=== PATIENT | male | born 1970 | race Caucasian/White ===

== ENCOUNTER 2021-06-27 08:00 | Outpatient (RCR) | payer BC, SELFPAY ==
[2021-06-24 08:12] VITALS: BP 137/57; PULSE 65; TEMP 36.2; BMI 48.7
--- NOTE | 2021-06-24 09:13 | HP.PCM_ITS ---
History of Present Illness Date of Service: 06/24/21 Chief Complaint: Venous stasis ulceration, right pretibial area History of Wound: This is a 51-year-old male with a longstanding history of chronic venous disease. Who presents with a superficial venous stasis ulceration on the right pretibial area. It has been present for only 1 to 2 weeks. He has had ulcerations and cellulitis in this area in the past. He is currently using Xeroform topically, and has been referred by his nurse practitioner in [place], [place]. The patient is morbidly obese. He denies a history of deep vein thrombosis in the past. He claims to sleep on a flat mattress at night. 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 He possesses compression stockings, which were obtained [id number], and has been noncompliant with their use. He experiences pain and swelling in his lower extremities, which has been chronic. [facility] Medical History (Updated 06/24/21 @ 09:[address] Rigo Harrington MD) Chronic venous insufficiency Hyperlipidemia Hyperpigmentation Hypertension Leg pain Leg swelling Lipodermatosclerosis Morbid obesity Venous hypertension, chronic, with inflammation Venous hypertension, chronic, with ulcer and inflammation Venous stasis ulcer Home Medications furosemide 40 mg PO BID 06/24/21 [History Last Taken Unknown] lansoprazole 30 mg PO DAILY 06/24/21 [History Last Taken Unknown] losartan 100 mg PO DAILY 06/24/21 [History Last Taken Unknown] pravastatin 10 mg PO DAILY 06/24/21 [History Last Taken Unknown] Surgical History (Updated 06/24/21 @ 09:[address] Rigo Harrington MD) H/O umbilical hernia repair Social History (Updated 06/24/21 @ 09:[address] 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 General Appearance: cooperative, comfortable, well kempt and well developed Orientation / Consciousness: awake, oriented to person, oriented to place and oriented to time HEENT normocephalic and head/scalp atraumatic Head and Scalp: normal to inspection, normocephalic and atraumatic External Ear: external ears normal Eyes PERRL and EOMs intact bilaterally General Eye: normal appearance of both eyes Resp normal respiratory effort, normal air movement, no retractions and no use of accessory muscles Effort and Inspection: able to speak in complete sentences Extremity no calf tenderness Extremity Narrative: No significant swelling or edema are noted in the patient's lower extremities bilaterally. Chronic hyperpigmentation is noted in the gaiter areas bilaterally, as well as lipodermatosclerosis. General Extremity: Negative for clubbing or cyanosis Skin Wound Narrative: A clustered superficial ulceration is noted on the right pretibial area. Dimensions are documented elsewhere. There is no sign of infection or cellulitis. Neuro oriented x3, CN's II-XII intact bilaterally and moves all extremities Psych Appearance: grossly normal and appropriate Attitude: calm Activity / Motor Behavior: appropriate eye contact Speech: normal speech Mood & Affect: euthymic mood Thought Process: normal thought process Thought Content: normal thought content Attention / Concentration: attention grossly intact Debridement Note Debridement Note Post-Debridement Measurements and Additional Note: Post-Debridement Measurements/Treatment - Nurse 1 - General Ulcer Assessment Start: 06/24/21 08:12 Freq: Status: Active Protocol: .LOWLOUIE Activity Type Activity Date Activity User E-Sign Co-Sign Detail Recorded Client Recorded Date Recorded By Document 06/24/21 08:12 JASON [id number] 06/24/21 08:28 JASON 06/24/21 08:12 - Today's Visit Information Type of service Initial Visit Arrival Mode Ambulatory Patient Identification Verified (Name & Yes ) Height and Weight Height 5 ft 9 in Weight 330 lb Weight in Pounds 330.0 lbs Weight Measurement Method Estimated by Patient Body Mass Index (BMI) 48.7 BMI Classification Obese BSA - Priscilla 2.56 Vital Signs Temperature (97.8 F-99.1 F) 97.2 F L Temperature Source Temporal Pulse Rate (60-100) 65 Pulse Location Monitor Blood Pressure (90/60-120/80) 137/57 H Blood Pressure Mean 83 Source Monitor Position Semi-Fowlers Blood Pressure Location Left Arm History Since Last Visit- (Skip if this is Patient's initial visit) Have you changed medications since your No last visit? Any new allergies or adverse reactions No Had a fall/change in ADL's that may No increase risk of falls Signs or symptoms of abuse and/or No neglect since last visit Have you been in the hospital since your No last visit? Has dressing in place as prescribed No Has compression in place as prescribed N/A Has offloadiing in place as prescribed N/A Experienced any changes in pain level or No management Left Footwear Regular Shoe Right Footwear Regular Shoe Pain Scale: 0-10 Numeric Is Patient Pain Free? Yes WC - Nurse 1 - General Ulcer Measurement Start: 06/24/21 08:12 Freq: Status: Active Protocol: Activity Type Activity Date Activity User E-Sign Co-Sign Detail Recorded Client Recorded Date Recorded By Document 06/24/21 08:12 JASON [id number] 06/24/21 08:28 JASON 06/24/21 08:12 Wound Center Nurse 1 #1 RLE Cluster -Current Size (cm) - Length 8 -Current Size (cm) - Width 10 -Current Size (cm) - Depth 0.1 -Total Square Cm 80 -Exudate Amt Small -Exudate Type Serosanguineous -Wound Margin Distinct, Outline Attached -Granulation Amt Small (1-33%) -Granulation Quality Red -Necrosis Amt None Present (0 %) -Texture (Earlene-wound Skin Appearance) Assessed, Scarring -Moisture (Earlene-wound Skin Appearance) Assessed,Dry/ Scaly -Color (Earlene-wound Skin Appearance) No Abnormality, Assessed -Temperature (Earlene-wound Skin No Abnormality Appearance) (Pt Warm) -Tenderness on Palpation (Earlene-wound No Skin Appearance) -Ulcer Cleansing soap and water -Foul Odor after Cleansing No -Anesthetic Used 5% Lidocaine Gel Right Ankle (cm) 29.1 Left Calf (cm) 46 Left Ankle (cm) 28.2 No debridement was completed: No debridement was completed today Assessment/Plan Assessment/Plan (1) Venous hypertension, chronic, with ulcer and inflammation: CODE(S): I87.339 - Chronic venous hypertension (idiopathic) with ulcer and inflammation of unspecified lower extremity; L97.909 - Non-pressure chronic ulcer of unspecified part of unspecified lower leg with unspecified severity QUALIFIERS: Laterality: right Qualified Code(s): I87.331 - Chronic venous hypertension (idiopathic) with ulcer and inflammation of right lower extremity; L97.919 - Non-pressure chronic ulcer of unspecified part of right lower leg with unspecified severity (2) Chronic venous insufficiency: CODE(S): I87.2 - Venous insufficiency (chronic) (peripheral) (3) Venous stasis ulcer: CODE(S): I83.009 - Varicose veins of unspecified lower extremity with ulcer of unspecified site; L97.909 - Non-pressure chronic ulcer of unspecified part of unspecified lower leg with unspecified severity QUALIFIERS: Venous stasis ulcer site: calf Varicose vein presence: without varicose veins Laterality: right Non-pressure ulcer stage: limited to breakdown of skin Qualified Code(s): I87.2 - Venous insufficiency (chronic) (peripheral); L97.211 - Non-pressure chronic ulcer of right calf limited to breakdown of skin (4) Morbid obesity: CODE(S): E66.01 - Morbid (severe) obesity due to excess calories (5) Hyperpigmentation: CODE(S): L81.9 - Disorder of pigmentation, unspecified (6) Lipodermatosclerosis: CODE(S): I83.10 - Varicose veins of unspecified lower extremity with inflammation QUALIFIERS: Laterality: bilateral Qualified Code(s): I83.11 - Varicose veins of right lower extremity with inflammation; I83.12 - Varicose veins of left lower extremity with inflammation (7) Hypertension: CODE(S): I10 - Essential (primary) hypertension (8) Hyperlipidemia: CODE(S): E78.5 - Hyperlipidemia, unspecified (9) Leg pain: CODE(S): M79.606 - Pain in leg, unspecified QUALIFIERS: Laterality: bilateral Qualified Code(s): M79.604 - Pain in right leg; M79.605 - Pain in left leg (10) Leg swelling: CODE(S): M79.89 - Other specified soft tissue disorders PLAN: This is a 51-year-old male with a longstanding history of chronic venous insufficiency, venous hypertension with inflammation, leg pain, and leg swelling in his lower extremities. He presents with an ulceration in the right lower extremity, which is recurrent. He has had prior ulcerations in the past. 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 He is morbidly obese. We are to implement a regimen of conservative treatment measures, which is to include leg elevation, avoidance of idle standing and sitting, active lifestyle, etc. Compression is to be implemented to the right lower extremity initially by means of an Unna boot, applied today, which will be changed twice weekly. He is to wear his current compression stocking to the left lower extremity daily. The patient has been advised that leg elevation should be to heart level, or higher, as much as possible. Weight loss has been recommended. The patient is to return in 1 week for reassessment. A venous duplex examination is to be obtained to assess the status of the venous system in the patient's lower extremities. Ultimately, the patient will transition to graduated compression stockings of at least 20 to 30 mmHg compression, to be worn long-term. Ultimately, patient may be a candidate for intervention relative to his venous disease, based upon the findings of his upcoming venous duplex examination. Total time 63 minutes.
[2021-06-27 08:13] VITALS: BP 145/75; PULSE 56; RESP 18; TEMP 36.3; BMI 48.7
--- NOTE | 2021-07-08 08:08 | VDLE_ITS ---
Reason For Study: non healing wound RIGHT LEFT CFV is compressible, spontaneous, phasic, CFV is compressible, spontaneous, phasic, competent and demonstrates normal competent, and demonstrates normal augmentation. augmentation. FV is compressible, spontaneous, phasic, FV is compressible, spontaneous, phasic, competent and demonstrates normal competent and demonstrates normal augmentation. augmentation. POP V is compressible, spontaneous, phasic, POP V is compressible, spontaneous, phasic, competent and demonstrates normal competent and demonstrates normal augmentation. augmentation. T/P Trunk is compressible. T/P Trunk is compressible. PTV is compressible. PTV is compressible. RT PerV is compressible. LT PerV is compressible. SFJ is competent and measures 1.06 cm. SFJ is competent and measures 1.01 cm. GSV proximal thigh measures .49 x .55 cm. GSV proximal thigh measures .38 x .35 cm. GSV at knee measures .46 x .43 cm. GSV at knee measures .31 x .34 cm. GSV INCOMPETENT throughout for greater than GSV INCOMPETENT throughout for greater than 0.5 seconds. 0.5 seconds. SSV proximal calf is INCOMPETENT for greater SSV proximal calf is INCOMPETENT for greater than 0.5 seconds and measures .15 x .15 cm. than 0.5 seconds and measures .32 x .32 cm. ASV distal thigh is INCOMPETENT for greater than 0.5 seconds and measures .29 x .31 cm. Procedure This is a venous duplex using B-mode, color flow and spectral Doppler. Exam performed in department. The exam was diagnostic. VL/Venous Duplex US - [facility] Extrem Interpretation Summary Deep veins of the lower extremities are bilaterally patent and compressible seg mentally. There is no evidence of deep vein thrombosis on either side. Valvular competence appears in tact within the proximal deep venous systems bilaterally. The great saphenous veins appear bila terally patent and compressible segmentally. Sapheno-femoral junctions are bilaterally competent . Segmental valvular incompetence is noted within the great saphenous veins bilaterally. Small saphe nous veins are patent and incompetent bilaterally. The accessory saphenous vein in the right distal t high is incompetent. Ordering Physician: Rigo Harrington Performed By: Drew Martinez RVT
== END 2021-06-28 23:59 ==
LOC: WC 08:00
PROVIDERS: PCP Nurse Practitioner Family; Visit Provider Surgery
DX: I87.331 Chronic venous hypertension (idiopathic) with ulcer and inflammation of right lower extremity (principal); L97.811 Non-pressure chronic ulcer of other part of right lower leg limited to breakdown of skin; E66.01 Morbid (severe) obesity due to excess calories; Z91.19 Patient's noncompliance with other medical treatment and regimen; E78.5 Hyperlipidemia, unspecified; I10 Essential (primary) hypertension; M79.89 Other specified soft tissue disorders; Z68.42 Body mass index [BMI] 45.0-49.9, adult; I83.12 Varicose veins of left lower extremity with inflammation; M79.605 Pain in left leg; M79.604 Pain in right leg
CPT/HCPCS: 29580; 99213; G0463

== ENCOUNTER 2021-07-29 08:00 | Outpatient (RCR) | payer BC, SELFPAY ==
[2021-06-29 00:40] VITALS: BP 145/75; PULSE 56; RESP 18; TEMP 36.3
[2021-07-01 08:16] VITALS: BP 145/78; PULSE 100; TEMP 36.3; BMI 48.7
--- NOTE | 2021-07-01 08:40 | HP.PCM_ITS ---
History of Present Illness Date of Service: 07/01/21 Chief Complaint: Venous stasis ulceration, right pretibial area History of Wound: This is a 51-year-old male with a longstanding history of chronic venous disease. Who presented with a superficial venous stasis ulceration on the right pretibial area. It has been present for only 1 to 2 weeks. He has had ulcerations and cellulitis in this area in the past. He had been using Xeroform topically, and was referred by his nurse practitioner in [place], [place]. The patient is morbidly obese. He denies a history of deep vein thrombosis in the past. He claims to sleep on a flat mattress at night. 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 He possesses compression stockings, which were obtained [id number], and has been noncompliant with their use. He experiences pain and swelling in his lower extremities, which has been chronic. [facility] Medical History (Updated 06/24/21 @ 09:[address] Rigo Harrington MD) Chronic venous insufficiency Hyperlipidemia Hyperpigmentation Hypertension Leg pain Leg swelling Lipodermatosclerosis Morbid obesity Venous hypertension, chronic, with inflammation Venous hypertension, chronic, with ulcer and inflammation Venous stasis ulcer Home Medications furosemide 40 mg PO BID 06/24/21 [History Last Taken Unknown] lansoprazole 30 mg PO DAILY 06/24/21 [History Last Taken Unknown] losartan 100 mg PO DAILY 06/24/21 [History Last Taken Unknown] pravastatin 10 mg PO DAILY 06/24/21 [History Last Taken Unknown] Surgical History (Updated 06/24/21 @ 09:[address] Rigo Harrington MD) H/O umbilical hernia repair Social History (Updated 06/24/21 @ 09:[address] 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 Const alert, oriented x3, no apparent distress and well nourished General Appearance: cooperative, comfortable and well developed Orientation / Consciousness: awake, oriented to person, oriented to place and oriented to time HEENT normocephalic and head/scalp atraumatic Head and Scalp: normal to inspection, normocephalic and atraumatic External Ear: external ears normal Eyes PERRL and EOMs intact bilaterally General Eye: normal appearance of both eyes Resp normal respiratory effort, normal air movement, no retractions and no use of accessory muscles Effort and Inspection: able to speak in complete sentences Extremity no calf tenderness Extremity Narrative: Slight swelling and edema are noted in the patient's right lower extremity. But for the ulceration on the right pretibial area, the skin is largely intact, though slightly erythematous. The erythema is thought to represent an inflammatory process, rather than cellulitis. General Extremity: Negative for clubbing or cyanosis Skin Wound Narrative: The ulceration on the right pretibial/lateral calf persists. There is a moderate amount of bioburden. There is no sign of infection or cellulitis. Dimensions are documented elsewhere. Neuro oriented x3, CN's II-XII intact bilaterally, moves all extremities and no focal motor deficits Sensorium / Orientation: awake, oriented to person, oriented to place and oriented to time Psych Appearance: grossly normal and appropriate Attitude: calm Activity / Motor Behavior: appropriate eye contact Speech: normal speech Mood & Affect: euthymic mood Thought Process: normal thought process Thought Content: normal thought content Attention / Concentration: attention grossly intact Debridement Note Debridement Note Post-Debridement Measurements and Additional Note: Post-Debridement Measurements/Treatment - Nurse 1 - General Ulcer Assessment Start: 07/01/21 08:16 Freq: Status: Active Protocol: ELVER.CEM Activity Type Activity Date Activity User E-Sign Co-Sign Detail Recorded Client Recorded Date Recorded By Document 07/01/21 08:16 MIGUEL [id number] 07/01/21 08:28 MIGUEL 07/01/21 08:16 - Today's Visit Information Type of service Follow-up Visit (Physician/[employer] ) Arrival Mode Ambulatory Patient Identification Verified (Name & Yes ) Height and Weight Body Mass Index (BMI) 48.7 BMI Classification Obese Vital Signs Temperature (97.8 F-99.1 F) 97.4 F L Temperature Source Temporal Pulse Rate (60-100) 100 Pulse Location Monitor Blood Pressure (90/60-120/80) 145/78 H Blood Pressure Mean 100 Source Monitor History Since Last Visit- (Skip if this is Patient's initial visit) Have you changed medications since your No last visit? Any new allergies or adverse reactions No Had a fall/change in ADL's that may No increase risk of falls Signs or symptoms of abuse and/or No neglect since last visit Have you been in the hospital since your No last visit? Has dressing in place as prescribed Yes Has compression in place as prescribed No Has offloadiing in place as prescribed N/A Experienced any changes in pain level or No management Left Footwear Regular Shoe Right Footwear Regular Shoe WC - Nurse 1 - General Ulcer Measurement Start: 07/01/21 08:16 Freq: Status: Active Protocol: Activity Type Activity Date Activity User E-Sign Co-Sign Detail Recorded Client Recorded Date Recorded By Document 07/01/21 08:16 MIGUEL [id number] 07/01/21 08:28 MIGUEL 07/01/21 08:16 Wound Center Nurse 1 #1 RLE Cluster -Combined with other wound No -Current Size (cm) - Length 2 -Current Size (cm) - Width 2.4 -Current Size (cm) - Depth 0.1 -Total Square Cm 4.8 -Tunneling No -Undermining/Tunneling No -Circular Undermining No -Change in Wound Grade/Stage No -Exudate Amt None Present -Wound Margin Distinct, Outline Attached -Granulation Amt Small (1-33%) -Granulation Quality Red -Necrosis Amt Small (1-33%) -Necrotic Tissue Type Eschar -Texture (Earlene-wound Skin Appearance) No Abnormality, Assessed -Color (Earlene-wound Skin Appearance) No Abnormality, Assessed -Temperature (Earlene-wound Skin No Abnormality Appearance) (Pt Warm) -Tenderness on Palpation (Earlene-wound Yes Skin Appearance) -Ulcer Cleansing soap and water -Anesthetic Used 5% Lidocaine Gel Right Calf (cm) 47.5 Right Ankle (cm) 22.2 Wound debrided: Right pretibial/lateral calf Laterality: Right Type of Debridement: Excisional debridement Anesthesia Used: 5% Lidocaine Gel Depth: Down to and including healthy tissue and in the subcutaneous layer Percentage of wound debrided: 100 Instrument Used: 5mm curette Tissue Removed: Bioburden Severity: Fat Layer Exposed Amount of bleeding with debridement: Mild Bleeding Controlled with: Compression and gauze Patient tolerated procedure: Patient tolerated procedure well Assessment/Plan Assessment/Plan (1) Venous stasis ulcer: CODE(S): I83.009 - Varicose veins of unspecified lower extremity with ulcer of unspecified site; L97.909 - Non-pressure chronic ulcer of unspecified part of unspecified lower leg with unspecified severity QUALIFIERS: Venous stasis ulcer site: calf Varicose vein presence: without varicose veins Laterality: right Non-pressure ulcer stage: limited to breakdown of skin Qualified Code(s): I87.2 - Venous insufficiency (chronic) (peripheral); L97.211 - Non-pressure chronic ulcer of right calf limited to breakdown of skin (2) Venous hypertension, chronic, with ulcer and inflammation: CODE(S): I87.339 - Chronic venous hypertension (idiopathic) with ulcer and inflammation of unspecified lower extremity; L97.909 - Non-pressure chronic ulcer of unspecified part of unspecified lower leg with unspecified severity QUALIFIERS: Laterality: right Qualified Code(s): I87.331 - Chronic venous hypertension (idiopathic) with ulcer and inflammation of right lower extremity; L97.919 - Non-pressure chronic ulcer of unspecified part of right lower leg with unspecified severity (3) Venous hypertension, chronic, with inflammation: CODE(S): I87.329 - Chronic venous hypertension (idiopathic) with inflammation of unspecified lower extremity (4) Chronic venous insufficiency: CODE(S): I87.2 - Venous insufficiency (chronic) (peripheral) (5) Leg swelling: CODE(S): M79.89 - Other specified soft tissue disorders (6) Leg pain: CODE(S): M79.606 - Pain in leg, unspecified QUALIFIERS: Laterality: bilateral Qualified Code(s): M79.604 - Pain in right leg; M79.605 - Pain in left leg (7) Hyperlipidemia: CODE(S): E78.5 - Hyperlipidemia, unspecified (8) Hypertension: CODE(S): I10 - Essential (primary) hypertension (9) Lipodermatosclerosis: CODE(S): I83.10 - Varicose veins of unspecified lower extremity with inflammation QUALIFIERS: Laterality: bilateral Qualified Code(s): I83.11 - Va ricose veins of right lower extremity with inflammation; I83.12 - Varicose veins of left lower extremity with inflammation (10) Hyperpigmentation: CODE(S): L81.9 - Disorder of pigmentation, unspecified (11) Morbid obesity: CODE(S): E66.01 - Morbid (severe) obesity due to excess calories (12) H/O umbilical hernia repair: CODE(S): Z98.890 - Other specified postprocedural states; Z87.19 - Personal history of other diseases of the digestive system PLAN: This is a 51-year-old male with a longstanding history of chronic venous insufficiency, venous hypertension with inflammation, leg pain, and leg swelling in his lower extremities. He presented with an ulceration in the right lower extremity, which is recurrent. He has had prior ulcerations in the past. 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 He is morbidly obese. We are to implement a regimen of conservative treatment measures, which is to include leg elevation, avoidance of idle standing and sitting, active lifestyle, etc. Compression is to be continued to the right lower extremity by means of an Unna boot, applied twice weekly. Promogran will be applied each time to the ulceration topically. He is to wear his current compression stocking to the left lower extremity daily. The patient has been advised that leg elevation s hould be to heart level, or higher, as much as possible. Weight loss has been recommended. The patient is to return in 1 week for reassessment. A venous duplex examination is to be obtained to assess the status of the venous system in the patient's lower extremities, and is scheduled for 1 week from today. Ultimately, the patient will transition to graduated compression stockings of at least 20 to 30 mmHg compression, to be worn long-term. Ultimately, patient may be a candidate for intervention relative to his venous disease, based upon the findings of his upcoming venous duplex examination. Total time 29 minutes.
[2021-07-08 09:05] VITALS: BP 140/64; PULSE 59; RESP 20; TEMP 36.6; BMI 48.7
--- NOTE | 2021-07-08 14:19 | PCM.WC.HP ---
History of Present Illness Date of Service: 07/08/21 Chief Complaint: Venous stasis ulceration, right pretibial area History of Wound: This is a 51-year-old male with a longstanding history of chronic venous disease. He presented with a superficial venous stasis ulceration on the right pretibial area. It has been present for only 1 to 2 weeks. He has had ulcerations and cellulitis in this area in the past. He had been using Xeroform topically, and was referred by his nurse practitioner in [place], [place]. The patient is morbidly obese. He denies a history of deep vein thrombosis in the past. He claims to sleep on a flat mattress at night. 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 He possesses compression stockings, which were obtained [id number], and has been noncompliant with their use. He experiences pain and swelling in his lower extremities, which has been chronic. FOR[facility]LY [facility] Medical History Chronic venous insufficiency Hyperlipidemia Hyperpigmentation Hypertension Leg pain Leg swelling Lipodermatosclerosis Morbid obesity Venous hypertension, chronic, with inflammation Venous hypertension, chronic, with ulcer and inflammation Venous stasis ulcer Home Medications furosemide 40 mg PO BID 06/24/21 [History Last Taken Unknown] lansoprazole 30 mg PO DAILY 06/24/21 [History Last Taken Unknown] losartan 100 mg PO DAILY 06/24/21 [History Last Taken Unknown] pravastatin 10 mg PO DAILY 06/24/21 [History Last Taken Unknown] Surgical History H/O umbilical hernia repair Social History 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 Smoking Status: Never smoker details: The patient denies use of alcohol Vital Signs Vital Signs Vital Signs: 07/08/21 09:05 Temperature 97.8 F Temperature Source Temporal Pulse Rate 59 L Respiratory Rate 20 H Blood Pressure 140/64 H Blood Pressure Mean 89 Blood Pressure Source Monitor Weight Weight: 330 lb Body Mass Index (BMI) 48.7 Physical Exam Const alert, oriented x3, no apparent distress and well nourished General Appearance: cooperative, comfortable and well developed Orientation / Consciousness: awake, oriented to person, oriented to place and oriented to time Exam Limitations: no limitations HEENT normocephalic and head/scalp atraumatic Head and Scalp: normal to inspection, normocephalic and atraumatic External Ear: external ears normal Eyes PERRL and EOMs intact bilaterally General Eye: normal appearance of both eyes Resp normal respiratory effort, normal air movement, no retractions and no use of accessory muscles Effort and Inspection: able to speak in complete sentences Extremity no calf tenderness General Extremity: Negative for clubbing or cyanosis Skin Wound Narrative: The ulceration on the right pretibial/anterolateral aspect of the right calf persists. It is slightly smaller, but generally little changed in appearance. There is a small amount of bioburden. There is no sign of infection or cellulitis. Dimensions are documented elsewhere. Neuro oriented x3, CN's II-XII intact bilaterally and moves all extremities Psych mental status grossly normal Appearance: grossly normal and appropriate Attitude: calm Activity / Motor Behavior: appropriate eye contact Speech: normal speech Mood & Affect: euthymic mood Thought Process: normal thought process Thought Content: normal thought content Attention / Concentration: attention grossly intact Debridement Note Debridement Note Post-Debridement Measurements and Additional Note: Post-Debridement Measurements/Treatment - Nurse 1 - General Ulcer Assessment Start: 07/01/21 08:16 Freq: Status: Active Protocol: JUSTINE Activity Type Activity Date Activity User E-Sign Co-Sign Detail Recorded Client Recorded Date Recorded By Document 07/01/21 08:16 AK [id number] 07/01/21 08:28 AK Document 07/08/21 09:05 DL [id number] 07/08/21 09:17 DL 07/01/21 07/08/21 08:16 09:05 - Today's Visit Information Type of service Follow-up Visit Follow-up Visit (Physician/MANAGER LEARNING (Physician/MANAGER LEARNING ) ) Arrival Mode Ambulatory Ambulatory Transfer Assistance None Patient Identification Verified (Name & Yes ) Patient Requires Transmission-Based No Precautions Height and Weight Body Mass Index (BMI) 48.7 48.7 BMI Classification Obese Obese Vital Signs Temperature (97.8 F-99.1 F) 97.4 F L 97.8 F Temperature Source Temporal Temporal Pulse Rate (60-100) 100 59 L Pulse Location Monitor Monitor Respiratory Rate (12-18) 20 H Respiratory rate source Observation Blood Pressure (90/60-120/80) 145/78 H 140/64 H Blood Pressure Mean 100 89 Source Monitor Monitor History Since Last Visit- (Skip if this is Patient's initial visit) Have you changed medications since your No No last visit? Any new allergies or adverse reactions No No Had a fall/change in ADL's that may No No increase risk of falls Signs or symptoms of abuse and/or No No neglect since last visit Have you been in the hospital since your No No last visit? Has dressing in place as prescribed Yes Yes Has compression in place as prescribed No Yes Has offloadiing in place as prescribed N/A N/A Experienced any changes in pain level or No No management Left Footwear Regular Shoe Right Footwear Regular Shoe Pain Scale: 0-10 Numeric Is Patient Pain Free? Yes WC - Nurse 1 - General Ulcer Measurement Start: 07/01/21 08:16 Freq: Status: Active Protocol: Activity Type Activity Date Activity User E-Sign Co-Sign Detail Recorded Client Recorded Date Recorded By Document 07/01/21 08:16 AK [id number] 07/01/21 08:28 AK Document 07/08/21 09:05 DL [id number] 07/08/21 09:17 DL 07/01/21 07/08/21 08:16 09:05 Wound Center Nurse 1 #2 RLE Med Ankle -Current Size (cm) - Length 0.3 -Current Size (cm) - Width 0.3 -Current Size (cm) - Depth 0.1 -Total Square Cm 0.09 -Photo Taken No -Exudate Amt Small -Exudate Type Serosanguineous -Wound Margin Distinct, Outline Attached -Granulation Amt None Present (0 %) -Necrosis Amt Large (67-100%) -Necrotic Tissue Type Adherent Slough -Structure Exposed N/A -Texture (Earlene-wound Skin Appearance) Scarring -Moisture (Earlene-wound Skin Appearance) No Abnormality -Color (Earlene-wound Skin Appearance) Hemosiderin Staining -Temperature (Earlene-wound Skin No Abnormality Appearance) (Pt Warm) -Tenderness on Palpation (Earlene-wound No Skin Appearance) -Ulcer Cleansing Wound Cleanser -Foul Odor after Cleansing No -Anesthetic Used 4% Lidocaine Solution #1 RLE Cluster -Combined with other wound No -Current Size (cm) - Length 2 2.6 -Current Size (cm) - Width 2.4 2.1 -Current Size (cm) - Depth 0.1 0.1 -Total Square Cm 4.8 5.46 -Photo Taken No -Tunneling No -Undermining/Tunneling No -Circular Undermining No -Change in Wound Grade/Stage No -Exudate Amt None Present Medium -Exudate Type Serosanguineous -Wound Margin Distinct, Distinct, Outline Outline Attached Attached -Granulation Amt Small (1-33%) Medium (34-66%) -Granulation Quality Red -Necrosis Amt Small (1-33%) Medium (34-66%) -Necrotic Tissue Type Eschar Adherent Slough -Structure Exposed N/A -Texture (Earlene-wound Skin Appearance) No Abnormality, Scarring Assessed -Moisture (Earlene-wound Skin Appearance) No Abnormality -Color (Earlene-wound Skin Appearance) No Abnormality, Hemosiderin Assessed Staining -Temperature (Earlene-wound Skin No Abnormality No Abnormality Appearance) (Pt Warm) (Pt Warm) -Tenderness on Palpation (Earlene-wound Yes No Skin Appearance) -Ulcer Cleansing soap and water Wound Cleanser -Foul Odor after Cleansing No -Anesthetic Used 5% Lidocaine 4% Lidocaine Gel Solution Right Calf (cm) 47.5 45.2 Right Ankle (cm) 22.2 27.5 WC - Nurse 2 - General Ulcer CM Notes Start: 07/01/21 08:16 Freq: Status: Active Protocol: Activity Type Activity Date Activity User E-Sign Co-Sign Detail Recorded Client Recorded Date Recorded By Document 07/01/21 11:57 OVI [id number] 07/01/21 11:57 Document 07/08/21 12:49 PL [id number] 07/08/21 12:53 PL 07/01/21 07/08/21 11:57 12:49 Wound Center Nurse 2 #1 RLE Cluster -Time 08:35 09:38 -Correct Patient Yes Yes -Correct Side, Site, Position Yes Yes -Correct Procedure Yes Yes -Procedure Performed Yes Yes -Type of Procedure Debridement Debridement -Clinical Debridement Subcutaneous Subcutaneous -Tissue Removed Subcutaneous Subcutaneous -Post Debridement (cm) - Length 2.0 2.6 -Post Debridement (cm) - Width 2.4 2.1 -Post Debridement (cm) - Depth 0.4 0.1 -Total Square (Post) (cm) 4.80 5.46 -Area of Debridement (cm) - Length 2.0 2.6 -Area of Debridement (cm) - Width 2.4 2.1 -Total Square (Area) (cm) 4.80 5.46 -Tunneling No No -Undermining/Tunneling No No -Circular Undermining No No -Wound/Ulcer Outcome Not Healed Not Healed -Ulcer Cleansing Rinsed/ Rinsed/ Irrigated with Irrigated with Saline Saline -Foul Odor after Cleansing No No -Bioengineered Tissue No No -Bleeding Controlled with Pressure Pressure -Treatment Response Procedure Procedure Tolerated Well Tolerated Well -Debridement - Subq, 1st 20sq cm Yes Yes - Nurse 3 - General Ulcer D/C NN Start: 07/01/21 08:16 Freq: Status: Active Protocol: Activity Type Activity Date Activity User E-Sign Co-Sign Detail Recorded Client Recorded Date Recorded By Document 07/01/21 08:50 KR [id number] 07/01/21 08:51 KR Document 07/08/21 09:57 KR [id number] 07/08/21 09:58 KR 07/01/21 07/08/21 08:50 09:57 Wound Care Nurse 3 #2 RLE Med Ankle -Ulcer Cleansing Rinsed/ Irrigated with Saline -Primary Dressing Applied Promogran -Primary Dressing Covered/Secured with Dry Gauze -Promogran 1 #1 RLE Cluster -Ulcer Cleansing Rinsed/ Irrigated with Saline -Primary Dressing Applied Promogran -Primary Dressing Covered/Secured with Dry Gauze, Dry Gauze Secured with Tape -Promogran 1 Right -Multi-Layered Wrap Application Unna Boot - Unna Boot - Right ($) Right ($) Pain Scale: 0-10 Numeric Is Patient Pain Free? Yes Yes - Visit Discharge Discharge Condition Stable Stable Ambulatory Status Ambulatory Ambulatory Transportation Private Auto Private Auto Wound debrided: Right pretibial Laterality: Right Type of Debridement: Excisional debridement Anesthesia Used: 5% Lidocaine Gel Depth: Down to and including healthy tissue and in the subcutaneous layer Percentage of wound debrided: 100 Instrument Used: 5mm curette Tissue Removed: Bioburden Severity: Fat Layer Exposed Amount of bleeding with debridement: Mild Bleeding Controlled with: Compression and gauze Patient tolerated procedure: Patient tolerated procedure well Assessment/Plan Assessment/Plan (1) Venous hypertension, chronic, with inflammation: CODE(S): I87.329 - Chronic venous hypertension (idiopathic) with inflammation of unspecified lower extremity (2) Venous stasis ulcer: CODE(S): I83.009 - Varicose veins of unspecified lower extremity with ulcer of unspecified site; L97.909 - Non-pressure chronic ulcer of unspecified part of unspecified lower leg with unspecified severity QUALIFIERS: Venous stasis ulcer site: calf Varicose vein presence: without varicose veins Laterality: right Non-pressure ulcer stage: limited to breakdown of skin Qualified Code(s): I87.2 - Venous insufficiency (chronic) (peripheral); L97.211 - Non-pressure chronic ulcer of right calf limited to breakdown of skin (3) Venous hypertension, chronic, with ulcer and inflammation: CODE(S): I87.339 - Chronic venous hypertension (idiopathic) with ulcer and inflammation of unspecified lower extremity; L97.909 - Non-pressure chronic ulcer of unspecified part of unspecified lower leg with unspecified severity QUALIFIERS: Laterality: right Qualified Code(s): I87.331 - Chronic venous hypertension (idiopathic) with ulcer and inflammation of right lower extremity; L97.919 - Non-pressure chronic ulcer of unspecified part of right lower leg with unspecified severity (4) Chronic venous insufficiency: CODE(S): I87.2 - Venous insufficiency (chronic) (peripheral) (5) Leg swelling: CODE(S): M79.89 - Other specified soft tissue disorders (6) Leg pain: CODE(S): M79.606 - Pain in leg, unspecified QUALIFIERS: Laterality: bilateral Qualified Code(s): M79.604 - Pain in right leg; M79.605 - Pain in left leg (7) Hyperlipidemia: CODE(S): E78.5 - Hyperlipidemia, unspecified (8) Hypertension: CODE(S): I10 - Essential (primary) hypertension (9) Morbid obesity: CODE(S): E66.01 - Morbid (severe) obesity due to excess calories (10) Lipodermatosclerosis: CODE(S): I83.10 - Varicose veins of unspecified lower extremity with inflammation QUALIFIERS: Laterality: bilateral Qualified Code(s): I83.11 - Varicose veins of right lower extremity with inflammation; I83.12 - Varicose veins of left lower extremity with inflammation (11) Hyperpigmentation: CODE(S): L81.9 - Disorder of pigmentation, unspecified (12) H/O umbilical hernia repair: CODE(S): Z98.890 - Other specified postprocedural states; Z87.19 - Personal history of other diseases of the digestive system PLAN: This is a 51-year-old male with a longstanding history of chronic venous insufficiency, venous hypertension with inflammation, leg pain, and leg swelling in his lower extremities. He presented with an ulceration in the right lower extremity, which is recurrent. He has had prior ulcerations in the past. 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 He is morbidly obese. We are to implement a regimen of conservative treatment measures, which is to include leg elevation, avoidance of idle standing and sitting, active lifestyle, etc. Compression is to be continued to the right lower extremity by means of an Unna boot, applied twice weekly. Promogran will be applied each time to the ulceration topically. He is to wear his current compression stocking to the left lower extremity daily. The patient has been advised that leg elevation should be to heart level, or higher, as much as possible. Weight loss has been recommended. The patient is to return in 1 week for reassessment. A venous duplex examination was performed earlier today, the results of which are awaited. Ultimately, the patient will transition to graduated compression stockings of at least 20 to 30 mmHg compression, to be worn long-term. Ultimately, the patient may be a candidate for intervention relative to his venous disease, based upon the findings of his venous duplex examination. Total time 28 minutes.
[2021-07-11 08:02] VITALS: BP 145/74; PULSE 60; TEMP 36.2; BMI 48.7
[2021-07-15 07:58] VITALS: BP 138/69; PULSE 56; TEMP 36.5; BMI 48.7
--- NOTE | 2021-07-15 08:20 | PCM.WC.HP ---
History of Present Illness Date of Service: 07/15/21 Chief Complaint: Venous stasis ulceration, right pretibial area History of Wound: This is a 51-year-old male with a longstanding history of chronic venous disease. He presented with a superficial venous stasis ulceration on the right pretibial area. It has been present for only 1 to 2 weeks. He has had ulcerations and cellulitis in this area in the past. He had been using Xeroform topically, and was referred by his nurse practitioner in [place], [place]. The patient is morbidly obese. He denies a history of deep vein thrombosis in the past. He claims to sleep on a flat mattress at night. 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 He possesses compression stockings, which were obtained [id number], and has been noncompliant with their use. He experiences pain and swelling in his lower extremities, which has been chronic. [facility] Medical History Chronic venous insufficiency Hyperlipidemia Hyperpigmentation Hypertension Leg pain Leg swelling Lipodermatosclerosis Morbid obesity Venous hypertension, chronic, with inflammation Venous hypertension, chronic, with ulcer and inflammation Venous stasis ulcer Home Medications furosemide 40 mg PO BID 06/24/21 [History Last Taken Unknown] lansoprazole 30 mg PO DAILY 06/24/21 [History Last Taken Unknown] losartan 100 mg PO DAILY 06/24/21 [History Last Taken Unknown] pravastatin 10 mg PO DAILY 06/24/21 [History Last Taken Unknown] Surgical History H/O umbilical hernia repair Social History 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 Smoking Status: Never smoker details: The patient denies use of alcohol Vital Signs Vital Signs Vital Signs: 07/15/21 07:58 Temperature 97.7 F L Temperature Source Temporal Pulse Rate 56 L Blood Pressure 138/69 H Blood Pressure Mean 92 Blood Pressure Source Monitor Weight Weight: 330 lb Body Mass Index (BMI) 48.7 Physical Exam Const alert, oriented x3, no apparent distress and well nourished General Appearance: cooperative, comfortable and well developed Orientation / Consciousness: awake, oriented to person, oriented to place and oriented to time HEENT normocephalic and head/scalp atraumatic Head and Scalp: normal to inspection, normocephalic and atraumatic External Ear: external ears normal Eyes PERRL and EOMs intact bilaterally General Eye: normal appearance of both eyes Resp normal respiratory effort, normal air movement, no retractions and no use of accessory muscles Effort and Inspection: able to speak in complete sentences Extremity no calf tenderness Extremity Narrative: Slight swelling and edema are noted in the patient's right lower extremity. Hyperpigmentation is noted in the patient's right gaiter area, indicative of chronic venous skin changes. General Extremity: Negative for clubbing or cyanosis Skin Wound Narrative: The venous ulceration on the right pretibial area is much improved. Dimensions are documented elsewhere. There is no sign of infection or cellulitis. The base of the ulceration is pink and healthy, with active granulation tissue. There is evidence of epithelialization, and the ulceration is now clustered, with areas of epithelialization intermixed within the body of the ulceration. There is a small amount of bioburden. Neuro oriented x3, CN's II-XII intact bilaterally, moves all extremities and no focal motor deficits Sensorium / Orientation: awake, alert, oriented to person, oriented to place and oriented to time Psych Appearance: grossly normal and appropriate Attitude: calm Activity / Motor Behavior: appropriate eye contact Speech: normal speech Mood & Affect: euthymic mood Thought Process: normal thought process Thought Content: normal thought content Attention / Concentration: attention grossly intact Debridement Note Debridement Note Post-Debridement Measurements and Additional Note: Post-Debridement Measurements/Treatment - Nurse 1 - General Ulcer Assessment Start: 07/01/21 08:16 Freq: Status: Active Protocol: [email or web address] Activity Type Activity Date Activity User E-Sign Co-Sign Detail Recorded Client Recorded Date Recorded By Document 07/01/21 08:16 AK [id number] 07/01/21 08:28 AK Document 07/08/21 09:05 DL [id number] 07/08/21 09:17 DL Document 07/11/21 08:02 AK Desktop 07/11/21 08:05 AK Document 07/15/21 07:58 AK [id number] 07/15/21 08:04 AK 07/01/21 07/08/21 07/11/21 08:16 09:05 08:02 [facility] Today's Visit Information Type of service Follow-up Visit Follow-up Visit Nurse-only (Physician/INSTRUCTIONAL SERVICES SPECIALIST (Physician/INSTRUCTIONAL SERVICES SPECIALIST Visit ) ) Arrival Mode Ambulatory Ambulatory Ambulatory Transfer Assistance None Patient Identification Verified (Name & Yes Yes ) Patient Requires Transmission-Based No Precautions Height and Weight Body Mass Index (BMI) 48.7 48.7 48.7 BMI Classification Obese Obese Obese Vital Signs Temperature (97.8 F-99.1 F) 97.4 F L 97.8 F 97.2 F L Temperature Source Temporal Temporal Temporal Pulse Rate (60-100) 100 59 L 60 Pulse Location Monitor Monitor Monitor Respiratory Rate (12-18) 20 H Respiratory rate source Observation Blood Pressure (90/60-120/80) 145/78 H 140/64 H 145/74 H Blood Pressure Mean 100 89 97 Source Monitor Monitor Monitor History Since Last Visit- (Skip if this is Patient's initial visit) Have you changed medications since your No No No last visit? Any new allergies or adverse reactions No No No Had a fall/change in ADL's that may No No No increase risk of falls Signs or symptoms of abuse and/or No No No neglect since last visit Have you been in the hospital since your No No No last visit? Has dressing in place as prescribed Yes Yes Yes Has compression in place as prescribed No Yes Yes Has offloadiing in place as prescribed N/A N/A N/A Experienced any changes in pain level or No No management Left Footwear Regular Shoe Regular Shoe Right Footwear Regular Shoe Regular Shoe Pain Scale: 0-10 Numeric Is Patient Pain Free? Yes 07/15/21 07:58 [facility] Today's Visit Information Type of service Follow-up Visit (Physician/INSTRUCTIONAL SERVICES SPECIALIST ) Arrival Mode Ambulatory Transfer Assistance Patient Identification Verified (Name & Yes ) Patient Requires Transmission-Based Precautions Height and Weight Body Mass Index (BMI) 48.7 BMI Classification Obese Vital Signs Temperature (97.8 F-99.1 F) 97.7 F L Temperature Source Temporal Pulse Rate (60-100) 56 L Pulse Location Monitor Respiratory Rate (12-18) Respiratory rate source Blood Pressure (90/60-120/80) 138/69 H Blood Pressure Mean 92 Source Monitor History Since Last Visit- (Skip if this is Patient's initial visit) Have you changed medications since your No last visit? Any new allergies or adverse reactions No Had a fall/change in ADL's that may No increase risk of falls Signs or symptoms of abuse and/or No neglect since last visit Have you been in the hospital since your No last visit? Has dressing in place as prescribed Yes Has compression in place as prescribed Yes Has offloadiing in place as prescribed Yes Experienced any changes in pain level or management Left Footwear Regular Shoe Right Footwear Regular Shoe Pain Scale: 0-10 Numeric Is Patient Pain Free? WC - Nurse 1 - General Ulcer Measurement Start: 07/01/21 08:16 Freq: Status: Active Protocol: Activity Type Activity Date Activity User E-Sign Co-Sign Detail Recorded Client Recorded Date Recorded By Document 07/01/21 08:16 AK [id number] 07/01/21 08:28 AK Document 07/08/21 09:05 DL [id number] 07/08/21 09:17 DL Document 07/11/21 08:02 AK Desktop 07/11/21 08:05 AK Document 07/15/21 07:58 AK [id number] 07/15/21 08:04 AK 07/01/21 07/08/21 07/11/21 08:16 09:05 08:02 Wound Center Nurse 1 #2 RLE Med Ankle -Current Size (cm) - Length 0.3 -Current Size (cm) - Width 0.3 -Current Size (cm) - Depth 0.1 -Total Square Cm 0.09 -Photo Taken No -Exudate Amt Small -Exudate Type Serosanguineous -Wound Margin Distinct, Outline Attached -Granulation Amt None Present (0 %) -Necrosis Amt Large (67-100%) -Necrotic Tissue Type Adherent Slough -Structure Exposed N/A -Texture (Earlene-wound Skin Appearance) Scarring -Moisture (Earlene-wound Skin Appearance) No Abnormality -Color (Earlene-wound Skin Appearance) Hemosiderin Staining -Temperature (Earlene-wound Skin No Abnormality Appearance) (Pt Warm) -Tenderness on Palpation (Earlene-wound No Skin Appearance) -Ulcer Cleansing Wound Cleanser -Foul Odor after Cleansing No -Anesthetic Used 4% Lidocaine Solution #1 RLE Cluster -Combined with other wound No -Current Size (cm) - Length 2 2.6 -Current Size (cm) - Width 2.4 2.1 -Current Size (cm) - Depth 0.1 0.1 -Total Square Cm 4.8 5.46 -Photo Taken No -Tunneling No -Undermining/Tunneling No -Circular Undermining No -Change in Wound Grade/Stage No -Exudate Amt None Present Medium -Exudate Type Serosanguineous -Wound Margin Distinct, Distinct, Outline Outline Attached Attached -Granulation Amt Small (1-33%) Medium (34-66%) -Granulation Quality Red -Necrosis Amt Small (1-33%) Medium (34-66%) -Necrotic Tissue Type Eschar Adherent Slough -Structure Exposed N/A -Texture (Earlene-wound Skin Appearance) No Abnormality, Scarring Assessed -Moisture (Earlene-wound Skin Appearance) No Abnormality -Color (Earlene-wound Skin Appearance) No Abnormality, Hemosiderin Assessed Staining -Temperature (Earlene-wound Skin No Abnormality No Abnormality Appearance) (Pt Warm) (Pt Warm) -Tenderness on Palpation (Earlene-wound Yes No Skin Appearance) -Ulcer Cleansing soap and water Wound Cleanser Rinsed/ Irrigated with Saline -Foul Odor after Cleansing No -Anesthetic Used 5% Lidocaine 4% Lidocaine Gel Solution Right Calf (cm) 47.5 45.2 Right Ankle (cm) 22.2 27.5 Point of Measurement (cm from the medial instep) 07/15/21 07:58 Wound Center Nurse 1 #2 RLE Med Ankle -Current Size (cm) - Length -Current Size (cm) - Width -Current Size (cm) - Depth -Total Square Cm -Photo Taken -Exudate Amt -Exudate Type -Wound Margin -Granulation Amt -Necrosis Amt -Necrotic Tissue Type -Structure Exposed -Texture (Earlene-wound Skin Appearance) -Moisture (Earlene-wound Skin Appearance) -Color (Earlene-wound Skin Appearance) -Temperature (Earlene-wound Skin Appearance) -Tenderness on Palpation (Earlene-wound Skin Appearance) -Ulcer Cleansing -Foul Odor after Cleansing -Anesthetic Used #1 RLE Cluster -Combined with other wound -Current Size (cm) - Length 2 -Current Size (cm) - Width 2.1 -Current Size (cm) - Depth 0.1 -Total Square Cm 4.2 -Photo Taken No -Tunneling No -Undermining/Tunneling No -Circular Undermining No -Change in Wound Grade/Stage No -Exudate Amt -Exudate Type Serosanguineous -Wound Margin Distinct, Outline Attached -Granulation Amt Medium (34-66%) -Granulation Quality Deridder -Necrosis Amt Small (1-33%) -Necrotic Tissue Type Adherent Slough -Structure Exposed N/A -Texture (Earlene-wound Skin Appearance) Assessed, Scarring -Moisture (Earlene-wound Skin Appearance) No Abnormality, Assessed -Color (Earlene-wound Skin Appearance) Assessed, Hemosiderin Staining -Temperature (Earlene-wound Skin No Abnormality Appearance) (Pt Warm) -Tenderness on Palpation (Earlene-wound No Skin Appearance) -Ulcer Cleansing Rinsed/ Irrigated with Saline -Foul Odor after Cleansing -Anesthetic Used 5% Lidocaine Gel Right Calf (cm) 47 Right Ankle (cm) Point of Measurement (cm from the medial 29.5 instep) WC - Nurse 2 - General Ulcer CM Notes Start: 07/01/21 08:16 Freq: Status: Active Protocol: Activity Type Activity Date Activity User E-Sign Co-Sign Detail Recorded Client Recorded Date Recorded By Document 07/01/21 11:57 PL [id number] 07/01/21 11:57 PL Document 07/08/21 12:49 PL [id number] 07/08/21 12:53 PL 07/01/21 07/08/21 11:57 12:49 Wound Center Nurse 2 #1 RLE Cluster -Time 08:35 09:38 -Correct Patient Yes Yes -Correct Side, Site, Position Yes Yes -Correct Procedure Yes Yes -Procedure Performed Yes Yes -Type of Procedure Debridement Debridement -Clinical Debridement Subcutaneous Subcutaneous -Tissue Removed Subcutaneous Subcutaneous -Post Debridement (cm) - Length 2.0 2.6 -Post Debridement (cm) - Width 2.4 2.1 -Post Debridement (cm) - Depth 0.4 0.1 -Total Square (Post) (cm) 4.80 5.46 -Area of Debridement (cm) - Length 2.0 2.6 -Area of Debridement (cm) - Width 2.4 2.1 -Total Square (Area) (cm) 4.80 5.46 -Tunneling No No -Undermining/Tunneling No No -Circular Undermining No No -Wound/Ulcer Outcome Not Healed Not Healed -Ulcer Cleansing Rinsed/ Rinsed/ Irrigated with Irrigated with Saline Saline -Foul Odor after Cleansing No No -Bioengineered Tissue No No -Bleeding Controlled with Pressure Pressure -Treatment Response Procedure Procedure Tolerated Well Tolerated Well -Debridement - Subq, 1st 20sq cm Yes Yes WC - Nurse 3 - General Ulcer D/C NN Start: 07/01/21 08:16 Freq: Status: Active Protocol: Activity Type Activity Date Activity User E-Sign Co-Sign Detail Recorded Client Recorded Date Recorded By Document 07/01/21 08:50 KR [id number] 07/01/21 08:51 KR Document 07/08/21 09:57 KR [id number] 07/08/21 09:58 KR Document 07/11/21 08:02 AK Desktop 07/11/21 08:05 AK 07/01/21 07/08/21 07/11/21 08:50 09:57 08:02 Wound Care Nurse 3 #2 RLE Med Ankle -Ulcer Cleansing Rinsed/ Irrigated with Saline -Primary Dressing Applied Promogran -Primary Dressing Covered/Secured with Dry Gauze -Promogran 1 #1 RLE Cluster -Ulcer Cleansing Rinsed/ Rinsed/ Irrigated with Irrigated with Saline Saline -Primary Dressing Applied Promogran Promogran -Primary Dressing Covered/Secured with Dry Gauze, Dry Gauze Secured with Tape -Promogran 1 0 Right -Lotion applied to leg before No compression wrap -Multi-Layered Wrap Application Unna Boot - Unna Boot - Unna Boot - Right ($) Right ($) Right ($) Vital Signs Temperature (97.8 F-99.1 F) 97.2 F L Temperature Source Temporal Pulse Rate (60-100) 60 Pulse Location Monitor Blood Pressure (90/60-120/80) 145/74 H Blood Pressure Mean 97 Source Monitor Pain Scale: 0-10 Numeric Is Patient Pain Free? Yes Yes WC - Visit Discharge Discharge Condition Stable Stable Stable Ambulatory Status Ambulatory Ambulatory Ambulatory Transportation Private Auto Private Auto Private Auto Clinical Summary of Care Provided Yes Wound debrided: Right pretibial area Laterality: Right Type of Debridement: Excisional debridement Anesthesia Used: 5% Lidocaine Gel Depth: Down to and including healthy tissue and in the subcutaneous layer Percentage of wound debrided: 100 Instrument Used: 3mm curette Tissue Removed: Bioburden Severity: Fat Layer Exposed Amount of bleeding with debridement: Mild Bleeding Controlled with: Compression and gauze Patient tolerated procedure: Patient tolerated procedure well Assessment/Plan Assessment/Plan (1) Venous hypertension, chronic, with inflammation: CODE(S): I87.329 - Chronic venous hypertension (idiopathic) with inflammation of unspecified lower extremity (2) Venous stasis ulcer: CODE(S): I83.009 - Varicose veins of unspecified lower extremity with ulcer of unspecified site; L97.909 - Non-pressure chronic ulcer of unspecified part of unspecified lower leg with unspecified severity QUALIFIERS: Venous stasis ulcer site: calf Varicose vein presence: without varicose veins Laterality: right Non-pressure ulcer stage: limited to breakdown of skin Qualified Code(s): I87.2 - Venous insufficiency (chronic) (peripheral); L97.211 - Non-pressure chronic ulcer of right calf limited to breakdown of skin (3) Venous hypertension, chronic, with ulcer and inflammation: CODE(S): I87.339 - Chronic venous hypertension (idiopathic) with ulcer and inflammation of unspecified lower extremity; L97.909 - Non-pressure chronic ulcer of unspecified part of unspecified lower leg with unspecified severity QUALIFIERS: Laterality: right Qualified Code(s): I87.331 - Chronic venous hypertension (idiopathic) with ulcer and inflammation of right lower extremity; L97.919 - Non-pressure chronic ulcer of unspecified part of right lower leg with unspecified severity (4) Chronic venous insufficiency: CODE(S): I87.2 - Venous insufficiency (chronic) (peripheral) (5) Leg swelling: CODE(S): M79.89 - Other specified soft tissue disorders (6) Leg pain: CODE(S): M79.606 - Pain in leg, unspecified QUALIFIERS: Laterality: bilateral Qualified Code(s): M79.604 - Pain in right leg; M79.605 - Pain in left leg (7) Hyperlipidemia: CODE(S): E78.5 - Hyperlipidemia, unspecified (8) Hypertension: CODE(S): I10 - Essential (primary) hypertension (9) Lipodermatosclerosis: CODE(S): I83.10 - Varicose veins of unspecified lower extremity with inflammation QUALIFIERS: Laterality: bilateral Qualified Code(s): I83.11 - Varicose veins of right lower extremity with inflammation; I83.12 - Varicose veins of left lower extremity with inflammation (10) Hyperpigmentation: CODE(S): L81.9 - Disorder of pigmentation, unspecified (11) Morbid obesity: CODE(S): E66.01 - Morbid (severe) obesity due to excess calories (12) H/O umbilical hernia repair: CODE(S): Z98.890 - Other specified postprocedural states; Z87.19 - Personal history of other diseases of the digestive system PLAN: This is a 51-year-old male with a longstanding history of chronic venous insufficiency, venous hypertension with inflammation, leg pain, and leg swelling in his lower extremities. He presented with an ulceration in the right lower extremity, which is recurrent. He has had prior ulcerations in the past. 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 He is morbidly obese. We are to implement a regimen of conservative treatment measures, which is to include leg elevation, avoidance of idle standing and sitting, active lifestyle, etc. Compression is to be continued to the right lower extremity by means of an Unna boot, applied twice weekly. Promogran will be applied each time to the ulceration topically. He is to wear his current compression stocking to the left lower extremity daily. The patient has been advised that leg elevation should be to heart level, or higher, as much as possible. Weight loss has been recommended. The patient is to return in 1 week for reassessment. A venous duplex examination was recently performed, which revealed incompetence of the right great saphenous vein, the right small saphenous vein, and the right accessory saphenous vein in the distal thigh. We have briefly discussed the potential role of endovenous laser ablation of the incompetent superficial veins in the right lower extremity, a matter which may be considered in more detail in the future, depending on the patient's clinical course henceforth. Ultimately, the patient will transition to graduated compression stockings of at least 20 to 30 mmHg compression, to be worn long-term. Total time 29 minutes.
[2021-07-18 08:06] VITALS: BP 141/74; PULSE 54; RESP 22; TEMP 36.5; BMI 48.7
[2021-07-22 09:27] VITALS: BP 155/70; PULSE 65; TEMP 36.1; BMI 48.7
--- NOTE | 2021-07-22 12:37 | HP.PCM_ITS ---
History of Present Illness Date of Service: 07/22/21 Chief Complaint: Venous stasis ulceration, right pretibial area History of Wound: This is a 51-year-old male with a longstanding history of chronic venous disease. He presented with a superficial venous stasis ulceration on the right pretibial area. It has been present for only 1 to 2 weeks. He has had ulcerations and cellulitis in this area in the past. He had been using Xeroform topically, and was referred by his nurse practitioner in [place], [place]. The patient is morbidly obese. He denies a history of deep vein thrombosis in the past. He claims to sleep on a flat mattress at night. 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 He possesses compression stockings, which were obtained [id number], and has been noncompliant with their use. He experiences pain and swelling in his lower extremities, which has been chronic. [facility] Medical History Chronic venous insufficiency Hyperlipidemia Hyperpigmentation Hypertension Leg pain Leg swelling Lipodermatosclerosis Morbid obesity Venous hypertension, chronic, with inflammation Venous hypertension, chronic, with ulcer and inflammation Venous stasis ulcer Home Medications furosemide 40 mg PO BID 06/24/21 [History Last Taken Unknown] lansoprazole 30 mg PO DAILY 06/24/21 [History Last Taken Unknown] losartan 100 mg PO DAILY 06/24/21 [History Last Taken Unknown] pravastatin 10 mg PO DAILY 06/24/21 [History Last Taken Unknown] Surgical History H/O umbilical hernia repair Social History 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 Smoking Status: Never smoker details: The patient denies use of alcohol Vital Signs Vital Signs Vital Signs: 07/22/21 09:27 Temperature 96.9 F L Temperature Source Temporal Pulse Rate 65 Blood Pressure 155/70 H Blood Pressure Mean 98 Blood Pressure Source Monitor Blood Pressure Position Semi-Fowlers Blood Pressure Location Right Arm Weight Weight: 330 lb Body Mass Index (BMI) 48.7 Physical Exam Const alert, oriented x3, no apparent distress and well nourished General Appearance: cooperative, comfortable and well developed Orientation / Consciousness: awake, oriented to person, oriented to place and oriented to time HEENT normocephalic and head/scalp atraumatic Head and Scalp: normal to inspection, normocephalic and atraumatic External Ear: external ears normal Eyes PERRL and EOMs intact bilaterally General Eye: normal appearance of both eyes Resp normal respiratory effort, normal air movement, no retractions and no use of accessory muscles Effort and Inspection: able to speak in complete sentences Extremity no calf tenderness General Extremity: Negative for clubbing or cyanosis Skin Wound Narrative: Slight swelling and edema are noted in the patient's right lower extremity. The ulceration on the right anterolateral calf persists, but it is smaller in size. Dimensions are documented elsewhere. There is evidence of epithelialization. There is no sign of infection or cellulitis. There is a moderate amount of bioburden. Neuro oriented x3, CN's II-XII intact bilaterally and moves all extremities Sensorium / Orientation: awake, alert, oriented to person, oriented to place and oriented to time Psych Appearance: grossly normal and appropriate Attitude: calm Activity / Motor Behavior: appropriate eye contact Speech: normal speech Mood & Affect: euthymic mood Thought Process: normal thought process Thought Content: normal thought content Attention / Concentration: attention grossly intact Debridement Note Debridement Note Post-Debridement Measurements and Additional Note: Post-Debridement Measurements/Treatment WC - Nurse 1 - General Ulcer Assessment Start: 07/01/21 08:16 Freq: Status: Active Protocol: ELVER.CEM Activity Type Activity Date Activity User E-Sign Co-Sign Detail Recorded Client Recorded Date Recorded By Document 07/01/21 08:16 AK [id number] 07/01/21 08:28 AK Document 07/08/21 09:05 DL [id number] 07/08/21 09:17 DL Document 07/11/21 08:02 AK Desktop 07/11/21 08:05 AK Document 07/15/21 07:58 AK [id number] 07/15/21 08:04 AK Document 07/18/21 08:06 DL [id number] 07/18/21 08:18 DL Document 07/22/21 09:27 KR [id number] 07/22/21 09:31 KR 07/01/21 07/08/21 07/11/21 08:16 09:05 08:02 - Today's Visit Information Type of service Follow-up Visit Follow-up Visit Nurse-only (Physician/COMPUTER SYSTEMS TECHNICIAN (Physician/COMPUTER SYSTEMS TECHNICIAN Visit ) ) Arrival Mode Ambulatory Ambulatory Ambulatory Transfer Assistance None Patient Identification Verified (Name & Yes Yes ) Patient Requires Transmission-Based No Precautions Height and Weight Body Mass Index (BMI) 48.7 48.7 48.7 BMI Classification Obese Obese Obese Vital Signs Temperature (97.8 F-99.1 F) 97.4 F L 97.8 F 97.2 F L Temperature Source Temporal Temporal Temporal Pulse Rate (60-100) 100 59 L 60 Pulse Location Monitor Monitor Monitor Respiratory Rate (12-18) 20 H Respiratory rate source Observation Blood Pressure (90/60-120/80) 145/78 H 140/64 H 145/74 H Blood Pressure Mean 100 89 97 Source Monitor Monitor Monitor Position Blood Pressure Location History Since Last Visit- (Skip if this is Patient's initial visit) Have you changed medications since your No No No last visit? Any new allergies or adverse reactions No No No Had a fall/change in ADL's that may No No No increase risk of falls Signs or symptoms of abuse and/or No No No neglect since last visit Have you been in the hospital since your No No No last visit? Has dressing in place as prescribed Yes Yes Yes Has compression in place as prescribed No Yes Yes Has offloadiing in place as prescribed N/A N/A N/A Experienced any changes in pain level or No No management Left Footwear Regular Shoe Regular Shoe Right Footwear Regular Shoe Regular Shoe Pain Scale: 0-10 Numeric Is Patient Pain Free? Yes 07/15/21 07/18/21 07/22/21 07:58 08:06 09:27 - Today's Visit Information Type of service Follow-up Visit Nurse-only Follow-up Visit (Physician/COMPUTER SYSTEMS TECHNICIAN Visit (Physician/COMPUTER SYSTEMS TECHNICIAN ) ) Arrival Mode Ambulatory Ambulatory Ambulatory Transfer Assistance None Patient Identification Verified (Name & Yes Yes Yes ) Patient Requires Transmission-Based No Precautions Height and Weight Body Mass Index (BMI) 48.7 48.7 48.7 BMI Classification Obese Obese Obese Vital Signs Temperature (97.8 F-99.1 F) 97.7 F L 97.7 F L 96.9 F L Temperature Source Temporal Temporal Temporal Pulse Rate (60-100) 56 L 54 L 65 Pulse Location Monitor Monitor Monitor Respiratory Rate (12-18) 22 H Respiratory rate source Observation Blood Pressure (90/60-120/80) 138/69 H 141/74 H 155/70 H Blood Pressure Mean 92 96 98 Source Monitor Monitor Monitor Position Semi-Fowlers Blood Pressure Location Right Arm History Since Last Visit- (Skip if this is Patient's initial visit) Have you changed medications since your No No No last visit? Any new allergies or adverse reactions No No No Had a fall/change in ADL's that may No No No increase risk of falls Signs or symptoms of abuse and/or No No No neglect since last visit Have you been in the hospital since your No No No last visit? Has dressing in place as prescribed Yes Yes Yes Has compression in place as prescribed Yes No Yes Has offloadiing in place as prescribed Yes N/A N/A Experienced any changes in pain level or No No management Left Footwear Regular Shoe Regular Shoe Right Footwear Regular Shoe Regular Shoe Pain Scale: 0-10 Numeric Is Patient Pain Free? Yes Yes WC - Nurse 1 - General Ulcer Measurement Start: 07/01/21 08:16 Freq: Status: Active Protocol: Activity Type Activity Date Activity User E-Sign Co-Sign Detail Recorded Client Recorded Date Recorded By Document 07/01/21 08:16 AK [id number] 07/01/21 08:28 AK Document 07/08/21 09:05 DL [id number] 07/08/21 09:17 DL Document 07/11/21 08:02 AK Desktop 07/11/21 08:05 AK Document 07/15/21 07:58 AK [id number] 07/15/21 08:04 AK Document 07/18/21 08:06 DL [id number] 07/18/21 08:18 DL Document 07/22/21 09:27 KR [id number] 07/22/21 09:31 KR 07/01/21 07/08/21 07/11/21 08:16 09:05 08:02 Wound Center Nurse 1 #2 RLE Med Ankle -Current Size (cm) - Length 0.3 -Current Size (cm) - Width 0.3 -Current Size (cm) - Depth 0.1 -Total Square Cm 0.09 -Photo Taken No -Exudate Amt Small -Exudate Type Serosanguineous -Wound Margin Distinct, Outline Attached -Granulation Amt None Present (0 %) -Necrosis Amt Large (67-100%) -Necrotic Tissue Type Adherent Slough -Structure Exposed N/A -Texture (Earlene-wound Skin Appearance) Scarring -Moisture (Earlene-wound Skin Appearance) No Abnormality -Color (Earlene-wound Skin Appearance) Hemosiderin Staining -Temperature (Earlene-wound Skin No Abnormality Appearance) (Pt Warm) -Tenderness on Palpation (Earlene-wound No Skin Appearance) -Ulcer Cleansing Wound Cleanser -Foul Odor after Cleansing No -Anesthetic Used 4% Lidocaine Solution #1 RLE Cluster -Combined with other wound No -Current Size (cm) - Length 2 2.6 -Current Size (cm) - Width 2.4 2.1 -Current Size (cm) - Depth 0.1 0.1 -Total Square Cm 4.8 5.46 -Photo Taken No -Tunneling No -Undermining/Tunneling No -Circular Undermining No -Change in Wound Grade/Stage No -Exudate Amt None Present Medium -Exudate Type Serosanguineous -Wound Margin Distinct, Distinct, Outline Outline Attached Attached -Granulation Amt Small (1-33%) Medium (34-66%) -Granulation Quality Red -Necrosis Amt Small (1-33%) Medium (34-66%) -Necrotic Tissue Type Eschar Adherent Slough -Structure Exposed N/A -Texture (Earlene-wound Skin Appearance) No Abnormality, Scarring Assessed -Moisture (Earlene-wound Skin Appearance) No Abnormality -Color (Earlene-wound Skin Appearance) No Abnormality, Hemosiderin Assessed Staining -Temperature (Earlene-wound Skin No Abnormality No Abnormality Appearance) (Pt Warm) (Pt Warm) -Tenderness on Palpation (Earlene-wound Yes No Skin Appearance) -Ulcer Cleansing soap and water Wound Cleanser Rinsed/ Irrigated with Saline -Foul Odor after Cleansing No -Anesthetic Used 5% Lidocaine 4% Lidocaine Gel Solution Right Calf (cm) 47.5 45.2 Right Ankle (cm) 22.2 27.5 Point of Measurement (cm from the medial instep) 07/15/21 07/18/21 07/22/21 07:58 08:06 09:27 Wound Center Nurse 1 #2 RLE Med Ankle -Current Size (cm) - Length -Current Size (cm) - Width -Current Size (cm) - Depth -Total Square Cm -Photo Taken -Exudate Amt -Exudate Type -Wound Margin -Granulation Amt -Necrosis Amt -Necrotic Tissue Type -Structure Exposed -Texture (Earlene-wound Skin Appearance) -Moisture (Earlene-wound Skin Appearance) -Color (Earlene-wound Skin Appearance) -Temperature (Earlene-wound Skin Appearance) -Tenderness on Palpation (Earlene-wound Skin Appearance) -Ulcer Cleansing -Foul Odor after Cleansing -Anesthetic Used #1 RLE Cluster -Combined with other wound -Current Size (cm) - Length 2 0.8 -Current Size (cm) - Width 2.1 0.8 -Current Size (cm) - Depth 0.1 0.1 -Total Square Cm 4.2 0.64 -Photo Taken No No -Tunneling No -Undermining/Tunneling No -Circular Undermining No -Change in Wound Grade/Stage No -Exudate Amt None Present None Present -Exudate Type Serosanguineous -Wound Margin Distinct, Flat & Intact Distinct, Outline Outline Attached Attached -Granulation Amt Medium (34-66%) Large (67-100%) -Granulation Quality [place] Patent [place] Patent Hyper- granulation -Necrosis Amt Small (1-33%) Small (1-33%) None Present (0 %) -Necrotic Tissue Type Adherent Slough Adherent Slough -Structure Exposed N/A N/A -Texture (Earlene-wound Skin Appearance) Assessed, Scarring Assessed, Scarring Scarring -Moisture (Earlene-wound Skin Appearance) No Abnormality, Assessed,Dry/ Assessed Scaly -Color (Earlene-wound Skin Appearance) Assessed, No Abnormality, No Abnormality, Hemosiderin Hemosiderin Assessed Staining Staining -Temperature (Earlene-wound Skin No Abnormality No Abnormality No Abnormality Appearance) (Pt Warm) (Pt Warm) (Pt Warm) -Tenderness on Palpation (Earlene-wound No No No Skin Appearance) -Ulcer Cleansing Rinsed/ Wound Cleanser Rinsed/ Irrigated with Irrigated with Saline Saline -Foul Odor after Cleansing No No -Anesthetic Used 5% Lidocaine 5% Lidocaine Gel Gel Right Calf (cm) 47 47.4 45.3 Right Ankle (cm) 29.5 29.1 Point of Measurement (cm from the medial 29.5 instep) WC - Nurse 2 - General Ulcer CM Notes Start: 07/01/21 08:16 Freq: Status: Active Protocol: Activity Type Activity Date Activity User E-Sign Co-Sign Detail Recorded Client Recorded Date Recorded By Document 07/01/21 11:57 PL [id number] 07/01/21 11:57 PL Document 07/08/21 12:49 PL [id number] 07/08/21 12:53 PL Document 07/15/21 12:02 PL [id number] 07/15/21 12:03 PL Document 07/22/21 11:54 PL [id number] 07/22/21 11:56 PL 07/01/21 07/08/21 07/15/21 11:57 12:49 12:02 Wound Center Nurse 2 #1 [facility] Cluster -Time 08:35 09:38 08:11 -Correct Patient Yes Yes Yes -Correct Side, Site, Position Yes Yes Yes -Correct Procedure Yes Yes Yes -Procedure Performed Yes Yes Yes -Type of Procedure Debridement Debridement Debridement -Clinical Debridement Subcutaneous Subcutaneous Subcutaneous -Tissue Removed Subcutaneous Subcutaneous Subcutaneous -Post Debridement (cm) - Length 2.0 2.6 2.0 -Post Debridement (cm) - Width 2.4 2.1 2.1 -Post Debridement (cm) - Depth 0.4 0.1 0.1 -Total Square (Post) (cm) 4.80 5.46 4.20 -Area of Debridement (cm) - Length 2.0 2.6 2.0 -Area of Debridement (cm) - Width 2.4 2.1 2.1 -Total Square (Area) (cm) 4.80 5.46 4.20 -Tunneling No No No -Undermining/Tunneling No No No -Circular Undermining No No No -Wound/Ulcer Outcome Not Healed Not Healed Not Healed -Ulcer Cleansing Rinsed/ Rinsed/ Rinsed/ Irrigated with Irrigated with Irrigated with Saline Saline Saline -Foul Odor after Cleansing No No No -Bioengineered Tissue No No No -Bleeding Controlled with Pressure Pressure -Treatment Response Procedure Procedure Tolerated Well Tolerated Well -Debridement - Subq, 1st 20sq cm Yes Yes Yes 07/22/21 11:54 Wound Center Nurse 2 #1 [facility] Cluster -Time 11:54 -Correct Patient Yes -Correct Side, Site, Position Yes -Correct Procedure Yes -Procedure Performed Yes -Type of Procedure Debridement -Clinical Debridement Subcutaneous -Tissue Removed Subcutaneous -Post Debridement (cm) - Length 1.1 -Post Debridement (cm) - Width 0.8 -Post Debridement (cm) - Depth 0.2 -Total Square (Post) (cm) 0.88 -Area of Debridement (cm) - Length 1.1 -Area of Debridement (cm) - Width 0.8 -Total Square (Area) (cm) 0.88 -Tunneling No -Undermining/Tunneling No -Circular Undermining No -Wound/Ulcer Outcome Not Healed -Ulcer Cleansing Rinsed/ Irrigated with Saline -Foul Odor after Cleansing No -Bioengineered Tissue No -Bleeding Controlled with Pressure -Treatment Response Procedure Tolerated Well -Debridement - Subq, 1st 20sq cm Yes WC - Nurse 3 - General Ulcer D/C NN Start: 07/01/21 08:16 Freq: Status: Active Protocol: Activity Type Activity Date Activity User E-Sign Co-Sign Detail Recorded Client Recorded Date Recorded By Document 07/01/21 08:50 KR [id number] 07/01/21 08:51 KR Document 07/08/21 09:57 KR [id number] 07/08/21 09:58 KR Document 07/11/21 08:02 AK Desktop 07/11/21 08:05 AK Document 07/15/21 08:27 AK [id number] 07/15/21 08:28 AK Document 07/18/21 08:18 DL [id number] 07/18/21 08:19 DL Document 07/22/21 09:51 BMF [id number] 07/22/21 09:52 BMF 07/01/21 07/08/21 07/11/21 08:50 09:57 08:02 Wound Care Nurse 3 #2 RLE Med Ankle -Ulcer Cleansing Rinsed/ Irrigated with Saline -Primary Dressing Applied Promogran -Primary Dressing Covered/Secured with Dry Gauze -Promogran 1 #1 RLE Cluster -Ulcer Cleansing Rinsed/ Rinsed/ Irrigated with Irrigated with Saline Saline -Foul Odor after Cleansing -Negative Pressure Wound Therapy -Primary Dressing Applied Promogran Promogran -Other Dressing -Primary Dressing Covered/Secured with Dry Gauze, Dry Gauze Secured with Tape -Promogran 1 0 Right -Lotion applied to leg before No compression wrap -Multi-Layered Wrap Application Unna Boot - Unna Boot - Unna Boot - Right ($) Right ($) Right ($) -Compression Wrap Treatment Response Vital Signs Temperature (97.8 F-99.1 F) 97.2 F L Temperature Source Temporal Pulse Rate (60-100) 60 Pulse Location Monitor Blood Pressure (90/60-120/80) 145/74 H Blood Pressure Mean 97 Source Monitor Pain Scale: 0-10 Numeric Is Patient Pain Free? Yes Yes WC - Visit Discharge Discharge Condition Stable Stable Stable Ambulatory Status Ambulatory Ambulatory Ambulatory Transportation [facility] [employer] Clinical Summary of Care Provided Yes 07/15/21 07/18/21 07/22/21 08:27 08:18 09:51 Wound Care Nurse 3 #2 RLE Med Ankle -Ulcer Cleansing -Primary Dressing Applied -Primary Dressing Covered/Secured with -Promogran #1 RLE Cluster -Ulcer Cleansing Rinsed/ Wound Cleanser Rinsed/ Irrigated with Irrigated with Saline Saline -Foul Odor after Cleansing No No No -Negative Pressure Wound Therapy N/A -Primary Dressing Applied Promogran Other -Other Dressing promogran promogran -Primary Dressing Covered/Secured with Dry Gauze, Dry Gauze Secured with Tape -Promogran 0 Right -Lotion applied to leg before No compression wrap -Multi-Layered Wrap Application Unna Boot - Unna Boot - Unna Boot - Right ($) Right ($) Right ($) -Compression Wrap Unna Boot ($) ( single) Treatment Response Procedure Procedure Tolerated Well Tolerated Well Vital Signs Temperature (97.8 F-99.1 F) Temperature Source Pulse Rate (60-100) Pulse Location Blood Pressure (90/60-120/80) Blood Pressure Mean Source Pain Scale: 0-10 Numeric Is Patient Pain Free? Yes Yes WC - Visit Discharge Discharge Condition Stable Stable Ambulatory Status Ambulatory Ambulatory Transportation [facility] [employer] Clinical Summary of Care Provided Wound debrided: Right anterolateral calf Laterality: Right Type of Debridement: Excisional debridement Anesthesia Used: 5% Lidocaine Gel Depth: Down to and including healthy tissue and in the subcutaneous layer Percentage of wound debrided: 100 Instrument Used: 5mm curette Tissue Removed: Bioburden Severity: Fat Layer Exposed Bleeding Controlled with: Compression and gauze Patient tolerated procedure: Patient tolerated procedure well Assessment/Plan Assessment/Plan (1) Venous stasis ulcer: CODE(S): I83.009 - Varicose veins of unspecified lower extremity with ulcer of unspecified site; L97.909 - Non-pressure chronic ulcer of unspecified part of unspecified lower leg with unspecified severity QUALIFIERS: Venous stasis ulcer site: calf Varicose vein presence: without varicose veins Laterality: right Non-pressure ulcer stage: limited to breakdown of skin Qualified Code(s): I87.2 - Venous insufficiency (chronic) (peripheral); L97.211 - Non-pressure chronic ulcer of right calf limited to breakdown of skin (2) Venous hypertension, chronic, with ulcer and inflammation: CODE(S): I87.339 - Chronic venous hypertension (idiopathic) with ulcer and inflammation of unspecified lower extremity; L97.909 - Non-pressure chronic ulcer of unspecified part of unspecified lower leg with unspecified severity QUALIFIERS: Laterality: right Qualified Code(s): I87.331 - Chronic venous hypertension (idiopathic) with ulcer and inflammation of right lower extremity; L97.919 - Non-pressure chronic ulcer of unspecified part of right lower leg with unspecified severity (3) Chronic venous insufficiency: CODE(S): I87.2 - Venous insufficiency (chronic) (peripheral) (4) Venous hypertension, chronic, with inflammation: CODE(S): I87.329 - Chronic venous hypertension (idiopathic) with inflamma tion of unspecified lower extremity (5) Leg swelling: CODE(S): M79.89 - Other specified soft tissue disorders (6) Leg pain: CODE(S): M79.606 - Pain in leg, unspecified QUALIFIERS: Laterality: bilateral Qualified Code(s): M79.604 - Pain in right leg; M79.605 - Pain in left leg (7) Hyperlipidemia: CODE(S): E78.5 - Hyperlipidemia, unspecified (8) Hypertension: CODE(S): I10 - Essential (primary) hypertension (9) Lipodermatosclerosis: CODE(S): I83.10 - Varicose veins of unspecified lower extremity with inflammation QUALIFIERS: Laterality: bilateral Qualified Code(s): I83.11 - Varicose veins of right lower extremity with inflammation; I83.12 - Varicose veins of left lower extremity with inflammation (10) Hyperpigmentation: CODE(S): L81.9 - Disorder of pigmentation, unspecified (11) Morbid obesity: CODE(S): E66.01 - Morbid (severe) obesity due to excess calories (12) H/O umbilical hernia repair: CODE(S): Z98.890 - Other specified postprocedural states; Z87.19 - Personal history of other diseases of the digestive system PLAN: This is a 51-year-old male with a longstanding history of chronic venous insufficiency, venous hypertension with inflammation, leg pain, and leg swelling in his lower extremities. He presented with an ulceration in the right lower extremity, which is recurrent. He has had prior ulcerations in the past. 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 He is morbidly obese. We are to implement a regimen of conservative treatment measures, which is to include leg elevation, avoidance of idle standing and sitting, active lifestyle, etc. Compression is to be continued to the right lower extremity by means of an Unna boot, applied twice weekly. Promogran will be applied each time to the ulceration topically. He is to wear his current compression stocking to the left lower extremity daily. The patient has been advised that leg elevation should be to heart level, or higher, as much as possible. Weight loss has been recommended. The patient is to return in 1 week for reassessment. A venous duplex examination was recently performed, which revealed incompetence of the right great saphenous vein, the right small saphenous vein, and the right accessory saphenous vein in the distal thigh. We have briefly discussed the potential role of endovenous laser ablation of the incompetent superficial veins in the right lower extremity, a matter which may be considered in more detail in the future, depending on the patient's clinical course henceforth. Ultimately, the patient will transition to graduated compression stockings of at least 20 to 30 mmHg compression, to be worn long-term. Total time 28 minutes.
[2021-07-25 08:20] VITALS: BP 143/60; PULSE 72; TEMP 36.3; BMI 48.7
[2021-07-29 08:17] VITALS: BP 137/68; PULSE 63; TEMP 36.2; BMI 48.7
--- NOTE | 2021-07-29 08:26 | PCM.WC.HP ---
History of Present Illness Date of Service: 07/29/21 Chief Complaint: Venous stasis ulceration, right pretibial area History of Wound: This is a 51-year-old male with a longstanding history of chronic venous disease. He presented with a superficial venous stasis ulceration on the right pretibial area. It has been present for only 1 to 2 weeks. He has had ulcerations and cellulitis in this area in the past. He had been using Xeroform topically, and was referred by his nurse practitioner in [place], [place]. The patient is morbidly obese. He denies a history of deep vein thrombosis in the past. He claims to sleep on a flat mattress at night. 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 He possesses compression stockings, which were obtained [id number], and has been noncompliant with their use. He experiences pain and swelling in his lower extremities, which has been chronic. [facility] Medical History Chronic venous insufficiency Hyperlipidemia Hyperpigmentation Hypertension Leg pain Leg swelling Lipodermatosclerosis Morbid obesity Venous hypertension, chronic, with inflammation Venous hypertension, chronic, with ulcer and inflammation Venous stasis ulcer Home Medications furosemide 40 mg PO BID 06/24/21 [History Last Taken Unknown] lansoprazole 30 mg PO DAILY 06/24/21 [History Last Taken Unknown] losartan 100 mg PO DAILY 06/24/21 [History Last Taken Unknown] pravastatin 10 mg PO DAILY 06/24/21 [History Last Taken Unknown] Surgical History H/O umbilical hernia repair Social History 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 Smoking Status: Never smoker details: The patient denies use of alcohol Vital Signs Vital Signs Vital Signs: 07/29/21 08:17 Temperature 97.1 F L Temperature Source Temporal Pulse Rate 63 Blood Pressure 137/68 H Blood Pressure Mean 91 Blood Pressure Source Monitor Weight Weight: 330 lb Body Mass Index (BMI) 48.7 Physical Exam Const alert, oriented x3, no apparent distress and well nourished General Appearance: cooperative, comfortable and well developed Orientation / Consciousness: awake, oriented to person, oriented to place and oriented to time HEENT normocephalic and head/scalp atraumatic Head and Scalp: normal to inspection, normocephalic and atraumatic External Ear: external ears normal Eyes PERRL and EOMs intact bilaterally General Eye: normal appearance of both eyes Resp normal respiratory effort, normal air movement, no retractions and no use of accessory muscles Effort and Inspection: able to speak in complete sentences Extremity no calf tenderness Extremity Narrative: Slight swelling and edema noted in the patient's right lower extremity. Chronic hyperpigmentation is noted in the gaiter area of the right lower extremity. The venous ulceration on the anterolateral aspect of the right calf persists, though appears to be smaller in size. Dimensions are documented elsewhere. There is no sign of infection or cellulitis. There is a moderate amount of bioburden. General Extremity: Negative for clubbing or cyanosis Skin Wound Narrative: As above. The venous ulcer on the anterolateral aspect of the right calf persists. It is smaller in size. Dimensions are documented elsewhere. There is no sign of infection or cellulitis. There is a moderate amount of bioburden. Neuro oriented x3, CN's II-XII intact bilaterally and moves all extremities Sensorium / Orientation: awake, alert, oriented to person, oriented to place and oriented to time Psych Appearance: grossly normal and appropriate Attitude: calm Activity / Motor Behavior: appropriate eye contact Speech: normal speech Mood & Affect: euthymic mood Thought Process: normal thought process Thought Content: normal thought content Attention / Concentration: attention grossly intact Debridement Note Debridement Note Post-Debridement Measurements and Additional Note: Post-Debridement Measurements/Treatment WC - Nurse 1 - General Ulcer Assessment Start: 07/01/21 08:16 Freq: Status: Active Protocol: ELVER.LOWYUET Activity Type Activity Date Activity User E-Sign Co-Sign Detail Recorded Client Recorded Date Recorded By Document 07/01/21 08:16 AK [id number] 07/01/21 08:28 AK Document 07/08/21 09:05 DL [id number] 07/08/21 09:17 DL Document 07/11/21 08:02 AK Desktop 07/11/21 08:05 AK Document 07/15/21 07:58 AK [id number] 07/15/21 08:04 AK Document 07/18/21 08:06 DL [id number] 07/18/21 08:18 DL Document 07/22/21 09:27 KR [id number] 07/22/21 09:31 KR Document 07/25/21 08:20 KR [id number] 07/25/21 08:22 KR Document 07/29/21 08:17 AK [id number] 07/29/21 08:19 AK 07/01/21 07/08/21 07/11/21 08:16 09:05 08:02 WC - Today's Visit Information Type of service Follow-up Visit Follow-up Visit Nurse-only (Physician/CHIEF ENTERPRISE ARCHITECT (Physician/CHIEF ENTERPRISE ARCHITECT Visit ) ) Arrival Mode Ambulatory Ambulatory Ambulatory Transfer Assistance None Patient Identification Verified (Name & Yes Yes ) Patient Requires Transmission-Based No Precautions Height and Weight Body Mass Index (BMI) 48.7 48.7 48.7 BMI Classification Obese Obese Obese Vital Signs Temperature (97.8 F-99.1 F) 97.4 F L 97.8 F 97.2 F L Temperature Source Temporal Temporal Temporal Pulse Rate (60-100) 100 59 L 60 Pulse Location Monitor Monitor Monitor Respiratory Rate (12-18) 20 H Respiratory rate source Observation Blood Pressure (90/60-120/80) 145/78 H 140/64 H 145/74 H Blood Pressure Mean 100 89 97 Source Monitor Monitor Monitor Position Blood Pressure Location History Since Last Visit- (Skip if this is Patient's initial visit) Have you changed medications since your No No No last visit? Any new allergies or adverse reactions No No No Had a fall/change in ADL's that may No No No increase risk of falls Signs or symptoms of abuse and/or No No No neglect since last visit Have you been in the hospital since your No No No last visit? Has dressing in place as prescribed Yes Yes Yes Has compression in place as prescribed No Yes Yes Has offloadiing in place as prescribed N/A N/A N/A Experienced any changes in pain level or No No management Left Footwear Regular Shoe Regular Shoe Right Footwear Regular Shoe Regular Shoe Pain Scale: 0-10 Numeric Is Patient Pain Free? Yes 07/15/21 07/18/21 07/22/21 07:58 08:06 09:27 WC - Today's Visit Information Type of service Follow-up Visit Nurse-only Follow-up Visit (Physician/CHIEF ENTERPRISE ARCHITECT Visit (Physician/CHIEF ENTERPRISE ARCHITECT ) ) Arrival Mode Ambulatory Ambulatory Ambulatory Transfer Assistance None Patient Identification Verified (Name & Yes Yes Yes ) Patient Requires Transmission-Based No Precautions Height and Weight Body Mass Index (BMI) 48.7 48.7 48.7 BMI Classification Obese Obese Obese Vital Signs Temperature (97.8 F-99.1 F) 97.7 F L 97.7 F L 96.9 F L Temperature Source Temporal Temporal Temporal Pulse Rate (60-100) 56 L 54 L 65 Pulse Location Monitor Monitor Monitor Respiratory Rate (12-18) 22 H Respiratory rate source Observation Blood Pressure (90/60-120/80) 138/69 H 141/74 H 155/70 H Blood Pressure Mean 92 96 98 Source Monitor Monitor Monitor Position Semi-Fowlers Blood Pressure Location Right Arm History Since Last Visit- (Skip if this is Patient's initial visit) Have you changed medications since your No No No last visit? Any new allergies or adverse reactions No No No Had a fall/change in ADL's that may No No No increase risk of falls Signs or symptoms of abuse and/or No No No neglect since last visit Have you been in the hospital since your No No No last visit? Has dressing in place as prescribed Yes Yes Yes Has compression in place as prescribed Yes No Yes Has offloadiing in place as prescribed Yes N/A N/A Experienced any changes in pain level or No No management Left Footwear Regular Shoe Regular Shoe Right Footwear Regular Shoe Regular Shoe Pain Scale: 0-10 Numeric Is Patient Pain Free? Yes Yes 07/25/21 07/29/21 08:20 08:17 WC - Today's Visit Information Type of service Nurse-only Follow-up Visit Visit (Physician/CHIEF ENTERPRISE ARCHITECT ) Arrival Mode Ambulatory Ambulatory Transfer Assistance Patient Identification Verified (Name & Yes Yes ) Patient Requires Transmission-Based No Precautions Height and Weight Body Mass Index (BMI) 48.7 48.7 BMI Classification Obese Obese Vital Signs Temperature (97.8 F-99.1 F) 97.3 F L 97.1 F L Temperature Source Temporal Temporal Pulse Rate (60-100) 72 63 Pulse Location Monitor Monitor Respiratory Rate (12-18) Respiratory rate source Blood Pressure (90/60-120/80) 143/60 H 137/68 H Blood Pressure Mean 87 91 Source Monitor Monitor Position Semi-Fowlers Blood Pressure Location Right Arm History Since Last Visit- (Skip if this is Patient's initial visit) Have you changed medications since your No No last visit? Any new allergies or adverse reactions No No Had a fall/change in ADL's that may No No increase risk of falls Signs or symptoms of abuse and/or No No neglect since last visit Have you been in the hospital since your No No last visit? Has dressing in place as prescribed Yes Yes Has compression in place as prescribed Yes Yes Has offloadiing in place as prescribed N/A N/A Experienced any changes in pain level or No No management Left Footwear Regular Shoe Regular Shoe Right Footwear Regular Shoe Regular Shoe Pain Scale: 0-10 Numeric Is Patient Pain Free? Yes WC - Nurse 1 - General Ulcer Measurement Start: 07/01/21 08:16 Freq: Status: Active Protocol: Activity Type Activity Date Activity User E-Sign Co-Sign Detail Recorded Client Recorded Date Recorded By Document 07/01/21 08:16 AK [id number] 07/01/21 08:28 AK Document 07/08/21 09:05 DL [id number] 07/08/21 09:17 DL Document 07/11/21 08:02 AK Desktop 07/11/21 08:05 AK Document 07/15/21 07:58 AK [id number] 07/15/21 08:04 AK Document 07/18/21 08:06 DL [id number] 07/18/21 08:18 DL Document 07/22/21 09:27 KR [id number] 07/22/21 09:31 KR Document 07/25/21 08:20 KR [id number] 07/25/21 08:22 KR Document 07/29/21 08:17 AK [id number] 07/29/21 08:19 AK 07/01/21 07/08/21 07/11/21 08:16 09:05 08:02 Wound Center Nurse 1 #2 RLE Med Ankle -Current Size (cm) - Length 0.3 -Current Size (cm) - Width 0.3 -Current Size (cm) - Depth 0.1 -Total Square Cm 0.09 -Photo Taken No -Exudate Amt Small -Exudate Type Serosanguineous -Wound Margin Distinct, Outline Attached -Granulation Amt None Present (0 %) -Necrosis Amt Large (67-100%) -Necrotic Tissue Type Adherent Slough -Structure Exposed N/A -Texture (Earlene-wound Skin Appearance) Scarring -Moisture (Earlene-wound Skin Appearance) No Abnormality -Color (Earlene-wound Skin Appearance) Hemosiderin Staining -Temperature (Earlene-wound Skin No Abnormality Appearance) (Pt Warm) -Tenderness on Palpation (Earlene-wound No Skin Appearance) -Ulcer Cleansing Wound Cleanser -Foul Odor after Cleansing No -Anesthetic Used 4% Lidocaine Solution #1 RLE Cluster -Combined with other wound No -Current Size (cm) - Length 2 2.6 -Current Size (cm) - Width 2.4 2.1 -Current Size (cm) - Depth 0.1 0.1 -Total Square Cm 4.8 5.46 -Photo Taken No -Tunneling No -Undermining/Tunneling No -Circular Undermining No -Change in Wound Grade/Stage No -Exudate Amt None Present Medium -Exudate Type Serosanguineous -Wound Margin Distinct, Distinct, Outline Outline Attached Attached -Granulation Amt Small (1-33%) Medium (34-66%) -Granulation Quality Red -Slough/Fibrin -Necrosis Amt Small (1-33%) Medium (34-66%) -Necrotic Tissue Type Eschar Adherent Slough -Structure Exposed N/A -Texture (Earlene-wound Skin Appearance) No Abnormality, Scarring Assessed -Moisture (Earlene-wound Skin Appearance) No Abnormality -Color (Earlene-wound Skin Appearance) No Abnormality, Hemosiderin Assessed Staining -Temperature (Earlene-wound Skin No Abnormality No Abnormality Appearance) (Pt Warm) (Pt Warm) -Tenderness on Palpation (Earlene-wound Yes No Skin Appearance) -Ulcer Cleansing soap and water Wound Cleanser Rinsed/ Irrigated with Saline -Foul Odor after Cleansing No -Anesthetic Used 5% Lidocaine 4% Lidocaine Gel Solution Right Calf (cm) 47.5 45.2 Right Ankle (cm) 22.2 27.5 Point of Measurement (cm from the medial instep) 07/15/21 07/18/21 07/22/21 07:58 08:06 09:27 Wound Center Nurse 1 #2 RLE Med Ankle -Current Size (cm) - Length -Current Size (cm) - Width -Current Size (cm) - Depth -Total Square Cm -Photo Taken -Exudate Amt -Exudate Type -Wound Margin -Granulation Amt -Necrosis Amt -Necrotic Tissue Type -Structure Exposed -Texture (Earlene-wound Skin Appearance) -Moisture (Earlene-wound Skin Appearance) -Color (Earlene-wound Skin Appearance) -Temperature (Earlene-wound Skin Appearance) -Tenderness on Palpation (Earlene-wound Skin Appearance) -Ulcer Cleansing -Foul Odor after Cleansing -Anesthetic Used #1 RLE Cluster -Combined with other wound -Current Size (cm) - Length 2 0.8 -Current Size (cm) - Width 2.1 0.8 -Current Size (cm) - Depth 0.1 0.1 -Total Square Cm 4.2 0.64 -Photo Taken No No -Tunneling No -Undermining/Tunneling No -Circular Undermining No -Change in Wound Grade/Stage No -Exudate Amt None Present None Present -Exudate Type Serosanguineous -Wound Margin Distinct, Flat & Intact Distinct, Outline Outline Attached Attached -Granulation Amt Medium (34-66%) Large (67-100%) -Granulation Quality [place] Hyper- granulation -Slough/Fibrin -Necrosis Amt Small (1-33%) Small (1-33%) None Present (0 %) -Necrotic Tissue Type Adherent Slough Adherent Slough -Structure Exposed N/A N/A -Texture (Earlene-wound Skin Appearance) Assessed, Scarring Assessed, Scarring Scarring -Moisture (Earlene-wound Skin Appearance) No Abnormality, Assessed,Dry/ Assessed Scaly -Color (Earlene-wound Skin Appearance) Assessed, No Abnormality, No Abnormality, Hemosiderin Hemosiderin Assessed Staining Staining -Temperature (Earlene-wound Skin No Abnormality No Abnormality No Abnormality Appearance) (Pt Warm) (Pt Warm) (Pt Warm) -Tenderness on Palpation (Earlene-wound No No No Skin Appearance) -Ulcer Cleansing Rinsed/ Wound Cleanser Rinsed/ Irrigated with Irrigated with Saline Saline -Foul Odor after Cleansing No No -Anesthetic Used 5% Lidocaine 5% Lidocaine Gel Gel Right Calf (cm) 47 47.4 45.3 Right Ankle (cm) 29.5 29.1 Point of Measurement (cm from the medial 29.5 instep) 07/25/21 07/29/21 08:20 08:17 Wound Center Nurse 1 #2 RLE Med Ankle -Current Size (cm) - Length -Current Size (cm) - Width -Current Size (cm) - Depth -Total Square Cm -Photo Taken -Exudate Amt -Exudate Type -Wound Margin -Granulation Amt -Necrosis Amt -Necrotic Tissue Type -Structure Exposed -Texture (Earlene-wound Skin Appearance) -Moisture (Earlene-wound Skin Appearance) -Color (Earlene-wound Skin Appearance) -Temperature (Earlene-wound Skin Appearance) -Tenderness on Palpation (Earlene-wound Skin Appearance) -Ulcer Cleansing -Foul Odor after Cleansing -Anesthetic Used #1 RLE Cluster -Combined with other wound -Current Size (cm) - Length 0.2 0.6 -Current Size (cm) - Width 0.2 0.4 -Current Size (cm) - Depth 0.1 0.1 -Total Square Cm 0.04 0.24 -Photo Taken No -Tunneling No -Undermining/Tunneling No -Circular Undermining No -Change in Wound Grade/Stage -Exudate Amt None Present -Exudate Type -Wound Margin Distinct, Outline Attached -Granulation Amt None Present (0 None Present (0 %) %) -Granulation Quality -Slough/Fibrin No -Necrosis Amt None Present (0 %) -Necrotic Tissue Type -Structure Exposed -Texture (Earlene-wound Skin Appearance) Assessed, No Abnormality, Scarring Assessed -Moisture (Earlene-wound Skin Appearance) Assessed,Dry/ No Abnormality, Scaly Assessed -Color (Earlene-wound Skin Appearance) No Abnormality, Assessed, Assessed Hemosiderin Staining -Temperature (Earlene-wound Skin No Abnormality No Abnormality Appearance) (Pt Warm) (Pt Warm) -Tenderness on Palpation (Earlene-wound No No Skin Appearance) -Ulcer Cleansing soap and water Rinsed/ Irrigated with Saline -Foul Odor after Cleansing -Anesthetic Used 5% Lidocaine Gel Right Calf (cm) 46.7 45.4 Right Ankle (cm) 29.2 28.2 Point of Measurement (cm from the medial instep) WC - Nurse 2 - General Ulcer CM Notes Start: 07/01/21 08:16 Freq: Status: Active Protocol: Activity Type Activity Date Activity User E-Sign Co-Sign Detail Recorded Client Recorded Date Recorded By Document 07/01/21 11:57 PL [id number] 07/01/21 11:57 PL Document 07/08/21 12:49 PL [id number] 07/08/21 12:53 PL Document 07/15/21 12:02 PL [id number] 08/17/21 12:03 PL Document 07/22/21 11:54 PL [id number] 07/22/21 11:56 PL 07/01/21 07/08/21 07/15/21 11:57 12:49 12:02 Wound Center Nurse 2 #1 [facility] Cluster -Time 08:35 09:38 08:11 -Correct Patient Yes Yes Yes -Correct Side, Site, Position Yes Yes Yes -Correct Procedure Yes Yes Yes -Procedure Performed Yes Yes Yes -Type of Procedure Debridement Debridement Debridement -Clinical Debridement Subcutaneous Subcutaneous Subcutaneous -Tissue Removed Subcutaneous Subcutaneous Subcutaneous -Post Debridement (cm) - Length 2.0 2.6 2.0 -Post Debridement (cm) - Width 2.4 2.1 2.1 -Post Debridement (cm) - Depth 0.4 0.1 0.1 -Total Square (Post) (cm) 4.80 5.46 4.20 -Area of Debridement (cm) - Length 2.0 2.6 2.0 -Area of Debridement (cm) - Width 2.4 2.1 2.1 -Total Square (Area) (cm) 4.80 5.46 4.20 -Tunneling No No No -Undermining/Tunneling No No No -Circular Undermining No No No -Wound/Ulcer Outcome Not Healed Not Healed Not Healed -Ulcer Cleansing Rinsed/ Rinsed/ Rinsed/ Irrigated with Irrigated with Irrigated with Saline Saline Saline -Foul Odor after Cleansing No No No -Bioengineered Tissue No No No -Bleeding Controlled with Pressure Pressure -Treatment Response Procedure Procedure Tolerated Well Tolerated Well -Debridement - Subq, 1st 20sq cm Yes Yes Yes 07/22/21 11:54 Wound Center Nurse 2 #1 [facility] Cluster -Time 11:54 -Correct Patient Yes -Correct Side, Site, Position Yes -Correct Procedure Yes -Procedure Performed Yes -Type of Procedure Debridement -Clinical Debridement Subcutaneous -Tissue Removed Subcutaneous -Post Debridement (cm) - Length 1.1 -Post Debridement (cm) - Width 0.8 -Post Debridement (cm) - Depth 0.2 -Total Square (Post) (cm) 0.88 -Area of Debridement (cm) - Length 1.1 -Area of Debridement (cm) - Width 0.8 -Total Square (Area) (cm) 0.88 -Tunneling No -Undermining/Tunneling No -Circular Undermining No -Wound/Ulcer Outcome Not Healed -Ulcer Cleansing Rinsed/ Irrigated with Saline -Foul Odor after Cleansing No -Bioengineered Tissue No -Bleeding Controlled with Pressure -Treatment Response Procedure Tolerated Well -Debridement - Subq, 1st 20sq cm Yes WC - Nurse 3 - General Ulcer D/C NN Start: 07/01/21 08:16 Freq: Status: Active Protocol: Activity Type Activity Date Activity User E-Sign Co-Sign Detail Recorded Client Recorded Date Recorded By Document 07/01/21 08:50 KR [id number] 07/01/21 08:51 KR Document 07/08/21 09:57 KR [id number] 07/08/21 09:58 KR Document 07/11/21 08:02 AK Desktop 07/11/21 08:05 AK Document 07/15/21 08:27 AK [id number] 07/15/21 08:28 AK Document 07/18/21 08:18 DL [id number] 07/18/21 08:19 DL Document 07/22/21 09:51 BMF [id number] 07/22/21 09:52 BMF Document 07/25/21 08:20 KR [id number] 07/25/21 08:22 KR 07/01/21 07/08/21 07/11/21 08:50 09:57 08:02 Wound Care Nurse 3 #2 RLE Med Ankle -Ulcer Cleansing Rinsed/ Irrigated with Saline -Primary Dressing Applied Promogran -Primary Dressing Covered/Secured with Dry Gauze -Promogran 1 #1 RLE Cluster -Ulcer Cleansing Rinsed/ Rinsed/ Irrigated with Irrigated with Saline Saline -Foul Odor after Cleansing -Negative Pressure Wound Therapy -Primary Dressing Applied Promogran Promogran -Other Dressing -Primary Dressing Covered/Secured with Dry Gauze, Dry Gauze Secured with Tape -Promogran 1 0 Right -Lotion applied to leg before No compression wrap -Multi-Layered Wrap Application Unna Boot - Unna Boot - Unna Boot - Right ($) Right ($) Right ($) -Compression Wrap Treatment Response Vital Signs Temperature (97.8 F-99.1 F) 97.2 F L Temperature Source Temporal Pulse Rate (60-100) 60 Pulse Location Monitor Blood Pressure (90/60-120/80) 145/74 H Blood Pressure Mean 97 Source Monitor Position Blood Pressure Location Pain Scale: 0-10 Numeric Is Patient Pain Free? Yes Yes WC - Visit Discharge Discharge Condition Stable Stable Stable Ambulatory Status Ambulatory Ambulatory Ambulatory Transportation [facility] Clinical Summary of Care Provided Yes 07/15/21 07/18/21 07/22/21 08:27 08:18 09:51 Wound Care Nurse 3 #2 RLE Med Ankle -Ulcer Cleansing -Primary Dressing Applied -Primary Dressing Covered/Secured with -Promogran #1 RLE Cluster -Ulcer Cleansing Rinsed/ Wound Cleanser Rinsed/ Irrigated with Irrigated with Saline Saline -Foul Odor after Cleansing No No No -Negative Pressure Wound Therapy N/A -Primary Dressing Applied Promogran Other -Other Dressing promogran promogran -Primary Dressing Covered/Secured with Dry Gauze, Dry Gauze Secured with Tape -Promogran 0 Right -Lotion applied to leg before No compression wrap -Multi-Layered Wrap Application Unna Boot - Unna Boot - Unna Boot - Right ($) Right ($) Right ($) -Compression Wrap Unna Boot ($) ( single) Treatment Response Procedure Procedure Tolerated Well Tolerated Well Vital Signs Temperature (97.8 F-99.1 F) Temperature Source Pulse Rate (60-100) Pulse Location Blood Pressure (90/60-120/80) Blood Pressure Mean Source Position Blood Pressure Location Pain Scale: 0-10 Numeric Is Patient Pain Free? Yes Yes WC - Visit Discharge Discharge Condition Stable Stable Ambulatory Status Ambulatory Ambulatory Transportation [employer] Clinical Summary of Care Provided 07/25/21 08:20 Wound Care Nurse 3 #2 RLE Med Ankle -Ulcer Cleansing -Primary Dressing Applied -Primary Dressing Covered/Secured with -Promogran #1 RLE Cluster -Ulcer Cleansing -Foul Odor after Cleansing -Negative Pressure Wound Therapy -Primary Dressing Applied -Other Dressing -Primary Dressing Covered/Secured with -Promogran Right -Lotion applied to leg before compression wrap -Multi-Layered Wrap Application Unna Boot - Right ($) -Compression Wrap Unna Boot ($) ( single) Treatment Response Vital Signs Temperature (97.8 F-99.1 F) 97.3 F L Temperature Source Temporal Pulse Rate (60-100) 72 Pulse Location Monitor Blood Pressure (90/60-120/80) 143/60 H Blood Pressure Mean 87 Source Monitor Position Semi-Fowlers Blood Pressure Location Right Arm Pain Scale: 0-10 Numeric Is Patient Pain Free? Yes WC - Visit Discharge Discharge Condition Stable Ambulatory Status Ambulatory Transportation [employer] Clinical Summary of Care Provided Wound debrided: Anterolateral right calf Laterality: Right Type of Debridement: Excisional debridement Anesthesia Used: 5% Lidocaine Gel Depth: Down to and including healthy tissue and in the subcutaneous layer Percentage of wound debrided: 100 Instrument Used: 5mm curette Tissue Removed: Bioburden Severity: Fat Layer Exposed Amount of bleeding with debridement: Mild Bleeding Controlled with: Compression and gauze Patient tolerated procedure: Patient tolerated procedure well Assessment/Plan Assessment/Plan (1) Venous hypertension, chronic, with ulcer and inflammation: CODE(S): I87.339 - Chronic venous hypertension (idiopathic) with ulcer and inflammation of unspecified lower extremity; L97.909 - Non-pressure chronic ulcer of unspecified part of unspecified lower leg with unspecified severity QUALIFIERS: Laterality: right Qualified Code(s): I87.331 - Chronic venous hypertension (idiopathic) with ulcer and inflammation of right lower extremity; L97.919 - Non-pressure chronic ulcer of unspecified part of right lower leg with unspecified severity (2) Leg swelling: CODE(S): M79.89 - Other specified soft tissue disorders (3) Leg pain: CODE(S): M79.606 - Pain in leg, unspecified QUALIFIERS: Laterality: bilateral Qualified Code(s): M79.604 - Pain in right leg; M79.605 - Pain in left leg (4) Hyperlipidemia: CODE(S): E78.5 - Hyperlipidemia, unspecified (5) Hypertension: CODE(S): I10 - Essential (primary) hypertension (6) Lipodermatosclerosis: CODE(S): I83.10 - Varicose veins of unspecified lower extremity with inflammation QUALIFIERS: Laterality: bilateral Qualified Code(s): I83.11 - Varicose veins of right lower extremity with inflammation; I83.12 - Varicose veins of left lower extremity with inflammation (7) Hyperpigmentation: CODE(S): L81.9 - Disorder of pigmentation, unspecified (8) Morbid obesity: CODE(S): E66.01 - Morbid (severe) obesity due to excess calories (9) Venous stasis ulcer: CODE(S): I83.009 - Varicose veins of unspecified lower extremity with ulcer of unspecified site; L97.909 - Non-pressure chronic ulcer of unspecified part of unspecified lower leg with unspecified severity QUALIFIERS: Venous stasis ulcer site: calf Varicose vein presence: without varicose veins Laterality: right Non-pressure ulcer stage: limited to breakdown of skin Qualified Code(s): I87.2 - Venous insufficiency (chronic) (peripheral); L97.211 - Non-pressure chronic ulcer of right calf limited to breakdown of skin (10) Venous hypertension, chronic, with inflammation: CODE(S): I87.329 - Chronic venous hypertension (idiopathic) with inflammation of unspecified lower extremity (11) Chronic venous insufficiency: CODE(S): I87.2 - Venous insufficiency (chronic) (peripheral) (12) H/O umbilical hernia repair: CODE(S): Z98.890 - Other specified postprocedural states; Z87.19 - Personal history of other diseases of the digestive system PLAN: This is a 51-year-old male with a longstanding history of chronic venous insufficiency, venous hypertension with inflammation, leg pain, and leg swelling in his lower extremities. He presented with an ulceration in the right lower extremity, which is recurrent. He has had prior ulcerations in the past. 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 He is morbidly obese. We are to continue a regimen of conservative treatment measures, which is to include leg elevation, avoidance of idle standing and sitting, active lifestyle, etc. Compression is to be continued to the right lower extremity by means of an Unna boot, applied twice weekly. Promogran will be applied each time to the ulceration topically. He is to wear his current compression stocking to the left lower extremity daily. The patient has been advised that leg elevation should be to heart level, or higher, as much as possible. Weight loss has been recommended. The patient is to return in 1 week for reassessment. A venous duplex examination was recently performed, which revealed incompetence of the right great saphenous vein, the right small saphenous vein, and the right accessory saphenous vein in the distal thigh. We have briefly discussed the potential role of endovenous laser ablation of the incompetent superficial veins in the right lower extremity, a matter which may be considered in more detail in the future, depending on the patient's clinical course henceforth. Ultimately, the patient will transition to graduated compression stockings of at least 20 to 30 mmHg compression, to be worn long-term. Total time 29 minutes.
== END 2021-07-29 23:59 ==
LOC: WC 08:00
PROVIDERS: PCP Nurse Practitioner Family; Visit Provider Surgery
DX: I87.331 Chronic venous hypertension (idiopathic) with ulcer and inflammation of right lower extremity (principal); L97.212 Non-pressure chronic ulcer of right calf with fat layer exposed; M79.89 Other specified soft tissue disorders; E78.5 Hyperlipidemia, unspecified; I10 Essential (primary) hypertension; I83.12 Varicose veins of left lower extremity with inflammation; E66.01 Morbid (severe) obesity due to excess calories; Z91.19 Patient's noncompliance with other medical treatment and regimen; Z68.42 Body mass index [BMI] 45.0-49.9, adult
CPT/HCPCS: 11042; 29580; 93970

== ENCOUNTER 2021-08-26 08:00 | Outpatient (RCR) | payer BC, SELFPAY ==
[2021-07-30 00:41] VITALS: BP 137/68; PULSE 63; RESP 22; TEMP 36.2; BMI 48.7
[2021-08-01 08:53] VITALS: BP 145/69; PULSE 63; TEMP 36.4; BMI 48.7
[2021-08-05 08:50] VITALS: TEMP 36.6; BMI 48.7
[2021-08-12 08:07] VITALS: BP 138/73; PULSE 70; TEMP 36.4; BMI 48.7
--- NOTE | 2021-08-12 08:41 | HP.PCM_ITS ---
History of Present Illness Date of Service: 08/12/21 Chief Complaint: Venous stasis ulceration, right pretibial area History of Wound: This is a 51-year-old male with a longstanding history of chronic venous disease. He presented with a superficial venous stasis ulceration on the right pretibial area. It has been present for only 1 to 2 weeks. He has had ulcerations and cellulitis in this area in the past. He had been using Xeroform topically, and was referred by his nurse practitioner in [place], [place]. The patient is morbidly obese. He denies a history of deep vein thrombosis in the past. He claims to sleep on a flat mattress at night. 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 He possesses compression stockings, which were obtained [id number], and has been noncompliant with their use. He experiences pain and swelling in his lower extremities, which has been chronic. [facility] Medical History Chronic venous insufficiency Hyperlipidemia Hyperpigmentation Hypertension Leg pain Leg swelling Lipodermatosclerosis Morbid obesity Venous hypertension, chronic, with inflammation Venous hypertension, chronic, with ulcer and inflammation Venous stasis ulcer Home Medications furosemide 40 mg PO BID 06/24/21 [History Last Taken Unknown] lansoprazole 30 mg PO DAILY 06/24/21 [History Last Taken Unknown] losartan 100 mg PO DAILY 06/24/21 [History Last Taken Unknown] pravastatin 10 mg PO DAILY 06/24/21 [History Last Taken Unknown] Surgical History H/O umbilical hernia repair Social History 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 General Appearance: cooperative, comfortable and well developed Orientation / Consciousness: awake, oriented to person, oriented to place and oriented to time HEENT normocephalic and head/scalp atraumatic Head and Scalp: normal to inspection, normocephalic and atraumatic External Ear: external ears normal Eyes PERRL and EOMs intact bilaterally General Eye: normal appearance of both eyes Resp normal respiratory effort, normal air movement, no retractions and no use of accessory muscles Effort and Inspection: able to speak in complete sentences Extremity no clubbing, cyanosis or edema and no calf tenderness General Extremity: Negative for clubbing or cyanosis Skin Wound Narrative: The ulceration persists on the right pretibial region. It is smaller in size. There is a moderate amount of bioburden. There is no sign of infection or cellulitis. Dimensions are documented elsewhere. Neuro oriented x3, CN's II-XII intact bilaterally, moves all extremities and no focal motor deficits Sensorium / Orientation: awake, alert, oriented to person, oriented to place and oriented to time Psych Appearance: grossly normal and appropriate Attitude: calm Activity / Motor Behavior: appropriate eye contact Speech: normal speech Mood & Affect: euthymic mood Thought Process: normal thought process Thought Content: normal thought content Attention / Concentration: attention grossly intact Debridement Note Debridement Note Wound debrided: Right pretibial Laterality: Right Type of Debridement: Excisional debridement Anesthesia Used: 5% Lidocaine Gel Depth: Down to and including healthy tissue and in the subcutaneous layer Percentage of wound debrided: 100 Instrument Used: 5mm curette Tissue Removed: Bioburden Severity: Fat Layer Exposed Amount of bleeding with debridement: Mild Bleeding Controlled with: Compression and gauze Patient tolerated procedure: Patient tolerated procedure well Post-Debridement Measurements and Additional Note: Post-Debridement Measurements/Treatment ELVER - Nurse 1 - General Ulcer Assessment Start: 08/01/21 08:53 Freq: Status: Active Protocol: JUSTINE Activity Type Activity Date Activity User E-Sign Co-Sign Detail Recorded Client Recorded Date Recorded By Document 08/01/21 08:53 AK [id number] 08/01/21 08:55 AK Document 08/05/21 08:50 AK Desktop 08/05/21 08:52 AK Document 08/12/21 08:07 KR [id number] 08/12/21 08:08 KR 08/01/21 08/05/21 08/12/21 08:53 08:50 08:07 WC - Today's Visit Information Type of service Nurse-only Nurse-only Follow-up Visit 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 ) Arrival Mode Ambulatory Ambulatory Ambulatory Patient Identification Verified (Name & No Yes Yes ) Patient Requires Transmission-Based No No Precautions Safety Precautions NA Height and Weight Body Mass Index (BMI) 48.7 48.7 48.7 BMI Classification Obese Obese Obese Vital Signs Temperature (97.8 F-99.1 F) 97.6 F L 97.9 F 97.5 F L Temperature Source Temporal Temporal Temporal Pulse Rate (60-100) 63 70 Pulse Location Monitor Monitor Blood Pressure (90/60-120/80) 145/69 H 138/73 H Blood Pressure Mean 94 94 Source Monitor Monitor Position Sitting Blood Pressure Location Right Arm History Since Last Visit- (Skip if this is Patient's initial visit) Have you changed medications since your No No No last visit? Any new allergies or adverse reactions No No No Had a fall/change in ADL's that may No No No increase risk of falls Signs or symptoms of abuse and/or No No No neglect since last visit Have you been in the hospital since your No Yes No last visit? Has dressing in place as prescribed Yes No Yes Has compression in place as prescribed Yes N/A N/A Has offloadiing in place as prescribed N/A N/A N/A Experienced any changes in pain level or No No management Left Footwear Regular Shoe Regular Shoe Regular Shoe Right Footwear Regular Shoe Regular Shoe Regular Shoe Pain Scale: 0-10 Numeric Is Patient Pain Free? Yes WC - Nurse 1 - General Ulcer Measurement Start: 08/01/21 08:53 Freq: Status: Active Protocol: Activity Type Activity Date Activity User E-Sign Co-Sign Detail Recorded Client Recorded Date Recorded By Document 08/05/21 08:50 AK Desktop 08/05/21 08:52 AK Document 08/12/21 08:07 JASON [id number] 08/12/21 08:08 JASON 08/05/21 08/12/21 08:50 08:07 #1 RLE Cluster -Current Size (cm) - Length 0.6 -Current Size (cm) - Width 1 -Current Size (cm) - Depth 0.1 -Total Square Cm 0.6 -Exudate Amt None Present -Wound Margin Distinct, Outline Attached -Granulation Amt Small (1-33%) -Granulation [place] -Slough/Fibrin No -Texture (Earlene-wound Skin Appearance) Assessed, Scarring -Moisture (Earlene-wound Skin Appearance) No Abnormality, Assessed -Color (Earlene-wound Skin Appearance) No Abnormality, Assessed -Temperature (Earlene-wound Skin No Abnormality Appearance) (Pt Warm) -Tenderness on Palpation (Earlene-wound No Skin Appearance) -Ulcer Cleansing Rinsed/ Irrigated with Saline -Foul Odor after Cleansing No -Anesthetic Used 5% Lidocaine Gel Wound Center Nurse 1 Right Calf (cm) 46 46 Right Ankle (cm) 31 31 WC - Nurse 3 - General Ulcer D/C NN Start: 08/01/21 08:53 Freq: Status: Active Protocol: Activity Type Activity Date Activity User E-Sign Co-Sign Detail Recorded Client Recorded Date Recorded By Document 08/01/21 08:53 AK [id number] 08/01/21 08:55 AK Document 08/05/21 08:50 AK Desktop 08/05/21 08:52 AK Document 08/12/21 08:25 KR [id number] 08/12/21 08:25 KR 08/01/21 08/05/21 08/12/21 08:53 08:50 08:25 Vital Signs Temperature (97.8 F-99.1 F) 97.6 F L 97.9 F Temperature Source Temporal Temporal Pulse Rate (60-100) 63 Pulse Location Monitor Blood Pressure (90/60-120/80) 145/69 H Blood Pressure Mean 94 Source Monitor Pain Scale: 0-10 Numeric Is Patient Pain Free? Yes Wound Care Nurse 3 #1 RLE Cluster -Ulcer Cleansing Rinsed/ Rinsed/ Irrigated with Irrigated with Saline Saline -Foul Odor after Cleansing No -Negative Pressure Wound Therapy N/A -Primary Dressing Applied Promogran Promogran -Primary Dressing Covered/Secured with Dry Gauze -Promogran 0 0 Right -Lotion applied to leg before No No compression wrap -Multi-Layered Wrap Application Unna Boot - Unna Boot - Right ($) Right ($) -Compression Wrap Surepress ($) WC - Visit Discharge Discharge Condition Stable Stable Stable Ambulatory Status Ambulatory Ambulatory Ambulatory Transportation Private Auto Private Auto Private Auto Medication Reconcilliation completed & No No provided to patient/care provider Clinical Summary of Care Provided Yes Yes Assessment/Plan Assessment/Plan (1) Venous hypertension, chronic, with ulcer and inflammation: CODE(S): I87.339 - Chronic venous hypertension (idiopathic) with ulcer and inflammation of unspecified lower extremity; L97.909 - Non-pressure chronic u lcer of unspecified part of unspecified lower leg with unspecified severity QUALIFIERS: Laterality: right Qualified Code(s): I87.331 - Chronic venous hypertension (idiopathic) with ulcer and inflammation of right lower extremity; L97.919 - Non-pressure chronic ulcer of unspecified part of right lower leg with unspecified severity (2) Leg swelling: CODE(S): M79.89 - Other specified soft tissue disorders (3) Leg pain: CODE(S): M79.606 - Pain in leg, unspecified QUALIFIERS: Laterality: bilateral Qualified Code(s): M79.604 - Pain in right leg; M79.605 - Pain in left leg (4) Hyperlipidemia: CODE(S): E78.5 - Hyperlipidemia, unspecified (5) Hypertension: CODE(S): I10 - Essential (primary) hypertension (6) Lipodermatosclerosis: CODE(S): I83.10 - Varicose veins of unspecified lower extremity with inflammation QUALIFIERS: Laterality: bilateral Qualified Code(s): I83.11 - Varicose veins of right lower extremity with inflammation; I83.12 - Varicose veins of left lower extremity with inflammation (7) Hyperpigmentation: CODE(S): L81.9 - Disorder of pigmentation, unspecified (8) Morbid obesity: CODE(S): E66.01 - Morbid (severe) obesity due to excess calories (9) Venous stasis ulcer: CODE(S): I83.009 - Varicose veins of unspecified lower extremity with ulcer of unspecified site; L97.909 - Non-pressure chronic ulcer of unspecified part of unspecified lower leg with unspecified severity QUALIFIERS: Venous stasis ulcer site: calf Varicose vein presence: without varicose veins Laterality: right Non-pressure ulcer stage: limited to breakdown of skin Qualified Code(s): I87.2 - Venous insufficiency (chronic) (peripheral); L97.211 - Non-pressure chronic ulcer of right calf limited to breakdown of skin (10) Venous hypertension, chronic, with inflammation: CODE(S): I87.329 - Chronic venous hypertension (idiopathic) with inflammation of unspecified lower extremity (11) Chronic venous insufficiency: CODE(S): I87.2 - Venous insufficiency (chronic) (peripheral) (12) H/O umbilical hernia repair: CODE(S): Z98.890 - Other specified postprocedural states; Z87.19 - Personal history of other diseases of the digestive system PLAN: This is a 51-year-old male with a longstanding history of chronic venous insufficiency, venous hypertension with inflammation, leg pain, and leg swelling in his lower extremities. He presented with an ulceration in the right lower extremity, which is recurrent. He has had prior ulcerations in the past. 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 We are to continue a regimen of conservative treatment measures, which is to include leg elevation, avoidance of idle standing and sitting, active lifestyle, etc. Compression is to be continued to the right lower extremity by means of SurePress, which will be applied by the patient on a daily basis. Promogran will be applied each day to the ulceration topically. He is to wear his current compression stocking to the left lower extremity daily. The patient has been advised that leg elevation should be to heart level, or higher, as much as possible. Weight loss has been recommended. The patient is to return in 1 week for reassessment. A venous duplex examination was recently performed, which revealed incompetence of the right great saphenous vein, the right small saphenous vein, and the right accessory saphenous vein in the distal thigh. We have briefly discussed the potential role of endovenous laser ablation of the incompetent superficial veins in the right lower extremity, a matter which may be considered in more detail in the future, depending on the patient's clinical course henceforth. Ultimately, the patient will transition to graduated compression stockings of at least 20 to 30 mmHg compression, to be worn long- term. Total time 28 minutes.
--- NOTE | 2021-08-19 08:29 | PCM.WC.HP ---
History of Present Illness Date of Service: 08/19/21 Chief Complaint: Venous stasis ulceration, right pretibial area History of Wound: This is a 51-year-old male with a longstanding history of chronic venous disease. He presented with a superficial venous stasis ulceration on the right pretibial area. It has been present for only 1 to 2 weeks. He has had ulcerations and cellulitis in this area in the past. He had been using Xeroform topically, and was referred by his nurse practitioner in [place], [place]. The patient is morbidly obese. He denies a history of deep vein thrombosis in the past. He claims to sleep on a flat mattress at night. 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 He possesses compression stockings, which were obtained [id number], and has been noncompliant with their use. He experiences pain and swelling in his lower extremities, which has been chronic. [facility] Medical History Chronic venous insufficiency Hyperlipidemia Hyperpigmentation Hypertension Leg pain Leg swelling Lipodermatosclerosis Morbid obesity Venous hypertension, chronic, with inflammation Venous hypertension, chronic, with ulcer and inflammation Venous stasis ulcer Home Medications furosemide 40 mg PO BID 06/24/21 [History Last Taken Unknown] lansoprazole 30 mg PO DAILY 06/24/21 [History Last Taken Unknown] losartan 100 mg PO DAILY 06/24/21 [History Last Taken Unknown] pravastatin 10 mg PO DAILY 06/24/21 [History Last Taken Unknown] Surgical History H/O umbilical hernia repair Social History 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 Smoking Status: Never smoker details: The patient denies use of alcohol Vital Signs Vital Signs Vital Signs: Weight Weight: 330 lb Body Mass Index (BMI) 48.7 Physical Exam Const alert, oriented x3, no apparent distress and well nourished General Appearance: cooperative and well developed Orientation / Consciousness: awake, oriented to person, oriented to place and oriented to time HEENT normocephalic and head/scalp atraumatic Head and Scalp: normal to inspection, normocephalic and atraumatic External Ear: external ears normal Eyes PERRL and EOMs intact bilaterally General Eye: normal appearance of both eyes Resp normal respiratory effort, normal air movement, no retractions and no use of accessory muscles Effort and Inspection: able to speak in complete sentences Extremity no calf tenderness General Extremity: Negative for clubbing or cyanosis Skin Wound Narrative: The venous ulceration on the right pretibial area persists. There is no sign of infection or cellulitis. There is a mild amount of bioburden. Dimensions are documented elsewhere. In addition, there are several unroofed blisters in the distal right lower extremity. Slight swelling and edema are noted in the patient's right lower extremity. Neuro oriented x3 and CN's II-XII intact bilaterally Sensorium / Orientation: awake, alert, oriented to person, oriented to place and oriented to time Psych Appearance: grossly normal and appropriate Attitude: calm Activity / Motor Behavior: appropriate eye contact Speech: normal speech Mood & Affect: euthymic mood Thought Process: normal thought process Thought Content: normal thought content Attention / Concentration: attention grossly intact Debridement Note Debridement Note Wound debrided: Right pretibial Laterality: Right Type of Debridement: Excisional debridement Anesthesia Used: 5% Lidocaine Gel Depth: Down to and including healthy tissue and in the subcutaneous layer Percentage of wound debrided: 100 Instrument Used: 5mm curette Severity: Fat Layer Exposed Amount of bleeding with debridement: Mild Bleeding Controlled with: Compression and gauze Patient tolerated procedure: Patient tolerated procedure well Post-Debridement Measurements and Additional Note: Post-Debridement Measurements/Treatment - Nurse 1 - General Ulcer Assessment Start: 08/01/21 08:53 Freq: Status: Active Protocol: JUSTINE Activity Type Activity Date Activity User E-Sign Co-Sign Detail Recorded Client Recorded Date Recorded By Document 08/01/21 08:53 AK [id number] 08/01/21 08:55 AK Document 08/05/21 08:50 AK Desktop 08/05/21 08:52 AK Document 08/12/21 08:07 KR [id number] 08/12/21 08:08 KR 08/01/21 08/05/21 08/12/21 08:53 08:50 08:07 - Today's Visit Information Type of service Nurse-only Nurse-only Follow-up Visit Visit Visit (Physician/GEOSPATIAL INFORMATION TECHNOLOGIST ) Arrival Mode Ambulatory Ambulatory Ambulatory Patient Identification Verified (Name & No Yes Yes ) Patient Requires Transmission-Based No No Precautions Safety Precautions NA Height and Weight Body Mass Index (BMI) 48.7 48.7 48.7 BMI Classification Obese Obese Obese Vital Signs Temperature (97.8 F-99.1 F) 97.6 F L 97.9 F 97.5 F L Temperature Source Temporal Temporal Temporal Pulse Rate (60-100) 63 70 Pulse Location Monitor Monitor Blood Pressure (90/60-120/80) 145/69 H 138/73 H Blood Pressure Mean 94 94 Source Monitor Monitor Position Sitting Blood Pressure Location Right Arm History Since Last Visit- (Skip if this is Patient's initial visit) Have you changed medications since your No No No last visit? Any new allergies or adverse reactions No No No Had a fall/change in ADL's that may No No No increase risk of falls Signs or symptoms of abuse and/or No No No neglect since last visit Have you been in the hospital since your No Yes No last visit? Has dressing in place as prescribed Yes No Yes Has compression in place as prescribed Yes N/A N/A Has offloadiing in place as prescribed N/A N/A N/A Experienced any changes in pain level or No No management Left Footwear Regular Shoe Regular Shoe Regular Shoe Right Footwear Regular Shoe Regular Shoe Regular Shoe Pain Scale: 0-10 Numeric Is Patient Pain Free? Yes WC - Nurse 1 - General Ulcer Measurement Start: 08/01/21 08:53 Freq: Status: Active Protocol: Activity Type Activity Date Activity User E-Sign Co-Sign Detail Recorded Client Recorded Date Recorded By Document 08/05/21 08:50 AK Desktop 08/05/21 08:52 AK Document 08/12/21 08:07 JASON [id number] 08/12/21 08:08 KR 08/05/21 08/12/21 08:50 08:07 #1 RLE Cluster -Current Size (cm) - Length 0.6 -Current Size (cm) - Width 1 -Current Size (cm) - Depth 0.1 -Total Square Cm 0.6 -Exudate Amt None Present -Wound Margin Distinct, Outline Attached -Granulation Amt Small (1-33%) -Granulation Quality Rock[place] -Slough/Fibrin No -Texture (Earlene-wound Skin Appearance) Assessed, Scarring -Moisture (Earlene-wound Skin Appearance) No Abnormality, Assessed -Color (Earlene-wound Skin Appearance) No Abnormality, Assessed -Temperature (Earlene-wound Skin No Abnormality Appearance) (Pt Warm) -Tenderness on Palpation (Earlene-wound No Skin Appearance) -Ulcer Cleansing Rinsed/ Irrigated with Saline -Foul Odor after Cleansing No -Anesthetic Used 5% Lidocaine Gel Wound Center Nurse 1 Right Calf (cm) 46 46 Right Ankle (cm) 31 31 WC - Nurse 2 - General Ulcer CM Notes Start: 08/01/21 08:53 Freq: Status: Active Protocol: Activity Type Activity Date Activity User E-Sign Co-Sign Detail Recorded Client Recorded Date Recorded By Document 08/12/21 08:49 PL [id number] 08/12/21 08:50 PL 08/12/21 08:49 Wound Center Nurse 2 #1 RLE Cluster -Time 08:15 -Correct Patient Yes -Correct Side, Site, Position Yes -Correct Procedure Yes -Procedure Performed Yes -Type of Procedure Debridement -Clinical Debridement Subcutaneous -Tissue Removed Subcutaneous -Post Debridement (cm) - Length 0.6 -Post Debridement (cm) - Width 1.0 -Post Debridement (cm) - Depth 0.1 -Total Square (Post) (cm) 0.60 -Area of Debridement (cm) - Length 0.6 -Area of Debridement (cm) - Width 1.0 -Total Square (Area) (cm) 0.60 -Tunneling No -Undermining/Tunneling No -Circular Undermining No -Wound/Ulcer Outcome Not Healed -Ulcer Cleansing Rinsed/ Irrigated with Saline -Foul Odor after Cleansing No -Bioengineered Tissue No -Debridement - Subq, 1st 20sq cm Yes WC - Nurse 3 - General Ulcer D/C NN Start: 08/01/21 08:53 Freq: Status: Active Protocol: Activity Type Activity Date Activity User E-Sign Co-Sign Detail Recorded Client Recorded Date Recorded By Document 08/01/21 08:53 AK [id number] 08/01/21 08:55 AK Document 08/05/21 08:50 AK Desktop 08/05/21 08:52 AK Document 08/12/21 08:25 KR [id number] 08/12/21 08:25 KR 08/01/21 08/05/21 08/12/21 08:53 08:50 08:25 Vital Signs Temperature (97.8 F-99.1 F) 97.6 F L 97.9 F Temperature Source Temporal Temporal Pulse Rate (60-100) 63 Pulse Location Monitor Blood Pressure (90/60-120/80) 145/69 H Blood Pressure Mean 94 Source Monitor Pain Scale: 0-10 Numeric Is Patient Pain Free? Yes Wound Care Nurse 3 #1 RLE Cluster -Ulcer Cleansing Rinsed/ Rinsed/ Irrigated with Irrigated with Saline Saline -Foul Odor after Cleansing No -Negative Pressure Wound Therapy N/A -Primary Dressing Applied Promogran Promogran -Primary Dressing Covered/Secured with Dry Gauze -Promogran 0 0 Right -Lotion applied to leg before No No compression wrap -Multi-Layered Wrap Application Unna Boot - Unna Boot - Right ($) Right ($) -Compression Wrap Surepress ($) WC - Visit Discharge Discharge Condition Stable Stable Stable Ambulatory Status Ambulatory Ambulatory Ambulatory Transportation Private Auto Private Auto Private Auto Medication Reconcilliation completed & No No provided to patient/care provider Clinical Summary of Care Provided Yes Yes Assessment/Plan Assessment/Plan (1) Venous hypertension, chronic, with ulcer and inflammation: CODE(S): I87.339 - Chronic venous hypertension (idiopathic) with ulcer and inflammation of unspecified lower extremity; L97.909 - Non-pressure chronic ulcer of unspecified part of unspecified lower leg with unspecified severity QUALIFIERS: Laterality: right Qualified Code(s): I87.331 - Chronic venous hypertension (idiopathic) with ulcer and inflammation of right lower extremity; L97.919 - Non-pressure chronic ulcer of unspecified part of right lower leg with unspecified severity (2) Leg swelling: CODE(S): M79.89 - Other specified soft tissue disorders (3) Leg pain: CODE(S): M79.606 - Pain in leg, unspecified QUALIFIERS: Laterality: bilateral Qualified Code(s): M79.604 - Pain in right leg; M79.605 - Pain in left leg (4) Hyperlipidemia: CODE(S): E78.5 - Hyperlipidemia, unspecified (5) Lipodermatosclerosis: CODE(S): I83.10 - Varicose veins of unspecified lower extremity with inflammation QUALIFIERS: Laterality: bilateral Qualified Code(s): I83.11 - Varicose veins of right lower extremity with inflammation; I83.12 - Varicose veins of left lower extremity with inflammation (6) Hypertension: CODE(S): I10 - Essential (primary) hypertension (7) Hyperpigmentation: CODE(S): L81.9 - Disorder of pigmentation, unspecified (8) Morbid obesity: CODE(S): E66.01 - Morbid (severe) obesity due to excess calories (9) Venous stasis ulcer: CODE(S): I83.009 - Varicose veins of unspecified lower extremity with ulcer of unspecified site; L97.909 - Non-pressure chronic ulcer of unspecified part of unspecified lower leg with unspecified severity QUALIFIERS: Venous stasis ulcer site: calf Varicose vein presence: without varicose veins Laterality: right Non-pressure ulcer stage: limited to breakdown of skin Qualified Code(s): I87.2 - Venous insufficiency (chronic) (peripheral); L97.211 - Non-pressure chronic ulcer of right calf limited to breakdown of skin (10) Venous hypertension, chronic, with inflammation: CODE(S): I87.329 - Chronic venous hypertension (idiopathic) with inflammation of unspecified lower extremity (11) Chronic venous insufficiency: CODE(S): I87.2 - Venous insufficiency (chronic) (peripheral) (12) H/O umbilical hernia repair: CODE(S): Z98.890 - Other specified postprocedural states; Z87.19 - Personal history of other diseases of the digestive system PLAN: This is a 51-year-old male with a longstanding history of chronic venous insufficiency, venous hypertension with inflammation, leg pain, and leg swelling in his lower extremities. He presented with an ulceration in the right lower extremity, which is recurrent. He has had prior ulcerations in the past. 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 He is morbidly obese. We are to continue a regimen of conservative treatment measures, which is to include leg elevation, avoidance of idle standing and sitting, active lifestyle, etc. Compression had been tried by means of SurePress applied by the patient on a a daily basis. However, the result has been suboptimal. The patient has developed additional blisters in the distal right lower extremity, thought to be due to swelling. Therefore, we are to return to the use of Unna boots which will be applied twice weekly. Promogran will be applied topically to the ulceration on the right pretibial area with each reapplication of the Unna boot. He is to wear his current compression stocking to the left lower extremity daily. The patient has been advised that leg elevation should be to heart level, or higher, as much as possible. Weight loss has been recommended. The patient is to return in 1 week for reassessment. A venous duplex examination was recently performed, which revealed incompetence of the right great saphenous vein, the right small saphenous vein, and the right accessory saphenous vein in the distal thigh. We have briefly discussed the potential role of endovenous laser ablation of the incompetent superficial veins in the right lower extremity, a matter which may be considered in more detail in the future, depending on the patient's clinical course henceforth. Ultimately, the patient will transition to graduated compression stockings of at least 20 to 30 mmHg compression, to be worn long-term. Total time 29 minutes.
[2021-08-19 08:53] VITALS: BP 136/61; TEMP 36.2; BMI 48.7
[2021-08-22 08:25] VITALS: BP 125/56; PULSE 58; TEMP 35.9; BMI 48.7
[2021-08-26 08:11] VITALS: BP 153/70; PULSE 67; TEMP 35.7; BMI 48.7
--- NOTE | 2021-08-26 08:49 | PCM.WC.HP ---
History of Present Illness Date of Service: 08/26/21 Chief Complaint: Venous stasis ulceration, right pretibial area History of Wound: This is a 51-year-old male with a longstanding history of chronic venous disease. He presented with a superficial venous stasis ulceration on the right pretibial area. It has been present for only 1 to 2 weeks. He has had ulcerations and cellulitis in this area in the past. He had been using Xeroform topically, and was referred by his nurse practitioner in [place], [place]. The patient is morbidly obese. He denies a history of deep vein thrombosis in the past. He claims to sleep on a flat mattress at night. 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 He possesses compression stockings, which were obtained [id number], and has been noncompliant with their use. He experiences pain and swelling in his lower extremities, which has been chronic. [facility] Medical History Chronic venous insufficiency Hyperlipidemia Hyperpigmentation Hypertension Leg pain Leg swelling Lipodermatosclerosis Morbid obesity Venous hypertension, chronic, with inflammation Venous hypertension, chronic, with ulcer and inflammation Venous stasis ulcer Home Medications furosemide 40 mg PO BID 06/24/21 [History Last Taken Unknown] lansoprazole 30 mg PO DAILY 06/24/21 [History Last Taken Unknown] losartan 100 mg PO DAILY 06/24/21 [History Last Taken Unknown] pravastatin 10 mg PO DAILY 06/24/21 [History Last Taken Unknown] Surgical History H/O umbilical hernia repair Social History 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 Smoking Status: Never smoker details: The patient denies use of alcohol Vital Signs Vital Signs Vital Signs: 08/26/21 08:11 Temperature 96.2 F L Temperature Source Temporal Pulse Rate 67 Blood Pressure 153/70 H Blood Pressure Mean 97 Blood Pressure Source Monitor Weight Weight: 330 lb Body Mass Index (BMI) 48.7 Physical Exam Const alert, oriented x3, no apparent distress and well nourished General Appearance: cooperative, comfortable and well developed Orientation / Consciousness: awake, oriented to person, oriented to place and oriented to time Exam Limitations: no limitations HEENT normocephalic and head/scalp atraumatic Head and Scalp: normal to inspection, normocephalic and atraumatic External Ear: external ears normal Eyes PERRL and EOMs intact bilaterally General Eye: normal appearance of both eyes Resp normal respiratory effort, normal air movement, no retractions and no use of accessory muscles Effort and Inspection: able to speak in complete sentences Extremity no calf tenderness Extremity Narrative: There is no significant swelling or edema in the patient's right lower extremity. General Extremity: Negative for clubbing or cyanosis Skin Wound Narrative: The ulceration on the right pretibial area is smaller in size, though persists. There is a very small ulceration on the right posterior calf as well. There is no sign of infection or cellulitis. There is a moderate amount of bioburden. Dimensions are documented elsewhere. Neuro oriented x3, CN's II-XII intact bilaterally and moves all extremities Sensorium / Orientation: awake, alert, oriented to person, oriented to place and oriented to time Psych Appearance: grossly normal and appropriate Attitude: calm Activity / Motor Behavior: appropriate eye contact Speech: normal speech Mood & Affect: euthymic mood Thought Process: normal thought process Thought Content: normal thought content Attention / Concentration: attention grossly intact Debridement Note Debridement Note Wound debrided: Right pretibial and right posterior calf ulcerations Laterality: Right Type of Debridement: Excisional debridement Anesthesia Used: 5% Lidocaine Gel Depth: Down to and including healthy tissue and in the subcutaneous layer Percentage of wound debrided: 100 Instrument Used: 5mm curette Tissue Removed: Bioburden Severity: Fat Layer Exposed Amount of bleeding with debridement: Mild Bleeding Controlled with: Compression and gauze Patient tolerated procedure: Patient tolerated procedure well Post-Debridement Measurements and Additional Note: Post-Debridement Measurements/Treatment WC - Nurse 1 - General Ulcer Assessment Start: 08/01/21 08:53 Freq: Status: Active Protocol: JUSTINE Activity Type Activity Date Activity User E-Sign Co-Sign Detail Recorded Client Recorded Date Recorded By Document 08/01/21 08:53 AK [id number] 08/01/21 08:55 AK Document 08/05/21 08:50 AK Desktop 08/05/21 08:52 AK Document 08/12/21 08:07 KR [id number] 08/12/21 08:08 KR Document 08/19/21 08:53 KR [id number] 08/19/21 08:55 KR Document 08/22/21 08:25 KR [id number] 08/22/21 08:27 KR Document 08/26/21 08:11 AK [id number] 08/26/21 08:12 AK 08/01/21 08/05/21 08/12/21 08:53 08:50 08:07 WC - Today's Visit Information Type of service Nurse-only Nurse-only Follow-up Visit Visit Visit (Physician/TRANSISTOR TESTER ) Arrival Mode Ambulatory Ambulatory Ambulatory Patient Identification Verified (Name & No Yes Yes ) Patient Requires Transmission-Based No No Precautions Safety Precautions NA Height and Weight Body Mass Index (BMI) 48.7 48.7 48.7 BMI Classification Obese Obese Obese Vital Signs Temperature (97.8 F-99.1 F) 97.6 F L 97.9 F 97.5 F L Temperature Source Temporal Temporal Temporal Pulse Rate (60-100) 63 70 Pulse Location Monitor Monitor Blood Pressure (90/60-120/80) 145/69 H 138/73 H Blood Pressure Mean 94 94 Source Monitor Monitor Position Sitting Blood Pressure Location Right Arm History Since Last Visit- (Skip if this is Patient's initial visit) Have you changed medications since your No No No last visit? Any new allergies or adverse reactions No No No Had a fall/change in ADL's that may No No No increase risk of falls Signs or symptoms of abuse and/or No No No neglect since last visit Have you been in the hospital since your No Yes No last visit? Has dressing in place as prescribed Yes No Yes Has compression in place as prescribed Yes N/A N/A Has offloadiing in place as prescribed N/A N/A N/A Experienced any changes in pain level or No No management Left Footwear Regular Shoe Regular Shoe Regular Shoe Right Footwear Regular Shoe Regular Shoe Regular Shoe Pain Scale: 0-10 Numeric Is Patient Pain Free? Yes 08/19/21 08/22/21 08/26/21 08:53 08:25 08:11 WC - Today's Visit Information Type of service Follow-up Visit Nurse-only Follow-up Visit (Physician/TRANSISTOR TESTER Visit (Physician/TRANSISTOR TESTER ) ) Arrival Mode Ambulatory,Cane Ambulatory Patient Identification Verified (Name & Yes Yes Yes ) Patient Requires Transmission-Based Yes No Precautions Safety Precautions NA NA Height and Weight Body Mass Index (BMI) 48.7 48.7 48.7 BMI Classification Obese Obese Obese Vital Signs Temperature (97.8 F-99.1 F) 97.1 F L 96.7 F L 96.2 F L Temperature Source Temporal Oral Temporal Pulse Rate (60-100) 58 L 67 Pulse Location Monitor Monitor Blood Pressure (90/60-120/80) 136/61 H 125/56 H 153/70 H Blood Pressure Mean 86 79 97 Source Monitor Monitor Monitor Position Semi-Fowlers Blood Pressure Location Left Arm History Since Last Visit- (Skip if this is Patient's initial visit) Have you changed medications since your No No No last visit? Any new allergies or adverse reactions No No No Had a fall/change in ADL's that may No No No increase risk of falls Signs or symptoms of abuse and/or No No No neglect since last visit Have you been in the hospital since your No No No last visit? Has dressing in place as prescribed Yes Yes Yes Has compression in place as prescribed Yes Yes Yes Has offloadiing in place as prescribed N/A N/A N/A Experienced any changes in pain level or No No No management Left Footwear Regular Shoe Regular Shoe Regular Shoe Right Footwear Regular Shoe Regular Shoe Regular Shoe Pain Scale: 0-10 Numeric Is Patient Pain Free? Yes WC - Nurse 1 - General Ulcer Measurement Start: 08/01/21 08:53 Freq: Status: Active Protocol: Activity Type Activity Date Activity User E-Sign Co-Sign Detail Recorded Client Recorded Date Recorded By Document 08/05/21 08:50 AK Desktop 08/05/21 08:52 AK Document 08/12/21 08:07 KR [id number] 08/12/21 08:08 KR Document 08/19/21 08:53 KR [id number] 08/19/21 08:55 KR Document 08/22/21 08:25 KR [id number] 08/22/21 08:27 KR Document 08/26/21 08:11 AK [id number] 08/26/21 08:12 AK 08/05/21 08/12/21 08/19/21 08:50 08:07 08:53 #1 RLE Cluster -Combined with other wound No -Current Size (cm) - Length 0.6 13 -Current Size (cm) - Width 1 24 -Current Size (cm) - Depth 0.1 0.1 -Total Square Cm 0.6 312 -Photo Taken No -Epithelialization -Tunneling No -Undermining/Tunneling No -Circular Undermining No -Change in Wound Grade/Stage No -Exudate Amt None Present Medium -Exudate Type Purulent -Wound Margin Distinct, Distinct, Outline Outline Attached Attached -Granulation Amt Small (1-33%) None Present (0 %) -Granulation Quality [place] N/A -Slough/Fibrin No No -Necrosis Amt None Present (0 %) -Structure Exposed N/A -Texture (Earlene-wound Skin Appearance) Assessed, No Abnormality, Scarring Assessed -Moisture (Earlene-wound Skin Appearance) No Abnormality, Assessed, Assessed Weeping -Color (Earlene-wound Skin Appearance) No Abnormality, No Abnormality, Assessed Assessed -Temperature (Earlene-wound Skin No Abnormality No Abnormality Appearance) (Pt Warm) (Pt Warm) -Tenderness on Palpation (Earlene-wound No No Skin Appearance) -Ulcer Cleansing Rinsed/ Rinsed/ Irrigated with Irrigated with Saline Saline -Foul Odor after Cleansing No No -Anesthetic Used 5% Lidocaine 5% Lidocaine Gel Gel Wound Center Nurse 1 Lower Limb Edema Present Yes Right Calf (cm) 46 46 47 Right Ankle (cm) 31 31 29 08/22/21 08/26/21 08:25 08:11 #1 RLE Cluster -Combined with other wound -Current Size (cm) - Length 0.1 -Current Size (cm) - Width 0.1 -Current Size (cm) - Depth 0.1 -Total Square Cm 0.01 -Photo Taken No -Epithelialization None Present -Tunneling No -Undermining/Tunneling No -Circular Undermining No -Change in Wound Grade/Stage -Exudate Amt None Present -Exudate Type -Wound Margin -Granulation Amt None Present (0 %) -Granulation Quality N/A -Slough/Fibrin No -Necrosis Amt None Present (0 %) -Structure Exposed N/A -Texture (Earlene-wound Skin Appearance) No Abnormality, Assessed -Moisture (Earlene-wound Skin Appearance) No Abnormality, Assessed -Color (Earlene-wound Skin Appearance) No Abnormality, Assessed -Temperature (Earlene-wound Skin No Abnormality Appearance) (Pt Warm) -Tenderness on Palpation (Earlene-wound No Skin Appearance) -Ulcer Cleansing Rinsed/ Irrigated with Saline -Foul Odor after Cleansing No -Anesthetic Used 5% Lidocaine Gel Wound Center Nurse 1 Lower Limb Edema Present Right Calf (cm) 45.5 47 Right Ankle (cm) 58 29 - Nurse 2 - General Ulcer CM Notes Start: 08/01/21 08:53 Freq: Status: Active Protocol: Activity Type Activity Date Activity User E-Sign Co-Sign Detail Recorded Client Recorded Date Recorded By Document 08/12/21 08:49 PL [id number] 08/12/21 08:50 PL Document 08/19/21 11:21 PL [id number] 08/19/21 11:25 PL Document 08/26/21 08:43 PL [id number] 08/26/21 08:44 PL 08/12/21 08/19/21 08/26/21 08:49 11:21 08:43 Wound Center Nurse 2 #1 RLE Cluster -Time 08:15 08:15 08:20 -Correct Patient Yes Yes Yes -Correct Side, Site, Position Yes Yes Yes -Correct Procedure Yes Yes Yes -Procedure Performed Yes Yes Yes -Type of Procedure Debridement Debridement Debridement -Clinical Debridement Subcutaneous Subcutaneous Subcutaneous -Tissue Removed Subcutaneous Subcutaneous Subcutaneous -Post Debridement (cm) - Length 0.6 13 0.2 -Post Debridement (cm) - Width 1.0 24 0.2 -Post Debridement (cm) - Depth 0.1 0.1 0.1 -Total Square (Post) (cm) 0.60 312 0.04 -Area of Debridement (cm) - Length 0.6 1.3 0.2 -Area of Debridement (cm) - Width 1.0 2.4 0.2 -Total Square (Area) (cm) 0.60 3.12 0.04 -Tunneling No No No -Undermining/Tunneling No No No -Circular Undermining No No No -Wound/Ulcer Outcome Not Healed Not Healed Healed- Surgical Closure -Ulcer Cleansing Rinsed/ Soap and Water Irrigated with Saline -Foul Odor after Cleansing No No No -Bioengineered Tissue No No No -Bleeding Controlled with Pressure Pressure -Treatment Response Procedure Procedure Tolerated Well Tolerated Well -Debridement - Subq, 1st 20sq cm Yes Yes Yes WC - Nurse 3 - General Ulcer D/C NN Start: 08/01/21 08:53 Freq: Status: Active Protocol: Activity Type Activity Date Activity User E-Sign Co-Sign Detail Recorded Client Recorded Date Recorded By Document 08/01/21 08:53 AK [id number] 08/01/21 08:55 AK Document 08/05/21 08:50 AK Desktop 08/05/21 08:52 AK Document 08/12/21 08:25 KR [id number] 08/12/21 08:25 KR Document 08/19/21 08:36 KR [id number] 08/19/21 08:37 KR Document 08/22/21 08:25 KR [id number] 08/22/21 08:27 KR 08/01/21 08/05/21 08/12/21 08:53 08:50 08:25 Vital Signs Temperature (97.8 F-99.1 F) 97.6 F L 97.9 F Temperature Source Temporal Temporal Pulse Rate (60-100) 63 Pulse Location Monitor Blood Pressure (90/60-120/80) 145/69 H Blood Pressure Mean 94 Source Monitor Position Blood Pressure Location Pain Scale: 0-10 Numeric Is Patient Pain Free? Yes Wound Care Nurse 3 #1 RLE Cluster -Ulcer Cleansing Rinsed/ Rinsed/ Irrigated with Irrigated with Saline Saline -Foul Odor after Cleansing No -Negative Pressure Wound Therapy N/A -Primary Dressing Applied Promogran Promogran -Primary Dressing Covered/Secured with Dry Gauze -Promogran 0 0 Right -Lotion applied to leg before No No compression wrap -Multi-Layered Wrap Application Unna Boot - Unna Boot - Right ($) Right ($) -Compression Wrap Surepress ($) WC - Visit Discharge Discharge Condition Stable Stable Stable Ambulatory Status Ambulatory Ambulatory Ambulatory Transportation Private Auto Private Auto Private Auto Accompanied by Medication Reconcilliation completed & No No provided to patient/care provider Clinical Summary of Care Provided Yes Yes 08/19/21 08/22/21 08:36 08:25 Vital Signs Temperature (97.8 F-99.1 F) 96.7 F L Temperature Source Oral Pulse Rate (60-100) 58 L Pulse Location Monitor Blood Pressure (90/60-120/80) 125/56 H Blood Pressure Mean 79 Source Monitor Position Semi-Fowlers Blood Pressure Location Left Arm Pain Scale: 0-10 Numeric Is Patient Pain Free? Yes Yes Wound Care Nurse 3 #1 RLE Cluster -Ulcer Cleansing -Foul Odor after Cleansing -Negative Pressure Wound Therapy -Primary Dressing Applied Promogran -Primary Dressing Covered/Secured with Dry Gauze, Secured with Tape -Promogran 1 Right -Lotion applied to leg before compression wrap -Multi-Layered Wrap Application Unna Boot - Unna Boot - Right ($) Right ($) -Compression Wrap WC - Visit Discharge Discharge Condition Stable Stable Ambulatory Status Ambulatory Ambulatory Transportation Private Auto Private Auto Accompanied by self Medication Reconcilliation completed & provided to patient/care provider Clinical Summary of Care Provided Assessment/Plan Assessment/Plan (1) Venous stasis ulcer: CODE(S): I83.009 - Varicose veins of unspecified lower extremity with ulcer of unspecified site; L97.909 - Non-pressure chronic ulcer of unspecified part of unspecified lower leg with unspecified severity QUALIFIERS: Venous stasis ulcer site: calf Varicose vein presence: without varicose veins Laterality: right Non-pressure ulcer stage: limited to breakdown of skin Qualified Code(s): I87.2 - Venous insufficiency (chronic) (peripheral); L97.211 - Non-pressure chronic ulcer of right calf limited to breakdown of skin (2) Venous hypertension, chronic, with inflammation: CODE(S): I87.329 - Chronic venous hypertension (idiopathic) with inflammation of unspecified lower extremity (3) Venous hypertension, chronic, with ulcer and inflammation: CODE(S): I87.339 - Chronic venous hypertension (idiopathic) with ulcer and inflammation of unspecified lower extremity; L97.909 - Non-pressure chronic ulcer of unspecified part of unspecified lower leg with unspecified severity QUALIFIERS: Laterality: right Qualified Code(s): I87.331 - Chronic venous hypertension (idiopathic) with ulcer and inflammation of right lower extremity; L97.919 - Non-pressure chronic ulcer of unspecified part of right lower leg with unspecified severity (4) Leg swelling: CODE(S): M79.89 - Other specified soft tissue disorders (5) Leg pain: CODE(S): M79.606 - Pain in leg, unspecified QUALIFIERS: Laterality: bilateral Qualified Code(s): M79.604 - Pain in right leg; M79.605 - Pain in left leg (6) Hyperlipidemia: CODE(S): E78.5 - Hyperlipidemia, unspecified (7) Hypertension: CODE(S): I10 - Essential (primary) hypertension (8) Lipodermatosclerosis: CODE(S): I83.10 - Varicose veins of unspecified lower extremity with inflammation QUALIFIERS: Laterality: bilateral Qualified Code(s): I83.11 - Varicose veins of right lower extremity with inflammation; I83.12 - Varicose veins of left lower extremity with inflammation (9) Hyperpigmentation: CODE(S): L81.9 - Disorder of pigmentation, unspecified (10) Morbid obesity: CODE(S): E66.01 - Morbid (severe) obesity due to excess calories (11) Chronic venous insufficiency: CODE(S): I87.2 - Venous insufficiency (chronic) (peripheral) (12) H/O umbilical hernia repair: CODE(S): Z98.890 - Other specified postprocedural states; Z87.19 - Personal history of other diseases of the digestive system PLAN: This is a 51-year-old male with a longstanding history of chronic venous insufficiency, venous hypertension with inflammation, leg pain, and leg swelling in his lower extremities. He presented with an ulceration in the right lower extremity, which is recurrent. He has had prior ulcerations in the past. 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 He is morbidly obese. We are to continue a regimen of conservative treatment measures, which is to include leg elevation, avoidance of idle standing and sitting, active lifestyle, etc. Compression had been tried by means of SurePress applied by the patient on a a daily basis. However, the result was suboptimal. The patient developed additional blisters in the distal right lower extremity, thought to be due to swelling. Therefore, we returned to the use of Unna boots which will be applied twice weekly. Promogran will be applied topically to the ulcerations on the right pretibial and posterior calf areas with each reapplication of the Unna boot. He is to wear his current compression stocking to the left lower extremity daily. The patient has been advised that leg elevation should be to heart level, or higher, as much as possible. Weight loss has been recommended. The patient is to return in 1 week for reassessment. A venous duplex examination was recently performed, which revealed incompetence of the right great saphenous vein, the right small saphenous vein, and the right accessory saphenous vein in the distal thigh. We have briefly discussed the potential role of endovenous laser ablation of the incompetent superficial veins in the right lower extremity, a matter which may be considered in more detail in the future, depending on the patient's clinical course henceforth. Ultimately, the patient will transition to graduated compression stockings of at least 20 to 30 mmHg compression, to be worn long-term. He has been provided a prescription for such. Total time 28 minutes.
== END 2021-08-28 23:59 ==
LOC: WC 08:00
PROVIDERS: PCP Nurse Practitioner Family; Visit Provider Surgery
DX: I87.331 Chronic venous hypertension (idiopathic) with ulcer and inflammation of right lower extremity (principal); L97.212 Non-pressure chronic ulcer of right calf with fat layer exposed; E66.01 Morbid (severe) obesity due to excess calories; E78.5 Hyperlipidemia, unspecified; M79.605 Pain in left leg; I10 Essential (primary) hypertension; Z91.19 Patient's noncompliance with other medical treatment and regimen; Z68.42 Body mass index [BMI] 45.0-49.9, adult
CPT/HCPCS: 11042; 29580; 99212; G0463

== ENCOUNTER 2021-09-23 08:00 | Outpatient (RCR) | payer BC, SELFPAY ==
[2021-08-29 00:31] VITALS: BP 153/70; PULSE 67; RESP 22; TEMP 35.7; BMI 48.7
[2021-08-29 08:17] VITALS: BP 136/79; PULSE 65; TEMP 36.4; BMI 48.7
[2021-09-02 08:08] VITALS: BP 151/83; PULSE 76; TEMP 36.1; BMI 48.7
--- NOTE | 2021-09-02 08:33 | HP.PCM_ITS ---
History of Present Illness Date of Service: 09/02/21 Chief Complaint: Venous stasis ulceration, right pretibial area History of Wound: This is a 51-year-old male with a longstanding history of chronic venous disease. He presented with a superficial venous stasis ulceration on the right pretibial area. It has been present for only 1 to 2 weeks. He has had ulcerations and cellulitis in this area in the past. He had been using Xeroform topically, and was referred by his nurse practitioner in [place], [place]. The patient is morbidly obese. He denies a history of deep vein thrombosis in the past. He claims to sleep on a flat mattress at night. 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 He possesses compression stockings, which were obtained [id number], and has been noncompliant with their use. He experiences pain and swelling in his lower extremities, which has been chronic. [facility] Medical History Chronic venous insufficiency Hyperlipidemia Hyperpigmentation Hypertension Leg pain Leg swelling Lipodermatosclerosis Morbid obesity Venous hypertension, chronic, with inflammation Venous hypertension, chronic, with ulcer and inflammation Venous stasis ulcer Home Medications furosemide 40 mg PO BID 06/24/21 [History Last Taken Unknown] lansoprazole 30 mg PO DAILY 06/24/21 [History Last Taken Unknown] losartan 100 mg PO DAILY 06/24/21 [History Last Taken Unknown] pravastatin 10 mg PO DAILY 06/24/21 [History Last Taken Unknown] Surgical History H/O umbilical hernia repair Social History 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 Smoking Status: Never smoker details: The patient denies use of alcohol Vital Signs Vital Signs Vital Signs: 09/02/21 08:08 Temperature 97 F L Temperature Source Temporal Pulse Rate 76 Blood Pressure 151/83 H Blood Pressure Mean 105 Blood Pressure Source Monitor Weight Weight: 330 lb Body Mass Index (BMI) 48.7 Physical Exam Const alert, oriented x3, no apparent distress and well nourished General Appearance: cooperative and well developed Orientation / Consciousness: awake, oriented to person, oriented to place and oriented to time HEENT normocephalic and head/scalp atraumatic Head and Scalp: normal to inspection, normocephalic and atraumatic External Ear: external ears normal Eyes PERRL and EOMs intact bilaterally General Eye: normal appearance of both eyes Resp normal respiratory effort, normal air movement, no retractions and no use of accessory muscles Effort and Inspection: able to speak in complete sentences Extremity no calf tenderness Extremity Narrative: Current venous changes persist in the patient's right lower extremity. These include lipodermatosclerosis and hyperpigmentation in the gaiter area. General Extremity: Negative for clubbing or cyanosis Skin Wound Narrative: The ulceration on the right pretibial area persists. It is smaller in size. Dimensions are documented elsewhere. There is no sign of infection or cellulitis. There is a moderate amount of bioburden. Neuro oriented x3, CN's II-XII intact bilaterally, moves all extremities and no focal motor deficits Sensorium / Orientation: awake, alert, oriented to person, oriented to place and oriented to time Psych Appearance: grossly normal and appropriate Attitude: calm Activity / Motor Behavior: appropriate eye contact Speech: normal speech Mood & Affect: euthymic mood Thought Process: normal thought process Thought Content: normal thought content Attention / Concentration: attention grossly intact Debridement Note Debridement Note Wound debrided: Right pretibial ulceration Laterality: Right Type of Debridement: Excisional debridement Anesthesia Used: 5% Lidocaine Gel Depth: Down to and including healthy tissue and in the subcutaneous layer Percentage of wound debrided: 100 Instrument Used: 3mm curette Tissue Removed: Bioburden Severity: Fat Layer Exposed Amount of bleeding with debridement: Mild Bleeding Controlled with: Compression and gauze Patient tolerated procedure: Patient tolerated procedure well Post-Debridement Measurements and Additional Note: Post-Debridement Measurements/Treatment - Nurse 1 - General Ulcer Assessment Start: 08/29/21 08:16 Freq: Status: Active Protocol: JUSTINE Activity Type Activity Date Activity User E-Sign Co-Sign Detail Recorded Client Recorded Date Recorded By Document 08/29/21 08:17 KR [id number] 08/29/21 08:20 KR Document 09/02/21 08:08 AK [id number] 09/02/21 08:10 MIGUEL 08/29/21 09/02/21 08:17 08:08 - Today's Visit Information Type of service Nurse-only Follow-up Visit Visit (Physician/[employer] ) Arrival Mode Ambulatory Ambulatory Patient Identification Verified (Name & Yes Yes ) Patient Requires Transmission-Based No Precautions Safety Precautions NA Height and Weight Body Mass Index (BMI) 48.7 48.7 BMI Classification Obese Obese Vital Signs Temperature (97.8 F-99.1 F) 97.5 F L 97 F L Temperature Source Oral Temporal Pulse Rate (60-100) 65 76 Pulse Location Monitor Monitor Blood Pressure (90/60-120/80) 136/79 H 151/83 H Blood Pressure Mean 98 105 Source Monitor Monitor Position Semi-Fowlers Blood Pressure Location Left Arm History Since Last Visit- (Skip if this is Patient's initial visit) Have you changed medications since your No No last visit? Any new allergies or adverse reactions No No Had a fall/change in ADL's that may No No increase risk of falls Signs or symptoms of abuse and/or No No neglect since last visit Have you been in the hospital since your No No last visit? Has dressing in place as prescribed Yes Yes Has compression in place as prescribed Yes Yes Has offloadiing in place as prescribed No N/A Experienced any changes in pain level or No No management Left Footwear Regular Shoe Regular Shoe Right Footwear Regular Shoe Regular Shoe Pain Scale: 0-10 Numeric Is Patient Pain Free? Yes - Nurse 1 - General Ulcer Measurement Start: 08/29/21 08:16 Freq: Status: Active Protocol: Activity Type Activity Date Activity User E-Sign Co-Sign Detail Recorded Client Recorded Date Recorded By Document 08/29/21 08:17 KR [id number] 08/29/21 08:20 KR Document 09/02/21 08:08 AK [id number] 09/02/21 08:10 AK 08/29/21 09/02/21 08:17 08:08 #1 RLE Cluster -Combined with other wound No -Current Size (cm) - Length 0.4 -Current Size (cm) - Width 0.5 -Current Size (cm) - Depth 0.1 -Total Square Cm 0.20 -Photo Taken No -Epithelialization None Present -Tunneling No -Undermining/Tunneling No -Circular Undermining No -Exudate Amt None Present -Wound Margin Distinct, Outline Attached -Granulation Amt None Present (0 %) -Granulation Quality N/A -Slough/Fibrin No -Necrosis Amt None Present (0 %) -Structure Exposed N/A -Texture (Earlene-wound Skin Appearance) No Abnormality, Assessed -Moisture (Earlene-wound Skin Appearance) No Abnormality, Assessed -Color (Earlene-wound Skin Appearance) No Abnormality, Assessed -Temperature (Earlene-wound Skin No Abnormality Appearance) (Pt Warm) -Tenderness on Palpation (Earlene-wound No Skin Appearance) -Ulcer Cleansing Rinsed/ Irrigated with Saline -Foul Odor after Cleansing No -Anesthetic Used 5% Lidocaine Gel Wound Center Nurse 1 Right Calf (cm) 46 46.3 Right Ankle (cm) 30 28.5 WC - Nurse 2 - General Ulcer CM Notes Start: 08/29/21 08:16 Freq: Status: Active Protocol: Activity Type Activity Date Activity User E-Sign Co-Sign Detail Recorded Client Recorded Date Recorded By Document 09/02/21 08:31 PL [id number] 09/02/21 08:32 PL 09/02/21 08:31 Wound Center Nurse 2 #1 RLE Cluster -Time 08:17 -Correct Patient Yes -Correct Side, Site, Position Yes -Correct Procedure Yes -Procedure Performed Yes -Type of Procedure Debridement -Clinical Debridement Subcutaneous -Tissue Removed Subcutaneous -Post Debridement (cm) - Length 0.4 -Post Debridement (cm) - Width 0.5 -Post Debridement (cm) - Depth 0.1 -Total Square (Post) (cm) 0.20 -Area of Debridement (cm) - Length 0.4 -Area of Debridement (cm) - Width 0.5 -Total Square (Area) (cm) 0.20 -Tunneling No -Undermining/Tunneling No -Circular Undermining No -Wound/Ulcer Outcome Not Healed -Ulcer Cleansing Rinsed/ Irrigated with Saline -Foul Odor after Cleansing No -Bioengineered Tissue No -Bleeding Controlled with Pressure -Treatment Response Procedure Tolerated Well -Debridement - Subq, 1st 20sq cm Yes WC - Nurse 3 - General Ulcer D/C NN Start: 08/29/21 08:16 Freq: Status: Active Protocol: Activity Type Activity Date Activity User E-Sign Co-Sign Detail Recorded Client Recorded Date Recorded By Document 08/29/21 08:20 KR [id number] 08/29/21 08:20 KR 08/29/21 08:20 Wound Care Nurse 3 Right -Multi-Layered Wrap Application Unna Boot - Right ($) Pain Scale: 0-10 Numeric Is Patient Pain Free? Yes WC - Visit Discharge Discharge Condition Stable Ambulatory Status Ambulatory Transportation Private Auto Accompanied by self Assessment/Plan Assessment/Plan (1) Venous stasis ulcer: CODE(S): I83.009 - Varicose veins of unspecified lower extremity with ulcer of unspecified site; L97.909 - Non-pressure chronic ulcer of unspecified part of unspecified lower leg with unspecified severity QUALIFIERS: Venous stasis ulcer site: calf Varicose vein presence: without varicose veins Laterality: right Non-pressure ulcer stage: limited to breakdown of skin Qualified Code(s): I87.2 - Venous insufficiency (chronic) (peripheral); L97.211 - Non-pressure chronic ulcer of right calf limited to breakdown of skin (2) Venous hypertension, chronic, with inflammation: CODE(S): I87.329 - Chronic venous hypertension (idiopathic) with inflammation of unspecified lower extremity QUALIFIERS: Laterality: right Qualified Code(s): I87.321 - Chronic venous hypertension (idiopathic) with inflammation of right lower extremity (3) Venous hypertension, chronic, with ulcer and inflammation: CODE(S): I87.339 - Chronic venous hypertension (idiopathic) with ulcer and inflammation of unspecified lower extremity; L97.909 - Non-pressure chronic ulcer of unspecified part of unspecified lower leg with unspecified severity QUALIFIERS: Laterality: right Qualified Code(s): I87.331 - Chronic venous hypertension (idiopathic) with ulcer and inflammation of right lower extremity; L97.919 - Non-pressure chronic ulcer of unspecified part of right lower leg with unspecified severity (4) Chronic venous insufficiency: CODE(S): I87.2 - Venous insufficiency (chronic) (peripheral) (5) Leg swelling: CODE(S): M79.89 - Other specified soft tissue disorders (6) Leg pain: CODE(S): M79.606 - Pain in leg, unspecified QUALIFIERS: Laterality: bilateral Qualified Code(s): M79.604 - Pain in right leg; M79.605 - Pain in left leg (7) Lipodermatosclerosis: CODE(S): I83.10 - Varicose veins of unspecified lower extremity with i nflammation QUALIFIERS: Laterality: bilateral Qualified Code(s): I83.11 - Varicose veins of right lower extremity with inflammation; I83.12 - Varicose veins of left lower extremity with inflammation (8) Hyperlipidemia: CODE(S): E78.5 - Hyperlipidemia, unspecified (9) Hypertension: CODE(S): I10 - Essential (primary) hypertension (10) Hyperpigmentation: CODE(S): L81.9 - Disorder of pigmentation, unspecified (11) Morbid obesity: CODE(S): E66.01 - Morbid (severe) obesity due to excess calories (12) H/O umbilical hernia repair: CODE(S): Z98.890 - Other specified postprocedural states; Z87.19 - Personal history of other diseases of the digestive system PLAN: This is a 51-year-old male with a longstanding history of chronic venous insufficiency, venous hypertension with inflammation, leg pain, and leg swelling in his lower extremities. He presented with an ulceration in the right lower extremity, which is recurrent. He has had prior ulcerations in the past. 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 He is morbidly obese. We are to continue a regimen of conservative treatment measures, which is to include leg elevation, avoidance of idle standing and sitting, active lifestyle, etc. Compression had been tried by means of SurePress applied by the patient on a a daily basis. However, the result was suboptimal. The patient developed additional blisters in the distal right lower extremity, thought to be due to swelling. Therefore, we returned to the use of Unna boots which will be applied twice weekly. Promogran will be applied topically to the ulcerations on the right pretibial and posterior calf areas with each reapplication of the Unna boot. He is to wear his current compression stocking to the left lower extremity daily. The patient has been advised that leg elevation should be to heart level, or higher, as much as possible. Weight loss has been recommended. The patient is to return in 1 week for reassessment. A venous duplex exam ination was recently performed, which revealed incompetence of the right great saphenous vein, the right small saphenous vein, and the right accessory saphenous vein in the distal thigh. We have again discussed the potential role of endovenous laser ablation of the incompetent superficial veins in the right lower extremity, a matter which may be considered in more detail in the future, depending on the patient's clinical course henceforth. Ultimately, the patient will transition to graduated compression stockings of at least 20 to 30 mmHg compression, to be worn long-term. He has been provided a prescription for such. Total time 29 minutes.
[2021-09-05 08:04] VITALS: BP 145/77; PULSE 56; RESP 18; TEMP 36; BMI 48.7
[2021-09-09 08:12] VITALS: BP 153/73; PULSE 73; TEMP 36.2; BMI 48.7
--- NOTE | 2021-09-09 09:03 | PCM.WC.HP ---
History of Present Illness Date of Service: 09/09/21 Chief Complaint: Venous stasis ulceration, right pretibial area History of Wound: This is a 51-year-old male with a longstanding history of chronic venous disease. He presented with a superficial venous stasis ulceration on the right pretibial area. It has been present for only 1 to 2 weeks. He has had ulcerations and cellulitis in this area in the past. He had been using Xeroform topically, and was referred by his nurse practitioner in [place], [place]. The patient is morbidly obese. He denies a history of deep vein thrombosis in the past. He claims to sleep on a flat mattress at night. 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 He possesses compression stockings, which were obtained [id number], and has been noncompliant with their use. He experiences pain and swelling in his lower extremities, which has been chronic. [facility] Medical History Chronic venous insufficiency Hyperlipidemia Hyperpigmentation Hypertension Leg pain Leg swelling Lipodermatosclerosis Morbid obesity Venous hypertension, chronic, with inflammation Venous hypertension, chronic, with ulcer and inflammation Venous stasis ulcer Home Medications furosemide 40 mg PO BID 06/24/21 [History Last Taken Unknown] lansoprazole 30 mg PO DAILY 06/24/21 [History Last Taken Unknown] losartan 100 mg PO DAILY 06/24/21 [History Last Taken Unknown] pravastatin 10 mg PO DAILY 06/24/21 [History Last Taken Unknown] Surgical History H/O umbilical hernia repair Social History 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 Smoking Status: Never smoker details: The patient denies use of alcohol Vital Signs Vital Signs Vital Signs: 09/09/21 08:12 Temperature 97.1 F L Temperature Source Temporal Pulse Rate 73 Blood Pressure 153/73 H Blood Pressure Mean 99 Blood Pressure Source Monitor Weight Weight: 330 lb Body Mass Index (BMI) 48.7 Physical Exam Const alert, oriented x3, no apparent distress and well nourished General Appearance: cooperative, comfortable and well developed Orientation / Consciousness: awake, oriented to person, oriented to place and oriented to time HEENT normocephalic and head/scalp atraumatic Head and Scalp: normal to inspection, normocephalic and atraumatic External Ear: external ears normal Eyes PERRL and EOMs intact bilaterally General Eye: normal appearance of both eyes Resp normal respiratory effort, normal air movement, no retractions and no use of accessory muscles Effort and Inspection: able to speak in complete sentences Extremity no calf tenderness Extremity Narrative: Mild swelling and edema are noted in the patient's right lower extremity. Chronic hyperpigmentation is noted in the gaiter areas bilaterally. General Extremity: Negative for clubbing or cyanosis Skin Wound Narrative: The ulceration persists in the right anterolateral calf. It appears to be smaller in size. Dimensions are documented elsewhere. There is no sign of infection or cellulitis. There is a moderate amount of bioburden. The ulceration appears to be nearly healed. Neuro oriented x3, CN's II-XII intact bilaterally and moves all extremities Sensorium / Orientation: awake, alert, oriented to person, oriented to place and oriented to time Psych Appearance: grossly normal and appropriate Attitude: calm Activity / Motor Behavior: appropriate eye contact Speech: normal speech Mood & Affect: euthymic mood Thought Process: normal thought process Thought Content: normal thought content Attention / Concentration: attention grossly intact Debridement Note Debridement Note Wound debrided: Right anterolateral calf Laterality: Right Type of Debridement: Excisional debridement Anesthesia Used: 5% Lidocaine Gel Depth: Down to and including healthy tissue and in the subcutaneous layer Percentage of wound debrided: 100 Instrument Used: 5mm curette Tissue Removed: Bioburden Severity: Fat Layer Exposed Amount of bleeding with debridement: Mild Bleeding Controlled with: Compression and gauze Patient tolerated procedure: Patient tolerated procedure well Post-Debridement Measurements and Additional Note: Post-Debridement Measurements/Treatment ELVER - Nurse 1 - General Ulcer Assessment Start: 08/29/21 08:16 Freq: Status: Active Protocol: JUSTINE Activity Type Activity Date Activity User E-Sign Co-Sign Detail Recorded Client Recorded Date Recorded By Document 08/29/21 08:17 KR [id number] 08/29/21 08:20 KR Document 09/02/21 08:08 AK [id number] 09/02/21 08:10 AK Document 09/05/21 08:04 JF [id number] 09/05/21 08:15 JF Document 09/09/21 08:12 AK [id number] 09/09/21 08:16 AK 08/29/21 09/02/21 09/05/21 08:17 08:08 08:04 - Today's Visit Information Type of service Nurse-only Follow-up Visit Nurse-only Visit (Physician/ENERGY ADMINISTRATOR Visit ) Arrival Mode Ambulatory Ambulatory Ambulatory Patient Identification Verified (Name & Yes Yes Yes ) Patient Requires Transmission-Based No Precautions Safety Precautions NA Height and Weight Body Mass Index (BMI) 48.7 48.7 48.7 BMI Classification Obese Obese Obese Vital Signs Temperature (97.8 F-99.1 F) 97.5 F L 97 F L 96.8 F L Temperature Source Oral Temporal Temporal Pulse Rate (60-100) 65 76 56 L Pulse Location Monitor Monitor Monitor Respiratory Rate (12-18) 18 Respiratory rate source Observation Blood Pressure (90/60-120/80) 136/79 H 151/83 H 145/77 H Blood Pressure Mean 98 105 99 Source Monitor Monitor Monitor Position Semi-Fowlers Semi-Fowlers Blood Pressure Location Left Arm Right Forearm History Since Last Visit- (Skip if this is Patient's initial visit) Have you changed medications since your No No No last visit? Any new allergies or adverse reactions No No No Had a fall/change in ADL's that may No No No increase risk of falls Signs or symptoms of abuse and/or No No No neglect since last visit Have you been in the hospital since your No No No last visit? Has dressing in place as prescribed Yes Yes Yes Has compression in place as prescribed Yes Yes Yes Has offloadiing in place as prescribed No N/A N/A Experienced any changes in pain level or No No No management Left Footwear Regular Shoe Regular Shoe Regular Shoe Right Footwear Regular Shoe Regular Shoe Regular Shoe Pain Scale: 0-10 Numeric Is Patient Pain Free? Yes Yes 09/09/21 08:12 - Today's Visit Information Type of service Follow-up Visit (Physician/ENERGY ADMINISTRATOR ) Arrival Mode Ambulatory Patient Identification Verified (Name & Yes ) Patient Requires Transmission-Based No Precautions Safety Precautions NA Height and Weight Body Mass Index (BMI) 48.7 BMI Classification Obese Vital Signs Temperature (97.8 F-99.1 F) 97.1 F L Temperature Source Temporal Pulse Rate (60-100) 73 Pulse Location Monitor Respiratory Rate (12-18) Respiratory rate source Blood Pressure (90/60-120/80) 153/73 H Blood Pressure Mean 99 Source Monitor Position Blood Pressure Location History Since Last Visit- (Skip if this is Patient's initial visit) Have you changed medications since your No last visit? Any new allergies or adverse reactions No Had a fall/change in ADL's that may No increase risk of falls Signs or symptoms of abuse and/or No neglect since last visit Have you been in the hospital since your No last visit? Has dressing in place as prescribed Yes Has compression in place as prescribed Yes Has offloadiing in place as prescribed N/A Experienced any changes in pain level or No management Left Footwear Regular Shoe Right Footwear Regular Shoe Pain Scale: 0-10 Numeric Is Patient Pain Free? WC - Nurse 1 - General Ulcer Measurement Start: 08/29/21 08:16 Freq: Status: Active Protocol: Activity Type Activity Date Activity User E-Sign Co-Sign Detail Recorded Client Recorded Date Recorded By Document 08/29/21 08:17 KR [id number] 08/29/21 08:20 KR Document 09/02/21 08:08 AK [id number] 09/02/21 08:10 AK Document 09/05/21 08:04 JF [id number] 09/05/21 08:15 JF Document 09/09/21 08:12 AK [id number] 09/09/21 08:16 AK 08/29/21 09/02/21 09/05/21 08:17 08:08 08:04 #1 RLE Cluster -Combined with other wound No No -Current Size (cm) - Length 0.4 0.3 -Current Size (cm) - Width 0.5 0.3 -Current Size (cm) - Depth 0.1 0.1 -Total Square Cm 0.20 0.09 -Photo Taken No No -Epithelialization None Present Large 67-100% -Tunneling No No -Undermining/Tunneling No No -Circular Undermining No No -Change in Wound Grade/Stage -Exudate Amt None Present None Present -Wound Margin Distinct, Outline Attached -Granulation Amt None Present (0 Large (67-100%) %) -Granulation Quality N/A Red -Slough/Fibrin No No -Necrosis Amt None Present (0 %) -Structure Exposed N/A N/A -Texture (Earlene-wound Skin Appearance) No Abnormality, Assessed, Assessed Localized Edema -Moisture (Earlene-wound Skin Appearance) No Abnormality, No Abnormality Assessed -Color (Earlene-wound Skin Appearance) No Abnormality, No Abnormality Assessed -Temperature (Earlene-wound Skin No Abnormality No Abnormality Appearance) (Pt Warm) (Pt Warm) -Tenderness on Palpation (Earlene-wound No No Skin Appearance) -Ulcer Cleansing Rinsed/ Irrigated with Saline -Foul Odor after Cleansing No No -Anesthetic Used 5% Lidocaine Gel Wound Center Nurse 1 Lower Limb Edema Present Yes Right Calf (cm) 46 46.3 46.7 Right Ankle (cm) 30 28.5 28.2 Left Calf (cm) Left Ankle (cm) 09/09/21 08:12 #1 RLE Cluster -Combined with other wound No -Current Size (cm) - Length 0.5 -Current Size (cm) - Width 0.5 -Current Size (cm) - Depth 0.5 -Total Square Cm 0.25 -Photo Taken No -Epithelialization None Present -Tunneling No -Undermining/Tunneling No -Circular Undermining No -Change in Wound Grade/Stage No -Exudate Amt None Present -Wound Margin Flat & Intact -Granulation Amt None Present (0 %) -Granulation Quality N/A -Slough/Fibrin No -Necrosis Amt None Present (0 %) -Structure Exposed N/A -Texture (Earlene-wound Skin Appearance) No Abnormality, Assessed -Moisture (Earlene-wound Skin Appearance) No Abnormality, Assessed -Color (Earlene-wound Skin Appearance) Assessed, Hemosiderin Staining -Temperature (Earlene-wound Skin No Abnormality Appearance) (Pt Warm) -Tenderness on Palpation (Earlene-wound No Skin Appearance) -Ulcer Cleansing Rinsed/ Irrigated with Saline -Foul Odor after Cleansing No -Anesthetic Used 5% Lidocaine Gel Wound Center Nurse 1 Lower Limb Edema Present Right Calf (cm) 46 Right Ankle (cm) 29 Left Calf (cm) 49 Left Ankle (cm) 29 WC - Nurse 2 - General Ulcer CM Notes Start: 08/29/21 08:16 Freq: Status: Active Protocol: Activity Type Activity Date Activity User E-Sign Co-Sign Detail Recorded Client Recorded Date Recorded By Document 09/02/21 08:31 PL [id number] 09/02/21 08:32 PL Document 09/09/21 08:41 PL [id number] 09/09/21 08:42 PL 09/02/21 09/09/21 08:31 08:41 Wound Center Nurse 2 #1 RLE Cluster -Time 08:17 08:25 -Correct Patient Yes Yes -Correct Side, Site, Position Yes Yes -Correct Procedure Yes Yes -Procedure Performed Yes Yes -Type of Procedure Debridement Debridement -Clinical Debridement Subcutaneous Subcutaneous -Tissue Removed Subcutaneous Subcutaneous -Post Debridement (cm) - Length 0.4 0.3 -Post Debridement (cm) - Width 0.5 0.3 -Post Debridement (cm) - Depth 0.1 0.1 -Total Square (Post) (cm) 0.20 0.09 -Area of Debridement (cm) - Length 0.4 0.3 -Area of Debridement (cm) - Width 0.5 0.3 -Total Square (Area) (cm) 0.20 0.09 -Tunneling No No -Undermining/Tunneling No No -Circular Undermining No No -Wound/Ulcer Outcome Not Healed Not Healed -Ulcer Cleansing Rinsed/ Rinsed/ Irrigated with Irrigated with Saline Saline -Foul Odor after Cleansing No No -Bioengineered Tissue No No -Bleeding Controlled with Pressure Pressure -Treatment Response Procedure Procedure Tolerated Well Tolerated Well -Debridement - Subq, 1st 20sq cm Yes Yes WC - Nurse 3 - General Ulcer D/C NN Start: 08/29/21 08:16 Freq: Status: Active Protocol: Activity Type Activity Date Activity User E-Sign Co-Sign Detail Recorded Client Recorded Date Recorded By Document 08/29/21 08:20 KR [id number] 08/29/21 08:20 KR Document 09/02/21 08:44 JF [id number] 09/02/21 08:45 JF Document 09/05/21 08:16 JF [id number] 09/05/21 08:16 JF Document 09/09/21 08:44 AK [id number] 09/09/21 08:45 AK 08/29/21 09/02/21 09/05/21 08:20 08:44 08:16 #1 RLE Cluster -Ulcer Cleansing Rinsed/ Rinsed/ Irrigated with Irrigated with Saline Saline -Foul Odor after Cleansing No No -Negative Pressure Wound Therapy -Primary Dressing Applied Promogran Promogran -Primary Dressing Covered/Secured with Dry Gauze Dry Gauze -Promogran 0 0 Wound Care Nurse 3 Left -Lotion applied to leg before compression wrap -Stockings Right -Lotion applied to leg before compression wrap -Multi-Layered Wrap Application Unna Boot - Unna Boot - Unna Boot - Right ($) Right ($) Right ($) -Compression Wrap Unna Boot ($) ( single) -Stockings Pain Scale: 0-10 Numeric Is Patient Pain Free? Yes Yes Yes WC - Visit Discharge Discharge Condition Stable Stable Stable Ambulatory Status Ambulatory Ambulatory Ambulatory Transportation Private Auto Private Auto Private Auto Accompanied by self Medication Reconcilliation completed & Yes Yes provided to patient/care provider Clinical Summary of Care Provided No Yes 09/09/21 08:44 #1 RLE Cluster -Ulcer Cleansing Rinsed/ Irrigated with Saline -Foul Odor after Cleansing No -Negative Pressure Wound Therapy N/A -Primary Dressing Applied Promogran -Primary Dressing Covered/Secured with -Promogran 0 Wound Care Nurse 3 Left -Lotion applied to leg before No compression wrap -Stockings Yes: own Right -Lotion applied to leg before No compression wrap -Multi-Layered Wrap Application -Compression Wrap -Stockings Yes: own Pain Scale: 0-10 Numeric Is Patient Pain Free? WC - Visit Discharge Discharge Condition Stable Ambulatory Status Ambulatory Transportation Private Auto Accompanied by Medication Reconcilliation completed & No provided to patient/care provider Clinical Summary of Care Provided Yes Assessment/Plan Assessment/Plan (1) Venous hypertension, chronic, with inflammation: CODE(S): I87.329 - Chronic venous hypertension (idiopathic) with inflammation of unspecified lower extremity QUALIFIERS: Laterality: right Qualified Code(s): I87.321 - Chronic venous hypertension (idiopathic) with inflammation of right lower extremity (2) Venous stasis ulcer: CODE(S): I83.009 - Varicose veins of unspecified lower extremity with ulcer of unspecified site; L97.909 - Non-pressure chronic ulcer of unspecified part of unspecified lower leg with unspecified severity QUALIFIERS: Venous stasis ulcer site: calf Varicose vein presence: without varicose veins Laterality: right Non-pressure ulcer stage: limited to breakdown of skin Qualified Code(s): I87.2 - Venous insufficiency (chronic) (peripheral); L97.211 - Non-pressure chronic ulcer of right calf limited to breakdown of skin (3) Venous hypertension, chronic, with ulcer and inflammation: CODE(S): I87.339 - Chronic venous hypertension (idiopathic) with ulcer and inflammation of unspecified lower extremity; L97.909 - Non-pressure chronic ulcer of unspecified part of unspecified lower leg with unspecified severity QUALIFIERS: Laterality: right Qualified Code(s): I87.331 - Chronic venous hypertension (idiopathic) with ulcer and inflammation of right lower extremity; L97.919 - Non-pressure chronic ulcer of unspecified part of right lower leg with unspecified severity (4) Chronic venous insufficiency: CODE(S): I87.2 - Venous insufficiency (chronic) (peripheral) (5) Leg swelling: CODE(S): M79.89 - Other specified soft tissue disorders (6) Leg pain: CODE(S): M79.606 - Pain in leg, unspecified QUALIFIERS: Laterality: bilateral Qualified Code(s): M79.604 - Pain in right leg; M79.605 - Pain in left leg (7) Hyperlipidemia: CODE(S): E78.5 - Hyperlipidemia, unspecified (8) Lipodermatosclerosis: CODE(S): I83.10 - Varicose veins of unspecified lower extremity with inflammation QUALIFIERS: Laterality: bilateral Qualified Code(s): I83.11 - Varicose veins of right lower extremity with inflammation; I83.12 - Varicose veins of left lower extremity with inflammation (9) Hyperpigmentation: CODE(S): L81.9 - Disorder of pigmentation, unspecified (10) Morbid obesity: CODE(S): E66.01 - Morbid (severe) obesity due to excess calories (11) H/O umbilical hernia repair: CODE(S): Z98.890 - Other specified postprocedural states; Z87.19 - Personal history of other diseases of the digestive system (12) Hypertension: CODE(S): I10 - Essential (primary) hypertension PLAN: This is a 51-year-old male with a longstanding history of chronic venous insufficiency, venous hypertension with inflammation, leg pain, and leg swelling in his lower extremities. He presented with an ulceration in the right lower extremity, which is recurrent. He has had prior ulcerations in the past. 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 He is morbidly obese. We are to continue a regimen of conservative treatment measures, which is to include leg elevation, avoidance of idle standing and sitting, active lifestyle, etc. Compression had been tried by means of SurePress applied by the patient on a a daily basis. However, the result was suboptimal. The patient developed additional blisters in the distal right lower extremity, thought to be due to swelling. Therefore, we returned to the use of Unna boots. The patient has obtained graduated compression stockings of 20 to 30 mmHg, knee-high length. He is to wear these now on a daily basis bilaterally. Promogran will be applied topically to the ulceration on the right anterolateral calf. The patient has been advised that leg elevation should be to heart level, or higher, as much as possible. Weight loss has been recommended. The patient is to return in 1 week for reassessment. A venous duplex examination was recently performed, which revealed incompetence of the right great saphenous vein, the right small saphenous vein, and the right accessory saphenous vein in the distal thigh. We have again discussed the potential role of endovenous laser ablation of the incompetent superficial veins in the right lower extremity, a matter which may be considered in more detail in the future, depending on the patient's clinical course henceforth. Total time 28 minutes.
[2021-09-23 08:05] VITALS: BP 196/78; PULSE 62; RESP 16; TEMP 36.4; BMI 48.7
--- NOTE | 2021-09-23 08:28 | HP.PCM_ITS ---
History of Present Illness Date of Service: 09/23/21 Chief Complaint: Venous stasis ulceration, right pretibial area History of Wound: This is a 51-year-old male with a longstanding history of chronic venous disease. He presented with a superficial venous stasis ulceration on the right pretibial area. It has been present for only 1 to 2 weeks. He has had ulcerations and cellulitis in this area in the past. He had been using Xeroform topically, and was referred by his nurse practitioner in [place], [place]. The patient is morbidly obese. He denies a history of deep vein thrombosis in the past. He claims to sleep on a flat mattress at night. 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 He possesses compression stockings, which were obtained [id number], and has been noncompliant with their use. He experiences pain and swelling in his lower extremities, which has been chronic. [facility] Medical History Chronic venous insufficiency Hyperlipidemia Hyperpigmentation Hypertension Leg pain Leg swelling Lipodermatosclerosis Morbid obesity Venous hypertension, chronic, with inflammation Venous hypertension, chronic, with ulcer and inflammation Venous stasis ulcer Home Medications furosemide 40 mg PO BID 06/24/21 [History Last Taken Unknown] lansoprazole 30 mg PO DAILY 06/24/21 [History Last Taken Unknown] losartan 100 mg PO DAILY 06/24/21 [History Last Taken Unknown] pravastatin 10 mg PO DAILY 06/24/21 [History Last Taken Unknown] Surgical History H/O umbilical hernia repair Social History 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 Smoking Status: Never smoker details: The patient denies use of alcohol Vital Signs Vital Signs Vital Signs: 09/23/21 08:05 Temperature 97.5 F L Temperature Source Temporal Pulse Rate 62 Respiratory Rate 16 Blood Pressure 196/78 H Blood Pressure Mean 117 Blood Pressure Source Monitor Blood Pressure Position Sitting Blood Pressure Location Left Forearm Oxygen Delivery Method Room Air Weight Weight: 330 lb Body Mass Index (BMI) 48.7 Physical Exam Const alert, oriented x3, no apparent distress and well nourished General Appearance: cooperative and well developed Orientation / Consciousness: awake, oriented to person, oriented to place and oriented to time HEENT normocephalic and head/scalp atraumatic Head and Scalp: normal to inspection, normocephalic and atraumatic External Ear: external ears normal Eyes PERRL and EOMs intact bilaterally General Eye: normal appearance of both eyes Resp normal respiratory effort, normal air movement, no retractions and no use of accessory muscles Effort and Inspection: able to speak in complete sentences Extremity no calf tenderness General Extremity: Negative for clubbing or cyanosis Skin Wound Narrative: Mild to moderate swelling and edema noted in both lower extremities. There is slight inflammatory erythema in the gaiter areas bilaterally. The ulceration on the right pretibial area persists, but appears to be slightly smaller. Dimensions are documented elsewhere. There are several nearby excoriations. There is now a new ulceration on the left pretibial area, which appears to be the result of trauma caused by the patient in donning and doffing his compression stockings. There is no sign of infection or cellulitis at this site. Bioburden is present at both pretibial sites. Dimensions are documented bilaterally. Neuro oriented x3, CN's II-XII intact bilaterally and moves all extremities Sensorium / Orientation: awake, alert, oriented to person, oriented to place and oriented to time Psych Appearance: grossly normal and appropriate Attitude: calm Activity / Motor Behavior: appropriate eye contact Speech: normal speech Mood & Affect: euthymic mood Thought Process: normal thought process Thought Content: normal thought content Attention / Concentration: attention grossly intact Debridement Note Debridement Note Wound debrided: Right pretibial Laterality: Right Type of Debridement: Excisional debridement Anesthesia Used: 5% Lidocaine Gel Depth: Down to and including healthy tissue and in the subcutaneous layer Percentage of wound debrided: 100 Instrument Used: 3mm curette Severity: Fat Layer Exposed Amount of bleeding with debridement: Mild Bleeding Controlled with: Compression and gauze Patient tolerated procedure: Patient tolerated procedure well Post-Debridement Measurements and Additional Note: Post-Debridement Measurements/Treatment ELVER - Nurse 1 - General Ulcer Assessment Start: 08/29/21 08:16 Freq: Status: Active Protocol: JUSTINE Activity Type Activity Date Activity User E-Sign Co-Sign Detail Recorded Client Recorded Date Recorded By Document 08/29/21 08:17 KR [id number] 08/29/21 08:20 KR Document 09/02/21 08:08 AK [id number] 09/02/21 08:10 AK Document 09/05/21 08:04 JF [id number] 09/05/21 08:15 JF Document 09/09/21 08:12 AK [id number] 09/09/21 08:16 AK Document 09/23/21 08:05 BM [id number] 09/23/21 08:12 BMF 08/29/21 09/02/21 09/05/21 08:17 08:08 08:04 WC - Today's Visit Information Type of service Nurse-only Follow-up Visit Nurse-only Visit (Physician/HAND GLUER AND SLICER Visit ) Arrival Mode Ambulatory Ambulatory Ambulatory Transfer Assistance Patient Identification Verified (Name & Yes Yes Yes ) Patient Requires Transmission-Based No Precautions Safety Precautions NA Height and Weight Body Mass Index (BMI) 48.7 48.7 48.7 BMI Classification Obese Obese Obese Vital Signs Temperature (97.8 F-99.1 F) 97.5 F L 97 F L 96.8 F L Temperature Source Oral Temporal Temporal Pulse Rate (60-100) 65 76 56 L Pulse Location Monitor Monitor Monitor Respiratory Rate (12-18) 18 Respiratory rate source Observation Oxygen Delivery Method Blood Pressure (90/60-120/80) 136/79 H 151/83 H 145/77 H Blood Pressure Mean 98 105 99 Source Monitor Monitor Monitor Position Semi-Fowlers Semi-Fowlers Blood Pressure Location Left Arm Right Forearm History Since Last Visit- (Skip if this is Patient's initial visit) Have you changed medications since your No No No last visit? Any new allergies or adverse reactions No No No Had a fall/change in ADL's that may No No No increase risk of falls Signs or symptoms of abuse and/or No No No neglect since last visit Have you been in the hospital since your No No No last visit? Has dressing in place as prescribed Yes Yes Yes Has compression in place as prescribed Yes Yes Yes Has offloadiing in place as prescribed No N/A N/A Experienced any changes in pain level or No No No management Left Footwear Regular Shoe Regular Shoe Regular Shoe Right Footwear Regular Shoe Regular Shoe Regular Shoe Pain Scale: 0-10 Numeric Is Patient Pain Free? Yes Yes 09/09/21 09/23/21 08:12 08:05 WC - Today's Visit Information Type of service Follow-up Visit Follow-up Visit (Physician/HAND GLUER AND SLICER (Physician/HAND GLUER AND SLICER ) ) Arrival Mode Ambulatory Ambulatory Transfer Assistance None Patient Identification Verified (Name & Yes Yes ) Patient Requires Transmission-Based No No Precautions Safety Precautions NA Height and Weight Body Mass Index (BMI) 48.7 48.7 BMI Classification Obese Obese Vital Signs Temperature (97.8 F-99.1 F) 97.1 F L 97.5 F L Temperature Source Temporal Temporal Pulse Rate (60-100) 73 62 Pulse Location Monitor Monitor Respiratory Rate (12-18) 16 Respiratory rate source Observation Oxygen Delivery Method Room Air Blood Pressure (90/60-120/80) 153/73 H 196/78 H Blood Pressure Mean 99 117 Source Monitor Monitor Position Sitting Blood Pressure Location Left Forearm History Since Last Visit- (Skip if this is Patient's initial visit) Have you changed medications since your No No last visit? Any new allergies or adverse reactions No No Had a fall/change in ADL's that may No No increase risk of falls Signs or symptoms of abuse and/or No No neglect since last visit Have you been in the hospital since your No No last visit? Has dressing in place as prescribed Yes Yes Has compression in place as prescribed Yes No Has offloadiing in place as prescribed N/A N/A Experienced any changes in pain level or No No management Left Footwear Regular Shoe Regular Shoe Right Footwear Regular Shoe Regular Shoe Pain Scale: 0-10 Numeric Is Patient Pain Free? Yes WC - Nurse 1 - General Ulcer Measurement Start: 08/29/21 08:16 Freq: Status: Active Protocol: Activity Type Activity Date Activity User E-Sign Co-Sign Detail Recorded Client Recorded Date Recorded By Document 08/29/21 08:17 KR [id number] 08/29/21 08:20 KR Document 09/02/21 08:08 AK [id number] 09/02/21 08:10 AK Document 09/05/21 08:04 JF [id number] 09/05/21 08:15 JF Document 09/09/21 08:12 AK [id number] 09/09/21 08:16 AK Document 09/23/21 08:05 BM [id number] 09/23/21 08:12 BM 08/29/21 09/02/21 09/05/21 08:17 08:08 08:04 #1 RLE Cluster -Combined with other wound No No -Current Size (cm) - Length 0.4 0.3 -Current Size (cm) - Width 0.5 0.3 -Current Size (cm) - Depth 0.1 0.1 -Total Square Cm 0.20 0.09 -Photo Taken No No -Epithelialization None Present Large 67-100% -Tunneling No No -Undermining/Tunneling No No -Circular Undermining No No -Change in Wound Grade/Stage -Exudate Amt None Present None Present -Wound Margin Distinct, Outline Attached -Granulation Amt None Present (0 Large (67-100%) %) -Granulation Quality N/A Red -Slough/Fibrin No No -Necrosis Amt None Present (0 %) -Necrotic Tissue Type -Structure Exposed N/A N/A -Texture (Earlene-wound Skin Appearance) No Abnormality, Assessed, Assessed Localized Edema -Moisture (Earlene-wound Skin Appearance) No Abnormality, No Abnormality Assessed -Color (Earlene-wound Skin Appearance) No Abnormality, No Abnormality Assessed -Temperature (Earlene-wound Skin No Abnormality No Abnormality Appearance) (Pt Warm) (Pt Warm) -Tenderness on Palpation (Earlene-wound No No Skin Appearance) -Ulcer Cleansing Rinsed/ Irrigated with Saline -Foul Odor after Cleansing No No -Anesthetic Used 5% Lidocaine Gel Wound Center Nurse 1 Lower Limb Edema Present Yes Right Calf (cm) 46 46.3 46.7 Right Ankle (cm) 30 28.5 28.2 Left Calf (cm) Left Ankle (cm) 09/09/21 09/23/21 08:12 08:05 #1 RLE Cluster -Combined with other wound No No -Current Size (cm) - Length 0.5 0.1 -Current Size (cm) - Width 0.5 0.1 -Current Size (cm) - Depth 0.5 0.1 -Total Square Cm 0.25 0.01 -Photo Taken No -Epithelialization None Present -Tunneling No No -Undermining/Tunneling No No -Circular Undermining No No -Change in Wound Grade/Stage No -Exudate Amt None Present -Wound Margin Flat & Intact -Granulation Amt None Present (0 %) -Granulation Quality N/A -Slough/Fibrin No Yes -Necrosis Amt None Present (0 Large (67-100%) %) -Necrotic Tissue Type Eschar -Structure Exposed N/A -Texture (Earlene-wound Skin Appearance) No Abnormality, Assessed, Assessed Scarring -Moisture (Earlene-wound Skin Appearance) No Abnormality, Assessed,Dry/ Assessed Scaly -Color (Earlene-wound Skin Appearance) Assessed, Assessed Hemosiderin Staining -Temperature (Earlene-wound Skin No Abnormality No Abnormality Appearance) (Pt Warm) (Pt Warm) -Tenderness on Palpation (Earlene-wound No No Skin Appearance) -Ulcer Cleansing Rinsed/ Rinsed/ Irrigated with Irrigated with Saline Saline -Foul Odor after Cleansing No No -Anesthetic Used 5% Lidocaine 4% Lidocaine Gel Solution Wound Center Nurse 1 Lower Limb Edema Present Yes Right Calf (cm) 46 47 Right Ankle (cm) 29 29.4 Left Calf (cm) 49 Left Ankle (cm) 29 WC - Nurse 2 - General Ulcer CM Notes Start: 08/29/21 08:16 Freq: Status: Active Protocol: Activity Type Activity Date Activity User E-Sign Co-Sign Detail Recorded Client Recorded Date Recorded By Document 09/02/21 08:31 PL [id number] 09/02/21 08:32 PL Document 09/09/21 08:41 PL [id number] 09/09/21 08:42 PL 09/02/21 09/09/21 08:31 08:41 Wound Center Nurse 2 #1 RLE Cluster -Time 08:17 08:25 -Correct Patient Yes Yes -Correct Side, Site, Position Yes Yes -Correct Procedure Yes Yes -Procedure Performed Yes Yes -Type of Procedure Debridement Debridement -Clinical Debridement Subcutaneous Subcutaneous -Tissue Removed Subcutaneous Subcutaneous -Post Debridement (cm) - Length 0.4 0.3 -Post Debridement (cm) - Width 0.5 0.3 -Post Debridement (cm) - Depth 0.1 0.1 -Total Square (Post) (cm) 0.20 0.09 -Area of Debridement (cm) - Length 0.4 0.3 -Area of Debridement (cm) - Width 0.5 0.3 -Total Square (Area) (cm) 0.20 0.09 -Tunneling No No -Undermining/Tunneling No No -Circular Undermining No No -Wound/Ulcer Outcome Not Healed Not Healed -Ulcer Cleansing Rinsed/ Rinsed/ Irrigated with Irrigated with Saline Saline -Foul Odor after Cleansing No No -Bioengineered Tissue No No -Bleeding Controlled with Pressure Pressure -Treatment Response Procedure Procedure Tolerated Well Tolerated Well -Debridement - Subq, 1st 20sq cm Yes Yes - Nurse 3 - General Ulcer D/C NN Start: 08/29/21 08:16 Freq: Status: Active Protocol: Activity Type Activity Date Activity User E-Sign Co-Sign Detail Recorded Client Recorded Date Recorded By Document 08/29/21 08:20 KR [id number] 08/29/21 08:20 KR Document 09/02/21 08:44 JF [id number] 09/02/21 08:45 JF Document 09/05/21 08:16 JF [id number] 09/05/21 08:16 JF Document 09/09/21 08:44 AK [id number] 09/09/21 08:45 AK 08/29/21 09/02/21 09/05/21 08:20 08:44 08:16 #1 RLE Cluster -Ulcer Cleansing Rinsed/ Rinsed/ Irrigated with Irrigated with Saline Saline -Foul Odor after Cleansing No No -Negative Pressure Wound Therapy -Primary Dressing Applied Promogran Promogran -Primary Dressing Covered/Secured with Dry Gauze Dry Gauze -Promogran 0 0 Wound Care Nurse 3 Left -Lotion applied to leg before compression wrap -Stockings Right -Lotion applied to leg before compression wrap -Multi-Layered Wrap Application Unna Boot - Unna Boot - Unna Boot - Right ($) Right ($) Right ($) -Compression Wrap Unna Boot ($) ( single) -Stockings Pain Scale: 0-10 Numeric Is Patient Pain Free? Yes Yes Yes - Visit Discharge Discharge Condition Stable Stable Stable Ambulatory Status Ambulatory Ambulatory Ambulatory Transportation Private Auto Private Auto Private Auto Accompanied by self Medication Reconcilliation completed & Yes Yes provided to patient/care provider Clinical Summary of Care Provided No Yes 09/09/21 08:44 #1 RLE Cluster -Ulcer Cleansing Rinsed/ Irrigated with Saline -Foul Odor after Cleansing No -Negative Pressure Wound Therapy N/A -Primary Dressing Applied Promogran -Primary Dressing Covered/Secured with -Promogran 0 Wound Care Nurse 3 Left -Lotion applied to leg before No compression wrap -Stockings Yes: own Right -Lotion applied to leg before No compression wrap -Multi-Layered Wrap Application -Compression Wrap -Stockings Yes: own Pain Scale: 0-10 Numeric Is Patient Pain Free? WC - Visit Discharge Discharge Condition Stable Ambulatory Status Ambulatory Transportation Private Auto Accompanied by Medication Reconcilliation completed & No provided to patient/care provider Clinical Summary of Care Provided Yes Additional Wound Wound debrided: Left pretibial Laterality: Left Type of Debridement: Selective debridement Anesthesia Used: 5% Lidocaine Gel Depth: Down to and including healthy tissue Percentage of wound debrided: 100 Instrument Used: 3mm curette Severity: Limited To Skin Breakdown Amount of bleeding with debridement: Mild Bleeding Controlled with: Compression and gauze Patient tolerated procedure: Patient tolerated procedure well Assessment/Plan Assessment/Plan (1) Venous stasis ulcer: CODE(S): I83.009 - Varicose veins of unspecified lower extremity with ulcer of unspecified site; L97.909 - Non-pressure chronic ulcer of unspecified part of unspecified lower leg with unspecified severity QUALIFIERS: Venous stasis ulcer site: calf Varicose vein presence: without varicose veins Laterality: right Non-pressure ulcer stage: limited to breakdown of skin Qualified Code(s): I87.2 - Venous insufficiency (chronic) (peripheral); L97.211 - Non-pressure chronic ulcer of right calf limited to breakdown of skin (2) Venous hypertension, chronic, with ulcer and inflammation: CODE(S): I87.339 - Chronic venous hypertension (idiopathic) with ulcer and inflammation of unspecified lower extremity; L97.909 - Non-pressure chronic ulcer of unspecified part of unspecified lower leg with unspecified severity QUALIFIERS: Laterality: right Qualified Code(s): I87.331 - Chronic venous hypertension (idiopathic) with ulcer and inflammation of right lower extremity; L97.919 - Non-pressure chronic ulcer of unspecified part of right lower leg with unspecified severity (3) Leg swelling: CODE(S): M79.89 - Other specified soft tissue disorders (4) Leg pain: CODE(S): M79.606 - Pain in leg, unspecified QUALIFIERS: Laterality: bilateral Qualified Code(s): M79.604 - Pain in right leg; M79.605 - Pain in left leg (5) Hyperlipidemia: CODE(S): E78.5 - Hyperlipidemia, unspecified (6) Hypertension: CODE(S): I10 - Essential (primary) hypertension (7) Lipodermatosclerosis: CODE(S): I83.10 - Varicose veins of unspecified lower extremity with inflammation QUALIFIERS: Laterality: bilateral Qualified Code(s): I83.11 - Varicose veins of right lower extremity with inflammation; I83.12 - Varicose veins of left lower extremity with inflammation (8) Hyperpigmentation: CODE(S): L81.9 - Disorder of pigmentation, unspecified (9) Morbid obesity: CODE(S): E66.01 - Morbid (severe) obesity due to excess calories (10) Venous hypertension, chronic, with inflammation: CODE(S): I87.329 - Chronic venous hypertension (idiopathic) with inflammation of unspecified lower extremity QUALIFIERS: Laterality: right Qualified Code(s): I87.321 - Chronic venous hypertension (idiopathic) with inflammation of right lower extremity (11) Chronic venous insufficiency: CODE(S): I87.2 - Venous insufficiency (chronic) (peripheral) (12) H/O umbilical hernia repair: CODE(S): Z98.890 - Other specified postprocedural states; Z87.19 - Personal history of other diseases of the digestive system PLAN: This is a 51-year-old male with a longstanding history of chronic venous insufficiency, venous hypertension with inflammation, leg pain, and leg swelling in his lower extremities. He presented with an ulceration in the right lower extremity, which is recurrent. He has had prior ulcerations in the past. 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 He is morbidly obese. We are to continue a regimen of conservative treatment measures, which is to include leg elevation, avoidance of idle standing and sitting, active lifestyle, etc. Compression had been tried by means of SurePress applied by the patient on a a daily basis. However, the result was suboptimal. The patient developed additional blisters in the distal right lower extremity, thought to be due to swelling. Therefore, we returned to the use of Unna boots. The patient has obtained graduated compression stockings of 20 to 30 mmHg, knee-high length. He was to wear these on a daily basis bilaterally. However, the patient had great difficulty in donning and doffing his graduated compression stockings. As result, he created trauma which resulted in an open ulceration on the left pretibial area. Therefore, we are to measure fit and arrange for the patient to receive Velcro compression garments for the lower extremities bilaterally. It is hoped that these will facilitate compression to the lower extremities, creating less difficulty for the patient in donning and doffing. Promogran will be applied topically to the ulcerations in the pretibial areas bilaterally. The patient has been advised that leg elevation should be to heart level, or higher, as much as possible. Weight loss has been recommended. The patient is to return in 1 week for reassessment. A venous duplex examination was recently performed, which revealed incompetence of the right great saphenous vein, the right small saphenous vein, and the right accessory saphenous vein in the distal thigh. We have again discussed the potential role of endovenous laser ablation of the incompetent superficial veins in the right lower extremity, a matter which may be considered in more detail in the future, depending on the patient's clinical course henceforth. Total time 29 minutes.
== END 2021-09-28 23:59 ==
LOC: WC 08:00
PROVIDERS: PCP Nurse Practitioner Family; Visit Provider Surgery
DX: I87.331 Chronic venous hypertension (idiopathic) with ulcer and inflammation of right lower extremity (principal); L97.212 Non-pressure chronic ulcer of right calf with fat layer exposed; E66.01 Morbid (severe) obesity due to excess calories; E78.5 Hyperlipidemia, unspecified; M79.605 Pain in left leg; I10 Essential (primary) hypertension; Z91.19 Patient's noncompliance with other medical treatment and regimen; Z68.42 Body mass index [BMI] 45.0-49.9, adult; L97.221 Non-pressure chronic ulcer of left calf limited to breakdown of skin
CPT/HCPCS: 11042; 29580

== ENCOUNTER 2021-10-21 08:00 | Outpatient (RCR) | payer BC, SELFPAY ==
[2021-09-29 00:25] VITALS: BP 196/78; PULSE 62; RESP 16; TEMP 36.4; BMI 48.7
[2021-10-07 07:57] VITALS: BP 172/79; PULSE 70; RESP 18; TEMP 36.2; BMI 48.7
--- NOTE | 2021-10-07 08:16 | PCM.WC.HP ---
History of Present Illness Date of Service: 10/07/21 Chief Complaint: Venous stasis ulceration, right pretibial area History of Wound: This is a 51-year-old male with a longstanding history of chronic venous disease. He presented with a superficial venous stasis ulceration on the right pretibial area. It has been present for only 1 to 2 weeks. He has had ulcerations and cellulitis in this area in the past. He had been using Xeroform topically, and was referred by his nurse practitioner in [place], [place]. The patient is morbidly obese. He denies a history of deep vein thrombosis in the past. He claims to sleep on a flat mattress at night. 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 He possesses compression stockings, which were obtained [id number], and has been noncompliant with their use. He experiences pain and swelling in his lower extremities, which has been chronic. [facility] Medical History Chronic venous insufficiency Hyperlipidemia Hyperpigmentation Hypertension Leg pain Leg swelling Lipodermatosclerosis Morbid obesity Venous hypertension, chronic, with inflammation Venous hypertension, chronic, with ulcer and inflammation Venous stasis ulcer Home Medications furosemide 40 mg PO BID 06/24/21 [History Last Taken Unknown] lansoprazole 30 mg PO DAILY 06/24/21 [History Last Taken Unknown] losartan 100 mg PO DAILY 06/24/21 [History Last Taken Unknown] pravastatin 10 mg PO DAILY 06/24/21 [History Last Taken Unknown] Surgical History H/O umbilical hernia repair Social 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 Smoking Status: Never smoker details: The patient denies use of alcohol Vital Signs Vital Signs Vital Signs: 10/07/21 07:57 Temperature 97.1 F L Temperature Source Temporal Pulse Rate 70 Respiratory Rate 18 Blood Pressure 172/79 H Blood Pressure Mean 110 Blood Pressure Source Monitor Blood Pressure Position Sitting Blood Pressure Location Left Arm Oxygen Delivery Method Room Air Weight Weight: 330 lb Body Mass Index (BMI) 48.7 Physical Exam Const alert, oriented x3, no apparent distress and well nourished General Appearance: cooperative and well developed Orientation / Consciousness: awake, oriented to person, oriented to place and oriented to time HEENT normocephalic and head/scalp atraumatic Head and Scalp: normal to inspection, normocephalic and atraumatic External Ear: external ears normal Eyes PERRL and EOMs intact bilaterally General Eye: normal appearance of both eyes Resp normal respiratory effort, normal air movement, no retractions and no use of accessory muscles Effort and Inspection: able to speak in complete sentences Extremity no calf tenderness General Extremity: Negative for clubbing or cyanosis Skin Wound Narrative: Slight swelling and edema are noted in the patient's right lower extremity. Mild hyperpigmentation is also noted in the right gaiter area. The ulceration on the right pretibial area is much smaller in size. It is nearly totally healed. Dimensions are documented elsewhere. There is a small amount of bioburden. There is no sign of infection or cellulitis. Neuro oriented x3 and CN's II-XII intact bilaterally Sensorium / Orientation: awake, alert, oriented to person, oriented to place and oriented to time Psych Appearance: grossly normal and appropriate Attitude: calm Activity / Motor Behavior: appropriate eye contact Speech: normal speech Mood & Affect: euthymic mood Thought Process: normal thought process Thought Content: normal thought content Attention / Concentration: attention grossly intact Debridement Note Debridement Note Wound debrided: Right pretibial area Laterality: Right Type of Debridement: Excisional debridement Depth: Down to and including healthy tissue and in the subcutaneous layer Percentage of wound debrided: 100 Instrument Used: 5mm curette Tissue Removed: Bioburden Severity: Fat Layer Exposed Amount of bleeding with debridement: Mild Bleeding Controlled with: Compression and gauze Patient tolerated procedure: Patient tolerated procedure well Post-Debridement Measurements and Additional Note: Post-Debridement Measurements/Treatment - Nurse 1 - General Ulcer Assessment Start: 10/07/21 07:57 Freq: Status: Active Protocol: JUSTINE Activity Type Activity Date Activity User E-Sign Co-Sign Detail Recorded Client Recorded Date Recorded By Document 10/07/21 07:57 [facility] [id number] 10/07/21 08:06 [facility] 10/07/21 07:57 - Today's Visit Information Type of service 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 ) Arrival Mode Ambulatory Transfer Assistance None Patient Identification Verified (Name & Yes ) Patient Requires Transmission-Based No Precautions Height and Weight Body Mass Index (BMI) 48.7 BMI Classification Obese Vital Signs Temperature (97.8 F-99.1 F) 97.1 F L Temperature Source Temporal Pulse Rate (60-100) 70 Pulse Location Monitor Respiratory Rate (12-18) 18 Respiratory rate source Observation Oxygen Delivery Method Room Air Blood Pressure (90/60-120/80) 172/79 H Blood Pressure Mean 110 Source Monitor Position Sitting Blood Pressure Location Left Arm History Since Last Visit- (Skip if this is Patient's initial visit) Have you changed medications since your No last visit? Any new allergies or adverse reactions No Had a fall/change in ADL's that may No increase risk of falls Signs or symptoms of abuse and/or No neglect since last visit Have you been in the hospital since your No last visit? Has dressing in place as prescribed Yes Has compression in place as prescribed Yes Has offloadiing in place as prescribed N/A Experienced any changes in pain level or No management Left Footwear Regular Shoe Right Footwear Regular Shoe Pain Scale: 0-10 Numeric Is Patient Pain Free? Yes - Nurse 1 - General Ulcer Measurement Start: 10/07/21 07:57 Freq: Status: Active Protocol: Activity Type Activity Date Activity User E-Sign Co-Sign Detail Recorded Client Recorded Date Recorded By Document 10/07/21 07:57 [facility] [id number] 10/07/21 08:06 [facility] 10/07/21 07:57 Wound Center Nurse 1 #1 RLE Cluster -Combined with other wound No -Current Size (cm) - Length 0.5 -Current Size (cm) - Width 0.6 -Current Size (cm) - Depth 0.1 -Total Square Cm 0.30 -Photo Taken No -Epithelialization None Present -Tunneling No -Undermining/Tunneling No -Circular Undermining No -Exudate Amt Small -Exudate Type Serosanguineous -Wound Margin Distinct, Outline Attached -Granulation Amt None Present (0 %) -Slough/Fibrin Yes -Necrosis Amt Large (67-100%) -Necrotic Tissue Type Eschar -Texture (Earlene-wound Skin Appearance) Assessed, Scarring -Moisture (Earlene-wound Skin Appearance) Assessed -Color (Earlene-wound Skin Appearance) Assessed -Temperature (Earlene-wound Skin No Abnormality Appearance) (Pt Warm) -Tenderness on Palpation (Earlene-wound No Skin Appearance) -Ulcer Cleansing Rinsed/ Irrigated with Saline -Foul Odor after Cleansing No -Anesthetic Used 5% Lidocaine Gel Lower Limb Edema Present Yes Right Calf (cm) 48.8 Right Ankle (cm) 28.5 Left Calf (cm) 48.1 Left Ankle (cm) 28.4 Assessment/Plan Assessment/Plan (1) Venous stasis ulcer: CODE(S): I83.009 - Varicose veins of unspecified lower extremity with ulcer of unspecified site; L97.909 - Non-pressure chronic ulcer of unspecified part of unspecified lower leg with unspecified severity QUALIFIERS: Venous stasis ulcer site: calf Varicose vein presence: without varicose veins Laterality: right Non-pressure ulcer stage: limited to breakdown of skin Qualified Code(s): I87.2 - Venous insufficiency (chronic) (peripheral); L97.211 - Non-pressure chronic ulcer of right calf limited to breakdown of skin (2) Venous hypertension, chronic, with ulcer and inflammation: CODE(S): I87.339 - Chronic venous hypertension (idiopathic) with ulcer and inflammation of unspecified lower extremity; L97.909 - Non-pressure chronic ulcer of unspecified part of unspecified lower leg with unspecified severity QUALIFIERS: Laterality: right Qualified Code(s): I87.331 - Chronic venous hypertension (idiopathic) with ulcer and inflammation of right lower extremity; L97.919 - Non-pressure chronic ulcer of unspecified part of right lower leg with unspecified severity (3) Leg swelling: CODE(S): M79.89 - Other specified soft tissue disorders (4) Leg pain: CODE(S): M79.606 - Pain in leg, unspecified QUALIFIERS: Laterality: bilateral Qualified Code(s): M79.604 - Pain in right leg; M79.605 - Pain in left leg (5) Hyperlipidemia: CODE(S): E78.5 - Hyperlipidemia, unspecified (6) Hypertension: CODE(S): I10 - Essential (primary) hypertension (7) Lipodermatosclerosis: CODE(S): I83.10 - Varicose veins of unspecified lower extremity with inflammation QUALIFIERS: Laterality: bilateral Qualified Code(s): I83.11 - Varicose veins of right lower extremity with inflammation; I83.12 - Varicose veins of left lower extremity with inflammation (8) Hyperpigmentation: CODE(S): L81.9 - Disorder of pigmentation, unspecified (9) Morbid obesity: CODE(S): E66.01 - Morbid (severe) obesity due to excess calories (10) Venous hypertension, chronic, with inflammation: CODE(S): I87.329 - Chronic venous hypertension (idiopathic) with inflammation of unspecified lower extremity QUALIFIERS: Laterality: right Qualified Code(s): I87.321 - Chronic venous hypertension (idiopathic) with inflammation of right lower extremity (11) Chronic venous insufficiency: CODE(S): I87.2 - Venous insufficiency (chronic) (peripheral) PLAN: This is a 51-year-old male with a longstanding history of chronic venous insufficiency, venous hypertension with inflammation, leg pain, and leg swelling in his lower extremities. He presented with an ulceration in the right lower extremity, which is recurrent. He has had prior ulcerations in the past. 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 He is morbidly obese. We are to continue a regimen of conservative treatment measures, which is to include leg elevation, avoidance of idle standing and sitting, active lifestyle, etc. The patient has obtained graduated compression stockings of 20 to 30 mmHg, knee-high length. He is to wear these on a daily basis bilaterally. Promogran will be applied topically to the ulcerations in the pretibial areas bilaterally. The patient has been advised that leg elevation should be to heart level, or higher, as much as possible. Weight loss has been recommended. The patient is to return in 2 weeks for reassessment. A venous duplex examination was recently performed, which revealed incompetence of the right great saphenous vein, the right small saphenous vein, and the right accessory saphenous vein in the distal thigh. We have again discussed the potential role of endovenous laser ablation of the incompetent superficial veins in the right lower extremity, a matter which may be considered in more detail in the future, depending on the patient's clinical course henceforth. Total time 29 minutes.
[2021-10-21 07:57] VITALS: BP 163/63; PULSE 68; TEMP 36.2; BMI 48.7
--- NOTE | 2021-10-21 15:04 | HP.PCM_ITS ---
History of Present Illness Date of Service: 10/21/21 Chief Complaint: Venous stasis ulceration, right pretibial area History of Wound: This is a 51-year-old male with a longstanding history of chronic venous disease. He presented with a superficial venous stasis ulceration on the right pretibial area. It has been present for only 1 to 2 weeks. He has had ulcerations and cellulitis in this area in the past. He had been using Xeroform topically, and was referred by his nurse practitioner in [place], [place]. The patient is morbidly obese. He denies a history of deep vein thrombosis in the past. He claims to sleep on a flat mattress at night. 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 He possesses compression stockings, which were obtained [id number], and has been noncompliant with their use. He experiences pain and swelling in his lower extremities, which has been chronic. [facility] Medical History Chronic venous insufficiency Hyperlipidemia Hyperpigmentation Hypertension Leg pain Leg swelling Lipodermatosclerosis Morbid obesity Venous hypertension, chronic, with inflammation Venous hypertension, chronic, with ulcer and inflammation Venous stasis ulcer Home Medications furosemide 40 mg PO BID 06/24/21 [History Last Taken Unknown] lansoprazole 30 mg PO DAILY 06/24/21 [History Last Taken Unknown] losartan 100 mg PO DAILY 06/24/21 [History Last Taken Unknown] pravastatin 10 mg PO DAILY 06/24/21 [History Last Taken Unknown] Surgical History H/O umbilical hernia repair 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 Smoking Status: Never smoker details: The patient denies use of alcohol Vital Signs Vital Signs Vital Signs: 10/21/21 07:57 Temperature 97.2 F L Temperature Source Temporal Pulse Rate 68 Blood Pressure 163/63 H Blood Pressure Mean 96 Blood Pressure Source Monitor Weight Weight: 330 lb Body Mass Index (BMI) 48.7 Physical Exam Const alert, oriented x3, no apparent distress and well nourished General Appearance: cooperative and well developed Orientation / Consciousness: awake, oriented to person, oriented to place and oriented to time HEENT normocephalic and head/scalp atraumatic Head and Scalp: normal to inspection, normocephalic and atraumatic External Ear: external ears normal Eyes PERRL and EOMs intact bilaterally General Eye: normal appearance of both eyes Resp normal respiratory effort, normal air movement, no retractions and no use of accessory muscles Effort and Inspection: able to speak in complete sentences Extremity no calf tenderness Extremity Narrative: Chronic venous changes are noted in the patient's right lower extremity. These include hyperpigmentation and lipodermatosclerosis. General Extremity: Negative for clubbing or cyanosis Skin Wound Narrative: The ulceration on the right pretibial area is now completely healed and epithelialized. Neuro oriented x3 and CN's II-XII intact bilaterally Sensorium / Orientation: awake, alert, oriented to person, oriented to place and oriented to time Psych Appearance: grossly normal and appropriate Attitude: calm Activity / Motor Behavior: appropriate eye contact Speech: normal speech Mood & Affect: euthymic mood Thought Process: normal thought process Thought Content: normal thought content Attention / Concentration: attention grossly intact Debridement Note Debridement Note No debridement was completed: No debridement was completed today Assessment/Plan Assessment/Plan (1) Chronic venous insufficiency: CODE(S): I87.2 - Venous insufficiency (chronic) (peripheral) (2) Venous hypertension, chronic, with inflammation: CODE(S): I87.329 - Chronic venous hypertension (idiopathic) with inflammation of unspecified lower extremity QUALIFIERS: Laterality: right Qualified Code(s): I87.321 - Chronic venous hypertension (idiopathic) with inflammation of right lower extremity (3) Leg swelling: CODE(S): M79.89 - Other specified soft tissue disorders (4) Leg pain: CODE(S): M79.606 - Pain in leg, unspecified QUALIFIERS: Laterality: bilateral Qualified Code(s): M79.604 - Pain in right leg; M79.605 - Pain in left leg (5) Venous hypertension, chronic, with ulcer and inflammation: CODE(S): I87.339 - Chronic venous hypertension (idiopathic) with ulcer and inflammation of unspecified lower extremity; L97.909 - Non-pressure chronic ulcer of unspecified part of unspecified lower leg with unspecified severity QUALIFIERS: Laterality: right Qualified Code(s): I87.331 - Chronic venous hypertension (idiopathic) with ulcer and inflammation of right lower extremity; L97.919 - Non-pressure chronic ulcer of unspecified part of right lower leg with unspecified severity (6) Hyperlipidemia: CODE(S): E78.5 - Hyperlipidemia, unspecified (7) Hypertension: CODE(S): I10 - Essential (primary) hypertension (8) Lipodermatosclerosis: CODE(S): I83.10 - Varicose veins of unspecified lower extremity with inflammation QUALIFIERS: Laterality: bilateral Qualified Code(s): I83.11 - Varicose veins of right lower extremity with inflammation; I83.12 - Varicose veins of left lower extremity with inflammation (9) Hyperpigmentation: CODE(S): L81.9 - Disorder of pigmentation, unspecified (10) Morbid obesity: CODE(S): E66.01 - Morbid (severe) obesity due to excess calories (11) Venous stasis ulcer: CODE(S): I83.009 - Varicose veins of unspecified lower extremity with ulcer of unspecified site; L97.909 - Non-pressure chronic ulcer of unspecified part of unspecified lower leg with unspecified severity QUALIFIERS: Venous stasis ulcer site: calf Varicose vein presence: without varicose veins Laterality: right Non-pressure ulcer stage: limited to breakdown of skin Qualified Code(s): I87.2 - Venous insufficiency (chronic) (peripheral); L97.211 - Non-pressure chronic ulcer of right calf limited to breakdown of skin PLAN: This is a 51-year-old male with a longstanding history of chronic venous insufficiency, venous hypertension with inflammation, leg pain, and leg swelling in his lower extremities. He presented with an ulceration in the right lower extremity, which is recurrent. He has had prior ulcerations in the past. As of today, his right lower extremity venous ulceration is completely healed and epithelialized. Therefore, the patient is to be discharged. He is to continue wearing graduated compression stockings of 20 to 30 mmHg compression, knee-high length. Alternatively, he also owns [employer]id Velcro compression garments. These are to be worn daily. Patient is to elevate his lower extremities as much as possible. Elevation is to be to heart level, or higher. Activity has been encouraged. Prolonged idle sitting and standing has been discouraged. Weight control measures have been encouraged. The use of anti- inflammatory medications has been recommended for the pain and discomfort associated with the patient's lower extremity venous disease. The patient will be discharged, and will follow-up henceforth on an as-needed basis at our wound healing facility. The patient has been instructed to follow-up in my office in November 2021 for additional discussion regarding the potential role of endovenous ablation of the incompetent superficial veins in his lower extremities. A venous duplex examination was recently performed, which revealed incompetence of the right great saphenous vein, the right small saphenous vein, and the right accessory saphenous vein in the distal thigh. We have again discussed the potential role of endovenous laser ablation of the incompetent superficial veins in the right lower extremity, a matter which may be considered in more detail in the future. Total time 28 minutes.
== END 2021-10-21 11:05 | disposition home or self-care (01) ==
LOC: WC 08:00
PROVIDERS: PCP Nurse Practitioner Family; Visit Provider Surgery
DX: I87.331 Chronic venous hypertension (idiopathic) with ulcer and inflammation of right lower extremity (principal); L97.212 Non-pressure chronic ulcer of right calf with fat layer exposed; E66.01 Morbid (severe) obesity due to excess calories; Z91.19 Patient's noncompliance with other medical treatment and regimen; E78.5 Hyperlipidemia, unspecified; I10 Essential (primary) hypertension; Z79.899 Other long term (current) drug therapy; Z68.42 Body mass index [BMI] 45.0-49.9, adult; M79.89 Other specified soft tissue disorders
CPT/HCPCS: 11042; 99213; G0463

== ENCOUNTER → 2022-07-15 | Outpatient (CLI) | payer BC, SELFPAY ==
--- NOTE | 2022-07-15 13:04 | US_ITS ---
INDICATION: MASS OF LEFT INGUINAL REGION EXAMINATION: Limited sonographic evaluation of the left inguinal region. HISTORY: 52-year-old male with a palpable lump in the left inguinal region. TECHNIQUE: Routine and color imaging of the left inguinal region. FINDINGS: No evidence of subcutaneous soft tissue swelling, no evidence of fluid collection is seen. Well-circumscribed ovoid mass is visualized demonstrating well-circumscribed smooth surface with central hyperechoic echogenicity consistent with benign lymph nodes. 3 benign-appearing lymph nodes visualized measuring 1.3 x 3.3 x 1.5 cm, 3.2 x 1.6 x 1.3 cm and 1.2 x 1.5 x 0.8 cm. US/Ext Non Vasc Limited/Soft Tiss IMPRESSION: 3 prominent benign-appearing lymph nodes visualized in the left inguinal region at the location of the palpable lumps. Electronically Signed: Rodney Brar MD at 16:41 EDT ,
== END | disposition home or self-care (01) ==
LOC: US 13:01
PROVIDERS: PCP Nurse Practitioner Family; Visit Provider Nurse Practitioner Family
DX: R59.0 Localized enlarged lymph nodes (principal)
CPT/HCPCS: 76882

== ENCOUNTER → 2022-10-19 | Outpatient (CLI) | payer BC, SELFPAY ==
--- NOTE | 2022-10-19 09:31 | ART_ITS ---
Reason For Study: Bilateral leg vascular insufficiency Procedure A bilateral lower extremity continuous wave Doppler with analog waveform analysis and ankle brachial indexes. Left Segmental Pressures Left brachial= 109mmHg. Left posterior tibial artery = 127mmHg. Left dorsalis pedis artery = 134mmHg. Left digit = 94 mmHg. The left dorsalis pedis waveforms are triphasic. The left posterior tibial artery waveforms are triphasic. Right Segmental Pressures Right brachial= 119mmHg. Right posterior tibial artery = 137mmHg. Right dorsalis pedis artery = 125mmHg. Right digit = 118 mmHg. The right dorsalis pedis waveforms are triphasic. The right posterior tibial artery waveforms are triphasic. Indices The right ankle brachial index by the dorsalis pedis is 1.05. The right ankle brachial index by the posterior tibial artery is 1.15. The right digital-brachial index is 0.99. The left ankle brachial index by the dorsalis pedis is 1.13. The left ankle brachial index by the posterior tibial artery is 1.07. The left digital-brachial index is 0.79. VL/Ankle Brachial Index Interpretation Summary Triphasic Doppler waveforms are noted at ankle level bilaterally. Pulse-volume recordings appear satisfactory at ankle and digital levels bilaterally. Resting ankle-brachial in dices are normal bilaterally. Digital-brachial indices are normal bilaterally. There is no evidence of significant arterial occlusive disease in the lower ext remities bilaterally. Ordering Physician: Roger Geller Referring Physician: Roger Geller Performed By: Jennifer Enriquez RVEdouard
== END | disposition home or self-care (01) ==
LOC: CVS 09:29
PROVIDERS: PCP Nurse Practitioner Family; Visit Provider Nurse Practitioner Family
DX: I73.9 Peripheral vascular disease, unspecified (principal); I10 Essential (primary) hypertension
CPT/HCPCS: 93922

== ENCOUNTER 2023-03-23 08:15 | Outpatient (RCR) | payer BC, SELFPAY ==
[2023-03-02 08:05] VITALS: BP 132/69; PULSE 61; TEMP 36.6; BMI 50.3
--- NOTE | 2023-03-02 14:25 | PCM.WC.HP ---
History of Present Illness Date of Service: 03/02/23 Chief Complaint: Venous stasis dermatitis with swelling and edema in the left lower extremity History of Wound: This is a 52-year-old male with a longstanding history of chronic venous disease. He has previously been treated at this facility for a venous stasis ulceration in the right lower extremity. He presented on this occasion with venous stasis dermatitis in the left lower extremity, associated with swelling and edema. The dermatitic changes, swelling, and edema in the left lower extremity have been present for nearly 1 year. He is currently taking doxycycline 100 mg p.o. twice daily, as prescribed by his primary care physician. He is using Xeroform topically. The patient is morbidly obese. He denies a history of deep vein thrombosis in the past. He claims to sleep on a flat mattress at night. 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 He possesses CircAid Velcro compression garments, which are in suitable condition, in which she claims to wear on a daily basis. A venous duplex examination performed on July 08, 2021, revealed incompetence of the right great saphenous vein, right small saphenous vein, right accessory saphenous vein in the distal thigh, left great saphenous vein, and left small saphenous vein. FOR[facility], [facility] Medical History Chronic venous hypertension with inflammation involving left side Chronic venous insufficiency Hyperlipidemia Hyperpigmentation Hypertension Leg pain Leg swelling Lipodermatosclerosis Morbid obesity Venous hypertension, chronic, with inflammation Venous hypertension, chronic, with ulcer and inflammation Venous stasis dermatitis of left lower extremity Venous stasis ulcer Home Medications furosemide 40 mg tablet 40 mg PO BID 06/24/21 [History Last Taken Unknown] lansoprazole 30 mg capsule,delayed release 30 mg PO DAILY 06/24/21 [History Last Taken Unknown] losartan 100 mg tablet 100 mg PO DAILY 06/24/21 [History Last Taken Unknown] pravastatin 10 mg tablet 10 mg PO DAILY 06/24/21 [History Last Taken Unknown] aspirin 81 mg tablet,delayed release mg 03/02/23 [History Last Taken Unknown] doxycycline hyclate 100 mg tablet 100 mg PO DAILY 03/02/23 [History Last Taken Unknown] Allergy/AdvReac Type Severity Reaction Status Date / Time No Known Allergies Allergy Verified 03/02/23 08:30 Surgical History H/O umbilical hernia repair Social History 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 General Appearance: cooperative, comfortable, well kempt and well developed Orientation / Consciousness: awake, oriented to person, oriented to place and oriented to time HEENT normocephalic, head/scalp atraumatic and hearing grossly normal bilaterally Head and Scalp: normal to inspection, normocephalic and atraumatic External Ear: external ears normal Eyes PERRL and EOMs intact bilaterally General Eye: normal appearance of both eyes Resp normal respiratory effort, normal air movement, no retractions and no use of accessory muscles Effort and Inspection: able to speak in complete sentences Extremity no calf tenderness Extremity Narrative: Chronic venous changes are noted in the patient's right lower extremity. These include hyperpigmentation and lipodermatosclerosis. General Extremity: Negative for clubbing or cyanosis Skin Wound Narrative: Mild swelling and edema are noted in the lower extremities bilaterally. Hyperpigmentation and lipodermatosclerosis are noted in the right gaiter area. In the left gaiter area, a diffuse venous stasis dermatitis is noted. There are no sizable wounds or ulcerations in the left lower extremity. Neuro oriented x3, CN's II-XII intact bilaterally and moves all extremities Sensorium / Orientation: awake, alert, oriented to person, oriented to place and oriented to time Psych Appearance: grossly normal and appropriate Attitude: calm Activity / Motor Behavior: appropriate eye contact Speech: normal speech Mood & Affect: euthymic mood Thought Process: normal thought process Thought Content: normal thought content Attention / Concentration: attention grossly intact Debridement Note Debridement Note No debridement was completed: No debridement was completed today (There are no open wounds or ulcerations.) Post-Debridement Measurements and Additional Note: Post-Debridement Measurements/Treatment WC - Nurse 1 - General Ulcer Assessment Start: 03/02/23 08:03 Freq: Status: Active Protocol: JUSTINE Activity Type Activity Date Activity User E-sign Co-sign Detail Recorded Client Recorded Date Recorded By Document 03/02/23 08:05 DL [id number] 03/02/23 08:28 DL 03/02/23 08:05 WC - Today's Visit Information Type of service Nurse-only Visit Arrival Mode Ambulatory Transfer Assistance None Patient Identification Verified (Name & Yes ) Patient Requires Transmission-Based No Precautions Height and Weight Height 5 ft 9 in Weight 340 lb 9.146 oz Weight in Pounds 340.6 lbs Body Mass Index (BMI) 50.3 BMI Classification Obese BSA - Priscilla 2.59 Vital Signs Temperature (97.8 F-99.1 F) 97.8 F Temperature Source Temporal Pulse Rate (60-100) 61 Pulse Location Monitor Blood Pressure (90/60-120/80) 132/69 H Blood Pressure Mean 90 Source Monitor History Since Last Visit- (Skip if this is Patient's initial visit) Left Footwear Regular Shoe Right Footwear Regular Shoe Pain Scale: 0-10 Numeric Is Patient Pain Free? Yes Lower Extremity Assessment/ Foot Assessment/ Toe Nail Assessment Left -Posterior Tibial Palpable No -Dorsalis Pedis Palpable Yes -Extremity Color Hyperpigmented, Hemosiderin -Hair Growth on Legs No -Hair Growth on Toes No -Capillary Refill Greater than 3 Seconds -Dependent Rubor No -Blanched when Elevated No -Lipodermatosclerosis No -Other Deformity No -Prior Foot Ulcer No -Charcot Joint No -Prior Amputation No -Thick Yes -Discolored Yes -Deformed Yes -Improper Length & Hygeine Yes Right -Posterior Tibial Palpable No -Dorsalis Pedis Palpable Yes -Extremity Color Red,Hemosiderin -Hair Growth on Legs No -Hair Growth on Toes No -Temperature of Extremity Warm -Capillary Refill Greater than 3 Seconds -Dependent Rubor No -Blanched when Elevated No -Lipodermatosclerosis No -Other Deformity No -Prior Foot Ulcer No -Charcot Joint No -Prior Amputation No -Thick Yes -Discolored Yes -Deformed Yes -Improper Length & Hygeine Yes Neuropathy Assessment Feet - Top Side and Bottom <Entered> (a) Communication Assessment Preferred language Divehi Able to Read Yes Able to Write No Communication Tools None Right Hearing Abillity Normal Left Hearing Abillity Normal Visual Assistive Devices Glasses Teaching Assessment Preferences Verbal,Written, Demonstration Readiness To Learn Fair Willingness to Engage in Self Management Med Activies Readiness to Engage in Self Management Med Activities Anxiety Level Calm Cooperation Cooperative Perception Coherent Interest in Health Problem Asks Questions Education Importance Acknowledges Need Does Patient Smoke tobacco or other No substances Smoking Status Never smoker Is Patient Diabetic No Functional Assessment Recent Decline in Ability to Perform Denies Any Declines Culture/Nondenominational/Production Welding Supervisor Cultural/Nondenominational Needs that may affect No Treatment Plan Would you allow our hospital acidizer water well to No meet you for the purpose of spiritual/ emotional support? Production Welding Supervisor to contact place of mormonism No Teaching: Wound Center Discharge Instructions -Person Taught Patient Control Swelling with Leg Elevation -Person Taught Patient *Welcome to the Wound Center -Person Taught Patient Compression Wraps & Stockings -Person Taught Patient (a) 1 - + WC - Nurse 1 - General Ulcer Measurement Start: 03/02/23 08:03 Freq: Status: Active Protocol: Activity Type Activity Date Activity User E-sign Co-sign Detail Recorded Client Recorded Date Recorded By Document 03/02/23 08:05 DL [id number] 03/02/23 08:28 DL 03/02/23 08:05 Wound Center Nurse 1 #3 LLE Cluster -Current Size (cm) - Length 17 -Current Size (cm) - Width 33 -Current Size (cm) - Depth 0.1 -Total Square Cm 561 -Photo Taken Yes -Exudate Amt Medium -Exudate Type Serosanguineous -Wound Margin Indistinct, Non -Visible -Granulation Amt Large (67-100%) -Granulation Quality Red -Necrosis Amt None Present (0 %) -Structure Exposed N/A -Texture (Earlene-wound Skin Appearance) Excoriation, Localized Edema ,Scarring -Moisture (Earlene-wound Skin Appearance) Weeping -Color (Earlene-wound Skin Appearance) Erythema, Hemosiderin Staining -Temperature (Earlene-wound Skin No Abnormality Appearance) (Pt Warm) -Tenderness on Palpation (Earlene-wound No Skin Appearance) -Ulcer Cleansing Soap and Water -Foul Odor after Cleansing No -Anesthetic Used 4% Lidocaine Solution Right Calf (cm) 46 Right Ankle (cm) 28 Left Calf (cm) 48.5 Left Ankle (cm) 30 WC - Nurse 3 - General Ulcer D/C NN Start: 03/02/23 08:03 Freq: Status: Active Protocol: Activity Type Activity Date Activity User E-sign Co-sign Detail Recorded Client Recorded Date Recorded By Document 03/02/23 09:10 DL [id number] 03/02/23 09:11 DL 03/02/23 09:10 Wound Care Center Nurse 3 #3 LLE Cluster -Ulcer Cleansing Soap and Water -Foul Odor after Cleansing No -Other Dressing Unna Boot Left -Multi-Layered Wrap Application Unna Boot - Left ($) Treatment Response Procedure Tolerated Well Pain Scale: 0-10 Numeric Is Patient Pain Free? Yes WC - Visit Discharge Discharge Condition Stable Ambulatory Status Ambulatory Transportation Private Auto Assessment/Plan Assessment/Plan (1) Venous stasis dermatitis of left lower extremity: CODE(S): I87.2 - Venous insufficiency (chronic) (peripheral) (2) Chronic venous hypertension with inflammation involving left side: CODE(S): I87.322 - Chronic venous hypertension (idiopathic) with inflammation of left lower extremity (3) Leg swelling: CODE(S): M79.89 - Other specified soft tissue disorders (4) Chronic venous insufficiency: CODE(S): I87.2 - Venous insufficiency (chronic) (peripheral) (5) Lipodermatosclerosis: CODE(S): I83.10 - Varicose veins of unspecified lower extremity with inflammation QUALIFIERS: Laterality: bilateral Qualified Code(s): I83.11 - Varicose veins of right lower extremity with inflammation; I83.12 - Varicose veins of left lower extremity with inflammation (6) Leg pain: CODE(S): M79.606 - Pain in leg, unspecified QUALIFIERS: Laterality: bilateral Qualified Code(s): M79.604 - Pain in right leg; M79.605 - Pain in left leg (7) Hyperlipidemia: CODE(S): E78.5 - Hyperlipidemia, unspecified (8) Hypertension: CODE(S): I10 - Essential (primary) hypertension (9) Hyperpigmentation: CODE(S): L81.9 - Disorder of pigmentation, unspecified (10) Morbid obesity: CODE(S): E66.01 - Morbid (severe) obesity due to excess calories PLAN: Plan This is a 52-year-old male with a longstanding history of chronic venous disease. He has been previously treated at this facility by conservative means. In fact, endothermal venous ablation of superficial vein incompetence has been considered in the past, but the patient failed to follow through. The patient presents at this time with bilateral lower extremity swelling and edema, and venous stasis dermatitis in the left gaiter area. Hyperpigmentation and lipodermatosclerosis are noted in the right gaiter area. We have reinforced the importance of conservative treatment measures relative to the management of the patient's lower extremity symptoms and manifestations. He claims to sleep on a flat mattress at night. Leg elevation, to heart level or higher, has been encouraged even during daytime hours. Ambulation and activity has been encouraged. Prolonged idle sitting has been discouraged. 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 It has been recommended that the patient take at least 1 week off from work, so he can remain at home with his legs elevated. Weight loss has been recommended. We are to implement the use of Unna boots to the left lower extremity. These will be replaced on a twice weekly basis. The patient's CircAid Velcro compression garment will be continued on a daily basis to the right lower extremity. The patient is to return in 1 week for reassessment. We are to implement a conservative treatment approach in an effort to alleviate the venous stasis dermatitis in the left lower extremity. Conservative treatment measures will be required for the long-term. Patient is to be encouraged to lose weight voluntarily. Ultimately, we will consider repeating a venous duplex examination to determine the status of the superficial venous remedies. He is likely to be a candidate for endothermal venous ablation in the lower extremities, but weight loss will be encouraged as a prelude to any interventional management. Total time: 38 minutes.
[2023-03-04 13:24] VITALS: BP 164/53; PULSE 57; RESP 18; TEMP 35.7; BMI 50.3
[2023-03-09 08:12] VITALS: BP 134/53; PULSE 67; RESP 20; TEMP 36.5; BMI 50.3
--- NOTE | 2023-03-09 13:40 | HP.PCM_ITS ---
History of Present Illness Date of Service: 03/09/23 Chief Complaint: Venous stasis dermatitis with swelling and edema in the left lower extremity History of Wound: This is a 52-year-old male with a longstanding history of chronic venous disease. He has previously been treated at this facility for a v enous stasis ulceration in the right lower extremity. He presented on this occasion with venous stasis dermatitis in the left lower extremity, associated with swelling and edema. The dermatitic changes, swelling, and edema in the left lower extremity have been present for nearly 1 year. He is currently taking doxycycline 100 mg p.o. twice daily, as prescribed by his primary care physician. He is using Xeroform topically. The patient is morbidly obese. He denies a history of deep vein thrombosis in the past. He claims to sleep on a flat mattress at night. 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 He possesses CircAid Velcro compression garments, which are in suitable condition, in which she claims to wear on a daily basis. A venous duplex examination performed on July 08, 2021, revealed incompetence of the right great saphenous vein, right small saphenous vein, right accessory saphenous vein in the distal thigh, left great saphenous vein, and left small saphenous vein. [facility] Medical History Chronic venous hypertension with inflammation involving left side Chronic venous insufficiency Hyperlipidemia Hyperpigmentation Hypertension Leg pain Leg swelling Lipodermatosclerosis Morbid obesity Venous hypertension, chronic, with inflammation Venous hypertension, chronic, with ulcer and inflammation Venous stasis dermatitis of left lower extremity Venous stasis ulcer Home Medications furosemide 40 mg tablet 40 mg PO BID 06/24/21 [History Last Taken Unknown] lansoprazole 30 mg capsule,delayed release 30 mg PO DAILY 06/24/21 [History Last Taken Unknown] losartan 100 mg tablet 100 mg PO DAILY 06/24/21 [History Last Taken Unknown] pravastatin 10 mg tablet 10 mg PO DAILY 06/24/21 [History Last Taken Unknown] aspirin 81 mg tablet,delayed release mg 03/02/23 [History Last Taken Unknown] doxycycline hyclate 100 mg tablet 100 mg PO DAILY 03/02/23 [History Last Taken Unknown] Allergy/AdvReac Type Severity Reaction Status Date / Time No Known Allergies Allergy Verified 03/02/23 08:30 Surgical History H/O umbilical hernia repair Social History 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 General Appearance: cooperative, comfortable, well kempt and well developed Orientation / Consciousness: awake, oriented to person, oriented to place and oriented to time HEENT normocephalic, head/scalp atraumatic and hearing grossly normal bilaterally Head and Scalp: normal to inspection, normocephalic and atraumatic External Ear: external ears normal Eyes PERRL and EOMs intact bilaterally General Eye: normal appearance of both eyes Resp normal respiratory effort, normal air movement, no retractions and no use of accessory muscles Effort and Inspection: able to speak in complete sentences Extremity no calf tenderness Extremity Narrative: Chronic venous changes are noted in the patient's right lower extremity. These include hyperpigmentation and lipodermatosclerosis. General Extremity: Negative for clubbing or cyanosis Skin Wound Narrative: Mild swelling and edema are noted in the lower extremities bilaterally. However, the degree of swelling and edema has diminished. Hyperpigmentation and lipodermatosclerosis are noted in the right gaiter area. In the left gaiter area, venous stasis dermatitis is noted, though improved from previous assessments. There are no sizable wounds or ulcerations in the left lower extremity. Neuro oriented x3, CN's II-XII intact bilaterally and moves all extremities Sensorium / Orientation: awake, alert, oriented to person, oriented to place and oriented to time Psych Appearance: grossly normal and appropriate Attitude: calm Activity / Motor Behavior: appropriate eye contact Speech: normal speech Mood & Affect: euthymic mood Thought Process: normal thought process Thought Content: normal thought content Attention / Concentration: attention grossly intact Debridement Note Debridement Note No debridement was completed: No debridement was completed today (There are no open wounds or ulcerations.) Post-Debridement Measurements and Additional Note: Post-Debridement Measurements/Treatment WC - Nurse 1 - General Ulcer Assessment Start: 03/02/23 08:03 Freq: Status: Active Protocol: ELVER.CEM Activity Type Activity Date Activity User E-sign Co-sign Detail Recorded Client Recorded Date Recorded By Document 03/02/23 08:05 DL [id number] 03/02/23 08:28 DL Document 03/04/23 13:24 BMF [id number] 03/04/23 13:26 BMF Document 03/09/23 08:12 DL [id number] 03/09/23 08:21 DL 03/02/23 03/04/23 03/09/23 08:05 13:24 08:12 WC - Today's Visit Information Type of service Nurse-only Nurse-only Follow-up Visit Visit Visit (Physician/APARTMENT HOUSE MANAGER ) Arrival Mode Ambulatory Ambulatory Ambulatory Transfer Assistance None None None Patient Identification Verified (Name & Yes Yes Yes ) Patient Requires Transmission-Based No No Precautions Height and Weight Height 5 ft 9 in Weight 340 lb 9.146 oz Weight in Pounds 340.6 lbs Body Mass Index (BMI) 50.3 50.3 50.3 BMI Classification Obese Obese Obese BSA - Priscilla 2.59 Vital Signs Temperature (97.8 F-99.1 F) 97.8 F 96.3 F L 97.7 F L Temperature Source Temporal Temporal Temporal Pulse Rate (60-100) 61 57 L 67 Pulse Location Monitor Monitor Monitor Respiratory Rate (12-18) 18 20 H Respiratory rate source Observation Observation Oxygen Delivery Method Room Air Blood Pressure (90/60-120/80) 132/69 H 164/53 H 134/53 H Blood Pressure Mean 90 90 80 Source Monitor Monitor Monitor Position Sitting Blood Pressure Location Left Arm History Since Last Visit- (Skip if this is Patient's initial visit) Have you changed medications since your No No last visit? Any new allergies or adverse reactions No No Had a fall/change in ADL's that may No No increase risk of falls Signs or symptoms of abuse and/or No No neglect since last visit Have you been in the hospital since your No No last visit? Has dressing in place as prescribed Yes Yes Has compression in place as prescribed Yes Yes Has offloadiing in place as prescribed N/A N/A Experienced any changes in pain level or No No management Left Footwear Regular Shoe Regular Shoe Right Footwear Regular Shoe Regular Shoe Pain Scale: 0-10 Numeric Is Patient Pain Free? Yes Yes Yes Lower Extremity Assessment/ Foot Assessment/ Toe Nail Assessment Left -Posterior Tibial Palpable No -Dorsalis Pedis Palpable Yes -Extremity Color Hyperpigmented, Hemosiderin -Hair Growth on Legs No -Hair Growth on Toes No -Capillary Refill Greater than 3 Seconds -Dependent Rubor No -Blanched when Elevated No -Lipodermatosclerosis No -Other Deformity No -Prior Foot Ulcer No -Charcot Joint No -Prior Amputation No -Thick Yes -Discolored Yes -Deformed Yes -Improper Length & Hygeine Yes Right -Posterior Tibial Palpable No -Dorsalis Pedis Palpable Yes -Extremity Color Red,Hemosiderin -Hair Growth on Legs No -Hair Growth on Toes No -Temperature of Extremity Warm -Capillary Refill Greater than 3 Seconds -Dependent Rubor No -Blanched when Elevated No -Lipodermatosclerosis No -Other Deformity No -Prior Foot Ulcer No -Charcot Joint No -Prior Amputation No -Thick Yes -Discolored Yes -Deformed Yes -Improper Length & Hygeine Yes Neuropathy Assessment Feet - Top Side and Bottom <Entered> (a) Communication Assessment Preferred language [place] Able to Read Yes Able to Write No Communication Tools None Right Hearing Abillity Normal Left Hearing Abillity Normal Visual Assistive Devices Glasses Teaching Assessment Preferences Verbal,Written, Demonstration Readiness To Learn Fair Willingness to Engage in Self Management Med Activies Readiness to Engage in Self Management Med Activities Anxiety Level Calm Cooperation Cooperative Perception Coherent Interest in Health Problem Asks Questions Education Importance Acknowledges Need Does Patient Smoke tobacco or other No substances Smoking Status Never smoker Is Patient Diabetic No Functional Assessment Recent Decline in Ability to Perform Denies Any Declines Culture/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 Refrigeration Plant Cork Insulator to contact place of sikhism No Teaching: Wound Center Discharge Instructions -Person Taught Patient Control Swelling with Leg Elevation -Person Taught Patient *Welcome to the Wound Center -Person Taught Patient Compression Wraps & Stockings -Person Taught Patient (a) 1 - + WC - Nurse 1 - General Ulcer Measurement Start: 03/02/23 08:03 Freq: Status: Active Protocol: Activity Type Activity Date Activity User E-sign Co-sign Detail Recorded Client Recorded Date Recorded By Document 03/02/23 08:05 DL [id number] 03/02/23 08:28 DL Document 03/09/23 08:12 DL [id number] 03/09/23 08:21 DL 03/02/23 03/09/23 08:05 08:12 Wound Center Nurse 1 #3 LLE Cluster -Current Size (cm) - Length 17 18 -Current Size (cm) - Width 33 22 -Current Size (cm) - Depth 0.1 0.1 -Total Square Cm 561 396 -Photo Taken Yes No -Exudate Amt Medium Large -Exudate Type Serosanguineous Yellow/Green -Wound Margin Indistinct, Non Indistinct, Non -Visible -Visible -Granulation Amt Large (67-100%) Large (67-100%) -Granulation Quality Red Red -Necrosis Amt None Present (0 Small (1-33%) %) -Necrotic Tissue Type Adherent Slough -Structure Exposed N/A N/A -Texture (Earlene-wound Skin Appearance) Excoriation, Excoriation, Localized Edema Rash ,Scarring -Moisture (Earlene-wound Skin Appearance) Weeping Weeping -Color (Earlene-wound Skin Appearance) Erythema, Erythema, Hemosiderin Hemosiderin Staining Staining -Temperature (Earlene-wound Skin No Abnormality No Abnormality Appearance) (Pt Warm) (Pt Warm) -Tenderness on Palpation (Earlene-wound No No Skin Appearance) -Ulcer Cleansing Soap and Water Soap and Water -Foul Odor after Cleansing No -Anesthetic Used 4% Lidocaine 4% Lidocaine Solution Solution Right Calf (cm) 46 Right Ankle (cm) 28 Left Calf (cm) 48.5 46.6 Left Ankle (cm) 30 29.5 WC - Nurse 3 - General Ulcer D/C NN Start: 03/02/23 08:03 Freq: Status: Active Protocol: Activity Type Activity Date Activity User E-sign Co-sign Detail Recorded Client Recorded Date Recorded By Document 03/02/23 09:10 DL [id number] 03/02/23 09:11 DL Document 03/04/23 13:24 [facility] [id number] 03/04/23 13:26 [facility] Document 03/09/23 08:56 DL [id number] 03/09/23 08:57 DL 03/02/23 03/04/23 03/09/23 09:10 13:24 08:56 Wound Care Center Nurse 3 #3 LLE Cluster -Ulcer Cleansing Soap and Water Soap and Water -Foul Odor after Cleansing No No -Other Dressing Unna Boot unna boot Left -Multi-Layered Wrap Application Unna Boot - Unna Boot - Unna Boot - Left ($) Left ($) Left ($) Treatment Response Procedure Procedure Procedure Tolerated Well Tolerated Well Tolerated Well Vital Signs Temperature (97.8 F-99.1 F) 96.3 F L Temperature Source Temporal Pulse Rate (60-100) 57 L Pulse Location Monitor Respiratory Rate (12-18) 18 Respiratory rate source Observation Oxygen Delivery Method Room Air Blood Pressure (90/60-120/80) 164/53 H Blood Pressure Mean 90 Source Monitor Position Sitting Blood Pressure Location Left Arm Pain Scale: 0-10 Numeric Is Patient Pain Free? Yes Yes Yes WC - Visit Discharge Discharge Condition Stable Stable Stable Ambulatory Status Ambulatory Ambulatory Ambulatory Transportation Private Auto Private Auto Private Auto Assessment/Plan Assessment/Plan (1) Venous stasis dermatitis of left lower extremity: CODE(S): I87.2 - Venous insufficiency (chronic) (peripheral) (2) Chronic venous hypertension with inflammation involving left side: CODE(S): I87.322 - Chronic venous hypertension (idiopathic) with inflammation of left lower extremity (3) Leg swelling: CODE(S): M79.89 - Other specified soft tissue disorders (4) Chronic venous insufficiency: CODE(S): I87.2 - Venous insufficiency (chronic) (peripheral) (5) Lipodermatosclerosis: CODE(S): I83.10 - Varicose veins of unspecified lower extremity with inflammation QUALIFIERS: Laterality: bilateral Qualified Code(s): I83.11 - Varicose veins of right lower extremity with inflammation; I83.12 - Varicose veins of left lower extremity with inflammation (6) Leg pain: CODE(S): M79.606 - Pain in leg, unspecified QUALIFIERS: Laterality: bilateral Qualified Code(s): M79.604 - Pain in right leg; M79.605 - Pain in left leg (7) Hyperlipidemia: CODE(S): E78.5 - Hyperlipidemia, unspecified (8) Hypertension: CODE(S): I10 - Essential (primary) hypertension (9) Hyperpigmentation: CODE(S): L81.9 - Disorder of pigmentation, unspecified (10) Morbid obesity: CODE(S): E66.01 - Morbid (severe) obesity due to excess calories PLAN: Plan This is a 52-year-old male with a longstanding history of chronic venous disease. He has been previously treated at this facility by conservative means. In fact, endothermal venous ablation of superficial vein incompetence has been considered in the past, but the patient failed to follow through. The patient presents at this time with bilateral lower extremity swelling and edema, and venous stasis dermatitis in the left gaiter area. Hyperpigmentation and lipodermatosclerosis are noted in the right gaiter area. We have reinforced the importance of conservative treatment measures relative to the management of the patient's lower extremity symptoms and manifestations. He claims to sleep on a flat mattress at night. Leg elevation, to heart level or higher, has been encouraged even during daytime hours. Ambulation and activity has been encouraged. Prolonged idle sitting has been discouraged. 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 It has been recommended that the patient take at least 1 week off from work, so he can remain at home with his legs elevated. Unfortunately, the patient took only 3 days off from work, and now has returned to his job as a truck rental service attendant, typically driving out of state. Weight loss has been recommended. We are to continue the use of Unna boots to the left lower extremity. These will be replaced on a twice weekly basis. The patient's CircAid Velcro compression garment will be continued on a daily basis to the right lower extremity. The patient is to return in 2 weeks for reassessment. We are to implement a conservative treatment approach in an effort to alleviate the venous stasis dermatitis in the left lower extremity. Conservative treatment measures will be required for the long-term. The patient has been encouraged to lose weight voluntarily. We are to obtain a venous duplex examination to determine the status of the superficial venous system, in terms of patency and competence. He is likely to be a candidate for endothermal venous ablation in the lower extremities, but weight loss will be encouraged as a prelude to any interventional management. Total time: 25 minutes.
[2023-03-16 08:03] VITALS: BP 131/60; PULSE 64; RESP 20; TEMP 35.5; BMI 50.3
[2023-03-23 08:23] VITALS: BP 140/62; PULSE 75; RESP 20; TEMP 35.2; BMI 50.3
== END 2023-03-28 23:59 | disposition home or self-care (01) ==
LOC: WC 08:15
PROVIDERS: PCP Nurse Practitioner Family; Referring Provider Nurse Practitioner Family; Visit Provider Surgery
DX: I83.11 Varicose veins of right lower extremity with inflammation (principal); E66.01 Morbid (severe) obesity due to excess calories; Z68.43 Body mass index [BMI] 50.0-59.9, adult; I83.813 Varicose veins of bilateral lower extremities with pain; I83.12 Varicose veins of left lower extremity with inflammation; E78.5 Hyperlipidemia, unspecified; M79.605 Pain in left leg; M79.604 Pain in right leg; I10 Essential (primary) hypertension; Z79.82 Long term (current) use of aspirin; Z79.899 Other long term (current) drug therapy
CPT/HCPCS: 29580; 29581; 99213; G0463

== ENCOUNTER 2023-04-20 08:15 | Outpatient (RCR) | payer BC, SELFPAY ==
[2023-03-29 00:10] VITALS: BP 140/62; PULSE 75; RESP 20; TEMP 35.2; BMI 50.3
[2023-03-30 08:17] VITALS: BP 145/58; PULSE 68; RESP 20; TEMP 36.6; BMI 50.3
--- NOTE | 2023-03-30 08:37 | PCM.WC.HP ---
History of Present Illness Date of Service: 03/30/23 Chief Complaint: Venous stasis dermatitis with swelling and edema in the left lower extremity History of Wound: This is a 53-year-old male with a longstanding history of chronic venous disease. He has previously been treated at this facility for a venous stasis ulceration in the right lower extremity. He presented on this occasion with venous stasis dermatitis in the left lower extremity, associated with swelling and edema. The dermatitic changes, swelling, and edema in the left lower extremity have been present for nearly 1 year. He was treated with doxycycline 100 mg p.o. twice daily, as prescribed by his primary care physician. He was using Xeroform topically. The patient is morbidly obese. He denies a history of deep vein thrombosis in the past. He claims to sleep on a flat mattress at night. 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 He possesses CircAid Velcro compression garments, which are in suitable condition, in which he claimed to wear on a daily basis. A venous duplex examination performed on July 08, 2021, revealed incompetence of the right great saphenous vein, right small saphenous vein, right accessory saphenous vein in the distal thigh, left great saphenous vein, and left small saphenous vein. [facility] Medical History Chronic venous hypertension with inflammation involving left side Chronic venous insufficiency Hyperlipidemia Hyperpigmentation Hypertension Leg pain Leg swelling Lipodermatosclerosis Morbid obesity Venous hypertension, chronic, with inflammation Venous hypertension, chronic, with ulcer and inflammation Venous stasis dermatitis of left lower extremity Venous stasis ulcer Home Medications furosemide 40 mg tablet 40 mg PO BID 06/24/21 [History Last Taken Unknown] lansoprazole 30 mg capsule,delayed release 30 mg PO DAILY 06/24/21 [History Last Taken Unknown] losartan 100 mg tablet 100 mg PO DAILY 06/24/21 [History Last Taken Unknown] pravastatin 10 mg tablet 10 mg PO DAILY 06/24/21 [History Last Taken Unknown] aspirin 81 mg tablet,delayed release mg 03/02/23 [History Last Taken Unknown] doxycycline hyclate 100 mg tablet 100 mg PO DAILY 03/02/23 [History Last Taken Unknown] Allergy/AdvReac Type Severity Reaction Status Date / Time No Known Allergies Allergy Verified 03/02/23 08:30 Surgical History H/O umbilical hernia repair Social History 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 General Appearance: cooperative, comfortable, well kempt and well developed Orientation / Consciousness: awake, oriented to person, oriented to place and oriented to time HEENT normocephalic, head/scalp atraumatic and hearing grossly normal bilaterally Head and Scalp: normal to inspection, normocephalic and atraumatic External Ear: external ears normal Eyes PERRL and EOMs intact bilaterally General Eye: normal appearance of both eyes Resp normal respiratory effort, normal air movement, no retractions and no use of accessory muscles Effort and Inspection: able to speak in complete sentences Extremity no calf tenderness Extremity Narrative: Chronic venous changes are noted in the patient's right lower extremity. These include hyperpigmentation and lipodermatosclerosis. General Extremity: Negative for clubbing or cyanosis Skin Wound Narrative: Mild swelling and edema are noted in the lower extremities bilaterally. Hyperpigmentation and lipodermatosclerosis are noted in the right gaiter area. In the left gaiter area, venous stasis dermatitis is noted, with a large area of denuded epidermis. There is no obvious sign of infection or cellulitis. Neuro oriented x3, CN's II-XII intact bilaterally and moves all extremities Sensorium / Orientation: awake, alert, oriented to person, oriented to place and oriented to time Psych Appearance: grossly normal and appropriate Attitude: calm Activity / Motor Behavior: appropriate eye contact Speech: normal speech Mood & Affect: euthymic mood Thought Process: normal thought process Thought Content: normal thought content Attention / Concentration: attention grossly intact Debridement Note Debridement Note No debridement was completed: No debridement was completed today Post-Debridement Measurements and Additional Note: Post-Debridement Measurements/Treatment ELVER - Nurse 1 - General Ulcer Assessment Start: 03/30/23 08:17 Freq: Status: Active Protocol: JUSTINE Activity Type Activity Date Activity User E-sign Co-sign Detail Recorded Client Recorded Date Recorded By Document 03/30/23 08:17 DL [id number] 03/30/23 08:25 DL 03/30/23 08:17 WC - Today's Visit Information Type of service Follow-up Visit (Physician/NET DEVELOPMENT MANAGER ) Arrival Mode Ambulatory Transfer Assistance None Patient Identification Verified (Name & Yes ) Patient Requires Transmission-Based No Precautions Height and Weight Body Mass Index (BMI) 50.3 BMI Classification Obese Vital Signs Temperature (97.8 F-99.1 F) 97.8 F Temperature Source Temporal Pulse Rate (60-100) 68 Pulse Location Monitor Respiratory Rate (12-18) 20 H Respiratory rate source Observation Blood Pressure (90/60-120/80) 145/58 H Blood Pressure Mean 87 Source Monitor History Since Last Visit- (Skip if this is Patient's initial visit) Have you changed medications since your No last visit? Any new allergies or adverse reactions No Had a fall/change in ADL's that may No increase risk of falls Signs or symptoms of abuse and/or No neglect since last visit Have you been in the hospital since your No last visit? Has dressing in place as prescribed Yes Has compression in place as prescribed Yes Experienced any changes in pain level or No management Pain Scale: 0-10 Numeric Is Patient Pain Free? Yes - Nurse 1 - General Ulcer Measurement Start: 03/30/23 08:17 Freq: Status: Active Protocol: Activity Type Activity Date Activity User E-sign Co-sign Detail Recorded Client Recorded Date Recorded By Document 03/30/23 08:17 DL [id number] 03/30/23 08:25 DL 03/30/23 08:17 Wound Center Nurse 1 #3 LLE Cluster -Current Size (cm) - Length 18 -Current Size (cm) - Width 33.5 -Current Size (cm) - Depth 0.1 -Total Square Cm 603.0 -Photo Taken Yes -Exudate Amt Large -Exudate Type Serosanguineous -Wound Margin Indistinct, Non -Visible -Granulation Amt Medium (34-66%) -Granulation Quality [place] -Necrosis Amt Medium (34-66%) -Necrotic Tissue Type Adherent Slough -Structure Exposed N/A -Texture (Earlene-wound Skin Appearance) Excoriation, Scarring -Moisture (Earlene-wound Skin Appearance) Weeping -Color (Earlene-wound Skin Appearance) Erythema -Temperature (Earlene-wound Skin No Abnormality Appearance) (Pt Warm) -Ulcer Cleansing Soap and Water -Foul Odor after Cleansing No -Anesthetic Used 4% Lidocaine Solution Left Calf (cm) 45 Left Ankle (cm) 29 Assessment/Plan Assessment/Plan (1) Venous stasis dermatitis of left lower extremity: CODE(S): I87.2 - Venous insufficiency (chronic) (peripheral) (2) Chronic venous hypertension with inflammation involving left side: CODE(S): I87.322 - Chronic venous hypertension (idiopathic) with inflammation of left lower extremity (3) Leg swelling: CODE(S): M79.89 - Other specified soft tissue disorders (4) Chronic venous insufficiency: CODE(S): I87.2 - Venous insufficiency (chronic) (peripheral) (5) Lipodermatosclerosis: CODE(S): I83.10 - Varicose veins of unspecified lower extremity with inflammation QUALIFIERS: Laterality: bilateral Qualified Code(s): I83.11 - Varicose veins of right lower extremity with inflammation; I83.12 - Varicose veins of left lower extremity with inflammation (6) Leg pain: CODE(S): M79.606 - Pain in leg, unspecified QUALIFIERS: Laterality: bilateral Qualified Code(s): M79.604 - Pain in right leg; M79.605 - Pain in left leg (7) Hyperlipidemia: CODE(S): E78.5 - Hyperlipidemia, unspecified (8) Hypertension: CODE(S): I10 - Essential (primary) hypertension (9) Hyperpigmentation: CODE(S): L81.9 - Disorder of pigmentation, unspecified (10) Morbid obesity: CODE(S): E66.01 - Morbid (severe) obesity due to excess calories PLAN: Plan This is a 53-year-old male with a longstanding history of chronic venous disease. He has been previously treated at this facility by conservative means. In fact, endothermal venous ablation of superficial vein incompetence has been considered in the past, but the patient failed to follow through. The patient presents at this time with bilateral lower extremity swelling and edema, and venous stasis dermatitis in the left gaiter area. Hyperpigmentation and lipodermatosclerosis are noted in the right gaiter area. We have reinforced the importance of conservative treatment measures relative to the management of the patient's lower extremity symptoms and manifestations. He claims to sleep on a flat mattress at night. Leg elevation, to heart level or higher, has been encouraged even during daytime hours. Ambulation and activity has been encouraged. Prolonged idle sitting has been discouraged. 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 He drives 7 days/week, typically 5 to 6 hours each day. The demands of his job are counter to recommendations for leg elevation and avoidance of prolonged idle sitting. Weight loss has been recommended. Due to the large area of denuded skin in the left gaiter area, we are to transition to the use of Super Absorb dressings, which will be changed daily. The patient is to continue using his CircAid Velcro compression garments in the lower extremities bilaterally. Leg elevation and avoidance of prolonged idle sitting has again been encouraged. The patient is to return in 1 week for reassessment. Conservative treatment measures will be required for the long-term. The patient has been encouraged to lose weight voluntarily. We are to obtain a venous duplex examination to determine the status of the superficial venous system, in terms of patency and competence. He is likely to be a candidate for endothermal venous ablation in the lower extremities, but weight loss will be encouraged as a prelude to any interventional management. Total time: 26 minutes.
--- NOTE | 2023-04-05 07:52 | VDLE_ITS ---
Reason For Study: Wound RIGHT LEFT CFV is compressible, spontaneous, phasic, CFV is compressible, spontaneous, phasic, competent and demonstrates normal competent, and demonstrates normal augmentation. augmentation. FV is compressible, spontaneous, phasic, FV is compressible, spontaneous, phasic, competent and demonstrates normal competent and demonstrates normal augmentation. augmentation. POP V is compressible, spontaneous, phasic, POP V is compressible, spontaneous, phasic, competent and demonstrates normal competent and demonstrates normal augmentation. augmentation. T/P Trunk is compressible. T/P Trunk is compressible. PTV is compressible. PTV is compressible. RT PerV is compressible. LT PerV is compressible. SFJ is competent and measures 1.24 x 1.38 cm. SFJ is INCOMPETENT and measures 0.14 x 0.155 GSV proximal thigh measures 0.46 x 0.46 cm. cm. GSV at knee measures 0.43 x 0.44 cm. GSV proximal thigh measures 0.58 x 0.55 cm. GSV INCOMPETENT throughout for greater than GSV at knee measures 0.65 x 0.63 cm. 0.5 seconds. GSV INCOMPETENT throughout for greater than ASV distal thigh is INCOMPETENT for greater 0.5 seconds. than 0.5 seconds and measures 0.39 x 0.41 cm. SSV proximal calf is competent and measures ASV prox calf 1 is INCOMPETENT for greater 0.34 x 0.35 cm. than 0.5 seconds and measures 0.34 x 0.41 cm. ASV prox calf 2 is INCOMPETENT for greater than 0.5 seconds and measures 0.0.36 x 0.35 cm. SSV proximal calf is INCOMPETENT for greater than 0.5 seconds and measures 0.12 x 0.15 cm. Procedure This is a venous duplex using B-mode, color flow and spectral Doppler. Exam performed in department. Patient was scanned in reverse Trendelenburg position during reflux assessment. Left calf veins not visualized at distal calf due to wound and bandages. A preliminary report was called and/or faxed to . VL/Venous Duplex US - Jean Carlos Extrem Interpretation Summary Deep veins of the lower extremities are bilaterally patent and compressible seg mentally. There is no evidence of deep vein thrombosis on either side. Valvular competence appears in tact within the proximal deep venous systems bilaterally. The great saphenous veins appear bila terally patent and compressible segmentally. The right sapheno-femoral junction is competent . The left sapheno-femoral junction is incompetent . Segmental valvular incompetence is noted within the g reat saphenous veins bilaterally. The right small saphenous vein is patent and incompetent. The left small saphenous vein is patent and competent. An accessory saphenous vein in the right distal thigh, and two accessory saphenous veins in the right proximal calf, are incompetent. Ordering Physician: Rigo Harrington Referring Physician: Roger Geller Performed By: Jennifer Enriquez RVT
[2023-04-06 08:03] VITALS: BP 118/57; PULSE 59; RESP 22; TEMP 36.4; BMI 50.3
--- NOTE | 2023-04-06 08:31 | PCM.WC.HP ---
History of Present Illness Date of Service: 04/06/23 Chief Complaint: Venous stasis dermatitis with swelling and edema in the left lower extremity History of Wound: This is a 53-year-old male with a longstanding history of chronic venous disease. He has previously been treated at this facility for a venous stasis ulceration in the right lower extremity. He presented on this occasion with venous stasis dermatitis in the left lower extremity, associated with swelling and edema. The dermatitic changes, swelling, and edema in the left lower extremity have been present for nearly 1 year. He was treated with doxycycline 100 mg p.o. twice daily, as prescribed by his primary care physician. He was using Xeroform topically. The patient is morbidly obese. He denies a history of deep vein thrombosis in the past. He claims to sleep on a flat mattress at night. 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 He possesses CircAid Velcro compression garments, which are in suitable condition, in which he claimed to wear on a daily basis. A venous duplex examination performed on July 08, 2021, revealed incompetence of the right great saphenous vein, right small saphenous vein, right accessory saphenous vein in the distal thigh, left great saphenous vein, and left small saphenous vein. [facility] Medical History Chronic venous hypertension with inflammation involving left side Chronic venous insufficiency Hyperlipidemia Hyperpigmentation Hypertension Leg pain Leg swelling Lipodermatosclerosis Morbid obesity Venous hypertension, chronic, with inflammation Venous hypertension, chronic, with ulcer and inflammation Venous stasis dermatitis of left lower extremity Venous stasis ulcer Home Medications furosemide 40 mg tablet 40 mg PO BID 06/24/21 [History Last Taken Unknown] lansoprazole 30 mg capsule,delayed release 30 mg PO DAILY 06/24/21 [History Last Taken Unknown] losartan 100 mg tablet 100 mg PO DAILY 06/24/21 [History Last Taken Unknown] pravastatin 10 mg tablet 10 mg PO DAILY 06/24/21 [History Last Taken Unknown] aspirin 81 mg tablet,delayed release mg 03/02/23 [History Last Taken Unknown] doxycycline hyclate 100 mg tablet 100 mg PO DAILY 03/02/23 [History Last Taken Unknown] Allergy/AdvReac Type Severity Reaction Status Date / Time No Known Allergies Allergy Verified 03/02/23 08:30 Surgical History H/O umbilical hernia repair Social History 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 General Appearance: cooperative, comfortable, well kempt and well developed Orientation / Consciousness: awake, oriented to person, oriented to place and oriented to time HEENT normocephalic, head/scalp atraumatic and hearing grossly normal bilaterally Head and Scalp: normal to inspection, normocephalic and atraumatic External Ear: external ears normal Eyes PERRL and EOMs intact bilaterally General Eye: normal appearance of both eyes Resp normal respiratory effort, normal air movement, no retractions and no use of accessory muscles Effort and Inspection: able to speak in complete sentences Extremity no calf tenderness Extremity Narrative: Chronic venous changes are noted in the patient's right lower extremity. These include hyperpigmentation and lipodermatosclerosis. General Extremity: Negative for clubbing or cyanosis Skin Wound Narrative: Mild swelling and edema are noted in the lower extremities bilaterally. Hyperpigmentation and lipodermatosclerosis are noted in the right gaiter area. In the left gaiter area, venous stasis dermatitis is noted, with a large area of denuded epidermis. There is no obvious sign of infection or cellulitis. There has been no improvement since the patient's prior visit 1 week ago. Neuro oriented x3, CN's II-XII intact bilaterally and moves all extremities Sensorium / Orientation: awake, alert, oriented to person, oriented to place and oriented to time Psych Appearance: grossly normal and appropriate Attitude: calm Activity / Motor Behavior: appropriate eye contact Speech: normal speech Mood & Affect: euthymic mood Thought Process: normal thought process Thought Content: normal thought content Attention / Concentration: attention grossly intact Debridement Note Debridement Note No debridement was completed: No debridement was completed today Post-Debridement Measurements and Additional Note: Post-Debridement Measurements/Treatment WC - Nurse 1 - General Ulcer Assessment Start: 03/30/23 08:17 Freq: Status: Active Protocol: JUSTINE Activity Type Activity Date Activity User E-sign Co-sign Detail Recorded Client Recorded Date Recorded By Document 03/30/23 08:17 DL [id number] 03/30/23 08:25 DL Document 04/06/23 08:03 DL [id number] 04/06/23 08:12 DL 03/30/23 04/06/23 08:17 08:03 WC - Today's Visit Information Type of service Follow-up Visit Follow-up Visit (Physician/[employer]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 ) ) Arrival Mode Ambulatory Ambulatory Transfer Assistance None None Patient Identification Verified (Name & Yes Yes ) Patient Requires Transmission-Based No Precautions Height and Weight Body Mass Index (BMI) 50.3 50.3 BMI Classification Obese Obese Vital Signs Temperature (97.8 F-99.1 F) 97.8 F 97.6 F L Temperature Source Temporal Temporal Pulse Rate (60-100) 68 59 L Pulse Location Monitor Monitor Respiratory Rate (12-18) 20 H 22 H Respiratory rate source Observation Observation Blood Pressure (90/60-120/80) 145/58 H 118/57 L Blood Pressure Mean 87 77 Source Monitor Monitor History Since Last Visit- (Skip if this is Patient's initial visit) Have you changed medications since your No No last visit? Any new allergies or adverse reactions No No Had a fall/change in ADL's that may No No increase risk of falls Signs or symptoms of abuse and/or No No neglect since last visit Have you been in the hospital since your No No last visit? Has dressing in place as prescribed Yes Yes Has compression in place as prescribed Yes Yes Has offloadiing in place as prescribed N/A Experienced any changes in pain level or No No management Pain Scale: 0-10 Numeric Is Patient Pain Free? Yes Yes ELVER Quiñones Nurse 1 - General Ulcer Measurement Start: 03/30/23 08:17 Freq: Status: Active Protocol: Activity Type Activity Date Activity User E-sign Co-sign Detail Recorded Client Recorded Date Recorded By Document 03/30/23 08:17 DL [id number] 03/30/23 08:25 DL Document 04/06/23 08:03 DL [id number] 04/06/23 08:12 DL 03/30/23 04/06/23 08:17 08:03 Wound Center Nurse 1 #3 LLE Cluster -Current Size (cm) - Length 18 20 -Current Size (cm) - Width 33.5 32.5 -Current Size (cm) - Depth 0.1 0.1 -Total Square Cm 603.0 650.0 -Photo Taken Yes Yes -Exudate Amt Large Large -Exudate Type Serosanguineous Serosanguineous -Wound Margin Indistinct, Non Indistinct, Non -Visible -Visible -Granulation Amt Medium (34-66%) Large (67-100%) -Granulation Quality Lostant Red -Necrosis Amt Medium (34-66%) Small (1-33%) -Necrotic Tissue Type Adherent Slough Adherent Slough -Structure Exposed N/A N/A -Texture (Earlene-wound Skin Appearance) Excoriation, Excoriation, Scarring Rash -Moisture (Earlene-wound Skin Appearance) Weeping Weeping -Color (Earlene-wound Skin Appearance) Erythema Hemosiderin Staining -Temperature (Earlene-wound Skin No Abnormality Appearance) (Pt Warm) -Tenderness on Palpation (Earlene-wound No Skin Appearance) -Ulcer Cleansing Soap and Water Soap and Water -Foul Odor after Cleansing No No -Anesthetic Used 4% Lidocaine 4% Lidocaine Solution Solution Left Calf (cm) 45 47 Left Ankle (cm) 29 30.4 WC - Nurse 3 - General Ulcer D/C NN Start: 03/30/23 08:17 Freq: Status: Active Protocol: Activity Type Activity Date Activity User E-sign Co-sign Detail Recorded Client Recorded Date Recorded By Document 03/30/23 11:13 PL [id number] 03/30/23 11:15 PL 03/30/23 11:13 Wound Care Center Nurse 3 #3 LLE Cluster -Primary Dressing Applied Optilok 6.5x10 -Optilok 6.5x10 3 Left -Tubular Bandage Single Layer -Size of Tubigrip Used Size E -Size E ($) 1 Pain Scale: 0-10 Numeric Is Patient Pain Free? Yes WC - Visit Discharge Discharge Condition Stable Ambulatory Status Ambulatory Radiology Impression Venous Doppler Study 04/05/23 07:52 Interpretation Summary Deep veins of the lower extremities are bilaterally patent and compressible segmentally. There is no evidence of deep vein thrombosis on either side. Valvular competence appears intact within the proximal deep venous systems bilaterally. The great saphenous veins appear bilaterally patent and compressible segmentally. The right sapheno-femoral junction is competent . The left sapheno-femoral junction is incompetent . Segmental valvular incompetence is noted within the great saphenous veins bilaterally. The right small saphenous vein is patent and incompetent. The left small saphenous vein is patent and competent. An accessory saphenous vein in the right distal thigh, and two accessory saphenous veins in the right proximal calf, are incompetent. Ordering Physician: Riog Harrington Referring Physician: Roger Geller Performed By: Jennifer Enriquez RVT Assessment/Plan Assessment/Plan (1) Venous stasis dermatitis of left lower extremity: CODE(S): I87.2 - Venous insufficiency (chronic) (peripheral) (2) Chronic venous hypertension with inflammation involving left side: CODE(S): I87.322 - Chronic venous hypertension (idiopathic) with inflammation of left lower extremity (3) Leg swelling: CODE(S): M79.89 - Other specified soft tissue disorders (4) Chronic venous insufficiency: CODE(S): I87.2 - Venous insufficiency (chronic) (peripheral) (5) Lipodermatosclerosis: CODE(S): I83.10 - Varicose veins of unspecified lower extremity with inflammation QUALIFIERS: Laterality: bilateral Qualified Code(s): I83.11 - Varicose veins of right lower extremity with inflammation; I83.12 - Varicose veins of left lower extremity with inflammation (6) Leg pain: CODE(S): M79.606 - Pain in leg, unspecified QUALIFIERS: Laterality: bilateral Qualified Code(s): M79.604 - Pain in right leg; M79.605 - Pain in left leg (7) Hyperlipidemia: CODE(S): E78.5 - Hyperlipidemia, unspecified (8) Hypertension: CODE(S): I10 - Essential (primary) hypertension (9) Hyperpigmentation: CODE(S): L81.9 - Disorder of pigmentation, unspecified (10) Morbid obesity: CODE(S): E66.01 - Morbid (severe) obesity due to excess calories PLAN: Plan This is a 53-year-old male with a longstanding history of chronic venous disease. He has been previously treated at this facility by conservative means. In fact, endothermal venous ablation of superficial vein incompetence has been considered in the past, but the patient failed to follow through. The patient presented with bilateral lower extremity swelling and edema, and venous stasis dermatitis in the left gaiter area. Hyperpigmentation and lipodermatosclerosis are noted in the right gaiter area. We have reinforced the importance of conservative treatment measures relative to the management of the patient's lower extremity symptoms and manifestations. He claims to sleep on a flat mattress at night. Leg elevation, to heart level or higher, has been encouraged even during daytime hours. Ambulation and activity has been encouraged. Prolonged idle sitting has been discouraged. 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 He drives 7 days/week, typically 6 hours each day. The demands of his job are counter to recommendations for leg elevation and avoidance of prolonged idle sitting. Weight loss has been strongly recommended. Due to the large area of denuded skin in the left gaiter area, we are to transition to the use of Super Absorb dressings, which will be changed daily. Efforts are underway to assist the patient in procuring these dressings. The patient is to continue using his CircAid Velcro compression garments in the lower extremities bilaterally. Leg elevation and avoidance of prolonged idle sitting has again been encouraged. We are to implement the use of Silvadene to the denuded areas in the left gaiter area, which will be applied topically on a daily basis. The patient is to return in 2 weeks for reassessment. Conservative treatment measures will be required for the long-term. The patient has been encouraged to lose weight voluntarily. A venous duplex examination has been obtained, which reveals incompetence of the left great saphenous vein, but no other significant superficial incompetence in the left lower extremity. In the right lower extremity, the great saphenous vein, small saphenous vein, and 3 accessory saphenous veins are incompetent. The patient will likely ultimately be a candidate for endovenous laser ablation of the left great saphenous vein. However, weight loss prior to intervention is desirable, and the patient has been strongly encouraged to pursue this objective. Weight loss has been encouraged as a prelude to interventional management. Total time: 26 minutes.
[2023-04-20 08:09] VITALS: BP 148/69; PULSE 72; RESP 16; TEMP 35.9; BMI 50.3
--- NOTE | 2023-04-20 13:12 | PCM.WC.HP ---
History of Present Illness Date of Service: 04/20/23 Chief Complaint: Venous stasis dermatitis with swelling and edema in the left lower extremity History of Wound: This is a 53-year-old male with a longstanding history of chronic venous disease. He has previously been treated at this facility for a venous stasis ulceration in the right lower extremity. He presented on this occasion with venous stasis dermatitis in the left lower extremity, associated with swelling and edema. The dermatitic changes, swelling, and edema in the left lower extremity had been present for nearly 1 year. He was treated with doxycycline 100 mg p.o. twice daily, as prescribed by his primary care physician. He was using Xeroform topically. The patient is morbidly obese. He denies a history of deep vein thrombosis in the past. He claims to sleep on a flat mattress at night. 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 He possesses CircAid Velcro compression garments, which are in suitable condition, and which he claims to wear on a daily basis. A venous duplex examination performed on July 08, 2021, revealed incompetence of the right great saphenous vein, right small saphenous vein, right accessory saphenous vein in the distal thigh, left great saphenous vein, and left small saphenous vein. [facility] Medical History Chronic venous hypertension with inflammation involving left side Chronic venous insufficiency Hyperlipidemia Hyperpigmentation Hypertension Leg pain Leg swelling Lipodermatosclerosis Morbid obesity Venous hypertension, chronic, with inflammation Venous hypertension, chronic, with ulcer and inflammation Venous stasis dermatitis of left lower extremity Venous stasis ulcer Home Medications furosemide 40 mg tablet 40 mg PO BID 06/24/21 [History Last Taken Unknown] lansoprazole 30 mg capsule,delayed release 30 mg PO DAILY 06/24/21 [History Last Taken Unknown] losartan 100 mg tablet 100 mg PO DAILY 06/24/21 [History Last Taken Unknown] pravastatin 10 mg tablet 10 mg PO DAILY 06/24/21 [History Last Taken Unknown] aspirin 81 mg tablet,delayed release mg 03/02/23 [History Last Taken Unknown] doxycycline hyclate 100 mg tablet 100 mg PO DAILY 03/02/23 [History Last Taken Unknown] Allergy/AdvReac Type Severity Reaction Status Date / Time No Known Allergies Allergy Verified 03/02/23 08:30 Surgical History H/O umbilical hernia repair Social History 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 General Appearance: cooperative, comfortable, well kempt and well developed Orientation / Consciousness: awake, oriented to person, oriented to place and oriented to time HEENT normocephalic, head/scalp atraumatic and hearing grossly normal bilaterally Head and Scalp: normal to inspection, normocephalic and atraumatic External Ear: external ears normal Eyes PERRL and EOMs intact bilaterally General Eye: normal appearance of both eyes Resp normal respiratory effort, normal air movement, no retractions and no use of accessory muscles Effort and Inspection: able to speak in complete sentences Extremity no calf tenderness Extremity Narrative: Chronic venous changes are noted in the patient's right lower extremity. These include hyperpigmentation and lipodermatosclerosis. General Extremity: Negative for clubbing or cyanosis Skin Wound Narrative: Mild swelling and edema are noted in the lower extremities bilaterally. Hyperpigmentation and lipodermatosclerosis are noted in the right gaiter area. In the left gaiter area, venous stasis dermatitis is noted, with a large area of denuded epidermis. The denudation also extends to the dorsum of the patient's left foot. There is no obvious sign of infection or cellulitis. There has been little or no improvement since the patient's prior visit 1 week ago. Neuro oriented x3, CN's II-XII intact bilaterally, moves all extremities and no focal motor deficits Sensorium / Orientation: awake, alert, oriented to person, oriented to place and oriented to time Psych Appearance: grossly normal and appropriate Attitude: calm Activity / Motor Behavior: appropriate eye contact Speech: normal speech Mood & Affect: euthymic mood Thought Process: normal thought process Thought Content: normal thought content Attention / Concentration: attention grossly intact Debridement Note Debridement Note No debridement was completed: No debridement was completed today Post-Debridement Measurements and Additional Note: Post-Debridement Measurements/Treatment - Nurse 1 - General Ulcer Assessment Start: 03/30/23 08:17 Freq: Status: Active Protocol: JUSTINE Activity Type Activity Date Activity User E-sign Co-sign Detail Recorded Client Recorded Date Recorded By Document 03/30/23 08:17 DL [id number] 03/30/23 08:25 DL Document 04/06/23 08:03 DL [id number] 04/06/23 08:12 DL Document 04/20/23 08:09 [facility] [id number] 04/20/23 08:16 [facility] 03/30/23 04/06/23 04/20/23 08:17 08:03 08:09 - Today's Visit Information Type of service Follow-up Visit Follow-up Visit Follow-up Visit (Physician/MANIFEST/ORDER ORGANIZER PRINT ORDERS (Physician/MANIFEST/ORDER ORGANIZER PRINT ORDERS (Physician/MANIFEST/ORDER ORGANIZER PRINT ORDERS ) ) ) Arrival Mode Ambulatory Ambulatory Ambulatory Transfer Assistance None None None Patient Identification Verified (Name & Yes Yes Yes ) Patient Requires Transmission-Based No No Precautions Height and Weight Body Mass Index (BMI) 50.3 50.3 50.3 BMI Classification Obese Obese Obese Vital Signs Temperature (97.8 F-99.1 F) 97.8 F 97.6 F L 96.6 F L Temperature Source Temporal Temporal Temporal Pulse Rate (60-100) 68 59 L 72 Pulse Location Monitor Monitor Monitor Respiratory Rate (12-18) 20 H 22 H 16 Respiratory rate source Observation Observation Observation Blood Pressure (90/60-120/80) 145/58 H 118/57 L 148/69 H Blood Pressure Mean 87 77 95 Source Monitor Monitor Monitor Position Sitting Blood Pressure Location Right Arm History Since Last Visit- (Skip if this is Patient's initial visit) Have you changed medications since your No No No last visit? Any new allergies or adverse reactions No No No Had a fall/change in ADL's that may No No No increase risk of falls Signs or symptoms of abuse and/or No No No neglect since last visit Have you been in the hospital since your No No No last visit? Has dressing in place as prescribed Yes Yes Yes Has compression in place as prescribed Yes Yes Yes Has offloadiing in place as prescribed N/A N/A Experienced any changes in pain level or No No No management Left Footwear Regular Shoe Right Footwear Regular Shoe Pain Scale: 0-10 Numeric Is Patient Pain Free? Yes Yes Yes WC - Nurse 1 - General Ulcer Measurement Start: 03/30/23 08:17 Freq: Status: Active Protocol: Activity Type Activity Date Activity User E-sign Co-sign Detail Recorded Client Recorded Date Recorded By Document 03/30/23 08:17 DL [id number] 03/30/23 08:25 DL Document 04/06/23 08:03 DL [id number] 04/06/23 08:12 DL Document 04/20/23 08:09 [facility] [id number] 04/20/23 08:16 [facility] 03/30/23 04/06/23 04/20/23 08:17 08:03 08:09 Wound Center Nurse 1 #3 LLE Cluster -Combined with other wound No -Current Size (cm) - Length 18 20 28.5 -Current Size (cm) - Width 33.5 32.5 -Current Size (cm) - Depth 0.1 0.1 0.1 -Total Square Cm 603.0 650.0 -Date of Last Picture (Recall this 04/20/23 field) -Photo Taken Yes Yes Yes -Epithelialization None Present -Tunneling No -Undermining/Tunneling No -Circular Undermining No -Exudate Amt Large Large Medium -Exudate Type Serosanguineous Serosanguineous Serosanguineous -Wound Margin Indistinct, Non Indistinct, Non Flat & Intact -Visible -Visible -Granulation Amt Medium (34-66%) Large (67-100%) Large (67-100%) -Granulation Quality [place] Red Red -Slough/Fibrin Yes -Necrosis Amt Medium (34-66%) Small (1-33%) Small (1-33%) -Necrotic Tissue Type Adherent Slough Adherent Slough Adherent Slough -Structure Exposed N/A N/A -Texture (Earlene-wound Skin Appearance) Excoriation, Excoriation, Assessed, Scarring Rash Excoriation, Scarring -Moisture (Earlene-wound Skin Appearance) Weeping Weeping Assessed -Color (Earlene-wound Skin Appearance) Erythema Hemosiderin Assessed, Staining Erythema -Temperature (Earlene-wound Skin No Abnormality No Abnormality Appearance) (Pt Warm) (Pt Warm) -Tenderness on Palpation (Earlene-wound No No Skin Appearance) -Ulcer Cleansing Soap and Water Soap and Water Soap and Water -Foul Odor after Cleansing No No No -Anesthetic Used 4% Lidocaine 4% Lidocaine Solution Solution Lower Limb Edema Present Yes Left Calf (cm) 45 47 49.3 Left Ankle (cm) 29 30.4 29.5 WC - Nurse 3 - General Ulcer D/C NN Start: 03/30/23 08:17 Freq: Status: Active Protocol: Activity Type Activity Date Activity User E-sign Co-sign Detail Recorded Client Recorded Date Recorded By Document 03/30/23 11:13 PL [id number] 03/30/23 11:15 PL Document 04/06/23 08:35 DL [id number] 04/06/23 08:45 DL Document 04/20/23 08:40 BM [id number] 04/20/23 08:42 BMF 03/30/23 04/06/23 04/20/23 11:13 08:35 08:40 Wound Care Center Nurse 3 #3 LLE Cluster -Ulcer Cleansing Not Cleansed Soap and Water -Foul Odor after Cleansing No No -Primary Dressing Applied Optilok 6.5x10 Optilok 6.5x10, Optilok 8x12 -Other Dressing silvadene silvadene -Primary Dressing Covered/Secured with Dry Gauze & Dry Gauze & Roll Gauze, Roll Gauze, Secured with Secured with Tape Tape -Optilok 6.5x10 3 1 -Optilok 8x12 1 Left -Tubular Bandage Single Layer Single Layer -Size of Tubigrip Used Size E Size D -Size D ($) 1 -Size E ($) 1 -Other own circaid applied Treatment Response Procedure Tolerated Well Pain Scale: 0-10 Numeric Is Patient Pain Free? Yes Yes Yes WC - Visit Discharge Discharge Condition Stable Stable Stable Ambulatory Status Ambulatory Ambulatory Ambulatory Transportation Private Auto Private Auto Assessment/Plan Assessment/Plan (1) Venous stasis dermatitis of left lower extremity: CODE(S): I87.2 - Venous insufficiency (chronic) (peripheral) (2) Chronic venous hypertension with inflammation involving left side: CODE(S): I87.322 - Chronic venous hypertension (idiopathic) with inflammation of left lower extremity (3) Leg swelling: CODE(S): M79.89 - Other specified soft tissue disorders (4) Chronic venous insufficiency: CODE(S): I87.2 - Venous insufficiency (chronic) (peripheral) (5) Lipodermatosclerosis: CODE(S): I83.10 - Varicose veins of unspecified lower extremity with inflammation QUALIFIERS: Laterality: bilateral Qualified Code(s): I83.11 - Varicose veins of right lower extremity with inflammation; I83.12 - Varicose veins of left lower extremity with inflammation (6) Leg pain: CODE(S): M79.606 - Pain in leg, unspecified QUALIFIERS: Laterality: bilateral Qualified Code(s): M79.604 - Pain in right leg; M79.605 - Pain in left leg (7) Hyperlipidemia: CODE(S): E78.5 - Hyperlipidemia, unspecified (8) Hypertension: CODE(S): I10 - Essential (primary) hypertension (9) Hyperpigmentation: CODE(S): L81.9 - Disorder of pigmentation, unspecified (10) Morbid obesity: CODE(S): E66.01 - Morbid (severe) obesity due to excess calories PLAN: Plan This is a 53-year-old male with a longstanding history of chronic venous disease. He has been previously treated at this facility by conservative means. In fact, endothermal venous ablation of superficial vein incompetence has been considered in the past, but the patient failed to follow through. The patient presented with bilateral lower extremity swelling and edema, and venous stasis dermatitis in the left gaiter area. Hyperpigmentation and lipodermatosclerosis are noted in the right gaiter area. We have reinforced the importance of conservative treatment measures relative to the management of the patient's lower extremity symptoms and manifestations. He claims to sleep on a flat mattress at night. Leg elevation, to heart level or higher, has been encouraged even during daytime hours. Ambulation and activity has been encouraged. Prolonged idle sitting has been discouraged. 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 The demands of his job are counter to recommendations for leg elevation and avoidance of prolonged idle sitting. Weight loss has been strongly recommended. Due to the large area of denuded skin in the left gaiter area, we are to continue the use of Super Absorb dressings, which will be changed daily. Efforts are underway to assist the patient in procuring these dressings. The patient is to continue using his CircAid Velcro compression garments in the lower extremities bilaterally. Leg elevation and avoidance of prolonged idle sitting has again been encouraged. We are to continue the use of Silvadene to the denuded areas in the left gaiter area, which will be applied topically on a daily basis. The patient is to return in 1 week for reassessment. Conservative treatment measures will be required for the long-term. The patient has been encouraged to lose weight voluntarily. A venous duplex examination has been obtained, which reveals incompetence of the left great saphenous vein, but no other significant superficial incompetence in the left lower extremity. In the right lower extremity, the great saphenous vein, small saphenous vein, and 3 accessory saphenous veins are incompetent. The patient will likely ultimately be a candidate for endovenous laser ablation of the left great saphenous vein. However, weight loss prior to intervention is desirable, and the patient has been strongly encouraged to pursue this objective. Weight loss has been encouraged as a prelude to interventional management. Finally, we are to assist the patient in procurement of mechanical pneumatic compression garments for use in the lower extremities. Because he is known to drive his truck for long distances 7 days/week, it is felt that the pneumatic compression pumps can be utilized by the patient even while operating his truck. It is hoped that the addition of this modality may provide additional benefit in the venous stasis manifestations noted in his left lower extremity. 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 Total time: 25 minutes.
== END 2023-04-28 23:59 | disposition home or self-care (01) ==
LOC: WC 08:15
PROVIDERS: PCP Nurse Practitioner Family; Referring Provider Nurse Practitioner Family; Visit Provider Surgery
DX: I87.322 Chronic venous hypertension (idiopathic) with inflammation of left lower extremity (principal); I83.209 Varicose veins of unspecified lower extremity with both ulcer of unspecified site and inflammation; E66.01 Morbid (severe) obesity due to excess calories; Z68.43 Body mass index [BMI] 50.0-59.9, adult; M79.605 Pain in left leg; E78.5 Hyperlipidemia, unspecified; R60.0 Localized edema; M79.604 Pain in right leg; I87.2 Venous insufficiency (chronic) (peripheral); M79.89 Other specified soft tissue disorders; I83.11 Varicose veins of right lower extremity with inflammation; I83.12 Varicose veins of left lower extremity with inflammation; I10 Essential (primary) hypertension; L81.9 Disorder of pigmentation, unspecified
CPT/HCPCS: 93970; 99213; G0463

== ENCOUNTER 2023-05-18 08:15 | Outpatient (RCR) | payer BC, SELFPAY ==
[2023-04-29 00:15] VITALS: BP 148/69; PULSE 72; RESP 16; TEMP 35.9; BMI 50.3
[2023-05-04 08:32] VITALS: BP 143/71; PULSE 58; RESP 22; TEMP 36.3; BMI 50.3
--- NOTE | 2023-05-04 09:10 | PCM.WC.HP ---
History of Present Illness Date of Service: 05/04/23 Chief Complaint: Venous stasis dermatitis with swelling and edema in the left lower extremity History of Wound: This is a 53-year-old male with a longstanding history of chronic venous disease. He has previously been treated at this facility for a venous stasis ulceration in the right lower extremity. He presented on this occasion with venous stasis dermatitis in the left lower extremity, associated with swelling and edema. The dermatitic changes, swelling, and edema in the left lower extremity had been present for nearly 1 year. He was treated with doxycycline 100 mg p.o. twice daily, as prescribed by his primary care physician. He was using Xeroform topically. The patient is morbidly obese. He denies a history of deep vein thrombosis in the past. He claims to sleep on a flat mattress at night. 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 He possesses CircAid Velcro compression garments, which are in suitable condition, and which he claims to wear on a daily basis. A venous duplex examination performed on July 08, 2021, revealed incompetence of the right great saphenous vein, right small saphenous vein, right accessory saphenous vein in the distal thigh, left great saphenous vein, and left small saphenous vein. [facility] Medical History Chronic venous hypertension with inflammation involving left side Chronic venous insufficiency Hyperlipidemia Hyperpigmentation Hypertension Leg pain Leg swelling Lipodermatosclerosis Morbid obesity Venous hypertension, chronic, with inflammation Venous hypertension, chronic, with ulcer and inflammation Venous stasis dermatitis of left lower extremity Venous stasis ulcer Home Medications furosemide 40 mg tablet 40 mg PO BID 06/24/21 [History Last Taken Unknown] lansoprazole 30 mg capsule,delayed release 30 mg PO DAILY 06/24/21 [History Last Taken Unknown] losartan 100 mg tablet 100 mg PO DAILY 06/24/21 [History Last Taken Unknown] pravastatin 10 mg tablet 10 mg PO DAILY 06/24/21 [History Last Taken Unknown] aspirin 81 mg tablet,delayed release mg 03/02/23 [History Last Taken Unknown] doxycycline hyclate 100 mg tablet 100 mg PO DAILY 03/02/23 [History Last Taken Unknown] Allergy/AdvReac Type Severity Reaction Status Date / Time No Known Allergies Allergy Verified 03/02/23 08:30 Surgical History H/O umbilical hernia repair Social History 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 General Appearance: cooperative, comfortable, well kempt and well developed Orientation / Consciousness: awake, oriented to person, oriented to place and oriented to time HEENT normocephalic, head/scalp atraumatic and hearing grossly normal bilaterally Head and Scalp: normal to inspection, normocephalic and atraumatic External Ear: external ears normal Eyes PERRL and EOMs intact bilaterally General Eye: normal appearance of both eyes Resp normal respiratory effort, normal air movement, no retractions and no use of accessory muscles Effort and Inspection: able to speak in complete sentences Extremity no calf tenderness Extremity Narrative: Chronic venous changes are noted in the patient's right lower extremity. These include hyperpigmentation and lipodermatosclerosis. General Extremity: Negative for clubbing or cyanosis Skin Wound Narrative: Mild swelling and edema are noted in the lower extremities bilaterally. Hyperpigmentation and lipodermatosclerosis are noted in the right gaiter area. In the left gaiter area, venous stasis dermatitis is noted, with a large area of denuded epidermis. The denudation also extends to the dorsum of the patient's left foot. There is no obvious sign of infection or cellulitis. There has been mild improvement since the patient's prior visit. Neuro oriented x3, CN's II-XII intact bilaterally, moves all extremities and no focal motor deficits Sensorium / Orientation: awake, alert, oriented to person, oriented to place and oriented to time Psych Appearance: grossly normal and appropriate Attitude: calm Activity / Motor Behavior: appropriate eye contact Speech: normal speech Mood & Affect: euthymic mood Thought Process: normal thought process Thought Content: normal thought content Attention / Concentration: attention grossly intact Debridement Note Debridement Note No debridement was completed: No debridement was completed today Post-Debridement Measurements and Additional Note: Post-Debridement Measurements/Treatment ELVER - Nurse 1 - General Ulcer Assessment Start: 05/04/23 08:32 Freq: Status: Active Protocol: JUSTINE Activity Type Activity Date Activity User E-sign Co-sign Detail Recorded Client Recorded Date Recorded By Document 05/04/23 08:32 DL [id number] 05/04/23 08:35 DL 05/04/23 08:32 WC - Today's Visit Information Type of service Follow-up Visit (Physician/[employer]IN[employer]ONWORKER ) Arrival Mode Ambulatory Transfer Assistance None Patient Identification Verified (Name & Yes ) Patient Requires Transmission-Based No Precautions Safety Precautions NA Height and Weight Body Mass Index (BMI) 50.3 BMI Classification Obese Vital Signs Temperature (97.8 F-99.1 F) 97.4 F L Temperature Source Temporal Pulse Rate (60-100) 58 L Pulse Location Monitor Respiratory Rate (12-18) 22 H Respiratory rate source Observation Blood Pressure (90/60-120/80) 143/71 H Blood Pressure Mean 95 Source Monitor History Since Last Visit- (Skip if this is Patient's initial visit) Have you changed medications since your No last visit? Any new allergies or adverse reactions No Had a fall/change in ADL's that may No increase risk of falls Signs or symptoms of abuse and/or No neglect since last visit Have you been in the hospital since your No last visit? Has dressing in place as prescribed No Has compression in place as prescribed No Has offloadiing in place as prescribed N/A Experienced any changes in pain level or No management Pain Scale: 0-10 Numeric Is Patient Pain Free? Yes EL[facility] - Nurse 1 - General Ulcer Measurement Start: 05/04/23 08:32 Freq: Status: Active Protocol: Activity Type Activity Date Activity User E-sign Co-sign Detail Recorded Client Recorded Date Recorded By Document 05/04/23 08:32 DL [id number] 05/04/23 08:35 DL 05/04/23 08:32 Wound Center Nurse 1 #3 LLE Cluster -Current Size (cm) - Length 0.1 -Current Size (cm) - Width 0.1 -Current Size (cm) - Depth 0.1 -Total Square Cm 0.01 -Exudate Amt Small -Exudate Type Serosanguineous -Wound Margin Indistinct, Non -Visible -Granulation Amt Large (67-100%) -Granulation Quality Red -Necrosis Amt None Present (0 %) -Structure Exposed N/A -Texture (Earlene-wound Skin Appearance) Excoriation, Localized Edema -Moisture (Earlene-wound Skin Appearance) Weeping -Color (Earlene-wound Skin Appearance) Erythema, Hemosiderin Staining -Temperature (Earlene-wound Skin No Abnormality Appearance) (Pt Warm) -Ulcer Cleansing Soap and Water -Foul Odor after Cleansing No -Anesthetic Used 4% Lidocaine Solution Left Calf (cm) 49.5 Left Ankle (cm) 35 - Nurse 3 - General Ulcer D/C NN Start: 05/04/23 08:32 Freq: Status: Active Protocol: Activity Type Activity Date Activity User E-sign Co-sign Detail Recorded Client Recorded Date Recorded By Document 05/04/23 08:50 DL [id number] 05/04/23 08:51 DL 05/04/23 08:50 Wound Care Center Nurse 3 #3 LLE Cluster -Foul Odor after Cleansing No -Other Dressing silvadene -Primary Dressing Covered/Secured with Dry Gauze & Roll Gauze, Secured with Tape -Other Covering ABD Right -Other Circ Aid Left -Other Circ Aid Treatment Response Procedure Tolerated Well Pain Scale: 0-10 Numeric Is Patient Pain Free? Yes WC - Visit Discharge Discharge Condition Stable Ambulatory Status Ambulatory Transportation Private Auto Assessment/Plan Assessment/Plan (1) Venous stasis dermatitis of left lower extremity: CODE(S): I87.2 - Venous insufficiency (chronic) (peripheral) (2) Chronic venous hypertension with inflammation involving left side: CODE(S): I87.322 - Chronic venous hypertension (idiopathic) with inflammation of left lower extremity (3) Leg swelling: CODE(S): M79.89 - Other specified soft tissue disorders (4) Chronic venous insufficiency: CODE(S): I87.2 - Venous insufficiency (chronic) (peripheral) (5) Lipodermatosclerosis: CODE(S): I83.10 - Varicose veins of unspecified lower extremity with inflammation QUALIFIERS: Laterality: bilateral Qualified Code(s): I83.11 - Varicose veins of right lower extremity with inflammation; I83.12 - Varicose veins of left lower extremity with inflammation (6) Leg pain: CODE(S): M79.606 - Pain in leg, unspecified QUALIFIERS: Laterality: bilateral Qualified Code(s): M79.604 - Pain in right leg; M79.605 - Pain in left leg (7) Hyperlipidemia: CODE(S): E78.5 - Hyperlipidemia, unspecified (8) Hypertension: CODE(S): I10 - Essential (primary) hypertension (9) Hyperpigmentation: CODE(S): L81.9 - Disorder of pigmentation, unspecified (10) Morbid obesity: CODE(S): E66.01 - Morbid (severe) obesity due to excess calories PLAN: Plan This is a 53-year-old male with a longstanding history of chronic venous disease. He has been previously treated at this facility by conservative means. In fact, endothermal venous ablation of superficial vein incompetence has been considered in the past, but the patient failed to follow through. The patient presented with bilateral lower extremity swelling and edema, and venous stasis dermatitis in the left gaiter area. Hyperpigmentation and lipodermatosclerosis are noted in the right gaiter area. We have reinforced the importance of conservative treatment measures relative to the management of the patient's lower extremity symptoms and manifestations. He claims to sleep on a flat mattress at night. Leg elevation, to heart level or higher, has been encouraged even during daytime hours. Ambulation and activity has been encouraged. Prolonged idle sitting has been discouraged. 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 The demands of his job are counter to recommendations for leg elevation and avoidance of prolonged idle sitting. Weight loss has been strongly recommended. Due to the large area of denuded skin in the left gaiter area, we are to continue the use of Super Absorb dressings, which will be changed daily. The patient is to continue using his CircAid Velcro compression garments in the lower extremities bilaterally. Leg elevation and avoidance of prolonged idle sitting has again been encouraged. We are to continue the use of Silvadene to the denuded areas in the left gaiter area, which will be applied topically on a daily basis. The patient is to return in 2 weeks for reassessment. Conservative treatment measures will be required for the long-term. The patient has been encouraged to lose weight voluntarily. A venous duplex examination has been obtained, which reveals incompetence of the left great saphenous vein, but no other significant superficial incompetence in the left lower extremity. In the right lower extremity, the great saphenous vein, small saphenous vein, and 3 accessory saphenous veins are incompetent. The patient will likely ultimately be a candidate for endovenous laser ablation of the left great saphenous vein. However, weight loss prior to intervention is desirable, and the patient has been strongly encouraged to pursue this objective. Weight loss has been encouraged as a prelude to interventional management. Finally, we are to assist the patient in procurement of mechanical pneumatic compression garments for use in the lower extremities. Because he is known to drive his truck for long distances 7 days/week, it is felt that the pneumatic compression pumps can be utilized by the patient even while operating his truck. It is hoped that the addition of this modality may provide additional benefit in the venous stasis manifestations noted in his left lower extremity. It appears as though the patient will soon be fitted for ambulatory pneumatic compression pumps made by refining engineer [employer]. It is anticipated that these mechanical pneumatic pumps will hasten the recovery process relative to the patient's chronic venous disease and its manifestations. 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 Total time: 28 minutes.
--- NOTE | 2023-05-18 08:45 | PCM.WC.HP ---
History of Present Illness Date of Service: 05/18/23 Chief Complaint: Venous stasis dermatitis with swelling and edema in the left lower extremity History of Wound: This is a 53-year-old male with a longstanding history of chronic venous disease. He has previously been treated at this facility for a venous stasis ulceration in the right lower extremity. He presented on this occasion with venous stasis dermatitis in the left lower extremity, associated with swelling and edema. The dermatitic changes, swelling, and edema in the left lower extremity had been present for nearly 1 year. He was treated with doxycycline 100 mg p.o. twice daily, as prescribed by his primary care physician. He was using Xeroform topically. The patient is morbidly obese. He denies a history of deep vein thrombosis in the past. He claims to sleep on a flat mattress at night. 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 He possesses CircAid Velcro compression garments, which are in suitable condition, and which he claims to wear on a daily basis. A venous duplex examination performed on July 08, 2021, revealed incompetence of the right great saphenous vein, right small saphenous vein, right accessory saphenous vein in the distal thigh, left great saphenous vein, and left small saphenous vein. [facility] Medical History Chronic venous hypertension with inflammation involving left side Chronic venous insufficiency Hyperlipidemia Hyperpigmentation Hypertension Leg pain Leg swelling Lipodermatosclerosis Morbid obesity Venous hypertension, chronic, with inflammation Venous hypertension, chronic, with ulcer and inflammation Venous stasis dermatitis of left lower extremity Venous stasis ulcer Home Medications furosemide 40 mg tablet 40 mg PO BID 06/24/21 [History Last Taken Unknown] lansoprazole 30 mg capsule,delayed release 30 mg PO DAILY 06/24/21 [History Last Taken Unknown] losartan 100 mg tablet 100 mg PO DAILY 06/24/21 [History Last Taken Unknown] pravastatin 10 mg tablet 10 mg PO DAILY 06/24/21 [History Last Taken Unknown] aspirin 81 mg tablet,delayed release mg 03/02/23 [History Last Taken Unknown] doxycycline hyclate 100 mg tablet 100 mg PO DAILY 03/02/23 [History Last Taken Unknown] Allergy/AdvReac Type Severity Reaction Status Date / Time No Known Allergies Allergy Verified 03/02/23 08:30 Surgical History H/O umbilical hernia repair Social History 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 General Appearance: cooperative, comfortable, well kempt and well developed Orientation / Consciousness: awake, oriented to person, oriented to place and oriented to time HEENT normocephalic, head/scalp atraumatic and hearing grossly normal bilaterally Head and Scalp: normal to inspection, normocephalic and atraumatic External Ear: external ears normal Eyes PERRL and EOMs intact bilaterally General Eye: normal appearance of both eyes Resp normal respiratory effort, normal air movement, no retractions and no use of accessory muscles Effort and Inspection: able to speak in complete sentences Extremity no calf tenderness Extremity Narrative: Chronic venous changes are noted in the patient's right lower extremity. These include hyperpigmentation and lipodermatosclerosis. General Extremity: Negative for clubbing or cyanosis Skin Wound Narrative: Mild swelling and edema are noted in the lower extremities bilaterally. Hyperpigmentation and lipodermatosclerosis are noted in the right gaiter area. In the left gaiter area, a wide area of venous stasis dermatitis is noted, with scattered areas of denuded epidermis. The denudation also extends to the dorsum of the patient's left foot. There is no obvious sign of bacterial infection or cellulitis. Neuro oriented x3, CN's II-XII intact bilaterally, moves all extremities and no focal motor deficits Sensorium / Orientation: awake, alert, oriented to person, oriented to place and oriented to time Psych Appearance: grossly normal and appropriate Attitude: calm Activity / Motor Behavior: appropriate eye contact Speech: normal speech Mood & Affect: euthymic mood Thought Process: normal thought process Thought Content: normal thought content Attention / Concentration: attention grossly intact Debridement Note Debridement Note No debridement was completed: No debridement was completed today (There are no frankly open wounds or ulcerations.) Post-Debridement Measurements and Additional Note: Post-Debridement Measurements/Treatment - Nurse 1 - General Ulcer Assessment Start: 05/04/23 08:32 Freq: Status: Active Protocol: JUSTINE Activity Type Activity Date Activity User E-sign Co-sign Detail Recorded Client Recorded Date Recorded By Document 05/04/23 08:32 DL [id number] 05/04/23 08:35 DL 05/04/23 08:32 WC - Today's Visit Information Type of service Follow-up Visit (Physician/JANITORIAL ASSISTANT ) Arrival Mode Ambulatory Transfer Assistance None Patient Identification Verified (Name & Yes ) Patient Requires Transmission-Based No Precautions Safety Precautions NA Height and Weight Body Mass Index (BMI) 50.3 BMI Classification Obese Vital Signs Temperature (97.8 F-99.1 F) 97.4 F L Temperature Source Temporal Pulse Rate (60-100) 58 L Pulse Location Monitor Respiratory Rate (12-18) 22 H Respiratory rate source Observation Blood Pressure (90/60-120/80) 143/71 H Blood Pressure Mean 95 Source Monitor History Since Last Visit- (Skip if this is Patient's initial visit) Have you changed medications since your No last visit? Any new allergies or adverse reactions No Had a fall/change in ADL's that may No increase risk of falls Signs or symptoms of abuse and/or No neglect since last visit Have you been in the hospital since your No last visit? Has dressing in place as prescribed No Has compression in place as prescribed No Has offloadiing in place as prescribed N/A Experienced any changes in pain level or No management Pain Scale: 0-10 Numeric Is Patient Pain Free? Yes - Nurse 1 - General Ulcer Measurement Start: 05/04/23 08:32 Freq: Status: Active Protocol: Activity Type Activity Date Activity User E-sign Co-sign Detail Recorded Client Recorded Date Recorded By Document 05/04/23 08:32 DL [id number] 05/04/23 08:35 DL 05/04/23 08:32 Wound Center Nurse 1 #3 LLE Cluster -Current Size (cm) - Length 0.1 -Current Size (cm) - Width 0.1 -Current Size (cm) - Depth 0.1 -Total Square Cm 0.01 -Exudate Amt Small -Exudate Type Serosanguineous -Wound Margin Indistinct, Non -Visible -Granulation Amt Large (67-100%) -Granulation Quality Red -Necrosis Amt None Present (0 %) -Structure Exposed N/A -Texture ([place]-wound Skin Appearance) Excoriation, Localized Edema -Moisture (Earlene-wound Skin Appearance) Weeping -Color (Earlene-wound Skin Appearance) Erythema, Hemosiderin Staining -Temperature (Earlene-wound Skin No Abnormality Appearance) (Pt Warm) -Ulcer Cleansing Soap and Water -Foul Odor after Cleansing No -Anesthetic Used 4% Lidocaine Solution Left Calf (cm) 49.5 Left Ankle (cm) 35 WC - Nurse 3 - General Ulcer D/C NN Start: 05/04/23 08:32 Freq: Status: Active Protocol: Activity Type Activity Date Activity User E-sign Co-sign Detail Recorded Client Recorded Date Recorded By Document 05/04/23 08:50 DL [id number] 05/04/23 08:51 DL 05/04/23 08:50 Wound Care Center Nurse 3 #3 LLE Cluster -Foul Odor after Cleansing No -Other Dressing silvadene -Primary Dressing Covered/Secured with Dry Gauze & Roll Gauze, Secured with Tape -Other Covering ABD Right -Other Circ Aid Left -Other Circ Aid Treatment Response Procedure Tolerated Well Pain Scale: 0-10 Numeric Is Patient Pain Free? Yes WC - Visit Discharge Discharge Condition Stable Ambulatory Status Ambulatory Transportation Private Auto Assessment/Plan Assessment/Plan (1) Venous stasis dermatitis of left lower extremity: CODE(S): I87.2 - Venous insufficiency (chronic) (peripheral) (2) Chronic venous hypertension with inflammation involving left side: CODE(S): I87.322 - Chronic venous hypertension (idiopathic) with inflammation of left lower extremity (3) Leg swelling: CODE(S): M79.89 - Other specified soft tissue disorders (4) Chronic venous insufficiency: CODE(S): I87.2 - Venous insufficiency (chronic) (peripheral) (5) Lipodermatosclerosis: CODE(S): I83.10 - Varicose veins of unspecified lower extremity with inflammation QUALIFIERS: Laterality: bilateral Qualified Code(s): I83.11 - Varicose veins of right lower extremity with inflammation; I83.12 - Varicose veins of left lower extremity with inflammation (6) Leg pain: CODE(S): M79.606 - Pain in leg, unspecified QUALIFIERS: Laterality: bilateral Qualified Code(s): M79.604 - Pain in right leg; M79.605 - Pain in left leg (7) Hyperlipidemia: CODE(S): E78.5 - Hyperlipidemia, unspecified (8) Hypertension: CODE(S): I10 - Essential (primary) hypertension (9) Hyperpigmentation: CODE(S): L81.9 - Disorder of pigmentation, unspecified (10) Morbid obesity: CODE(S): E66.01 - Morbid (severe) obesity due to excess calories PLAN: Plan This is a 53-year-old male with a longstanding history of chronic venous disease. He has been previously treated at this facility by conservative means. In fact, endothermal venous ablation of superficial vein incompetence has been considered in the past, but the patient failed to follow through. The patient presented with bilateral lower extremity swelling and edema, and venous stasis dermatitis in the left gaiter area. Hyperpigmentation and lipodermatosclerosis are noted in the right gaiter area. We have reinforced the importance of conservative treatment measures relative to the management of the patient's lower extremity symptoms and manifestations. He claims to sleep on a flat mattress at night. Leg elevation, to heart level or higher, has been encouraged even during daytime hours. Ambulation and activity has been encouraged. Prolonged idle sitting has been discouraged. 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 The demands of his job are counter to recommendations for leg elevation and avoidance of prolonged idle sitting. The patient has been urged to take some days off from work, in order to stay home with his legs elevated. The patient exhibits reluctance to do so. Weight loss has been strongly recommended. Due to the large area of denuded skin in the left gaiter area, we are to continue the use of Super Absorb dressings, which will be changed daily. The patient is to continue using his CircAid Velcro compression garments in the lower extremities bilaterally. Leg elevation and avoidance of prolonged idle sitting has again been encouraged. We are to transition from the use of Silvadene applied topically, and the patient has been provided a prescription for Lotrisone 1% cream (45 g tube), to be applied topically twice daily. There is suspicion that the erythema noted in the left gaiter area may be due to a dermatomycosis. It is felt at the antifungal and steroid topical preparation may be of benefit. The patient is to return in 2 weeks for reassessment. Conservative treatment measures will be required for the long-term. The patient has been encouraged to lose weight voluntarily. A venous duplex examination has been obtained, which reveals incompetence of the left great saphenous vein, but no other significant superficial incompetence in the left lower extremity. In the right lower extremity, the great saphenous vein, small saphenous vein, and 3 accessory saphenous veins are incompetent. The patient will likely ultimately be a candidate for endovenous laser ablation of the left great saphenous vein. However, weight loss prior to intervention is desirable, and the patient has been strongly encouraged to pursue this objective. Weight loss has been encouraged as a prelude to interventional management. Finally, we are to assist the patient in procurement of mechanical pneumatic compression garments for use in the lower extremities. Because he is known to drive his truck for long distances 7 days/week, it is felt that the pneumatic compression pumps can be utilized by the patient even while operating his truck. It is hoped that the addition of this modality may provide additional benefit in the venous stasis manifestations noted in his left lower extremity. 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 It is anticipated that these mechanical pneumatic pumps will hasten the recovery process relative to the patient's chronic venous disease and its manifestations. 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 Total time: 26 minutes.
[2023-05-18 08:48] VITALS: BP 149/44; PULSE 79; TEMP 35.9; BMI 50.3
== END 2023-05-28 23:59 | disposition home or self-care (01) ==
LOC: WC 08:15
PROVIDERS: PCP Nurse Practitioner Family; Referring Provider Nurse Practitioner Family; Visit Provider Surgery
DX: I83.228 Varicose veins of left lower extremity with both ulcer of other part of lower extremity and inflammation (principal); L97.829 Non-pressure chronic ulcer of other part of left lower leg with unspecified severity; E66.01 Morbid (severe) obesity due to excess calories; Z68.43 Body mass index [BMI] 50.0-59.9, adult; E78.5 Hyperlipidemia, unspecified; R60.0 Localized edema; I10 Essential (primary) hypertension; L81.9 Disorder of pigmentation, unspecified
CPT/HCPCS: 99213; G0463

== ENCOUNTER 2023-06-22 08:15 | Outpatient (RCR) | payer BC, SELFPAY ==
[2023-05-29 00:37] VITALS: BP 149/44; PULSE 79; RESP 22; TEMP 35.9; BMI 50.3
[2023-06-08 08:22] VITALS: RESP 20; TEMP 35.8; BMI 50.3
--- NOTE | 2023-06-08 09:17 | PCM.WC.HP ---
History of Present Illness Date of Service: 06/08/23 Chief Complaint: Venous stasis dermatitis with swelling and edema in the left lower extremity History of Wound: This is a 53-year-old male with a longstanding history of chronic venous disease. He has previously been treated at this facility for a venous stasis ulceration in the right lower extremity. He presented on this occasion with venous stasis dermatitis in the left lower extremity, associated with swelling and edema. The dermatitic changes, swelling, and edema in the left lower extremity had been present for nearly 1 year. He was treated with doxycycline 100 mg p.o. twice daily, as prescribed by his primary care physician. He was using Xeroform topically. The patient is morbidly obese. He denies a history of deep vein thrombosis in the past. He claims to sleep on a flat mattress at night. 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 He possesses CircAid Velcro compression garments, which are in suitable condition, and which he claims to wear on a daily basis. A venous duplex examination performed on July 08, 2021, revealed incompetence of the right great saphenous vein, right small saphenous vein, right accessory saphenous vein in the distal thigh, left great saphenous vein, and left small saphenous vein. [facility] Medical History Chronic venous hypertension with inflammation involving left side Chronic venous insufficiency Hyperlipidemia Hyperpigmentation Hypertension Leg pain Leg swelling Lipodermatosclerosis Morbid obesity Venous hypertension, chronic, with inflammation Venous hypertension, chronic, with ulcer and inflammation Venous stasis dermatitis of left lower extremity Venous stasis ulcer Home Medications furosemide 40 mg tablet 40 mg PO BID 06/24/21 [History Last Taken Unknown] lansoprazole 30 mg capsule,delayed release 30 mg PO DAILY 06/24/21 [History Last Taken Unknown] losartan 100 mg tablet 100 mg PO DAILY 06/24/21 [History Last Taken Unknown] pravastatin 10 mg tablet 10 mg PO DAILY 06/24/21 [History Last Taken Unknown] aspirin 81 mg tablet,delayed release mg 03/02/23 [History Last Taken Unknown] doxycycline hyclate 100 mg tablet 100 mg PO DAILY 03/02/23 [History Last Taken Unknown] Allergy/AdvReac Type Severity Reaction Status Date / Time No Known Allergies Allergy Verified 03/02/23 08:30 Surgical History H/O umbilical hernia repair Social History 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 General Appearance: cooperative, comfortable, well kempt and well developed Orientation / Consciousness: awake, oriented to person, oriented to place and oriented to time HEENT normocephalic, head/scalp atraumatic and hearing grossly normal bilaterally Head and Scalp: normal to inspection, normocephalic and atraumatic External Ear: external ears normal Eyes PERRL and EOMs intact bilaterally General Eye: normal appearance of both eyes Resp normal respiratory effort, normal air movement, no retractions and no use of accessory muscles Effort and Inspection: able to speak in complete sentences Extremity no calf tenderness Extremity Narrative: Chronic venous changes are noted in the patient's right lower extremity. These include hyperpigmentation and lipodermatosclerosis. General Extremity: Negative for clubbing or cyanosis Skin Wound Narrative: Minimal swelling and edema are noted in the lower extremities bilaterally. Hyperpigmentation and lipodermatosclerosis are noted in the right gaiter area. On the left, the area of venous stasis dermatitis has improved significantly. 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 The area has responded nicely to the use of topical Lotrisone cream 1% topically. The large area of denudation and erythema has now essentially resolved. There are now only a few remaining small, superficial excoriations on the left lateral calf. There has been significant improvement within the last several weeks. There is no obvious sign of bacterial infection or cellulitis. Neuro oriented x3, CN's II-XII intact bilaterally, moves all extremities and no focal motor deficits Sensorium / Orientation: awake, alert, oriented to person, oriented to place and oriented to time Psych Appearance: grossly normal and appropriate Attitude: calm Activity / Motor Behavior: appropriate eye contact Speech: normal speech Mood & Affect: euthymic mood Thought Process: normal thought process Thought Content: normal thought content Attention / Concentration: attention grossly intact Debridement Note Debridement Note No debridement was completed: No debridement was completed today (There are no kathy open wounds or ulcerations.) Post-Debridement Measurements and Additional Note: Post-Debridement Measurements/Treatment - Nurse 1 - General Ulcer Assessment Start: 06/08/23 08:22 Freq: Status: Active Protocol: JUSTINE Activity Type Activity Date Activity User E-sign Co-sign Detail Recorded Client Recorded Date Recorded By Document 06/08/23 08:22 DL [id number] 06/08/23 08:27 DL 06/08/23 08:22 WC - Today's Visit Information Type of service Follow-up Visit (Physician/[facility] ) Arrival Mode Ambulatory Transfer Assistance None Patient Identification Verified (Name & Yes ) Patient Requires Transmission-Based No Precautions Height and Weight Body Mass Index (BMI) 50.3 BMI Classification Obese Vital Signs Temperature (97.8 F-99.1 F) 96.5 F L Temperature Source Temporal Respiratory Rate (12-18) 20 H Respiratory rate source Observation History Since Last Visit- (Skip if this is Patient's initial visit) Have you changed medications since your No last visit? Any new allergies or adverse reactions No Had a fall/change in ADL's that may No increase risk of falls Signs or symptoms of abuse and/or No neglect since last visit Have you been in the hospital since your No last visit? Has dressing in place as prescribed Yes Has compression in place as prescribed Yes Has offloadiing in place as prescribed N/A Experienced any changes in pain level or No management Pain Scale: 0-10 Numeric Is Patient Pain Free? Yes Ishmael Nurse 1 - General Ulcer Measurement Start: 06/08/23 08:22 Freq: Status: Active Protocol: Activity Type Activity Date Activity User E-sign Co-sign Detail Recorded Client Recorded Date Recorded By Document 06/08/23 08:22 DL [id number] 06/08/23 08:27 DL 06/08/23 08:22 Wound Center Nurse 1 #3 LLE Cluster -Current Size (cm) - Length 1 -Current Size (cm) - Width 4 -Current Size (cm) - Depth 0.1 -Total Square Cm 4 -Exudate Amt Medium -Exudate Type Serosanguineous -Wound Margin Indistinct, Non -Visible -Granulation Amt Medium (34-66%) -Granulation Quality [place] -Necrosis Amt Medium (34-66%) -Necrotic Tissue Type Adherent Slough -Structure Exposed N/A -Texture (Earlene-wound Skin Appearance) Scarring -Moisture (Earlene-wound Skin Appearance) Dry/Scaly -Color (Earlene-wound Skin Appearance) Hemosiderin Staining -Temperature (Earlene-wound Skin No Abnormality Appearance) (Pt Warm) -Tenderness on Palpation (Earlene-wound No Skin Appearance) -Ulcer Cleansing Soap and Water -Foul Odor after Cleansing No -Anesthetic Used 5% Lidocaine Gel Left Calf (cm) 46.7 Left Ankle (cm) 28.5 Assessment/Plan Assessment/Plan (1) Venous stasis dermatitis of left lower extremity: CODE(S): I87.2 - Venous insufficiency (chronic) (peripheral) (2) Chronic venous hypertension with inflammation involving left side: CODE(S): I87.322 - Chronic venous hypertension (idiopathic) with inflammation of left lower extremity (3) Leg swelling: CODE(S): M79.89 - Other specified soft tissue disorders (4) Chronic venous insufficiency: CODE(S): I87.2 - Venous insufficiency (chronic) (peripheral) (5) Lipodermatosclerosis: CODE(S): I83.10 - Varicose veins of unspecified lower extremity with inflammation QUALIFIERS: Laterality: bilateral Qualified Code(s): I83.11 - Varicose veins of right lower extremity with inflammation; I83.12 - Varicose veins of left lower extremity with inflammation (6) Leg pain: CODE(S): M79.606 - Pain in leg, unspecified QUALIFIERS: Laterality: bilateral Qualified Code(s): M79.604 - Pain in right leg; M79.605 - Pain in left leg (7) Hyperlipidemia: CODE(S): E78.5 - Hyperlipidemia, unspecified (8) Hypertension: CODE(S): I10 - Essential (primary) hypertension (9) Hyperpigmentation: CODE(S): L81.9 - Disorder of pigmentation, unspecified (10) Morbid obesity: CODE(S): E66.01 - Morbid (severe) obesity due to excess calories PLAN: Plan This is a 53-year-old male with a longstanding history of chronic venous disease. He has been previously treated at this facility by conservative means. In fact, endothermal venous ablation of superficial vein incompetence has been considered in the past, but the patient failed to follow through. The patient presented with bilateral lower extremity swelling and edema, and venous stasis dermatitis in the left gaiter area. Hyperpigmentation and lipodermatosclerosis are noted in the right gaiter area. We have reinforced the importance of conservative treatment measures relative to the management of the patient's lower extremity symptoms and manifestations. He claims to sleep on a flat mattress at night. Leg elevation, to heart level or higher, has been encouraged even during daytime hours. Ambulation and activity has been encouraged. Prolonged idle sitting has been discouraged. 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 The demands of his job are counter to recommendations for leg elevation and avoidance of prolonged idle sitting. The patient has been urged to take some days off from work, in order to stay home with his legs elevated. The patient exhibits reluctance to do so. Weight loss has been strongly recommended. There has been significant improvement in the denudation and erythema in the left gaiter area. This improvement appears to be related to the use of Lotrisone cream 1% which has been used topically on a twice daily basis. There are no kathy open wounds or ulcerations, with only a few small, superficial excoriations remaining. Therefore, we are to transition to the use of collagen hydrogel topically on these areas. The patient is to continue using his CircAid Velcro compression garments in the lower extremities bilaterally. Leg elevation and avoidance of prolonged idle sitting has again been encouraged. 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 Conservative treatment measures will be required for the long-term. The patient has been encouraged to lose weight voluntarily. A venous duplex examination has been obtained, which reveals incompetence of the left great saphenous vein, but no other significant superficial incompetence in the left lower extremity. In the right lower extremity, the great saphenous vein, small saphenous vein, and 3 accessory saphenous veins are incompetent. The patient will likely ultimately be a candidate for endovenous laser ablation of the left great saphenous vein. However, weight loss prior to intervention is desirable, and the patient has been strongly encouraged to pursue this objective. Weight loss has been encouraged as a prelude to interventional management. Finally, we are to assist the patient in procurement of mechanical pneumatic compression garments for use in the lower extremities. Because he is known to drive his truck for long distances 7 days/week, it is felt that the pneumatic compression pumps can be utilized by the patient even while operating his truck. It is hoped that the addition of this modality may provide additional benefit in the venous stasis manifestations noted in his left lower extremity. It appears as though the patient will soon be fitted for ambulatory pneumatic compression pumps made by [employer]. It is anticipated that these mechanical pneumatic pumps will hasten the recovery process relative to the patient's chronic venous disease and its manifestations, and be important as an implementation long-term. 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 Total time: 28 minutes.
[2023-06-22 08:09] VITALS: BP 125/53; PULSE 62; RESP 20; TEMP 36.2; BMI 50.3
--- NOTE | 2023-06-22 08:46 | HP.PCM_ITS ---
History of Present Illness Date of Service: 06/22/23 Chief Complaint: Venous stasis dermatitis with swelling and edema in the left lower extremity History of Wound: This is a 53-year-old male with a longstanding history of chronic venous disease. He has previously been treated at this facility for a v enous stasis ulceration in the right lower extremity. He presented on this occasion with venous stasis dermatitis in the left lower extremity, associated with swelling and edema. The dermatitic changes, swelling, and edema in the left lower extremity had been present for nearly 1 year. He was treated with doxycycline 100 mg p.o. twice daily, as prescribed by his primary care physician. He was using Xeroform topically. The patient is morbidly obese. He denies a history of deep vein thrombosis in the past. He claims to sleep on a flat mattress at night. 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 He possesses CircAid Velcro compression garments, which are in suitable condition, and which he claims to wear on a daily basis. A venous duplex examination performed on July 08, 2021, revealed incompetence of the right great saphenous vein, right small saphenous vein, right accessory saphenous vein in the distal thigh, left great saphenous vein, and left small saphenous vein. [facility] Medical History Chronic venous hypertension with inflammation involving left side Chronic venous insufficiency Hyperlipidemia Hyperpigmentation Hypertension Leg pain Leg swelling Lipodermatosclerosis Morbid obesity Venous hypertension, chronic, with inflammation Venous hypertension, chronic, with ulcer and inflammation Venous stasis dermatitis of left lower extremity Venous stasis ulcer Home Medications furosemide 40 mg tablet 40 mg PO BID 06/24/21 [History Last Taken Unknown] lansoprazole 30 mg capsule,delayed release 30 mg PO DAILY 06/24/21 [History Last Taken Unknown] losartan 100 mg tablet 100 mg PO DAILY 06/24/21 [History Last Taken Unknown] pravastatin 10 mg tablet 10 mg PO DAILY 06/24/21 [History Last Taken Unknown] aspirin 81 mg tablet,delayed release mg 03/02/23 [History Last Taken Unknown] doxycycline hyclate 100 mg tablet 100 mg PO DAILY 03/02/23 [History Last Taken Unknown] Allergy/AdvReac Type Severity Reaction Status Date / Time No Known Allergies Allergy Verified 03/02/23 08:30 Surgical History H/O umbilical hernia repair Social History 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 General Appearance: cooperative, comfortable, well kempt and well developed Orientation / Consciousness: awake, oriented to person, oriented to place and oriented to time HEENT normocephalic, head/scalp atraumatic and hearing grossly normal bilaterally Head and Scalp: normal to inspection, normocephalic and atraumatic External Ear: external ears normal Eyes PERRL and EOMs intact bilaterally General Eye: normal appearance of both eyes Resp normal respiratory effort, normal air movement, no retractions and no use of accessory muscles Effort and Inspection: able to speak in complete sentences Extremity no calf tenderness Extremity Narrative: Chronic venous changes are noted in the patient's right lower extremity. These include hyperpigmentation and lipodermatosclerosis. General Extremity: Negative for clubbing or cyanosis Skin Wound Narrative: Minimal swelling and edema are noted in the lower extremities bilaterally. Hyperpigmentation and lipodermatosclerosis are noted in the right gaiter area. On the left, the area of venous stasis dermatitis persists, with areas of excoriation and redness. There are scattered areas of denudation and erythema in the left gaiter area. There is no obvious sign of bacterial infection or cellulitis. Neuro oriented x3, CN's II-XII intact bilaterally, moves all extremities and no focal motor deficits Sensorium / Orientation: awake, alert, oriented to person, oriented to place and oriented to time Psych Appearance: grossly normal and appropriate Attitude: calm Activity / Motor Behavior: appropriate eye contact Speech: normal speech Mood & Affect: euthymic mood Thought Process: normal thought process Thought Content: normal thought content Attention / Concentration: attention grossly intact Debridement Note Debridement Note No debridement was completed: No debridement was completed today Post-Debridement Measurements and Additional Note: Post-Debridement Measurements/Treatment ELVER - Nurse 1 - General Ulcer Assessment Start: 06/08/23 08:22 Freq: Status: Active Protocol: JUSTINE Activity Type Activity Date Activity User E-sign Co-sign Detail Recorded Client Recorded Date Recorded By Document 06/08/23 08:22 DL [id number] 06/08/23 08:27 DL Document 06/22/23 08:09 MW [id number] 06/22/23 08:17 MW 06/08/23 06/22/23 08:22 08:09 ELVER - Today's Visit Information Type of service Follow-up Visit Follow-up Visit (Physician/DESIGN MAINTENANCE ENGINEER (Physician/DESIGN MAINTENANCE ENGINEER ) ) Arrival Mode Ambulatory Ambulatory Transfer Assistance None None Accompanied by self Patient Identification Verified (Name & Yes Yes ) Patient Requires Transmission-Based No No Precautions Safety Precautions NA Height and Weight Body Mass Index (BMI) 50.3 50.3 BMI Classification Obese Obese Vital Signs Temperature (97.8 F-99.1 F) 96.5 F L 97.2 F L Temperature Source Temporal Temporal Pulse Rate (60-100) 62 Pulse Location Monitor Respiratory Rate (12-18) 20 H 20 H Respiratory rate source Observation Observation Oxygen Delivery Method Room Air Blood Pressure (90/60-120/80) 125/53 H Blood Pressure Mean 77 Source Monitor Position Sitting Blood Pressure Location Left Arm History Since Last Visit- (Skip if this is Patient's initial visit) Have you changed medications since your No No last visit? Any new allergies or adverse reactions No No Had a fall/change in ADL's that may No No increase risk of falls Signs or symptoms of abuse and/or No No neglect since last visit Have you been in the hospital since your No No last visit? Has dressing in place as prescribed Yes Yes Has compression in place as prescribed Yes Yes Has offloadiing in place as prescribed N/A N/A Experienced any changes in pain level or No No management Left Footwear Regular Shoe Right Footwear Regular Shoe Pain Scale: 0-10 Numeric Is Patient Pain Free? Yes Yes - Nurse 1 - General Ulcer Measurement Start: 06/08/23 08:22 Freq: Status: Active Protocol: Activity Type Activity Date Activity User E-sign Co-sign Detail Recorded Client Recorded Date Recorded By Document 06/08/23 08:22 DL [id number] 06/08/23 08:27 DL Document 06/22/23 08:09 MW [id number] 06/22/23 08:17 MW 06/08/23 06/22/23 08:22 08:09 Wound Center Nurse 1 #3 LLE Cluster -Combined with other wound No -Current Size (cm) - Length 1 0.1 -Current Size (cm) - Width 4 0.1 -Current Size (cm) - Depth 0.1 0.1 -Total Square Cm 4 0.01 -Photo Taken No -Epithelialization Large 67-100% -Tunneling No -Undermining/Tunneling No -Circular Undermining No -Exudate Amt Medium Small -Exudate Type Serosanguineous Serosanguineous -Wound Margin Indistinct, Non Flat & Intact -Visible -Granulation Amt Medium (34-66%) Medium (34-66%) -Granulation Quality Concho Concho -Slough/Fibrin Yes -Necrosis Amt Medium (34-66%) Small (1-33%) -Necrotic Tissue Type Adherent Slough Adherent Slough -Structure Exposed N/A N/A -Texture (Earlene-wound Skin Appearance) Scarring Assessed, Localized Edema ,Scarring -Moisture (Earlene-wound Skin Appearance) Dry/Scaly Assessed,Dry/ Scaly -Color (Earlene-wound Skin Appearance) Hemosiderin Assessed, Staining Hemosiderin Staining -Temperature (Earlene-wound Skin No Abnormality No Abnormality Appearance) (Pt Warm) (Pt Warm) -Tenderness on Palpation (Earlene-wound No No Skin Appearance) -Ulcer Cleansing Soap and Water Soap and Water -Foul Odor after Cleansing No No -Anesthetic Used 5% Lidocaine Gel Lower Limb Edema Present Yes Left Calf (cm) 46.7 51.0 Left Ankle (cm) 28.5 29.0 ELVER - Nurse 3 - General Ulcer D/C NN Start: 06/08/23 08:22 Freq: Status: Active Protocol: Activity Type Activity Date Activity User E-sign Co-sign Detail Recorded Client Recorded Date Recorded By Document 06/08/23 10:46 DL [id number] 06/08/23 10:48 DL 06/08/23 10:46 Wound Care Center Nurse 3 #3 LLE Cluster -Ulcer Cleansing Not Cleansed -Primary Dressing Applied C Hydrogel ($) -Primary Dressing Covered/Secured with Dry Gauze & Roll Gauze, Secured with Tape geoff -Stockings Yes Left -Lotion applied to leg before Yes compression wrap Right -Lotion applied to leg before Yes compression wrap Treatment Response Procedure Tolerated Well Pain Scale: 0-10 Numeric Is Patient Pain Free? Yes WC - Visit Discharge Discharge Condition Stable Ambulatory Status Ambulatory Transportation Private Auto Assessment/Plan Assessment/Plan (1) Venous stasis dermatitis of left lower extremity: CODE(S): I87.2 - Venous insufficiency (chronic) (peripheral) (2) Chronic venous hypertension with inflammation involving left side: CODE(S): I87.322 - Chronic venous hypertension (idiopathic) with inflammation of left lower extremity (3) Leg swelling: CODE(S): M79.89 - Other specified soft tissue disorders (4) Chronic venous insufficiency: CODE(S): I87.2 - Venous insufficiency (chronic) (peripheral) (5) Lipodermatosclerosis: CODE(S): I83.10 - Varicose veins of unspecified lower extremity with inflammation QUALIFIERS: Laterality: bilateral Qualified Code(s): I83.11 - Varicose veins of right lower extremity with inflammation; I83.12 - Varicose veins of left lower extremity with inflammation (6) Leg pain: CODE(S): M79.606 - Pain in leg, unspecified QUALIFIERS: Laterality: bilateral Qualified Code(s): M79.604 - Pa in in right leg; M79.605 - Pain in left leg (7) Hyperlipidemia: CODE(S): E78.5 - Hyperlipidemia, unspecified (8) Hypertension: CODE(S): I10 - Essential (primary) hypertension (9) Hyperpigmentation: CODE(S): L81.9 - Disorder of pigmentation, unspecified (10) Morbid obesity: CODE(S): E66.01 - Morbid (severe) obesity due to excess calories PLAN: Plan This is a 53-year-old male with a longstanding history of chronic venous disease. He has been previously treated at this facility by conservative means. In fact, endothermal venous ablation of superficial vein incompetence has been considered in the past, but the patient failed to follow through. The patient presented with bilateral lower extremity swelling and edema, and venous stasis dermatitis in the left gaiter area. Hyperpigmentation and lipodermatosclerosis are noted in the right gaiter area. We have reinforced the importance of conservative treatment measures relative to the management of the patient's lower extremity symptoms and manifestations. He claims to sleep on a flat mattress at night. Leg elevation, to heart level or higher, has been encouraged even during daytime hours. Ambulation and activity has been encouraged. Prolonged idle sitting has been discouraged. 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 The demands of his job are counter to recommendations for leg elevation and avoidance of prolonged idle sitting. The patient has been urged to take some days off from work, in order to stay home with his legs elevated. The patient exhibits reluctance to do so. Weight loss has been strongly recommended. There had been significant improvement in the denudation and erythema in the left gaiter area with recent use of Lotrisone cream 1% which was applied twice daily. This was discontinued last week, and there appears to have been a recurrence of erythema and excoriation in the left gaiter area. Therefore, we are to reinitiate the use of Lotrisone cream 1% topically, which will be applied twice daily. There are no kathy open wounds or ulcerations, with only scattered, small, superficial excoriations remaining. The patient is to continue using his CircAid Velcro compression garments in the lower extremities bilaterally. Leg elevation and avoidance of prolonged idle sitting has again been encouraged. 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 Conservative treatment measures will be required for the long-term. The p atient has been encouraged to lose weight voluntarily. A venous duplex examination has been obtained, which reveals incompetence of the left great saphenous vein, but no other significant superficial incompetence in the left lower extremity. In the right lower extremity, the great saphenous vein, small saphenous vein, and 3 accessory saphenous veins are incompetent. The patient will likely ultimately be a candidate for endovenous laser ablation of the left great saphenous vein. However, weight loss prior to intervention is desirable, and the patient has been strongly encouraged to pursue this objective. Weight loss has been encouraged as a prelude to interventional management. Finally, we are to assist the patient in procurement of mechanical pneumatic compression garments for use in the lower extremities. Because he is known to drive his truck for long distances 7 days/week, it is felt that the pneumatic compression pumps can be utilized by the patient even while driving his truck. It is hoped that the addition of this modality may provide additional benefit in the venous stasis manifestations noted in his left lower extremity. It appears as though the patient will soon receive ambulatory pneumatic compression pumps made by child psychiatrist [employer]zu[employer]. He has been measured, and receipt of the pumps is awaited. It is anticipated that these mechanical pneumatic pumps will hasten the recovery process relative to the patient's chronic venous disease and its manifestations, and be important as an implementation long-term. 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 Total time: 26 minutes.
== END 2023-06-28 23:59 | disposition home or self-care (01) ==
LOC: WC 08:15
PROVIDERS: PCP Nurse Practitioner Family; Referring Provider Nurse Practitioner Family; Visit Provider Surgery
DX: I83.11 Varicose veins of right lower extremity with inflammation (principal); E66.01 Morbid (severe) obesity due to excess calories; Z68.43 Body mass index [BMI] 50.0-59.9, adult; I83.12 Varicose veins of left lower extremity with inflammation; S80.812A Abrasion, left lower leg, initial encounter; X58.XXXA Exposure to other specified factors, initial encounter; I87.322 Chronic venous hypertension (idiopathic) with inflammation of left lower extremity; M79.604 Pain in right leg; M79.605 Pain in left leg; I10 Essential (primary) hypertension; E78.5 Hyperlipidemia, unspecified; Z79.82 Long term (current) use of aspirin; Z79.899 Other long term (current) drug therapy
CPT/HCPCS: 99213; G0463

== ENCOUNTER 2023-07-06 08:03 | Outpatient (RCR) | payer BC, SELFPAY ==
[2023-06-29 00:13] VITALS: BP 125/53; PULSE 62; RESP 20; TEMP 36.2; BMI 50.3
[2023-07-06 08:08] VITALS: BP 140/69; PULSE 59; RESP 20; TEMP 36.4; BMI 50.3
--- NOTE | 2023-07-06 08:35 | PCM.WC.HP ---
History of Present Illness Date of Service: 07/06/23 Chief Complaint: Venous stasis dermatitis with swelling and edema in the left lower extremity History of Wound: This is a 53-year-old male with a longstanding history of chronic venous disease. He has previously been treated at this facility for a venous stasis ulceration in the right lower extremity. He presented on this occasion with venous stasis dermatitis in the left lower extremity, associated with swelling and edema. The dermatitic changes, swelling, and edema in the left lower extremity had been present for nearly 1 year. He was treated with doxycycline 100 mg p.o. twice daily, as prescribed by his primary care physician. He was using Xeroform topically. The patient is morbidly obese. He denies a history of deep vein thrombosis in the past. He claims to sleep on a flat mattress at night. 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 He possesses CircAid Velcro compression garments, which are in suitable condition, and which he claims to wear on a daily basis. A venous duplex examination performed on July 08, 2021, revealed incompetence of the right great saphenous vein, right small saphenous vein, right accessory saphenous vein in the distal thigh, left great saphenous vein, and left small saphenous vein. [facility] Medical History Chronic venous hypertension with inflammation involving left side Chronic venous insufficiency Hyperlipidemia Hyperpigmentation Hypertension Leg pain Leg swelling Lipodermatosclerosis Morbid obesity Venous hypertension, chronic, with inflammation Venous hypertension, chronic, with ulcer and inflammation Venous stasis dermatitis of left lower extremity Venous stasis ulcer Home Medications furosemide 40 mg tablet 40 mg PO BID 06/24/21 [History Last Taken Unknown] lansoprazole 30 mg capsule,delayed release 30 mg PO DAILY 06/24/21 [History Last Taken Unknown] losartan 100 mg tablet 100 mg PO DAILY 06/24/21 [History Last Taken Unknown] pravastatin 10 mg tablet 10 mg PO DAILY 06/24/21 [History Last Taken Unknown] aspirin 81 mg tablet,delayed release mg 03/02/23 [History Last Taken Unknown] doxycycline hyclate 100 mg tablet 100 mg PO DAILY 03/02/23 [History Last Taken Unknown] Allergy/AdvReac Type Severity Reaction Status Date / Time No Known Allergies Allergy Verified 03/02/23 08:30 Surgical History H/O umbilical hernia repair Social History 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 General Appearance: cooperative, comfortable, well kempt and well developed Orientation / Consciousness: awake, oriented to person, oriented to place and oriented to time HEENT normocephalic, head/scalp atraumatic and hearing grossly normal bilaterally Head and Scalp: normal to inspection, normocephalic and atraumatic External Ear: external ears normal Eyes PERRL and EOMs intact bilaterally General Eye: normal appearance of both eyes Resp normal respiratory effort, normal air movement, no retractions and no use of accessory muscles Effort and Inspection: able to speak in complete sentences Extremity no calf tenderness Extremity Narrative: Chronic venous changes are noted in the patient's right lower extremity. These include hyperpigmentation and lipodermatosclerosis. General Extremity: Negative for clubbing or cyanosis Skin Wound Narrative: Minimal swelling and edema are noted in the lower extremities bilaterally. Hyperpigmentation and lipodermatosclerosis are noted in the right gaiter area. On the left, the area of venous stasis dermatitis has resolved. Currently, there are no open wounds or ulcerations. There is no sign of infection or cellulitis. There has been significant improvement in recent weeks. Neuro oriented x3, CN's II-XII intact bilaterally, moves all extremities and no focal motor deficits Sensorium / Orientation: awake, alert, oriented to person, oriented to place and oriented to time Psych Appearance: grossly normal and appropriate Attitude: calm Activity / Motor Behavior: appropriate eye contact Speech: normal speech Mood & Affect: euthymic mood Thought Process: normal thought process Thought Content: normal thought content Attention / Concentration: attention grossly intact Debridement Note Debridement Note No debridement was completed: No debridement was completed today (There are no open wounds or ulcerations.) Post-Debridement Measurements and Additional Note: Post-Debridement Measurements/Treatment WC - Nurse 1 - General Ulcer Assessment Start: 07/06/23 08:08 Freq: Status: Active Protocol: JUSTINE Activity Type Activity Date Activity User E-sign Co-sign Detail Recorded Client Recorded Date Recorded By Document 07/06/23 08:08 MW Desktop 07/06/23 08:12 MW 07/06/23 08:08 WC - Today's Visit Information Type of service Follow-up Visit (Physician/CASE OPERATOR ) Arrival Mode Ambulatory Transfer Assistance None Accompanied by self Patient Identification Verified (Name & Yes ) Patient Requires Transmission-Based No Precautions Safety Precautions NA Height and Weight Body Mass Index (BMI) 50.3 BMI Classification Obese Vital Signs Temperature (97.8 F-99.1 F) 97.5 F L Temperature Source Temporal Pulse Rate (60-100) 59 L Pulse Location Monitor Respiratory Rate (12-18) 20 H Respiratory rate source Observation Blood Pressure (90/60-120/80) 140/69 H Blood Pressure Mean 92 Source Monitor History Since Last Visit- (Skip if this is Patient's initial visit) Have you changed medications since your No last visit? Any new allergies or adverse reactions No Had a fall/change in ADL's that may No increase risk of falls Signs or symptoms of abuse and/or No neglect since last visit Have you been in the hospital since your No last visit? Has dressing in place as prescribed No Has compression in place as prescribed Yes Has offloadiing in place as prescribed N/A Experienced any changes in pain level or No management Pain Scale: 0-10 Numeric Is Patient Pain Free? Yes - Nurse 1 - General Ulcer Measurement Start: 07/06/23 08:08 Freq: Status: Active Protocol: Activity Type Activity Date Activity User E-sign Co-sign Detail Recorded Client Recorded Date Recorded By Document 07/06/23 08:08 MW Desktop 07/06/23 08:12 MW 07/06/23 08:08 Wound Center Nurse 1 #3 LLE Cluster -Current Size (cm) - Length 0 -Current Size (cm) - Width 0 -Total Square Cm 0 -Photo Taken Yes -Exudate Amt None Present -Wound Margin Flat & Intact -Granulation Amt Large (67-100%) -Granulation Quality [place] -Necrosis Amt None Present (0 %) -Structure Exposed N/A -Texture (Earlene-wound Skin Appearance) Scarring -Moisture (Earlene-wound Skin Appearance) Dry/Scaly -Color (Earlene-wound Skin Appearance) Hemosiderin Staining -Temperature (Earlene-wound Skin No Abnormality Appearance) (Pt Warm) -Ulcer Cleansing Soap and Water -Foul Odor after Cleansing No Left Calf (cm) 50.5 Left Ankle (cm) 30.5 WC - Nurse 2 - General Ulcer CM Notes Start: 07/06/23 08:08 Freq: Status: Active Protocol: Activity Type Activity Date Activity User E-sign Co-sign Detail Recorded Client Recorded Date Recorded By Document 07/06/23 08:29 PL [id number] 07/06/23 08:29 PL 07/06/23 08:29 Wound Center Nurse 2 #3 LLE Cluster -Procedure Performed No -Wound/Ulcer Outcome Healed- Epithelialized Pain Scale: 0-10 Numeric Is Patient Pain Free? Yes Assessment/Plan Assessment/Plan (1) Venous stasis dermatitis of left lower extremity: CODE(S): I87.2 - Venous insufficiency (chronic) (peripheral) (2) Chronic venous hypertension with inflammation involving left side: CODE(S): I87.322 - Chronic venous hypertension (idiopathic) with inflammation of left lower extremity (3) Leg swelling: CODE(S): M79.89 - Other specified soft tissue disorders (4) Chronic venous insufficiency: CODE(S): I87.2 - Venous insufficiency (chronic) (peripheral) (5) Lipodermatosclerosis: CODE(S): I83.10 - Varicose veins of unspecified lower extremity with inflammation QUALIFIERS: Laterality: bilateral Qualified Code(s): I83.11 - Varicose veins of right lower extremity with inflammation; I83.12 - Varicose veins of left lower extremity with inflammation (6) Leg pain: CODE(S): M79.606 - Pain in leg, unspecified QUALIFIERS: Laterality: bilateral Qualified Code(s): M79.604 - Pain in right leg; M79.605 - Pain in left leg (7) Hyperlipidemia: CODE(S): E78.5 - Hyperlipidemia, unspecified (8) Hypertension: CODE(S): I10 - Essential (primary) hypertension (9) Hyperpigmentation: CODE(S): L81.9 - Disorder of pigmentation, unspecified (10) Morbid obesity: CODE(S): E66.01 - Morbid (severe) obesity due to excess calories PLAN: Plan This is a 53-year-old male with a longstanding history of chronic venous disease. He has been previously treated at this facility by conservative means. In fact, endothermal venous ablation of superficial vein incompetence has been considered in the past, but the patient failed to follow through. The patient presented with bilateral lower extremity swelling and edema, and venous stasis dermatitis in the left gaiter area. Hyperpigmentation and lipodermatosclerosis are noted in the right gaiter area. We have reinforced the importance of conservative treatment measures relative to the management of the patient's lower extremity symptoms and manifestations. He claims to sleep on a flat mattress at night. Leg elevation, to heart level or higher, has been encouraged even during daytime hours. Ambulation and activity has been encouraged. Prolonged idle sitting has been discouraged. 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 The demands of his job are counter to recommendations for leg elevation and avoidance of prolonged idle sitting. The patient has been urged to take some days off from work, in order to stay home with his legs elevated. The patient exhibits reluctance to do so. Weight loss has been strongly recommended. In recent weeks, there has been significant improvement in the erythematous dermatitis in his left lower extremity with the use of Lotrisone cream 1% topically twice daily. At present, the swelling and edema in the patient's left lower extremity is at a minimum, and the dermatitis and superficial ulcerations are now resolved. The patient is to continue using his CircAid Velcro compression garments in the lower extremities bilaterally. Leg elevation and avoidance of prolonged idle sitting has again been encouraged. Conservative treatment measures will be required for the long-term. The patient has been encouraged to lose weight voluntarily. A venous duplex examination has been obtained, which reveals incompetence of the left great saphenous vein, but no other significant superficial incompetence in the left lower extremity. In the right lower extremity, the great saphenous vein, small saphenous vein, and 3 accessory saphenous veins are incompetent. The patient will likely ultimately be a candidate for endovenous laser ablation of the left great saphenous vein. However, weight loss prior to intervention is desirable, and the patient has been strongly encouraged to pursue this objective. Weight loss has been encouraged as a prelude to interventional management. The patient continues to await the delivery of his pneumatic mechanical compression pumps, which she is to use twice or 3 times daily. It is anticipated that these pumps will be of benefit even while the patient is driving long distances at his job as a regional intermodal truck driver each day. It is hoped that the addition of this modality may provide additional benefit in the venous stasis in his left lower extremity. The patient is to be discharged, and will follow-up henceforth on an as-needed basis. He is to continue with the conservative treatment measures which have been discussed repeatedly relative to his chronic lower extremity swelling and venous disease. Total time: 25 minutes.
== END 2023-07-06 14:08 | disposition home or self-care (01) ==
LOC: WC 08:03
PROVIDERS: PCP Nurse Practitioner Family; Referring Provider Nurse Practitioner Family; Visit Provider Surgery
DX: I87.322 Chronic venous hypertension (idiopathic) with inflammation of left lower extremity (principal); E66.01 Morbid (severe) obesity due to excess calories; Z68.43 Body mass index [BMI] 50.0-59.9, adult; I83.12 Varicose veins of left lower extremity with inflammation; I10 Essential (primary) hypertension; E78.5 Hyperlipidemia, unspecified; M79.604 Pain in right leg; M79.605 Pain in left leg; Z79.82 Long term (current) use of aspirin; Z79.899 Other long term (current) drug therapy
CPT/HCPCS: 99213; G0463

== ENCOUNTER 2023-09-21 08:30 | Outpatient (RCR) | payer BC, SELFPAY ==
[2023-09-07 08:47] VITALS: BP 133/61; PULSE 71; RESP 18; TEMP 36.1; BMI 51.7
--- NOTE | 2023-09-07 13:03 | PCM.WC.HP ---
History of Present Illness Date of Service: 09/07/23 Chief Complaint: Venous stasis dermatitis with swelling and edema bilaterally; venous stasis ulcerations of the left lower extremity History of Wound: This is a 53-year-old male with a longstanding history of chronic venous disease. He has previously been treated at this facility for venous stasis ulcerations of both lower extremities. He was most recently treated only several months ago. He presented at this time with bilateral lower extremity swelling and edema, with venous ulcerations in the left lower extremity. Upon his prior discharge, the patient had been instructed in the use of his Velcro compression garments. He had been advised to elevate his lower extremities as much as possible, to heart level, or higher. Efforts have been made to obtain pneumatic mechanical compression pumps, but the patient's insurance did not allow for this benefit. The patient has had chronic venous stasis dermatitis in his lower extremities for several years. 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 His profession requires him to sit for prolonged periods. The patient is morbidly obese. He denies a history of deep vein thrombosis in the past. He claims to sleep on a flat mattress at night. [facility] Medical History Chronic venous hypertension w/ulcer and inflammation involv left side Chronic venous hypertension with inflammation involving left side Chronic venous insufficiency Hyperlipidemia Hyperpigmentation Hypertension Leg pain Leg swelling Lipodermatosclerosis Morbid obesity Venous hypertension, chronic, with inflammation Venous hypertension, chronic, with ulcer and inflammation Venous stasis dermatitis of left lower extremity Venous stasis ulcer Venous ulcer of left leg Home Medications furosemide 40 mg tablet 40 mg PO BID 06/24/21 [History Last Taken Unknown] lansoprazole 30 mg capsule,delayed release 30 mg PO DAILY 06/24/21 [History Last Taken Unknown] losartan 100 mg tablet 100 mg PO DAILY 06/24/21 [History Last Taken Unknown] pravastatin 10 mg tablet 10 mg PO DAILY 06/24/21 [History Last Taken Unknown] aspirin 81 mg tablet,delayed release mg 03/02/23 [History Last Taken Unknown] Allergy/AdvReac Type Severity Reaction Status Date / Time No Known Allergies Allergy Verified 03/02/23 08:30 Surgical History H/O umbilical hernia repair Social History 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 General Appearance: cooperative, comfortable, well kempt and well developed Orientation / Consciousness: awake, oriented to person, oriented to place and oriented to time HEENT normocephalic, head/scalp atraumatic and hearing grossly normal bilaterally Head and Scalp: normal to inspection, normocephalic and atraumatic External Ear: external ears normal Eyes PERRL and EOMs intact bilaterally General Eye: normal appearance of both eyes Resp normal respiratory effort, normal air movement, no retractions and no use of accessory muscles Effort and Inspection: able to speak in complete sentences Extremity no calf tenderness Extremity Narrative: Chronic venous changes are noted in the patient's right lower extremity. These include hyperpigmentation and lipodermatosclerosis. General Extremity: Negative for clubbing or cyanosis Skin Wound Narrative: Moderate swelling and edema are noted in the patient's lower extremities bilaterally. Hyperpigmentation and lipodermatosclerosis are noted in the gaiter areas bilaterally. Venous stasis dermatitis is noted in the lower extremities bilaterally, particularly on the left. There are several ulcerations noted in the left gaiter area, the dimensions of which are documented elsewhere. There is a moderate amount of bioburden and nonviable tissue present. Multiple superficial excoriations are noted bilaterally. There is no obvious sign of infection or cellulitis. Neuro oriented x3, CN's II-XII intact bilaterally, moves all extremities and no focal motor deficits Sensorium / Orientation: awake, alert, oriented to person, oriented to place and oriented to time Psych Appearance: grossly normal and appropriate Attitude: calm Activity / Motor Behavior: appropriate eye contact Speech: normal speech Mood & Affect: euthymic mood Thought Process: normal thought process Thought Content: normal thought content Attention / Concentration: attention grossly intact Debridement Note Debridement Note Wound debrided: Left lower extremity venous ulcerations Laterality: Left Type of Debridement: Excisional debridement Anesthesia Used: 5% Lidocaine Gel Depth: Down to and including healthy tissue and in the subcutaneous layer Percentage of wound debrided: 100 Instrument Used: 5mm curette Tissue Removed: Bioburden and nonviable tissue Severity: Fat Layer Exposed Amount of bleeding with debridement: Mild Bleeding Controlled with: Compression and gauze Patient tolerated procedure: Patient tolerated procedure well Post-Debridement Measurements and Additional Note: Post-Debridement Measurements/Treatment - Nurse 1 - General Ulcer Assessment Start: 09/07/23 08:46 Freq: Status: Active Protocol: JUSTINE Activity Type Activity Date Activity User E-sign Co-sign Detail Recorded Client Recorded Date Recorded By Document 09/07/23 08:47 Desktop 09/07/23 09:06 RB 09/07/23 08:47 - Today's Visit Information Type of service 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 ) Arrival Mode Ambulatory Transfer Assistance None Patient Identification Verified (Name & Yes ) Patient Requires Transmission-Based No Precautions Height and Weight Height 5 ft 9 in Weight 350 lb Weight in Pounds 350.0 lbs Body Mass Index (BMI) 51.7 BMI Classification Obese BSA - Priscilla 2.62 Vital Signs Temperature (97.8 F-99.1 F) 97 F L Temperature Source Temporal Pulse Rate (60-100) 71 Pulse Location Monitor Respiratory Rate (12-18) 18 Respiratory rate source Observation Blood Pressure (90/60-120/80) 133/61 H Blood Pressure Mean 85 Source Monitor Position Semi-Fowlers Blood Pressure Location Left Arm History Since Last Visit- (Skip if this is Patient's initial visit) Have you changed medications since your No last visit? Any new allergies or adverse reactions No Had a fall/change in ADL's that may No increase risk of falls Signs or symptoms of abuse and/or No neglect since last visit Have you been in the hospital since your No last visit? Has dressing in place as prescribed Yes Has compression in place as prescribed Yes Has offloadiing in place as prescribed No Experienced any changes in pain level or No management Pain Scale: 0-10 Numeric Is Patient Pain Free? No bilat legs -Description Sharp,Burning -Intensity 8 -Duration (hours) Acute -Pain Behavior Withdrawal from Touch -Pain Aggravating Factors ADL's,Standing -Alleviating Factors/Interventions Medication -Effectiveness of Alleviating Factor/ Minimally Intervention effective Culture/Restorationism/Splitting Machine Operator Cultural/Restorationism Needs that may affect No Treatment Plan Would you allow our hospital speech and language clinician to No meet you for the purpose of spiritual/ emotional support? Splitting Machine Operator to contact place of judaism No Teaching: Wound Center *Welcome to the Wound Center -Person Taught Patient -Teaching Method Discussion, Demonstration -Response to teaching Verbalize understanding WC - Nurse 1 - General Ulcer Measurement Start: 09/07/23 08:46 Freq: Status: Active Protocol: Activity Type Activity Date Activity User E-sign Co-sign Detail Recorded Client Recorded Date Recorded By Document 09/07/23 08:47 RB Desktop 09/07/23 09:06 RB 09/07/23 08:47 Wound Center Nurse 1 7. RLE anterior -Combined with other wound No -Current Size (cm) - Length 14 -Current Size (cm) - Width 5 -Current Size (cm) - Depth 0.1 -Total Square Cm 70 -Photo Taken Yes -Tunneling No -Undermining/Tunneling No -Circular Undermining No -Exudate Amt Large -Exudate Type Sanguineous -Wound Margin Distinct, Outline Attached -Granulation Amt Large (67-100%) -Granulation Quality [place] -Slough/Fibrin Yes -Necrosis Amt None Present (0 %) -Necrotic Tissue Type Adherent Slough -Structure Exposed N/A -Texture (Earlene-wound Skin Appearance) Assessed, Excoriation -Moisture (Earlene-wound Skin Appearance) Assessed -Color (Earlene-wound Skin Appearance) Assessed -Temperature (Earlene-wound Skin No Abnormality Appearance) (Pt Warm) -Tenderness on Palpation (Earlene-wound No Skin Appearance) -Ulcer Cleansing Wound Cleanser -Anesthetic Used 5% Lidocaine Gel 6. RLE lateral -Combined with other wound No -Current Size (cm) - Length 13 -Current Size (cm) - Width 12.5 -Current Size (cm) - Depth 0.1 -Total Square Cm 162.5 -Photo Taken Yes -Tunneling No -Undermining/Tunneling No -Circular Undermining No -Exudate Amt Large -Exudate Type Serosanguineous -Wound Margin Distinct, Outline Attached -Granulation Amt Medium (34-66%) -Granulation Quality [place] -Slough/Fibrin Yes -Necrosis Amt Medium (34-66%) -Necrotic Tissue Type Adherent Slough -Structure Exposed N/A -Texture (Earlene-wound Skin Appearance) Assessed, Excoriation -Moisture (Earlene-wound Skin Appearance) Assessed -Color (Earlene-wound Skin Appearance) Assessed -Temperature (Earlene-wound Skin No Abnormality Appearance) (Pt Warm) -Tenderness on Palpation (Earlene-wound No Skin Appearance) -Ulcer Cleansing Wound Cleanser -Foul Odor after Cleansing Yes, Due to Product Use -Anesthetic Used 5% Lidocaine Gel 5. LLE anterior -Combined with other wound No -Current Size (cm) - Length 15 -Current Size (cm) - Width 7.5 -Current Size (cm) - Depth 0.1 -Total Square Cm 112.5 -Photo Taken Yes -Tunneling No -Undermining/Tunneling No -Circular Undermining No -Exudate Amt Large -Exudate Type Serosanguineous -Wound Margin Distinct, Outline Attached -Granulation Amt Medium (34-66%) -Granulation Quality [place] -Slough/Fibrin Yes -Necrosis Amt Medium (34-66%) -Necrotic Tissue Type Adherent Slough -Structure Exposed N/A -Texture (Earlene-wound Skin Appearance) Assessed, Excoriation -Moisture (Earlene-wound Skin Appearance) Dry/Scaly -Color (Earlene-wound Skin Appearance) Assessed -Temperature (Earlene-wound Skin No Abnormality Appearance) (Pt Warm) -Tenderness on Palpation (Earlene-wound No Skin Appearance) -Ulcer Cleansing Wound Cleanser -Foul Odor after Cleansing No -Anesthetic Used 5% Lidocaine Gel 4. LLE post -Combined with other wound No -Current Size (cm) - Length 9 -Current Size (cm) - Width 5 -Current Size (cm) - Depth 0.2 -Total Square Cm 45 -Photo Taken Yes -Tunneling No -Undermining/Tunneling No -Circular Undermining No -Exudate Amt Large -Exudate Type Serosanguineous -Wound Margin Distinct, Outline Attached -Granulation Amt Medium (34-66%) -Granulation Quality [place] -Slough/Fibrin Yes -Necrosis Amt Medium (34-66%) -Necrotic Tissue Type Adherent Slough -Structure Exposed N/A -Texture (Earlene-wound Skin Appearance) Assessed -Moisture (Earlene-wound Skin Appearance) Dry/Scaly -Color (Earlene-wound Skin Appearance) Assessed -Temperature (Earlene-wound Skin No Abnormality Appearance) (Pt Warm) -Tenderness on Palpation (Earlene-wound No Skin Appearance) -Ulcer Cleansing Wound Cleanser -Foul Odor after Cleansing No -Anesthetic Used 5% Lidocaine Gel Lower Limb Edema Present Yes Right Calf (cm) 49.2 Right Ankle (cm) 28 Left Calf (cm) 49.5 Left Ankle (cm) 30.2 - Nurse 3 - General Ulcer D/C NN Start: 09/07/23 08:46 Freq: Status: Active Protocol: Activity Type Activity Date Activity User E-sign Co-sign Detail Recorded Client Recorded Date Recorded By Document 09/07/23 09:57 RB Desktop 09/07/23 09:59 RB 09/07/23 09:57 Wound Care Center Nurse 3 7. RLE anterior -Ulcer Cleansing Rinsed/ Irrigated with Saline -Primary Dressing Applied Optilok 8x12, Promogran -Optilok 8x12 2 -Promogran 5 6. RLE lateral -Other Dressing promogran/ superabsorber 5. LLE anterior -Other Dressing promogran 4. LLE post -Other Dressing promogran / superabsorber bilat -Multi-Layered Wrap Application Unna Boot - Bilateral ($) Treatment Response Procedure Tolerated Well Pain Scale: 0-10 Numeric Is Patient Pain Free? Yes Teaching: Wound Center Control Swelling with Leg Elevation -Person Taught Patient -Teaching Method Discussion -Response to teaching Verbalize understanding WC - Visit Discharge Discharge Condition Stable Ambulatory Status Ambulatory Transportation Private Auto Medication Reconcilliation completed & No provided to patient/care provider Clinical Summary of Care Provided Yes Assessment/Plan Assessment/Plan (1) Venous ulcer of left leg: CODE(S): I83.029 - Varicose veins of left lower extremity with ulcer of unspecified site; L97.929 - Non-pressure chronic ulcer of unspecified part of left lower leg with unspecified severity (2) Chronic venous hypertension w/ulcer and inflammation involv left side: CODE(S): I87.332 - Chronic venous hypertension (idiopathic) with ulcer and inflammation of left lower extremity (3) Chronic venous hypertension with inflammation involving left side: CODE(S): I87.322 - Chronic venous hypertension (idiopathic) with inflammation of left lower extremity (4) Venous stasis dermatitis of left lower extremity: CODE(S): I87.2 - Venous insufficiency (chronic) (peripheral) (5) Venous hypertension, chronic, with ulcer and inflammation: CODE(S): I87.339 - Chronic venous hypertension (idiopathic) with ulcer and inflammation of unspecified lower extremity; L97.909 - Non-pressure chronic ulcer of unspecified part of unspecified lower leg with unspecified severity QUALIFIERS: Laterality: right Qualified Code(s): I87.331 - Chronic venous hypertension (idiopathic) with ulcer and inflammation of right lower extremity; L97.919 - Non-pressure chronic ulcer of unspecified part of right lower leg with unspecified severity (6) Leg swelling: CODE(S): M79.89 - Other specified soft tissue disorders (7) Leg pain: CODE(S): M79.606 - Pain in leg, unspecified QUALIFIERS: Laterality: bilateral Qualified Code(s): M79.604 - Pain in right leg; M79.605 - Pain in left leg (8) Hyperlipidemia: CODE(S): E78.5 - Hyperlipidemia, unspecified (9) Hypertension: CODE(S): I10 - Essential (primary) hypertension (10) Lipodermatosclerosis: CODE(S): I83.10 - Varicose veins of unspecified lower extremity with inflammation QUALIFIERS: Laterality: bilateral Qualified Code(s): I83.11 - Varicose veins of right lower extremity with inflammation; I83.12 - Varicose veins of left lower extremity with inflammation (11) Hyperpigmentation: CODE(S): L81.9 - Disorder of pigmentation, unspecified (12) Morbid obesity: CODE(S): E66.01 - Morbid (severe) obesity due to excess calories (13) H/O umbilical hernia repair: CODE(S): Z98.890 - Other specified postprocedural states; Z87.19 - Personal history of other diseases of the digestive system (14) Chronic venous insufficiency: CODE(S): I87.2 - Venous insufficiency (chronic) (peripheral) PLAN: Plan This is a 53-year-old male with a longstanding history of chronic venous insufficiency, venous hypertension with inflammation and ulceration, and prior episodes of venous stasis ulcerations. He also experiences chronic swelling and edema in his lower extremities. 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 The patient's occupation prevents him from elevating his lower extremities as recommended. The nature of his occupation requires long periods of idle sitting. A lengthy discussion has been undertaken as to the appropriate conservative treatment measures relative to the patient's presenting symptoms and manifestations. It has been recommended that the patient take several days off from work, and remains at home with his legs elevated. Leg elevation is to occur as much as possible, during nighttime hours, and during daylight hours as well. The patient's legs are to be at heart level, or higher. Prolonged idle sitting is to be avoided. Activity has been encouraged. Weight loss has also been recommended. Swab cultures have been obtained of the left lower extremity ulcerations due to their unfavorable appearance. Cultures have been obtained for both aerobic and anaerobic bacterial growth. Results will be awaited. We are to apply Promogran topically to the ulcerations in the left lower extremity. Unna boots will be applied bilaterally, with plans to change twice weekly. The patient is return in 1 week for reevaluation. Total time: 50 minutes
--- NOTE | 2023-09-10 09:13 | NURSING ---
pt had a very foul odor coming from wounds. Wound to the right lower ext had bright green purulent drainage. The right lower ext was red and warm to the touch. The pt stated he has been very tired. Vitals were stable. BP 124/63, HR 69 temp was 98.0. Spoke to Dr. Choe regarding pt right lower leg a wound culture was ordered. The pt was instructed to go to the ER if he starts to feel weak or spikes a fever.
[2023-09-10 10:03] VITALS: BP 124/63; PULSE 69; RESP 18; TEMP 36.7
[2023-09-14 09:07] VITALS: BP 152/48; PULSE 62; RESP 18; TEMP 35.6; BMI 51.7
--- NOTE | 2023-09-14 09:35 | HP.PCM_ITS ---
History of Present Illness Date of Service: 09/14/23 Chief Complaint: Venous stasis dermatitis with swelling and edema bilaterally; venous stasis ulcerations of the left lower extremity History of Wound: This is a 53-year-old male with a longstanding history of chronic venous disease. He has previously been treated at this facility for venous stasis ulcerations of both lower extremities. He was most recently treated only several months ago. He presented at this time with bilateral lower extremity swelling and edema, with venous ulcerations in the left lower extremity. Upon his prior discharge, the patient had been instructed in the use of his Velcro compression garments. He had been advised to elevate his lower extremities as much as possible, to heart level, or higher. Efforts have been made to obtain pneumatic mechanical compression pumps, but the patient's insurance did not allow for this benefit. The patient has had chronic venous stasis dermatitis in his lower extremities for several years. 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 His profession requires him to sit for prolonged periods. The patient is morbidly obese. He denies a history of deep vein thrombosis in the past. He claims to sleep on a flat mattress at night. [facility] Medical History Chronic venous hypertension w/ulcer and inflammation involv left side Chronic venous hypertension with inflammation involving left side Chronic venous insufficiency Hyperlipidemia Hyperpigmentation Hypertension Leg pain Leg swelling Lipodermatosclerosis Morbid obesity Venous hypertension, chronic, with inflammation Venous hypertension, chronic, with ulcer and inflammation Venous stasis dermatitis of left lower extremity Venous stasis ulcer Venous ulcer of left leg Home Medications furosemide 40 mg tablet 40 mg PO BID 06/24/21 [History Last Taken Unknown] lansoprazole 30 mg capsule,delayed release 30 mg PO DAILY 06/24/21 [History Last Taken Unknown] losartan 100 mg tablet 100 mg PO DAILY 06/24/21 [History Last Taken Unknown] pravastatin 10 mg tablet 10 mg PO DAILY 06/24/21 [History Last Taken Unknown] aspirin 81 mg tablet,delayed release mg 03/02/23 [History Last Taken Unknown] Allergy/AdvReac Type Severity Reaction Status Date / Time No Known Allergies Allergy Verified 03/02/23 08:30 Surgical History H/O umbilical hernia repair Social History 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 General Appearance: cooperative, comfortable, well kempt and well developed Orientation / Consciousness: awake, oriented to person, oriented to place and oriented to time HEENT normocephalic, head/scalp atraumatic and hearing grossly normal bilaterally Head and Scalp: normal to inspection, normocephalic and atraumatic External Ear: external ears normal Eyes PERRL and EOMs intact bilaterally General Eye: normal appearance of both eyes Resp normal respiratory effort, normal air movement, no retractions and no use of accessory muscles Effort and Inspection: able to speak in complete sentences Extremity no calf tenderness Extremity Narrative: Chronic venous changes are noted in the patient's right lower extremity. These include hyperpigmentation and lipodermatosclerosis. General Extremity: Negative for clubbing or cyanosis Skin Wound Narrative: Moderate swelling and edema are noted in the patient's lower extremities bilaterally. Hyperpigmentation and lipodermatosclerosis are noted in the gaiter areas bilaterally. Severe venous stasis dermatitis is noted in the gaiter areas of both lower extremities, associated with scattered superficial excoriations, some of which are large. Most are generally clean, pink, and healthy in appearance. A large excoriation on the right pretibial surface demonstrates a large amount of necrotic and nonviable tissue. There has been significant improvement since the patient's last visit. Nonetheless, severe venous stasis dermatitis and excoriations persist. Locations and dimensions are documented elsewhere. There is a moderate amount of bioburden associated with each of the open excoriations. Neuro oriented x3, CN's II-XII intact bilaterally, moves all extremities and no focal motor deficits Sensorium / Orientation: awake, alert, oriented to person, oriented to place and oriented to time Psych Appearance: grossly normal and appropriate Attitude: calm Activity / Motor Behavior: appropriate eye contact Speech: normal speech Mood & Affect: euthymic mood Thought Process: normal thought process Thought Content: normal thought content Attention / Concentration: attention grossly intact Debridement Note Debridement Note Wound debrided: Right pretibial ulceration/excoriation Laterality: Right Type of Debridement: Excisional debridement Anesthesia Used: 5% Lidocaine Gel and Cetacaine Depth: Down to and including healthy tissue and in the subcutaneous layer Percentage of wound debrided: 100 Instrument Used: 5mm curette Tissue Removed: Bioburden and nonviable, necrotic tissue Severity: Fat Layer Exposed Amount of bleeding with debridement: Mild Bleeding Controlled with: Compression and gauze Patient tolerated procedure: Patient did not tolerate procedure well Post-Debridement Measurements and Additional Note: Post-Debridement Measurements/Treatment - Nurse 1 - General Ulcer Assessment Start: 09/07/23 08:46 Freq: Status: Active Protocol: JUSTINE Activity Type Activity Date Activity User E-sign Co-sign Detail Recorded Client Recorded Date Recorded By Document 09/07/23 08:47 Desktop 09/07/23 09:06 RB Document 09/14/23 09:07 RB Desktop 09/14/23 09:18 RB 09/07/23 09/14/23 08:47 09:07 - Today's Visit Information Type of service Follow-up Visit Follow-up Visit (Physician/COPY SUPERVISOR (Physician/COPY SUPERVISOR ) ) Arrival Mode Ambulatory Ambulatory Transfer Assistance None None Patient Identification Verified (Name & Yes Yes ) Patient Requires Transmission-Based No No Precautions Height and Weight Height 5 ft 9 in Weight 350 lb Weight in Pounds 350.0 lbs Body Mass Index (BMI) 51.7 51.7 BMI Classification Obese Obese BSA - Priscilla 2.62 Vital Signs Temperature (97.8 F-99.1 F) 97 F L 96.1 F L Temperature Source Temporal Temporal Pulse Rate (60-100) 71 62 Pulse Location Monitor Monitor Respiratory Rate (12-18) 18 18 Respiratory rate source Observation Observation Blood Pressure (90/60-120/80) 133/61 H 152/48 H Blood Pressure Mean 85 82 Source Monitor Monitor Position Semi-Fowlers Semi-Fowlers Blood Pressure Location Left Arm Left Arm History Since Last Visit- (Skip if this is Patient's initial visit) Have you changed medications since your No Yes last visit? Any new allergies or adverse reactions No No Had a fall/change in ADL's that may No No increase risk of falls Signs or symptoms of abuse and/or No No neglect since last visit Have you been in the hospital since your No No last visit? Has dressing in place as prescribed Yes Yes Has compression in place as prescribed Yes Yes Has offloadiing in place as prescribed No No Experienced any changes in pain level or No No management Pain Scale: 0-10 Numeric Is Patient Pain Free? No Yes bilat legs -Description Sharp,Burning Sharp,Aching -Intensity 8 7 -Duration (hours) Acute Acute -Pain Behavior Withdrawal from Withdrawal from Touch Touch -Pain Aggravating Factors ADL's,Standing Sitting, Debridement -Alleviating Factors/Interventions Medication Medication -Effectiveness of Alleviating Factor/ Minimally Moderately Intervention effective effective Culture/Anabaptist/Kindergarten Classroom Teacher Cultural/Anabaptist Needs that may affect No Treatment Plan Would you allow our hospital community leader to No meet you for the purpose of spiritual/ emotional support? Kindergarten Classroom Teacher to contact place of adventist No Teaching: Wound Center *Welcome to the Wound Center -Person Taught Patient -Teaching Method Discussion, Demonstration -Response to teaching Verbalize understanding WC - Nurse 1 - General Ulcer Measurement Start: 09/07/23 08:46 Freq: Status: Active Protocol: Activity Type Activity Date Activity User E-sign Co-sign Detail Recorded Client Recorded Date Recorded By Document 09/07/23 08:47 RB Desktop 09/07/23 09:06 RB Document 09/14/23 09:07 RB Desktop 09/14/23 09:18 RB 09/07/23 09/14/23 08:47 09:07 Wound Center Nurse 1 7. RLE anterior -Combined with other wound No No -Current Size (cm) - Length 14 12 -Current Size (cm) - Width 5 5 -Current Size (cm) - Depth 0.1 0.1 -Total Square Cm 70 60 -Photo Taken Yes -Tunneling No No -Undermining/Tunneling No No -Circular Undermining No No -Exudate Amt Large Large -Exudate Type Sanguineous Serosanguineous -Wound Margin Distinct, Distinct, Outline Outline Attached Attached -Granulation Amt Large (67-100%) Small (1-33%) -Granulation Quality [place] -Slough/Fibrin Yes Yes -Necrosis Amt None Present (0 Large (67-100%) %) -Necrotic Tissue Type Adherent Slough Adherent Slough -Structure Exposed N/A N/A -Texture (Earlene-wound Skin Appearance) Assessed, Assessed, Excoriation Excoriation -Moisture (Earlene-wound Skin Appearance) Assessed Assessed -Color (Earlene-wound Skin Appearance) Assessed Erythema -Temperature (Earlene-wound Skin No Abnormality No Abnormality Appearance) (Pt Warm) (Pt Warm) -Tenderness on Palpation (Earlene-wound No No Skin Appearance) -Ulcer Cleansing Wound Cleanser Wound Cleanser -Foul Odor after Cleansing Yes -Anesthetic Used 5% Lidocaine 5% Lidocaine Gel Gel 6. RLE lateral -Combined with other wound No No -Current Size (cm) - Length 13 16.5 -Current Size (cm) - Width 12.5 12 -Current Size (cm) - Depth 0.1 0.2 -Total Square Cm 162.5 198.0 -Photo Taken Yes -Tunneling No No -Undermining/Tunneling No No -Circular Undermining No No -Exudate Amt Large Large -Exudate Type Serosanguineous Serosanguineous -Wound Margin Distinct, Distinct, Outline Outline Attached Attached -Granulation Amt Medium (34-66%) Small (1-33%) -Granulation Quality [place] -Slough/Fibrin Yes Yes -Necrosis Amt Medium (34-66%) Large (67-100%) -Necrotic Tissue Type Adherent Slough Adherent Slough -Structure Exposed N/A N/A -Texture (Earlene-wound Skin Appearance) Assessed, Excoriation Excoriation -Moisture (Earlene-wound Skin Appearance) Assessed Assessed -Color (Earlene-wound Skin Appearance) Assessed Assessed -Temperature (Earlene-wound Skin No Abnormality No Abnormality Appearance) (Pt Warm) (Pt Warm) -Tenderness on Palpation (Earlene-wound No No Skin Appearance) -Ulcer Cleansing Wound Cleanser Wound Cleanser -Foul Odor after Cleansing Yes, Due to Yes Product Use -Anesthetic Used 5% Lidocaine 5% Lidocaine Gel Gel 5. LLE anterior -Combined with other wound No No -Current Size (cm) - Length 15 17 -Current Size (cm) - Width 7.5 18 -Current Size (cm) - Depth 0.1 0.1 -Total Square Cm 112.5 306 -Photo Taken Yes -Tunneling No No -Undermining/Tunneling No No -Circular Undermining No No -Exudate Amt Large Large -Exudate Type Serosanguineous Serosanguineous -Wound Margin Distinct, Distinct, Outline Outline Attached Attached -Granulation Amt Medium (34-66%) Small (1-33%) -Granulation Quality [place] -Slough/Fibrin Yes Yes -Necrosis Amt Medium (34-66%) Large (67-100%) -Necrotic Tissue Type Adherent Slough Adherent Slough -Structure Exposed N/A N/A -Texture (Earlene-wound Skin Appearance) Assessed, Assessed, Excoriation Excoriation -Moisture (Earlene-wound Skin Appearance) Dry/Scaly Assessed -Color (Earlene-wound Skin Appearance) Assessed Assessed -Temperature (Earlene-wound Skin No Abnormality No Abnormality Appearance) (Pt Warm) (Pt Warm) -Tenderness on Palpation (Earlene-wound No No Skin Appearance) -Ulcer Cleansing Wound Cleanser Wound Cleanser -Foul Odor after Cleansing No Yes -Anesthetic Used 5% Lidocaine 5% Lidocaine Gel Gel 4. LLE post -Combined with other wound No No -Current Size (cm) - Length 9 8 -Current Size (cm) - Width 5 5 -Current Size (cm) - Depth 0.2 0.2 -Total Square Cm 45 40 -Photo Taken Yes -Tunneling No No -Undermining/Tunneling No No -Circular Undermining No No -Exudate Amt Large Large -Exudate Type Serosanguineous Serosanguineous -Wound Margin Distinct, Distinct, Outline Outline Attached Attached -Granulation Amt Medium (34-66%) Medium (34-66%) -Granulation Quality [place] -Slough/Fibrin Yes Yes -Necrosis Amt Medium (34-66%) Medium (34-66%) -Necrotic Tissue Type Adherent Slough Adherent Slough -Structure Exposed N/A N/A -Texture (Earlene-wound Skin Appearance) Assessed Excoriation -Moisture (Earlene-wound Skin Appearance) Dry/Scaly Assessed -Color (Earlene-wound Skin Appearance) Assessed Erythema -Temperature (Earlene-wound Skin No Abnormality No Abnormality Appearance) (Pt Warm) (Pt Warm) -Tenderness on Palpation (Earlene-wound No No Skin Appearance) -Ulcer Cleansing Wound Cleanser Wound Cleanser -Foul Odor after Cleansing No Yes -Anesthetic Used 5% Lidocaine 5% Lidocaine Gel Gel Lower Limb Edema Present Yes Yes Right Calf (cm) 49.2 46 Right Ankle (cm) 28 28 Left Calf (cm) 49.5 46 Left Ankle (cm) 30.2 29 WC - Nurse 2 - General Ulcer CM Notes Start: 09/07/23 08:46 Freq: Status: Active Protocol: Activity Type Activity Date Activity User E-sign Co-sign Detail Recorded Client Recorded Date Recorded By Document 09/07/23 13:10 PL [id number] 09/07/23 13:14 PL 09/07/23 13:10 Wound Center Nurse 2 7. RLE anterior -Time 09:14 -Correct Patient Yes -Correct Side, Site, Position Yes -Correct Procedure Yes -Procedure Performed Yes -Type of Procedure Debridement -Clinical Debridement Subcutaneous -Tissue Removed Subcutaneous -Post Debridement (cm) - Length 14.0 -Post Debridement (cm) - Width 5.0 -Post Debridement (cm) - Depth 0.1 -Total Square (Post) (cm) 70.00 -Area of Debridement (cm) - Length 14.0 -Area of Debridement (cm) - Width 5.0 -Total Square (Area) (cm) 70.00 -Tunneling No -Undermining/Tunneling No -Circular Undermining No -Wound/Ulcer Outcome Not Healed -Ulcer Cleansing Rinsed/ Irrigated with Saline -Foul Odor after Cleansing No -Bioengineered Tissue No -Bleeding Controlled with Pressure -Treatment Response Procedure Tolerated Well -Debridement - Subq, 1st 20sq cm No 6. RLE lateral -Time 09:14 -Correct Patient Yes -Correct Side, Site, Position Yes -Correct Procedure Yes -Procedure Performed Yes -Type of Procedure Debridement -Clinical Debridement Subcutaneous -Tissue Removed Subcutaneous -Post Debridement (cm) - Length 13.0 -Post Debridement (cm) - Width 12.5 -Post Debridement (cm) - Depth 0.1 -Total Square (Post) (cm) 162.50 -Area of Debridement (cm) - Length 13.0 -Area of Debridement (cm) - Width 12.5 -Total Square (Area) (cm) 162.50 -Tunneling No -Undermining/Tunneling No -Circular Undermining No -Wound/Ulcer Outcome Not Healed -Ulcer Cleansing Rinsed/ Irrigated with Saline -Foul Odor after Cleansing No -Bioengineered Tissue No -Bleeding Controlled with Pressure -Treatment Response Procedure Tolerated Well -Debridement - Subq, 1st 20sq cm No 5. LLE anterior -Time 09:14 -Correct Patient Yes -Correct Side, Site, Position Yes -Correct Procedure Yes -Procedure Performed Yes -Type of Procedure Debridement -Clinical Debridement Subcutaneous -Tissue Removed Subcutaneous -Post Debridement (cm) - Length 15.0 -Post Debridement (cm) - Width 7.5 -Post Debridement (cm) - Depth 0.1 -Total Square (Post) (cm) 112.50 -Area of Debridement (cm) - Length 15.0 -Area of Debridement (cm) - Width 7.5 -Total Square (Area) (cm) 112.50 -Tunneling No -Undermining/Tunneling No -Circular Undermining No -Wound/Ulcer Outcome Not Healed -Ulcer Cleansing Rinsed/ Irrigated with Saline -Foul Odor after Cleansing No -Bioengineered Tissue No -Bleeding Controlled with Pressure -Treatment Response Procedure Tolerated Well -Debridement - Subq, 1st 20sq cm No 4. LLE post -Time 09:14 -Correct Patient Yes -Correct Side, Site, Position Yes -Correct Procedure Yes -Procedure Performed Yes -Type of Procedure Debridement -Clinical Debridement Subcutaneous -Tissue Removed Subcutaneous -Post Debridement (cm) - Length 9.0 -Post Debridement (cm) - Width 5.0 -Post Debridement (cm) - Depth 0.2 -Total Square (Post) (cm) 45.00 -Area of Debridement (cm) - Length 9.0 -Area of Debridement (cm) - Width 5.0 -Total Square (Area) (cm) 45.00 -Tunneling No -Undermining/Tunneling No -Circular Undermining No -Wound/Ulcer Outcome Not Healed -Ulcer Cleansing Rinsed/ Irrigated with Saline -Foul Odor after Cleansing No -Bioengineered Tissue No -Bleeding Controlled with Pressure -Treatment Response Procedure Tolerated Well -Debridement - Subq, 1st 20sq cm Yes -Debridement, SubQ, ea addt'l 20sq cm 19 or part thereof Pain Scale: 0-10 Numeric Is Patient Pain Free? Yes WC - Nurse 3 - General Ulcer D/C NN Start: 09/07/23 08:46 Freq: Status: Active Protocol: Activity Type Activity Date Activity User E-sign Co-sign Detail Recorded Client Recorded Date Recorded By Document 09/07/23 09:57 RB Desktop 09/07/23 09:59 RB Document 09/10/23 10:03 CA [id number] 09/10/23 10:07 CA 09/07/23 09/10/23 09:57 10:03 Wound Care Center Nurse 3 7. RLE anterior -Ulcer Cleansing Rinsed/ Irrigated with Saline -Primary Dressing Applied Optilok 8x12, Promogran -Optilok 8x12 2 -Promogran 5 6. RLE lateral -Primary Dressing Applied Optilok 8x12 -Other Dressing promogran/ superabsorber -Optilok 8x12 1 5. LLE anterior -Other Dressing promogran 4. LLE post -Primary Dressing Applied Optilok 8x12 -Other Dressing promogran / superabsorber -Optilok 8x12 1 bilat -Multi-Layered Wrap Application Unna Boot - Unna Boot - Bilateral ($) Bilateral ($) Treatment Response Procedure Tolerated Well Vital Signs Temperature (97.8 F-99.1 F) 98.0 F Temperature Source Temporal Pulse Rate (60-100) 69 Pulse Location Monitor Respiratory Rate (12-18) 18 Respiratory rate source Observation Oxygen Delivery Method Room Air Blood Pressure (90/60-120/80) 124/63 H Blood Pressure Mean 83 Source Monitor Position Sitting Blood Pressure Location Left Arm Pain Scale: 0-10 Numeric Is Patient Pain Free? Yes Yes Teaching: Wound Center Control Swelling with Leg Elevation -Person Taught Patient -Teaching Method Discussion -Response to teaching Verbalize understanding WC - Visit Discharge Discharge Condition Stable Stable Ambulatory Status Ambulatory Ambulatory Transportation Private Auto Private Auto Medication Reconcilliation completed & No No provided to patient/care provider Clinical Summary of Care Provided Yes Yes Notes: refer to nurses note. Lab / Micro Data Micro: Microbiology 09/07/23 09:20 Wound - Leg, Left Gram Stain - Final 09/07/23 09:20 Wound - Leg, Left Wound Culture - Final Staphylococcus aureus Morganella morganii sp morgani Streptococcus agalactiae (B) 09/07/23 09:20 Wound - Leg, Left Anaerobic Culture - Final Anaerobic cocci Clostridium group Assessment/Plan Assessment/Plan (1) Venous ulcer of left leg: CODE(S): I83.029 - Varicose veins of left lower extremity with ulcer of unspecified site; L97.929 - Non-pressure chronic ulcer of unspecified part of left lower leg with unspecified severity (2) Chronic venous hypertension w/ulcer and inflammation involv left side: CODE(S): I87.332 - Chronic venous hypertension (idiopathic) with ulcer and inflammation of left lower extremity (3) Chronic venous hypertension with inflammation involving left side: CODE(S): I87.322 - Chronic venous hypertension (idiopathic) with inflammation of left lower extremity (4) Venous stasis dermatitis of left lower extremity: CODE(S): I87.2 - Venous insufficiency (chronic) (peripheral) (5) Venous hypertension, chronic, with ulcer and inflammation: CODE(S): I87.339 - Chronic venous hypertension (idiopathic) with ulcer and inflammation of unspecified lower extremity; L97.909 - Non-pressure chronic ulcer of unspecified part of unspecified lower leg with unspecified severity QUALIFIERS: Laterality: right Qualified Code(s): I87.331 - Chronic venous hypertension (idiopathic) with ulcer and inflammation of right lower extremity; L97.919 - Non-pressure chronic ulcer of unspecified part of right lower leg with unspecified severity (6) Leg swelling: CODE(S): M79.89 - Other specified soft tissue disorders (7) Leg pain: CODE(S): M79.606 - Pain in leg, unspecified QUALIFIERS: Laterality: bilateral Qualified Code(s): M79.604 - Pain in right leg; M79.605 - Pain in left leg (8) Hyperlipidemia: CODE(S): E78.5 - Hyperlipidemia, unspecified (9) Hypertension: CODE(S): I10 - Essential (primary) hypertension (10) Lipodermatosclerosis: CODE(S): I83.10 - Varicose veins of unspecified lower extremity with inflammation QUALIFIERS: Laterality: bilateral Qualified Code(s): I83.11 - Varicose veins of right lower extremity with inflammation; I83.12 - Varicose veins of left lower extremity with inflammation (11) Hyperpigmentation: CODE(S): L81.9 - Disorder of pigmentation, unspecified (12) Morbid obesity: CODE(S): E66.01 - Morbid (severe) obesity due to excess calories (13) H/O umbilical hernia repair: CODE(S): Z98.890 - Other specified postprocedural states; Z87.19 - Personal history of other diseases of the digestive system (14) Chronic venous insufficiency: CODE(S): I87.2 - Venous insufficiency (chronic) (peripheral) PLAN: Plan This is a 53-year-old male with a longstanding history of chronic venous insufficiency, venous hypertension with inflammation and ulceration, and prior episodes of venous stasis ulcerations. He also experiences chronic swelling and edema in his lower extremities. 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 The patient's occupation prevents him from elevating his lower extremities as recommended. The nature of his occupation requires long periods of idle sitting. A lengthy discussion has been undertaken as to the appropriate conservative treatment measures relative to the patient's presenting symptoms and manifestations. It has been recommended that the patient take several days off from work, and remains at home with his legs elevated. Leg elevation is to occur as much as possible, during nighttime hours, and during daylight hours as well. The patient's legs are to be at heart level, or higher. Prolonged idle sitting is to be avoided. Activity has been encouraged. Weight loss has also been recommended. Swab cultures were obtained at the patient's prior visit on September 07, 2023, the results of which revealed the presence of Staph aureus, Morganella morganii, and Streptococcus agalactiae. Based upon the reported sensitivity results, the patient has been placed on Augmentin 875 mg p.o. twice daily for a total of 10 days, which is currently underway. We are to apply Fibricol topically to the ulcerations/excoriations, and wrap each lower extremity with an Unna boot, which will be changed twice weekly. 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 This is to allow him to be at home with his legs elevated for the preponderance of each day. The patient is return in 1 week for reevaluation. Total time: 26 minutes
[2023-09-17 08:59] VITALS: BP 154/91; PULSE 64; RESP 18; TEMP 36.3; BMI 51.7
[2023-09-21 08:14] VITALS: BP 131/79; PULSE 83; RESP 18; TEMP 36.1; BMI 51.7
--- NOTE | 2023-09-21 08:52 | PCM.WC.HP ---
History of Present Illness Date of Service: 09/21/23 Chief Complaint: Venous stasis dermatitis with swelling and edema bilaterally; venous stasis ulcerations of the lower extremities History of Wound: This is a 53-year-old male with a longstanding history of chronic venous disease. He has previously been treated at this facility for venous stasis ulcerations of both lower extremities. He was most recently treated only several months ago. He presented at this time with bilateral lower extremity swelling and edema, with venous ulcerations in the left lower extremity. Upon his prior discharge, the patient had been instructed in the use of his Velcro compression garments. He had been advised to elevate his lower extremities as much as possible, to heart level, or higher. Efforts have been made to obtain pneumatic mechanical compression pumps, but the patient's insurance did not allow for this benefit. The patient has had chronic venous stasis dermatitis in his lower extremities for several years. 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 His profession requires him to sit for prolonged periods. The patient is morbidly obese. He denies a history of deep vein thrombosis in the past. He claims to sleep on a flat mattress at night. [facility] Medical History (Updated 09/21/23 @ 09:[address] Rigo Harrington MD) Chronic venous hypertension w/ulcer and inflammation involv left side Chronic venous hypertension w/ulcer and inflammation involv right side Chronic venous hypertension with inflammation involving left side Chronic venous insufficiency Hyperlipidemia Hyperpigmentation Hypertension Leg pain Leg swelling Lipodermatosclerosis Morbid obesity Venous hypertension, chronic, with inflammation Venous hypertension, chronic, with ulcer and inflammation Venous stasis dermatitis of left lower extremity Venous stasis ulcer Venous ulcer of left leg Venous ulcer of right leg Home Medications furosemide 40 mg tablet 40 mg PO BID 06/24/21 [History Last Taken Unknown] lansoprazole 30 mg capsule,delayed release 30 mg PO DAILY 06/24/21 [History Last Taken Unknown] losartan 100 mg tablet 100 mg PO DAILY 06/24/21 [History Last Taken Unknown] pravastatin 10 mg tablet 10 mg PO DAILY 06/24/21 [History Last Taken Unknown] aspirin 81 mg tablet,delayed release mg 03/02/23 [History Last Taken Unknown] Allergy/AdvReac Type Severity Reaction Status Date / Time No Known Allergies Allergy Verified 03/02/23 08:30 Surgical History H/O umbilical hernia repair Social History 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 General Appearance: cooperative, comfortable, well kempt and well developed Orientation / Consciousness: awake, oriented to person, oriented to place and oriented to time HEENT normocephalic, head/scalp atraumatic and hearing grossly normal bilaterally Head and Scalp: normal to inspection, normocephalic and atraumatic External Ear: external ears normal Eyes PERRL and EOMs intact bilaterally General Eye: normal appearance of both eyes Resp normal respiratory effort, normal air movement, no retractions and no use of accessory muscles Effort and Inspection: able to speak in complete sentences Extremity no calf tenderness Extremity Narrative: Chronic venous changes are noted in the patient's right lower extremity. These include hyperpigmentation and lipodermatosclerosis. General Extremity: Negative for clubbing or cyanosis Skin Wound Narrative: Moderate swelling and edema are noted in the patient's lower extremities bilaterally. Hyperpigmentation and lipodermatosclerosis are noted in the gaiter areas bilaterally. Severe venous stasis dermatitis is noted in the gaiter areas of both lower extremities, associated with scattered superficial excoriations, some of which are large. A very large venous stasis ulceration has now developed on the patient's right lateral calf. It is associated with surrounding erythema. There is a large amount of necrotic and nonviable tissue present. Dimensions are documented elsewhere. Neuro oriented x3, CN's II-XII intact bilaterally, moves all extremities and no focal motor deficits Sensorium / Orientation: awake, alert, oriented to person, oriented to place and oriented to time Psych Appearance: grossly normal and appropriate Attitude: calm Activity / Motor Behavior: appropriate eye contact Speech: normal speech Mood & Affect: euthymic mood Thought Process: normal thought process Thought Content: normal thought content Attention / Concentration: attention grossly intact Debridement Note Debridement Note Wound debrided: Right lateral calf Laterality: Right Type of Debridement: Excisional debridement Anesthesia Used: 5% Lidocaine Gel and Cetacaine Depth: Down to and including healthy tissue and in the subcutaneous layer Percentage of wound debrided: 100 Instrument Used: 5mm curette Tissue Removed: Bioburden and nonviable, necrotic tissue Severity: Fat Layer Exposed Amount of bleeding with debridement: Mild Bleeding Controlled with: Compression and gauze Patient tolerated procedure: Patient did not tolerate procedure well Debridement Free Text: Because of the deterioration of the patient's right calf ulceration, with large amounts of necrotic and nonviable tissue, as well as associated cellulitic changes, swab cultures have been obtained for aerobic and anaerobic bacterial growth. Post-Debridement Measurements and Additional Note: Post-Debridement Measurements/Treatment - Nurse 1 - General Ulcer Assessment Start: 09/07/23 08:46 Freq: Status: Active Protocol: .CEM Activity Type Activity Date Activity User E-sign Co-sign Detail Recorded Client Recorded Date Recorded By Document 09/07/23 08:47 RB Desktop 09/07/23 09:06 RB Document 09/14/23 09:07 RB Desktop 09/14/23 09:18 RB Document 09/17/23 08:59 RB Desktop 09/17/23 09:06 RB Document 09/21/23 08:14 RB Desktop 09/21/23 08:36 RB 09/07/23 09/14/23 09/17/23 08:47 09:07 08:59 - Today's Visit Information Type of service Follow-up Visit Follow-up Visit Nurse-only (Physician/METER CALIBRATOR (Physician/METER CALIBRATOR Visit ) ) Arrival Mode Ambulatory Ambulatory Ambulatory Transfer Assistance None None None Patient Identification Verified (Name & Yes Yes Yes ) Patient Requires Transmission-Based No No No Precautions Height and Weight Height 5 ft 9 in Weight 350 lb Weight in Pounds 350.0 lbs Body Mass Index (BMI) 51.7 51.7 51.7 BMI Classification Obese Obese Obese BSA - Priscilla 2.62 Vital Signs Temperature (97.8 F-99.1 F) 97 F L 96.1 F L 97.4 F L Temperature Source Temporal Temporal Temporal Pulse Rate (60-100) 71 62 64 Pulse Location Monitor Monitor Monitor Respiratory Rate (12-18) 18 18 18 Respiratory rate source Observation Observation Observation Blood Pressure (90/60-120/80) 133/61 H 152/48 H 154/91 H Blood Pressure Mean 85 82 112 Source Monitor Monitor Monitor Position Semi-Fowlers Semi-Fowlers Semi-Fowlers Blood Pressure Location Left Arm Left Arm Left Arm History Since Last Visit- (Skip if this is Patient's initial visit) Have you changed medications since your No Yes No last visit? Any new allergies or adverse reactions No No No Had a fall/change in ADL's that may No No No increase risk of falls Signs or symptoms of abuse and/or No No No neglect since last visit Have you been in the hospital since your No No No last visit? Has dressing in place as prescribed Yes Yes Yes Has compression in place as prescribed Yes Yes Yes Has offloadiing in place as prescribed No No No Experienced any changes in pain level or No No No management Pain Scale: 0-10 Numeric Is Patient Pain Free? No Yes Yes bilat legs -Description Sharp,Burning Sharp,Aching -Intensity 8 7 -Duration (hours) Acute Acute -Pain Behavior Withdrawal from Withdrawal from Touch Touch -Pain Aggravating Factors ADL's,Standing Sitting, Debridement -Alleviating Factors/Interventions Medication Medication -Effectiveness of Alleviating Factor/ Minimally Moderately Intervention effective effective Culture/Restorationist/Lithographic Plate Maker Apprentice Cultural/Restorationist Needs that may affect No Treatment Plan Would you allow our hospital manager qa to No meet you for the purpose of spiritual/ emotional support? Lithographic Plate Maker Apprentice to contact place of jew No Teaching: Wound Center *Welcome to the Wound Center -Person Taught Patient -Teaching Method Discussion, Demonstration -Response to teaching Verbalize understanding 09/21/23 08:14 WC - Today's Visit Information Type of service Follow-up Visit (Physician/METER CALIBRATOR ) Arrival Mode Ambulatory Transfer Assistance None Patient Identification Verified (Name & Yes ) Patient Requires Transmission-Based No Precautions Height and Weight Height Weight Weight in Pounds Body Mass Index (BMI) 51.7 BMI Classification Obese BSA - Priscilla Vital Signs Temperature (97.8 F-99.1 F) 97 F L Temperature Source Temporal Pulse Rate (60-100) 83 Pulse Location Monitor Respiratory Rate (12-18) 18 Respiratory rate source Observation Blood Pressure (90/60-120/80) 131/79 H Blood Pressure Mean 96 Source Monitor Position Semi-Fowlers Blood Pressure Location Left Arm History Since Last Visit- (Skip if this is Patient's initial visit) Have you changed medications since your No last visit? Any new allergies or adverse reactions No Had a fall/change in ADL's that may No increase risk of falls Signs or symptoms of abuse and/or No neglect since last visit Have you been in the hospital since your No last visit? Has dressing in place as prescribed Yes Has compression in place as prescribed Yes Has offloadiing in place as prescribed No Experienced any changes in pain level or No management Pain Scale: 0-10 Numeric Is Patient Pain Free? Yes bilat legs -Description -Intensity -Duration (hours) -Pain Behavior -Pain Aggravating Factors -Alleviating Factors/Interventions -Effectiveness of Alleviating Factor/ Intervention Culture/Restorationist/Lithographic Plate Maker Apprentice Cultural/Restorationist Needs that may affect Treatment Plan Would you allow our hospital manager qa to meet you for the purpose of spiritual/ emotional support? Lithographic Plate Maker Apprentice to contact place of jew Teaching: Wound Center *Welcome to the Wound Center -Person Taught -Teaching Method -Response to teaching WC - Nurse 1 - General Ulcer Measurement Start: 09/07/23 08:46 Freq: Status: Active Protocol: Activity Type Activity Date Activity User E-sign Co-sign Detail Recorded Client Recorded Date Recorded By Document 09/07/23 08:47 RB Desktop 09/07/23 09:06 RB Document 09/14/23 09:07 RB Desktop 09/14/23 09:18 RB Document 09/17/23 08:59 RB Desktop 09/17/23 09:06 RB Document 09/21/23 08:14 RB Desktop 09/21/23 08:36 RB 09/07/23 09/14/23 09/17/23 08:47 09:07 08:59 Wound Center Nurse 1 7. RLE anterior -Combined with other wound No No -Current Size (cm) - Length 14 12 -Current Size (cm) - Width 5 5 -Current Size (cm) - Depth 0.1 0.1 -Total Square Cm 70 60 -Photo Taken Yes -Tunneling No No -Undermining/Tunneling No No -Circular Undermining No No -Exudate Amt Large Large Large -Exudate Type Sanguineous Serosanguineous Serosanguineous -Wound Margin Distinct, Distinct, Outline Outline Attached Attached -Granulation Amt Large (67-100%) Small (1-33%) -Granulation Quality [place] -Slough/Fibrin Yes Yes -Necrosis Amt None Present (0 Large (67-100%) %) -Necrotic Tissue Type Adherent Slough Adherent Slough -Structure Exposed N/A N/A -Texture (Earlene-wound Skin Appearance) Assessed, Assessed, Excoriation Excoriation -Moisture (Earlene-wound Skin Appearance) Assessed Assessed -Color (Earlene-wound Skin Appearance) Assessed Erythema -Temperature (Earlene-wound Skin No Abnormality No Abnormality Appearance) (Pt Warm) (Pt Warm) -Tenderness on Palpation (Earlene-wound No No Skin Appearance) -Ulcer Cleansing Wound Cleanser Wound Cleanser Wound Cleanser -Foul Odor after Cleansing Yes Yes -Anesthetic Used 5% Lidocaine 5% Lidocaine Gel Gel 6. RLE lateral -Combined with other wound No No -Current Size (cm) - Length 13 16.5 -Current Size (cm) - Width 12.5 12 -Current Size (cm) - Depth 0.1 0.2 -Total Square Cm 162.5 198.0 -Photo Taken Yes -Tunneling No No -Undermining/Tunneling No No -Circular Undermining No No -Exudate Amt Large Large Large -Exudate Type Serosanguineous Serosanguineous Yellow/Green -Wound Margin Distinct, Distinct, Outline Outline Attached Attached -Granulation Amt Medium (34-66%) Small (1-33%) Small (1-33%) -Granulation Quality [place] -Slough/Fibrin Yes Yes -Necrosis Amt Medium (34-66%) Large (67-100%) Large (67-100%) -Necrotic Tissue Type Adherent Slough Adherent Slough Adherent Slough -Structure Exposed N/A N/A -Texture (Earlene-wound Skin Appearance) Assessed, Excoriation Excoriation -Moisture (Earlene-wound Skin Appearance) Assessed Assessed -Color (Earlene-wound Skin Appearance) Assessed Assessed Erythema -Temperature (Earlene-wound Skin No Abnormality No Abnormality Appearance) (Pt Warm) (Pt Warm) -Tenderness on Palpation (Earlene-wound No No Skin Appearance) -Ulcer Cleansing Wound Cleanser Wound Cleanser Wound Cleanser -Foul Odor after Cleansing Yes, Due to Yes Yes Product Use -Anesthetic Used 5% Lidocaine 5% Lidocaine Gel Gel 5. LLE anterior -Combined with other wound No No -Current Size (cm) - Length 15 17 -Current Size (cm) - Width 7.5 18 -Current Size (cm) - Depth 0.1 0.1 -Total Square Cm 112.5 306 -Photo Taken Yes -Tunneling No No -Undermining/Tunneling No No -Circular Undermining No No -Exudate Amt Large Large Large -Exudate Type Serosanguineous Serosanguineous Serosanguineous -Wound Margin Distinct, Distinct, Outline Outline Attached Attached -Granulation Amt Medium (34-66%) Small (1-33%) -Granulation Quality [place] -Slough/Fibrin Yes Yes -Necrosis Amt Medium (34-66%) Large (67-100%) -Necrotic Tissue Type Adherent Slough Adherent Slough -Structure Exposed N/A N/A -Texture (Earlene-wound Skin Appearance) Assessed, Assessed, Excoriation Excoriation -Moisture (Earlene-wound Skin Appearance) Dry/Scaly Assessed -Color (Earlene-wound Skin Appearance) Assessed Assessed -Temperature (Earlene-wound Skin No Abnormality No Abnormality Appearance) (Pt Warm) (Pt Warm) -Tenderness on Palpation (Earlene-wound No No Skin Appearance) -Ulcer Cleansing Wound Cleanser Wound Cleanser Wound Cleanser -Foul Odor after Cleansing No Yes Yes -Anesthetic Used 5% Lidocaine 5% Lidocaine Gel Gel 4. LLE post -Combined with other wound No No -Current Size (cm) - Length 9 8 -Current Size (cm) - Width 5 5 -Current Size (cm) - Depth 0.2 0.2 -Total Square Cm 45 40 -Photo Taken Yes -Tunneling No No -Undermining/Tunneling No No -Circular Undermining No No -Exudate Amt Large Large Large -Exudate Type Serosanguineous Serosanguineous Serosanguineous -Wound Margin Distinct, Distinct, Outline Outline Attached Attached -Granulation Amt Medium (34-66%) Medium (34-66%) -Granulation Quality [place] -Slough/Fibrin Yes Yes -Necrosis Amt Medium (34-66%) Medium (34-66%) -Necrotic Tissue Type Adherent Slough Adherent Slough -Structure Exposed N/A N/A -Texture (Earlene-wound Skin Appearance) Assessed Excoriation -Moisture (Earlene-wound Skin Appearance) Dry/Scaly Assessed -Color (Earlene-wound Skin Appearance) Assessed Erythema -Temperature (Earlene-wound Skin No Abnormality No Abnormality Appearance) (Pt Warm) (Pt Warm) -Tenderness on Palpation (Earlene-wound No No Skin Appearance) -Ulcer Cleansing Wound Cleanser Wound Cleanser Wound Cleanser -Foul Odor after Cleansing No Yes Yes -Anesthetic Used 5% Lidocaine 5% Lidocaine Gel Gel Lower Limb Edema Present Yes Yes Yes Right Calf (cm) 49.2 46 46.5 Right Ankle (cm) 28 28 27.5 Left Calf (cm) 49.5 46 45 Left Ankle (cm) 30.2 29 29 09/21/23 08:14 Wound Center Nurse 1 7. RLE anterior -Combined with other wound No -Current Size (cm) - Length 9 -Current Size (cm) - Width 3.2 -Current Size (cm) - Depth 0.2 -Total Square Cm 28.8 -Photo Taken -Tunneling No -Undermining/Tunneling No -Circular Undermining No -Exudate Amt Large -Exudate Type Yellow/Green -Wound Margin Distinct, Outline Attached -Granulation Amt Medium (34-66%) -Granulation Quality [place] -Slough/Fibrin Yes -Necrosis Amt Medium (34-66%) -Necrotic Tissue Type Adherent Slough -Structure Exposed N/A -Texture (Earlene-wound Skin Appearance) Assessed, Excoriation -Moisture (Earlene-wound Skin Appearance) Assessed -Color (Earlene-wound Skin Appearance) Assessed -Temperature (Earlene-wound Skin No Abnormality Appearance) (Pt Warm) -Tenderness on Palpation (Earlene-wound No Skin Appearance) -Ulcer Cleansing Wound Cleanser -Foul Odor after Cleansing Yes -Anesthetic Used 5% Lidocaine Gel 6. RLE lateral -Combined with other wound No -Current Size (cm) - Length 16 -Current Size (cm) - Width 11.5 -Current Size (cm) - Depth 0.2 -Total Square Cm 184.0 -Photo Taken -Tunneling No -Undermining/Tunneling No -Circular Undermining No -Exudate Amt Large -Exudate Type Yellow/Green -Wound Margin Distinct, Outline Attached -Granulation Amt Medium (34-66%) -Granulation Quality [place] -Slough/Fibrin Yes -Necrosis Amt Medium (34-66%) -Necrotic Tissue Type Adherent Slough -Structure Exposed N/A -Texture (Earlene-wound Skin Appearance) Assessed, Excoriation -Moisture (Earlene-wound Skin Appearance) Assessed -Color (Earlene-wound Skin Appearance) Erythema -Temperature (Earlene-wound Skin No Abnormality Appearance) (Pt Warm) -Tenderness on Palpation (Earlene-wound No Skin Appearance) -Ulcer Cleansing Wound Cleanser -Foul Odor after Cleansing Yes -Anesthetic Used 5% Lidocaine Gel 5. LLE anterior -Combined with other wound No -Current Size (cm) - Length 10.5 -Current Size (cm) - Width 8 -Current Size (cm) - Depth 0.2 -Total Square Cm 84.0 -Photo Taken -Tunneling No -Undermining/Tunneling No -Circular Undermining No -Exudate Amt Large -Exudate Type Yellow/Green -Wound Margin Distinct, Outline Attached -Granulation Amt Medium (34-66%) -Granulation Quality [place] -Slough/Fibrin Yes -Necrosis Amt Medium (34-66%) -Necrotic Tissue Type Adherent Slough -Structure Exposed N/A -Texture (Earlene-wound Skin Appearance) Assessed, Excoriation -Moisture (Earlene-wound Skin Appearance) Assessed -Color (Earlene-wound Skin Appearance) Erythema -Temperature (Earlene-wound Skin No Abnormality Appearance) (Pt Warm) -Tenderness on Palpation (Earlene-wound No Skin Appearance) -Ulcer Cleansing Wound Cleanser -Foul Odor after Cleansing No -Anesthetic Used 5% Lidocaine Gel 4. LLE post -Combined with other wound No -Current Size (cm) - Length 9.3 -Current Size (cm) - Width 4 -Current Size (cm) - Depth 0.2 -Total Square Cm 37.2 -Photo Taken -Tunneling No -Undermining/Tunneling No -Circular Undermining No -Exudate Amt Large -Exudate Type Yellow/Green -Wound Margin Distinct, Outline Attached -Granulation Amt Medium (34-66%) -Granulation Quality [place] -Slough/Fibrin Yes -Necrosis Amt Large (67-100%) -Necrotic Tissue Type Adherent Slough -Structure Exposed N/A -Texture (Earlene-wound Skin Appearance) Assessed, Excoriation -Moisture (Earlene-wound Skin Appearance) -Color (Earlene-wound Skin Appearance) Assessed, Erythema -Temperature (Earlene-wound Skin No Abnormality Appearance) (Pt Warm) -Tenderness on Palpation (Earlene-wound No Skin Appearance) -Ulcer Cleansing Wound Cleanser -Foul Odor after Cleansing Yes -Anesthetic Used 5% Lidocaine Gel Lower Limb Edema Present Yes Right Calf (cm) 43.5 Right Ankle (cm) 27.5 Left Calf (cm) 44.8 Left Ankle (cm) 27.2 WC - Nurse 2 - General Ulcer CM Notes Start: 09/07/23 08:46 Freq: Status: Active Protocol: Activity Type Activity Date Activity User E-sign Co-sign Detail Recorded Client Recorded Date Recorded By Document 09/07/23 13:10 PL [id number] 09/07/23 13:14 PL Document 09/14/23 13:26 PL [id number] 09/14/23 13:34 PL 09/07/23 09/14/23 13:10 13:26 Wound Center Nurse 2 7. RLE anterior -Time 09:14 09:23 -Correct Patient Yes Yes -Correct Side, Site, Position Yes Yes -Correct Procedure Yes Yes -Procedure Performed Yes Yes -Type of Procedure Debridement Debridement -Clinical Debridement Subcutaneous Subcutaneous -Tissue Removed Subcutaneous Subcutaneous -Post Debridement (cm) - Length 14.0 12.0 -Post Debridement (cm) - Width 5.0 5.0 -Post Debridement (cm) - Depth 0.1 0.2 -Total Square (Post) (cm) 70.00 60.00 -Area of Debridement (cm) - Length 14.0 12.1 -Area of Debridement (cm) - Width 5.0 5.1 -Total Square (Area) (cm) 70.00 61.71 -Tunneling No No -Undermining/Tunneling No No -Circular Undermining No No -Wound/Ulcer Outcome Not Healed Not Healed -Ulcer Cleansing Rinsed/ Rinsed/ Irrigated with Irrigated with Saline Saline -Foul Odor after Cleansing No No -Bioengineered Tissue No No -Bleeding Controlled with Pressure Pressure -Treatment Response Procedure Procedure Tolerated Well Tolerated Well -Debridement - Subq, 1st 20sq cm No No 6. RLE lateral -Time 09:14 09:23 -Correct Patient Yes Yes -Correct Side, Site, Position Yes Yes -Correct Procedure Yes Yes -Procedure Performed Yes Yes -Type of Procedure Debridement Debridement -Clinical Debridement Subcutaneous Subcutaneous -Tissue Removed Subcutaneous Subcutaneous -Post Debridement (cm) - Length 13.0 16.5 -Post Debridement (cm) - Width 12.5 12.0 -Post Debridement (cm) - Depth 0.1 0.2 -Total Square (Post) (cm) 162.50 198.00 -Area of Debridement (cm) - Length 13.0 16.6 -Area of Debridement (cm) - Width 12.5 12.1 -Total Square (Area) (cm) 162.50 200.86 -Tunneling No No -Undermining/Tunneling No No -Circular Undermining No No -Wound/Ulcer Outcome Not Healed Not Healed -Ulcer Cleansing Rinsed/ Rinsed/ Irrigated with Irrigated with Saline Saline -Foul Odor after Cleansing No No -Bioengineered Tissue No No -Bleeding Controlled with Pressure Pressure -Treatment Response Procedure Procedure Tolerated Well Tolerated Well -Debridement - Subq, 1st 20sq cm No No 5. LLE anterior -Time 09: 09:23 -Correct Patient Yes Yes -Correct Side, Site, Position Yes Yes -Correct Procedure Yes Yes -Procedure Performed Yes Yes -Type of Procedure Debridement Debridement -Clinical Debridement Subcutaneous Subcutaneous -Tissue Removed Subcutaneous Subcutaneous -Post Debridement (cm) - Length 15.0 17.0 -Post Debridement (cm) - Width 7.5 18.0 -Post Debridement (cm) - Depth 0.1 0.1 -Total Square (Post) (cm) 112.50 306.00 -Area of Debridement (cm) - Length 15.0 17.0 -Area of Debridement (cm) - Width 7.5 18.0 -Total Square (Area) (cm) 112.50 306.00 -Tunneling No No -Undermining/Tunneling No No -Circular Undermining No No -Wound/Ulcer Outcome Not Healed Not Healed -Ulcer Cleansing Rinsed/ Rinsed/ Irrigated with Irrigated with Saline Saline -Foul Odor after Cleansing No No -Bioengineered Tissue No No -Bleeding Controlled with Pressure Pressure -Treatment Response Procedure Procedure Tolerated Well Tolerated Well -Debridement - Subq, 1st 20sq cm No No 4. LLE post -Time 09:14 09:23 -Correct Patient Yes Yes -Correct Side, Site, Position Yes Yes -Correct Procedure Yes Yes -Procedure Performed Yes Yes -Type of Procedure Debridement Debridement -Clinical Debridement Subcutaneous Subcutaneous -Tissue Removed Subcutaneous Subcutaneous -Post Debridement (cm) - Length 9.0 8.0 -Post Debridement (cm) - Width 5.0 5.0 -Post Debridement (cm) - Depth 0.2 0.2 -Total Square (Post) (cm) 45.00 40.00 -Area of Debridement (cm) - Length 9.0 8.1 -Area of Debridement (cm) - Width 5.0 5.1 -Total Square (Area) (cm) 45.00 41.31 -Tunneling No No -Undermining/Tunneling No No -Circular Undermining No No -Wound/Ulcer Outcome Not Healed -Ulcer Cleansing Rinsed/ Rinsed/ Irrigated with Irrigated with Saline Saline -Foul Odor after Cleansing No No -Bioengineered Tissue No No -Bleeding Controlled with Pressure Pressure -Treatment Response Procedure Procedure Tolerated Well Tolerated Well -Debridement - Subq, 1st 20sq cm Yes Yes -Debridement, SubQ, ea addt'l 20sq cm 19 30 or part thereof Pain Scale: 0-10 Numeric Is Patient Pain Free? Yes Yes WC - Nurse 3 - General Ulcer D/C NN Start: 09/07/23 08:46 Freq: Status: Active Protocol: Activity Type Activity Date Activity User E-sign Co-sign Detail Recorded Client Recorded Date Recorded By Document 09/07/23 09:57 RB Desktop 09/07/23 09:59 RB Document 09/10/23 10:03 NE [id number] 09/10/23 10:07 NE Document 09/14/23 12:23 RB [id number] 09/14/23 12:25 RB Document 09/17/23 08:59 RB Desktop 09/17/23 09:06 RB 09/07/23 09/10/23 09/14/23 09:57 10:03 12:23 Wound Care Center Nurse 3 7. RLE anterior -Ulcer Cleansing Rinsed/ Rinsed/ Irrigated with Irrigated with Saline Saline -Primary Dressing Applied Optilok 8x12, Fibracol Plus Promogran 4x4,Optilok 8x12 -Fibracol Plus 4x4 1 -Optilok 8x12 2 1 -Promogran 5 6. RLE lateral -Ulcer Cleansing -Primary Dressing Applied Optilok 8x12 Fibracol Plus 4x4 -Other Dressing promogran/ superabsorber -Fibracol Plus 4x4 1 -Optilok 8x12 1 5. LLE anterior -Ulcer Cleansing -Primary Dressing Applied Fibracol Plus 4x4,Optilok 8x12 -Other Dressing promogran -Fibracol Plus 4x4 1 -Optilok 8x12 1 4. LLE post -Ulcer Cleansing -Primary Dressing Applied Optilok 8x12 -Other Dressing promogran / fibracol superabsorber -Optilok 8x12 1 bilat -Multi-Layered Wrap Application Unna Boot - Unna Boot - Unna Boot - Bilateral ($) Bilateral ($) Bilateral ($) Treatment Response Procedure Procedure Tolerated Well Tolerated Well Vital Signs Temperature (97.8 F-99.1 F) 98.0 F Temperature Source Temporal Pulse Rate (60-100) 69 Pulse Location Monitor Respiratory Rate (12-18) 18 Respiratory rate source Observation Oxygen Delivery Method Room Air Blood Pressure (90/60-120/80) 124/63 H Blood Pressure Mean 83 Source Monitor Position Sitting Blood Pressure Location Left Arm Pain Scale: 0-10 Numeric Is Patient Pain Free? Yes Yes Yes Teaching: Wound Center Control Swelling with Leg Elevation -Person Taught Patient -Teaching Method Discussion -Response to teaching Verbalize understanding WC - Visit Discharge Discharge Condition Stable Stable Stable Ambulatory Status Ambulatory Ambulatory Ambulatory Transportation Private Auto Private Auto Private Auto Medication Reconcilliation completed & No No No provided to patient/care provider Clinical Summary of Care Provided Yes Yes Yes Notes: refer to nurses note. 09/17/23 08:59 Wound Care Center Nurse 3 7. RLE anterior -Ulcer Cleansing Wound Cleanser -Primary Dressing Applied Fibracol Plus 4x4,Optilok 8x12 -Fibracol Plus 4x4 1 -Optilok 8x12 1 -Promogran 6. RLE lateral -Ulcer Cleansing Wound Cleanser -Primary Dressing Applied Fibracol Plus 4x4 -Other Dressing -Fibracol Plus 4x4 1 -Optilok 8x12 5. LLE anterior -Ulcer Cleansing Wound Cleanser -Primary Dressing Applied Fibracol Plus 4x4 -Other Dressing -Fibracol Plus 4x4 1 -Optilok 8x12 4. LLE post -Ulcer Cleansing Wound Cleanser -Primary Dressing Applied Optilok 8x12 -Other Dressing fibracol -Optilok 8x12 1 bilat -Multi-Layered Wrap Application Unna Boot - Bilateral ($) Treatment Response Procedure Tolerated Well Vital Signs Temperature (97.8 F-99.1 F) 97.4 F L Temperature Source Temporal Pulse Rate (60-100) 64 Pulse Location Monitor Respiratory Rate (12-18) 18 Respiratory rate source Observation Oxygen Delivery Method Blood Pressure (90/60-120/80) 154/91 H Blood Pressure Mean 112 Source Monitor Position Semi-Fowlers Blood Pressure Location Left Arm Pain Scale: 0-10 Numeric Is Patient Pain Free? Yes Teaching: Wound Center Control Swelling with Leg Elevation -Person Taught -Teaching Method -Response to teaching WC - Visit Discharge Discharge Condition Stable Ambulatory Status Ambulatory Transportation Private Auto Medication Reconcilliation completed & No provided to patient/care provider Clinical Summary of Care Provided Yes Notes: L lateral wound bed slough noted with green drainage noted . pt states that wound is most painful Assessment/Plan Assessment/Plan (1) Venous ulcer of right leg: CODE(S): I83.019 - Varicose veins of right lower extremity with ulcer of unspecified site; L97.919 - Non-pressure chronic ulcer of unspecified part of right lower leg with unspecified severity (2) Chronic venous hypertension w/ulcer and inflammation involv right side: CODE(S): I87.331 - Chronic venous hypertension (idiopathic) with ulcer and inflammation of right lower extremity (3) Venous ulcer of left leg: CODE(S): I83.029 - Varicose veins of left lower extremity with ulcer of unspecified site; L97.929 - Non-pressure chronic ulcer of unspecified part of left lower leg with unspecified severity (4) Chronic venous hypertension w/ulcer and inflammation involv left side: CODE(S): I87.332 - Chronic venous hypertension (idiopathic) with ulcer and inflammation of left lower extremity (5) Chronic venous hypertension with inflammation involving left side: CODE(S): I87.322 - Chronic venous hypertension (idiopathic) with inflammation of left lower extremity (6) Venous stasis dermatitis of left lower extremity: CODE(S): I87.2 - Venous insufficiency (chronic) (peripheral) (7) Venous hypertension, chronic, with ulcer and inflammation: CODE(S): I87.339 - Chronic venous hypertension (idiopathic) with ulcer and inflammation of unspecified lower extremity; L97.909 - Non-pressure chronic ulcer of unspecified part of unspecified lower leg with unspecified severity QUALIFIERS: Laterality: right Qualified Code(s): I87.331 - Chronic venous hypertension (idiopathic) with ulcer and inflammation of right lower extremity; L97.919 - Non-pressure chronic ulcer of unspecified part of right lower leg with unspecified severity (8) Leg swelling: CODE(S): M79.89 - Other specified soft tissue disorders (9) Leg pain: CODE(S): M79.606 - Pain in leg, unspecified QUALIFIERS: Laterality: bilateral Qualified Code(s): M79.604 - Pain in right leg; M79.605 - Pain in left leg (10) Hyperlipidemia: CODE(S): E78.5 - Hyperlipidemia, unspecified (11) Hypertension: CODE(S): I10 - Essential (primary) hypertension (12) Lipodermatosclerosis: CODE(S): I83.10 - Varicose veins of unspecified lower extremity with inflammation QUALIFIERS: Laterality: bilateral Qualified Code(s): I83.11 - Varicose veins of right lower extremity with inflammation; I83.12 - Varicose veins of left lower extremity with inflammation (13) Hyperpigmentation: CODE(S): L81.9 - Disorder of pigmentation, unspecified (14) Morbid obesity: CODE(S): E66.01 - Morbid (severe) obesity due to excess calories (15) H/O umbilical hernia repair: CODE(S): Z98.890 - Other specified postprocedural states; Z87.19 - Personal history of other diseases of the digestive system (16) Chronic venous insufficiency: CODE(S): I87.2 - Venous insufficiency (chronic) (peripheral) PLAN: Plan This is a 53-year-old male with a longstanding history of chronic venous insufficiency, venous hypertension with inflammation and ulceration, and prior episodes of venous stasis ulcerations. He also experiences chronic swelling and edema in his lower extremities. 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 The patient's occupation prevents him from elevating his lower extremities as recommended. The nature of his occupation requires long periods of idle sitting. A lengthy discussion has been undertaken as to the appropriate conservative treatment measures relative to the patient's presenting symptoms and manifestations. It has been recommended that the patient take several days or weeks off from work, and remain at home with his legs elevated. Leg elevation is to occur as much as possible, during nighttime hours, and during daylight hours as well. The patient's legs are to be at heart level, or higher. Prolonged idle sitting is to be avoided. Activity has been encouraged. Weight loss has also been recommended. The patient has abstained from work over the last week, but presented today with a severe progression of his venous ulcerations, particularly in the right leg. He now has a very large ulceration on the right lateral calf, with a large amount of necrotic and nonviable tissue. The ulceration is associated with surrounding cellulitis. Swab cultures have been obtained at the patient's prior visit on September 07, 2023, the results of which revealed the presence of Staph aureus, Morganella morganii, and Streptococcus agalactiae. Based upon the reported sensitivity results, the patient was placed on Augmentin 875 mg p.o. twice daily for a total of 10 days, which was taken to completion. As of today, however, there has been significant deterioration, and swab cultures have again been obtained for both aerobic and anaerobic bacterial growth. Furthermore, because of the patient's deterioration, and concerns with regard to increasing cellulitis despite all recent measures, there is concerned about the risk of sepsis. Therefore, a discussion has been undertaken with the patient as to the potential benefits of inpatient management, for at least several days, whereby the patient can elevate his lower extremities without interruption, received inpatient wound care, and intravenous antibiotics as appropriate. I have contacted the emergency room physician to inform of impending patient transfer to the emergency department, anticipating that the patient will be admitted by the Hospitalist service for inpatient management. In addition to antibiotic management, it is advised that the patient's management include leg elevation, compression, and local wound care measures. On a more long-term basis, weight loss has been recommended as well. Total time: 26 minutes
== END 2023-09-28 23:59 | disposition home or self-care (01) ==
LOC: WC 08:30
PROVIDERS: PCP Nurse Practitioner Family; Referring Provider Surgery; Visit Provider Surgery
DX: I83.018 Varicose veins of right lower extremity with ulcer other part of lower leg (principal); L97.812 Non-pressure chronic ulcer of other part of right lower leg with fat layer exposed; L97.922 Non-pressure chronic ulcer of unspecified part of left lower leg with fat layer exposed; I83.029 Varicose veins of left lower extremity with ulcer of unspecified site; E66.01 Morbid (severe) obesity due to excess calories; Z68.43 Body mass index [BMI] 50.0-59.9, adult; M79.604 Pain in right leg; M79.605 Pain in left leg; E78.5 Hyperlipidemia, unspecified; I10 Essential (primary) hypertension; I83.11 Varicose veins of right lower extremity with inflammation; I83.12 Varicose veins of left lower extremity with inflammation
CPT/HCPCS: 11042; 11045; 29580; 87070; 87075; 87077; 87186; 87205; 96361; 96374; 96375; 99211; 99213; 99221; G0378; G0463

== ENCOUNTER 2023-09-21 09:21 | Observation (INO) | payer BC, SELFPAY ==
[2023-09-21 09:23] VITALS: BP 130/70; PULSE 78; RESP 18; TEMP 36.6; O2SAT 99
--- NOTE | 2023-09-21 09:56 | ED.VIS.LOWEX ---
HPI History of Present Illness Chief Complaint: Wound Narrative Narrative: 53-year-old male past medical history of lymphedema, venous stasis ulcers of bilateral lower extremities, presents from the wound center with increasing pain and drainage from his bilateral lower extremities, right greater than left. He was seen by Dr. Rigo Harrington, and has been treated in the wound care center for the last few weeks. Yesterday, he finished a 10-day course of Augmentin, and was seen and evaluated at the wound care center and sent to the emergency department for admission for IV antibiotics. He denies any fevers or chills, no nausea or vomiting, but states that he has had problems with ulcerations of his bilateral lower extremities, right greater than left. He did notes yellow drainage from the areas. He was admitted a few years ago at an outside facility for his venous ulcers. Additionally, today he states wound cultures were taken at the wound center today. [facility] Medical History Chronic venous hypertension w/ulcer and inflammation involv left side Chronic venous hypertension w/ulcer and inflammation involv right side Chronic venous hypertension with inflammation involving left side Chronic venous insufficiency Hyperlipidemia Hyperpigmentation Hypertension Leg pain Leg swelling Lipodermatosclerosis Morbid obesity Venous hypertension, chronic, with inflammation Venous hypertension, chronic, with ulcer and inflammation Venous stasis dermatitis of left lower extremity Venous stasis ulcer Venous ulcer of left leg Venous ulcer of right leg Home Medications furosemide 40 mg tablet 40 mg PO BID 06/24/21 [History Last Taken 09/20/23] lansoprazole 30 mg capsule,delayed release 30 mg PO DAILY 06/24/21 [History Last Taken 09/20/23] losartan 100 mg tablet 100 mg PO DAILY 06/24/21 [History Last Taken 09/20/23] pravastatin 10 mg tablet 10 mg PO DAILY 06/24/21 [History Last Taken 09/20/23] Allergy/AdvReac Type Severity Reaction Status Date / Time No Known Allergies Allergy Verified 09/21/23 09:25 Surgical History H/O umbilical hernia repair Social History 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 HEENT: No sore throat. No neck pain. No loss of vision. No rhinorrhea. Cardiovascular: No chest pain. No palpitations. No pedal edema. Respiratory: No cough, no shortness of breath. Abdominal: No abdominal pain. No nausea. No vomiting. Genitourinary: No dysuria. No hematuria. Musculoskeletal: No myalgias. No arthralgias. Pain over ulcer sites of bilateral lower extremities. Neurologic: No headaches. No dizziness. No lightheadedness. Skin: No rash. No change in color. No venous stasis ulcers bilateral lower extremities, right greater than left with purulent drainage. Psychiatric: No depression. No anxiety. EXAM Physical Exam Narrative Exam Narrative: Afebrile. Vital signs noted. HEENT: Normocephalic. Atraumatic. PERRL, EOMI. Neck soft and supple. No point tenderness or step off. Cardiovascular: Regular rate and rhythm. No murmurs, rubs, or gallops appreciated. Respiratory: No tachypnea. Lungs clear to auscultation bilaterally. Gastrointestinal: Abdomen soft, nontender, with normoactive bowel sounds. No rebound or guarding. Neurological: Awake. Alert. Nonfocal, nonlateralizing. Skin: No rash. Normal color. No pallor. Positive large venous stasis ulcer radiation right lateral leg with mild purulent drainage. Left lower extremity bandaged. Underneath left lower extremity is a smaller ulceration more on the anterior tibial portion of his left lower extremity. Musculoskeletal: No pedal edema. Full range of motion extremities. Const Vital Signs: 09/21/23 09:23 09/21/23 11:43 Temperature 97.8 F 97.6 F L Temperature Source Temporal Pulse Rate 78 81 Respiratory Rate 18 18 Blood Pressure 130/70 H 112/60 Blood Pressure Mean 90 77 Pulse Ox 99 98 Oxygen Delivery Method Room Air MDM MDM MDM Narrative Medical decision making narrative: Reviewed the patient's prior records. For he will be started on Zosyn initially, and once weight is entered he will be started on 15 mg/kg of vancomycin. Concern is for cellulitis and ulcerations requiring antibiotics, I have low suspicion for sepsis at this time as he is not febrile or tachycardic. Additionally, wound cultures were already taken at the wound care center. I will not obtain blood cultures prior to antibiotics as he just finished a course of antibiotics yesterday. I reviewed his laboratory work from today and he has normal white count of 7.6, hemoglobin stable at 12.6, platelet count normal at 293. BUN is normal at 18 with creatinine normal at 0.95. LFTs are grossly unremarkable. Lactic acid normal at 1.0. He was started on Zosyn, now that weight has been entered, I will also administer vancomycin. I discussed patient with Dr. Mathis for admission to the general medical floor. Patient is in stable condition. History & Record Review Discussion w/independent historian: Patient Additional record(s) reviewed:: Prior outpatient record and Prior ED visit Lab Data Attestation: I reviewed the patient's lab results. Labs: Laboratory Results - last 24 hr 09/21/23 10:20 WBC 7.6 RBC 4.66 Hgb 12.6 L Hct 40.3 MCV 86.5 MCH 27.0 MCHC 31.3 L RDW Std Deviation 45.5 H RDW Coeff of Kelly 14.5 Plt Count 293 MPV 8.7 Immature Gran % (Auto) 0.400 Neut % (Auto) 59.8 Lymph % (Auto) 21.0 [place] % (Auto) 10.3 H Eos % (Auto) 8.2 H Baso % (Auto) 0.3 Absolute Neuts (auto) 4.5 Absolute Lymphs (auto) 1.59 Nucleated RBC % 0 Sodium 137 Potassium 3.8 Chloride 106 Carbon Dioxide 29.0 Anion Gap 2 L BUN 18 Creatinine 0.95 Est GFR (MDRD) Af Amer 107 Est GFR (MDRD) Non-Af 89 BUN/Creatinine Ratio 19.0 Glucose 99 Lactic Acid 1.0 Calcium 8.6 Total Bilirubin 0.60 AST 18 ALT 22 Alkaline Phosphatase 61 Total Protein 8.1 Albumin 3.0 L Globulin 5.1 H Albumin/Globulin Ratio 0.6 L Discharge Plan Triage Chief Complaint: Wound ED Provider: Nikhil Pate Dx/Rx/DC Orders Prescriptions: No Action furosemide 40 mg Tablet 40 mg PO BID losartan 100 mg Tablet 100 mg PO DAILY pravastatin 10 mg Tablet 10 mg PO DAILY lansoprazole 30 mg Capsule,Delayed Release(Dr/Ec) 30 mg PO DAILY Primary Care Provider: Roger Geller NP Referrals: Roger Geller [employer]ING [employer]SEMBLER, ELECT[employer]IC BLASTING CAP ASSEMBLER-C [Primary Care Provider] -
[2023-09-21] MEDS: Piperacil/Tazobactam 3.375 GM in 0.9% Normal Saline (50mL MB+) 50 ML IV (10:26)
[2023-09-21 10:39] LABS: Absolute Lymphocyte Count 1.59 X10^3/uL (0.83-4.51); Absolute Neutrophil Count 4.5 X10^3/uL (2.0-7.7); Basophil# 0.02 X10^3/uL; Basophil% 0.3 % (0-1); Eosinophil# 0.62 X10^3/uL; Eosinophils% 8.2 % (0-5); Hematocrit 40.3 % (40-54); Hemoglobin 12.6 g/dL (13.0-16.5); Lymphocyte # 1.59 X10^3/ul (0.83-4.51); Mean Corp Hgb Conc 31.3 g/dL (32-36); Mean Corpuscular Volume 86.5 fL (80-94); Mean Platelet Vol. 8.7 fl (6.2-12.0); Monocyte# 0.78 X10^3/uL; Monocyte% 10.3 % (0-10); NRBC Flagged by Analyzer 0 % (0-5); Neutrophil # 4.54 X10^3/uL (2.7-7.7); Neutrophil % 59.8 % (47-70); Platelet Count 293 K/mm3 (150-450); RBC Distribution Width CV 14.5 % (11.6-14.6); RBC Distribution Width SD 45.5 fl (35.1-43.9); Red Blood Count 4.66 M/mm3 (4.6-6.2); White Blood Count 7.6 K/mm3 (4.4-11.0)
[2023-09-21 10:54] LABS: ALB/GLOB Ratio 0.6 RATIO (0.9-2.4); AST(SGOT) 18 U/L (15-37); Alanine Aminotransfer ALT/SGPT 22 U/L (16-61); Alkaline Phosphatase 61 U/L (45-117); Anion Gap 2 (5-15); BUN 18 mg/dL (7-18); Calcium,Total 8.6 mg/dL (8.5-10.1); Chloride 106 mmol/L (98-107); Creatinine, Serum 0.95 mg/dL (0.70-1.30); EST Glomerular Filtration Rate 89 mL/min (>60); Est Glom Filt Rate - Afr Amer 107 mL/min (>60); Globulin 5.1 g/dL (2.2-4.2); Glucose 99 mg/dL (74-106); Potassium 3.8 mmol/L (3.5-5.1); Protein, Total 8.1 g/dL (6.4-8.2); Sodium Level 137 mmol/L (136-145)
[2023-09-21 11:43] VITALS: BP 112/60; PULSE 81; RESP 18; TEMP 36.4; O2SAT 98; BMI 48.9
--- NOTE | 2023-09-21 11:43 | NURSING ---
MED SURG JOPPERI CELLULITIS, VENOUS STATIS ULCERS OF BILATERAL LOWER EXTREMITIES
--- NOTE | 2023-09-21 11:52 | HP.PCM.HOS_ITS ---
HPI - General General Date of Service: 09/21/23 Chief Complaint: Right leg wound HPI Narrative HILLARY ROSAS, is a 53 M who presents chronic right leg wound. Had been treated with amox/CA, but continued to worsen despite. He saw Dr. Harrington at the Wound Center and advised to come to the ED. In ED, pt received pip/tazo. [facility] Medical History Chronic venous hypertension w/ulcer and inflammation involv left side Chronic venous hypertension w/ulcer and inflammation involv right side Chronic venous hypertension with inflammation involving left side Chronic venous insufficiency Hyperlipidemia Hyperpigmentation Hypertension Leg pain Leg swelling Lipodermatosclerosis Morbid obesity Venous hypertension, chronic, with inflammation Venous hypertension, chronic, with ulcer and inflammation Venous stasis dermatitis of left lower extremity Venous stasis ulcer Venous ulcer of left leg Venous ulcer of right leg Home Medications furosemide 40 mg tablet 40 mg PO BID 06/24/21 [History Last Taken 09/20/23] lansoprazole 30 mg capsule,delayed release 30 mg PO DAILY 06/24/21 [History Last Taken 09/20/23] losartan 100 mg tablet 100 mg PO DAILY 06/24/21 [History Last Taken 09/20/23] pravastatin 10 mg tablet 10 mg PO DAILY 06/24/21 [History Last Taken 09/20/23] Allergy/AdvReac Type Severity Reaction Status Date / Time No Known Allergies Allergy Verified 09/21/23 09:25 Surgical History H/O umbilical hernia repair Social History 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 Vital Signs Vital Signs Vital Signs: 09/21/23 09:23 09/21/23 11:43 Temperature 36.6 C 36.4 C L Temperature Source Temporal Pulse Rate 78 81 Respiratory Rate 18 18 Blood Pressure 130/70 H 112/60 Blood Pressure Mean 90 77 Pulse Ox 99 98 Oxygen Delivery Method Room Air Weight Weight: 150.2 kg Body Mass Index (BMI) 48.9 Physical Exam Const alert and no apparent distress HEENT normocephalic, head/scalp atraumatic, hearing grossly normal bilaterally and moist oral mucous membranes Resp normal respiratory effort, no retractions, no use of accessory muscles and clear to auscultation bilaterally Cardio regular rate, regular rhythm, S1 normal heart sound and S2 normal heart sound GI normal to inspection, nondistended, normoactive bowel sounds, soft to palpation, non-tender and non-distended Extremity Extremity Narrative: lymphedematous changes. large superficial ulceration over right lateral leg w/o purulence Neuro oriented x3 and moves all extremities Sensorium / Orientation: awake and alert Psych affect normal Results Lab / Micro Data 09/21/23 10:20 09/21/23 10:20 Labs: Laboratory Results - last 24 hr 09/21/23 10:20: WBC 7.6, RBC 4.66, Hgb 12.6 L, Hct 40.3, MCV 86.5, MCH 27.0, MCHC 31.3 L, RDW Std Deviation 45.5 H, RDW Coeff of Kelly 14.5, Plt Count 293, MPV 8.7, Immature Gran % (Auto) 0.400, Neut % (Auto) 59.8, Lymph % (Auto) 21.0, [place] % (Auto) 10.3 H, Eos % (Auto) 8.2 H, Baso % (Auto) 0.3, Absolute Neuts (auto) 4.5, Absolute Lymphs (auto) 1.59, Nucleated RBC % 0, Sodium 137, Potassium 3.8, Chloride 106, Carbon Dioxide 29.0, Anion Gap 2 L, BUN 18, Creatinine 0.95, Est GFR (MDRD) Af Amer 107, Est GFR (MDRD) Non-Af 89, BUN/Creatinine Ratio 19.0, Glucose 99, Lactic Acid 1.0, Calcium 8.6, Total Bilirubin 0.60, AST 18, ALT 22, Alkaline Phosphatase 61, Total Protein 8.1, Albumin 3.0 L, Globulin 5.1 H, Albumin/Globulin Ratio 0.6 L Assessment & Plan Assessment/Plan (1) Chronic venous hypertension w/ulcer and inflammation involv right side: PLAN: polymicrobial on wound culture on 09/07 w MSSA, Moranella morganii, GB strep Was on amox/CA as outpt Will continue with IV abx with ampicillin/SB and levofloxacin Keep leg elevated. Check culture. Consult wound care. Non-smoker, doubt Moe's disease May need biopsy to eval for pyoderma gangrenosum. PLAN: Plan Chronic conditions: * HTN: continue losartan * HLP: statin * GERD: continue PPI VTE prophylaxis: SQ LMWH.
[2023-09-21] MEDS: Vancomycin HCl 2,000 MG in 0.9% Normal Saline (500mL Bag) 500 ML 250 MG IV (12:38)
[2023-09-21 14:28] VITALS: RESP 16
[2023-09-21 15:18] VITALS: BMI 48.2
[2023-09-21 16:00] VITALS: BP 109/61; PULSE 60; RESP 18; TEMP 36.2; O2SAT 99
--- NOTE | 2023-09-21 16:04 | WOUNDNOTE ---
wound photo: right lower leg - lateral #1
--- NOTE | 2023-09-21 16:05 | WOUNDNOTE ---
wound photo: right lower leg- anterior view cont.
--- NOTE | 2023-09-21 16:06 | WOUNDNOTE ---
wound photo: left lower leg -posterior
--- NOTE | 2023-09-21 16:09 | WOUNDNOTE ---
wound photo: left lower leg- anterior
[2023-09-21] MEDS: 0.9% Normal Saline (250mL Bag) 250 ML 15 ML IV (16:15)
[2023-09-21] MEDS: Ampicillin/Sulbactam 3 GM in 0.9% Normal Saline (100mL MB+) 100 ML IV ×2 (16:16→23:33)
[2023-09-21] MEDS: Juven (unflavored) Packet 1 PACKET PO (18:33)
[2023-09-21 20:54] VITALS: BP 118/66; PULSE 71; RESP 16; TEMP 37.1; O2SAT 96
[2023-09-22 02:09] VITALS: BP 128/76; PULSE 68; RESP 16; TEMP 36.6; O2SAT 96
[2023-09-22] MEDS: Ampicillin/Sulbactam 3 GM in 0.9% Normal Saline (100mL MB+) 100 ML IV ×4 (05:16→23:30)
[2023-09-22] MEDS: Furosemide 40 MG Tablet PO ×2 (06:25→12:47)
[2023-09-22 07:27] LABS: Anion Gap 4 (5-15); BUN 17 mg/dL (7-18); BUN/Creat Ratio 18.9 RATIO (10-20); Calcium,Total 8.4 mg/dL (8.5-10.1); Chloride 106 mmol/L (98-107); EST Glomerular Filtration Rate 94 mL/min (>60); Est Glom Filt Rate - Afr Amer 114 mL/min (>60); Estimated Creatinine Clearance 96.01 ml/min; Glucose 110 mg/dL (74-106); Potassium 3.8 mmol/L (3.5-5.1); Sodium Level 138 mmol/L (136-145)
--- NOTE | 2023-09-22 07:52 | PN.HOSP_ITS ---
Reason for Visit Reason for Visit: Diagnoses Chronic venous hypertension (idiopathic) with ulcer and inflammation of right l ower extremity (09/21/23) Subjective Subjective No new complaints. Objective Data Objective Data Vital Signs: Vital Signs Temp Pulse Resp BP Pulse Ox O2 Del Method 36.6 C 68 16 128/76 H 96 Room Air 09/22/23 02:09 09/22/23 02:09 09/22/23 02:09 09/22/23 02:09 09/22/23 02:09 09/22/23 02:09 Oxygen Delivery Method Room Air Weight: 148.3 kg Body Mass Index (BMI) 48.2 Intake & Output: Intake and Output for Last 24 Hours 09/20/23 09/21/23 09/22/23 23:59 23:59 23:59 Intake Total 702 / 702 415.5 / 415.5 Output Total 550 / 850 550 / 550 Balance 152 / -148 -134.5 / -134.5 Lab / Micro Data 09/21/23 10:20 09/22/23 06:40 Labs: Laboratory Results - last 24 hr 09/21/23 10:20: WBC 7.6, RBC 4.66, Hgb 12.6 L, Hct 40.3, MCV 86.5, MCH 27.0, MCHC 31.3 L, RDW Std Deviation 45.5 H, RDW Coeff of Kelly 14.5, Plt Count 293, MPV 8.7, Immature Gran % (Auto) 0.400, Neut % (Auto) 59.8, Lymph % (Auto) 21.0, [place] % (Auto) 10.3 H, Eos % (Auto) 8.2 H, Baso % (Auto) 0.3, Absolute Neuts (auto) 4.5, Absolute Lymphs (auto) 1.59, Nucleated RBC % 0, Sodium 137, Potassium 3.8, Chloride 106, Carbon Dioxide 29.0, Anion Gap 2 L, BUN 18, Creatinine 0.95, Est GFR (MDRD) Af Amer 107, Est GFR (MDRD) Non-Af 89, BUN/Creatinine Ratio 19.0, Glucose 99, Lactic Acid 1.0, Calcium 8.6, Total Bilirubin 0.60, AST 18, ALT 22, Alkaline Phosphatase 61, Total Protein 8.1, Albumin 3.0 L, Globulin 5.1 H, Albumin/Globulin Ratio 0.6 L 09/22/23 06:40: Sodium 138, Potassium 3.8, Chloride 106, Carbon Dioxide 28.0, Anion Gap 4 L, BUN 17, Creatinine 0.90, Estim Creat Clear Calc 96.01, Est GFR (MDRD) Af Amer 114, Est GFR (MDRD) Non-Af 94, BUN/Creatinine Ratio 18.9, Glucose 110 H, Calcium 8.4 L Physical Exam Const alert and no apparent distress HEENT head/scalp atraumatic and moist oral mucous membranes Extremity Extremity Narrative: superficial right leg ulceration with granulation tissue. venous stasis dermatitis. no purulence. posterior left leg ulcerations. smaller than on right. Assessment & Plan Assessment/Plan (1) Chronic venous hypertension w/ulcer and inflammation involv right side: PLAN: polymicrobial on wound culture on 09/07 w MSSA, Moranella morganii, GB strep Was on amox/CA as outpt Will continue with IV abx with ampicillin/SB and levofloxacin Keep leg elevated. Check culture. Consult wound care. Non-smoker, doubt Buerger's disease May need biopsy to eval for pyoderma gangrenosum if fails abx again despite appropriate antibiotics. Cultures showing GNR. PLAN: Plan Chronic conditions: * HTN: continue losartan * HLP: statin * GERD: continue PPI VTE prophylaxis: SQ LMWH. Disposition: TBD. Follow up final culture results. Charges/Coding Visit Charges Inpatient E&M: 12418 Subs Hosp L1
[2023-09-22] MEDS: Losartan Potassium 100 MG Tablet PO (08:02)
[2023-09-22] MEDS: Enoxaparin 40 MG/0.4 ML Syringe SC (08:03)
[2023-09-22] MEDS: Juven (unflavored) Packet 1 PACKET PO ×2 (08:03→16:05)
[2023-09-22] MEDS: Pantoprazole Sodium 40 MG Tablet PO (08:11)
[2023-09-22 08:14] VITALS: PULSE 67; O2SAT 98
[2023-09-22 08:19] VITALS: BP 135/75; PULSE 67; RESP 18; TEMP 36.8; O2SAT 98
--- NOTE | 2023-09-22 09:31 | WOUNDNOTE ---
wound photo: right lateral lower leg
--- NOTE | 2023-09-22 09:32 | WOUNDNOTE ---
wound photo: left anterior lower leg
--- NOTE | 2023-09-22 09:33 | WOUNDNOTE ---
wound photo: left posterior lower leg
[2023-09-22] MEDS: levoFLOXacin IV 750 MG/150 ML BAG 100 MG IV (09:55)
--- NOTE | 2023-09-22 15:25 | CASEMGMT ---
SALONI BARRIOS Assessment: Face to Face with pt for initial transition planning/care coordination assessment. SALONI BARRIOS introduced self and role at [facility], pt voices understanding and consents to assessment. Pt is A&O x4 and answers all questions appropriately at this time. Care providers, pharmacy, and demographics verified/updated. Admitting Dx: Sheree Leg wound PCP: Pt. states his PCP is through [facility] in [place], [place]. He states he is not sure who it is right now. Specialists: Len (at [facility]) Preferred Pharmacy: [facility] ([place]) Insurance: [employer] Prescription Benefit: yes (pt. states he is a little unsure about this) LNOK: Rigo Lynn (Father) Living Will/HCPOA: No and No. Pt. declines to have AD information given to him. Pt. aware he can schedule an appt. with [facility] to establish these documents if he would like. Living Arrangements: Pt lives alone at [facility] in a 2-story w/basement. States he goes to [facility] for his laundry, but otherwise his home is [facility]. 2-3 steps w/railng to enter and 14 steps w/railing to second floor. Prior to this admission, pt. states he was ambulating hsi stairs fine and was I in all ADLs and IADLs. Transportation: Pt drives self and has a neighbor who could assist if needed. States his vehicle is in the parking lot at [facility]. DME: CPAP. Denies need for additional DMEat this time. HHC/SNF: Denies any previous SNF or HHC. Pt states no concerns with going home at time of dc. Pt states no further concerns/needs. CM to follow. Advised pt to ask CM if any further question/concerns/needs arise, voices understanding. Pt Goal: Home Plan: Pt. to discharge home with follow-up plans in place. He is not homebound and states he had been [facility]ues[facility] and Fridays for dressing changes for the week prior to this admission. MEME CM will continue follow pt. and plan for a safe discharge.
[2023-09-22] MEDS: 0.9% Saline Lock 10 ML Syringe IV ×2 (17:49→20:22)
[2023-09-22 20:10] VITALS: BP 124/94; PULSE 71; RESP 16; TEMP 36.8; O2SAT 97
[2023-09-22] MEDS: Pravastatin 20 MG Tablet 10 MG PO (20:22)
[2023-09-23 02:10] VITALS: BP 130/81; PULSE 61; RESP 16; TEMP 36.8; O2SAT 98
[2023-09-23] MEDS: Furosemide 40 MG Tablet PO ×2 (06:16→13:11)
[2023-09-23] MEDS: Ampicillin/Sulbactam 3 GM in 0.9% Normal Saline (100mL MB+) 100 ML IV ×4 (06:16→23:29)
[2023-09-23 07:32] LABS: Anion Gap 4 (5-15); BUN 25 mg/dL (7-18); BUN/Creat Ratio 27.9 RATIO (10-20); Calcium,Total 8.7 mg/dL (8.5-10.1); Chloride 106 mmol/L (98-107); EST Glomerular Filtration Rate 95 mL/min (>60); Est Glom Filt Rate - Afr Amer 114 mL/min (>60); Estimated Creatinine Clearance 96.01 ml/min; Glucose 105 mg/dL (74-106); Potassium 3.9 mmol/L (3.5-5.1); Sodium Level 139 mmol/L (136-145)
[2023-09-23 08:40] VITALS: BP 114/60; PULSE 72; RESP 18; TEMP 36.6; O2SAT 94
[2023-09-23] MEDS: Enoxaparin 40 MG/0.4 ML Syringe SC (08:41)
[2023-09-23] MEDS: Juven (unflavored) Packet 1 PACKET PO ×2 (08:41→16:10)
[2023-09-23] MEDS: Losartan Potassium 100 MG Tablet PO (08:41)
[2023-09-23] MEDS: Pantoprazole Sodium 40 MG Tablet PO (08:41)
--- NOTE | 2023-09-23 09:02 | PN.HOSP_ITS ---
Reason for Visit Reason for Visit: Diagnoses Chronic venous hypertension (idiopathic) with ulcer and inflammation of right l ower extremity (09/21/23) Subjective Subjective No new events. Legs feeling better. Objective Data Objective Data Vital Signs: Vital Signs Temp Pulse Resp BP Pulse Ox O2 Del Method 36.8 C 61 16 130/81 H 98 Room Air 09/23/23 02:10 09/23/23 02:10 09/23/23 02:10 09/23/23 02:10 09/23/23 02:10 09/23/23 02:10 Oxygen Delivery Method Room Air Weight: 148.3 kg Body Mass Index (BMI) 48.2 Intake & Output: Intake and Output for Last 24 Hours 09/21/23 09/22/23 09/23/23 23:59 23:59 23:59 Intake Total 702 / 702 848.0 / 848.0 224 / 224 Output Total 550 / 850 1575 / 2375 1150 / 1150 Balance 152 / -148 -727.0 / -1527.0 -926 / -926 Lab / Micro Data 09/21/23 10:20 09/23/23 06:25 Labs: Laboratory Results - last 24 hr 09/23/23 06:25: Sodium 139, Potassium 3.9, Chloride 106, Carbon Dioxide 29.0, Anion Gap 4 L, BUN 25 H, Creatinine 0.90, Estim Creat Clear Calc 96.01, Est GFR (MDRD) Af Amer 114, Est GFR (MDRD) Non-Af 95, BUN/Creatinine Ratio 27.9 H, Glucose 105, Calcium 8.7 Micro: Microbiology 09/21/23 15:30 Wound - Leg, Right Gram Stain - Final 09/21/23 15:30 Wound - Leg, Right Wound Culture - Preliminary Gram negative sosa Physical Exam Const alert and no apparent distress HEENT head/scalp atraumatic and moist oral mucous membranes Extremity Extremity Narrative: Legs wrapped, did not remove. Neuro Sensorium / Orientation: awake and alert Psych affect normal Assessment & Plan Assessment/Plan (1) Chronic venous hypertension w/ulcer and inflammation involv right side: PLAN: polymicrobial on wound culture on 09/07 w MSSA, Moranella morganii, GB strep Was on amox/CA as outpt Will continue with IV abx with ampicillin/SB and levofloxacin Keep leg elevated. Check culture. Consult wound care. Non-smoker, doubt Buerger's disease May need biopsy to eval for pyoderma gangrenosum if fails abx again despite appropriate antibiotics. Cultures showing GNR, possible Enterococcus species. Further sensitivities pending. PLAN: Plan Chronic conditions: * HTN: continue losartan * HLP: statin * GERD: continue PPI VTE prophylaxis: SQ LMWH. Disposition: TBD. Follow up final culture results. Charges/Coding Visit Charges Inpatient E&M: 35630 Subs Hosp L1
[2023-09-23] MEDS: levoFLOXacin IV 750 MG/150 ML BAG 100 MG IV (09:43)
[2023-09-23 15:07] VITALS: BP 103/43; PULSE 77; RESP 18; TEMP 36.7; O2SAT 97
[2023-09-23] MEDS: 0.9% Saline Lock 10 ML Syringe IV (16:10)
[2023-09-23] MEDS: Pravastatin 20 MG Tablet 10 MG PO (20:32)
[2023-09-23 20:35] VITALS: BP 104/67; PULSE 71; RESP 16; TEMP 37.2; O2SAT 97
[2023-09-24 02:35] VITALS: BP 134/78; PULSE 64; RESP 16; TEMP 36.6; O2SAT 96
[2023-09-24] MEDS: Ampicillin/Sulbactam 3 GM in 0.9% Normal Saline (100mL MB+) 100 ML IV ×4 (05:55→23:00)
[2023-09-24] MEDS: Furosemide 40 MG Tablet PO ×2 (05:55→12:56)
--- NOTE | 2023-09-24 07:52 | PN.HOSP_ITS ---
Reason for Visit Reason for Visit: Diagnoses Chronic venous hypertension (idiopathic) with ulcer and inflammation of right l ower extremity (09/21/23) Subjective Subjective No new issues. Objective Data Objective Data Vital Signs: Vital Signs Temp Pulse Resp BP Pulse Ox O2 Del Method 36.6 C 64 16 134/78 H 96 Room Air 09/24/23 02:35 09/24/23 02:35 09/24/23 02:35 09/24/23 02:35 09/24/23 02:35 09/24/23 02:35 Oxygen Delivery Method Room Air Weight: 148.3 kg Body Mass Index (BMI) 48.2 Intake & Output: Intake and Output for Last 24 Hours 09/22/23 09/23/23 09/24/23 23:59 23:59 23:59 Intake Total 848.0 / 848.0 598 / 598 224 / 224 Output Total 1575 / 2375 1950 / 2300 675 / 675 Balance -727.0 / -1527.0 -1352 / -1702 -451 / -451 Lab / Micro Data 09/21/23 10:20 09/24/23 06:55 Micro: Microbiology 09/21/23 15:30 Wound - Leg, Right Gram Stain - Final 09/21/23 15:30 Wound - Leg, Right Wound Culture - Preliminary Gram negative sosa Physical Exam Const alert and no apparent distress HEENT head/scalp atraumatic and moist oral mucous membranes Assessment & Plan Assessment/Plan (1) Chronic venous hypertension w/ulcer and inflammation involv right side: PLAN: polymicrobial on wound culture on 09/07 w MSSA, Moranella morganii, GB strep Was on amox/CA as outpt Will continue with IV abx with ampicillin/SB and levofloxacin Keep leg elevated. Check culture. Consult wound care. Non-smoker, doubt Buerger's disease May need biopsy to eval for pyoderma gangrenosum if fails abx again despite appropriate antibiotics. Cultures thus far showing Monganella morganii, E. faecalis and possible pseudom onas and proteus. The latter 2 have not been confirmed and will require additional testing. [facility], who states that they should have the information by tomorrow. PLAN: Plan Chronic conditions: * HTN: continue losartan * HLP: statin * GERD: continue PPI VTE prophylaxis: SQ LMWH. Disposition: TBD. Follow up final culture results. Charges/Coding Visit Charges Inpatient E&M: 42317 Subs Hosp L1
[2023-09-24] MEDS: Pantoprazole Sodium 40 MG Tablet PO (08:07)
[2023-09-24] MEDS: Enoxaparin 40 MG/0.4 ML Syringe SC (08:07)
[2023-09-24] MEDS: Juven (unflavored) Packet 1 PACKET PO ×2 (08:07→17:21)
[2023-09-24] MEDS: Losartan Potassium 100 MG Tablet PO (08:07)
--- NOTE | 2023-09-24 08:22 | WOUNDNOTE ---
wound photo: right lateral lower leg
--- NOTE | 2023-09-24 08:23 | WOUNDNOTE ---
wound photo: left lower leg
[2023-09-24 08:24] LABS: Anion Gap 3 (5-15); BUN 25 mg/dL (7-18); BUN/Creat Ratio 29.8 RATIO (10-20); Calcium,Total 8.5 mg/dL (8.5-10.1); Chloride 105 mmol/L (98-107); Creatinine, Serum 0.84 mg/dL (0.70-1.30); EST Glomerular Filtration Rate 102 mL/min (>60); Est Glom Filt Rate - Afr Amer 124 mL/min (>60); Estimated Creatinine Clearance 102.87 ml/min; Glucose 101 mg/dL (74-106); Potassium 3.6 mmol/L (3.5-5.1); Sodium Level 136 mmol/L (136-145)
--- NOTE | 2023-09-24 08:24 | WOUNDNOTE ---
wound photo: left posterior lower leg
[2023-09-24 08:30] VITALS: BP 135/75; PULSE 63; RESP 18; TEMP 36.6; O2SAT 94
[2023-09-24] MEDS: levoFLOXacin IV 750 MG/150 ML BAG 100 MG IV (10:07)
[2023-09-24 14:17] VITALS: BP 126/89; PULSE 77; RESP 18; TEMP 37.3; O2SAT 96
[2023-09-24 22:57] VITALS: BP 144/66; PULSE 82; RESP 18; TEMP 36.6; O2SAT 100
[2023-09-24] MEDS: Pravastatin 20 MG Tablet 10 MG PO (22:58)
[2023-09-25 03:32] VITALS: BP 134/75; PULSE 71; RESP 18; TEMP 36.6; O2SAT 96
[2023-09-25] MEDS: Furosemide 40 MG Tablet PO (06:28)
[2023-09-25] MEDS: Ampicillin/Sulbactam 3 GM in 0.9% Normal Saline (100mL MB+) 100 ML IV (06:28)
--- NOTE | 2023-09-25 08:14 | PN.HOSP_ITS ---
Reason for Visit Reason for Visit: Diagnoses Chronic venous hypertension (idiopathic) with ulcer and inflammation of right l ower extremity (09/21/23) Subjective Subjective Feeling well. Denies complaints. Objective Data Objective Data Vital Signs: Vital Signs Temp Pulse Resp BP Pulse Ox O2 Del Method 36.6 C 71 18 134/75 H 96 Room Air 09/25/23 03:32 09/25/23 03:32 09/25/23 03:32 09/25/23 03:32 09/25/23 03:32 09/25/23 03:32 Oxygen Delivery Method Room Air Weight: 148.3 kg Body Mass Index (BMI) 48.2 Intake & Output: Intake and Output for Last 24 Hours 09/23/23 09/24/23 09/25/23 23:59 23:59 23:59 Intake Total 598 / 598 598 / 598 1024 / 1024 Output Total 1950 / 2300 675 / 675 725 / 725 Balance -1352 / -1702 -77 / -77 299 / 299 Lab / Micro Data 09/21/23 10:20 09/24/23 06:55 Labs: Laboratory Results - last 24 hr 09/24/23 06:55: Sodium 136, Potassium 3.6, Chloride 105, Carbon Dioxide 28.0, Anion Gap 3 L, BUN 25 H, Creatinine 0.84, Estim Creat Clear Calc 102.87, Est GFR (MDRD) Af Amer 124, Est GFR (MDRD) Non-Af 102, BUN/Creatinine Ratio 29.8 H, Glucose 101, Calcium 8.5 Micro: Microbiology 09/21/23 15:30 Wound - Leg, Right Gram Stain - Final 09/21/23 15:30 Wound - Leg, Right Wound Culture - Preliminary Morganella morganii sp morgani GPC Poss Enterococcus sp Gram negative sosa Physical Exam Const alert and no apparent distress Extremity Extremity Narrative: leg wrapped--did not remove. Assessment & Plan Assessment/Plan (1) Chronic venous hypertension w/ulcer and inflammation involv right side: PLAN: polymicrobial on wound culture on 09/07 w MSSA, Moranella morganii, GB strep Was on amox/CA as outpt Will continue with IV abx with ampicillin/SB and levofloxacin Keep leg elevated. Check culture. Consult wound care. Non-smoker, doubt Buerger's disease May need biopsy to eval for pyoderma gangrenosum if fails abx again despite appropriate antibiotics. Cultures thus far showing Monganella morganii, E. faecalis, pseudomonas and possible proteus. The latter 2 have not been confirmed and will require additional testing. Plan on discharge with amox/CA and ciprofloxacin PLAN: Plan Chronic conditions: * HTN: continue losartan * HLP: statin * GERD: continue PPI VTE prophylaxis: SQ LMWH. Disposition: TBD. Follow up final culture results.
[2023-09-25 09:37] VITALS: BP 140/81; PULSE 69; RESP 20; TEMP 36.4; O2SAT 96
[2023-09-25] MEDS: Pantoprazole Sodium 40 MG Tablet PO (09:43)
[2023-09-25] MEDS: Juven (unflavored) Packet 1 PACKET PO (09:43)
[2023-09-25] MEDS: Losartan Potassium 100 MG Tablet PO (09:43)
[2023-09-25] MEDS: Enoxaparin 40 MG/0.4 ML Syringe SC (09:43)
[2023-09-25] MEDS: levoFLOXacin IV 750 MG/150 ML BAG 100 MG IV (09:48)
--- NOTE | 2023-09-25 11:09 | DS.PCM_ITS ---
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 Check culture. Consult wound care. Non-smoker, doubt Buerger's disease May need biopsy to eval for pyoderma gangrenosum if fails abx again despite irina ropriate antibiotics. Cultures thus far showing Monganella morganii, E. faecalis, pseudomonas and p ossible proteus. The latter 2 have not been confirmed and will require additional testing. Plan on discharge with amox/CA and ciprofloxacin Plan Chronic conditions: * HTN: continue losartan * HLP: statin * GERD: continue PPI VTE prophylaxis: SQ LMWH. Disposition: TBD. Follow up final culture results. Medications at Discharge Home Medications furosemide 40 mg tablet 40 mg PO BID 06/24/21 lansoprazole 30 mg capsule,delayed release 30 mg PO DAILY 06/24/21 losartan 100 mg tablet 100 mg PO DAILY 06/24/21 pravastatin 10 mg tablet 10 mg PO DAILY 06/24/21 amoxicillin 875 mg-potassium clavulanate 125 mg tablet 1 tab PO BID #8 tabs 09/25/23 levofloxacin 750 mg tablet 750 mg PO DAILY #4 tabs 09/25/23 Hospital Course Operations None Procedures None Summary of Care Provided Minutes Spent on Discharge: 32 Hospital Course: Patient presents with worsening venous stasis wounds on his legs. More currently on his right. Patient had recent cultures that were polymicrobial and patient was on antibiotics but had continued to get worse. Patient was directed to the emergency room. Patient had cultures performed here and patient was started on broad-spectrum antibiotics. Cultures grew out Morganella morganii, Enterococcus faecalis, and Pseudomonas aeruginosa's and Proteus mirabilis. Patient will be discharged to complete course of levofloxacin as well as Augmentin. Patient goes to wound care to have his wounds addressed but he does note that he does have the wounds get saturated at times. Is going to him that the saturated wounds, dressing is not changed, may impede its healing. Patient instructed to follow-up with wound care but also to manage his wounds accordingly and may need to wrap on his own. Weight / BMI Weight Weight: 148.3 kg Body Mass Index (BMI) 48.2 ABG / Lab / Microbiology Data 09/21/23 10:20 09/24/23 06:55 Microbiology: Microbiology 09/21/23 15:30 Wound - Leg, Right Gram Stain - Final 09/21/23 15:30 Wound - Leg, Right Wound Culture - Preliminary Morganella morganii sp morgani GPC Poss Enterococcus sp Gram negative sosa D/C Instructions Discharge Diet: No restrictions Meaningful Use Info Meaningful Use Diagnoses (Choose all that apply): None applicable Discharge Plan Admission Admit Date/Time: 09/21/23 11:44 Primary Reason for Your Visit: Venous stasis wound. Attending Provider: Hemant Mathis Primary Care Provider: Roger Geller NP Instructions Additional Instructions / Restrictions: Wound on your right leg showed multiple organisms and you will be on antibiotics with 2 different antibiotics. Please take this till completion. Also very important that you keep your wounds clean and dry. If you note that your dressing is getting saturated do not do to go to the wound care center you will need to remove the dressing, clean the wounds [facility] its dry and then reapply the dressing accordingly. If you notice any increased redness or discharge, notify someone or return to the emergency room. Discharge Orders/Prescriptions Prescriptions: New levofloxacin 750 mg tablet 750 mg PO DAILY Qty: 4 0RF amoxicillin-pot clavulanate 875-125 mg tablet 1 tab PO BID Qty: 8 0RF Continued furosemide 40 mg Tablet 40 mg PO BID losartan 100 mg Tablet 100 mg PO DAILY pravastatin 10 mg Tablet 10 mg PO DAILY lansoprazole 30 mg Capsule,Delayed Release(Dr/Ec) 30 mg PO DAILY Referrals / Follow Up: Rigo Harrington MD [Med Staff - Active Staff] - Within 1 Week Roger Geller NP, [employer]PORATE [employer]ICAL RE[employer]UITER-C [Primary Care Provider] - Within 2 Weeks Disposition Disposition (needs filled in before D/C Order can be placed): Home, Self Care
[2023-09-25] MEDS: Acetaminophen 325 MG Tablet 650 MG PO (14:35)
[2023-09-25 15:11] VITALS: BP 131/75; PULSE 72; RESP 18; TEMP 36.7; O2SAT 96
== END 2023-09-25 16:01 | disposition home or self-care (01) | DRG 264 ==
LOC: ED 12:04 → MS3 09-22 09:26
PROVIDERS: Emergency Provider Emergency Medicine; PCP Nurse Practitioner Family
DX: I83.212 Varicose veins of right lower extremity with both ulcer of calf and inflammation (principal); L97.212 Non-pressure chronic ulcer of right calf with fat layer exposed; L97.829 Non-pressure chronic ulcer of other part of left lower leg with unspecified severity; I83.228 Varicose veins of left lower extremity with both ulcer of other part of lower extremity and inflammation; Z68.42 Body mass index [BMI] 45.0-49.9, adult; E66.01 Morbid (severe) obesity due to excess calories; I10 Essential (primary) hypertension; E78.5 Hyperlipidemia, unspecified; K21.9 Gastro-esophageal reflux disease without esophagitis; B95.2 Enterococcus as the cause of diseases classified elsewhere; B96.4 Proteus (mirabilis) (morganii) as the cause of diseases classified elsewhere; B96.5 Pseudomonas (aeruginosa) (mallei) (pseudomallei) as the cause of diseases classified elsewhere; Z79.899 Other long term (current) drug therapy; I89.0 Lymphedema, not elsewhere classified
CPT/HCPCS: 11042; 36415; 80048; 80053; 83605; 85025; 87070; 87075; 87077; 87186; 87205; 96365; 96366; 96367; 96372; 97802; 99221; 99285; J7040; J7050; A4216; G0378; J0295

== ENCOUNTER 2023-10-26 08:15 | Outpatient (RCR) | payer BC, SELFPAY ==
[2023-09-29 00:54] VITALS: BP 131/79; PULSE 83; RESP 18; TEMP 36.1; BMI 51.7
[2023-10-05 08:28] VITALS: BP 130/60; PULSE 69; TEMP 36.4; BMI 51.7
--- NOTE | 2023-10-05 15:07 | HP.PCM_ITS ---
History of Present Illness Date of Service: 10/05/23 Chief Complaint: Venous stasis dermatitis with swelling and edema bilaterally; venous stasis ulcerations of the lower extremities History of Wound: This is a 53-year-old male with a longstanding history of chronic venous disease. He has previously been treated at this facility for venous stasis ulcerations of both lower extremities. He was most recently treated only several months ago. He presented at this time with bilateral lower extremity swelling and edema, with venous ulcerations in the left lower extremity. Upon his prior discharge, the patient had been instructed in the use of his Velcro compression garments. He had been advised to elevate his lower extremities as much as possible, to heart level, or higher. Efforts have been made to obtain pneumatic mechanical compression pumps, but the patient's insurance did not allow for this benefit. The patient has had chronic venous stasis dermatitis in his lower extremities for several years. 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 His profession requires him to sit for prolonged periods. The patient is morbidly obese. He denies a history of deep vein thrombosis in the past. He claims to sleep on a flat mattress at night. [facility] Medical History Chronic venous hypertension w/ulcer and inflammation involv left side Chronic venous hypertension w/ulcer and inflammation involv right side Chronic venous hypertension with inflammation involving left side Chronic venous insufficiency CPAP (continuous positive airway pressure) dependence GERD (gastroesophageal reflux disease) Hyperlipidemia Hyperpigmentation Hypertension Leg pain Leg swelling Lipodermatosclerosis Morbid obesity Non-smoker Sleep apnea Venous hypertension, chronic, with inflammation Venous hypertension, chronic, with ulcer and inflammation Venous stasis dermatitis of left lower extremity Venous stasis ulcer Venous ulcer of left leg Venous ulcer of right leg Home Medications furosemide 40 mg tablet 40 mg PO BID 06/24/21 [History Last Taken 09/20/23] lansoprazole 30 mg capsule,delayed release 30 mg PO DAILY 06/24/21 [History Last Taken 09/20/23] losartan 100 mg tablet 100 mg PO DAILY 06/24/21 [History Last Taken 09/20/23] pravastatin 10 mg tablet 10 mg PO DAILY 06/24/21 [History Last Taken 09/20/23] amoxicillin 875 mg-potassium clavulanate 125 mg tablet 1 tab PO BID #8 tabs 09/25/23 [Rx Last Taken Unknown] levofloxacin 750 mg tablet 750 mg PO DAILY #4 tabs 09/25/23 [Rx Last Taken Unk nown] Allergy/AdvReac Type Severity Reaction Status Date / Time No Known Allergies Allergy Verified 09/21/23 09:25 Surgical History H/O umbilical hernia repair Social History 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 General Appearance: cooperative, comfortable, well kempt and well developed Orientation / Consciousness: awake, oriented to person, oriented to place and oriented to time HEENT normocephalic, head/scalp atraumatic and hearing grossly normal bilaterally Head and Scalp: normal to inspection, normocephalic and atraumatic Face and Sinus: normal facial exam External Ear: external ears normal Eyes PERRL and EOMs intact bilaterally General Eye: normal appearance of both eyes Resp normal respiratory effort, normal air movement, no retractions and no use of accessory muscles Effort and Inspection: able to speak in complete sentences and symmetric chest movement Extremity no calf tenderness General Extremity: Negative for clubbing or cyanosis Skin Wound Narrative: The swelling and edema in the patient's lower extremities is much improved, and now at a minimum. The large ulcerations in the patient's lower extremities are markedly improved. There are several large areas of sloughing epidermis, at the sites of previous ulcerations, suggesting that significant healing has occurred. Only one open ulceration remains, located on the right lateral calf, several centimeters superior to the right lateral malleolus. It is generally pink and healthy in appearance, with evidence of granulation tissue. There is no sign of infection or cellulitis. Dimensions are documented elsewhere. Neuro oriented x3, CN's II-XII intact bilaterally, moves all extremities and no focal motor deficits Sensorium / Orientation: awake, alert, oriented to person, oriented to place and oriented to time Psych Appearance: grossly normal and appropriate Attitude: calm Activity / Motor Behavior: appropriate eye contact Speech: normal speech Mood & Affect: euthymic mood Thought Process: normal thought process Thought Content: normal thought content Attention / Concentration: attention grossly intact Debridement Note Debridement Note Wound debrided: Right lateral calf ulceration Laterality: Right Type of Debridement: Excisional debridement Anesthesia Used: 5% Lidocaine Gel Depth: Down to and including healthy tissue and in the subcutaneous layer Percentage of wound debrided: 100 Instrument Used: 5mm curette Tissue Removed: Bioburden and nonviable tissue Severity: Fat Layer Exposed Amount of bleeding with debridement: Mild Bleeding Controlled with: Compression and gauze Patient tolerated procedure: Patient tolerated procedure well Post-Debridement Measurements and Additional Note: Post-Debridement Measurements/Treatment - Nurse 1 - General Ulcer Assessment Start: 10/05/23 08:27 Freq: Status: Active Protocol: JUSTINE Activity Type Activity Date Activity User E-sign Co-sign Detail Recorded Client Recorded Date Recorded By Document 10/05/23 08:28 Desktop 10/05/23 08:48 10/05/23 08:28 - Today's Visit Information Type of service Follow-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 ) Arrival Mode Ambulatory Transfer Assistance None Patient Identification Verified (Name & Yes ) Patient Requires Transmission-Based No Precautions Height and Weight Body Mass Index (BMI) 51.7 BMI Classification Obese Vital Signs Temperature (97.8 F-99.1 F) 97.5 F L Temperature Source Temporal Pulse Rate (60-100) 69 Pulse Location Monitor Oxygen Delivery Method Room Air Blood Pressure (90/60-120/80) 130/60 H Blood Pressure Mean 83 Source Monitor Position Sitting Blood Pressure Location Right Arm History Since Last Visit- (Skip if this is Patient's initial visit) Have you changed medications since your No last visit? Any new allergies or adverse reactions No Had a fall/change in ADL's that may No increase risk of falls Signs or symptoms of abuse and/or No neglect since last visit Have you been in the hospital since your Yes last visit? Has dressing in place as prescribed Yes Has compression in place as prescribed Yes Has offloadiing in place as prescribed No Experienced any changes in pain level or No management Left Footwear Regular Shoe Right Footwear Regular Shoe Pain Scale: 0-10 Numeric Is Patient Pain Free? Yes WC - Nurse 1 - General Ulcer Measurement Start: 10/05/23 08:27 Freq: Status: Active Protocol: Activity Type Activity Date Activity User E-sign Co-sign Detail Recorded Client Recorded Date Recorded By Document 10/05/23 08:28 Desktop 10/05/23 08:48 10/05/23 08:28 Wound Center Nurse 1 6. RLE lateral -Combined with other wound No -Current Size (cm) - Length 7.7 -Current Size (cm) - Width 9.0 -Current Size (cm) - Depth 0.2 -Total Square Cm 69.30 -Photo Taken No -Epithelialization None Present -Tunneling No -Undermining/Tunneling No -Circular Undermining No -Exudate Amt Large -Exudate Type Serosanguineous -Wound Margin Distinct, Outline Attached -Granulation Amt Medium (34-66%) -Necrosis Amt Large (67-100%) -Necrotic Tissue Type Adherent Slough -Structure Exposed N/A -Texture (Earlene-wound Skin Appearance) Assessed -Moisture (Earlene-wound Skin Appearance) Assessed -Color (Earlene-wound Skin Appearance) Assessed -Temperature (Earlene-wound Skin No Abnormality Appearance) (Pt Warm) -Tenderness on Palpation (Earlene-wound Yes Skin Appearance) -Ulcer Cleansing Soap and Water -Foul Odor after Cleansing No -Anesthetic Used Cetacaine 5. LLE anterior -Combined with other wound No -Current Size (cm) - Length 1.7 -Current Size (cm) - Width 2.7 -Current Size (cm) - Depth 0.1 -Total Square Cm 4.59 -Photo Taken No -Epithelialization Small 1-33% -Tunneling No -Undermining/Tunneling No -Circular Undermining No -Exudate Amt Medium -Exudate Type Serosanguineous -Wound Margin Flat & Intact -Granulation Amt Small (1-33%) -Slough/Fibrin Yes -Necrosis Amt Medium (34-66%) -Necrotic Tissue Type Adherent Slough -Structure Exposed N/A -Texture (Earlene-wound Skin Appearance) Assessed -Moisture (Earlene-wound Skin Appearance) Assessed -Color (Earlene-wound Skin Appearance) Assessed -Temperature (Earlene-wound Skin No Abnormality Appearance) (Pt Warm) -Tenderness on Palpation (Earlene-wound Yes Skin Appearance) -Ulcer Cleansing Soap and Water -Foul Odor after Cleansing No -Anesthetic Used Cetacaine 4. LLE post -Combined with other wound Yes -Combined with (Name of Wound-Exactly posterior as it is documented) -Current Size (cm) - Length 4.0 -Current Size (cm) - Width 0.8 -Current Size (cm) - Depth 0.1 -Total Square Cm 3.20 -Photo Taken No -Epithelialization Small 1-33% -Tunneling No -Undermining/Tunneling No -Circular Undermining No -Exudate Amt Medium -Exudate Type Serosanguineous -Wound Margin Distinct, Outline Attached -Granulation Amt Small (1-33%) -Necrosis Amt Small (1-33%) -Necrotic Tissue Type Adherent Slough -Structure Exposed N/A -Texture (Earlene-wound Skin Appearance) Assessed -Moisture (Earlene-wound Skin Appearance) Assessed -Color (Earlene-wound Skin Appearance) Assessed -Temperature (Earlene-wound Skin No Abnormality Appearance) (Pt Warm) -Tenderness on Palpation (Earlene-wound Yes Skin Appearance) -Ulcer Cleansing Soap and Water -Foul Odor after Cleansing No -Anesthetic Used Cetacaine Point of measurement (cm from the medial 45.4 instep) Point of Measurement (cm from the medial 27.0 instep) Left Calf (cm) 46.8 Left Ankle (cm) 27.0 WC - Nurse 2 - General Ulcer CM Notes Start: 10/05/23 08:27 Freq: Status: Active Protocol: Activity Type Activity Date Activity User E-sign Co-sign Detail Recorded Client Recorded Date Recorded By Document 10/05/23 13:31 PL [id number] 10/05/23 13:34 PL 10/05/23 13:31 Wound Center Nurse 2 7. RLE anterior -Procedure Performed No -Wound/Ulcer Outcome Healed- Epithelialized 6. RLE lateral -Time 08:58 -Correct Patient Yes -Correct Side, Site, Position Yes -Correct Procedure Yes -Procedure Performed Yes -Type of Procedure Debridement -Clinical Debridement Subcutaneous -Tissue Removed Subcutaneous -Post Debridement (cm) - Length 7.7 -Post Debridement (cm) - Width 9.0 -Post Debridement (cm) - Depth 0.2 -Total Square (Post) (cm) 69.30 -Area of Debridement (cm) - Length 7.7 -Area of Debridement (cm) - Width 9.0 -Total Square (Area) (cm) 69.30 -Tunneling No -Undermining/Tunneling No -Circular Undermining No -Wound/Ulcer Outcome Not Healed -Ulcer Cleansing Rinsed/ Irrigated with Saline -Foul Odor after Cleansing No -Bioengineered Tissue No -Bleeding Controlled with Pressure -Treatment Response Procedure Tolerated Well -Debridement - Subq, 1st 20sq cm No 5. LLE anterior -Time 08:58 -Correct Patient Yes -Correct Side, Site, Position Yes -Correct Procedure Yes -Procedure Performed Yes -Type of Procedure Debridement -Clinical Debridement Subcutaneous -Tissue Removed Subcutaneous -Post Debridement (cm) - Length 1.7 -Post Debridement (cm) - Width 2.7 -Post Debridement (cm) - Depth 0.1 -Total Square (Post) (cm) 4.59 -Area of Debridement (cm) - Length 1.7 -Area of Debridement (cm) - Width 2.7 -Total Square (Area) (cm) 4.59 -Tunneling No -Undermining/Tunneling No -Circular Undermining No -Wound/Ulcer Outcome Not Healed -Ulcer Cleansing Rinsed/ Irrigated with Saline -Foul Odor after Cleansing No -Bioengineered Tissue No -Bleeding Controlled with Pressure -Treatment Response Procedure Tolerated Well -Debridement - Subq, 1st 20sq cm No 4. LLE post -Time 08:58 -Correct Patient Yes -Correct Side, Site, Position Yes -Correct Procedure Yes -Procedure Performed Yes -Type of Procedure Debridement -Clinical Debridement Subcutaneous -Tissue Removed Subcutaneous -Post Debridement (cm) - Length 4.0 -Post Debridement (cm) - Width 0.8 -Post Debridement (cm) - Depth 0.1 -Total Square (Post) (cm) 3.20 -Area of Debridement (cm) - Length 4.0 -Area of Debridement (cm) - Width 0.8 -Total Square (Area) (cm) 3.20 -Tunneling No -Undermining/Tunneling No -Circular Undermining No -Wound/Ulcer Outcome Not Healed -Ulcer Cleansing Rinsed/ Irrigated with Saline -Foul Odor after Cleansing No -Bioengineered Tissue No -Bleeding Controlled with Pressure -Treatment Response Procedure Tolerated Well -Debridement - Subq, 1st 20sq cm Yes -Debridement, SubQ, ea addt'l 20sq cm 3 or part thereof Pain Scale: 0-10 Numeric Is Patient Pain Free? Yes - Nurse 3 - General Ulcer D/C NN Start: 10/05/23 08:27 Freq: Status: Active Protocol: Activity Type Activity Date Activity User E-sign Co-sign Detail Recorded Client Recorded Date Recorded By Document 10/05/23 09:13 Desktop 10/05/23 09:26 10/05/23 09:13 Wound Care Center Nurse 3 6. RLE lateral -Ulcer Cleansing Not Cleansed -Foul Odor after Cleansing No -Negative Pressure Wound Therapy N/A -Primary Dressing Applied Aquacel AG 4x4 -Primary Dressing Covered/Secured with Dry Gauze & Roll Gauze, Secured with Tape -Aquacel AG 4x4 1 5. LLE anterior -Ulcer Cleansing Not Cleansed -Foul Odor after Cleansing No -Negative Pressure Wound Therapy N/A -Primary Dressing Covered/Secured with Dry Gauze & Roll Gauze 4. LLE post -Ulcer Cleansing Not Cleansed -Foul Odor after Cleansing No -Negative Pressure Wound Therapy N/A Right -Lotion applied to leg before Yes compression wrap -Tubular Bandage Double Layer -Size of Tubigrip Used Size E -Size E ($) 2 Left -Lotion applied to leg before Yes compression wrap -Tubular Bandage Double Layer -Size of Tubigrip Used Size E -Size E ($) 2 Pain Scale: 0-10 Numeric Is Patient Pain Free? Yes Teaching: Wound Center Control Swelling with Leg Elevation -Person Taught Patient -Teaching Method Discussion -Response to teaching Verbalize understanding Compression Wraps & Stockings -Person Taught Patient -Teaching Method Discussion -Response to teaching Verbalize understanding - Visit Discharge Discharge Condition Stable Ambulatory Status Ambulatory Transportation Private Auto Medication Reconcilliation completed & Yes provided to patient/care provider Clinical Summary of Care Provided Yes Assessment/Plan Assessment/Plan (1) Venous ulcer of right leg: CODE(S): I83.019 - Varicose veins of right lower extremity with ulcer of unspecified site; L97.919 - Non-pressure chronic ulcer of unspecified part of right lower leg with unspecified severity (2) Chronic venous hypertension w/ulcer and inflammation involv right side: CODE(S): I87.331 - Chronic venous hypertension (idiopathic) with ulcer and inflammation of right lower extremity (3) Venous ulcer of left leg: CODE(S): I83.029 - Varicose veins of left lower extremity with ulcer of unspecified site; L97.929 - Non-pressure chronic ulcer of unspecified part of left lower leg with unspecified severity (4) Chronic venous hypertension w/ulcer and inflammation involv left side: CODE(S): I87.332 - Chronic venous hypertension (idiopathic) with ulcer and inflammation of left lower extremity (5) Chronic venous hypertension with inflammation involving left side: CODE(S): I87.322 - Chronic venous hypertension (idiopathic) with inflammation of left lower extremity (6) Venous stasis dermatitis of left lower extremity: CODE(S): I87.2 - Venous insufficiency (chronic) (peripheral) (7) Venous hypertension, chronic, with ulcer and inflammation: CODE(S): I87.339 - Chronic venous hypertension (idiopathic) with ulcer and inflammation of unspecified lower extremity; L97.909 - Non-pressure chronic ulcer of unspecified part of unspecified lower leg with unspecified severity QUALIFIERS: Laterality: right Qualified Code(s): I87.331 - Chronic venous hypertension (idiopathic) with ulcer and inflammation of right lower extremity; L97.919 - Non-pressure chronic ulcer of unspecified part of right lower leg with unspecified severity (8) Leg swelling: CODE(S): M79.89 - Other specified soft tissue disorders (9) Leg pain: CODE(S): M79.606 - Pain in leg, unspecified QUALIFIERS: Laterality: bilateral Qualified Code(s): M79.604 - Pain in right leg; M79.605 - Pain in left leg (10) Hyperlipidemia: CODE(S): E78.5 - Hyperlipidemia, unspecified (11) Hypertension: CODE(S): I10 - Essential (primary) hypertension (12) Lipodermatosclerosis: CODE(S): I83.10 - Varicose veins of unspecified lower extremity with inflammation QUALIFIERS: Laterality: bilateral Qualified Code(s): I83.11 - Varicose veins of right lower extremity with inflammation; I83.12 - Varicose veins of left lower extremity with inflammation (13) Hyperpigmentation: CODE(S): L81.9 - Disorder of pigmentation, unspecified (14) Morbid obesity: CODE(S): E66.01 - Morbid (severe) obesity due to excess calories (15) H/O umbilical hernia repair: CODE(S): Z98.890 - Other specified postprocedural states; Z87.19 - Personal history of other diseases of the digestive system (16) Chronic venous insufficiency: CODE(S): I87.2 - Venous insufficiency (chronic) (peripheral) PLAN: Plan This is a 53-year-old male with a longstanding history of chronic venous insufficiency, venous hypertension with inflammation and ulceration, and prior episodes of venous stasis ulcerations. He also experiences chronic swelling and edema in his lower extremities. 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 The patient's occupation prevents him from elevating his lower extremities as recommended. The nature of his occupation requires long periods of idle sitting. A lengthy discussion has been undertaken as to the appropriate conservative treatment measures relative to the patient's presenting symptoms and manifestations. The patient has been treated for numerous weeks relative to the swelling, edema, and ulcerations in his lower extremities. However, the degree of swelling and edema, and the expanding ulcerations in the patient's lower extremities, associated with the development of cellulitis, prompted the patient to be referred to the emergency department for inpatient admission. The patient was admitted to [facility] on September 21, where an inpatient stay transpired for 4 days. During that period of time, the patient was treated with intravenous antibiotics which included Augmentin and Levaquin. The patient was subsequently discharged on oral Augmentin and Cipro, the course of which has now been completed. At the time of the patient's presentation today, following his recent hospitalization, there has been significant improvement in the status of his lower extremity swelling and edema, with extensive healing of his lower extremity ulcerations. Only one ulceration remains, located on the right lateral calf. It has been recommended that the patient take several days or weeks off from work, and remain at home with his legs elevated. 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 As result, the patient's presentation today reveals significant improvement over that which had been noted at his last visit several weeks ago. We are to continue with conservative treatment measures which include leg elevation, avoidance of idle sitting, activity as tolerated, and compression to the patient's lower extremities by means of CircAid's, which the patient has in his possession. Weight loss has also been recommended. We are to continue with the use of Aquacel Ag topically to the ulceration on the right lateral calf, which will be applied by the patient on a daily basis. The patient has been instructed in the appropriate means of application. Moisturizing skin lotion is to be applied topically to the intact skin in the gaiter areas bilaterally. The patient is to return in 1 week for reevaluation. Total time: 28 minutes
[2023-10-12 08:04] VITALS: BP 144/68; PULSE 61; RESP 18; TEMP 36.2; BMI 51.7
--- NOTE | 2023-10-12 08:57 | PCM.WC.HP ---
History of Present Illness Date of Service: 10/12/23 Chief Complaint: Venous stasis dermatitis with swelling and edema bilaterally; venous stasis ulcerations of the lower extremities History of Wound: This is a 53-year-old male with a longstanding history of chronic venous disease. He has previously been treated at this facility for venous stasis ulcerations of both lower extremities. He was most recently treated only several months ago. He presented at this time with bilateral lower extremity swelling and edema, with venous ulcerations in the left lower extremity. Upon his prior discharge, the patient had been instructed in the use of his Velcro compression garments. He had been advised to elevate his lower extremities as much as possible, to heart level, or higher. Efforts have been made to obtain pneumatic mechanical compression pumps, but the patient's insurance did not allow for this benefit. The patient has had chronic venous stasis dermatitis in his lower extremities for several years. 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 His profession requires him to sit for prolonged periods. The patient is morbidly obese. He denies a history of deep vein thrombosis in the past. He claims to sleep on a flat mattress at night. [facility] Medical History Chronic venous hypertension w/ulcer and inflammation involv left side Chronic venous hypertension w/ulcer and inflammation involv right side Chronic venous hypertension with inflammation involving left side Chronic venous insufficiency CPAP (continuous positive airway pressure) dependence GERD (gastroesophageal reflux disease) Hyperlipidemia Hyperpigmentation Hypertension Leg pain Leg swelling Lipodermatosclerosis Morbid obesity Non-smoker Sleep apnea Venous hypertension, chronic, with inflammation Venous hypertension, chronic, with ulcer and inflammation Venous stasis dermatitis of left lower extremity Venous stasis ulcer Venous ulcer of left leg Venous ulcer of right leg Home Medications furosemide 40 mg tablet 40 mg PO BID 06/24/21 [History Last Taken 09/20/23] lansoprazole 30 mg capsule,delayed release 30 mg PO DAILY 06/24/21 [History Last Taken 09/20/23] losartan 100 mg tablet 100 mg PO DAILY 06/24/21 [History Last Taken 09/20/23] pravastatin 10 mg tablet 10 mg PO DAILY 06/24/21 [History Last Taken 09/20/23] amoxicillin 875 mg-potassium clavulanate 125 mg tablet 1 tab PO BID #8 tabs 09/25/23 [Rx Last Taken Unknown] levofloxacin 750 mg tablet 750 mg PO DAILY #4 tabs 09/25/23 [Rx Last Taken Unknown] Allergy/AdvReac Type Severity Reaction Status Date / Time No Known Allergies Allergy Verified 09/21/23 09:25 Surgical History H/O umbilical hernia repair Social History 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 General Appearance: cooperative, comfortable, well kempt and well developed Orientation / Consciousness: awake, oriented to person, oriented to place and oriented to time HEENT normocephalic, head/scalp atraumatic and hearing grossly normal bilaterally Head and Scalp: normal to inspection, normocephalic and atraumatic Face and Sinus: normal facial exam External Ear: external ears normal Eyes PERRL and EOMs intact bilaterally General Eye: normal appearance of both eyes Resp normal respiratory effort, normal air movement, no retractions and no use of accessory muscles Effort and Inspection: able to speak in complete sentences and symmetric chest movement Extremity no calf tenderness General Extremity: Negative for clubbing or cyanosis Skin Wound Narrative: The swelling and edema in the patient's lower extremities is much improved, and now at a minimum. There are several large areas of sloughing epidermis, at the sites of previous ulcerations, suggesting that significant healing has occurred. Only one large, open ulceration remains, located on the right lateral calf, several centimeters superior to the right lateral malleolus. It is generally pink and healthy in appearance, with evidence of granulation tissue. There is no sign of infection or cellulitis. Dimensions are documented elsewhere. Several small excoriations are noted on the left lateral calf. Neuro oriented x3, CN's II-XII intact bilaterally, moves all extremities and no focal motor deficits Sensorium / Orientation: awake, alert, oriented to person, oriented to place and oriented to time Psych Appearance: grossly normal and appropriate Attitude: calm Activity / Motor Behavior: appropriate eye contact Speech: normal speech Mood & Affect: euthymic mood Thought Process: normal thought process Thought Content: normal thought content Attention / Concentration: attention grossly intact Debridement Note Debridement Note Wound debrided: Right lateral calf ulceration Laterality: Right Type of Debridement: Excisional debridement Anesthesia Used: 5% Lidocaine Gel Depth: Down to and including healthy tissue and in the subcutaneous layer Percentage of wound debrided: 100 Instrument Used: 5mm curette Tissue Removed: Bioburden and nonviable tissue, sloughing epidermis Severity: Fat Layer Exposed Amount of bleeding with debridement: Mild Bleeding Controlled with: Compression and gauze Patient tolerated procedure: Patient tolerated procedure well Post-Debridement Measurements and Additional Note: Post-Debridement Measurements/Treatment - Nurse 1 - General Ulcer Assessment Start: 10/05/23 08:27 Freq: Status: Active Protocol: .CEM Activity Type Activity Date Activity User E-sign Co-sign Detail Recorded Client Recorded Date Recorded By Document 10/05/23 08:28 Desktop 10/05/23 08:48 Document 10/12/23 08:04 Desktop 10/12/23 08:12 RB 10/05/23 10/12/23 08:28 08:04 - Today's Visit Information Type of service Follow-up Visit Follow-up Visit (Physician/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 (Physician/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 ) ) Arrival Mode Ambulatory Ambulatory Transfer Assistance None None Patient Identification Verified (Name & Yes Yes ) Patient Requires Transmission-Based No Precautions Height and Weight Body Mass Index (BMI) 51.7 51.7 BMI Classification Obese Obese Vital Signs Temperature (97.8 F-99.1 F) 97.5 F L 97.1 F L Temperature Source Temporal Temporal Pulse Rate (60-100) 69 61 Pulse Location Monitor Monitor Respiratory Rate (12-18) 18 Respiratory rate source Observation Oxygen Delivery Method Room Air Blood Pressure (90/60-120/80) 130/60 H 144/68 H Blood Pressure Mean 83 93 Source Monitor Monitor Position Sitting Semi-Fowlers Blood Pressure Location Right Arm Left Arm History Since Last Visit- (Skip if this is Patient's initial visit) Have you changed medications since your No No last visit? Any new allergies or adverse reactions No No Had a fall/change in ADL's that may No No increase risk of falls Signs or symptoms of abuse and/or No No neglect since last visit Have you been in the hospital since your Yes No last visit? Has dressing in place as prescribed Yes Yes Has compression in place as prescribed Yes Yes Has offloadiing in place as prescribed No No Experienced any changes in pain level or No No management Left Footwear Regular Shoe Right Footwear Regular Shoe Pain Scale: 0-10 Numeric Is Patient Pain Free? Yes Yes WC - Nurse 1 - General Ulcer Measurement Start: 10/05/23 08:27 Freq: Status: Active Protocol: Activity Type Activity Date Activity User E-sign Co-sign Detail Recorded Client Recorded Date Recorded By Document 10/05/23 08:28 GM Desktop 10/05/23 08:48 GM Document 10/12/23 08:04 RB Desktop 10/12/23 08:12 RB 10/05/23 10/12/23 08:28 08:04 Wound Center Nurse 1 6. RLE lateral -Combined with other wound No No -Current Size (cm) - Length 7.7 2.8 -Current Size (cm) - Width 9.0 2.5 -Current Size (cm) - Depth 0.2 0.1 -Total Square Cm 69.30 7.00 -Photo Taken No Yes -Epithelialization None Present -Tunneling No No -Undermining/Tunneling No No -Circular Undermining No No -Exudate Amt Large Large -Exudate Type Serosanguineous Serosanguineous -Wound Margin Distinct, Distinct, Outline Outline Attached Attached -Granulation Amt Medium (34-66%) Medium (34-66%) -Granulation Quality Ajo -Slough/Fibrin Yes -Necrosis Amt Large (67-100%) Medium (34-66%) -Necrotic Tissue Type Adherent Slough Adherent Slough -Structure Exposed N/A N/A -Texture (Earlene-wound Skin Appearance) Assessed Assessed, Friable -Moisture (Earlene-wound Skin Appearance) Assessed Assessed -Color (Earlene-wound Skin Appearance) Assessed Assessed, Hemosiderin Staining -Temperature (Earlene-wound Skin No Abnormality No Abnormality Appearance) (Pt Warm) (Pt Warm) -Tenderness on Palpation (Earlene-wound Yes No Skin Appearance) -Ulcer Cleansing Soap and Water Wound Cleanser -Foul Odor after Cleansing No No -Anesthetic Used Cetacaine 4% Lidocaine Solution 5. LLE anterior -Combined with other wound No No -Current Size (cm) - Length 1.7 0 -Current Size (cm) - Width 2.7 0 -Current Size (cm) - Depth 0.1 0 -Total Square Cm 4.59 0 -Photo Taken No Yes -Epithelialization Small 1-33% Large 67-100% -Tunneling No No -Undermining/Tunneling No No -Circular Undermining No No -Exudate Amt Medium -Exudate Type Serosanguineous -Wound Margin Flat & Intact -Granulation Amt Small (1-33%) -Slough/Fibrin Yes -Necrosis Amt Medium (34-66%) -Necrotic Tissue Type Adherent Slough -Structure Exposed N/A -Texture (Earlene-wound Skin Appearance) Assessed -Moisture (Earlene-wound Skin Appearance) Assessed -Color (Earlene-wound Skin Appearance) Assessed -Temperature (Earlene-wound Skin No Abnormality Appearance) (Pt Warm) -Tenderness on Palpation (Earlene-wound Yes Skin Appearance) -Ulcer Cleansing Soap and Water -Foul Odor after Cleansing No -Anesthetic Used Cetacaine 4. LLE post -Combined with other wound Yes No -Combined with (Name of Wound-Exactly posterior as it is documented) -Current Size (cm) - Length 4.0 1.5 -Current Size (cm) - Width 0.8 2.2 -Current Size (cm) - Depth 0.1 0.1 -Total Square Cm 3.20 3.30 -Photo Taken No Yes -Epithelialization Small 1-33% -Tunneling No No -Undermining/Tunneling No No -Circular Undermining No No -Exudate Amt Medium Medium -Exudate Type Serosanguineous Serosanguineous -Wound Margin Distinct, Distinct, Outline Outline Attached Attached -Granulation Amt Small (1-33%) Medium (34-66%) -Granulation Quality Ajo -Slough/Fibrin Yes -Necrosis Amt Small (1-33%) Medium (34-66%) -Necrotic Tissue Type Adherent Slough Adherent Slough -Structure Exposed N/A N/A -Texture (Earlene-wound Skin Appearance) Assessed Assessed -Moisture (Earlene-wound Skin Appearance) Assessed Assessed -Color (Earlene-wound Skin Appearance) Assessed Assessed -Temperature (Earlene-wound Skin No Abnormality No Abnormality Appearance) (Pt Warm) (Pt Warm) -Tenderness on Palpation (Earlene-wound Yes No Skin Appearance) -Ulcer Cleansing Soap and Water Wound Cleanser -Foul Odor after Cleansing No No -Anesthetic Used Cetacaine 4% Lidocaine Solution Lower Limb Edema Present Yes Right Calf (cm) 45.8 Point of measurement (cm from the medial 45.4 instep) Right Ankle (cm) 27.2 Point of Measurement (cm from the medial 27.0 instep) Left Calf (cm) 46.8 52 Left Ankle (cm) 27.0 26.8 WC - Nurse 2 - General Ulcer CM Notes Start: 10/05/23 08:27 Freq: Status: Active Protocol: Activity Type Activity Date Activity User E-sign Co-sign Detail Recorded Client Recorded Date Recorded By Document 10/05/23 13:31 PL [id number] 10/05/23 13:34 PL 10/05/23 13:31 Wound Center Nurse 2 7. RLE anterior -Procedure Performed No -Wound/Ulcer Outcome Healed- Epithelialized 6. RLE lateral -Time 08:58 -Correct Patient Yes -Correct Side, Site, Position Yes -Correct Procedure Yes -Procedure Performed Yes -Type of Procedure Debridement -Clinical Debridement Subcutaneous -Tissue Removed Subcutaneous -Post Debridement (cm) - Length 7.7 -Post Debridement (cm) - Width 9.0 -Post Debridement (cm) - Depth 0.2 -Total Square (Post) (cm) 69.30 -Area of Debridement (cm) - Length 7.7 -Area of Debridement (cm) - Width 9.0 -Total Square (Area) (cm) 69.30 -Tunneling No -Undermining/Tunneling No -Circular Undermining No -Wound/Ulcer Outcome Not Healed -Ulcer Cleansing Rinsed/ Irrigated with Saline -Foul Odor after Cleansing No -Bioengineered Tissue No -Bleeding Controlled with Pressure -Treatment Response Procedure Tolerated Well -Debridement - Subq, 1st 20sq cm No 5. LLE anterior -Time 08:58 -Correct Patient Yes -Correct Side, Site, Position Yes -Correct Procedure Yes -Procedure Performed Yes -Type of Procedure Debridement -Clinical Debridement Subcutaneous -Tissue Removed Subcutaneous -Post Debridement (cm) - Length 1.7 -Post Debridement (cm) - Width 2.7 -Post Debridement (cm) - Depth 0.1 -Total Square (Post) (cm) 4.59 -Area of Debridement (cm) - Length 1.7 -Area of Debridement (cm) - Width 2.7 -Total Square (Area) (cm) 4.59 -Tunneling No -Undermining/Tunneling No -Circular Undermining No -Wound/Ulcer Outcome Not Healed -Ulcer Cleansing Rinsed/ Irrigated with Saline -Foul Odor after Cleansing No -Bioengineered Tissue No -Bleeding Controlled with Pressure -Treatment Response Procedure Tolerated Well -Debridement - Subq, 1st 20sq cm No 4. LLE post -Time 08:58 -Correct Patient Yes -Correct Side, Site, Position Yes -Correct Procedure Yes -Procedure Performed Yes -Type of Procedure Debridement -Clinical Debridement Subcutaneous -Tissue Removed Subcutaneous -Post Debridement (cm) - Length 4.0 -Post Debridement (cm) - Width 0.8 -Post Debridement (cm) - Depth 0.1 -Total Square (Post) (cm) 3.20 -Area of Debridement (cm) - Length 4.0 -Area of Debridement (cm) - Width 0.8 -Total Square (Area) (cm) 3.20 -Tunneling No -Undermining/Tunneling No -Circular Undermining No -Wound/Ulcer Outcome Not Healed -Ulcer Cleansing Rinsed/ Irrigated with Saline -Foul Odor after Cleansing No -Bioengineered Tissue No -Bleeding Controlled with Pressure -Treatment Response Procedure Tolerated Well -Debridement - Subq, 1st 20sq cm Yes -Debridement, SubQ, ea addt'l 20sq cm 3 or part thereof Pain Scale: 0-10 Numeric Is Patient Pain Free? Yes WC - Nurse 3 - General Ulcer D/C NN Start: 10/05/23 08:27 Freq: Status: Active Protocol: Activity Type Activity Date Activity User E-sign Co-sign Detail Recorded Client Recorded Date Recorded By Document 10/05/23 09:13 GM Desktop 10/05/23 09:26 GM Document 10/12/23 08:42 RB Desktop 10/12/23 08:44 RB 10/05/23 10/12/23 09:13 08:42 Wound Care Center Nurse 3 6. RLE lateral -Ulcer Cleansing Not Cleansed Wound Cleanser -Foul Odor after Cleansing No -Negative Pressure Wound Therapy N/A -Primary Dressing Applied Aquacel AG 4x4 Aquacel AG 4x4 -Primary Dressing Covered/Secured with Dry Gauze & Dry Gauze,Dry Roll Gauze, Gauze & Roll Secured with Gauze,Secured Tape with Tape -Aquacel AG 4x4 1 1 5. LLE anterior -Ulcer Cleansing Not Cleansed Wound Cleanser -Foul Odor after Cleansing No -Negative Pressure Wound Therapy N/A -Other Dressing aquacel AG -Primary Dressing Covered/Secured with Dry Gauze & Dry Gauze & Roll Gauze Roll Gauze, Secured with Tape 4. LLE post -Ulcer Cleansing Not Cleansed Wound Cleanser -Foul Odor after Cleansing No -Negative Pressure Wound Therapy N/A -Other Dressing aquacel AG -Primary Dressing Covered/Secured with Dry Gauze & Roll Gauze, Secured with Tape Right -Lotion applied to leg before Yes compression wrap -Tubular Bandage Double Layer Double Layer -Size of Tubigrip Used Size E Size E -Size E ($) 2 2 Left -Lotion applied to leg before Yes compression wrap -Tubular Bandage Double Layer Double Layer -Size of Tubigrip Used Size E Size E -Size E ($) 2 2 Treatment Response Procedure Tolerated Well Pain Scale: 0-10 Numeric Is Patient Pain Free? Yes Yes Teaching: Wound Center Control Swelling with Leg Elevation -Person Taught Patient -Teaching Method Discussion -Response to teaching Verbalize understanding Compression Wraps & Stockings -Person Taught Patient -Teaching Method Discussion -Response to teaching Verbalize understanding WC - Visit Discharge Discharge Condition Stable Stable Ambulatory Status Ambulatory Ambulatory Transportation Private Auto Private Auto Medication Reconcilliation completed & Yes No provided to patient/care provider Clinical Summary of Care Provided Yes Yes Assessment/Plan Assessment/Plan (1) Venous ulcer of right leg: CODE(S): I83.019 - Varicose veins of right lower extremity with ulcer of unspecified site; L97.919 - Non-pressure chronic ulcer of unspecified part of right lower leg with unspecified severity (2) Chronic venous hypertension w/ulcer and inflammation involv right side: CODE(S): I87.331 - Chronic venous hypertension (idiopathic) with ulcer and inflammation of right lower extremity (3) Venous ulcer of left leg: CODE(S): I83.029 - Varicose veins of left lower extremity with ulcer of unspecified site; L97.929 - Non-pressure chronic ulcer of unspecified part of left lower leg with unspecified severity (4) Chronic venous hypertension w/ulcer and inflammation involv left side: CODE(S): I87.332 - Chronic venous hypertension (idiopathic) with ulcer and inflammation of left lower extremity (5) Chronic venous hypertension with inflammation involving left side: CODE(S): I87.322 - Chronic venous hypertension (idiopathic) with inflammation of left lower extremity (6) Venous stasis dermatitis of left lower extremity: CODE(S): I87.2 - Venous insufficiency (chronic) (peripheral) (7) Venous hypertension, chronic, with ulcer and inflammation: CODE(S): I87.339 - Chronic venous hypertension (idiopathic) with ulcer and inflammation of unspecified lower extremity; L97.909 - Non-pressure chronic ulcer of unspecified part of unspecified lower leg with unspecified severity QUALIFIERS: Laterality: right Qualified Code(s): I87.331 - Chronic venous hypertension (idiopathic) with ulcer and inflammation of right lower extremity; L97.919 - Non-pressure chronic ulcer of unspecified part of right lower leg with unspecified severity (8) Leg swelling: CODE(S): M79.89 - Other specified soft tissue disorders (9) Leg pain: CODE(S): M79.606 - Pain in leg, unspecified QUALIFIERS: Laterality: bilateral Qualified Code(s): M79.604 - Pain in right leg; M79.605 - Pain in left leg (10) Hyperlipidemia: CODE(S): E78.5 - Hyperlipidemia, unspecified (11) Hypertension: CODE(S): I10 - Essential (primary) hypertension (12) Lipodermatosclerosis: CODE(S): I83.10 - Varicose veins of unspecified lower extremity with inflammation QUALIFIERS: Laterality: bilateral Qualified Code(s): I83.11 - Varicose veins of right lower extremity with inflammation; I83.12 - Varicose veins of left lower extremity with inflammation (13) Hyperpigmentation: CODE(S): L81.9 - Disorder of pigmentation, unspecified (14) Morbid obesity: CODE(S): E66.01 - Morbid (severe) obesity due to excess calories (15) H/O umbilical hernia repair: CODE(S): Z98.890 - Other specified postprocedural states; Z87.19 - Personal history of other diseases of the digestive system (16) Chronic venous insufficiency: CODE(S): I87.2 - Venous insufficiency (chronic) (peripheral) PLAN: Plan This is a 53-year-old male with a longstanding history of chronic venous insufficiency, venous hypertension with inflammation and ulceration, and prior episodes of venous stasis ulcerations. He also experiences chronic swelling and edema in his lower extremities. 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 The patient's occupation prevents him from elevating his lower extremities as recommended. The nature of his occupation requires long periods of idle sitting. A lengthy discussion has been undertaken as to the appropriate conservative treatment measures relative to the patient's presenting symptoms and manifestations. The patient has been treated for numerous weeks relative to the swelling, edema, and ulcerations in his lower extremities. However, the degree of swelling and edema, and the expanding ulcerations in the patient's lower extremities, associated with the development of cellulitis, prompted the patient to be referred to the emergency department for inpatient admission. The patient was admitted to [facility] on September 21, where an inpatient stay transpired for 4 days. During that period of time, the patient was treated with intravenous antibiotics which included Augmentin and Levaquin. The patient was subsequently discharged on oral Augmentin and Cipro, the course of which has now been completed. At the time of the patient's presentation today, following his recent hospitalization, there has been significant improvement in the status of his lower extremity swelling and edema, with extensive healing of his lower extremity ulcerations. Only one large ulceration remains, located on the right lateral calf. It has been recommended that the patient take another week off from work, and remain at home with his legs elevated. 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 As result, the patient has experienced significant improvement in the last several weeks. We are to continue with conservative treatment measures which include leg elevation, avoidance of idle sitting, activity as tolerated, and compression to the patient's lower extremities by means of CircAid's, which the patient has in his possession. Weight loss has also been recommended. We are to continue with the use of Aquacel Ag topically to the ulceration on the right lateral calf, which will be applied by the patient on a daily basis. The patient has been instructed in the appropriate means of application. Moisturizing skin lotion is to be applied topically to the intact skin in the gaiter areas bilaterally. The patient has requested that we assist him in obtaining a new pair of CircAid compression garments. We are to assist him in these efforts. The patient is to return in 1 week for reevaluation. Total time: 26 minutes
[2023-10-19 08:22] VITALS: BP 150/70; PULSE 60; TEMP 36; BMI 51.7
--- NOTE | 2023-10-19 08:47 | HP.PCM_ITS ---
History of Present Illness Date of Service: 10/19/23 Chief Complaint: Venous stasis dermatitis with swelling and edema bilaterally; venous stasis ulcerations of the lower extremities History of Wound: This is a 53-year-old male with a longstanding history of chronic venous disease. He has previously been treated at this facility for venous stasis ulcerations of both lower extremities. He was most recently treated only several months ago. He presented at this time with bilateral lower extremity swelling and edema, with venous ulcerations in the left lower extremity. Upon his prior discharge, the patient had been instructed in the use of his Velcro compression garments. He had been advised to elevate his lower extremities as much as possible, to heart level, or higher. Efforts have been made to obtain pneumatic mechanical compression pumps, but the patient's insurance did not allow for this benefit. The patient has had chronic venous stasis dermatitis in his lower extremities for several years. 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 His profession requires him to sit for prolonged periods. The patient is morbidly obese. He denies a history of deep vein thrombosis in the past. He claims to sleep on a flat mattress at night. [facility] Medical History Chronic venous hypertension w/ulcer and inflammation involv left side Chronic venous hypertension w/ulcer and inflammation involv right side Chronic venous hypertension with inflammation involving left side Chronic venous insufficiency CPAP (continuous positive airway pressure) dependence GERD (gastroesophageal reflux disease) Hyperlipidemia Hyperpigmentation Hypertension Leg pain Leg swelling Lipodermatosclerosis Morbid obesity Non-smoker Sleep apnea Venous hypertension, chronic, with inflammation Venous hypertension, chronic, with ulcer and inflammation Venous stasis dermatitis of left lower extremity Venous stasis ulcer Venous ulcer of left leg Venous ulcer of right leg Home Medications furosemide 40 mg tablet 40 mg PO BID 06/24/21 [History Last Taken 09/20/23] lansoprazole 30 mg capsule,delayed release 30 mg PO DAILY 06/24/21 [History Last Taken 09/20/23] losartan 100 mg tablet 100 mg PO DAILY 06/24/21 [History Last Taken 09/20/23] pravastatin 10 mg tablet 10 mg PO DAILY 06/24/21 [History Last Taken 09/20/23] amoxicillin 875 mg-potassium clavulanate 125 mg tablet 1 tab PO BID #8 tabs 09/25/23 [Rx Last Taken Unknown] levofloxacin 750 mg tablet 750 mg PO DAILY #4 tabs 09/25/23 [Rx Last Taken Unk nown] Allergy/AdvReac Type Severity Reaction Status Date / Time No Known Allergies Allergy Verified 09/21/23 09:25 Surgical History H/O umbilical hernia repair Social History 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 General Appearance: cooperative, comfortable, well kempt and well developed Orientation / Consciousness: awake, oriented to person, oriented to place and oriented to time HEENT normocephalic, head/scalp atraumatic and hearing grossly normal bilaterally Head and Scalp: normal to inspection, normocephalic and atraumatic Face and Sinus: normal facial exam External Ear: external ears normal Eyes PERRL and EOMs intact bilaterally General Eye: normal appearance of both eyes Resp normal respiratory effort, normal air movement, no retractions and no use of accessory muscles Effort and Inspection: able to speak in complete sentences and symmetric chest movement Extremity no calf tenderness General Extremity: Negative for clubbing or cyanosis Skin Wound Narrative: The swelling and edema in the patient's lower extremities is much improved, and remains at a minimum. There are several large areas of sloughing epidermis, at the sites of previous ulcerations, suggesting that significant healing has occurred. Significant healing has occurred at the site of the large right lateral calf ulceration. It now consists of a clustered ulceration. There is a moderate amount of bioburden, though the base of the ulceration is generally pink and healthy in appearance. There is no sign of infection or cellulitis. There is also a small ulceration on the left posterior calf, with a moderate amount of bioburden. There is no sign of infection or cellulitis at the site. Dimensions of the ulceration are documented elsewhere. Lipodermatosclerosis and hyperpigmentation is noted in the gaiter areas bilaterally. Neuro oriented x3, CN's II-XII intact bilaterally, moves all extremities and no focal motor deficits Sensorium / Orientation: awake, alert, oriented to person, oriented to place and oriented to time Psych Appearance: grossly normal and appropriate Attitude: calm Activity / Motor Behavior: appropriate eye contact Speech: normal speech Mood & Affect: euthymic mood Thought Process: normal thought process Thought Content: normal thought content Attention / Concentration: attention grossly intact Debridement Note Debridement Note Wound debrided: Right lateral calf ulceration Laterality: Right Type of Debridement: Excisional debridement Anesthesia Used: 5% Lidocaine Gel and Cetacaine Depth: Down to and including healthy tissue and in the subcutaneous layer Percentage of wound debrided: 100 Instrument Used: 5mm curette Tissue Removed: Bioburden and nonviable tissue, sloughing epidermis Severity: Fat Layer Exposed Amount of bleeding with debridement: Mild Bleeding Controlled with: Compression and gauze Patient tolerated procedure: Patient tolerated procedure well Post-Debridement Measurements and Additional Note: Post-Debridement Measurements/Treatment - Nurse 1 - General Ulcer Assessment Start: 10/05/23 08:27 Freq: Status: Active Protocol: JUSTINE Activity Type Activity Date Activity User E-sign Co-sign Detail Recorded Client Recorded Date Recorded By Document 10/05/23 08:28 Desktop 10/05/23 08:48 Document 10/12/23 08:04 Desktop 10/12/23 08:12 Document 10/19/23 08:22 Desktop 10/19/23 08:33 10/05/23 10/12/23 10/19/23 08:28 08:04 08:22 - Today's Visit Information Type of service Follow-up Visit Follow-up Visit Follow-up Visit (Physician/PAYROLL SUPERVISOR (Physician/PAYROLL SUPERVISOR (Physician/PAYROLL SUPERVISOR ) ) ) Arrival Mode Ambulatory Ambulatory Ambulatory Transfer Assistance None None None Patient Identification Verified (Name & Yes Yes Yes ) Patient Requires Transmission-Based No No Precautions Height and Weight Body Mass Index (BMI) 51.7 51.7 51.7 BMI Classification Obese Obese Obese Vital Signs Temperature (97.8 F-99.1 F) 97.5 F L 97.1 F L 96.8 F L Temperature Source Temporal Temporal Temporal Pulse Rate (60-100) 69 61 60 Pulse Location Monitor Monitor Monitor Respiratory Rate (12-18) 18 Respiratory rate source Observation Oxygen Delivery Method Room Air Room Air Blood Pressure (90/60-120/80) 130/60 H 144/68 H 150/70 H Blood Pressure Mean 83 93 96 Source Monitor Monitor Monitor Position Sitting Semi-Fowlers Sitting Blood Pressure Location Right Arm Left Arm Right Arm History Since Last Visit- (Skip if this is Patient's initial visit) Have you changed medications since your No No No last visit? Any new allergies or adverse reactions No No No Had a fall/change in ADL's that may No No No increase risk of falls Signs or symptoms of abuse and/or No No No neglect since last visit Have you been in the hospital since your Yes No No last visit? Has dressing in place as prescribed Yes Yes Yes Has compression in place as prescribed Yes Yes Yes Has offloadiing in place as prescribed No No No Experienced any changes in pain level or No No No management Left Footwear Regular Shoe Regular Shoe Right Footwear Regular Shoe Regular Shoe Pain Scale: 0-10 Numeric Is Patient Pain Free? Yes Yes Yes WC - Nurse 1 - General Ulcer Measurement Start: 10/05/23 08:27 Freq: Status: Active Protocol: Activity Type Activity Date Activity User E-sign Co-sign Detail Recorded Client Recorded Date Recorded By Document 10/05/23 08:28 HeTextedktop 10/05/23 08:48 Document 10/12/23 08:04 Desktop 10/12/23 08:12 Document 10/19/23 08:22 Desktop 10/19/23 08:33 10/05/23 10/12/23 10/19/23 08:28 08:04 08:22 Wound Center Nurse 1 5. LLE anterior -Combined with other wound No No -Current Size (cm) - Length 1.7 0 -Current Size (cm) - Width 2.7 0 -Current Size (cm) - Depth 0.1 0 -Total Square Cm 4.59 0 -Photo Taken No Yes -Epithelialization Small 1-33% Large 67-100% -Tunneling No No -Undermining/Tunneling No No -Circular Undermining No No -Exudate Amt Medium -Exudate Type Serosanguineous -Wound Margin Flat & Intact -Granulation Amt Small (1-33%) -Slough/Fibrin Yes -Necrosis Amt Medium (34-66%) -Necrotic Tissue Type Adherent Slough -Structure Exposed N/A -Texture (Earlene-wound Skin Appearance) Assessed -Moisture (Earlene-wound Skin Appearance) Assessed -Color (Earlene-wound Skin Appearance) Assessed -Temperature (Earlene-wound Skin No Abnormality Appearance) (Pt Warm) -Tenderness on Palpation (Earlene-wound Yes Skin Appearance) -Ulcer Cleansing Soap and Water -Foul Odor after Cleansing No -Anesthetic Used Cetacaine 6. RLE lateral -Combined with other wound No No No -Current Size (cm) - Length 7.7 2.8 14.5 -Current Size (cm) - Width 9.0 2.5 9.2 -Current Size (cm) - Depth 0.2 0.1 0.1 -Total Square Cm 69.30 7.00 133.40 -Date of Last Picture (Recall this 10/19/23 field) -Photo Taken No Yes Yes -Epithelialization None Present Medium 34-66% -Tunneling No No No -Undermining/Tunneling No No No -Circular Undermining No No No -Exudate Amt Large Large Large -Exudate Type Serosanguineous Serosanguineous Yellow/Green -Wound Margin Distinct, Distinct, Distinct, Outline Outline Outline Attached Attached Attached -Granulation Amt Medium (34-66%) Medium (34-66%) Medium (34-66%) -Granulation Quality Mears Red -Slough/Fibrin Yes -Necrosis Amt Large (67-100%) Medium (34-66%) Medium (34-66%) -Necrotic Tissue Type Adherent Slough Adherent Slough Adherent Slough -Structure Exposed N/A N/A N/A -Texture (Earlene-wound Skin Appearance) Assessed Assessed, Assessed Friable -Moisture (Earlene-wound Skin Appearance) Assessed Assessed Assessed -Color (Earlene-wound Skin Appearance) Assessed Assessed, Assessed Hemosiderin Staining -Temperature (Earlene-wound Skin No Abnormality No Abnormality No Abnormality Appearance) (Pt Warm) (Pt Warm) (Pt Warm) -Tenderness on Palpation (Earlene-wound Yes No Yes Skin Appearance) -Ulcer Cleansing Soap and Water Wound Cleanser Soap and Water -Foul Odor after Cleansing No No No -Anesthetic Used Cetacaine 4% Lidocaine 4% Lidocaine Solution Solution 4. LLE post -Combined with other wound Yes No -Combined with (Name of Wound-Exactly posterior as it is documented) -Current Size (cm) - Length 4.0 1.5 7.5 -Current Size (cm) - Width 0.8 2.2 3.5 -Current Size (cm) - Depth 0.1 0.1 0.1 -Total Square Cm 3.20 3.30 26.25 -Date of Last Picture (Recall this 10/19/23 field) -Photo Taken No Yes Yes -Epithelialization Small 1-33% -Tunneling No No No -Undermining/Tunneling No No No -Circular Undermining No No No -Change in Wound Grade/Stage No -Exudate Amt Medium Medium -Exudate Type Serosanguineous Serosanguineous -Wound Margin Distinct, Distinct, Distinct, Outline Outline Outline Attached Attached Attached -Granulation Amt Small (1-33%) Medium (34-66%) Medium (34-66%) -Granulation Quality Mears -Slough/Fibrin Yes Yes -Necrosis Amt Small (1-33%) Medium (34-66%) Medium (34-66%) -Necrotic Tissue Type Adherent Slough Adherent Slough Adherent Slough -Structure Exposed N/A N/A N/A -Texture (Earlene-wound Skin Appearance) Assessed Assessed Assessed -Moisture (Earlene-wound Skin Appearance) Assessed Assessed Assessed -Color (Earlene-wound Skin Appearance) Assessed Assessed Assessed -Temperature (Earlene-wound Skin No Abnormality No Abnormality No Abnormality Appearance) (Pt Warm) (Pt Warm) (Pt Warm) -Tenderness on Palpation (Earlene-wound Yes No Yes Skin Appearance) -Ulcer Cleansing Soap and Water Wound Cleanser Soap and Water -Foul Odor after Cleansing No No No -Anesthetic Used Cetacaine 4% Lidocaine 4% Lidocaine Solution Solution Lower Limb Edema Present Yes Right Calf (cm) 45.8 48.2 Point of measurement (cm from the medial 45.4 instep) Right Ankle (cm) 27.2 28 Point of Measurement (cm from the medial 27.0 instep) Left Calf (cm) 46.8 52 49 Left Ankle (cm) 27.0 26.8 27.8 WC - Nurse 2 - General Ulcer CM Notes Start: 10/05/23 08:27 Freq: Status: Active Protocol: Activity Type Activity Date Activity User E-sign Co-sign Detail Recorded Client Recorded Date Recorded By Document 10/05/23 13:31 PL [id number] 10/05/23 13:34 PL Document 10/12/23 11:52 PL [id number] 10/12/23 11:54 PL 10/05/23 10/12/23 13:31 11:52 Wound Center Nurse 2 7. RLE anterior -Procedure Performed No -Wound/Ulcer Outcome Healed- Epithelialized 5. LLE anterior -Time 08:58 -Correct Patient Yes -Correct Side, Site, Position Yes -Correct Procedure Yes -Procedure Performed Yes No -Type of Procedure Debridement -Clinical Debridement Subcutaneous -Tissue Removed Subcutaneous -Post Debridement (cm) - Length 1.7 -Post Debridement (cm) - Width 2.7 -Post Debridement (cm) - Depth 0.1 -Total Square (Post) (cm) 4.59 -Area of Debridement (cm) - Length 1.7 -Area of Debridement (cm) - Width 2.7 -Total Square (Area) (cm) 4.59 -Tunneling No -Undermining/Tunneling No -Circular Undermining No -Wound/Ulcer Outcome Not Healed Healed- Epithelialized -Ulcer Cleansing Rinsed/ Irrigated with Saline -Foul Odor after Cleansing No -Bioengineered Tissue No -Bleeding Controlled with Pressure -Treatment Response Procedure Tolerated Well -Debridement - Subq, 1st 20sq cm No 6. RLE lateral -Time 08:58 08:30 -Correct Patient Yes Yes -Correct Side, Site, Position Yes Yes -Correct Procedure Yes Yes -Procedure Performed Yes Yes -Type of Procedure Debridement Debridement -Clinical Debridement Subcutaneous Subcutaneous -Tissue Removed Subcutaneous Subcutaneous -Post Debridement (cm) - Length 7.7 2.8 -Post Debridement (cm) - Width 9.0 2.5 -Post Debridement (cm) - Depth 0.2 0.1 -Total Square (Post) (cm) 69.30 7.00 -Area of Debridement (cm) - Length 7.7 2.8 -Area of Debridement (cm) - Width 9.0 2.5 -Total Square (Area) (cm) 69.30 7.00 -Tunneling No No -Undermining/Tunneling No No -Circular Undermining No No -Wound/Ulcer Outcome Not Healed Not Healed -Ulcer Cleansing Rinsed/ Rinsed/ Irrigated with Irrigated with Saline Saline -Foul Odor after Cleansing No No -Bioengineered Tissue No No -Bleeding Controlled with Pressure Pressure -Treatment Response Procedure Procedure Tolerated Well Tolerated Well -Debridement - Subq, 1st 20sq cm No No 4. LLE post -Time 08:58 08:30 -Correct Patient Yes Yes -Correct Side, Site, Position Yes Yes -Correct Procedure Yes Yes -Procedure Performed Yes Yes -Type of Procedure Debridement Debridement -Clinical Debridement Subcutaneous Subcutaneous -Tissue Removed Subcutaneous Subcutaneous -Post Debridement (cm) - Length 4.0 1.5 -Post Debridement (cm) - Width 0.8 2.2 -Post Debridement (cm) - Depth 0.1 0.1 -Total Square (Post) (cm) 3.20 3.30 -Area of Debridement (cm) - Length 4.0 1.5 -Area of Debridement (cm) - Width 0.8 2.2 -Total Square (Area) (cm) 3.20 3.30 -Tunneling No No -Undermining/Tunneling No No -Circular Undermining No No -Wound/Ulcer Outcome Not Healed Not Healed -Ulcer Cleansing Rinsed/ Rinsed/ Irrigated with Irrigated with Saline Saline -Foul Odor after Cleansing No No -Bioengineered Tissue No No -Bleeding Controlled with Pressure Pressure -Treatment Response Procedure Procedure Tolerated Well Tolerated Well -Debridement - Subq, 1st 20sq cm Yes Yes -Debridement, SubQ, ea addt'l 20sq cm 3 or part thereof Pain Scale: 0-10 Numeric Is Patient Pain Free? Yes Yes - Nurse 3 - General Ulcer D/C NN Start: 10/05/23 08:27 Freq: Status: Active Protocol: Activity Type Activity Date Activity User E-sign Co-sign Detail Recorded Client Recorded Date Recorded By Document 10/05/23 09:13 GM Desktop 10/05/23 09:26 GM Document 10/12/23 08:42 RB Desktop 10/12/23 08:44 RB 10/05/23 10/12/23 09:13 08:42 Wound Care Center Nurse 3 5. LLE anterior -Ulcer Cleansing Not Cleansed Wound Cleanser -Foul Odor after Cleansing No -Negative Pressure Wound Therapy N/A -Other Dressing aquacel AG -Primary Dressing Covered/Secured with Dry Gauze & Dry Gauze & Roll Gauze Roll Gauze, Secured with Tape 6. RLE lateral -Ulcer Cleansing Not Cleansed Wound Cleanser -Foul Odor after Cleansing No -Negative Pressure Wound Therapy N/A -Primary Dressing Applied Aquacel AG 4x4 Aquacel AG 4x4 -Primary Dressing Covered/Secured with Dry Gauze & Dry Gauze,Dry Roll Gauze, Gauze & Roll Secured with Gauze,Secured Tape with Tape -Aquacel AG 4x4 1 1 4. LLE post -Ulcer Cleansing Not Cleansed Wound Cleanser -Foul Odor after Cleansing No -Negative Pressure Wound Therapy N/A -Other Dressing aquacel AG -Primary Dressing Covered/Secured with Dry Gauze & Roll Gauze, Secured with Tape Right -Lotion applied to leg before Yes compression wrap -Tubular Bandage Double Layer Double Layer -Size of Tubigrip Used Size E Size E -Size E ($) 2 2 Left -Lotion applied to leg before Yes compression wrap -Tubular Bandage Double Layer Double Layer -Size of Tubigrip Used Size E Size E -Size E ($) 2 2 Treatment Response Procedure Tolerated Well Pain Scale: 0-10 Numeric Is Patient Pain Free? Yes Yes Teaching: Wound Center Control Swelling with Leg Elevation -Person Taught Patient -Teaching Method Discussion -Response to teaching Verbalize understanding Compression Wraps & Stockings -Person Taught Patient -Teaching Method Discussion -Response to teaching Verbalize understanding WC - Visit Discharge Discharge Condition Stable Stable Ambulatory Status Ambulatory Ambulatory Transportation Private Auto Private Auto Medication Reconcilliation completed & Yes No provided to patient/care provider Clinical Summary of Care Provided Yes Yes Additional Wound Wound debrided: Left posterior calf ulceration Laterality: Left Type of Debridement: Excisional debridement Anesthesia Used: 5% Lidocaine Gel Depth: Down to and including healthy tissue and in the subcutaneous layer Percentage of wound debrided: 100 Instrument Used: 5mm curette Tissue Removed: Bioburden Severity: Fat Layer Exposed Amount of bleeding with debridement: Mild Bleeding Controlled with: Compression and gauze Patient tolerated procedure: Patient tolerated procedure well Assessment/Plan Assessment/Plan (1) Venous ulcer of right leg: CODE(S): I83.019 - Varicose veins of right lower extremity with ulcer of unspecified site; L97.919 - Non-pressure chronic ulcer of unspecified part of right lower leg with unspecified severity (2) Chronic venous hypertension w/ulcer and inflammation involv right side: CODE(S): I87.331 - Chronic venous hypertension (idiopathic) with ulcer and inflammation of right lower extremity (3) Venous ulcer of left leg: CODE(S): I83.029 - Varicose veins of left lower extremity with ulcer of unspecified site; L97.929 - Non-pressure chronic ulcer of unspecified part of left lower leg with unspecified severity (4) Chronic venous hypertension w/ulcer and inflammation involv left side: CODE(S): I87.332 - Chronic venous hypertension (idiopathic) with ulcer and inflammation of left lower extremity (5) Chronic venous hypertension with inflammation involving left side: CODE(S): I87.322 - Chronic venous hypertension (idiopathic) with inflammation of left lower extremity (6) Venous stasis dermatitis of left lower extremity: CODE(S): I87.2 - Venous insufficiency (chronic) (peripheral) (7) Venous hypertension, chronic, with ulcer and inflammation: CODE(S): I87.339 - Chronic venous hypertension (idiopathic) with ulcer and inflammation of unspecified lower extremity; L97.909 - Non-pressure chronic ulcer of unspecified part of unspecified lower leg with unspecified severity QUALIFIERS: Laterality: right Qualified Code(s): I87.331 - Chronic venous hypertension (idiopathic) with ulcer and inflammation of right lower extremity; L97.919 - Non-pressure chronic ulcer of unspecified part of right lower leg with unspecified severity (8) Leg swelling: CODE(S): M79.89 - Other specified soft tissue disorders (9) Leg pain: CODE(S): M79.606 - Pain in leg, unspecified QUALIFIERS: Laterality: bilateral Qualified Code(s): M79.604 - Pain in right leg; M79.605 - Pain in left leg (10) Hyperlipidemia: CODE(S): E78.5 - Hyperlipidemia, unspecified (11) Hypertension: CODE(S): I10 - Essential (primary) hypertension (12) Lipodermatosclerosis: CODE(S): I83.10 - Varicose veins of unspecified lower extremity with inflammation (13) Hyperpigmentation: CODE(S): L81.9 - Disorder of pigmentation, unspecified (14) Morbid obesity: CODE(S): E66.01 - Morbid (severe) obesity due to excess calories (15) H/O umbilical hernia repair: CODE(S): Z98.890 - Other specified postprocedural states; Z87.19 - Personal history of other diseases of the digestive system (16) Chronic venous insufficiency: CODE(S): I87.2 - Venous insufficiency (chronic) (peripheral) PLAN: Plan This is a 53-year-old male with a longstanding history of chronic venous insufficiency, venous hypertension with inflammation and ulceration, and prior e pisodes of venous stasis ulcerations. He also experiences chronic swelling and edema in his lower extremities. 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 The patient's occupation prevents him from elevating his lower extremities as recommended. The nature of his occupation requires long periods of idle sitting. A lengthy discussion has been undertaken as to the appropriate conservative treatment measures relative to the patient's presenting symptoms and manifestations. The patient has been treated for numerous weeks relative to the swelling, edema, and ulcerations in his lower extremities. However, the degree of swelling and edema, and the expanding ulcerations in the patient's lower extremities, associated with the development of cellulitis, prompted the patient to be referred to the emergency department for inpatient admission. The patient was [facility] During that period of time, the patient was treated with intravenous antibiotics which included Augmentin and Levaquin. The patient was subsequently discharged on oral Augmentin and Cipro, the course of which has now been completed. There continues to be significant improvement in the status of the patient's lower swelling, edema, and ulcerations. The swellin g and edema in the lower extremities is minimized, and healing of the patient's ulcerations has been progressive in recent weeks. 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 We are to continue with conservative treatment measures which include leg elevation, avoidance of idle sitting, activity as tolerated, and compression to the patient's lower extremities by means of CircAid's. The patient has received new CircAid garments, and is to be instructed on the appropriate means of application. These are to be worn on a daily basis. Weight loss has also been recommended. We are to continue with the use of Aquacel Ag topically to the ulcerations bilaterally. Aquacel Ag is to be applied on a daily basis. The patient has been instructed in appropriate means of application. Moisturizing skin lotion is to be applied topically to the intact skin in the gaiter areas bilaterally. We are in [email or web address] process of attempting to procure pneumatic mechanical compression pumps for the patient's use. The patient is to return in 1 week for reevaluation. Total time: 28 minutes
[2023-10-26 08:09] VITALS: BP 163/78; PULSE 56; RESP 18; TEMP 36.1; BMI 51.7
--- NOTE | 2023-10-26 08:29 | PCM.WC.HP ---
History of Present Illness Date of Service: 10/26/23 Chief Complaint: Venous stasis dermatitis with swelling and edema bilaterally; venous stasis ulcerations of the lower extremities History of Wound: This is a 53-year-old male with a longstanding history of chronic venous disease. He has previously been treated at this facility for venous stasis ulcerations of both lower extremities. He was most recently treated only several months ago. He presented at this time with bilateral lower extremity swelling and edema, with venous ulcerations in the left lower extremity. Upon his prior discharge, the patient had been instructed in the use of his Velcro compression garments. He had been advised to elevate his lower extremities as much as possible, to heart level, or higher. Efforts have been made to obtain pneumatic mechanical compression pumps, but the patient's insurance did not allow for this benefit. The patient has had chronic venous stasis dermatitis in his lower extremities for several years. 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 His profession requires him to sit for prolonged periods. The patient is morbidly obese. He denies a history of deep vein thrombosis in the past. He claims to sleep on a flat mattress at night. [facility] Medical History Chronic venous hypertension w/ulcer and inflammation involv left side Chronic venous hypertension w/ulcer and inflammation involv right side Chronic venous hypertension with inflammation involving left side Chronic venous insufficiency CPAP (continuous positive airway pressure) dependence GERD (gastroesophageal reflux disease) Hyperlipidemia Hyperpigmentation Hypertension Leg pain Leg swelling Lipodermatosclerosis Morbid obesity Non-smoker Sleep apnea Venous hypertension, chronic, with inflammation Venous hypertension, chronic, with ulcer and inflammation Venous stasis dermatitis of left lower extremity Venous stasis ulcer Venous ulcer of left leg Venous ulcer of right leg Home Medications furosemide 40 mg tablet 40 mg PO BID 06/24/21 [History Last Taken 09/20/23] lansoprazole 30 mg capsule,delayed release 30 mg PO DAILY 06/24/21 [History Last Taken 09/20/23] losartan 100 mg tablet 100 mg PO DAILY 06/24/21 [History Last Taken 09/20/23] pravastatin 10 mg tablet 10 mg PO DAILY 06/24/21 [History Last Taken 09/20/23] amoxicillin 875 mg-potassium clavulanate 125 mg tablet 1 tab PO BID #8 tabs 09/25/23 [Rx Last Taken Unknown] levofloxacin 750 mg tablet 750 mg PO DAILY #4 tabs 09/25/23 [Rx Last Taken Unknown] Allergy/AdvReac Type Severity Reaction Status Date / Time No Known Allergies Allergy Verified 09/21/23 09:25 Surgical History H/O umbilical hernia repair Social History 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 General Appearance: cooperative, comfortable, well kempt and well developed Orientation / Consciousness: awake, oriented to person, oriented to place and oriented to time HEENT normocephalic, head/scalp atraumatic and hearing grossly normal bilaterally Head and Scalp: normal to inspection, normocephalic and atraumatic Face and Sinus: normal facial exam External Ear: external ears normal Eyes PERRL and EOMs intact bilaterally General Eye: normal appearance of both eyes Resp normal respiratory effort, normal air movement, no retractions and no use of accessory muscles Effort and Inspection: able to speak in complete sentences and symmetric chest movement Extremity no calf tenderness General Extremity: Negative for clubbing or cyanosis Skin Wound Narrative: The swelling and edema in the patient's lower extremities is much improved, and remains at a minimum. Significant healing has occurred at the site of the large right lateral calf ulceration. It now consists of a clustered ulceration. There is a moderate amount of bioburden, though the base of the ulceration is generally pink and healthy in appearance. There is no sign of infection or cellulitis. There is also a small ulceration on the left posterior calf, with a small amount of bioburden. There is no sign of infection or cellulitis at the site. Dimensions of the ulcerations are documented elsewhere. Lipodermatosclerosis and hyperpigmentation are noted in the gaiter areas bilaterally. Neuro oriented x3, CN's II-XII intact bilaterally, moves all extremities and no focal motor deficits Sensorium / Orientation: awake, alert, oriented to person, oriented to place and oriented to time Psych Appearance: grossly normal and appropriate Attitude: calm Activity / Motor Behavior: appropriate eye contact Speech: normal speech Mood & Affect: euthymic mood Thought Process: normal thought process Thought Content: normal thought content Attention / Concentration: attention grossly intact Debridement Note Debridement Note Wound debrided: Right lateral calf ulceration Laterality: Right Type of Debridement: Excisional debridement Anesthesia Used: 5% Lidocaine Gel and Cetacaine Depth: Down to and including healthy tissue and in the subcutaneous layer Percentage of wound debrided: 100 Instrument Used: 5mm curette Tissue Removed: Bioburden and nonviable tissue, sloughing epidermis Severity: Fat Layer Exposed Amount of bleeding with debridement: Mild Bleeding Controlled with: Compression and gauze Patient tolerated procedure: Patient tolerated procedure well Post-Debridement Measurements and Additional Note: Post-Debridement Measurements/Treatment - Nurse 1 - General Ulcer Assessment Start: 10/05/23 08:27 Freq: Status: Active Protocol: JUSTINE Activity Type Activity Date Activity User E-sign Co-sign Detail Recorded Client Recorded Date Recorded By Document 10/05/23 08:28 Desktop 10/05/23 08:48 GM Document 10/12/23 08:04 RB Desktop 10/12/23 08:12 RB Document 10/19/23 08:22 Desktop 10/19/23 08:33 Document 10/26/23 08:09 PR Desktop 10/26/23 08:18 MT 10/05/23 10/12/23 10/19/23 08:28 08:04 08:22 - Today's Visit Information Type of service Follow-up Visit Follow-up Visit Follow-up Visit (Physician/DIRECTOR DECISION SUPPORT (Physician/DIRECTOR DECISION SUPPORT (Physician/DIRECTOR DECISION SUPPORT ) ) ) Arrival Mode Ambulatory Ambulatory Ambulatory Transfer Assistance None None None Accompanied by Patient Identification Verified (Name & Yes Yes Yes ) Patient Requires Transmission-Based No No Precautions Height and Weight Body Mass Index (BMI) 51.7 51.7 51.7 BMI Classification Obese Obese Obese Vital Signs Temperature (97.8 F-99.1 F) 97.5 F L 97.1 F L 96.8 F L Temperature Source Temporal Temporal Temporal Pulse Rate (60-100) 69 61 60 Pulse Location Monitor Monitor Monitor Respiratory Rate (12-18) 18 Respiratory rate source Observation Oxygen Delivery Method Room Air Room Air Blood Pressure (90/60-120/80) 130/60 H 144/68 H 150/70 H Blood Pressure Mean 83 93 96 Source Monitor Monitor Monitor Position Sitting Semi-Fowlers Sitting Blood Pressure Location Right Arm Left Arm Right Arm History Since Last Visit- (Skip if this is Patient's initial visit) Have you changed medications since your No No No last visit? Any new allergies or adverse reactions No No No Had a fall/change in ADL's that may No No No increase risk of falls Signs or symptoms of abuse and/or No No No neglect since last visit Have you been in the hospital since your Yes No No last visit? Has dressing in place as prescribed Yes Yes Yes Has compression in place as prescribed Yes Yes Yes Has offloadiing in place as prescribed No No No Experienced any changes in pain level or No No No management Left Footwear Regular Shoe Regular Shoe Right Footwear Regular Shoe Regular Shoe Pain Scale: 0-10 Numeric Is Patient Pain Free? Yes Yes Yes 10/26/23 08:09 WC - Today's Visit Information Type of service Follow-up Visit (Physician/DIRECTOR DECISION SUPPORT ) Arrival Mode Ambulatory Transfer Assistance Accompanied by self Patient Identification Verified (Name & Yes ) Patient Requires Transmission-Based Precautions Height and Weight Body Mass Index (BMI) 51.7 BMI Classification Obese Vital Signs Temperature (97.8 F-99.1 F) 97 F L Temperature Source Temporal Pulse Rate (60-100) 56 L Pulse Location Monitor Respiratory Rate (12-18) 18 Respiratory rate source Observation Oxygen Delivery Method Room Air Blood Pressure (90/60-120/80) 163/78 H Blood Pressure Mean 106 Source Monitor Position Sitting Blood Pressure Location Left Arm History Since Last Visit- (Skip if this is Patient's initial visit) Have you changed medications since your No last visit? Any new allergies or adverse reactions No Had a fall/change in ADL's that may increase risk of falls Signs or symptoms of abuse and/or neglect since last visit Have you been in the hospital since your last visit? Has dressing in place as prescribed Yes Has compression in place as prescribed Yes Has offloadiing in place as prescribed Yes Experienced any changes in pain level or No management Left Footwear Regular Shoe Right Footwear Regular Shoe Pain Scale: 0-10 Numeric Is Patient Pain Free? Yes WC - Nurse 1 - General Ulcer Measurement Start: 10/05/23 08:27 Freq: Status: Active Protocol: Activity Type Activity Date Activity User E-sign Co-sign Detail Recorded Client Recorded Date Recorded By Document 10/05/23 08:28 GM Desktop 10/05/23 08:48 GM Document 10/12/23 08:04 RB Desktop 10/12/23 08:12 RB Document 10/19/23 08:22 GM Desktop 10/19/23 08:33 GM Document 10/26/23 08:09 MT Desktop 10/26/23 08:18 MT 10/05/23 10/12/23 10/19/23 08:28 08:04 08:22 Wound Center Nurse 1 5. LLE anterior -Combined with other wound No No -Current Size (cm) - Length 1.7 0 -Current Size (cm) - Width 2.7 0 -Current Size (cm) - Depth 0.1 0 -Total Square Cm 4.59 0 -Photo Taken No Yes -Epithelialization Small 1-33% Large 67-100% -Tunneling No No -Undermining/Tunneling No No -Circular Undermining No No -Exudate Amt Medium -Exudate Type Serosanguineous -Wound Margin Flat & Intact -Granulation Amt Small (1-33%) -Slough/Fibrin Yes -Necrosis Amt Medium (34-66%) -Necrotic Tissue Type Adherent Slough -Structure Exposed N/A -Texture (Earlene-wound Skin Appearance) Assessed -Moisture (Earlene-wound Skin Appearance) Assessed -Color (Earlene-wound Skin Appearance) Assessed -Temperature (Earlene-wound Skin No Abnormality Appearance) (Pt Warm) -Tenderness on Palpation (Earlene-wound Yes Skin Appearance) -Ulcer Cleansing Soap and Water -Foul Odor after Cleansing No -Anesthetic Used Cetacaine 6. RLE lateral -Combined with other wound No No No -Current Size (cm) - Length 7.7 2.8 14.5 -Current Size (cm) - Width 9.0 2.5 9.2 -Current Size (cm) - Depth 0.2 0.1 0.1 -Total Square Cm 69.30 7.00 133.40 -Date of Last Picture (Recall this 10/19/23 field) -Photo Taken No Yes Yes -Epithelialization None Present Medium 34-66% -Tunneling No No No -Undermining/Tunneling No No No -Circular Undermining No No No -Exudate Amt Large Large Large -Exudate Type Serosanguineous Serosanguineous Yellow/Green -Wound Margin Distinct, Distinct, Distinct, Outline Outline Outline Attached Attached Attached -Granulation Amt Medium (34-66%) Medium (34-66%) Medium (34-66%) -Granulation Quality [place] Red -Slough/Fibrin Yes -Necrosis Amt Large (67-100%) Medium (34-66%) Medium (34-66%) -Necrotic Tissue Type Adherent Slough Adherent Slough Adherent Slough -Structure Exposed N/A N/A N/A -Texture (Earlene-wound Skin Appearance) Assessed Assessed, Assessed Friable -Moisture (Earlene-wound Skin Appearance) Assessed Assessed Assessed -Color (Earlene-wound Skin Appearance) Assessed Assessed, Assessed Hemosiderin Staining -Temperature (Earlene-wound Skin No Abnormality No Abnormality No Abnormality Appearance) (Pt Warm) (Pt Warm) (Pt Warm) -Tenderness on Palpation (Earlene-wound Yes No Yes Skin Appearance) -Ulcer Cleansing Soap and Water Wound Cleanser Soap and Water -Foul Odor after Cleansing No No No -Anesthetic Used Cetacaine 4% Lidocaine 4% Lidocaine Solution Solution 4. LLE post -Combined with other wound Yes No -Combined with (Name of Wound-Exactly posterior as it is documented) -Current Size (cm) - Length 4.0 1.5 7.5 -Current Size (cm) - Width 0.8 2.2 3.5 -Current Size (cm) - Depth 0.1 0.1 0.1 -Total Square Cm 3.20 3.30 26.25 -Date of Last Picture (Recall this 10/19/23 field) -Photo Taken No Yes Yes -Epithelialization Small 1-33% -Tunneling No No No -Undermining/Tunneling No No No -Circular Undermining No No No -Change in Wound Grade/Stage No -Exudate Amt Medium Medium -Exudate Type Serosanguineous Serosanguineous -Wound Margin Distinct, Distinct, Distinct, Outline Outline Outline Attached Attached Attached -Granulation Amt Small (1-33%) Medium (34-66%) Medium (34-66%) -Granulation Quality [place] -Slough/Fibrin Yes Yes -Necrosis Amt Small (1-33%) Medium (34-66%) Medium (34-66%) -Necrotic Tissue Type Adherent Slough Adherent Slough Adherent Slough -Structure Exposed N/A N/A N/A -Texture (Earlene-wound Skin Appearance) Assessed Assessed Assessed -Moisture (Earlene-wound Skin Appearance) Assessed Assessed Assessed -Color (Earlene-wound Skin Appearance) Assessed Assessed Assessed -Temperature (Earlene-wound Skin No Abnormality No Abnormality No Abnormality Appearance) (Pt Warm) (Pt Warm) (Pt Warm) -Tenderness on Palpation (Earlene-wound Yes No Yes Skin Appearance) -Ulcer Cleansing Soap and Water Wound Cleanser Soap and Water -Foul Odor after Cleansing No No No -Anesthetic Used Cetacaine 4% Lidocaine 4% Lidocaine Solution Solution Lower Limb Edema Present Yes Right Calf (cm) 45.8 48.2 Point of measurement (cm from the medial 45.4 instep) Right Ankle (cm) 27.2 28 Point of Measurement (cm from the medial 27.0 instep) Left Calf (cm) 46.8 52 49 Left Ankle (cm) 27.0 26.8 27.8 10/26/23 08:09 Wound Center Nurse 1 5. LLE anterior -Combined with other wound -Current Size (cm) - Length -Current Size (cm) - Width -Current Size (cm) - Depth -Total Square Cm -Photo Taken -Epithelialization -Tunneling -Undermining/Tunneling -Circular Undermining -Exudate Amt -Exudate Type -Wound Margin -Granulation Amt -Slough/Fibrin -Necrosis Amt -Necrotic Tissue Type -Structure Exposed -Texture (Earlene-wound Skin Appearance) -Moisture (Earlene-wound Skin Appearance) -Color (Earlene-wound Skin Appearance) -Temperature (Earlene-wound Skin Appearance) -Tenderness on Palpation (Earlene-wound Skin Appearance) -Ulcer Cleansing -Foul Odor after Cleansing -Anesthetic Used 6. RLE lateral -Combined with other wound -Current Size (cm) - Length 6 -Current Size (cm) - Width 9.2 -Current Size (cm) - Depth 0.1 -Total Square Cm 55.2 -Date of Last Picture (Recall this field) -Photo Taken -Epithelialization -Tunneling No -Undermining/Tunneling No -Circular Undermining No -Exudate Amt Small -Exudate Type Sanguineous -Wound Margin Flat & Intact -Granulation Amt Medium (34-66%) -Granulation Quality Pale,[place] -Slough/Fibrin -Necrosis Amt Medium (34-66%) -Necrotic Tissue Type Adherent Slough -Structure Exposed -Texture (Earlene-wound Skin Appearance) Assessed -Moisture (Earlene-wound Skin Appearance) Assessed -Color (Aerlene-wound Skin Appearance) Assessed -Temperature (Earlene-wound Skin No Abnormality Appearance) (Pt Warm) -Tenderness on Palpation (Earlene-wound No Skin Appearance) -Ulcer Cleansing Soap and Water -Foul Odor after Cleansing -Anesthetic Used 4% Lidocaine Solution 4. LLE post -Combined with other wound -Combined with (Name of Wound-Exactly as it is documented) -Current Size (cm) - Length 1.5 -Current Size (cm) - Width 3.0 -Current Size (cm) - Depth 0.1 -Total Square Cm 4.50 -Date of Last Picture (Recall this field) -Photo Taken -Epithelialization -Tunneling -Undermining/Tunneling -Circular Undermining -Change in Wound Grade/Stage -Exudate Amt Small -Exudate Type Serous -Wound Margin Flat & Intact -Granulation Amt Medium (34-66%) -Granulation Quality Pale,[place] -Slough/Fibrin -Necrosis Amt Medium (34-66%) -Necrotic Tissue Type Adherent Slough -Structure Exposed -Texture (Earlene-wound Skin Appearance) Assessed -Moisture (Earlene-wound Skin Appearance) Assessed -Color (Earlene-wound Skin Appearance) Assessed -Temperature (Earlene-wound Skin No Abnormality Appearance) (Pt Warm) -Tenderness on Palpation (Earlene-wound No Skin Appearance) -Ulcer Cleansing Soap and Water -Foul Odor after Cleansing No -Anesthetic Used 5% Lidocaine Gel Lower Limb Edema Present Right Calf (cm) 44 Point of measurement (cm from the medial instep) Right Ankle (cm) 30.5 Point of Measurement (cm from the medial instep) Left Calf (cm) 45 Left Ankle (cm) 29 WC - Nurse 2 - General Ulcer CM Notes Start: 10/05/23 08:27 Freq: Status: Active Protocol: Activity Type Activity Date Activity User E-sign Co-sign Detail Recorded Client Recorded Date Recorded By Document 10/05/23 13:31 PL [id number] 10/05/23 13:34 PL Document 10/12/23 11:52 PL [id number] 10/12/23 11:54 PL Document 10/19/23 08:48 PL Tablet 10/19/23 08:51 PL 10/05/23 10/12/23 10/19/23 13:31 11:52 08:48 Wound Center Nurse 2 7. RLE anterior -Procedure Performed No -Wound/Ulcer Outcome Healed- Epithelialized 5. LLE anterior -Time 08:58 -Correct Patient Yes -Correct Side, Site, Position Yes -Correct Procedure Yes -Procedure Performed Yes No -Type of Procedure Debridement -Clinical Debridement Subcutaneous -Tissue Removed Subcutaneous -Post Debridement (cm) - Length 1.7 -Post Debridement (cm) - Width 2.7 -Post Debridement (cm) - Depth 0.1 -Total Square (Post) (cm) 4.59 -Area of Debridement (cm) - Length 1.7 -Area of Debridement (cm) - Width 2.7 -Total Square (Area) (cm) 4.59 -Tunneling No -Undermining/Tunneling No -Circular Undermining No -Wound/Ulcer Outcome Not Healed Healed- Epithelialized -Ulcer Cleansing Rinsed/ Irrigated with Saline -Foul Odor after Cleansing No -Bioengineered Tissue No -Bleeding Controlled with Pressure -Treatment Response Procedure Tolerated Well -Debridement - Subq, 1st 20sq cm No 6. RLE lateral -Time 08:58 08:30 08:35 -Correct Patient Yes Yes Yes -Correct Side, Site, Position Yes Yes Yes -Correct Procedure Yes Yes Yes -Procedure Performed Yes Yes Yes -Type of Procedure Debridement Debridement Debridement -Clinical Debridement Subcutaneous Subcutaneous Subcutaneous -Tissue Removed Subcutaneous Subcutaneous Subcutaneous -Post Debridement (cm) - Length 7.7 2.8 14.5 -Post Debridement (cm) - Width 9.0 2.5 9.2 -Post Debridement (cm) - Depth 0.2 0.1 0.1 -Total Square (Post) (cm) 69.30 7.00 133.40 -Area of Debridement (cm) - Length 7.7 2.8 14.5 -Area of Debridement (cm) - Width 9.0 2.5 9.2 -Total Square (Area) (cm) 69.30 7.00 133.40 -Tunneling No No No -Undermining/Tunneling No No No -Circular Undermining No No No -Wound/Ulcer Outcome Not Healed Not Healed Not Healed -Ulcer Cleansing Rinsed/ Rinsed/ Rinsed/ Irrigated with Irrigated with Irrigated with Saline Saline Saline -Foul Odor after Cleansing No No No -Bioengineered Tissue No No No -Bleeding Controlled with Pressure Pressure Pressure -Treatment Response Procedure Procedure Procedure Tolerated Well Tolerated Well Tolerated Well -Debridement - Subq, 1st 20sq cm No No No 4. LLE post -Time 08:58 08:30 08:35 -Correct Patient Yes Yes Yes -Correct Side, Site, Position Yes Yes Yes -Correct Procedure Yes Yes Yes -Procedure Performed Yes Yes Yes -Type of Procedure Debridement Debridement Debridement -Clinical Debridement Subcutaneous Subcutaneous Subcutaneous -Tissue Removed Subcutaneous Subcutaneous Subcutaneous -Post Debridement (cm) - Length 4.0 1.5 7.5 -Post Debridement (cm) - Width 0.8 2.2 3.5 -Post Debridement (cm) - Depth 0.1 0.1 0.1 -Total Square (Post) (cm) 3.20 3.30 26.25 -Area of Debridement (cm) - Length 4.0 1.5 7.5 -Area of Debridement (cm) - Width 0.8 2.2 3.5 -Total Square (Area) (cm) 3.20 3.30 26.25 -Tunneling No No No -Undermining/Tunneling No No No -Circular Undermining No No No -Wound/Ulcer Outcome Not Healed Not Healed Not Healed -Ulcer Cleansing Rinsed/ Rinsed/ Rinsed/ Irrigated with Irrigated with Irrigated with Saline Saline Saline -Foul Odor after Cleansing No No No -Bioengineered Tissue No No No -Bleeding Controlled with Pressure Pressure Pressure -Treatment Response Procedure Procedure Procedure Tolerated Well Tolerated Well Tolerated Well -Debridement - Subq, 1st 20sq cm Yes Yes Yes -Debridement, SubQ, ea addt'l 20sq cm 3 7 or part thereof Pain Scale: 0-10 Numeric Is Patient Pain Free? Yes Yes Yes WC - Nurse 3 - General Ulcer D/C NN Start: 10/05/23 08:27 Freq: Status: Active Protocol: Activity Type Activity Date Activity User E-sign Co-sign Detail Recorded Client Recorded Date Recorded By Document 10/05/23 09:13 Desktop 10/05/23 09:26 GM Document 10/12/23 08:42 RB Desktop 10/12/23 08:44 RB Document 10/19/23 09:03 RB Desktop 10/19/23 09:06 RB 10/05/23 10/12/23 10/19/23 09:13 08:42 09:03 Wound Care Center Nurse 3 5. LLE anterior -Ulcer Cleansing Not Cleansed Wound Cleanser -Foul Odor after Cleansing No -Negative Pressure Wound Therapy N/A -Other Dressing aquacel AG -Primary Dressing Covered/Secured with Dry Gauze & Dry Gauze & Roll Gauze Roll Gauze, Secured with Tape 6. RLE lateral -Ulcer Cleansing Not Cleansed Wound Cleanser Wound Cleanser -Foul Odor after Cleansing No -Negative Pressure Wound Therapy N/A -Primary Dressing Applied Aquacel AG 4x4 Aquacel AG 4x4 Aquacel AG 4x4 -Other Dressing abd -Primary Dressing Covered/Secured with Dry Gauze & Dry Gauze,Dry Dry Gauze,Dry Roll Gauze, Gauze & Roll Gauze & Roll Secured with Gauze,Secured Gauze,Secured Tape with Tape with Tape -Aquacel AG 4x4 1 1 1 4. LLE post -Ulcer Cleansing Not Cleansed Wound Cleanser Wound Cleanser -Foul Odor after Cleansing No -Negative Pressure Wound Therapy N/A -Primary Dressing Applied Aquacel AG 4x4 -Other Dressing aquacel AG -Primary Dressing Covered/Secured with Dry Gauze & Dry Gauze,Dry Roll Gauze, Gauze & Roll Secured with Gauze,Secured Tape with Tape -Aquacel AG 4x4 1 Right -Lotion applied to leg before Yes compression wrap -Tubular Bandage Double Layer Double Layer -Size of Tubigrip Used Size E Size E -Size E ($) 2 2 -Other circaid Left -Lotion applied to leg before Yes compression wrap -Tubular Bandage Double Layer Double Layer -Size of Tubigrip Used Size E Size E -Size E ($) 2 2 -Other circaid Treatment Response Procedure Procedure Tolerated Well Tolerated Well Pain Scale: 0-10 Numeric Is Patient Pain Free? Yes Yes Yes Teaching: Wound Center Control Swelling with Leg Elevation -Person Taught Patient -Teaching Method Discussion -Response to teaching Verbalize understanding Compression Wraps & Stockings -Person Taught Patient -Teaching Method Discussion -Response to teaching Verbalize understanding WC - Visit Discharge Discharge Condition Stable Stable Stable Ambulatory Status Ambulatory Ambulatory Ambulatory Transportation Private Auto Private Auto Private Auto Medication Reconcilliation completed & Yes No No provided to patient/care provider Clinical Summary of Care Provided Yes Yes Yes Additional Wound Wound debrided: Left posterior calf ulceration Laterality: Left Type of Debridement: Excisional debridement Anesthesia Used: 5% Lidocaine Gel Depth: Down to and including healthy tissue and in the subcutaneous layer Percentage of wound debrided: 100 Instrument Used: 5mm curette Tissue Removed: Bioburden Severity: Fat Layer Exposed Amount of bleeding with debridement: Mild Bleeding Controlled with: Compression and gauze Patient tolerated procedure: Patient tolerated procedure well Assessment/Plan Assessment/Plan (1) Venous ulcer of right leg: CODE(S): I83.019 - Varicose veins of right lower extremity with ulcer of unspecified site; L97.919 - Non-pressure chronic ulcer of unspecified part of right lower leg with unspecified severity (2) Chronic venous hypertension w/ulcer and inflammation involv right side: CODE(S): I87.331 - Chronic venous hypertension (idiopathic) with ulcer and inflammation of right lower extremity (3) Venous ulcer of left leg: CODE(S): I83.029 - Varicose veins of left lower extremity with ulcer of unspecified site; L97.929 - Non-pressure chronic ulcer of unspecified part of left lower leg with unspecified severity (4) Chronic venous hypertension w/ulcer and inflammation involv left side: CODE(S): I87.332 - Chronic venous hypertension (idiopathic) with ulcer and inflammation of left lower extremity (5) Chronic venous hypertension with inflammation involving left side: CODE(S): I87.322 - Chronic venous hypertension (idiopathic) with inflammation of left lower extremity (6) Venous stasis dermatitis of left lower extremity: CODE(S): I87.2 - Venous insufficiency (chronic) (peripheral) (7) Venous hypertension, chronic, with ulcer and inflammation: CODE(S): I87.339 - Chronic venous hypertension (idiopathic) with ulcer and inflammation of unspecified lower extremity; L97.909 - Non-pressure chronic ulcer of unspecified part of unspecified lower leg with unspecified severity QUALIFIERS: Laterality: right Qualified Code(s): I87.331 - Chronic venous hypertension (idiopathic) with ulcer and inflammation of right lower extremity; L97.919 - Non-pressure chronic ulcer of unspecified part of right lower leg with unspecified severity (8) Leg swelling: CODE(S): M79.89 - Other specified soft tissue disorders (9) Leg pain: CODE(S): M79.606 - Pain in leg, unspecified QUALIFIERS: Laterality: bilateral Qualified Code(s): M79.604 - Pain in right leg; M79.605 - Pain in left leg (10) Hyperlipidemia: CODE(S): E78.5 - Hyperlipidemia, unspecified (11) Hypertension: CODE(S): I10 - Essential (primary) hypertension (12) Lipodermatosclerosis: CODE(S): I83.10 - Varicose veins of unspecified lower extremity with inflammation (13) Hyperpigmentation: CODE(S): L81.9 - Disorder of pigmentation, unspecified (14) Morbid obesity: CODE(S): E66.01 - Morbid (severe) obesity due to excess calories (15) H/O umbilical hernia repair: CODE(S): Z98.890 - Other specified postprocedural states; Z87.19 - Personal history of other diseases of the digestive system (16) Chronic venous insufficiency: CODE(S): I87.2 - Venous insufficiency (chronic) (peripheral) PLAN: Plan This is a 53-year-old male with a longstanding history of chronic venous insufficiency, venous hypertension with inflammation and ulceration, and prior episodes of venous stasis ulcerations. He also experiences chronic swelling and edema in his lower extremities. 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 The patient's occupation prevents him from elevating his lower extremities as recommended. The nature of his occupation requires long periods of idle sitting. A lengthy discussion has been undertaken as to the appropriate conservative treatment measures relative to the patient's presenting symptoms and manifestations. The patient has been treated for numerous weeks relative to the swelling, edema, and ulcerations in his lower extremities. However, the degree of swelling and edema, and the expanding ulcerations in the patient's lower extremities, associated with the development of cellulitis, prompted the patient to be referred to the emergency department for inpatient admission. The patient was admitted to [facility] on September 21, where an inpatient stay transpired for 4 days. During that period of time, the patient was treated with intravenous antibiotics which included Augmentin and Levaquin. The patient was subsequently discharged on oral Augmentin and Cipro, the course of which has now been completed. There continues to be significant improvement in the status of the patient's lower swelling, edema, and ulcerations. The swelling and edema in the lower extremities is minimized, and healing of the patient's ulcerations has been progressive in recent weeks. 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 This will enable him to continue with concerted efforts at leg elevation. 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 We are to continue with conservative treatment measures which include leg elevation, avoidance of idle sitting, activity as tolerated, and compression to the patient's lower extremities by means of CircAid's. The patient has received new CircAid garments, and is to continue wearing on a daily basis. Weight loss has also been recommended. We are to continue with the use of Aquacel Ag topically to the ulcerations bilaterally. Aquacel Ag is to be applied on a daily basis. The patient has been instructed in appropriate means of application. Moisturizing skin lotion is to be applied topically to the intact skin in the gaiter areas bilaterally. We are in the process of attempting to procure pneumatic mechanical compression pumps for the patient's use. The patient is to return in 1 week for reevaluation. Total time: 26 minutes
== END 2023-10-28 23:59 | disposition home or self-care (01) ==
LOC: WC 08:15
PROVIDERS: PCP Nurse Practitioner Family; Referring Provider Surgery; Visit Provider Surgery
DX: I87.331 Chronic venous hypertension (idiopathic) with ulcer and inflammation of right lower extremity (principal); L97.212 Non-pressure chronic ulcer of right calf with fat layer exposed; E66.01 Morbid (severe) obesity due to excess calories; Z68.43 Body mass index [BMI] 50.0-59.9, adult; I83.813 Varicose veins of bilateral lower extremities with pain; R60.0 Localized edema; E78.5 Hyperlipidemia, unspecified; Z79.2 Long term (current) use of antibiotics; M79.89 Other specified soft tissue disorders
CPT/HCPCS: 11042; 11045

== ENCOUNTER 2023-11-23 08:15 | Outpatient (RCR) | payer BC, SELFPAY ==
[2023-10-29 00:22] VITALS: BP 163/78; PULSE 56; RESP 18; TEMP 36.1; BMI 51.7
--- NOTE | 2023-11-09 08:28 | HP.PCM_ITS ---
History of Present Illness Date of Service: 11/09/23 Chief Complaint: Venous stasis dermatitis with swelling and edema bilaterally; venous stasis ulcerations of the lower extremities; bilateral lower extremity lymphedema History of Wound: This is a 53-year-old male with a longstanding history of chronic venous disease. He has previously been treated at this facility for venous stasis ulcerations of both lower extremities. He was most recently treated only several months prior to his current presentation. He presented at this time with bilateral lower extremity swelling, edema, and lymphedema, with venous ulcerations in the lower extremities. Upon his prior discharge, the patient had been instructed in the use of his Velcro compression garments. He had been advised to elevate his lower extremities as much as possible, to heart level, or higher. Efforts had been made to obtain pneumatic mechanical compression pumps, but the patient's insurance did not allow for this benefit. The patient has had chronic venous stasis dermatitis in his lower extremities for several years. 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 His profession requires him to sit for prolonged periods. The patient is morbidly obese. He denies a history of deep vein thrombosis in the past. He claims to sleep on a flat mattress at night. [facility] Medical History Chronic venous hypertension w/ulcer and inflammation involv left side Chronic venous hypertension w/ulcer and inflammation involv right side Chronic venous hypertension with inflammation involving left side Chronic venous insufficiency CPAP (continuous positive airway pressure) dependence GERD (gastroesophageal reflux disease) Hyperlipidemia Hyperpigmentation Hypertension Leg pain Leg swelling Lipodermatosclerosis Lymphedema due to venous disease Morbid obesity Non-smoker Sleep apnea Venous hypertension, chronic, with inflammation Venous hypertension, chronic, with ulcer and inflammation Venous stasis dermatitis of left lower extremity Venous stasis ulcer Venous ulcer of left leg Venous ulcer of right leg Home Medications furosemide 40 mg tablet 40 mg PO BID 06/24/21 [History Last Taken 09/20/23] lansoprazole 30 mg capsule,delayed release 30 mg PO DAILY 06/24/21 [History Last Taken 09/20/23] losartan 100 mg tablet 100 mg PO DAILY 06/24/21 [History Last Taken 09/20/23] pravastatin 10 mg tablet 10 mg PO DAILY 06/24/21 [History Last Taken 09/20/23] amoxicillin 875 mg-potassium clavulanate 125 mg tablet 1 tab PO BID #8 tabs 1 [Rx Last Taken Unknown] levofloxacin 750 mg tablet 750 mg PO DAILY #4 tabs 09/25/23 [Rx Last Taken Unknown] Allergy/AdvReac Type Severity Reaction Status Date / Time No Known Allergies Allergy Verified 09/21/23 09:25 Surgical History H/O umbilical hernia repair Social History 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 General Appearance: cooperative, comfortable, well kempt and well developed Orientation / Consciousness: awake, oriented to person, oriented to place and oriented to time HEENT normocephalic, head/scalp atraumatic and hearing grossly normal bilaterally Head and Scalp: normal to inspection, normocephalic and atraumatic Face and Sinus: normal facial exam External Ear: external ears normal Eyes PERRL and EOMs intact bilaterally General Eye: normal appearance of both eyes Resp normal respiratory effort, normal air movement, no retractions and no use of a ccessory muscles Effort and Inspection: able to speak in complete sentences and symmetric chest movement Extremity no calf tenderness General Extremity: Negative for clubbing or cyanosis Skin Wound Narrative: The swelling and edema in the patient's lower extremities is much improved, and remains at a minimum. Significant healing has occurred at the site of the large right lateral calf ulceration. There has been significant epithelialization. Now, only 1 ulceration remains, which is generally pink and healthy in appearance. Dimensions are documented elsewhere. There is no sign of infection or cellulitis. There is a moderate amount of bioburden. There is mild exfoliation of the epidermis at the site of the previous ulceration, where healing has now occurred. The ulcerations in the patient's left lower extremity have healed and are completely epithelialized. Lipodermatosclerosis and hyperpigmentation are noted in the gaiter areas bilaterally. Neuro oriented x3, CN's II-XII intact bilaterally, moves all extremities and no focal motor deficits Sensorium / Orientation: awake, alert, oriented to person, oriented to place and oriented to time Psych Appearance: grossly normal and appropriate Attitude: calm Activity / Motor Behavior: appropriate eye contact Speech: normal speech Mood & Affect: euthymic mood Thought Process: normal thought process Thought Content: normal thought content Attention / Concentration: attention grossly intact Debridement Note Debridement Note Wound debrided: Right lateral calf ulceration Laterality: Right Type of Debridement: Excisional debridement Anesthesia Used: 5% Lidocaine Gel and Cetacaine Depth: Down to and including healthy tissue and in the subcutaneous layer Percentage of wound debrided: 100 Instrument Used: 5mm curette Tissue Removed: Bioburden and nonviable tissue, sloughing epidermis Severity: Fat Layer Exposed Amount of bleeding with debridement: Mild Bleeding Controlled with: Compression and gauze Patient tolerated procedure: Patient tolerated procedure well Post-Debridement Measurements and Additional Note: Post-Debridement Measurements/Treatment - Nurse 1 - General Ulcer Assessment Start: 10/05/23 08:27 Freq: Status: Active Protocol: JUSTINE Activity Type Activity Date Activity User E-sign Co-sign Detail Recorded Client Recorded Date Recorded By Document 10/05/23 08:28 Desktop 10/05/23 08:48 Document 10/12/23 08:04 RB Desktop 10/12/23 08:12 RB Document 10/19/23 08:22 Desktop 10/19/23 08:33 Document 10/26/23 08:09 WA Desktop 10/26/23 08:18 WA 10/05/23 10/12/23 10/19/23 08:28 08:04 08:22 - Today's Visit Information Type of service Follow-up Visit Follow-up Visit Follow-up Visit (Physician/WELDING MACHINE OPERATOR FRICTION (Physician/WELDING MACHINE OPERATOR FRICTION (Physician/WELDING MACHINE OPERATOR FRICTION ) ) ) Arrival Mode Ambulatory Ambulatory Ambulatory Transfer Assistance None None None Accompanied by Patient Identification Verified (Name & Yes Yes Yes ) Patient Requires Transmission-Based No No Precautions Height and Weight Body Mass Index (BMI) 51.7 51.7 51.7 BMI Classification Obese Obese Obese Vital Signs Temperature (97.8 F-99.1 F) 97.5 F L 97.1 F L 96.8 F L Temperature Source Temporal Temporal Temporal Pulse Rate (60-100) 69 61 60 Pulse Location Monitor Monitor Monitor Respiratory Rate (12-18) 18 Respiratory rate source Observation Oxygen Delivery Method Room Air Room Air Blood Pressure (90/60-120/80) 130/60 H 144/68 H 150/70 H Blood Pressure Mean 83 93 96 Source Monitor Monitor Monitor Position Sitting Semi-Fowlers Sitting Blood Pressure Location Right Arm Left Arm Right Arm History Since Last Visit- (Skip if this is Patient's initial visit) Have you changed medications since your No No No last visit? Any new allergies or adverse reactions No No No Had a fall/change in ADL's that may No No No increase risk of falls Signs or symptoms of abuse and/or No No No neglect since last visit Have you been in the hospital since your Yes No No last visit? Has dressing in place as prescribed Yes Yes Yes Has compression in place as prescribed Yes Yes Yes Has offloadiing in place as prescribed No No No Experienced any changes in pain level or No No No management Left Footwear Regular Shoe Regular Shoe Right Footwear Regular Shoe Regular Shoe Pain Scale: 0-10 Numeric Is Patient Pain Free? Yes Yes Yes 10/26/23 08:09 WC - Today's Visit Information Type of service Follow-up Visit (Physician/WELDING MACHINE OPERATOR FRICTION ) Arrival Mode Ambulatory Transfer Assistance Accompanied by self Patient Identification Verified (Name & Yes ) Patient Requires Transmission-Based Precautions Height and Weight Body Mass Index (BMI) 51.7 BMI Classification Obese Vital Signs Temperature (97.8 F-99.1 F) 97 F L Temperature Source Temporal Pulse Rate (60-100) 56 L Pulse Location Monitor Respiratory Rate (12-18) 18 Respiratory rate source Observation Oxygen Delivery Method Room Air Blood Pressure (90/60-120/80) 163/78 H Blood Pressure Mean 106 Source Monitor Position Sitting Blood Pressure Location Left Arm History Since Last Visit- (Skip if this is Patient's initial visit) Have you changed medications since your No last visit? Any new allergies or adverse reactions No Had a fall/change in ADL's that may increase risk of falls Signs or symptoms of abuse and/or neglect since last visit Have you been in the hospital since your last visit? Has dressing in place as prescribed Yes Has compression in place as prescribed Yes Has offloadiing in place as prescribed Yes Experienced any changes in pain level or No management Left Footwear Regular Shoe Right Footwear Regular Shoe Pain Scale: 0-10 Numeric Is Patient Pain Free? Yes WC - Nurse 1 - General Ulcer Measurement Start: 10/05/23 08:27 Freq: Status: Active Protocol: Activity Type Activity Date Activity User E-sign Co-sign Detail Recorded Client Recorded Date Recorded By Document 10/05/23 08:28 GM Desktop 10/05/23 08:48 GM Document 10/12/23 08:04 RB Desktop 10/12/23 08:12 RB Document 10/19/23 08:22 GM Desktop 10/19/23 08:33 GM Document 10/26/23 08:09 WA Desktop 10/26/23 08:18 WA 10/05/23 10/12/23 10/19/23 08:28 08:04 08:22 Wound Center Nurse 1 5. LLE anterior -Combined with other wound No No -Current Size (cm) - Length 1.7 0 -Current Size (cm) - Width 2.7 0 -Current Size (cm) - Depth 0.1 0 -Total Square Cm 4.59 0 -Photo Taken No Yes -Epithelialization Small 1-33% Large 67-100% -Tunneling No No -Undermining/Tunneling No No -Circular Undermining No No -Exudate Amt Medium -Exudate Type Serosanguineous -Wound Margin Flat & Intact -Granulation Amt Small (1-33%) -Slough/Fibrin Yes -Necrosis Amt Medium (34-66%) -Necrotic Tissue Type Adherent Slough -Structure Exposed N/A -Texture (Earlene-wound Skin Appearance) Assessed -Moisture (Earlene-wound Skin Appearance) Assessed -Color (Earlene-wound Skin Appearance) Assessed -Temperature (Earlene-wound Skin No Abnormality Appearance) (Pt Warm) -Tenderness on Palpation (Earlene-wound Yes Skin Appearance) -Ulcer Cleansing Soap and Water -Foul Odor after Cleansing No -Anesthetic Used Cetacaine 6. RLE lateral -Combined with other wound No No No -Current Size (cm) - Length 7.7 2.8 14.5 -Current Size (cm) - Width 9.0 2.5 9.2 -Current Size (cm) - Depth 0.2 0.1 0.1 -Total Square Cm 69.30 7.00 133.40 -Date of Last Picture (Recall this 10/19/23 field) -Photo Taken No Yes Yes -Epithelialization None Present Medium 34-66% -Tunneling No No No -Undermining/Tunneling No No No -Circular Undermining No No No -Exudate Amt Large Large Large -Exudate Type Serosanguineous Serosanguineous Yellow/Green -Wound Margin Distinct, Distinct, Distinct, Outline Outline Outline Attached Attached Attached -Granulation Amt Medium (34-66%) Medium (34-66%) Medium (34-66%) -Granulation Quality [place] Red -Slough/Fibrin Yes -Necrosis Amt Large (67-100%) Medium (34-66%) Medium (34-66%) -Necrotic Tissue Type Adherent Slough Adherent Slough Adherent Slough -Structure Exposed N/A N/A N/A -Texture (Earlene-wound Skin Appearance) Assessed Assessed, Assessed Friable -Moisture (Earlene-wound Skin Appearance) Assessed Assessed Assessed -Color (Earlene-wound Skin Appearance) Assessed Assessed, Assessed Hemosiderin Staining -Temperature (Earlene-wound Skin No Abnormality No Abnormality No Abnormality Appearance) (Pt Warm) (Pt Warm) (Pt Warm) -Tenderness on Palpation (Earlene-wound Yes No Yes Skin Appearance) -Ulcer Cleansing Soap and Water Wound Cleanser Soap and Water -Foul Odor after Cleansing No No No -Anesthetic Used Cetacaine 4% Lidocaine 4% Lidocaine Solution Solution 4. LLE post -Combined with other wound Yes No -Combined with (Name of Wound-Exactly posterior as it is documented) -Current Size (cm) - Length 4.0 1.5 7.5 -Current Size (cm) - Width 0.8 2.2 3.5 -Current Size (cm) - Depth 0.1 0.1 0.1 -Total Square Cm 3.20 3.30 26.25 -Date of Last Picture (Recall this 10/19/23 field) -Photo Taken No Yes Yes -Epithelialization Small 1-33% -Tunneling No No No -Undermining/Tunneling No No No -Circular Undermining No No No -Change in Wound Grade/Stage No -Exudate Amt Medium Medium -Exudate Type Serosanguineous Serosanguineous -Wound Margin Distinct, Distinct, Distinct, Outline Outline Outline Attached Attached Attached -Granulation Amt Small (1-33%) Medium (34-66%) Medium (34-66%) -Granulation Quality [place] -Slough/Fibrin Yes Yes -Necrosis Amt Small (1-33%) Medium (34-66%) Medium (34-66%) -Necrotic Tissue Type Adherent Slough Adherent Slough Adherent Slough -Structure Exposed N/A N/A N/A -Texture (Earlene-wound Skin Appearance) Assessed Assessed Assessed -Moisture (Earlene-wound Skin Appearance) Assessed Assessed Assessed -Color (Earlene-wound Skin Appearance) Assessed Assessed Assessed -Temperature (Earlene-wound Skin No Abnormality No Abnormality No Abnormality Appearance) (Pt Warm) (Pt Warm) (Pt Warm) -Tenderness on Palpation (Earlene-wound Yes No Yes Skin Appearance) -Ulcer Cleansing Soap and Water Wound Cleanser Soap and Water -Foul Odor after Cleansing No No No -Anesthetic Used Cetacaine 4% Lidocaine 4% Lidocaine Solution Solution Lower Limb Edema Present Yes Right Calf (cm) 45.8 48.2 Point of measurement (cm from the medial 45.4 instep) Right Ankle (cm) 27.2 28 Point of Measurement (cm from the medial 27.0 instep) Left Calf (cm) 46.8 52 49 Left Ankle (cm) 27.0 26.8 27.8 10/26/23 08:09 Wound Center Nurse 1 5. LLE anterior -Combined with other wound -Current Size (cm) - Length -Current Size (cm) - Width -Current Size (cm) - Depth -Total Square Cm -Photo Taken -Epithelialization -Tunneling -Undermining/Tunneling -Circular Undermining -Exudate Amt -Exudate Type -Wound Margin -Granulation Amt -Slough/Fibrin -Necrosis Amt -Necrotic Tissue Type -Structure Exposed -Texture (Earlene-wound Skin Appearance) -Moisture (Earlene-wound Skin Appearance) -Color (Earlene-wound Skin Appearance) -Temperature (Earlene-wound Skin Appearance) -Tenderness on Palpation (Earlene-wound Skin Appearance) -Ulcer Cleansing -Foul Odor after Cleansing -Anesthetic Used 6. RLE lateral -Combined with other wound -Current Size (cm) - Length 6 -Current Size (cm) - Width 9.2 -Current Size (cm) - Depth 0.1 -Total Square Cm 55.2 -Date of Last Picture (Recall this field) -Photo Taken -Epithelialization -Tunneling No -Undermining/Tunneling No -Circular Undermining No -Exudate Amt Small -Exudate Type Sanguineous -Wound Margin Flat & Intact -Granulation Amt Medium (34-66%) -Granulation Quality Pale,[place] -Slough/Fibrin -Necrosis Amt Medium (34-66%) -Necrotic Tissue Type Adherent Slough -Structure Exposed -Texture (Earlene-wound Skin Appearance) Assessed -Moisture (Earlene-wound Skin Appearance) Assessed -Color (Earlene-wound Skin Appearance) Assessed -Temperature (Earlene-wound Skin No Abnormality Appearance) (Pt Warm) -Tenderness on Palpation (Earlene-wound No Skin Appearance) -Ulcer Cleansing Soap and Water -Foul Odor after Cleansing -Anesthetic Used 4% Lidocaine Solution 4. LLE post -Combined with other wound -Combined with (Name of Wound-Exactly as it is documented) -Current Size (cm) - Length 1.5 -Current Size (cm) - Width 3.0 -Current Size (cm) - Depth 0.1 -Total Square Cm 4.50 -Date of Last Picture (Recall this field) -Photo Taken -Epithelialization -Tunneling -Undermining/Tunneling -Circular Undermining -Change in Wound Grade/Stage -Exudate Amt Small -Exudate Type Serous -Wound Margin Flat & Intact -Granulation Amt Medium (34-66%) -Granulation Quality Pale,[place] -Slough/Fibrin -Necrosis Amt Medium (34-66%) -Necrotic Tissue Type Adherent Slough -Structure Exposed -Texture (Earlene-wound Skin Appearance) Assessed -Moisture (Earlene-wound Skin Appearance) Assessed -Color (Earlene-wound Skin Appearance) Assessed -Temperature (Earlene-wound Skin No Abnormality Appearance) (Pt Warm) -Tenderness on Palpation (Earlene-wound No Skin Appearance) -Ulcer Cleansing Soap and Water -Foul Odor after Cleansing No -Anesthetic Used 5% Lidocaine Gel Lower Limb Edema Present Right Calf (cm) 44 Point of measurement (cm from the medial instep) Right Ankle (cm) 30.5 Point of Measurement (cm from the medial instep) Left Calf (cm) 45 Left Ankle (cm) 29 WC - Nurse 2 - General Ulcer CM Notes Start: 10/05/23 08:27 Freq: Status: Active Protocol: Activity Type Activity Date Activity User E-sign Co-sign Detail Recorded Client Recorded Date Recorded By Document 10/05/23 13:31 PL [id number] 10/05/23 13:34 PL Document 10/12/23 11:52 PL [id number] 10/12/23 11:54 PL Document 10/19/23 08:48 PL Tablet 10/19/23 08:51 PL 10/05/23 10/12/23 10/19/23 13:31 11:52 08:48 Wound Center Nurse 2 7. RLE anterior -Procedure Performed No -Wound/Ulcer Outcome Healed- Epithelialized 5. LLE anterior -Time 08:58 -Correct Patient Yes -Correct Side, Site, Position Yes -Correct Procedure Yes -Procedure Performed Yes No -Type of Procedure Debridement -Clinical Debridement Subcutaneous -Tissue Removed Subcutaneous -Post Debridement (cm) - Length 1.7 -Post Debridement (cm) - Width 2.7 -Post Debridement (cm) - Depth 0.1 -Total Square (Post) (cm) 4.59 -Area of Debridement (cm) - Length 1.7 -Area of Debridement (cm) - Width 2.7 -Total Square (Area) (cm) 4.59 -Tunneling No -Undermining/Tunneling No -Circular Undermining No -Wound/Ulcer Outcome Not Healed Healed- Epithelialized -Ulcer Cleansing Rinsed/ Irrigated with Saline -Foul Odor after Cleansing No -Bioengineered Tissue No -Bleeding Controlled with Pressure -Treatment Response Procedure Tolerated Well -Debridement - Subq, 1st 20sq cm No 6. RLE lateral -Time 08:58 08:30 08:35 -Correct Patient Yes Yes Yes -Correct Side, Site, Position Yes Yes Yes -Correct Procedure Yes Yes Yes -Procedure Performed Yes Yes Yes -Type of Procedure Debridement Debridement Debridement -Clinical Debridement Subcutaneous Subcutaneous Subcutaneous -Tissue Removed Subcutaneous Subcutaneous Subcutaneous -Post Debridement (cm) - Length 7.7 2.8 14.5 -Post Debridement (cm) - Width 9.0 2.5 9.2 -Post Debridement (cm) - Depth 0.2 0.1 0.1 -Total Square (Post) (cm) 69.30 7.00 133.40 -Area of Debridement (cm) - Length 7.7 2.8 14.5 -Area of Debridement (cm) - Width 9.0 2.5 9.2 -Total Square (Area) (cm) 69.30 7.00 133.40 -Tunneling No No No -Undermining/Tunneling No No No -Circular Undermining No No No -Wound/Ulcer Outcome Not Healed Not Healed Not Healed -Ulcer Cleansing Rinsed/ Rinsed/ Rinsed/ Irrigated with Irrigated with Irrigated with Saline Saline Saline -Foul Odor after Cleansing No No No -Bioengineered Tissue No No No -Bleeding Controlled with Pressure Pressure Pressure -Treatment Response Procedure Procedure Procedure Tolerated Well Tolerated Well Tolerated Well -Debridement - Subq, 1st 20sq cm No No No 4. LLE post -Time 08:58 08:30 08:35 -Correct Patient Yes Yes Yes -Correct Side, Site, Position Yes Yes Yes -Correct Procedure Yes Yes Yes -Procedure Performed Yes Yes Yes -Type of Procedure Debridement Debridement Debridement -Clinical Debridement Subcutaneous Subcutaneous Subcutaneous -Tissue Removed Subcutaneous Subcutaneous Subcutaneous -Post Debridement (cm) - Length 4.0 1.5 7.5 -Post Debridement (cm) - Width 0.8 2.2 3.5 -Post Debridement (cm) - Depth 0.1 0.1 0.1 -Total Square (Post) (cm) 3.20 3.30 26.25 -Area of Debridement (cm) - Length 4.0 1.5 7.5 -Area of Debridement (cm) - Width 0.8 2.2 3.5 -Total Square (Area) (cm) 3.20 3.30 26.25 -Tunneling No No No -Undermining/Tunneling No No No -Circular Undermining No No No -Wound/Ulcer Outcome Not Healed Not Healed Not Healed -Ulcer Cleansing Rinsed/ Rinsed/ Rinsed/ Irrigated with Irrigated with Irrigated with Saline Saline Saline -Foul Odor after Cleansing No No No -Bioengineered Tissue No No No -Bleeding Controlled with Pressure Pressure Pressure -Treatment Response Procedure Procedure Procedure Tolerated Well Tolerated Well Tolerated Well -Debridement - Subq, 1st 20sq cm Yes Yes Yes -Debridement, SubQ, ea addt'l 20sq cm 3 7 or part thereof Pain Scale: 0-10 Numeric Is Patient Pain Free? Yes Yes Yes WC - Nurse 3 - General Ulcer D/C NN Start: 10/05/23 08:27 Freq: Status: Active Protocol: Activity Type Activity Date Activity User E-sign Co-sign Detail Recorded Client Recorded Date Recorded By Document 10/05/23 09:13 Desktop 10/05/23 09:26 Document 11/14/23 08:42 RB Desktop 10/12/23 08:44 RB Document 10/19/23 09:03 RB Desktop 10/19/23 09:06 RB 10/05/23 10/12/23 10/19/23 09:13 08:42 09:03 Wound Care Center Nurse 3 5. LLE anterior -Ulcer Cleansing Not Cleansed Wound Cleanser -Foul Odor after Cleansing No -Negative Pressure Wound Therapy N/A -Other Dressing aquacel AG -Primary Dressing Covered/Secured with Dry Gauze & Dry Gauze & Roll Gauze Roll Gauze, Secured with Tape 6. RLE lateral -Ulcer Cleansing Not Cleansed Wound Cleanser Wound Cleanser -Foul Odor after Cleansing No -Negative Pressure Wound Therapy N/A -Primary Dressing Applied Aquacel AG 4x4 Aquacel AG 4x4 Aquacel AG 4x4 -Other Dressing abd -Primary Dressing Covered/Secured with Dry Gauze & Dry Gauze,Dry Dry Gauze,Dry Roll Gauze, Gauze & Roll Gauze & Roll Secured with Gauze,Secured Gauze,Secured Tape with Tape with Tape -Aquacel AG 4x4 1 1 1 4. LLE post -Ulcer Cleansing Not Cleansed Wound Cleanser Wound Cleanser -Foul Odor after Cleansing No -Negative Pressure Wound Therapy N/A -Primary Dressing Applied Aquacel AG 4x4 -Other Dressing aquacel AG -Primary Dressing Covered/Secured with Dry Gauze & Dry Gauze,Dry Roll Gauze, Gauze & Roll Secured with Gauze,Secured Tape with Tape -Aquacel AG 4x4 1 Right -Lotion applied to leg before Yes compression wrap -Tubular Bandage Double Layer Double Layer -Size of Tubigrip Used Size E Size E -Size E ($) 2 2 -Other circaid Left -Lotion applied to leg before Yes compression wrap -Tubular Bandage Double Layer Double Layer -Size of Tubigrip Used Size E Size E -Size E ($) 2 2 -Other circaid Treatment Response Procedure Procedure Tolerated Well Tolerated Well Pain Scale: 0-10 Numeric Is Patient Pain Free? Yes Yes Yes Teaching: Wound Center Control Swelling with Leg Elevation -Person Taught Patient -Teaching Method Discussion -Response to teaching Verbalize understanding Compression Wraps & Stockings -Person Taught Patient -Teaching Method Discussion -Response to teaching Verbalize understanding WC - Visit Discharge Discharge Condition Stable Stable Stable Ambulatory Status Ambulatory Ambulatory Ambulatory Transportation Private Auto Private Auto Private Auto Medication Reconcilliation completed & Yes No No provided to patient/care provider Clinical Summary of Care Provided Yes Yes Yes Additional Wound Wound debrided: Left posterior calf ulceration Laterality: Left Type of Debridement: Excisional debridement Anesthesia Used: 5% Lidocaine Gel Depth: Down to and including healthy tissue and in the subcutaneous layer Percentage of wound debrided: 100 Instrument Used: 5mm curette Tissue Removed: Bioburden Severity: Fat Layer Exposed Amount of bleeding with debridement: Mild Bleeding Controlled with: Compression and gauze Patient tolerated procedure: Patient tolerated procedure well Assessment/Plan Assessment/Plan (1) Lymphedema due to venous disease: CODE(S): I89.0 - Lymphedema, not elsewhere classified; I99.9 - Unspecified disorder of circulatory system (2) Venous ulcer of right leg: CODE(S): I83.019 - Varicose veins of right lower extremity with ulcer of unspecified site; L97.919 - Non-pressure chronic ulcer of unspecified part of right lower leg with unspecified severity (3) Chronic venous hypertension w/ulcer and inflammation involv right side: CODE(S): I87.331 - Chronic venous hypertension (idiopathic) with ulcer and inflammation of right lower extremity (4) Venous ulcer of left leg: CODE(S): I83.029 - Varicose veins of left lower extremity with ulcer of unspecified site; L97.929 - Non-pressure chronic ulcer of unspecified part of left lower leg with unspecified severity (5) Chronic venous hypertension w/ulcer and inflammation involv left side: CODE(S): I87.332 - Chronic venous hypertension (idiopathic) with ulcer and inflammation of left lower extremity (6) Chronic venous hypertension with inflammation involving left side: CODE(S): I87.322 - Chronic venous hypertension (idiopathic) with inflammation of left lower extremity (7) Venous stasis dermatitis of left lower extremity: CODE(S): I87.2 - Venous insufficiency (chronic) (peripheral) (8) Venous hypertension, chronic, with ulcer and inflammation: CODE(S): I87.339 - Chronic venous hypertension (idiopathic) with ulcer and inflammation of unspecified lower extremity; L97.909 - Non-pressure chronic ulcer of unspecified part of unspecified lower leg with unspecified severity QUALIFIERS: Laterality: right Qualified Code(s): I87.331 - Chronic venous hypertension (idiopathic) with ulcer and inflammation of right lower extremity; L97.919 - Non-pressure chronic ulcer of unspecified part of right lower leg with unspecified severity (9) Leg swelling: CODE(S): M79.89 - Other specified soft tissue disorders (10) Leg pain: CODE(S): M79.606 - Pain in leg, unspecified QUALIFIERS: Laterality: bilateral Qualified Code(s): M79.604 - Pain in right leg; M79.605 - Pain in left leg (11) Hyperlipidemia: CODE(S): E78.5 - Hyperlipidemia, unspecified (12) Hypertension: CODE(S): I10 - Essential (primary) hypertension (13) Lipodermatosclerosis: CODE(S): I83.10 - Varicose veins of unspecified lower extremity with inflammation (14) Hyperpigmentation: CODE(S): L81.9 - Disorder of pigmentation, unspecified (15) Morbid obesity: CODE(S): E66.01 - Morbid (severe) obesity due to excess calories (16) H/O umbilical hernia repair: CODE(S): Z98.890 - Other specified postprocedural states; Z87.19 - Personal history of other diseases of the digestive system (17) Chronic venous insufficiency: CODE(S): I87.2 - Venous insufficiency (chronic) (peripheral) PLAN: Plan This is a 53-year-old male with a longstanding history of chronic venous insufficiency, venous hypertension with inflammation and ulceration, and prior episodes of venous stasis ulcerations. He also experiences chronic swelling, edema, and lymphedema in his lower extremities. 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 The patient's occupation prevents him from elevating his lower extremities as recommended. The nature of his occupation requires long periods of idle sitting. A lengthy discussion has been undertaken as to the appropriate conservative treatment measures relative to the patient's presenting symptoms and manifestations. The patient has been treated for numerous weeks relative to the swelling, edema, and ulcerations in his lower extremities. However, the degree of swelling and edema, and the expanding ulcerations in the patient's lower extremities, associated with the development of cellulitis, prompted the patient to be referred to the emergency department for inpatient admission. The patient was admitted to [facility] on September 21, where an inpatient stay transpired for 4 days. During that period of time, the patient was treated with intravenous antibiotics which included Augmentin and Levaquin. The patient was subsequently discharged on oral Augmentin and Cipro, the course of which has now been completed. There continues to be significant improvement in the status of the patient's lower swelling, edema, and ulcerations. The swelling and edema in the lower extremities is minimized, and healing of the p kyle's ulcerations has been progressive in recent weeks. As advised, the patient has taken a hiatus from his job as a delivery truck driver, and intends to remain off of work for another several weeks. This will enable him to continue with concerted efforts at leg elevation. It appears as though the patient's absence from his delivery truck driver employment, with idle sitting for 8 to 10 hours/day, has resulted in a significant improvement in the status of his lower extremities. We are to continue with conservative treatment measures which include leg elevation, avoidance of idle sitting, activity as tolerated, and compression to the patient's lower extremities by means of CircAid's. The patient has received new CircAid garments, and is to continue wearing on a daily basis. Weight loss has also been recommended. We are to continue with the use of Aquacel Ag topically to the ulceration on the right lateral calf. Aquacel Ag is to be applied on a daily basis. The patient has been instructed in appropriate means of application. Moisturizing skin lotion is to be applied topically to the intact skin in the gaiter areas bilaterally. We are in the process of attempting to procure pneumatic mechanical compression pumps for the patient's use. The patient is to return in 1 week for reevaluation. Total time: 25 minutes
[2023-11-09 08:33] VITALS: BP 133/47; PULSE 71; RESP 20; TEMP 36.1; BMI 51.7
[2023-11-16 08:07] VITALS: BP 134/62; PULSE 63; RESP 18; TEMP 36; BMI 51.7
--- NOTE | 2023-11-16 12:08 | PCM.WC.HP ---
History of Present Illness Date of Service: 11/16/23 Chief Complaint: Venous stasis dermatitis with swelling and edema bilaterally; venous stasis ulcerations of the lower extremities; bilateral lower extremity lymphedema History of Wound: This is a 53-year-old male with a longstanding history of chronic venous disease. He has previously been treated at this facility for venous stasis ulcerations of both lower extremities. He was most recently treated only several months prior to his current presentation. He presented at this time with bilateral lower extremity swelling, edema, and lymphedema, with venous ulcerations in the lower extremities. Upon his prior discharge, the patient had been instructed in the use of his Velcro compression garments. He had been advised to elevate his lower extremities as much as possible, to heart level, or higher. Efforts had been made to obtain pneumatic mechanical compression pumps, but the patient's insurance did not allow for this benefit. The patient has had chronic venous stasis dermatitis in his lower extremities for several years. 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 His profession requires him to sit for prolonged periods. The patient is morbidly obese. He denies a history of deep vein thrombosis in the past. He claims to sleep on a flat mattress at night. [facility] Medical History Chronic venous hypertension w/ulcer and inflammation involv left side Chronic venous hypertension w/ulcer and inflammation involv right side Chronic venous hypertension with inflammation involving left side Chronic venous insufficiency CPAP (continuous positive airway pressure) dependence GERD (gastroesophageal reflux disease) Hyperlipidemia Hyperpigmentation Hypertension Leg pain Leg swelling Lipodermatosclerosis Lymphedema due to venous disease Morbid obesity Non-smoker Sleep apnea Venous hypertension, chronic, with inflammation Venous hypertension, chronic, with ulcer and inflammation Venous stasis dermatitis of left lower extremity Venous stasis ulcer Venous ulcer of left leg Venous ulcer of right leg Home Medications furosemide 40 mg tablet 40 mg PO BID 06/24/21 [History Last Taken 09/20/23] lansoprazole 30 mg capsule,delayed release 30 mg PO DAILY 06/24/21 [History Last Taken 09/20/23] losartan 100 mg tablet 100 mg PO DAILY 06/24/21 [History Last Taken 09/20/23] pravastatin 10 mg tablet 10 mg PO DAILY 06/24/21 [History Last Taken 09/20/23] amoxicillin 875 mg-potassium clavulanate 125 mg tablet 1 tab PO BID #8 tabs 09/25/23 [Rx Last Taken Unknown] levofloxacin 750 mg tablet 750 mg PO DAILY #4 tabs 09/25/23 [Rx Last Taken Unknown] Allergy/AdvReac Type Severity Reaction Status Date / Time No Known Allergies Allergy Verified 09/21/23 09:25 Surgical History H/O umbilical hernia repair Social History 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 General Appearance: cooperative, comfortable, well kempt and well developed Orientation / Consciousness: awake, oriented to person, oriented to place and oriented to time HEENT normocephalic, head/scalp atraumatic and hearing grossly normal bilaterally Head and Scalp: normal to inspection, normocephalic and atraumatic Face and Sinus: normal facial exam External Ear: external ears normal Eyes PERRL and EOMs intact bilaterally General Eye: normal appearance of both eyes Resp normal respiratory effort, normal air movement, no retractions and no use of accessory muscles Effort and Inspection: able to speak in complete sentences and symmetric chest movement Extremity no calf tenderness General Extremity: Negative for clubbing or cyanosis Skin Wound Narrative: The swelling and edema in the patient's lower extremities is much improved, and remains at a minimum. Significant healing has occurred at the site of the large right lateral calf ulceration. There has been significant epithelialization. Now, only 1 ulceration remains, which is generally pink and healthy in appearance. Dimensions are documented elsewhere. There is no sign of infection or cellulitis. There is a moderate amount of bioburden. There is mild exfoliation of the epidermis at the site of the previous ulceration, where healing has now occurred. The ulcerations in the patient's left lower extremity have healed and are completely epithelialized. Lipodermatosclerosis and hyperpigmentation are noted in the gaiter areas bilaterally. Neuro oriented x3, CN's II-XII intact bilaterally, moves all extremities and no focal motor deficits Sensorium / Orientation: awake, alert, oriented to person, oriented to place and oriented to time Psych Appearance: grossly normal and appropriate Attitude: calm Activity / Motor Behavior: appropriate eye contact Speech: normal speech Mood & Affect: euthymic mood Thought Process: normal thought process Thought Content: normal thought content Attention / Concentration: attention grossly intact Debridement Note Debridement Note Wound debrided: Right lateral calf Laterality: Right Type of Debridement: Excisional debridement Anesthesia Used: 5% Lidocaine Gel Depth: Down to and including healthy tissue and in the subcutaneous layer Percentage of wound debrided: 100 Instrument Used: 5mm curette Tissue Removed: Bioburden and nonviable tissue Severity: Fat Layer Exposed Amount of bleeding with debridement: Mild Bleeding Controlled with: Compression and gauze Patient tolerated procedure: Patient tolerated procedure well Assessment/Plan Assessment/Plan (1) Lymphedema due to venous disease: CODE(S): I89.0 - Lymphedema, not elsewhere classified; I99.9 - Unspecified disorder of circulatory system (2) Venous ulcer of right leg: CODE(S): I83.019 - Varicose veins of right lower extremity with ulcer of unspecified site; L97.919 - Non-pressure chronic ulcer of unspecified part of right lower leg with unspecified severity (3) Chronic venous hypertension w/ulcer and inflammation involv right side: CODE(S): I87.331 - Chronic venous hypertension (idiopathic) with ulcer and inflammation of right lower extremity (4) Venous ulcer of left leg: CODE(S): I83.029 - Varicose veins of left lower extremity with ulcer of unspecified site; L97.929 - Non-pressure chronic ulcer of unspecified part of left lower leg with unspecified severity (5) Chronic venous hypertension w/ulcer and inflammation involv left side: CODE(S): I87.332 - Chronic venous hypertension (idiopathic) with ulcer and inflammation of left lower extremity (6) Chronic venous hypertension with inflammation involving left side: CODE(S): I87.322 - Chronic venous hypertension (idiopathic) with inflammation of left lower extremity (7) Venous stasis dermatitis of left lower extremity: CODE(S): I87.2 - Venous insufficiency (chronic) (peripheral) (8) Venous hypertension, chronic, with ulcer and inflammation: CODE(S): I87.339 - Chronic venous hypertension (idiopathic) with ulcer and inflammation of unspecified lower extremity; L97.909 - Non-pressure chronic ulcer of unspecified part of unspecified lower leg with unspecified severity QUALIFIERS: Laterality: right Qualified Code(s): I87.331 - Chronic venous hypertension (idiopathic) with ulcer and inflammation of right lower extremity; L97.919 - Non-pressure chronic ulcer of unspecified part of right lower leg with unspecified severity (9) Leg swelling: CODE(S): M79.89 - Other specified soft tissue disorders (10) Leg pain: CODE(S): M79.606 - Pain in leg, unspecified QUALIFIERS: Laterality: bilateral Qualified Code(s): M79.604 - Pain in right leg; M79.605 - Pain in left leg (11) Hyperlipidemia: CODE(S): E78.5 - Hyperlipidemia, unspecified (12) Hypertension: CODE(S): I10 - Essential (primary) hypertension (13) Lipodermatosclerosis: CODE(S): I83.10 - Varicose veins of unspecified lower extremity with inflammation (14) Hyperpigmentation: CODE(S): L81.9 - Disorder of pigmentation, unspecified (15) Morbid obesity: CODE(S): E66.01 - Morbid (severe) obesity due to excess calories (16) H/O umbilical hernia repair: CODE(S): Z98.890 - Other specified postprocedural states; Z87.19 - Personal history of other diseases of the digestive system (17) Chronic venous insufficiency: CODE(S): I87.2 - Venous insufficiency (chronic) (peripheral) PLAN: Plan This is a 53-year-old male with a longstanding history of chronic venous insufficiency, venous hypertension with inflammation and ulceration, and prior episodes of venous stasis ulcerations. He also experiences chronic swelling, edema, and lymphedema in his lower extremities. 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 The patient's occupation prevents him from elevating his lower extremities as recommended. The nature of his occupation requires long periods of idle sitting. A lengthy discussion has been undertaken as to the appropriate conservative treatment measures relative to the patient's presenting symptoms and manifestations. The patient has been treated for numerous weeks relative to the swelling, edema, and ulcerations in his lower extremities. However, the degree of swelling and edema, and the expanding ulcerations in the patient's lower extremities, associated with the development of cellulitis, prompted the patient to be referred to the emergency department for inpatient admission. The patient was admitted to [facility] on September 21, where an inpatient stay transpired for 4 days. During that period of time, the patient was treated with intravenous antibiotics which included Augmentin and Levaquin. The patient was subsequently discharged on oral Augmentin and Cipro, the course of which has now been completed. There continues to be significant improvement in the status of the patient's lower swelling, edema, and ulcerations. The swelling and edema in the lower extremities is minimized, and healing of the patient's ulcerations has been progressive in recent weeks. 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 This will enable him to continue with concerted efforts at leg elevation. 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 We are to continue with conservative treatment measures which include leg elevation, avoidance of idle sitting, activity as tolerated, and compression to the patient's lower extremities by means of CircAid's. The patient has received new CircAid garments, and is to continue wearing on a daily basis. Weight loss has also been recommended. We are to continue with the use of Aquacel Ag topically to the ulceration on the right lateral calf. Aquacel Ag is to be applied on a daily basis. The patient has been instructed in the appropriate means of application. Moisturizing skin lotion is to be applied topically to the intact skin in the gaiter areas bilaterally. We are in the process of attempting to procure pneumatic mechanical compression pumps for the patient's use. The patient is to return in 1 week for reevaluation. Total time: 24 minutes
[2023-11-23 08:01] VITALS: BP 130/71; PULSE 67; RESP 18; TEMP 36.2; BMI 51.7
--- NOTE | 2023-11-23 08:48 | HP.PCM_ITS ---
History of Present Illness Date of Service: 11/23/23 Chief Complaint: Venous stasis dermatitis with swelling and edema bilaterally; venous stasis ulcerations of the lower extremities; bilateral lower extremity lymphedema History of Wound: This is a 53-year-old male with a longstanding history of chronic venous disease. He has previously been treated at this facility for venous stasis ulcerations of both lower extremities. He was most recently treated only several months prior to his current presentation. He presented at this time with bilateral lower extremity swelling, edema, and lymphedema, with venous ulcerations in the lower extremities. Upon his prior discharge, the patient had been instructed in the use of his Velcro compression garments. He had been advised to elevate his lower extremities as much as possible, to heart level, or higher. Efforts had been made to obtain pneumatic mechanical compression pumps, but the patient's insurance did not allow for this benefit. The patient has had chronic venous stasis dermatitis in his lower extremities for several years. 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 His profession requires him to sit for prolonged periods. The patient is morbidly obese. He denies a history of deep vein thrombosis in the past. He claims to sleep on a flat mattress at night. [facility] Medical History Chronic venous hypertension w/ulcer and inflammation involv left side Chronic venous hypertension w/ulcer and inflammation involv right side Chronic venous hypertension with inflammation involving left side Chronic venous insufficiency CPAP (continuous positive airway pressure) dependence GERD (gastroesophageal reflux disease) Hyperlipidemia Hyperpigmentation Hypertension Leg pain Leg swelling Lipodermatosclerosis Lymphedema due to venous disease Morbid obesity Non-smoker Sleep apnea Venous hypertension, chronic, with inflammation Venous hypertension, chronic, with ulcer and inflammation Venous stasis dermatitis of left lower extremity Venous stasis ulcer Venous ulcer of left leg Venous ulcer of right leg Home Medications furosemide 40 mg tablet 40 mg PO BID 06/24/21 [History Last Taken 09/20/23] lansoprazole 30 mg capsule,delayed release 30 mg PO DAILY 06/24/21 [History Last Taken 09/20/23] losartan 100 mg tablet 100 mg PO DAILY 06/24/21 [History Last Taken 09/20/23] pravastatin 10 mg tablet 10 mg PO DAILY 06/24/21 [History Last Taken 09/20/23] amoxicillin 875 mg-potassium clavulanate 125 mg tablet 1 tab PO BID #8 tabs 1 [Rx Last Taken Unknown] levofloxacin 750 mg tablet 750 mg PO DAILY #4 tabs 09/25/23 [Rx Last Taken Unknown] Allergy/AdvReac Type Severity Reaction Status Date / Time No Known Allergies Allergy Verified 09/21/23 09:25 Surgical History H/O umbilical hernia repair Social History 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 General Appearance: cooperative, comfortable, well kempt and well developed Orientation / Consciousness: awake, oriented to person, oriented to place and oriented to time HEENT normocephalic, head/scalp atraumatic and hearing grossly normal bilaterally Head and Scalp: normal to inspection, normocephalic and atraumatic Face and Sinus: normal facial exam External Ear: external ears normal Eyes PERRL and EOMs intact bilaterally General Eye: normal appearance of both eyes Resp normal respiratory effort, normal air movement, no retractions and no use of accessory muscles Effort and Inspection: able to speak in complete sentences and symmetric chest movement Extremity no calf tenderness General Extremity: Negative for clubbing or cyanosis Skin Wound Narrative: The swelling and edema in the patient's lower extremities is much improved, and remains at a minimum. Significant healing has occurred at the site of the large right calf ulceration. There has been significant epithelialization. Now, only 1 ulceration remains, which is generally pink and healthy in appearance. It is clustered, and located on the right colleen-lateral surface. Dimensions are documented elsewhere. There is no sign of infection or cellulitis. There is a moderate amount of bioburden. There has been significant improvement in the exfoliative dermatitis in the right lower extremity. The skin is largely soft and supple, markedly improved in recent weeks. The ulcerations in the patient's left lower extremity have healed and are completely epithelialized. Lipodermatosclerosis and hyperpigmentation are noted in the gaiter areas bilaterally. Neuro oriented x3, CN's II-XII intact bilaterally, moves all extremities and no focal motor deficits Sensorium / Orientation: awake, alert, oriented to person, oriented to place and oriented to time Psych Appearance: grossly normal and appropriate Attitude: calm Activity / Motor Behavior: appropriate eye contact Speech: normal speech Mood & Affect: euthymic mood Thought Process: normal thought process Thought Content: normal thought content Attention / Concentration: attention grossly intact Debridement Note Debridement Note Wound debrided: Right colleen-lateral calf Laterality: Right Type of Debridement: Excisional debridement Anesthesia Used: 5% Lidocaine Gel Depth: Down to and including healthy tissue and in the subcutaneous layer Percentage of wound debrided: 100 Instrument Used: 5mm curette Tissue Removed: Bioburden and nonviable tissue Severity: Fat Layer Exposed Amount of bleeding with debridement: Mild Bleeding Controlled with: Compression and gauze Patient tolerated procedure: Patient tolerated procedure well Post-Debridement Measurements and Additional Note: Post-Debridement Measurements/Treatment - Nurse 1 - General Ulcer Assessment Start: 11/09/23 08:33 Freq: Status: Active Protocol: ELVER.CEM Activity Type Activity Date Activity User E-sign Co-sign Detail Recorded Client Recorded Date Recorded By Document 11/09/23 08:33 MT Desktop 11/09/23 08:40 MT Document 11/16/23 08:07 KW Desktop 11/16/23 08:18 KW Document 11/23/23 08:01 KW Desktop 11/23/23 08:14 KW 11/09/23 11/16/23 11/23/23 08:33 08:07 08:01 - Today's Visit Information Type of service Follow-up Visit Follow-up Visit Follow-up Visit (Physician/COUPON COLLECTION CLERK (Physician/COUPON COLLECTION CLERK (Physician/COUPON COLLECTION CLERK ) ) ) Arrival Mode Ambulatory Ambulatory Ambulatory Accompanied by self Patient Identification Verified (Name & Yes Yes Yes ) Height and Weight Body Mass Index (BMI) 51.7 51.7 51.7 BMI Classification Obese Obese Obese Vital Signs Temperature (97.8 F-99.1 F) 97 F L 96.8 F L 97.1 F L Temperature Source Temporal Temporal Temporal Pulse Rate (60-100) 71 63 67 Pulse Location Monitor Monitor Monitor Respiratory Rate (12-18) 20 H 18 18 Respiratory rate source Observation Observation Observation Oxygen Delivery Method Room Air Room Air Room Air Blood Pressure (90/60-120/80) 133/47 H 134/62 H 130/71 H Blood Pressure Mean 75 86 90 Source Monitor Monitor Monitor Position Sitting Sitting Semi-Fowlers Blood Pressure Location Left Arm Left Arm Left Arm History Since Last Visit- (Skip if this is Patient's initial visit) Have you changed medications since your No No last visit? Any new allergies or adverse reactions No No Had a fall/change in ADL's that may No No increase risk of falls Signs or symptoms of abuse and/or No No neglect since last visit Have you been in the hospital since your No No last visit? Has dressing in place as prescribed Yes Yes Yes Has compression in place as prescribed Yes Yes Yes Has offloadiing in place as prescribed N/A No No Experienced any changes in pain level or No No No management Left Footwear Regular Shoe Regular Shoe Regular Shoe Right Footwear Regular Shoe Regular Shoe Regular Shoe Pain Scale: 0-10 Numeric Is Patient Pain Free? Yes Yes Yes WC - Nurse 1 - General Ulcer Measurement Start: 11/09/23 08:33 Freq: Status: Active Protocol: Activity Type Activity Date Activity User E-sign Co-sign Detail Recorded Client Recorded Date Recorded By Document 11/09/23 08:33 MT [employer] 11/09/23 08:40 MT Document 11/16/23 08:07 KW Desktop 11/16/23 08:18 KW Document 11/23/23 08:01 KW Desktop 11/23/23 08:14 KW 11/09/23 11/16/23 11/23/23 08:33 08:07 08:01 Wound Center Nurse 1 4. LLE post -Wound Comment(s) healed #8 RLE POST CLUSTER -Current Size (cm) - Length 3.9 6.7 -Current Size (cm) - Width 0.3 5.8 -Current Size (cm) - Depth 0.1 0.1 -Total Square Cm 1.17 38.86 -Exudate Amt Medium Medium -Exudate Type Serosanguineous Serosanguineous -Wound Margin Distinct, Distinct, Outline Outline Attached Attached -Granulation Amt Large (67-100%) Medium (34-66%) -Granulation Quality Red Red -Necrosis Amt Small (1-33%) -Necrotic Tissue Type Adherent Slough -Texture (Earlene-wound Skin Appearance) Assessed Assessed -Moisture (Earlene-wound Skin Appearance) Assessed Assessed -Color (Earlene-wound Skin Appearance) Assessed Erythema -Ulcer Cleansing Rinsed/ Soap and Water Irrigated with Saline -Anesthetic Used 5% Lidocaine 5% Lidocaine Gel Gel 7. RLE anterior -Combined with other wound No -Current Size (cm) - Length 2 7.5 0.1 -Current Size (cm) - Width 1.5 5 0.1 -Current Size (cm) - Depth 0.1 0.2 0.1 -Total Square Cm 3.0 37.5 0.01 -Photo Taken No -Tunneling No -Undermining/Tunneling No -Circular Undermining No -Change in Wound Grade/Stage No -Exudate Amt Medium Medium -Exudate Type Sanguineous Serosanguineous -Wound Margin Flat & Intact Distinct, Outline Attached -Granulation Amt Large (67-100%) Medium (34-66%) -Granulation Quality Pale,[place] Red -Necrosis Amt None Present (0 Small (1-33%) %) -Necrotic Tissue Type Adherent Slough -Texture (Earlene-wound Skin Appearance) Assessed Assessed -Moisture (Earlene-wound Skin Appearance) Assessed Assessed -Color (Earlene-wound Skin Appearance) Assessed, Assessed Erythema, Hemosiderin Staining -Temperature (Earlene-wound Skin No Abnormality No Abnormality Appearance) (Pt Warm) (Pt Warm) -Tenderness on Palpation (Earlene-wound No Skin Appearance) -Ulcer Cleansing Soap and Water Rinsed/ Irrigated with Saline -Foul Odor after Cleansing No -Anesthetic Used 5% Lidocaine 5% Lidocaine Gel Gel -Wound Comment(s) scabbed Right Calf (cm) 48.0 46.5 Right Ankle (cm) 23.9 Point of Measurement (cm from the medial 27.0 instep) Left Calf (cm) 48 WC - Nurse 2 - General Ulcer CM Notes Start: 11/09/23 08:33 Freq: Status: Active Protocol: Activity Type Activity Date Activity User E-sign Co-sign Detail Recorded Client Recorded Date Recorded By Document 11/09/23 12:51 PL [id number] 11/09/23 12:51 PL Document 11/16/23 08:56 PL [id number] 11/16/23 08:58 PL Edit Result 11/16/23 08:56 PL (1) [id number] 11/16/23 09:01 PL (1) 7. RLE anterior - Post Debridement (cm) - Length 5.3 => 7.5 - Post Debridement (cm) - Width 1.6 => 5.0 - Post Debridement (cm) - Depth 0.4 => 0.2 - Total Square (Post) (cm) 8.48 => 37.50 - Area of Debridement (cm) - Length 5.3 => 7.5 - Area of Debridement (cm) - Width 1.6 => 5.0 - Total Square (Area) (cm) 8.48 => 37.50 - Debridement, SubQ, ea addt'l 20sq cm 2 => or part thereof 11/09/23 11/16/23 12:51 08:56 Wound Center Nurse 2 #8 RLE POST CLUSTER -Time 08:25 -Correct Patient Yes -Correct Side, Site, Position Yes -Correct Procedure Yes -Procedure Performed Yes -Type of Procedure Debridement -Clinical Debridement Subcutaneous -Tissue Removed Subcutaneous -Post Debridement (cm) - Length 3.9 -Post Debridement (cm) - Width 0.8 -Post Debridement (cm) - Depth 0.1 -Total Square (Post) (cm) 3.12 -Area of Debridement (cm) - Length 3.9 -Area of Debridement (cm) - Width 0.8 -Total Square (Area) (cm) 3.12 -Tunneling No -Undermining/Tunneling No -Circular Undermining No -Wound/Ulcer Outcome Not Healed -Ulcer Cleansing Rinsed/ Irrigated with Saline -Foul Odor after Cleansing No -Bioengineered Tissue No -Bleeding Controlled with Pressure -Treatment Response Procedure Tolerated Well -Debridement - Subq, 1st 20sq cm No 7. RLE anterior -Time 08:21 08:35 -Correct Patient Yes Yes -Correct Side, Site, Position Yes Yes -Correct Procedure Yes Yes -Procedure Performed Yes Yes -Type of Procedure Debridement Debridement -Clinical Debridement Subcutaneous Subcutaneous -Tissue Removed Subcutaneous Subcutaneous -Post Debridement (cm) - Length 2.0 7.5 -Post Debridement (cm) - Width 1.5 5.0 -Post Debridement (cm) - Depth 0.1 0.2 -Total Square (Post) (cm) 3.00 37.50 -Area of Debridement (cm) - Length 2.0 7.5 -Area of Debridement (cm) - Width 1.5 5.0 -Total Square (Area) (cm) 3.00 37.50 -Tunneling No No -Undermining/Tunneling No No -Circular Undermining No No -Wound/Ulcer Outcome Not Healed Not Healed -Ulcer Cleansing Rinsed/ Rinsed/ Irrigated with Irrigated with Saline Saline -Foul Odor after Cleansing No No -Bioengineered Tissue No No -Bleeding Controlled with Pressure Pressure -Treatment Response Procedure Procedure Tolerated Well Tolerated Well -Debridement - Subq, 1st 20sq cm Yes Yes Pain Scale: 0-10 Numeric Is Patient Pain Free? Yes Yes WC - Nurse 3 - General Ulcer D/C NN Start: 11/09/23 08:33 Freq: Status: Active Protocol: Activity Type Activity Date Activity User E-sign Co-sign Detail Recorded Client Recorded Date Recorded By Document 11/09/23 08:33 MT Desktop 11/09/23 08:40 MT Document 11/16/23 08:41 RB Desktop 11/16/23 08:42 RB Document 11/23/23 08:47 KW Desktop 11/23/23 08:47 KW 11/09/23 11/16/23 11/23/23 08:33 08:41 08:47 Vital Signs Temperature (97.8 F-99.1 F) 97 F L Temperature Source Temporal Pulse Rate (60-100) 71 Pulse Location Monitor Respiratory Rate (12-18) 20 H Respiratory rate source Observation Oxygen Delivery Method Room Air Blood Pressure (90/60-120/80) 133/47 H Blood Pressure Mean 75 Source Monitor Position Sitting Blood Pressure Location Left Arm Pain Scale: 0-10 Numeric Is Patient Pain Free? Yes Yes Yes Teaching: Wound Center Control Swelling with Leg Elevation -Person Taught Patient -Teaching Method Discussion, Demonstration -Response to teaching Verbalize understanding Wound Care Center Nurse 3 #8 RLE POST CLUSTER -Ulcer Cleansing Rinsed/ Irrigated with Saline -Other Dressing aquacel AG -Primary Dressing Covered/Secured with Dry Gauze,Dry Dry Gauze & Gauze & Roll Roll Gauze, Gauze,Secured Secured with with Tape Tape 7. RLE anterior -Ulcer Cleansing Rinsed/ Rinsed/ Irrigated with Irrigated with Saline Saline -Other Dressing pt brought in [employer] own supplies -Primary Dressing Covered/Secured with Dry Gauze, Dry Gauze,Dry Secured with Gauze & Roll Tape Gauze,Secured with Tape Right -Other pt has own circaid circaid Left -Other pt has own circaid circaid Treatment Response Procedure Tolerated Well WC - Visit Discharge Discharge Condition Stable Stable Ambulatory Status Ambulatory Ambulatory Transportation Private Auto Private Auto Medication Reconcilliation completed & No No provided to patient/care provider Clinical Summary of Care Provided Yes Yes Assessment/Plan Assessment/Plan (1) Lymphedema due to venous disease: CODE(S): I89.0 - Lymphedema, not elsewhere classified; I99.9 - Unspecified disorder of circulatory system (2) Venous ulcer of right leg: CODE(S): I83.019 - Varicose veins of right lower extremity with ulcer of unspecified site; L97.919 - Non-pressure chronic ulcer of unspecified part of right lower leg with unspecified severity (3) Chronic venous hypertension w/ulcer and inflammation involv right side: CODE(S): I87.331 - Chronic venous hypertension (idiopathic) with ulcer and inflammation of right lower extremity (4) Venous ulcer of left leg: CODE(S): I83.029 - Varicose veins of left lower extremity with ulcer of unspecified site; L97.929 - Non-pressure chronic ulcer of unspecified part of left lower leg with unspecified severity (5) Chronic venous hypertension w/ulcer and inflammation involv left side: CODE(S): I87.332 - Chronic venous hypertension (idiopathic) with ulcer and inflammation of left lower extremity (6) Chronic venous hypertension with inflammation involving left side: CODE(S): I87.322 - Chronic venous hypertension (idiopathic) with inflammation of left lower extremity (7) Venous stasis dermatitis of left lower extremity: CODE(S): I87.2 - Venous insufficiency (chronic) (peripheral) (8) Venous hypertension, chronic, with ulcer and inflammation: CODE(S): I87.339 - Chronic venous hypertension (idiopathic) with ulcer and inflammation of unspecified lower extremity; L97.909 - Non-pressure chronic ulcer of unspecified part of unspecified lower leg with unspecified severity QUALIFIERS: Laterality: right Qualified Code(s): I87.331 - Chronic venous hypertension (idiopathic) with ulcer and inflammation of right lower extremity; L97.919 - Non-pressure chronic ulcer of unspecified part of right lower leg with unspecified severity (9) Leg swelling: CODE(S): M79.89 - Other specified soft tissue disorders (10) Leg pain: CODE(S): M79.606 - Pain in leg, unspecified QUALIFIERS: Laterality: bilateral Qualified Code(s): M79.604 - Pain in right leg; M79.605 - Pain in left leg (11) Hyperlipidemia: CODE(S): E78.5 - Hyperlipidemia, unspecified (12) Hypertension: CODE(S): I10 - Essential (primary) hypertension (13) Lipodermatosclerosis: CODE(S): I83.10 - Varicose veins of unspecified lower extremity with inflammation (14) Hyperpigmentation: CODE(S): L81.9 - Disorder of pigmentation, unspecified (15) Morbid obesity: CODE(S): E66.01 - Morbid (severe) obesity due to excess calories (16) H/O umbilical hernia repair: CODE(S): Z98.890 - Other specified postprocedural states; Z87.19 - Personal history of other diseases of the digestive system (17) Chronic venous insufficiency: CODE(S): I87.2 - Venous insufficiency (chronic) (peripheral) PLAN: Plan This is a 53-year-old male with a longstanding history of chronic venous insufficiency, venous hypertension with inflammation and ulceration, and prior episodes of venous stasis ulcerations. He also experiences chronic swelling, edema, and lymphedema in his lower extremities. 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 The patient's occupation prevents him from elevating his lower extremities as recommended. The nature of his occupation requires long periods of idle sitting. A lengthy discussion has been undertaken as to the appropriate conservative treatment measures relative to the patient's presenting symptoms and manifestations. The patient has been treated for numerous weeks relative to the swelling, edema, and ulcerations in his lower extremities. However, the degree of swelling and edema, and the expanding ulcerations in the patient's lower extremities, associated with the development of cellulitis, prompted the patient to be referred to the emergency department for inpatient admission. The patient was admitted to [facility] [place] on September 21, where an inpatient stay transpired for 4 days. During that period of time, the patient was treated with intravenous antibiotics which included Augmentin and Levaquin. The patient was subsequently discharged on oral Augmentin and Cipro, the course of which has now been completed. There continues to be significant improvement in the status of the patient's lower swelling, edema, and ulcerations. The swelling and edema in the lower extremities is minimized, and healing of the patient's ulcerations has been progressive in recent weeks. 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 This will enable him to continue with concerted efforts at leg elevation. 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 We are to continue with conservative treatment measures which include leg elevation, avoidance of idle sitting, activity as tolerated, and compression to the patient's lower extremities by means of CircAid's. The patient has received new CircAid garments, and is to continue wearing on a daily basis. Weight loss has also been recommended. We are to continue with the use of Aquacel Ag topically to the ulceration on the right lateral calf. Aquacel Ag is to be applied on a daily basis. The patient has been instructed in the appropriate means of application. Moisturizing skin lotion is to be applied topically to the intact skin in the gaiter areas bilaterally. We are in the process of attempting to procure pneumatic mechanical compression pumps for the patient's use. We are to seek preauthorization for the use of an EpiFix allograft on the remaining portions of the patient's right calf ulceration. The patient is to return in 1 week for reevaluation. Total time: 25 minutes
== END 2023-11-28 23:59 | disposition home or self-care (01) ==
LOC: WC 08:15
PROVIDERS: PCP Nurse Practitioner Family; Referring Provider Surgery; Visit Provider Surgery
DX: I83.212 Varicose veins of right lower extremity with both ulcer of calf and inflammation (principal); L97.212 Non-pressure chronic ulcer of right calf with fat layer exposed; E66.01 Morbid (severe) obesity due to excess calories; Z68.43 Body mass index [BMI] 50.0-59.9, adult; E78.5 Hyperlipidemia, unspecified; I89.0 Lymphedema, not elsewhere classified; I10 Essential (primary) hypertension; K21.9 Gastro-esophageal reflux disease without esophagitis; Z79.899 Other long term (current) drug therapy
CPT/HCPCS: 11042; 11045

== ENCOUNTER → 2023-12-20 | Outpatient (CLI) | payer BC, SELFPAY ==
--- OUTSIDE RECORDS SUMMARY | 2023-12-20 09:14 | XMS RPT_ITS | CCD ---
Author Name Unknown Address [address] [place] [address] Organization [facility] Care Team Providers Care Ton Cylinder Inspector Name Role Phone BLAYNE COSTELLO Primary Care Unavailable MAMADOU TILLMAN Admitting Unavailable MAMADOU TILLMAN Attending Unavailable Andrey Monsivais [phone] Consulting BLAYNE Perez Consulting Unavailable SHAYLA OLIVAS Consulting Unavailable MARISA MICHEL Consulting Unavailable MAMADOU TILLMAN Consulting Unavailable BLAYNE WALL Consulting Unavailable HALI ERNST Consulting Unavailable Isaiah Terrazas [phone] Consulting U BEATRICE Zuniga Consulting Unavailable Lupe, Physician Primary Care Provider Unavailabl e MAMADOU TILLMAN S. AEzequiel Referring Unavailab sylvia CAMACHO, PHYSICIAN Primary Care Unavailable [facility] Consulting U KASSIE Rossi Admitting Unavailabl DEBORA Bolton Attending Unavailable MIKAELA GALEAS Consulting Unavailable HERMAN MCCORMACK Consulting Unavailable ARJUN ALCANTAR Consulting Unavail able ROBI CHASE Consulting Unavailable Blayne Costello Primary Care Provider Blayne Costello Primary Care Provider [phone] BLAYNE COSTELLO Primary Care Unavailable CRASKE III, W. DON Admitting Unavailable BLAYNE COSTELLO Primary Care Unavailable CRASKE III, W. DON Admitting Unavailable CRASKE III, W. DON Attending Unavailable CRASKE III, W. DON Admitting Unavailable BLAYNE COSTELLO Primary Care Unavailable CRASKE III, W. DON Attending Unavailable BLAYNE MENJIVAR Referring Unavailable BLAYNE COSTELLO Primary Care Unavailable CRASKE III, W. DON Admitting Unavailable CRASKE III, W. DON Attending Unavailable BLAYNE COSTELLO Primary Care Unavailable BLAYNE COSTELLO Referring Unavailable Manuel LOCKETT III Admitting Unavailable Manuel LOCKETT III Attending Unavailable BLAYNE COSTELLO Primary Care Unavailable RYNE CURRAN Attending Unavailable RYNE CURRAN Referring Unavailable BLAYNE COSTELLO Primary Care Unavailable LEVY III, Manuel SHEARER Admitting Unavailable LEVY MARTINEZ, Manuel SHEARER Attending Unavailable Lorie Corrales CNP Primary Care Provider SILVER WILLS II Attending Unavailabl e LORIE CORRALES Primary Care Unavailable Medications Current Medications Medication Drug Class(es) Dates Sig (Normalized) Sig (Original) Flaxseed extract (8 sources) Non-Standardized Food Allergenic Extract, Non-Standardized Plant Allergenic Extract take 1 capsule by mouth once daily FLAXSEED ORAL Take 1 capsule by mouth daily . 0 Active furosemide 40 mg oral tablet (8 sources) Loop Diuretic Start: 06-15-2022 End: 11-09-2019 furosemide 40 mg oral tablet Dose : 40 mg = 1 tab(s), Oral, Daily, 0 Refill(s) Start Date: 06/15/22 Status: Ordered Completed/Discontinued Medications Medication Drug Class(es) Dates Sig (Normalized) Sig (Original) acetaminophen 325 mg oral tablet (1 source) Start: 11-04-2019 End: 11-10-2019 take 1 tablet by mouth every four hours as needed 650 mg, Oral, Every 4 hours PRN, mild pain, fever 100.4 F or greater, headaches, Starting 11/04/19 at 1531 alteplase (CATH SHIRLEY) injection 2 mg (1 source) Start: 11-04-2019 End: 11-10-2019 alteplase (CATH SHIRLEY) injection 2 mg aluminum hydroxide 40 mg/ml / magnesium hydroxide 40 mg/ml / simethicone 4 mg/ml oral suspension (1 source) Start: 11-04-2019 End: 11-10-2019 take 30 mL by mouth every four hours as needed 30 mL, Oral, Every 4 hours PRN, indigestion, Starting 11/04/19 at 1531 amLODIPine 5 mg oral tablet (1 source) Dihydropyridine Calcium Channel Vera take 1 tablet by mouth once daily amLODIPine (NORVASC) 5 mg tablet Take 5 mg by mouth once daily. 0 Active Problems Active Problems Problem Classification Problem Date Documented Da te Episodic/Chronic Blindness and vision defects (6 sources) Bilateral hyperopia of eyes; Translations: [Hypermetropia, bilateral] Onset: 11-14-2014 Episodic Glaucoma (2 sources) Preglaucoma, unspecified, bilateral; Translations: [Preglaucoma, unspecified] Onset: 11-21-2015 Chronic Neoplasms of unspecified nature or uncertain behavior (1 source) Monoclonal gammopathy of uncertain significance; Translations: [MGUS (monoclonal gammopathy of unknown significance)] Chronic Other diseases of veins and lymphatics (11 sources) Stasis dermatitis; Translations: [Venous stasis dermatitis of both lower extremities] Onset: 11-20-2020 11-20-2020 Episodic Other nutritional; endocrine; and metabolic disorders (11 sources) Body mass index 40+ - severely obese; Translations: [Morbid obesity with BMI of 45.0-49.9, adult ([facility])] Onset: 11-20-2020 11-20-2020 Chronic Superficial injury; contusion (11 sources) Abrasion, right lower leg, initial encounter; Translations: [Abrasion, right lower leg, subsequent encounter] Onset: 11-27-2020 11-27-2020 Episodic Past or Other Problems Problem Classification Problem Date Documented Da te Episodic/Chronic Chronic ulcer of skin (9 sources) Skin ulcer of calf ; Translations: [Ulcer of left calf, limited to breakdown of skin ([facility])] Onset: 11-20-2020 Resolved: 12-11-2020 11-20-2020 Chronic Skin and subcutaneous tissue infections (12 sources) Cellulitis of left lower limb; Translations: [Cellulitis of lower limb] Onset: 11-01-2019 Resolved: 11-27-2020 11-04-2019 Episodic Results Test Name Value Interpretation Reference Range [facility] Vital Signs Date Time Vital Sign Value Performing Clinician Facility 06-15-2022 09:48-0400 Diastolic blood pressure 85 mm[Hg] DR DEISY VILLALOBOS MD [facility] 06-15-2022 09:48-0400 Heart rate 64 /min DR DEISY VILLALOBOS MD [facility] 06-15-2022 09:48-0400 Respiratory rate 15 /min DR DEISY VILLALOBOS MD [facility] 06-15-2022 09:48-0400 Systolic blood pressure 134 mm[Hg] DR DEISY VILLALOBOS MD [facility] 06-15-2022 09:44-0400 Diastolic blood pressure 68 mm[Hg] DR DEISY VILLALOBOS MD [facility] 06-15-2022 09:44-0400 Heart rate 65 /min DR DEISY VILLALOBOS MD [facility] 06-15-2022 09:44-0400 Respiratory rate 20 /min DR DEISY VILLALOBOS MD [facility] 06-15-2022 09:44-0400 Systolic blood pressure 120 mm[Hg] DR DEISY VILLALOBOS MD [facility] 06-15-2022 09:29-0400 Diastolic blood pressure 66 mm[Hg] DR DEISY VILLALOBOS MD [facility] 06-15-2022 09:29-0400 Heart rate 59 /min DR DEISY VILLALOBOS MD [facility] 06-15-2022 09:29-0400 Respiratory rate 19 /min DR DEISY VILLALOBOS MD [facility] 06-15-2022 09:29-0400 Systolic blood pressure 99 mm[Hg] DR DEISY VILLALOBOS MD [facility] 06-15-2022 09:20-0400 Diastolic Blood Pressure NBP [address] DEISY VILLALOBOS MD [facility] 06-15-2022 09:20-0400 Systolic Blood Pressure NBP [address] DEISY VILLALOBOS MD [facility] 06-15-2022 09:15-0400 Diastolic Blood Pressure NBP [address] DEISY VILLALOBOS MD [facility] 06-15-2022 09:15-0400 Systolic Blood Pressure NBP [address] DEISY VILLALOBOS MD [facility] 06-15-2022 09:10-0400 Diastolic Blood Pressure NBP [address] DEISY VILLALOBOS MD [facility] 06-15-2022 09:10-0400 Systolic Blood Pressure NBP [address] DEISY VILLALOBOS MD [facility] 06-15-2022 07:57-0400 Body height [address] DEISY VILLALOBOS MD [facility] 06-15-2022 07:57-0400 Body temperature 98.24 [degF] DR DEISY VILLALOBOS MD [facility] 06-15-2022 07:57-0400 Body weight [address] DEISY VILLALOBOS MD [facility] 06-15-2022 07:57-0400 Body weight 50.75 kg/m2 DR DEISY VILLALOBOS MD [facility] 06-15-2022 07:57-0400 diastolic 58 mm[Hg] DR DEISY VILLALOBOS MD [facility] 06-15-2022 07:57-0400 Heart rate 66 /min DR DEISY VILLALOBOS MD [facility] 06-15-2022 07:57-0400 systolic 118 mm[Hg] DR DEISY VILLALOBOS MD [facility] 12-25-2020 07:11-0500 Body Temperature 97 [degF] [facility] 12-25-2020 07:11-0500 BP Diastolic 75 mm[Hg] [facility] 12-25-2020 07:11-0500 BP Systolic 169 mm[Hg] [facility] 12-25-2020 07:11-0500 Pulse (Heart Rate) 74 /min [facility] 12-25-2020 07:11-0500 Respiratory Rate 16 /min [facility] 12-11-2020 07:21-0500 Body Temperature 98.29 [degF] [facility] 12-11-2020 07:21-0500 BP Diastolic 76 mm[Hg] [facility] 12-11-2020 07:21-0500 BP Systolic 117 mm[Hg] [facility] 12-11-2020 07:21-0500 Pulse (Heart Rate) 65 /min [facility] 12-11-2020 07:21-0500 Pulse Oximetry 96 % [facility] 12-11-2020 07:21-0500 Respiratory Rate 16 /min [facility] 12-04-2020 07:49-0500 BMI (Body Mass Index) 50.95 kg/m2 [facility] 12-04-2020 07:49-0500 Body weight 156.49 kg [facility] 12-04-2020 07:49-0500 Height 175.3 cm [facility] 12-04-2020 07:23-0500 Body Temperature 97.3 [degF] [facility] 12-04-2020 07:23-0500 BP Diastolic 73 mm[Hg] [facility] 12-04-2020 07:23-0500 BP Systolic 173 mm[Hg] [facility] 12-04-2020 07:23-0500 Pulse (Heart Rate) 73 /min [facility] 12-04-2020 07:23-0500 Respiratory Rate 16 /min [facility] 11-27-2020 07:21-0500 Body Temperature 97.59 [degF] [facility] 11-27-2020 07:21-0500 BP Diastolic 76 mm[Hg] [facility] 11-27-2020 07:21-0500 BP Systolic 161 mm[Hg] [facility] 11-27-2020 07:21-0500 Pulse (Heart Rate) 64 /min Ezequiel [facility] 11-27-2020 07:21-0500 Respiratory Rate 18 /min Manuel [facility] 11-20-2020 07:12-0500 BMI (Body Mass Index) 50.98 kg/m2 [facility]equ[facility] 11-20-2020 07:12-0500 Body Temperature 98.1 [degF] Manuel [facility] 11-20-2020 07:12-0500 Body weight 156.58 kg Ezequiel [facility] 11-20-2020 07:12-0500 BP Diastolic 69 mm[Hg] [facility] 11-20-2020 07:12-0500 BP Systolic 140 mm[Hg] [facility] 11-20-2020 07:12-0500 Pulse (Heart Rate) 55 /min [facility] 11-20-2020 07:12-0500 Respiratory Rate 16 /min Ezequiel [facility] 11-09-2019 20:27-0500 Respiratory Rate 16 /min [place] [facility] 20:19-0500 Body Temperature 97.5 [degF] Harsh Ballard [facility] 11-09-2019 20:19-0500 BP Diastolic 72 mm[Hg] [facility] 11-09-2019 20:19-0500 BP Systolic 127 mm[Hg] [facility] 11-09-2019 20:19-0500 Pulse (Heart Rate) 77 /[facility] 11-09-2019 20:19-0500 Pulse Oximetry 97 % Harsh Ballard [facility] 11-04-2019 13:48-0500 BMI (Body Mass Index) 57.59 kg/m2 Harsh Ballard [facility] 11-04-2019 13:48-0500 Body weight 176.9 kg Harsh Ballard [facility] 11-04-2019 13:48-0500 Height 175.3 cm Harsh Ballard [facility] Encounters Encounter Date Encounter Type Care Provider Facility Start: 12-31-2022 End: 12-31-2022 ambulatory SILVER KELLYKAPIL NOVAK Facility:[facility] Start: 12-31-2022 End: 12-31-2022 Patient encounter procedure Silver Wills OD Work Phone: Optometry Procedures Date Procedure Procedure Detail Performing Clinician Start: 12-18-2020 Appl mltlayr ozzy leg below knee w/ankle foot W. Don Craske Work Phone: Start: 12-11-2020 Appl mltlayr ozzy leg below knee w/ankle foot W. Don Craske Work Phone: Start: 12-04-2020 Appl mltlayr ozzy leg below knee w/ankle foot W. Don Craske Work Phone: Start: 11-27-2020 Appl mltlayr zozy leg below knee w/ankle foot W. Don Craske Work Phone: Start: 11-20-2020 Appl mltlayr ozzy leg below knee w/ankle foot W. Don Craske Work Phone: Start: 01-17-2020 X-ray: skeletal survey NOS External Transcribed Start: 11-09-2019 Complete blood count with white cell differential, automated Debora Smith Work Phone: Start: 11-09-2019 Complete blood count with white cell differential, manual Deboraderrick Lopesnar Work Phone: Start: 11-09-2019 Manual Differential panel - Blood Debora Smith Work Phone: Start: 11-09-2019 Peripheral blood sme ar interpretation Debora Smith Work Phone: Start: 11-09-2019 Red blood cell morphology Debora Smith Work Phone: Start: 11-08-2019 Basic metabolic 1998 panel - Serum or Plasma Emeterio Kim Work Phone: Start: 11-08-2019 Complete blood count with white cell differential, automated Debora Smith Work Phone: Start: 11-08-2019 Complete blood count with white cell differential, manual Debora Smith Work Phone: Start: 11-08-2019 Manual Differential panel - Blood Debora Smith Work Phone: Start: 11-08-2019 Red blood cell morphology Debora Smith Work Phone: Start: 11-07-2019 Electrolytes 3 panel - Urine Sadia Calvin Work Phone: Start: 11-07-2019 Basic metabolic 1998 panel - Serum or Plasma Emeterio Hernandezh Kim Work Phone: Start: 11-07-2019 Complete blood count (hemogram) panel - Blood by Automated count Emeterio Hernandezh Kim Work Phone: Start: 11-07-2019 Complete blood count with white cell differential, automated Debora Smith Work Phone: Start: 11-07-2019 Complete blood count with white cell differential, manual Debora Smith Work Phone: Start: 11-06-2019 Ultrasonography of retroperitoneum Bhairavi Ross Kim Work Phone: Start: 11-06-2019 Basic metabolic 1998 panel - Serum or Plasma Emeterio Hernandezh Kim Work Phone: Start: 11-06-2019 Complete blood count (hemogram) panel - Blood by Automated count Ugoairavi Ross Kim Work Phone: Start: 11-06-2019 Complete blood count with white cell differential, automated Mikaela Rosa Elena Zilioli Work Phone: Start: 11-06-2019 Complete blood count with white cell differential, manual Mikaela Rosa Elena Zilioli Work Phone: Start: 11-06-2019 Manual Differential panel - Blood Mikaela Rosa Elena Zilioli Work Phone: Start: 11-06-2019 Red blood cell morphology Mikaela Galeas Work Phone: Start: 11-05-2019 MEAGHAN measurement Wendy Rodriguez Work Phone: Start: 11-05-2019 C>3< complement assay J fuentes Rodriguez Work Phone: Start: 11-05-2019 C>4< complement assay J fuentes Rodriguez Work Phone: Start: 11-05-2019 Hepatitis antibody test Wendy Rodriguez Work Phone: Start: 11-05-2019 Hepatitis B core ant ibody measurement Wendy Rodriguez Work Phone: Start: 11-05-2019 Hepatitis B surface antibody measurement Wendy Rodriguez Work Phone: Start: 11-05-2019 Hepatitis B surface antigen measurement Wendy Rodriguez Work Phone: Start: 11-05-2019 Hepatitis C antibody measurement Wendy Rodriguez Work Phone: Start: 11-05-2019 Human immunodeficien cy virus test Wendy Rodriguez Work Phone: Start: 11-05-2019 Serum IgG IF anti-ne utrophil cytoplasmic antibody measurement Wendy Rodriguez Work Phone: Start: 11-05-2019 Treponema pallidum I gG Ab [Presence] in Serum Wendy Rodriguez Work Phone: Start: 11-05-2019 End: 11-05-2019 Complete blood count with white cell differential, automated Wendy Rodriguez Work Phone: Start: 11-05-2019 End: 11-05-2019 Complete blood count with white cell differential, manual Wendy Rodriguez Work Phone: Start: 11-05-2019 Hepatic function 200 0 panel - Serum or Plasma Wendy Rodriguez Work Phone: Start: 11-05-2019 Dup-scan xtr veins c omplete bilateral study Kassie Lloyd Work Phone: Start: 11-05-2019 Protein/Creatinine [ Ratio] in Urine Kassie Lloyd Work Phone: Start: 11-05-2019 Eosinophils [Presenc e] in Urine sediment by Light microscopy Emeterio Kim Work Phone: Start: 11-05-2019 Urinalysis Kassie Lloyd Work Phone: Start: 11-05-2019 Complete blood count (hemogram) panel - Blood by Automated count Kassie Lloyd Work Phone: Start: 11-05-2019 Comprehensive metabo lic 2000 panel - Serum or Plasma Kassie Lloyd Work Phone: Start: 11-05-2019 Magnesium [Mass/volu me] in Serum or Plasma Kassie Lloyd Work Phone: Start: 11-05-2019 Manual Differential panel - Blood Emeterio Kim Work Phone: Start: 11-05-2019 Red blood cell morphology [employer] Kim Work Phone: Start: 11-05-2019 Vancomycin [Mass/vol ume] in Serum or Plasma Yelitza Ferreira Work Phone: Start: 11-04-2019 Radiologic exam ches t single view Dorianmaddison Pineda Work Phone: Start: 11-04-2019 PULSE OXIMETRY CONTINUOUS Ariel Nieves Work Phone: Start: 11-04-2019 Basic metabolic 2000 panel - Serum or Plasma Joe Harsh Pineda Work Phone: Start: 11-04-2019 C reactive protein [Mass/volume] in Serum or Plasma Joe House Edwin Work Phone: Start: 11-04-2019 Complete blood count with white cell differential, automated Joe Pineda Work Phone: Start: 11-04-2019 Complete blood count with white cell differential, manual Joe Pineda Work Phone: Start: 11-04-2019 Erythrocyte sediment ation rate by Westergren method Joe Pineda Work Phone: Start: 11-04-2019 CONN TOP Harsh luis Franasiak Work Phone: Start: 11-04-2019 Hemoglobin A1c/Hemoglobin.total in Blood Kassie Lloyd Work Phone: Start: 11-04-2019 LIGHT BLUE TOP Harsh Mat thew Franasiak Work Phone: Start: 11-04-2019 LIGHT GREEN TOP Harsh Waite tthew Franasiak Work Phone: Start: 11-04-2019 PINK TOP Harsh luis Franasiak Work Phone: Start: 11-04-2019 RAINBOW DRAW Harsh luis Franasiak Work Phone: Start: 11-04-2019 Thyrotropin [Units/v olume] in Serum or Plasma by Detection limit <= 0.005 mIU/L Kassie Lloyd Work Phone: Start: 11-04-2019 12 lead ECG Harsh luis Franasiak Work Phone: Start: 11-04-2019 Magnetic resonance imaging External Transcribed Start: 11-04-2019 Radiographic imaging procedure External Transcribed Plan of Treatment Date Care Activity Detail Author Start: 12-20-2024 OCT OPTIC NERVE CIRR US OU (BOTH EYES) OCT OPTIC NERVE CIRRUS OU (BOTH EYES) OPHT Imaging Routine Glaucoma suspect of both eyes Expected: 12/20/2024 [facility] Work Phone: Immunizations Immunization Date Immunization Notes Care Provider Edyta vang NEGATED: Highlighted row has not occurred!11-08-2019 influenza, injectable, quadrivalent, preservative free Harsh Ballard [facility] NEGATED: Highlighted row has not occurred!11-08-2019 pneumococcal polysaccharide vaccine, 23 valent Harsh Ballard [facility] Payers Date Payer Category Payer Unknown [id number] 2020 Unknown [employer]ERCE [employer] ACCE SS PPO [id number] 2020-Present [phone] [address] [place] [address] PPO [id number] 2019 Unknown ANTHEM JUANEM DI RECTACCESS BLUE (JWQ/JWJ) xxxxxxxxxxxx 2019-Present [id number] 2019 Unknown [id number] 1971 Unknown [id number] 1971 Unknown [id number] 1971 Unknown [id number]. 1971 Unknown [id number]. 1971 Unknown [id number]. 1971 Unknown [id number]. 1971 Unknown [id number]. 1971 Unknown [id number] 1971 Unknown [id number]. 1959 Unknown [id number] Social History Date Type Detail Facility Start: 11-14-2014 End: 11-04-2019 Tobacco smoking status NHIS Never smoker [facility] Start: 11-04-2019 End: 12-25-2020 Alcohol intake Lifetime non-drinker (finding) [facility] Start: 11-04-2019 History SDOH Alcohol Frequency 1 [facility] Start: 1970 Sex Assigned At Not on file [facility] Start: 11-14-2014 End: 11-20-2020 Tobacco use and exposure Never used [facility] Exposure to SARS-CoV -2 (event) Not sure [facility] Tobacco smoking status No Smokin g Status Entered [facility] Sex Assigned At Male [facility] Start: 12-31-2022 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 Stable Intraocular pressure's and nerve appearance today. Repeat OCT and threshold Visual field in one year. No treatment indicated at this time. Discussed need for continued close observation to minimize chance of future vision loss. H52.03 Hyperopia of both eyes H52.4 Presbyopia H52.223 Regular astigmatism of both eyes Comment: Update glasses as desired. Stable parekh. I have confirmed and edited as necessary the relevant ophthalmic history, ROS, and the neuro exam findings as obtained by others. I have seen and examined Jeremy Rosas. I have discussed the case and the management of this patient's care with the Resident/Fellow, if applicable. I also have reviewed and agree with the assessment and plan as stated above and agree with all of its relevant components. Silver Wills II, OD [facility] History of Present illness Narrative 12-31-2022 Silver Wills II, OD - 12/31/2022 8:31 AM EST Note Date & Type Note Facility 12-31-2022 History of Presen t illness Narrative Assessment and Plan H40.003 Glaucoma suspect of both eyes (primary encounter diagnosis) Comment: Glaucoma suspect both eyes due to optic nerve cupping and previously noted NFL anomalies. Stable Intraocular pressure's and nerve appearance today. Repeat OCT and threshold Visual field in one year. No treatment indicated at this time. Discussed need for continued close observation to minimize chance of future vision loss. H52.03 Hyperopia of both eyes H52.4 Presbyopia H52.223 Regular astigmatism of both eyes Comment: Update glasses as desired. Stable parekh. I have confirmed and edited as necessary the relevant ophthalmic history, ROS, and the neuro exam findings as obtained by others. I have seen and examined Jeremy Rosas. I have discussed the case and the management of this patient's care with the Resident/Fellow, if applicable. I also have reviewed and agree with the assessment and plan as stated above and agree with all of its relevant components. Silver Wills II, OD documented in this encounter [facility] Evaluation + Plan note 06-15-2022 Note Date & Type Note Facility [facility]OL[facility] ADMISSION HISTORY AN D PHYSICIAL CHIEF COMPLAINT: HISTORY OF PRESENT ILLNESS: REVIEW OF SYSTEMS: ACTIVE PROBLEMS: (5) GERD (gastroesophageal reflux disease) (105382093) High cholesterol (38710857) HTN (hypertension) (5431961571) Obesity (4095023699) Sleep apnea (989875406) MEDICATIONS: Active Inpt Meds: None Active PRN Meds: None One Time Meds: None Active IV Meds: Lactated Ringers Infusion 1,000 mL (LR 1,000 mL) Start: 06/15/22 8:11:00 EDT, Rate: 50 mL/hr, 06/15/22 8:11:00 EDT ALLERGIES: (1) NKA FAMILY HISTORY: SOCIAL HISTORY: PHYSICAL EXAM: VITALS: [id number](kg) 06/15 07:[id number] 24 Hr Tmax: 36.8 at 06/15 07:57 36 Hr Tmax: 36.8 at 06/15 07:57 Vital Signs are the last 5 in the past 48 hours. Weights display the last 5 within 7 days. Initial Wt: 06/15 159.0 kg 350 lb Current Wt: 06/15 159.0 kg 350 lb GENERAL: HEENT: CARDIOVASCULAR: RESPIRATORY: ABDOMEN: EXREMETIES: NEUROLOGICAL: PSYCHIATRIC: LABS: No 36hr Lab Data DIAGNOSTICS: IMPRESSION: PLAN: History and Physical Update I have examined the patient; reviewed the H&P and there are no changes to the H&P unless noted below. [facility] Hospital Discharge instructions 06-15-2022 Note Date & Type Note Facility 06-15-2022 Hospital Discharg e instructions Patient Education 06/15/2022 09:35:53 Monitored Anesthesia Care, Care After Monitored Anesthesia Care, Care After These instructions provide you with information about caring for yourself after your procedure. Your health care provider may also give you more specific instructions. Your treatment has been planned according to current medical practices, but problems sometimes occur. Call your health care provider if you have any problems or questions after your procedure. What can I expect after the procedure? After your procedure, you may: Feel sleepy for several hours. Feel clumsy and have poor balance for several hours. Feel forgetful about what happened after the procedure. Have poor judgment for several hours. Feel nauseous or vomit. Have a sore throat if you had a breathing tube during the procedure. Follow these instructions at home: For at least 24 hours after the procedure: Have a responsible adult stay with you. It is important to have someone help care for you until you are awake and alert. Rest as needed. Do not: ?Participate in activities in which you could fall or become injured. ?Drive. ?Use heavy machinery. ?Drink alcohol. ?Take sleeping pills or medicines that cause drowsiness. ?Make important decisions or sign legal documents. ?Take care of children on your own. Eating and drinking Follow the diet that is recommended by your health care provider. If you vomit, drink water, juice, or soup when you can drink without vomiting. Make sure you have little or no nausea before eating solid foods. General instructions Take jrjg-tgz-kjdpbfy and prescription medicines only as told by your health care provider. If you have sleep apnea, surgery and certain medicines can increase your risk for breathing problems. Follow instructions from your health care provider about wearing your sleep device: ?Anytime you are sleeping, including during daytime naps. ?While taking prescription pain medicines, sleeping medicines, or medicines that make you drowsy. If you smoke, do not smoke without supervision. Keep all follow-up visits as told by your health care provider. This is important. Contact a health care provider if: You keep feeling nauseous or you keep vomiting. You feel light-headed. You develop a rash. You have a fever. Get help right away if: You have trouble breathing. Summary For several hours after your procedure, you may feel sleepy and have poor judgment. Have a responsible adult stay with you for at least 24 hours or until you are awake and alert. This information is not intended to replace advice given to you by your health care provider. Make sure you discuss any questions you have with your health care provider. Document Released: 03/07/2017 Document Revised: 02/13/2019 Document Reviewed: 03/07/2017 [employer] Patient Education 2020 [employer] 06/15/2022 09:35:53 Colonoscopy, Adult, Bxan-se-Epba Colonoscopy, Adult A colonoscopy is an exam to look at the large intestine. It is done to check for problems, such as: Lumps (tumors). Growths (polyps). Swelling (inflammation). Bleeding. What happens before the procedure? Eating and drinking Follow instructions from your doctor about eating and drinking. These instructions may include: A few days before the procedure follow a low-fiber diet. ?Avoid nuts. ?Avoid seeds. ?Avoid dried fruit. ?Avoid raw fruits. ?Avoid vegetables. 1 3 days before the procedure follow a clear liquid diet. Avoid liquids that have red or purple dye. Drink only clear liquids, such as: ?Clear broth or bouillon. ?Black coffee or tea. ?Clear juice. ?Clear soft drinks or sports drinks. ?Gelatin dessert. ?Popsicles. On the day of the procedure do not eat or drink anything during the 2 hours before the procedure. Up to 2 hours before the procedure, you may continue to drink clear liquids, such as water or clear fruit juice. Bowel prep If you were prescribed an oral bowel prep: Take it as told by your doctor. Starting the day before your procedure, you will need to drink a lot of liquid. The liquid will cause you to poop (have bowel movements) until your poop is almost clear or light green. To clean out your colon, you may also be given: ?Laxative medicines. ?Instructions about how to use an enema. If your skin or butt gets irritated from diarrhea, you may: ?Wipe the area with wipes that have medicine in them, such as adult wet wipes with aloe and vitamin E. ?Put something on your skin that soothes the area, such as petroleum jelly. If you throw up (vomit) while drinking the bowel prep, take a break for up to 60 minutes. Then begin the bowel prep again. If you keep throwing up and you cannot take the bowel prep without throwing up, call your doctor. General instructions Ask your doctor about: ?Changing or stopping your normal medicines. This is important if you take iron pills, diabetes medicines, or blood thinners. ?Taking medicines such as aspirin and ibuprofen. These medicines can thin your blood. Do not take these medicines unless your doctor tells you to take them. Plan to have someone take you home from the hospital or clinic. What happens during the procedure? An IV tube may be put into one of your veins. You will be given medicine to help you relax (sedative). To reduce your risk of infection: ?Your doctors will wash their hands. ?Your anal area will be washed with soap. You will be asked to lie on your side with your knees bent. Your doctor will get a long, thin, flexible tube ready. The tube will have a camera and a light on the end. The tube will be put into your anus. The tube will be gently put into your large intestine. Air will be delivered into your large intestine to keep it open. You may feel some pressure or cramping. The camera will be used to take photos. A small tissue sample may be removed for testing (biopsy). If small growths are found, your doctor may remove them and have them checked for cancer. The tube that was put into your anus will be slowly removed. The procedure may vary among doctors and hospitals. What happens after the procedure? Your doctor will check on you often until the medicines you were given have worn off. Do not drive for 24 hours after the procedure. You may have a small amount of blood in your poop. You may pass gas. You may have mild cramps or bloating in your belly (abdomen). It is up to you to get the results of your procedure. Ask your doctor, or the department performing the procedure, when your results will be ready. Summary A colonoscopy is an exam to look at the large intestine. Follow instructions from your doctor about eating and drinking before the procedure. If you were prescribed an oral bowel prep to clean out your colon, take it as told by your doctor. Your doctor will check on you often until the medicines you were given have worn off. Plan to have someone take you home from the hospital or clinic. This information is not intended to replace advice given to you by your health care provider. Make sure you discuss any questions you have with your health care provider. Document Released: 12/18/2011 Document Revised: 09/14/2018 Document Reviewed: 01/26/2017 [employer] Patient Education 2020 [employer] Follow Up Care 05/20/2022 12:24:04 With:DEISY VILLALOBOS MD Address: [address] [facility] [address] [place] [phone] When: Unknown Comments:next colonoscopy 10 years [facility] Summary of episode note 06-15-2022 Note Date & Type Note Facility 06-15-2022 Summary of episode note Discharge Instructions Thank you for allowing [facility] to assist you with your healthcare needs. The following is important discharge information regarding your hospital visit. What to do next Follow Up Appointments Follow Up with DEISY VILLALOBOS MD When Why: next colonoscopy 10 years Where: [address] [facility] [address] [place] [address] [phone] Allergies NKA Medications Please ask your primary doctor or pharmacist before taking any other medication not listed, including over the counter drugs, herbal medications, vitamins and or supplements as they may interact with your home medications. What How Much When Instructions Last Dose Unchanged furosemide (furosemide 40 mg oral tablet) 1 tab(s) by mouth Every day Unchanged lansoprazole (lansoprazole 30 mg oral delayed release capsule) 1 cap by mouth Once a day Unchanged losartan (losartan 100 mg oral tablet) 1 tab(s) by mouth Once a day Unchanged pravastatin (pravastatin 10 mg oral tablet) 1 tab(s) by mouth Daily at bedtime Please take this list to your next doctor s visit. Bring all medications you take, including over the counter medications, herbals and other supplements with you to your doctor s visit. Patients and families are reminded to discard old lists and to update any records with all medication providers or retail pharmacies. Education Materials Monitored Anesthesia Care, Care After These instructions provide you with information about caring for yourself after your procedure. Your health care provider may also give you more specific instructions. Your treatment has been planned according to current medical practices, but problems sometimes occur. Call your health care provider if you have any problems or questions after your procedure. What can I expect after the procedure? After your procedure, you may: Feel sleepy for several hours. Feel clumsy and have poor balance for several hours. Feel forgetful about what happened after the procedure. Have poor judgment for several hours. Feel nauseous or vomit. Have a sore throat if you had a breathing tube during the procedure. Follow these instructions at home: For at least 24 hours after the procedure: Have a responsible adult stay with you. It is important to have someone help care for you until you are awake and alert. Rest as needed. Do not: ? Participate in activities in which you could fall or become injured. ? Drive. ? Use heavy machinery. ? Drink alcohol. ? Take sleeping pills or medicines that cause drowsiness. ? Make important decisions or sign legal documents. ? Take care of children on your own. Eating and drinking Follow the diet that is recommended by your health care provider. If you vomit, drink water, juice, or soup when you can drink without vomiting. Make sure you have little or no nausea before eating solid foods. General instructions Take hvub-gpp-hyxwxbo and prescription medicines only as told by your health care provider. If you have sleep apnea, surgery and certain medicines can increase your risk for breathing problems. Follow instructions from your health care provider about wearing your sleep device: ? Anytime you are sleeping, including during daytime naps. ? While taking prescription pain medicines, sleeping medicines, or medicines that make you drowsy. If you smoke, do not smoke without supervision. Keep all follow-up visits as told by your health care provider. This is important. Contact a health care provider if: You keep feeling nauseous or you keep vomiting. You feel light-headed. You develop a rash. You have a fever. Get help right away if: You have trouble breathing. Summary For several hours after your procedure, you may feel sleepy and have poor judgment. Have a responsible adult stay with you for at least 24 hours or until you are awake and alert. This information is not intended to replace advice given to you by your health care provider. Make sure you discuss any questions you have with your health care provider. Document Released: 03/07/2017 Document Revised: 02/13/2019 Document Reviewed: 03/07/2017 [employer] Patient Education 2020 [employer] Colonoscopy, Adult A colonoscopy is an exam to look at the large intestine. It is done to check for problems, such as: Lumps (tumors). Growths (polyps). Swelling (inflammation). Bleeding. What happens before the procedure? Eating and drinking Follow instructions from your doctor about eating and drinking. These instructions may include: A few days before the procedure follow a low-fiber diet. ? Avoid nuts. ? Avoid seeds. ? Avoid dried fruit. ? Avoid raw fruits. ? Avoid vegetables. 1 3 days before the procedure follow a clear liquid diet. Avoid liquids that have red or purple dye. Drink only clear liquids, such as: ? Clear broth or bouillon. ? Black coffee or tea. ? Clear juice. ? Clear soft drinks or sports drinks. ? Gelatin dessert. ? Popsicles. On the day of the procedure do not eat or drink anything during the 2 hours before the procedure. Up to 2 hours before the procedure, you may continue to drink clear liquids, such as water or clear fruit juice. Bowel prep If you were prescribed an oral bowel prep: Take it as told by your doctor. Starting the day before your procedure, you will need to drink a lot of liquid. The liquid will cause you to poop (have bowel movements) until your poop is almost clear or light green. To clean out your colon, you may also be given: ? Laxative medicines. ? Instructions about how to use an enema. If your skin or butt gets irritated from diarrhea, you may: ? Wipe the area with wipes that have medicine in them, such as adult wet wipes with aloe and vitamin E. ? Put something on your skin that soothes the area, such as petroleum jelly. If you throw up (vomit) while drinking the bowel prep, take a break for up to 60 minutes. Then begin the bowel prep again. If you keep throwing up and you cannot take the bowel prep without throwing up, call your doctor. General instructions Ask your doctor about: ? Changing or stopping your normal medicines. This is important if you take iron pills, diabetes medicines, or blood thinners. ? Taking medicines such as aspirin and ibuprofen. These medicines can thin your blood. Do not take these medicines unless your doctor tells you to take them. Plan to have someone take you home from the hospital or clinic. What happens during the procedure? An IV tube may be put into one of your veins. You will be given medicine to help you relax (sedative). To reduce your risk of infection: ? Your doctors will wash their hands. ? Your anal area will be washed with soap. You will be asked to lie on your side with your knees bent. Your doctor will get a long, thin, flexible tube ready. The tube will have a camera and a light on the end. The tube will be put into your anus. The tube will be gently put into your large intestine. Air will be delivered into your large intestine to keep it open. You may feel some pressure or cramping. The camera will be used to take photos. A small tissue sample may be removed for testing (biopsy). If small growths are found, your doctor may remove them and have them checked for cancer. The tube that was put into your anus will be slowly removed. The procedure may vary among doctors and hospitals. What happens after the procedure? Your doctor will check on you often until the medicines you were given have worn off. Do not drive for 24 hours after the procedure. You may have a small amount of blood in your poop. You may pass gas. You may have mild cramps or bloating in your belly (abdomen). It is up to you to get the results of your procedure. Ask your doctor, or the department performing the procedure, when your results will be ready. Summary A colonoscopy is an exam to look at the large intestine. Follow instructions from your doctor about eating and drinking before the procedure. If you were prescribed an oral bowel prep to clean out your colon, take it as told by your doctor. Your doctor will check on you often until the medicines you were given have worn off. Plan to have someone take you home from the hospital or clinic. This information is not intended to replace advice given to you by your health care provider. Make sure you discuss any questions you have with your health care provider. Document Released: 12/18/2011 Document Revised: 09/14/2018 Document Reviewed: 01/26/2017 [employer] Patient Education 2020 [employer] Additional Information VACCINATE! IT SAVES LIVES! Members of the community who have not yet received the COVID-19 vaccine and would like to receive it can visit one of [facility] vaccine clinics. There are many vaccine clinic locations within the [facility]. For locations and available times, please visit https://[email or web address].[place].gov/. It is important to note that some COVID mobile vaccine clinics are held outdoors and may be canceled in rainy or stormy conditions. To learn more about pediatric vaccinations (ages 5-11), we invite you to visit the [facility] webpage. https://www.[facility].org/pag es/5866-Xoysg-Usamkmpsmtw-Frequent jy-Xyqaf-Zkamkgqif.html To learn more about the COVID-19 vaccine, we invite you to visit the [facility] website for a list of frequently asked questions. [email or web address].[employer]/assets/Patient z-jju-Wwbkqsml/lpbzm-Vvpvvzy-Jnjol ently_Asked-Questions.pdf [facility] Patient Portal Access Instructions: Stay connected with your healthcare team and access your personal medical information anytime with the [facility] Patient Portal.If you would like a full copy of your medical records, please contact the [facility] Medical Records Department, Wednesday through Wednesday between 8a.m. and 4:30p.m. Please follow the directions below to access the portal: 1.Access the email account you provided upon registration to the [facility].2.Look for an invitation email from [facility].3.Open the email and access the invitation link: Accept Invitation to [facility].Fill in the required trent to create your account. Sign into www.[employer] with your username and password that you created in the above steps to stay up to date. You can then view a summary of results, a summary of your visits, and the ability to download your summaries to your computer or send the information securely to a physician. Remember that your healthcare information is confidential, so carefully consider who you will allow to register on the [facility] Patient Portal for access to your information. You can also access the [facility] Patient Portal on the [employer]. Simply click on Health Records under Health Data and then click on the [employer] logo. HOW TO SAFELY DISPOSE OF PRESCRIPTION MEDICATIONS Please use one of the following methods to safely dispose of your unused medications. 1.Use a drug disposal kit: the drug disposal pouch allows you to safely discard your old and unused drugs. Ask your nurse to give you one when you are discharged.2.Visit a local take-back location: Many local pharmacies and police departments have programs that collect old and unwanted prescription drugs. Call your local pharmacy or go to http://[employer].Eventifier/6E5Vd5u to find one close to you.3.Make use of household items: Use cat litter or old coffee grounds to dispose medications if other options are not available. Mix your drugs with these household products, seal them in an airtight container and throw it into the garbage. Call [facility]: [phone] to be sure your drugs can be disposed of in this way. Some medicines may require a different approach.4.Never flush your medications down the toilet. IF YOU HAVE BEEN PRESCRIBED AN OPIOID FOR PAIN If you have been prescribed an opioid (such as hydrocodone, oxycodone or morphine), it is critical to understand the possible side effects and risks of opioid pain medications. Even when taken as directed, opioids can have several side effects including: Tolerance, meaning you might need to take more of a medication for the same pain relief. Nausea, vomiting and/or constipation. Sleepiness, dizziness, dry mouth, confusion, depression or itching. Physical dependence, meaning you have withdrawal symptoms when a medication is stopped, can develop within a few days. KNOW YOUR RESPONSIBILITIES It is important to know exactly how much and how often to take the opioid pain medications you are prescribed. Never take opioids in higher amounts or more often than prescribed. Do not combine opioids with alcohol or other drugs that cause drowsiness, such as benzodiazepines, also known as benzos, including diazepam and alprazolam, muscle relaxants or sleep aids. Never sell or share prescription opioids. This is illegal. Store opioids in a secure place and out of reach of others (including children, family, friends and visitors). The last page of this document has been signed and retained as a CHART COPY. Signatures Patient Education Materials Monitored Anesthesia Care, Care After Colonoscopy, Adult, Xhug-up-Iotm Medication Leaflets My discharge plan and instructions have been reviewed and explained to me and I,JEREMY ROSAS understand my current condition and have read and understand these discharge instructions. I have received a written copy of the plan/instructions. If I have questions, I am aware that I should contact my doctor. 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: Date/Time: Relationship to Patient: ___ Witness Name/Signature: Date/Time: [facility] Anesthesiology Consult note 06-15-2022 Note Date & Type Note Facility 06-15-2022 Anesthesiology Consult note Patient: JEREMY ROSAS Age: 52 years Sex: Male : 1970 Associated Diagnoses: None Author: RUPALI BECKHAM APRN-CIRILO Assessment Postanesthesia assessment Vitals: Vital signs from flowsheet : Vital Signs 06/15/2022 9:20 EDT Heart Rate Monitored 72 bpm bpm Respiratory Rate 22 br/min br/min Systolic Blood Pressure NBP 112 mmHg mmHg Diastolic Blood Pressure NBP 70 mmHg mmHg 06/15/2022 9:15 EDT Heart Rate Monitored 59 bpm bpm Respiratory Rate 15 br/min br/min Systolic Blood Pressure NBP 100 mmHg mmHg Diastolic Blood Pressure NBP 61 mmHg mmHg 06/15/2022 9:10 EDT Heart Rate Monitored 62 bpm bpm Respiratory Rate 16 br/min br/min Systolic Blood Pressure NBP 116 mmHg mmHg Diastolic Blood Pressure NBP 66 mmHg mmHg 06/15/2022 7:57 EDT Temperature Temporal Artery 36.8 DegC Apical Heart Rate 66 bpm Respiratory Rate 15 br/min Systolic Blood Pressure 118 mmHg Diastolic Blood Pressure 58 mmHg LOW Systolic BP Left Arm 118 mmHg Diastolic BP Left Arm 58 mmHg LOW . Mental status: at preoperative baseline. Respiratory function: lungs are clear to auscultation, respirations are non-labored. Respiratory support: none. CV function: Normal rate, Regular rhythm. Cardiovascular support: none. Pain: Post op control No intervention needed. Nausea status: denies nausea. Postoperative hydration status: within normal limits. Digitally Signed by RUPALI BECKHAM on 06/15/2022 09:25 AM [facility] Clinical Note 06-15-2022 Note Date & Type Note Facility 06-15-2022 Note [facility] ADMISSION HISTORY AND PHYSICIAL CHIEF COMPLAINT: HISTORY OF PRESENT ILLNESS: REVIEW OF SYSTEMS: ACTIVE PROBLEMS: (5) GERD (gastroesophageal reflux disease) (316293026) High cholesterol (39063733) HTN (hypertension) (4423303277) Obesity (6794426319) Sleep apnea (739311654) MEDICATIONS: Active Inpt Meds: None Active PRN Meds: None One Time Meds: None Active IV Meds: Lactated Ringers Infusion 1,000 mL (LR 1,000 mL) Start: 06/15/22 8:11:00 EDT, Rate: 50 mL/hr, 06/15/22 8:11:00 EDT ALLERGIES: (1) NKA FAMILY HISTORY: SOCIAL HISTORY: PHYSICAL EXAM: VITALS: YbxrcmPolsVNGejwqNILuT8WVX1ZdgcXx(kg ) 06/15 07:[id number]/48435.0 24 Hr Tmax: 36.8 at 06/15 07:57 36 Hr Tmax: 36.8 at 06/15 07:57 Vital Signs are the last 5 in the past 48 hours. Weights display the last 5 within 7 days. Initial Wt: 06/15 159.0 kg 350 lb Current Wt: 06/15 159.0 kg 350 lb GENERAL: HEENT: CARDIOVASCULAR: RESPIRATORY: ABDOMEN: EXREMETIES: NEUROLOGICAL: PSYCHIATRIC: LABS: No 36hr Lab Data DIAGNOSTICS: IMPRESSION: PLAN: History and Physical Update I have examined the patient; reviewed the H&P and there are no changes to the H&P unless noted below. Digitally Signed by DEISY VILLALOBOS MD on 06/15/2022 09:13 AM [facility] Anesthesiology Consult note 06-15-2022 Note Date & Type Note Facility 06-15-2022 Anesthesiology Consult note Patient: JEREMY ROSAS Age: 52 years Sex: Male : 1970 Associated Diagnoses: None Author: RUPALI BECKHAM APRN-DIRECTOR OF ASSESSING Preoperative Information Anesthesia history Patient's history: negative. Family's history: negative. Health Status Allergies: Allergic Reactions (Selected) NKA, Allergies (1) ActiveReaction NKANone Documented Current medications: (Selected) Documented Medications Documented furosemide 40 mg oral tablet: 40 mg, 1 tab(s), Oral, Daily, 0 Refill(s) lansoprazole 30 mg oral delayed release capsule: 30 mg, 1 cap(s), Oral, qDay, 30 cap(s), 0 Refill(s) losartan 100 mg oral tablet: 100 mg, 1 tab(s), Oral, qDay, 90 tab(s), 0 Refill(s) pravastatin 10 mg oral tablet: 10 mg, 1 tab(s), Oral, qHS, 0 Refill(s), No qualifying data available Problem list: Active Problems (5) GERD (gastroesophageal reflux disease) High cholesterol HTN (hypertension) Obesity Sleep apnea Histories Past Medical History: No active or resolved past medical history items have been selected or recorded. Family History: No family history items have been selected or recorded. Procedure history: No active procedure history items have been selected or recorded. Social History Social & Psychosocial Habits No Data Available . Physical Examination No qualifying data available General: Alert and oriented, No acute distress. Airway: Normal temporomandibular joint mobility. Mallampati classification: II (soft palate, fauces, uvula visible). Dentition Evaluation: Denies loose/chipped teeth. Neck: voice hoarse. Respiratory: Lungs are clear to auscultation, Respirations are non-labored. Cardiovascular: Normal rate, Regular rhythm. Neurologic: Alert, Oriented. Review / Management Results review: No qualifying data available . Assessment and Plan [place] [employer] (ASA) physical status classification: Class III. Anesthetic Preoperative Plan Anesthetic technique: MAC. Postoperative pain management: Per surgeon. Risks discussed: nausea, vomiting, hypotension, allergic reaction, serious complications. Informed consent: signed by patient. Digitally Signed by RUPALI BECKHAM on 06/15/2022 07:59 AM [facility] Evaluation note Note Date & Type Note Facility documented in this encounter [facility] course Narrative Note Date & Type Note Facility Hospital course Narrative No data available for this section [facility] Summary Purpose Family History No Family History Records FoundNo Family History Records FoundNo Family History Records FoundNo Family History Records FoundNo Family History Records Found Advance Directives No Advanced Directives Records FoundDocuments on File Type Date Recorded 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 Advance Directives and Livin g Will 11/04/2019 2:09 PM Latest Code Status on File Code Status Date Activated Date Inactivated Comments Full Code 11/04/2019 3:34 PM Documents on File Type Date Recorded 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 Advance Directives and Livin g Will 01/17/2020 6:50 AM Documents on File Type Date Recorded 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 Advance Directives and Livin g Will 11/20/2020 7:03 AM Documents on File Type Date Recorded 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 Advance Directives and Livin g Will 11/27/2020 7:03 AM Documents on File Type Date Recorded 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 Advance Directives and Livin g Will 12/04/2020 7:03 AM Documents on File Type Date Recorded 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 Advance Directives and Livin g Will 12/11/2020 7:02 AM Documents on File Type Date Recorded 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 Advance Directives and Livin g Will 12/18/2020 6:53 AM Documents on File Type Date Recorded 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 Advance Directives and Livin g Will 12/25/2020 6:53 AM Discharge Instructions * Discharge Instr - Care Coordination* Tina Mcgraw RN - 11/04/2019 5:06 PM EST Blayne Costello MD [address] [place] [address] Or [facility] [address] [place] [address] documented in this encounter History of Present Illness * Debora Smith DO - 11/09/2019 2:50 PM EST Debora Smith DO [facility] Hospitalists History and Physical Patient Name:Jeremy Rosas :1970 Admit Date: [id number] Physicians: Physician No (Family); Mamadou Tillman* (Referring) Perpetual Assessment: Jeremy Rosas is a 49 y.o. morbidly obese male who presented from outside hospital on 11/04/2019 due to worsening bilateral lower extremity erythema and with concern for possible necrotizing fasciitis. ASSESSMENT AND PLAN Rash The patient presented with bilateral LE erythema thought to be cellulitis. Ortho evaluated; no concern for necrotizing fasciitis. Now with diffuse maculopapular rash involving bilateral lower and upper extremities, abdomen - Tx initially with Vanco/zyvox, zosyn, clindamycin at OSH. Changed to Ancef on admit - Infectious disease following. Would like to monitor the patient off antibiotics. Suspect drug eruption and in particular AGEP given pustular nonfollicular lesions - HIV, MEAGHAN, ANCA, syphilis ab, hepatitis panel negative. Complement levels wnl - General surgery consulted for punch biopsy on 11/07. Pathology pending - Given progression of the rash despite holding all antibiotics, will arrange transfer to [facility] for dermatology evaluation. Contacted transfer centered and awaiting bed availability Acute kidney injury - likely multifactorial, possible medication toxicity and on BP meds. - SCr 1.1->3.1->4.0->4.32->3.48 - hold cozaar, lasix (received IV lasix at OSH, on oral lasix at home) - received various antibiotics including Vancomycin, zosyn, Clindamycin, linezolid, and Ancef - urine eos negative. UA unremarkable. +Peripheral eosinophilia with rash, possibly AIN - no proteinuria - renal ultrasound negative for hydronephrosis - nephrology followed. Signed off - continue tp monitor Chronic Venous Insufficiency - had trial of diuresis with IV lasix at OSH - hold on further diuresis - compression and elevate as able Essential Hypertension - hold cozaar due to PORTIA - prn IV lopressor available Hyperlipidemia - continue statin GERD - continue PPI Morbid obesity - BMI 57.59 - encourage lifestyle modifications LORIE - continue nocturnal CPAP Code Status: Full code DVT Prophylaxis Heparin Subcutaneous Comments/Disposition: Given progression of patient's rash, have arranged transfer to [facility] to be evaluated by dermatology. Awaiting bed availability. HISTORY CC: Bilateral lower extremity edema and erythema HPI: The patient was seen and examined this morning. Rash has progressed, particularly on his left upper extremity. No oral lesions/ulcers, fevers, chills, arthralgias, dyspnea, nausea/vomiting/diarrhea, abdominal pain, chest pain. Discussed transfer to [facility] for dermatology evaluation; the patient is agreeable to this. ROS: > > > > > > > > > > The following system(s) were reviewed. Pertinent positive and negative findings are noted in the HPI. [x] Const [] Eyes [x] ENT [x] Resp [x] CV [x] GI [x] [x] Neuro [x] Musc [x] Skin [] Psych [] Endo [] Allergy [] Heme/Lymph PHYSICAL EXAMINATION > > > > > > > > Vital Signs: Temp: [97.6 F (36.4 C)-98.7 F (37.1 C)] 97.9 F (36.6 C) Heart Rate: [83-92] 87 Resp: [14-16] 16 BP: (126-144)/(58-70) 126/64 GENERAL: NAD EYES: Conjunctiva and sclera clear. Mild erythema and swelling of eyelids ENT: Hearing intact. NECK: Supple. CV: RRR, no murmur. +Bilateral LE edema. RESP: Clear, no rales, rhonchi, wheezes or increase in respiratory effort, no use of accessory muscles. GI: Obese, non-distended, +BS, soft, non-tender. No guarding or rebound. MUSC: Normal ROM without deformity. SKIN: Bilateral LE erythema with chronic venous stasis changes. Diffuse maculopapular rash noted along bilateral thighs, arms, and abdomen with pustular areas noted. NEURO: Alert, Ox3. Grossly normal motor and sensory exam. No focal deficits. PSYCH: Mood and affect are appropriate. Cooperative. Laboratory and Additional Data Acquired or Reviewed: [x] Laboratory [x] Transcriptions [x] Radiology [x] Microbiology [] Cardiology [] Outside Records [x] Medications [] Family Time Spent: * Debora Smith DO - 11/08/2019 11:40 AM EST Debora Smith DO [facility] Hospitalists History and Physical Patient Name:Jeremy Rosas :1970 Admit Date: [id number] Physicians: Physician No (Family); Mamadou Tillman* (Referring) Perpetual Assessment: Jeremy Rosas is a 49 y.o. morbidly obese male who presented from outside hospital on 11/04/2019 due to worsening bilateral lower extremity erythema and with concern for possible necrotizing fasciitis. ASSESSMENT AND PLAN Rash The patient presented with bilateral LE erythema thought to be cellulitis. Ortho evaluated; no concern for necrotizing fasciitis. Now with diffuse maculopapular rash involving bilateral lower and upper extremities, abdomen - Tx initially with Vanco/zyvox, zosyn, clindamycin at OSH. Changed to Ancef on admit - Infectious disease following. Would like to monitor the patient off antibiotics. Suspect drug eruption and in particular AGEP given pustular nonfollicular lesions - HIV, MEAGHAN, ANCA, syphilis ab, hepatitis panel negative. Complement levels wnl - General surgery consulted for punch biopsy on 11/07. Pathology pending - Given progression of the rash despite holding all antibiotics, will arrange transfer to [facility] for dermatology evaluation. Contacted transfer centered and awaiting bed availability Acute kidney injury - likely multifactorial, possible medication toxicity and on BP meds. - SCr 1.1->3.1->4.0->4.32->3.48 - hold cozaar, lasix (received IV lasix at OSH, on oral lasix at home) - received various antibiotics including Vancomycin, zosyn, Clindamycin, linezolid, and Ancef - urine eos negative. UA unremarkable. +Peripheral eosinophilia with rash, possibly AIN - no proteinuria - renal ultrasound negative for hydronephrosis - nephrology following. Appreciate guidance - continue daily chemistry panel. SCr improving Chronic Venous Insufficiency - had trial of diuresis with IV lasix at OSH - hold on further diuresis - compression and elevate as able Essential Hypertension - hold cozaar due to PORTIA - prn IV lopressor available Hyperlipidemia - continue statin GERD - continue PPI Morbid obesity - BMI 57.59 - encourage lifestyle modifications LORIE - continue nocturnal CPAP Code Status: Full code DVT Prophylaxis Heparin Subcutaneous Comments/Disposition: Given progression of patient's rash, have arranged transfer to [facility] to be evaluated by dermatology. Awaiting bed availability. HISTORY CC: Bilateral lower extremity edema and erythema HPI: The patient was seen and examined this morning. Rash has progressed, particularly on his left upper extremity. No oral lesions/ulcers, fevers, chills, arthralgias, dyspnea, nausea/vomiting/diarrhea, abdominal pain, chest pain. Discussed transfer to [facility] for dermatology evaluation; the patient is agreeable to this. ROS: > > > > > > > > > > The following system(s) were reviewed. Pertinent positive and negative findings are noted in the HPI. [x] Const [] Eyes [x] ENT [x] Resp [x] CV [x] GI [x] [x] Neuro [x] Musc [x] Skin [] Psych [] Endo [] Allergy [] Heme/Lymph PHYSICAL EXAMINATION > > > > > > > > Vital Signs: Temp: [97.8 F (36.6 C)-98.8 F (37.1 C)] 98.2 F (36.8 C) Heart Rate: [77-88] 80 Resp: [12-16] 14 BP: (121-131)/(54-68) 126/54 GENERAL: NAD EYES: Conjunctiva and sclera clear. Mild erythema and swelling of eyelids ENT: Hearing intact. NECK: Supple. CV: RRR, no murmur. +Bilateral LE edema. RESP: Clear, no rales, rhonchi, wheezes or increase in respiratory effort, no use of accessory muscles. GI: Obese, non-distended, +BS, soft, non-tender. No guarding or rebound. MUSC: Normal ROM without deformity. SKIN: Bilateral LE erythema with chronic venous stasis changes. Diffuse maculopapular rash noted along bilateral thighs, arms, and abdomen with pustular areas noted. NEURO: Alert, Ox3. Grossly normal motor and sensory exam. No focal deficits. PSYCH: Mood and affect are appropriate. Cooperative. Laboratory and Additional Data Acquired or Reviewed: [x] Laboratory [x] Transcriptions [x] Radiology [x] Microbiology [] Cardiology [] Outside Records [x] Medications [] Family Time Spent: * Sadia Calvin DO - 11/08/2019 8:50 AM EST Resident Progress Note Patient Name: Jeremy Rosas : 1970 Admit Date: [id number] Assessment and Plan 49 y.o. male with past medical history of hypertension (on Losartan), obesity and LORIE presenting with concern for cellulits of his bilateral lower extremities. Patient has chronic venous insufficiency, on Lasix at home. Per notes, admission creatinine of 1.0. Nephrology was consulted for further sabiha luation and management of elevated Cr. Nonoliguric PORTIA Suspect ATN due to recent infection and hemodynamic changes. Possibly AIN given recent multiple antibiotics use. Unlikely Vancomycin toxicity, recent level 9. Baseline creatinine 1.0. - Received vanc/zosyn, linezolid and clinda at [facility] and Ancef at [facility]. Denies recent bactrim use. - UA with only minimal hematuria and no proteinuria. - Cr 1.03-> 3.18-> 4.32-> 3.28 - Urine eos neg, mild peripheral eosinophilia noted. HIV, ANCA and MEAGHAN neg. - Renal U/S without obstruction - Net pos 750cc, UOP 1.2L - Holding home losartan. Continue to monitor while off antibiotics. Discontinued mIVF. Continue to monitor with daily BMP. Strict I/O's. Hypertension, controlled Home lasix 40mg BID and losartan 100mg daily - Holding home diuretics. Recommend outpatient follow up and monitoring to determine restarting diuretics. Rash Suspect drug eruption, initially concerning for AGEP given acute onset of nonfollicular pustules onedematous erythema with recent antitbiotic use. However, continues to ascend and spread onto b/l UEwith diffuse erythematous to violaceous papules with area of fine scale concerning for lichenoid drug eruption. - Leukocytosis resolved, ESR elevated on arrival. Mild peripheral eosinophilia noted. HFP wnl. - Surgery performed biopsy 11/07, results pending. - Monitor for improvement with discontinuation of antibiotics. Symptom management per primary team.Plan to transfer to [facility] for inpatient derm evaluation. All care and management plans will be discussed with the attending on service. Sadia Calvin DO 8:50 AM 11/08/19 PGY-1 Pager: [phone] Chief Complaint Chief Complaint Patient presents with Cellulitis BLE --started 3 days ago --went in Wednesday ro [facility] -has been on antibiotic -has genoveva picc line #18 the was inserted yesterdy at [facility] Subjective Patient seen and examined at bedside. No issues overnight. Patient reports rash continues to spread. It remains mildly pruritic. He admits to diaphoresis. He denies other constitutional or urinary symptoms. Patient Review of Systems Review of Systems Constitutional: Positive for diaphoresis. Negative for chills, fatigue and fever. Respiratory: Negative for cough and shortness of breath. Cardiovascular: Negative for chest pain and leg swelling. Gastrointestinal: Negative for abdominal pain, constipation, diarrhea, nausea and vomiting. Genitourinary: Negative for difficulty urinating, dysuria and hematuria. Skin: Positive for rash. Negative for wound. Admits to pruritus Neurological: Negative for dizziness, light-headedness and headaches. Psychiatric/Behavioral: Negative for confusion and sleep disturbance. Physical Exam Vital Signs: BP 131/64 (BP Location: Left arm, Patient Position: Lying) Pulse 88 Temp 97.9 F (36.6 C) (Oral) Resp 14 Ht 5' 9 Wt (!) 176.9 kg (390 lb) SpO2 95% BMI 57.59 kg/m Physical Exam Constitutional: He is oriented to person, place, and time. He appears well- developed and well-nourished. No distress. HENT: Head: Normocephalic and atraumatic. Eyes: Conjunctivae and EOM are normal. No scleral icterus. Cardiovascular: Normal rate and regular rhythm. Pulmonary/Chest: Effort normal and breath sounds normal. No respiratory distress. He has no wheezes. Abdominal: Soft. Bowel sounds are normal. He exhibits no distension. There is no abdominal tenderness. Obese abdomen Musculoskeletal: Normal range of motion. General: Edema (trace LE) present. Comments: Kerflex wraps in place Neurological: He is alert and oriented to person, place, and time. Skin: Skin is warm and dry. Rash noted. He is not diaphoretic. There is erythema. Several nonfollicular pustules on edematus erythema on the lower abdomen. Bilateral upper extremities with diffuse erythematous to violaceous papules with area of fine scale spares the palms. The upper chest is spared. Diffuse coalescing erythematous macules and papules on lower extremities. Psychiatric: He has a normal mood and affect. Vitals reviewed. Additional Data I have independently reviewed the following: Active Medications, Radiology, Cardiology, Microbiology, Labs and Notes Associated attestation - Brigette Kaminski MD - 11/08/2019 2:34 PM EST I have seen the patient and discussed the case on rounds with the resident physician. I have reviewed the history, physical, and assessment/plan with the following comments. OPRTIA - Pt is in nonoliguric PORTIA. PORTIA possibly due to ATN from questionable infection/hemodynamic changes. Unlikely vancomycin toxicity given low levels. Possibility for AIN given multiple abx, peripheral eosinophila and now possible drug reaction. Creatinine continuing to improve D/c ivf. No indication for steroids or renal biopsy currently Rash - likely due to drug reaction. Holding abx. Unlikely due to vasculitis. Serologies pending. Given rash worsening, to be transferred to [facility]. Will sign off, please call with ?s. Brigette Kaminski MD [facility] ([facility]) [phone] (cell) [phone] (after 5pm weekdays & weekends, for on-call attending physician) * Debora Smith, - 11/07/2019 11:42 AM EST Debora Smith, DO [facility] Hospitalists History and Physical Patient Name:Jeremy Rosas :1970 Admit Date: [id number] Physicians: Physician No (Family); Mamadou Tillman* (Referring) Perpetual Assessment: Jeremy Rosas is a 49 y.o. morbidly obese male who presented from outside hospital on 11/04/2019 due to worsening bilateral lower extremity erythema and with concern for possible necrotizing fasciitis. ASSESSMENT AND PLAN Rash The patient presented with bilateral LE erythema thought to be cellulitis. Ortho evaluated; no concern for necrotizing fasciitis. Now with diffuse maculopapular rash involving bilateral lower and upper extremities, abdomen - Tx initially with Vanco/zyvox, zosyn, clindamycin at OSH. Changed to Ancef on admit - Infectious disease following. Would like to monitor the patient off antibiotics. Possibly DRESS - HIV, MEAGHAN, ANCA, syphilis ab, hepatitis panel negative. Complement levels wnl - May need punch biopsy of skin lesion Acute kidney injury - likely multifactorial, possible medication toxicity and on BP meds. - SCr 1.1->3.1->4.0->4.32->3.48 - hold cozaar, lasix (received IV lasix at OSH, on oral lasix at home) - received various antibiotics including Vancomycin, zosyn, Clindamycin, linezolid, and Ancef - urine eos negative. UA unremarkable. +Peripheral eosinophilia with rash, possibly AIN - no proteinuria - renal ultrasound negative for hydronephrosis - nephrology following. Appreciate guidance - continue daily chemistry panel. SCr improving Chronic Venous Insufficiency - had trial of diuresis with IV lasix at OSH - hold on further diuresis - compression and elevate as able Essential Hypertension - hold cozaar due to PORTIA - prn IV lopressor available Hyperlipidemia - continue statin GERD - continue PPI Morbid obesity - BMI 57.59 - encourage lifestyle modifications LORIE - continue nocturnal CPAP Code Status: Full code DVT Prophylaxis Heparin Subcutaneous Comments/Disposition: HISTORY CC: Bilateral lower extremity edema and erythema HPI: The patient was seen and examined this morning. Notes pain and swelling in LE and diffuse rashunchanged. Mildly pruritic. No oral lesions/ulcers, fevers, chills, arthralgias, dyspnea, nausea/vomiting/diarrhea, abdominal pain, chest pain. ROS: > > > > > > > > > > The following system(s) were reviewed. Pertinent positive and negative findings are noted in the HPI. [x] Const [] Eyes [x] ENT [x] Resp [x] CV [x] GI [x] [x] Neuro [x] Musc [x] Skin [] Psych [] Endo [] Allergy [] Heme/Lymph PHYSICAL EXAMINATION > > > > > > > > Vital Signs: Temp: [97.7 F (36.5 C)-100.1 F (37.8 C)] 98.1 F (36.7 C) Heart Rate: [79-97] 79 Resp: [14-16] 14 BP: (110-145)/(69-73) 129/73 GENERAL: NAD EYES: Conjunctiva and sclera clear. Mild erythema and swelling of eyelids ENT: Hearing intact. NECK: Supple. CV: RRR, no murmur. +Bilateral LE edema. RESP: Clear, no rales, rhonchi, wheezes or increase in respiratory effort, no use of accessory muscles. GI: Obese, non-distended, +BS, soft, non-tender. No guarding or rebound. MUSC: Normal ROM without deformity. SKIN: Bilateral LE erythema with chronic venous stasis changes. Diffuse maculopapular rash noted along bilateral thighs, arms, and abdomen with pustular areas noted. NEURO: Alert, Ox3. Grossly normal motor and sensory exam. No focal deficits. PSYCH: Mood and affect are appropriate. Cooperative. Laboratory and Additional Data Acquired or Reviewed: [x] Laboratory [x] Transcriptions [x] Radiology [x] Microbiology [] Cardiology [] Outside Records [x] Medications [] Family Time Spent: * Sadia Calvin DO - 11/07/2019 8:04 AM EST Resident Progress Note Patient Name: Jeremy Rosas : 1970 Admit Date: [id number] Assessment and Plan 49 y.o. male with past medical history of hypertension (on Losartan), obesity, obstructive sleep apnea presenting with concern for necrotizing fasciitis of his bilateral legs. He has chronic venous insufficiency, on Lasix at home. Per notes, admission creatinine of 1.0. Nephrology was consulted forfurther evaluation and management of elevated Cr. Nonoliguric PORTIA Suspect ATN due to recent infection and hemodynamic changes. Possibly AIN given recent multiple antibiotics use. Unlikely Vancomycin toxicity, recent level 9. Baseline creatinine 1.0. - received vanc/zosyn, linezolid and clinda at [facility]. Received Ancef at [facility]. Denies recent bactrim use. - UA with only minimal hematuria and no proteinuria. - Cr 1.03 at [facility] on 11/02. Cr 3.18 on 11/04-> 4.32-> 3.48 - ESR elevated at 38 - Urine eos neg,mild peripheral eosinophilia noted. HIV, ANCA and MEAGHAN neg. - Renal U/S without obstruction - Net pos 69cc, UOP 1.3L - Holding home losartan. Continue to monitor while off antibiotics. Still awaiting urine studies darius collected. Will discontinue mIVF. Hypertension, controlled Home lasix 40mg BID and losartan 100mg daily - Holding home diuretics Rash Suspect drug eruption, specifically AGEP given acute onset and recent antitbiotics. - Anticipate improvement with discontinuation of antibiotics. Symptom management per primary team. All care and management plans will be discussed with the attending on service. Sadia Calvin DO 8:04 AM 11/07/19 PGY-1 Pager: [phone] Chief Complaint Chief Complaint Patient presents with Cellulitis BLE --started 3 days ago --went in Wednesday ro [facility] -has been on antibiotic -has genoveva picc line #18 the was inserted yesterdy at [facility] Subjective Patient seen and examined at bedside. No issues overnight. Reports rash has continued to spread andis mildly pruritic. Denies urinary symptoms. Patient Review of Systems Review of Systems Constitutional: Positive for fever. Negative for chills and fatigue. Respiratory: Negative for cough and shortness of breath. Cardiovascular: Positive for leg swelling. Negative for chest pain. Gastrointestinal: Negative for abdominal pain, constipation, diarrhea, nausea and vomiting. Genitourinary: Negative for difficulty urinating, dysuria and hematuria. Skin: Positive for rash. Negative for wound. Neurological: Negative for dizziness, light-headedness and headaches. Psychiatric/Behavioral: Negative for confusion and sleep disturbance. Physical Exam Vital Signs: BP 129/73 (BP Location: Left arm, Patient Position: Lying) Pulse 79 Temp 98.1 F (36.7 C) (Oral) Resp 14 Ht 5' 9 Wt (!) 176.9 kg (390 lb) SpO2 93% BMI 57.59 kg/m Physical Exam Constitutional: He is oriented to person, place, and time. He appears well- developed and well-nourished. No distress. HENT: Head: Normocephalic and atraumatic. Eyes: Conjunctivae and EOM are normal. No scleral icterus. Cardiovascular: Normal rate and regular rhythm. Pulmonary/Chest: Effort normal and breath sounds normal. No respiratory distress. He has no wheezes. Abdominal: Soft. Bowel sounds are normal. He exhibits no distension. There is no abdominal tenderness. Obese abdomen Musculoskeletal: Normal range of motion. General: Edema (trace LE) present. Comments: Kerflex wraps in place Neurological: He is alert and oriented to person, place, and time. Skin: Skin is warm and dry. Rash noted. He is not diaphoretic. There is erythema. Worsening spread of nonfollicular pustules on edematus erythema ascending from the lower extremities onto the lower abdomen. BUE involvement as well. Psychiatric: He has a normal mood and affect. Vitals reviewed. Additional Data I have independently reviewed the following: Active Medications, Radiology, Cardiology, Microbiology, Labs and Notes Associated attestation - Brigette Kaminski MD - 11/07/2019 1:33 PM EST I have seen the patient and discussed the case on rounds with the resident physician. I have reviewed the history, physical, and assessment/plan with the following comments. PORTIA - Pt is in nonoliguric PORTIA. PORTIA possibly due to ATN from questionable infection/hemodynamic changes. Unlikely vancomycin toxicity given low levels. Possibility for AIN given multiple abx, peripheral eosinophila and now possible drug reaction. Creatinine starting to improve. D/c ivf. No indication for steroids or renal biopsy currently Rash - likely due to drug reaction. Holding abx. Unlikely due to vasculitis. Serologies pending. Urine bland. If rash worsening, consider transfer to [facility] for dermatology consultation. Brigette Kaminski MD [facility] (Former[facility]) [phone] (cell) [phone] (after 5pm weekdays & weekends, for on-call attending physician) * Bri Lincoln RN - 11/06/2019 4:59 PM EST WOC/ET RN consult/evaluation note: Evaluated Jeremy Rosas for wound located on left medial calf. Description of wound/Recommendation: Responding to a wound care consult for assessment of left calfblister. Upon assessment he has a large bullae that has ruptured. No signs of infection. [place] woundbed. Serous drainage. He was cleansed with soap and water, patting dry. A bordered foam dressing was applied. Sandy wraps re applied -Change Mepilex bordered foam dressing to left medial calf every 3-4 days or as needed. Cleanse area with soap and water when changing dressing. Lift edge of dressing daily and replace to evaluate skin between dressing changes. Hero Score: Surface: low air loss, pressure redistribution Wound documentation : 11/06/19 1600 Wound 11/05/19 Acute Other (comment) Calf Left Date First Assessed/Time First Assessed: 11/05/19 0856 Present on Hospital Admission: Yes Wound Condition (HOME HEALTH ONLY): Acute Primary Wound Type: (c) Other (comment) Location: Calf Wound Location Orientation: Left Wound Bed Characteristics [place];Fragile Earlene-wound Assessment Temperature WNL;Clean;Dry;Intact;Errythema Wound Length (cm) 8.5 cm Wound Width (cm) 8.5 cm Wound Surface Area (cm^2) 72.25 cm^2 Area % Change 0 Drainage Description Serous Drainage Amount Small Odor None Treatments Not Applicable Cleansed Soap and water Primary Dressing Bordered foam dressing (MEPILEX) Compression Dressing Sandy wrap Dressing Changed New Dressing Status Clean;Intact;Changed Adherent Yellow Slough % None Moist Yellow Slough % None Dry Black Eschar % None Moist Black Eschar % None Epithelialization % None Granulation % None Wound Margin Well defined Non-staged Wound Description Partial thickness Exposed Structure None Hemostasis Not applicable RN notified of assessment and plan. Bri Lincoln RN * Luis Debora DO Ale - 11/06/2019 2:55 PM EST Debora Smith DO [facility] Hospitalists History and Physical Patient Name:Jeremy Rosas :1970 Admit Date: [id number] Physicians: Physician No (Family); Mamadou Tillman* (Referring) Perpetual Assessment: Jeremy Rosas is a 49 y.o. morbidly obese male who presented from outside hospital on 11/04/2019 due to worsening bilateral lower extremity erythema and with concern for possible necrotizing fasciitis. ASSESSMENT AND PLAN Rash The patient presented with bilateral LE erythema thought to be cellulitis. Ortho evaluated; no concern for necrotizing fasciitis. Now with diffuse maculopapular rash involving bilateral lower and upper extremities, abdomen - Tx initially with Vanco/zyvox, zosyn, clindamycin at OSH. Changed to Ancef on admit - Infectious disease following. Would like to monitor the patient off antibiotics. Possibly DRESS - HIV, MEAGHAN, ANCA, Syphilis ab, hepatitis panel negative. Complement levels wnl - May need punch biopsy of skin lesion Acute kidney injury - likely multifactorial, possible medication toxicity and on BP meds. - SCr 1.1->3.1->4.0->4.32 - hold cozaar, lasix (received IV lasix at OSH, on oral lasix at home) - received various antibiotics including Vancomycin, zosyn, Clindamycin, linezolid, and Ancef - urine eos negative. +Peripheral eosinophilia - no proteinuria - renal ultrasound negative for hydronephrosis - nephrology following. Appreciate guidance Chronic Venous Insufficiency - had trial of diuresis with iv lasix at OSH - hold on further diuresis - compression and elevate as able Essential Hypertension - hold cozaar due to PORTIA - prn IV lopressor available - avoid hypotension given PORTIA Hyperlipidemia - continue statin GERD - continue PPI Morbid obesity - BMI 57.59 - encourage lifestyle modifications LORIE - continue nocturnal CPAP Code Status: Full code DVT Prophylaxis Heparin Subcutaneous Comments/Disposition: HISTORY CC: Bilateral lower extremity edema and erythema HPI: The patient was seen and examined this morning. Chart reviewed. Notes pain and swelling in LE stable. Rash seems to have progressed to involve bilateral upper extremities. Mildly pruritic. No oral lesions/ulcers, fevers, chills, arthralgias, dyspnea, nausea/vomiting/diarrhea, chest pain. ROS: > > > > > > > > > > The following system(s) were reviewed. Pertinent positive and negative findings are noted in the HPI. [x] Const [] Eyes [x] ENT [x] Resp [x] CV [x] GI [x] [x] Neuro [x] Musc [x] Skin [] Psych [] Endo [] Allergy [] Heme/Lymph PHYSICAL EXAMINATION > > > > > > > > Vital Signs: Temp: [97.7 F (36.5 C)-100.3 F (37.9 C)] 98.2 F (36.8 C) Heart Rate: [79-98] 79 Resp: [14-26] 16 BP: (110-148)/(69-74) 110/69 GENERAL: NAD EYES: Conjunctiva and sclera clear. ENT: Hearing intact. Pharynx clear. NECK: Supple. CV: RRR, no murmur. +Bilateral LE edema. RESP: Clear, no rales, rhonchi, wheezes or increase in respiratory effort, no use of accessory muscles. GI: Obese, non-distended, +BS, soft, non-tender. No guarding or rebound. MUSC: Normal ROM without deformity. SKIN: Bilateral LE erythema with chronic venous stasis changes. Diffuse maculopapular rash noted along bilateral thighs, arms, and abdomen with pustular areas noted. NEURO: Alert, Ox3. Grossly normal motor and sensory exam. No focal deficits. PSYCH: Mood and affect are appropriate. Cooperative. Laboratory and Additional Data Acquired or Reviewed: [x] Laboratory [x] Transcriptions [x] Radiology [] Microbiology [x] Cardiology [x] Outside Records [x] Medications [] Family Time Spent: Mikaela Clark MD - 11/06/2019 8:49 AM EST INFECTIOUS DISEASES DAILY PROGRESS NOTE Patient Name: Jeremy Rosas MR #: [id number] Date of Service: 11/06/2019 Impression/Recommendations: 1) diffuse rash 2) concern for BLE cellulitis 3) chronic venous insufficiency 4) PORTIA Patient is unaware of timing of rash, but onset appears to have been after admission to the hospital. Agree with continuing to monitor off abx, as not clearly infectious cellulitis, and trying not to muddy the villasenor by introducing other medications unless necessary. Pt afebrile here (100.6 at [facility]), and hemodynamically stable. Rash may now be separate from initial admitting complaint but difficult to tell. Pt denies any other new medications or exposures prior to admission. - monitor off abx for now - await HIV, MEAGHAN, ANCA, repeat complement, hepatitis panel - urine eos negative, mild peripheral eosinophilia. Ordered repeat diff today, would check daily CBC with diff for now - with pustular component may be moving towards AGEP type syndrome. No dermatology available to evaluate here, may need to consider biopsy of one of arm or abdominal lesions. - nephrology following Discussed with Dr Luis LUNDBERG. Perpetual Assessment: Jeremy Rosas is a 49 y.o. male on hospital day 0 with morbid obesity, LORIE, HTN, transferred from [place] for BLE cellulitis Subjective/Objective: Subjective: Patient was seen and examined in follow-up for Dr Rodriguez, all notes, labs, imaging reviewed. He states he didn't sleep well last night. Afebrile, states he had sweating sensation overnight. Difficult to elicit skin symptom history, really a vague historian in general. He states his feet feel less tight. He has rash over arms, torso, neck, states he was unaware of it and unsure when it appeared. Per [facility] notes only skin changes on legs. Per [facility] notes, some macules on lower abdomen, few on arms per pictures 11/05. Now with more confluent patches on arms and few pustules on abd wall and arms. Denies pain, mainly itching. LFTs have been ok. Denies changes in vision or mouth ulcers. Received 3 doses cefazolin at [facility], last ~0900 11/05. [facility] records reviewed again; zosyn 11/01-->transfer, vancomycin 11/01-11/03, linezolid 11/03-11/04, clindamycin 11/04. WBC 10.66 11/02, Cr 1.03 on 11/02, 1.15 11/03, 3.18 11/04. Vancomycin trough 11/03 11.3.I called [facility] lab, bcx 11/01 [facility] NGTD. Wound cx 11/03 negative at 48hrs. Review of Systems: The following system(s) were reviewed and negative. Pertinent positive and negative findings are noted in the HPI. [x] Const [] Eyes [] ENT [x] Resp [x] CV [x] GI [] [] Neuro [x] Musc [x] Skin [] Psych [] Endo [] Allergy [] Heme/Lymph [] Unable to obtain due to clinical status Physical Examination: BP 127/74 (BP Location: Left arm, Patient Position: Lying) Pulse 82 Temp 98.6 F (37 C) (Oral) Resp 16 Ht 5' 9 Wt (!) 176.9 kg (390 lb) SpO2 92% BMI 57.59 kg/m General: NAD; alert HEENT: Head: NCAT. Eyes: conjunctiva and sclera clear. OP clear Neck: Supple, no appreciable lymphadenopathy Respiratory: Clear without rales, rhonchi or wheezes; no increased respiratory effort Cardiovascular: RRR; distant Abdomen: Soft; priotuberant, nontender, nondistended Extremities: + edema BLE Musculoskeletal: No specific joint edema or erythema, feet edematous Skin: Diffuse erythroderma of BLE, B calf wrapped. Likely chronic tinea of feet. Scattered macular rash on both arms, abdomen, one on lip. Few on abdomen appear pustular. Scatteredcoalescent patches on arms : No church Lines: PICC RUE from OSH Laboratory and Additional Data Reviewed: Laboratory 11/06/19 9:24 AM Microbiology 11/06/19 9:24 AM Pathology 11/06/19 9:24 AM Radiology 11/06/19 9:24 AM Cardiology 11/06/19 9:24 AM Medications 11/06/19 9:24 AM Transcriptions 11/06/19 9:24 AM Current medications: heparin (porcine) 5,000 Units Subcutaneous Q8H AMBER pantoprazole 40 mg Oral Daily pravastatin 10 mg Oral Nightly sodium chloride (PF) 10 mL Intracatheter Q8H AMBER Results from last 7 days Lab Units 11/06/19 0412 11/05/19 1700 11/05/19 0329 WBC K/mcL 15.71* 14.95* 13.69* 13.69* HGB g/dL 10.8* 11.4* 11.4* 11.4* HCT % 33.7* 35.5* 34.8* 34.8* PLT K/mcL 193 216 217 217 Results from last 7 days Lab Units 11/06/19 0412 11/05/19 0329 11/04/19 1417 SODIUM mmol/L 135 133* 134* POTASSIUM mmol/L 4.3 4.0 4.1 CHLORIDE mmol/L 100 99 96* BUN mg/dL 60* 57* 52* CREATININE mg/dL 4.32* 4.06* 3.42* GLUCOSE mg/dL 112* 105* 114* CALCIUM mg/dL -- 8.3* 8.8 Comments: WBC 15.71 (no diff today). Cr 4.32 LFTs reviewed Bcx [facility] 11/01 NGTD (close to 5 days) Wound cx 11/03 (from bulla) negative at 48hrs MRI [facility] LLE with soft tissue swelling Assessment Detail: The total time spent for this visit was 25 minutes. Greater than 50% of the time was spent in counseling and coordination of care regarding skin rash, concern for cellulitis. Mikaela Galeas MD [facility] - Infectious Diseases Pager [phone] Office/answering service [phone] 11/06/2019 8:49 AM * Sadia Calvin, DO - 11/06/2019 8:05 AM EST Resident Progress Note Patient Name: Jeremy Rosas : 1970 Admit Date: [id number] Assessment and Plan 49 y.o. male with past medical history of hypertension (on Losartan), obesity, obstructive sleep apnea presenting with concern for necrotizing fasciitis of his bilateral legs. He has chronic venous insufficiency, on Lasix at home. Per notes, admission creatinine of 1.0. Nephrology was consulted forfurther evaluation and management of elevated Cr. PORTIA Suspect secondary to recent antibiotics with possible shifts in blood pressure while on ARB. Less likely Vancomycin toxicity, recent level 9. Baseline creatinine 1.0. - received vanc/zosyn, linezolid and clinda at [facility]. Received Ancef at [facility]. Denies recent bactrim use. - UA with only minimal hematuria and no proteinuria. - Cr 1.03 at [facility] on 11/02. Up trending to 3.18 on 11/04. Cr 4.32 - ESR elevated at 38, - urine eos neg,mild peripheral eosinophilia noted. Pr:cr ratio nml. HFP wnl. - Renal U/S without obstruction - Holding home losartan. Continue MIV. Agree with monitoring while off of antibiotics. Serologic studies pending. Will recheck urine Osm and urine studies. Hypertension, controlled Home lasix 40mg BID, losartan 100mg daily - Holding home losartan All care and management plans will be discussed with the attending on service. Sadia Calvin DO 8:06 AM 11/06/19 PGY-1 Pager: [phone] Chief Complaint Chief Complaint Patient presents with Cellulitis BLE --started 3 days ago --went in Wednesday ro [facility] -has been on antibiotic -has genoveva picc line #[id number] the was inserted yesterdy at [facility] Subjective Patient seen and examined at bedside. Patient reports difficulty sleeping, unclear why when asked. He continues to have diffuse myalgias, fever, chills and fatigue. He denies history of similar rashes in the past. Patient denies any recent contacts, changes in medications or family history of autoimmune disease. Patient reports lower extremity swelling and redness started on 11/01 and rash worsened, but cannot recall timeline. He was treated initially with Vancomycin and Zosyn at [facility] for 3-4 days. Patient Review of Systems Review of Systems Constitutional: Positive for chills and fever. Respiratory: Positive for cough (productive). Negative for shortness of breath. Cardiovascular: Positive for leg swelling. Negative for chest pain. Gastrointestinal: Positive for abdominal pain and diarrhea. Negative for constipation, nausea and vomiting. Genitourinary: Negative for difficulty urinating, dysuria and hematuria. Musculoskeletal: Positive for myalgias. Skin: Positive for rash. Negative for wound. Neurological: Negative for dizziness, light-headedness and headaches. Psychiatric/Behavioral: Positive for sleep disturbance. Negative for confusion. Physical Exam Vital Signs: BP 127/74 (BP Location: Left arm, Patient Position: Lying) Pulse 82 Temp 98.6 F (37 C) (Oral) Resp 16 Ht 5' 9 Wt (!) 176.9 kg (390 lb) SpO2 92% BMI 57.59 kg/m Physical Exam Constitutional: He is oriented to person, place, and time. He appears well- developed and well-nourished. No distress. HENT: Head: Normocephalic and atraumatic. Eyes: Conjunctivae and EOM are normal. No scleral icterus. Cardiovascular: Normal rate and regular rhythm. Pulmonary/Chest: Effort normal and breath sounds normal. No respiratory distress. He has no wheezes. Abdominal: Soft. Bowel sounds are normal. He exhibits distension. There is no abdominal tenderness. Musculoskeletal: Normal range of motion. General: Edema present. Neurological: He is alert and oriented to person, place, and time. Skin: Skin is warm and dry. Rash noted. He is not diaphoretic. There is erythema. Confluent erythematous macules and papules ascending from the lower extremities onto the lower abdomen with several scattered non follicular pustules on the abdomen. Flexural involvement noted. BLE hyperpigmented patches with erythema and edema. Psychiatric: He has a normal mood and affect. Vitals reviewed. Additional Data I have independently reviewed the following: Active Medications, Radiology, Cardiology, Microbiology, Labs and Notes Associated attestation - Yamilex, Brigette Flores MD - 11/06/2019 12:12 PM EST I have seen the patient and discussed the case on rounds with the resident physician. I have reviewed the history, physical, and assessment/plan with the following comments. PORTIA - Pt is in nonoliguric PORTIA. PORTIA possibly due to ATN from questionable infection/hemodynamic changes. Unlikely vancomycin toxicity given low levels. Possibility for AIN given multiple abx, peripheral eosinophila and now possible drug reaction. Creatinine starting to stabilize. Creatinine 4.3 today Continue IVF No indication for steroids or renal biopsy currently Rash - likely due to drug reaction. Holding abx. Unlikely due to vasculitis. Serologies pending. Urine bland. Brigette Kaminski MD [facility] ([facility]) [phone] (cell) [phone] (after 5pm weekdays & weekends, for on-call attending physician) * Emeterio Kim MD - 11/05/2019 2:56 PM EST Emeterio Kim MD [facility] Hospitalists History and Physical Patient Name:Jeremy Rosas :1970 Admit Date: [id number] Physicians: Physician No (Family); Mamadou Tillman* (Referring) Perpetual Assessment: Jeremy Rosas is a 49 y.o. morbidly obese male who presented from outside hospital on 11/04/2019 due to worsening cellulitis and concern for possible necrotizing fasciitis ASSESSMENT AND PLAN Cellulitis - bilateral lower extremities (see photos from ER note). He has chronic venous insufficiency at baseline - no sign of necrotizing fasciitis at present, d/w ortho and consult reviewed. - doubt vasculitis as serum complement levels normal - MRI LE done at OSH (images in epic) - Tx initially with Vanco/zyvox, zosyn, clindamycin at OSH. Changed to Ancef on admit. Monitor closely for drug rash - LE doppler negative - elevated CRP, ESR - c/s ID to assist - Ortho recommends antibiotics and supportive care PORTIA - likely multifactorial, possible medication toxicity and on BP meds. - Cr was 1.1>3.1>4.0 - hold cozaar, lasix (got iv lasix at OSH, on oral lasix at home), Vanco, zosyn - check renal US, urine eos - renal consult pending Chronic Venous Insufficiency - exac by underlying cellulitis - had trial of diuresis with iv lasix at OSH but developed PORTIA - hold on further diuresis - compression and elevate as able LORIE Morbid obesity - nocturnal cpap - bmi 57 - lifestyle modification Essential Hypertension - hold cozaar due to PORTIA - prn iv lopressor Code Status: Full DVT Prophylaxis Heparin Subcutaneous Comments/Disposition: Follow renal US, renal consult HISTORY CC: Bilateral redness, swelling of lower legs HPI: pt seen and examined. Chart reviewed. Notes pain and swelling in LE stable. Still with bilat LE erythema. Rash is past prior demarcation. No cp, no sob. No n/v. He has chronic bilat LE edema. Usually BP well controlled. Denies change in UOP. ROS: > > > > > > > > > > The following system(s) were reviewed. Pertinent positive and negative findings are noted in the HPI. [x] Const [] Eyes [] ENT [x] Resp [x] CV [x] GI [x] [x] Neuro [x] Musc [x] Skin [] Psych [x] Endo [] Allergy [] Heme/Lymph PHYSICAL EXAMINATION > > > > > > > > Vital Signs: Temp: [97.4 F (36.3 C)-100.8 F (38.2 C)] 98 F (36.7 C) Heart Rate: [76-91] 81 Resp: [14-16] 16 BP: (124-144)/(65-75) 133/75 GENERAL: NAD EYES: Conjunctiva and sclera clear, EOMI, PERRL ENT: Hearing intact. Pharynx clear. NECK: No adenopathy or thyromegaly. CV: RRR, no murmur. RESP: Clear, no rales, rhonchi, wheezes or increase in respiratory effort, no use of accessory muscles. GI: Obese, Non-distended, +BS, soft, non-tender. No guarding, masses or rebound MUSC: Normal ROM without deformity. SKIN: Bilateral LE erythema With venous stasis changes. +macular erythema upto bilat thighs NEURO: Alert, Ox3. Grossly normal motor and sensory exam. No focal deficits. PSYCH: Mood and affect are appropriate. Cooperative. Laboratory and Additional Data Acquired or Reviewed: [x] Laboratory [x] Transcriptions [x] Radiology [] Microbiology [x] Cardiology [x] Outside Records [x] Medications [] Family Time Spent: documented in this encounter* Alan Mahan RN - 11/20/2020 7:55 AM EST Associated Order(s): Multi-Layer Compression Dressing Post-Procedure Diagnose(s): Ulcer of left calf, limited to breakdown of skin (HCC); Venous stasis dermatitis of both lower extremities Multi-layer Compression Wrap Procedure Performed for: Left Performed by:: Clinician Procedural Pain: 0 Bandage Type: Compression Compression Layers: 2 Layers Dressing Applied: No Extremity Location: Below Knee * Manuel Lockett III, DO - 11/20/2020 7:43 AM EST [facility] Wound Care Note Patient Name: Jeremy Rosas MR #: [id number] : 1970 Physicians: Blayne Costello DO (Referring);Blayne Costello DO (Family) Dear Blayne Costello DO (Referring), It was a pleasure seeing Jeremy Rosas who is a 50 y.o. male, being seen today on 11/20/2020 in the [facility], for Consultation with a chief compaint of left leg ulcer. Assessment and Plan: 1. Ulcer of left calf, limited to breakdown of skin (HCC) Dressing 2. Venous stasis dermatitis of both lower extremities 3. Morbid obesity with BMI of 45.0-49.9, adult (HCC) At the present time, Mr. Rosas continues to have issues regarding morbid obesity. He has repetitive injuries to the left lateral lower leg because he bumps up against furniture or other objects that create a small injury to the left lower leg. He has had previous cellulitis is in the past, and is always concerned regarding healing. He rarely wears compression stockings, which I instructed him to start wearing a regular basis once the ulcers healed. This is a very superficial ulcer, secondary to trauma. I feel he can be treated conservatively with compressive therapy and wound management materials. We will wrap him today with a 3M compression wrap with Suzi and TL max on the wound itself. We will see him back in the wound care clinic in 1 week. Once the ulcer is healed, long- term management needs to be with compressive therapy. We appreciate the opportunity to consult in his care. Follow Up Ordered: Return in about 1 week (around 11/27/2020) for Wound care visit. Manuel Lockett III, DO, CWS HPI Mr. Rosas is a 50-year-old male who was seen at the [facility] wound care clinic today onNovember 20, 2020. He is morbidly obese male states that he has repeated episodes of injuring his lower extremities. He states that he rubs up against furniture or bangs his legs against various pieces of equipment, and developed superficial ulcers and sores. He has had prior history of problems wit h cellulitis, and slow healing. He denies any DVT or superficial venous thrombosis history. He denies any claudication or evidence for arterial disease. He does recognize he is morbidly obese, but states he is trying to lose weight. He states that he does use compression hose, but uses them rarely.He has been seen in the past for skin problems, and is always concerned regarding cellulitis episodes on the open wounds. He denies any fevers or chills or evidence of sepsis at the present time. Physical Examination: Vital Signs: BP (!) 140/69 Pulse (!) 55 Temp 98.1 F (36.7 C) (Infrared) Resp 16 Wt (!) 156.6 kg (345 lb 3.2 oz) BMI 50.98 kg/m Pulses - Carotid - Right - Bruit Absent Left - Bruit Absent Popliteal- Right - 2/2; Left - 2/2 DP- Right - 1/2; Left - 1/2 PT- Right - 2/2; Left - 2/2 Extremities & Vascular Evaluation - - Edema - Right Trace; Left Trace - Chronic stasis changes - Right Lower Extremity Present; Left Lower Extremity Present - Lipodermatosclerosis - Right Lower Extremity absent; Left Lower Extremity Absent - Varicose Veins - Right Lower Extremity NOT noted; Left Lower Extremity NOT noted LOWER EXTREMITY WOUND EXAM- * No LDAs found * Physical Exam Constitutional: He is oriented to person, place, and time. Vital signs are normal. He appears well-developed and well-nourished. He is active and cooperative. Morbidly obese HENT: Head: Normocephalic and atraumatic. Eyes: Conjunctivae, EOM and lids are normal. Neck: Trachea normal, normal range of motion and full passive range of motion without pain. Neck supple. Normal carotid pulses and no JVD present. Carotid bruit is not present. No thyromegaly present. Cardiovascular: Normal rate, regular rhythm and normal heart sounds. No murmur heard. Pulses: Carotid pulses are 2+ on the right side and 2+ on the left side. Radial pulses are 2+ on the right side and 2+ on the left side. Popliteal pulses are 2+ on the right side and 2+ on the left side. Dorsalis pedis pulses are 1+ on the right side and 1+ on the left side. Posterior tibial pulses are 2+ on the right side and 2+ on the left side. Bilateral dorsalis pedal and posterior tibial artery Doppler signals are triphasic and strong. Pulmonary/Chest: Effort normal. He has decreased breath sounds in the right lower field and the left lower field. He has no wheezes. He has no rhonchi. He has no rales. Abdominal: Soft. Normal appearance and bowel sounds are normal. There is no abdominal tenderness. There is no rebound and no guarding. Limited exam due to body habitus and morbid obesity. Musculoskeletal: Normal range of motion. Right lower leg: Edema (Mild) present. Left lower leg: He exhibits laceration (Abrasion left lateral calf that is into the dermal layer. It measures approximately 2.5 x 2.5 cm.). Edema (Mild) present. Comments: Left foot has callus formation at the third metatarsal head on the plantar aspect that israther macerated, as well as medial left great toe. Neurological: He is alert and oriented to person, place, and time. He has normal strength. He is not disoriented. No cranial nerve deficit or sensory deficit. He exhibits normal muscle tone. Gait normal. Skin: Skin is warm, dry and intact. No cyanosis. Nails show no clubbing. Psychiatric: He has a normal mood and affect. His speech is normal and behavior is normal. Judgmentand thought content normal. Cognition and memory are normal. Past History: Past Medical History: Diagnosis Date Cellulitis of left leg Dermatophytosis of nail GERD (gastroesophageal reflux disease) Glaucoma Hyperlipidemia Hypertension Peripheral vascular disease (HCC) Venous insufficiency Venous stasis ulcer (HCC) left lower leg Past Surgical History: Procedure Laterality Date HERNIA REPAIR umbilical Family History Problem Relation Age of Onset Hypertension Father Diabetes Father Other (stents) Father Social History Socioeconomic History Marital status: Single Spouse name: Not on file Number of children: Not on file Years of education: Not on file Highest education level: Not on file Occupational History Not on file Social Needs Financial resource strain: Not on file Food insecurity Worry: Not on file Inability: Not on file Transportation needs Medical: Not on file Non-medical: Not on file Tobacco Use Smoking status: Never Smoker Smokeless tobacco: Never Used Substance and Sexual Activity Alcohol use: Never Frequency: Never Drug use: Never Sexual activity: Not on file Lifestyle Physical activity Days per week: Not on file Minutes per session: Not on file Stress: Not on file Relationships Social connections Talks on phone: Not on file Gets together: Not on file Attends buddhist service: Not on file Active member of club or organization: Not on file Attends meetings of clubs or organizations: Not on file Relationship status: Not on file Other Topics Concern Not on file Social History Narrative Not on file Allergy Information: I have reviewed the patient's allergies. Patient has no known allergies. Home Medications: Current Outpatient Medications Medication Sig Dispense Refill FLAXSEED ORAL Take 1 capsule by mouth daily . lansoprazole (PREVACID) 30 MG capsule Take 30 mg by mouth every night at bedtime . omega 8-acd-tzz-fish oil (Fish Oil) 300-1,000 mg cap Take 1 capsule by mouth daily . pravastatin (PRAVACHOL) 10 MG tablet Take 10 mg by mouth every night at bedtime . No current facility-administered medications for this visit. Review of Systems - Negative except the ones mentioned in the HPI. * Alan Mahan RN - 11/20/2020 7:27 AM EST Surgical mask and gloves were worn while in this patient's room. Patient wearing mask at all times while staff in the room. * Carol Kaufman PSA - 11/20/2020 7:15 AM EST Patient called today for COVID-19 screening regarding upcoming appointment in wound clinic. Have you been in close contact with anyone confirmed to have coronavirus/COVID- 19 in the past 14 days? No Have you traveled out of state or internationally in the past 14 days? No In the last 24 hours have you had any of the following symptoms? Fever over 100 F No Cough No Shortness of breath or difficulty breathing No Chills or repeated shaking with chills No Muscle pain, headache, or sore throat No Any loss of taste or smell No Diarrhea no Patient was reminded at this time wound clinic is not allowing visitors for social distancing purposes. Patient was informed of new procedure to gain access to wound clinic. documented in this encounter* Kia Bowen RN - 11/27/2020 7:47 AM EST Surgical mask and gloves, and eyewear worn while in exam room with patient. Patient wearing mask at all times while staff in the room. * Alan Mahan RN - 11/27/2020 7:39 AM EST Associated Order(s): Multi-Layer Compression Dressing Post-Procedure Diagnose(s): Skin ulcer of left calf, limited to breakdown of skin (HCC); Abrasion, right lower leg, initial encounter Multi-layer Compression Wrap Procedure Performed for: Bilateral Performed by:: Clinician Procedural Pain: 0 Bandage Type: Compression Compression Layers: 2 Layers Dressing Applied: No Extremity Location: Below Knee * Alan Mahan RN - 11/27/2020 7:39 AM EST Surgical mask and gloves were worn while in this patient's room. Patient wearing mask at all times while staff in the room. * Manuel Lockett III, DO - 11/27/2020 7:35 AM EST [facility] Note Patient Name: Jeremy Rosas MR #: [id number] : 1970 Physicians: Blayne Costello DO (Family); Dear Blayne Costello DO, It was a pleasure seeing Jeremy Rosas who is a 50 y.o. male, being seen today on 11/27/2020 in the [facility], for Follow up with a chief compaint of left lower leg wound, and new right calf wound. Assessment and Plan: 1. Skin ulcer of left calf, limited to breakdown of skin (HCC) Ambulatory referral to Wound Clinic Dressing 2. Abrasion, right lower leg, initial encounter Dressing 3. Morbid obesity with BMI of 45.0-49.9, adult (HCC) Mr. Rosas has satisfactory healing of the left lateral lower leg wound. There is good epithelizationwith some mild scabbing, but no signs of infection or cellulitis. Unfortunately, his new right lower leg wound needs attention and local treatment as well as compressive therapy. We will apply Prismato the right leg and then TL max to both leg sites and 3M compression wraps to both legs. We will see him back in wound care clinic in 1 week. Follow Up Ordered: Return in about 1 week (around 12/04/2020) for Wound care visit. Manuel Lockett III, DO, CWS HPI Mr. Rosas was seen at the wound care clinic today on November 27, 2020. It has been 1 week since he was seen last. He states he is doing fairly well, though he has a new abrasion and injury to the right lower leg and a mirror image to his left lower leg previous wound. Unfortunately the 3M compression wrap on his left leg slid down to just above the ankle. Most likely was not wrapped high enough. He denies any new fevers or chills or pain or drainage. 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 There is no significant fever or chill from the patient. Physical Examination: Vital Signs: BP (!) 161/76 Pulse 64 Temp 97.6 F (36.4 C) Resp 18 Pulses - Examined and unchanged from previous visit Extremities & Vascular Evaluation - - Edema - Right 1+; Left 1+ lymphedemabilaterally - Chronic stasis changes - Right Lower Extremity unchanged; Left Lower Extremity unchanged - Lipodermatosclerosis - Right Lower Extremity absent; Left Lower Extremity Absent - Varicose Veins - Right Lower Extremity NOT noted; Left Lower Extremity NOT noted LOWER EXTREMITY WOUND EXAM- Wound 11/04/19 1 Acute Cellulitis Lower Leg Left;Lower (Active) Wound Image 11/27/20726 Wound Length (cm) 2.5 cm 11/27/20726 Wound Width (cm) 2 cm 11/27/20726 Wound Depth (cm) 0 cm 11/27/20726 Wound Surface Area (cm^2) 5 cm^2 11/27/20726 Wound Volume (cm^3) 0 cm^3 11/27/20726 Area % Change 66.67 11/27/20726 Tunneling Maximum Distance (cm) 0 cm 11/20/20716 Tunneling Position (o'clock) 0 11/20/20716 Tunneling Maximum Distance (cm) 0 cm 11/20/20716 Tunneling Position (o'clock) 0 11/20/20716 Undermining Maximum Distance (cm) 1 0 cm 11/20/20716 Undermining Starting Position (o'clock) 1 0 11/20/20716 Undermining Ending Position (o'clock) 1 0 11/20/20716 Undermining Maximum Distance (cm) 2 0 cm 11/20/20716 Undermining Starting Position (o'clock) 2 0 11/20/20716 Undermining Ending Position (o'clock) 2 0 11/20/20716 Wound Progress Initial exam 11/20/20716 Non-staged Wound Description Partial thickness 11/20/20716 Drainage Amount Small 11/20/20716 Drainage Description Yellow 11/20/20716 Odor None 11/20/20716 Wound Margin Attached to wound base 11/20/20716 Adherent Yellow Slough % None 11/20/20716 Moist Yellow Slough % None 11/20/20716 Dry Black Eschar % None 11/20/20716 Moist Black Eschar % None 11/20/20716 Epithelialization % 1-25% 11/20/20716 Granulation % 76-100%;[place];Bright red 11/20/20716 Exposed Structure None 11/20/20716 Wound Bed Characteristics Clean;Intact;Granulation tissue 11/20/20716 Earlene-wound Assessment Temperature WNL;[place] 11/20/20716 Treatments Not Applicable 11/20/20716 Hemostasis Not applicable 11/20/20716 Cleansed Soap and water 11/20/20716 Primary Dressing Collagen with silver 11/20/20716 Secondary Dressing Foam 11/20/20716 Compression Dressing Multi-layer wrap 11/20/20716 Wound 11/05/19 Acute Cellulitis Lower Leg Right (Active) Wound Image 11/27/20 07 Wound Length (cm) 2.5 cm 11/27/20725 Wound Width (cm) 2.5 cm 11/27/20725 Wound Surface Area (cm^2) 6.25 cm^2 11/27/20725 Area % Change 0 11/27/20 07 Wound 11/05/19 Acute Other (comment) Calf Left (Active) Wound 11/05/19 Other (comment) Great Toe Anterior;Left (Active) Wound Image 11/27/20726 Wound 11/20/20 Foot (proximal) Left;Plantar (Active) Wound Image 11/27/20726 Wound Length (cm) 1 cm 11/27/20726 Wound Width (cm) 1.2 cm 11/27/20726 Wound Depth (cm) 0.1 cm 11/27/20726 Wound Surface Area (cm^2) 1.2 cm^2 11/27/20726 Wound Volume (cm^3) 0.12 cm^3 11/27/20726 Area % Change -11/27/20726 Tunneling Maximum Distance (cm) 0 cm 11/20/20718 Tunneling Position (o'clock) 0 11/20/20718 Tunneling Maximum Distance (cm) 0 cm 11/20/20718 Tunneling Position (o'clock) 0 11/20/20718 Undermining Maximum Distance (cm) 1 0 cm 11/20/20718 Undermining Starting Position (o'clock) 1 0 11/20/20718 Undermining Ending Position (o'clock) 1 0 11/20/20718 Undermining Maximum Distance (cm) 2 0 cm 11/20/20718 Undermining Starting Position (o'clock) 2 0 11/20/20718 Undermining Ending Position (o'clock) 2 0 11/20/20718 Wound Progress Initial exam 11/20/20718 Non-staged Wound Description Partial thickness 11/20/20718 Drainage Amount None 11/20/20718 Odor None 11/20/20718 Wound Margin Attached to wound base 11/20/20718 Adherent Yellow Slough % None 11/20/20718 Moist Yellow Slough % None 11/20/20718 Dry Black Eschar % None 11/20/20718 Moist Black Eschar % None 11/20/20718 Epithelialization % None 11/20/20718 Granulation % 1-25%;[place] 11/20/20718 Exposed Structure None 11/20/20718 Wound Bed Characteristics Clean;Intact;Granulation tissue;White 11/20/20718 Earlene-wound Assessment Temperature WNL;Moist;Maceration 11/20/20718 Treatments Not Applicable 11/20/20718 Hemostasis Not applicable 11/20/20718 Cleansed Soap and water 11/20/20718 Primary Dressing Not applicable 11/20/20718 Secondary Dressing Not applicable 11/20/20718 Compression Dressing Multi-layer wrap 11/20/20718 * No LDAs found * Left lower leg wound thin epithelialization with some mild scabbing present. It measures approximately 3.5 x 3 cm with very superficial depth. No erythema or cellulitis noted. Right lower leg wound has fresh wound and abrasion measuring approximately 3 x 2.5 cm. It appears to be just a dermal layer that is involved and the epidermal layer is peeled off. Good granulation isnoted. No signs of infection or cellulitis is noted. Past History: Unchanged from previous visit Allergy Information: I have reviewed the patient's allergies. Patient has no known allergies. Review of Systems - Negative except the ones mentioned in the HPI. * Carol Kaufman PSA - 11/27/2020 7:30 AM EST Patient called today for COVID-19 screening regarding upcoming appointment in wound clinic. Have you been in close contact with anyone confirmed to have coronavirus/COVID- 19 in the past 14 days? No Have you traveled out of state or internationally in the past 14 days? No In the last 24 hours have you had any of the following symptoms? Fever over 100 F No Cough No Shortness of breath or difficulty breathing No Chills or repeated shaking with chills No Muscle pain, headache, or sore throat No Any loss of taste or smell No Diarrhea No Patient was reminded at this time wound clinic is not allowing visitors for social distancing purposes. Patient was informed of new procedure to gain access to wound clinic. documented in this encounter* Kia Bowen RN - 12/04/2020 7:51 AM EST Associated Order(s): Multi-Layer Compression Dressing Post-Procedure Diagnose(s): Ulcer of left calf, limited to breakdown of skin (HCC); Abrasion, rightlower leg, initial encounter Multi-layer Compression Wrap Procedure Performed for: Bilat lower legs for edema control Performed by:: Clinician shefali Procedural Pain: 0 Bandage Type: Compression Compression Layers: Multi-layer Dressing Applied: No Extremity Location: Below Knee * Kia Bowen RN - 12/04/2020 7:48 AM EST Surgical mask and gloves, and eyewear worn while in exam room with patient. Patient wearing mask at all times while staff in the room. With alan in full ppe * Manuel Lockett III, DO - 12/04/2020 7:30 AM EST [facility] Note Patient Name: Jeremy Rosas MR #: [id number] : 1970 Physicians: Blayne Costello DO (Family); Dear Blayne Costello DO, It was a pleasure seeing Jeremy Rosas who is a 50 y.o. male, being seen today on 12/04/2020 in the [facility], for Follow up with a chief compaint of left lower leg wound, and right leg abrasion. Assessment and Plan: 1. Ulcer of left calf, limited to breakdown of skin (HCC) Dressing 2. Abrasion, right lower leg, initial encounter Dressing 3. Venous stasis dermatitis of both lower extremities 4. Morbid obesity with BMI of 45.0-49.9, adult ([facility]) Mr. Rosas continues to show satisfactory improvement. His left lower leg ulcer is completely epithelialized, though still rather thin. His right leg abrasion continues show satisfactory epithelizationand it is approximately 50% healed. We will continue with local treatment with Suzi to the right leg and TL max to both legs then 3M compression wraps of both legs. I instructed him to take them off at home next Wednesday morning in order to take a shower before coming to the wound care clinic. Hopefully things will epithelialize well enough that we can get him out of the compression wraps and into compression hose/stockings at that time. We will continue to monitor him clinically. Follow Up Ordered: Return in about 1 week (around 12/11/2020) for Wound care visit. Manuel Lockett III, DO, CWS HPI Mr. Rosas was seen at the wound care clinic on December 04, 2019. It has been 1 week since he was seenlast. He continues to do well. He seems to be pleased with satisfactory healing of his left leg upon dressing change today. His right leg is also improving. No new abrasions are seen. He denies any fevers and chills. He is hopeful to get out of the compression wraps in the near future. Physical Examination: Vital Signs: BP (!) 173/73 Pulse 73 Temp 97.3 F (36.3 C) (Infrared) Resp 16 Pulses - Examined and unchanged from previous visit Extremities & Vascular Evaluation - - Edema - Right Trace; Left Trace subclinical lymphedemabilaterally - Chronic stasis changes - Right Lower Extremity Present; Left Lower Extremity Present - Lipodermatosclerosis - Right Lower Extremity absent; Left Lower Extremity Absent - Varicose Veins - Right Lower Extremity NOT noted; Left Lower Extremity NOT noted LOWER EXTREMITY WOUND EXAM- Wound 11/04/19 1 Acute Cellulitis Lower Leg Left;Lower (Active) Wound Image 12/04/20726 Wound Length (cm) 2.5 cm 11/27/20726 Wound Width (cm) 2 cm 11/27/20726 Wound Depth (cm) 0 cm 11/27/20726 Wound Surface Area (cm^2) 5 cm^2 11/27/20726 Wound Volume (cm^3) 0 cm^3 11/27/20726 Area % Change 66.67 11/27/20726 Tunneling Maximum Distance (cm) 0 cm 11/27/20726 Tunneling Position (o'clock) 0 11/27/20726 Tunneling Maximum Distance (cm) 0 cm 11/27/20726 Tunneling Position (o'clock) 0 11/27/20726 Undermining Maximum Distance (cm) 1 0 cm 11/27/20726 Undermining Starting Position (o'clock) 1 0 11/27/20726 Undermining Ending Position (o'clock) 1 0 11/27/20726 Undermining Maximum Distance (cm) 2 0 cm 11/27/20726 Undermining Starting Position (o'clock) 2 0 11/27/20726 Undermining Ending Position (o'clock) 2 0 11/27/20726 Wound Progress Improving 11/27/20726 Non-staged Wound Description Partial thickness 11/27/20726 Drainage Amount Small 11/27/20726 Drainage Description Yellow 11/27/20726 Odor None 11/27/20726 Wound Margin Attached to wound base 11/20/20716 Adherent Yellow Slough % None 11/27/20726 Moist Yellow Slough % None 11/27/20726 Dry Black Eschar % None 11/27/20726 Moist Black Eschar % None 11/27/20726 Epithelialization % 1-25% 11/27/20726 Granulation % 76-100%;[place] 11/27/20726 Exposed Structure None 11/27/20726 Wound Bed Characteristics Clean;Intact;Granulation tissue 11/27/20726 Earlene-wound Assessment Temperature WNL 11/27/20726 Treatments Not Applicable 11/27/20726 Hemostasis Not applicable 11/27/20726 Cleansed Soap and water 11/27/20726 Primary Dressing Collagen with silver 11/27/20726 Secondary Dressing Gauze pad;Foam 11/27/20726 Compression Dressing Multi-layer wrap 11/27/20726 Wound 11/05/19 Acute Cellulitis Lower Leg Right (Active) Wound Image 12/04/20726 Wound Length (cm) 2.5 cm 11/27/20725 Wound Width (cm) 2.5 cm 11/27/20725 Wound Surface Area (cm^2) 6.25 cm^2 11/27/20725 Area % Change 0 11/27/20725 Tunneling Maximum Distance (cm) 0 cm 11/27/20725 Tunneling Position (o'clock) 0 11/27/20725 Tunneling Maximum Distance (cm) 0 cm 11/27/20725 Tunneling Position (o'clock) 0 11/27/20725 Undermining Maximum Distance (cm) 1 0 cm 11/27/20725 Undermining Starting Position (o'clock) 1 0 11/27/20725 Undermining Ending Position (o'clock) 1 0 11/27/20725 Undermining Maximum Distance (cm) 2 0 cm 11/27/20725 Undermining Starting Position (o'clock) 2 0 11/27/20725 Undermining Ending Position (o'clock) 2 0 11/27/20725 Wound Progress Initial exam 11/27/20725 Non-staged Wound Description Partial thickness 11/27/20725 Drainage Amount Small 11/27/20725 Drainage Description Serous 11/27/20725 Odor None 11/27/20725 Wound Margin Attached to wound base 11/27/20725 Adherent Yellow Slough % None 11/27/20725 Moist Yellow Slough % None 11/27/20725 Dry Black Eschar % None 11/27/20725 Moist Black Eschar % None 11/27/20725 Epithelialization % None 11/27/20725 Granulation % 76-100%;[place] 11/27/20725 Exposed Structure None 11/27/20725 Wound Bed Characteristics Clean;Intact;Granulation tissue 11/27/20725 Earlene-wound Assessment Temperature WNL 11/27/20725 Treatments Not Applicable 11/27/20725 Hemostasis Not applicable 11/27/20725 Cleansed Soap and water 11/27/20725 Primary Dressing Collagen with silver 11/27/20725 Secondary Dressing Gauze pad;Foam;Dry gauze 11/27/20725 Compression Dressing Multi-layer wrap 11/27/20725 Wound 11/05/19 Acute Other (comment) Calf Left (Active) * No LDAs found * Right leg abrasion is diminished by approximately 50% with regards to size. It measures approximately 2 cm x 1 cm with good epithelization. The remaining previous ulcer and wound is completely epithelialized though still rather thin. The left leg abrasion/wound is completely epithelialized though still rather thin in its depth. No signs of infection or cellulitis is noted. Past History: Unchanged from previous visit Allergy Information: I have reviewed the patient's allergies. Patient has no known allergies. Review of Systems - Negative except the ones mentioned in the HPI. * Norberto Mariscal PSA - 12/04/2020 7:30 AM EST Patient called today for COVID-19 screening regarding upcoming appointment in wound clinic. Have you been in close contact with anyone confirmed to have coronavirus/COVID- 19 in the past 14 days? No Have you traveled out of state or internationally in the past 14 days? No In the last 24 hours have you had any of the following symptoms? Fever over 100 F No Cough No Shortness of breath or difficulty breathing No Chills or repeated shaking with chills No Muscle pain, headache, or sore throat No Any loss of taste or smell No Diarrhea No Patient was reminded at this time wound clinic is not allowing visitors for social distancing purposes. Patient was informed of new procedure to gain access to wound clinic. documented in this encounter* Mary Lou Ozuna RN - 12/11/2020 7:46 AM EST This RN wore a mask and gloves while doing patient care. Patient wearing mask at all times while staff in the room. * Mary Lou Ozuna RN - 12/11/2020 7:45 AM EST Associated Order(s): Multi-Layer Compression Dressing Post-Procedure Diagnose(s): Abrasion, right lower leg, subsequent encounter; Contusion of left lower leg, initial encounter; Venous stasis dermatitis of both lower extremities; Morbid obesity with BMI of 45.0-49.9, adult (HCC) Multi-layer Compression Wrap Procedure Performed for: KAILASH-B/L LEGS Performed by:: Clinician EDEMA Procedural Pain: 0 Bandage Type: Compression Compression Layers: 2 Layers Dressing Applied: No Extremity Location: Below Knee * Manuel Lockett III, DO - 12/11/2020 7:26 AM EST [facility] Note Patient Name: Jeremy Rosas MR #: [id number] : 1970 Physicians: Blayne Costello DO (Family); Dear Blayne Costello DO, It was a pleasure seeing Jeremy Rosas who is a 50 y.o. male, being seen today on 12/11/2020 in the [facility], for Follow up with a chief compaint of abrasion right lower extremity, and ulcer left calf. Assessment and Plan: 1. Abrasion, right lower leg, subsequent encounter Dressing 2. Contusion of left lower leg, initial encounter Dressing 3. Venous stasis dermatitis of both lower extremities 4. Morbid obesity with BMI of 45.0-49.9, adult (HCC) Mr. Rosas shows some no stagnant see to the right lower leg ulcer. He took the dressings off as instructed this morning and took a shower which helped. Unfortunately, he had fallen and abraded and injured his left lower leg approxi- 2 to 3 days ago. He has a nice contusion left lower leg with some ecchymosis and mild erythema, but no signs of infection or open wounds other than abrasion on the leftkneecap. We will continue with compressive therapy since he has significant edema on both legs. We will see him back in wound care clinic in 1 week for dressing change, then I will see him back in wound care clinic in 2 weeks. If there are any problems in the interval, he is to contact us. Follow Up Ordered: Return in about 1 week (around 12/18/2020) for Wound care visit. Manuel Lockett III, DO, CWS HPI Mr. Rosas was seen at the wound care clinic on December 11, 2020. It has been 1 week since he was seen last. He had pression wraps on both legs for the past week and took them off earlier today take a shower. He states he is doing fairly well, though he does comment that he fell at home approximately2 to 3 days ago and has a nice abrasion to the left patella as well as ecchymosis and bruising and mild erythema and tender left anterior tibial area. He states his left calf wound is healed satisfactory. He denies any fevers and chills. Physical Examination: Vital Signs: BP 117/76 Pulse 65 Temp 98.3 F (36.8 C) Resp 16 SpO2 96% Pulses - Examined and unchanged from previous visit Extremities & Vascular Evaluation - - Edema - Right 2+; Left 2+ subclinical lymphedemabilaterally - Chronic stasis changes - Right Lower Extremity Present; Left Lower Extremity Present - Lipodermatosclerosis - Right Lower Extremity absent; Left Lower Extremity Absent - Varicose Veins - Right Lower Extremity NOT noted; Left Lower Extremity NOT noted LOWER EXTREMITY WOUND EXAM- Wound 11/04/19 1 Acute Cellulitis Lower Leg Left;Lower (Active) Wound Image 12/11/20 07 Wound Length (cm) 2.5 cm 11/27/20 07 Wound Width (cm) 2 cm 11/27/20 07 Wound Depth (cm) 0 cm 11/27/20 07 Wound Surface Area (cm^2) 5 cm^2 11/27/20 07 Wound Volume (cm^3) 0 cm^3 11/27/20726 Area % Change 66.67 11/27/20726 Tunneling Maximum Distance (cm) 0 cm 12/04/20726 Tunneling Position (o'clock) 0 12/04/20726 Tunneling Maximum Distance (cm) 0 cm 12/04/20726 Tunneling Position (o'clock) 0 12/04/20726 Undermining Maximum Distance (cm) 1 0 cm 12/04/20726 Undermining Starting Position (o'clock) 1 0 12/04/20726 Undermining Ending Position (o'clock) 1 0 12/04/20726 Undermining Maximum Distance (cm) 2 0 cm 12/04/20726 Undermining Starting Position (o'clock) 2 0 12/04/20726 Undermining Ending Position (o'clock) 2 0 12/04/20726 Wound Progress Improving 12/04/20726 Non-staged Wound Description Partial thickness 11/27/20726 Drainage Amount None 12/04/20726 Drainage Description Yellow 11/27/20726 Odor None 12/04/20726 Wound Margin Attached to wound base 11/20/20716 Adherent Yellow Slough % None 12/04/20726 Moist Yellow Slough % 1-25% 12/04/20726 Dry Black Eschar % None 12/04/20726 Moist Black Eschar % None 12/04/20726 Epithelialization % None 12/04/20726 Granulation % None 12/04/20726 Exposed Structure None 11/27/20726 Wound Bed Characteristics Clean;Dry;Intact 12/04/20726 Earlene-wound Assessment Ecchymosis;Edema 12/11/20719 Treatments Multi-layer wrap removed;Removal of 7 day dressing 12/04/20726 Hemostasis Not applicable 12/04/20726 Cleansed Soap and water 12/04/20726 Primary Dressing Bordered foam dressing (MEPILEX) 12/04/20726 Secondary Dressing Not applicable 12/04/20726 Compression Dressing Multi-layer wrap 12/04/20726 Wound 11/05/19 Acute Cellulitis Lower Leg Right (Active) Wound Image 12/11/20719 Wound Length (cm) 2.5 cm 12/11/20719 Wound Width (cm) 2.5 cm 12/11/20719 Wound Depth (cm) 0.2 cm 12/11/20719 Wound Surface Area (cm^2) 6.25 cm^2 12/11/20719 Wound Volume (cm^3) 1.25 cm^3 12/11/20719 Area % Change 0 12/11/20719 Tunneling Maximum Distance (cm) 0 cm 12/04/20726 Tunneling Position (o'clock) 0 12/04/20726 Tunneling Maximum Distance (cm) 0 cm 12/04/20726 Tunneling Position (o'clock) 0 12/04/20726 Undermining Maximum Distance (cm) 1 0 cm 12/04/20726 Undermining Starting Position (o'clock) 1 0 12/04/20726 Undermining Ending Position (o'clock) 1 0 12/04/20726 Undermining Maximum Distance (cm) 2 0 cm 12/04/20726 Undermining Starting Position (o'clock) 2 0 12/04/20726 Undermining Ending Position (o'clock) 2 0 12/04/20726 Wound Progress Improving 12/04/20726 Non-staged Wound Description Partial thickness 12/04/20726 Drainage Amount Small 12/04/20726 Drainage Description Yellow 12/04/20726 Odor None 12/04/20726 Wound Margin Attached to wound base 12/04/20726 Adherent Yellow Slough % None 12/04/20726 Moist Yellow Slough % None 12/04/20726 Dry Black Eschar % None 12/04/20726 Moist Black Eschar % None 12/04/20726 Epithelialization % 26-50% 12/04/20726 Granulation % 26-50%;[place] 12/04/20726 Exposed Structure None 12/04/20726 Wound Bed Characteristics Clean;Intact;Granulation tissue 12/04/20726 Earlene-wound Assessment Temperature WNL 12/04/20726 Treatments Removal of 7 day dressing;Multi-layer wrap removed 12/04/20726 Hemostasis Not applicable 12/04/20726 Cleansed Soap and water 12/04/20726 Primary Dressing Collagen with silver 12/04/20726 Secondary Dressing Bordered foam dressing (MEPILEX) 12/04/20726 Compression Dressing Multi-layer wrap 12/04/20726 Wound 11/05/19 Acute Other (comment) Calf Left (Active) * No LDAs found * Left calf wound is completely healed. He has a superficial abrasion on the left patella with mild dry eschar. The left lower leg has significant ecchymosis and mild erythema secondary to contusion and fall. Right lateral lower leg wound is shallower. It still measures approximately 3 x 3 cm, but is just into the epidermal layer though it is rather dry. No signs of infection or cellulitis is noted. Edemais noted on both legs +1-2/4. Past History: Unchanged from previous visit Allergy Information: I have reviewed the patient's allergies. Patient has no known allergies. Review of Systems - Negative except the ones mentioned in the HPI. * Kia Bowen RN - 12/11/2020 7:26 AM EST Surgical mask and gloves, and eyewear worn while in exam room with patient. Patient wearing mask at all times while staff in the room. * Carol Kaufman PSA - 12/11/2020 7:15 AM EST Patient called today for COVID-19 screening regarding upcoming appointment in wound clinic. Have you been in close contact with anyone confirmed to have coronavirus/COVID- 19 in the past 14 days? No Have you traveled out of state or internationally in the past 14 days? No In the last 24 hours have you had any of the following symptoms? Fever over 100 F No Cough No Shortness of breath or difficulty breathing No Chills or repeated shaking with chills No Muscle pain, headache, or sore throat No Any loss of taste or smell No Diarrhea No Patient was reminded at this time wound clinic is not allowing visitors for social distancing purposes. Patient was informed of new procedure to gain access to wound clinic. documented in this encounter* Alan Mahan RN - 12/18/2020 7:39 AM EST Associated Order(s): Multi-Layer Compression Dressing Post-Procedure Diagnose(s): Abrasion, right lower leg, subsequent encounter; Venous stasis dermatitis of both lower extremities Multi-layer Compression Wrap Procedure Performed for: Bilateral Performed by:: Clinician Procedural Pain: 0 Bandage Type: Compression Compression Layers: 2 Layers Dressing Applied: No Extremity Location: Below Knee * Carol Kaufman PSA - 12/18/2020 7:15 AM EST Patient called today for COVID-19 screening regarding upcoming appointment in wound clinic. Pt did not answer. Message was left stating to call wound clinic if any of these answers are yes. Have you been in close contact with anyone confirmed to have coronavirus/COVID- 19 in the past 14 days? NO Have you traveled out of state or internationally in the past 14 days? NO In the last 24 hours have you had any of the following symptoms? Fever over 100 F NO Cough NO Shortness of breath or difficulty breathing NO Chills or repeated shaking with chills NO Muscle pain, headache, or sore throat NO Any loss of taste or smell NO Diarrhea NO Patient was reminded at this time wound clinic is not allowing visitors for social distancing purposes. Patient was informed of new procedure to gain access to wound clinic. documented in this encounter* Manuel Lockett III, DO - 12/25/2020 7:40 AM EST [facility] Note Patient Name: Jeremy Rosas MR #: [id number] : 1970 Physicians: Blayne Costello DO (Family); Dear Blayne Costello DO, It was a pleasure seeing Jeremy Rosas who is a 50 y.o. male, being seen today on 12/25/2020 in the [facility], for Follow up with a chief compaint of venous stasis changes bilateral extremities and abrasion right leg. Assessment and Plan: 1. Abrasion, right lower leg, subsequent encounter Dressing 2. Venous stasis dermatitis of both lower extremities Dressing 3. Morbid obesity with BMI of 45.0-49.9, adult ([facility]) Mr. Rosas continues to show satisfactory improvement. The abrasion on his right lower leg is approximately 3 x 5 mm and very superficial. There is no evidence of infection. We will continue with compressive therapy with Tubigrip F stockings, and instructions were given to the patient to obtain 20 to30 mm gradient compression hose. He is healed satisfactory that we can discharge him from the woundcare clinic and see him on an as-needed basis. If there are problems, he is to contact us. Follow Up Ordered: Return if symptoms worsen or fail to improve. Manuel Lockett III, , CWS HPI Mr. Rosas was seen at the wound care clinic on December 25, 2020. It has been 1 week since he had dressing changes with nursing, and 2 weeks since he saw Dr. Lockett. He states he is doing well. Denies any new complaints. Denies any pain or drainage or evidence of infection or cellulitis. He continuesto tolerate the compression wraps at the present time. Physical Examination: Vital Signs: BP (!) 169/75 Pulse 74 Temp 97 F (36.1 C) (Infrared) Resp 16 Pulses - Examined and unchanged from previous visit Extremities & Vascular Evaluation - - Edema - Right Trace; Left Trace no eveidence of lymphedemabilaterally - Chronic stasis changes - Right Lower Extremity Present; Left Lower Extremity Present - Lipodermatosclerosis - Right Lower Extremity absent; Left Lower Extremity Absent - Varicose Veins - Right Lower Extremity NOT noted; Left Lower Extremity NOT noted LOWER EXTREMITY WOUND EXAM- Wound 11/04/19 1 Acute Cellulitis Lower Leg Left;Lower (Active) Wound Image 12/18/20 07 Wound Length (cm) 2.5 cm 11/27/20726 Wound Width (cm) 2 cm 11/27/20726 Wound Depth (cm) 0 cm 11/27/20726 Wound Surface Area (cm^2) 5 cm^2 11/27/20726 Wound Volume (cm^3) 0 cm^3 11/27/20726 Area % Change 66.67 11/27/20726 Tunneling Maximum Distance (cm) 0 cm 12/18/20718 Tunneling Position (o'clock) 0 12/18/20718 Tunneling Maximum Distance (cm) 0 cm 12/18/20718 Tunneling Position (o'clock) 0 12/18/20718 Undermining Maximum Distance (cm) 1 0 cm 12/18/20718 Undermining Starting Position (o'clock) 1 0 12/18/20718 Undermining Ending Position (o'clock) 1 0 12/18/20718 Undermining Maximum Distance (cm) 2 0 cm 12/18/20718 Undermining Starting Position (o'clock) 2 0 12/18/20718 Undermining Ending Position (o'clock) 2 0 12/18/20718 Wound Progress Improving 12/18/20718 Non-staged Wound Description Partial thickness 11/27/20726 Drainage Amount None 12/18/20718 Drainage Description Yellow 11/27/20726 Odor None 12/18/20718 Wound Margin Attached to wound base 12/18/20718 Adherent Yellow Slough % None 12/18/20718 Moist Yellow Slough % None 12/18/20718 Dry Black Eschar % None 12/18/20718 Moist Black Eschar % None 12/18/20718 Epithelialization % 76-100% 12/18/20718 Granulation % None 12/18/20718 Exposed Structure None 12/18/20718 Wound Bed Characteristics Clean;Dry;Intact;Edema;Red 12/18/20718 Earlene-wound Assessment Temperature WNL;Edema 12/18/20718 Treatments Multi-layer wrap removed;Removal of 7 day dressing 12/18/20718 Hemostasis Not applicable 12/18/20718 Cleansed Soap and water 12/18/20718 Primary Dressing Not applicable 12/18/20718 Secondary Dressing Not applicable 12/18/20718 Compression Dressing Multi-layer wrap 12/18/20718 Wound 11/05/19 Acute Cellulitis Lower Leg Right (Active) Wound Image 12/25/20721 Wound Length (cm) 0.3 cm 12/25/20721 Wound Width (cm) 0.1 cm 12/25/20721 Wound Depth (cm) 0.01 cm 12/25/20721 Wound Surface Area (cm^2) 0.03 cm^2 12/25/20721 Wound Volume (cm^3) 0 cm^3 12/25/20721 Area % Change -98.03 12/25/20721 Wound Healing % 100 12/25/20721 Tunneling Maximum Distance (cm) 0 cm 12/25/20721 Tunneling Position (o'clock) 0 12/25/20721 Tunneling Maximum Distance (cm) 0 cm 12/25/20721 Tunneling Position (o'clock) 0 12/25/20721 Undermining Maximum Distance (cm) 1 0 cm 12/25/20721 Undermining Starting Position (o'clock) 1 0 12/25/20721 Undermining Ending Position (o'clock) 1 0 12/25/20721 Undermining Maximum Distance (cm) 2 0 cm 12/25/20721 Undermining Starting Position (o'clock) 2 0 12/25/20721 Undermining Ending Position (o'clock) 2 0 12/25/20721 Wound Progress Improving 12/25/20721 Non-staged Wound Description Partial thickness 12/25/20721 Drainage Amount Scant 12/25/20721 Drainage Description Yellow 12/25/20721 Odor None 12/25/20721 Wound Margin Attached to wound base 12/25/20721 Adherent Yellow Slough % None 12/25/20721 Moist Yellow Slough % None 12/25/20721 Dry Black Eschar % None 12/25/20721 Moist Black Eschar % None 12/25/20721 Epithelialization % 76-100% 12/25/20721 Granulation % 1-25%;[place] 12/25/20721 Exposed Structure None 12/25/20721 Wound Bed Characteristics Clean;Dry;Intact;Granulation tissue 12/25/20721 Earlene-wound Assessment Temperature WNL;Edema 12/25/20721 Treatments Removal of 7 day dressing;Multi-layer wrap removed 12/25/20721 Hemostasis Not applicable 12/25/20721 Cleansed Soap and water 12/25/20721 Primary Dressing Collagen with silver 12/18/20718 Secondary Dressing Foam 12/18/20718 Compression Dressing Multi-layer wrap 12/18/20718 Wound 11/05/19 Acute Other (comment) Calf Left (Active) * No LDAs found * Right leg abrasion measures 3 x 5 mm. Very superficial with good epithelization. No signs of infection or cellulitis. Past History: Unchanged from previous visit Allergy Information: I have reviewed the patient's allergies. Patient has no known allergies. Review of Systems - Negative except the ones mentioned in the HPI. * Alan Mahan RN - 12/25/2020 7:25 AM EST Surgical mask and gloves were worn while in this patient's room. Patient wearing mask at all times while staff in the room. * Carol Kaufman PSA - 12/25/2020 7:15 AM EST No Coronavirus/COVID-19 screening was able to be done due to no answer and no voice mail. documented in this encounter Assessments Diagnosis Cellulitis of lower extremity, unspecified laterality Cellulitis Cellulitis and abscess of unspecified site Diagnosis MGUS (monoclonal gammopathy of unknown significance) Monoclonal paraproteinemia Diagnosis Ulcer of left calf, limited to breakdown of skin (HCC)- Primary Venous stasis dermatitis of both lower extremities Morbid obesity with BMI of 45.0-49.9, adult (HCC) Diagnosis Skin ulcer of left calf, limited to breakdown of skin (HCC)- Primary Abrasion, right lower leg, initial encounter Morbid obesity with BMI of 45.0-49.9, adult (HCC) Diagnosis Ulcer of left calf, limited to breakdown of skin (HCC)- Primary Abrasion, right lower leg, initial encounter Venous stasis dermatitis of both lower extremities Morbid obesity with BMI of 45.0-49.9, adult (HCC) Diagnosis Abrasion, right lower leg, subsequent encounter- Primary Contusion of left lower leg, initial encounter Venous stasis dermatitis of both lower extremities Morbid obesity with BMI of 45.0-49.9, adult ([facility]) Diagnosis Venous stasis dermatitis of both lower extremities- Primary Abrasion, right lower leg, subsequent encounter Diagnosis Abrasion, right lower leg, subsequent encounter- Primary Venous stasis dermatitis of both lower extremities Morbid obesity with BMI of 45.0-49.9, adult ([facility]) Instructions * Patient Instructions* Alan Mahan RN - 11/20/2020 7:49 AM EST Apply Suzi, then TL max, then 3M compression wrap to left leg. Keep dressing clean and dry . If dressing gets wet, remove and apply suzi And a dry dressing. Return on next As scheduled. documented in this encounter* Patient Instructions* Alan Mahan RN - 11/27/2020 7:39 AM EST Keep dressings clean and dry. Return in 1 week as scheduled documented in this encounter* Patient Instructions* Kia Bowen RN - 12/04/2020 7:46 AM EST instructed him to take them off at home next Wednesday morning in order to take a shower before coming to the wound care clinic. documented in this encounter* Patient Instructions* Alan Mahan RN - 12/18/2020 7:39 AM EST Keep dressings clean and dry. Return in 1 week as scheduled documented in this encounter* Patient Instructions* Alan Mahan RN - 12/25/2020 7:43 AM EST Apply Triad right lower leg wound, then Mepilex border, then apply Tubigrip F to both legs. Continue to wear compression socks daily, off at nite. Check wound site daily. If wound drains or reopens notify Dr. Lockett's office documented in this encounter Medications Administered Section Active Administered Medications - up to 3 most recent administrations Medication Order MAR Action Action Date Dose Rate Site tropicamide 0.5 % 1 Drop (MYDRIACYL) 1 Drop, BOTH EYES, DIRECTED, Starting on Joleen 12/31/22 at 0900, Until Joleen 12/31/22 at 2058, Administer for dilation Given 12/31/2022 9:00 AM EST 1 Drop Additional Source Comments (unrecognized sect ion and content) No Status Records FoundNo Status Records FoundNo Status Records FoundNo Status Records FoundNo Status Records Found INFORMATION SOURCE (unrecogn ized section and content) DATE CREATED AUTHOR AUTHOR'S ORGANIZ ATION 11/13/2019 [facility] DATE CREATED AUTHOR AUTHOR'S ORGANIZ ATION 11/19/2020 [facility]erg[facility] with [facility] DATE CREATED AUTHOR AUTHOR'S ORGANIZ ATION 12/25/2020 [facility] DATE CREATED AUTHOR AUTHOR'S ORGANIZ ATION 12/31/2022 [facility] Reason for Visit (unrecogniz ed section and content) Status Reason Specialty Diagnoses / Procedures Referre d By Contact Referred To Contact Diagnoses Cellulitis Cellulitis Reason Comments Wound Check Status Reason Specialty Diagnoses / Procedures Referred By Contact Referred To Contact Closed Specialty Services Required/Patient' s Best Interest Wound Care Diagnoses Stasis ulcer of lower extremity, left (HCC) Blayne Menjivar MD [address] [place] [address] Manuel Lockett III, DO [address] [place] [address] Reason Comments Glaucoma Suspect Evaluation Kassie Lloyd MD - 11/04/2019 3:50 PM EST H&P Notes (unrecognized sect ion and content) Kassie Lloyd MD [facility] Hospitalists History and Physical Patient Name:Jeremy Rosas :1970 Admit Date: [id number] Physicians: Physician No (Family); Mamadou Tillman* (Referring) Perpetual Assessment: Jeremy Rosas is a 49 y.o. morbidly obese male who presented from outside hospital on 11/04/2019 due to worsening cellulitis and concern for possible necrotizing fasciitis ASSESSMENT AND PLAN Cellulitis - bilateral lower extremities (see photos from ER note - Hai Pineda - ER SAMUEL) - no sign of necrotizing fasciitis at present - doubt vasculitis as serum complement levels normal - MRI LE done at OSH (images in epic) - Tx initially with Vanco/zyvox, zosyn, clindamycin at OSH - will change to Iv Ancef (suspect strep etiology given appearance) - c/s ID to assist - seen by Ortho team in ER (no need for I&D at present, recommend antibiotics and supportive care) - check LE venous dopplers PORTIA - suspect due to meds at OSH (Cr was 1.0 on admit at OSH but bumped to 3.4 on 11/04) - hold cozaar, lasix (got iv lasix at OSH, on oral lasix at home), Vanco, zosyn - gentle iv fluid challenge Acute on Chronic Venous Insufficiency - exac by underlying cellulitis - had trial of diuresis with iv lasix at OSH but developed PORTIA - hold on further diuresis LORIE Morbid obesity - nocturnal cpap - bmi 57 - lifestyle modification Essential Hypertension - hold cozaar due to PORTIA - prn iv lopressor Code Status: Full DVT Prophylaxis Heparin Subcutaneous Medication Reconciliation Reviewed Comments/Disposition: HISTORY CC: Bilateral redness, swelling of lower legs HPI: Jeremy Rosas is a 49 y.o. morbidly obese male h/o chronic venous insufficiency presented to OSH on 11/01 due to bilateral redness and swelling of lower legs - he was admitted to OSH and treated with iv antibiotics (initially Vancomycin, Zosyn and Clindamycin) along with iv lasix. He developed a rash up to left groin area along with bump in Creatinine (initially 1.0, 3.2 on transfer). Decision was made to transfer pt to [facility] due to concern for necrotizing fasciitis. Seen in ER by Ortho team, MRI reviewed and felt not to have nec fasc, recommend admit medical bed for continued antibiotic tx and supportive care (note Cr bumped to 3.4). He notes chronic issue with venous insufficiency to both legs - but they are currently more red and swollen than usual. 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 He notes mild fever/chills. Denies any nausea or vomiting. ROS: > > > > > > > > > > The following system(s) were reviewed. Pertinent positive and negative findings are noted in the HPI. [x] Const [x] Eyes [x] ENT [x] Resp [x] CV [x] GI [x] [x] Neuro [x] Musc [x] Skin [x] Psych [x] Endo [x] Allergy [x] Heme/Lymph PMH/PSH/SH/FH: Past Medical History: Diagnosis Date GERD (gastroesophageal reflux disease) Glaucoma Hyperlipidemia Hypertension Peripheral vascular disease (HCC) Past Surgical History: Procedure Laterality Date HERNIA REPAIR umbilical Family History Problem Relation Age of Onset Hypertension Father Diabetes Father Other (stents) Father Social History Socioeconomic History Marital status: Single Spouse name: Not on file Number of children: Not on file Years of education: Not on file Highest education level: Not on file Occupational History Not on file Social Needs Financial resource strain: Not on file Food insecurity Worry: Not on file Inability: Not on file Transportation needs Medical: Not on file Non-medical: Not on file Tobacco Use Smoking status: Never Smoker Smokeless tobacco: Never Used Substance and Sexual Activity Alcohol use: Never Frequency: Never Drug use: Never Sexual activity: Not on file Lifestyle Physical activity Days per week: Not on file Minutes per session: Not on file Stress: Not on file Relationships Social connections Talks on phone: Not on file Gets together: Not on file Attends buddhist service: Not on file Active member of club or organization: Not on file Attends meetings of clubs or organizations: Not on file Relationship status: Not on file Other Topics Concern Not on file Social History Narrative Not on file Living Arrangements: Alone Support Systems: Family members Functional Status: Independent Allergy Information: I have reviewed the patient's allergies. Patient has no known allergies. Home Medications: Outpatient Medications Marked as Taking for the 11/04/19 encounter (Hospital Encounter) Medication Sig FLAXSEED ORAL Take 1 capsule by mouth daily . furosemide (LASIX) 40 MG tablet Take 40 mg by mouth 2 (two) times a day . lansoprazole (PREVACID) 30 MG capsule Take 30 mg by mouth every night at bedtime . losartan (COZAAR) 100 MG tablet Take 100 mg by mouth daily . omega 1-jpb-jui-fish oil (Fish Oil) 300-1,000 mg cap Take 1 capsule by mouth daily . pravastatin (PRAVACHOL) 10 MG tablet Take 10 mg by mouth every night at bedtime . PHYSICAL EXAMINATION > > > > > > > > Vital Signs: Temp: [97.9 F (36.6 C)-98.1 F (36.7 C)] 98.1 F (36.7 C) Heart Rate: [67-80] 77 Resp: [16-19] 16 BP: (106-138)/(46-71) 138/71 GENERAL: NAD EYES: Conjunctiva and sclera clear, EOMI, PERRL ENT: Hearing intact. Pharynx clear. NECK: No adenopathy or thyromegaly. CV: RRR, no murmur. No JVD. No edema. RESP: Clear, no rales, rhonchi, wheezes or increase in respiratory effort, no use of accessory muscles. GI: Obese, Non-distended, +BS, soft, non-tender. No guarding, masses or rebound MUSC: Normal ROM without deformity. SKIN: Bilateral LE erythema (see photos from ER note - Hai Pineda - [facility]) NEURO: Alert, Ox3. Grossly normal motor and sensory exam. No focal deficits. PSYCH: Mood and affect are appropriate. Cooperative. Laboratory and Additional Data Acquired or Reviewed: [x] Laboratory [x] Transcriptions [x] Radiology [] Microbiology [x] Cardiology [x] Outside Records [x] Medications [] Family Time Spent: 70 mins documented in this encounter Wiliam Matamoros MD - 11/07/2019 2:13 PM EST Procedure Notes (unrecognize d section and content) Procedure(s): BIOPSY Pre-Procedure Diagnose(s): Rash Post-Procedure Diagnose(s): Rash Skin at the left dorsum of the hand was cleaned with chlorhexadine, injected locally with lidocaine. A punch biopsy was taken of the rash, some bleeding was noted at time of procedure. Sample placed in formalin container and sent to pathology. Punch biopsy site dressed. Patient tolerated procedure well. Wiliam Matamoros MD Pager: [phone] sr. payroll manager pager (5pm-6am, weekends): [phone] documented in this encounter Michelle Bazan MSW LSW - 11/09/2019 7:18 PM Yelitza Guillen MD - 11/05/2019 12:37 PM Wendy Langley DO - 11/05/2019 12:10 PM EST Consult Notes (unrecognized section and content) Associated Order(s): IP CONSULT TO CARE MANAGEMENT COMPLEX DISCHARGE Date: 11/09/2019 Time: 7:18 PM Patient Name: Jeremy Rosas Date of : 1970 Sex: Male [facility] consulted to assist with transfer to [facility] for pt. Per bedside RN, pt now with a bed available at [facility] and ready for transport. [facility] scheduled transport with [facility] for this evening at 9:30PM to [facility]. Transport packet completed and given to bedside RN. No other needs identified at this time. Discharge Plan Shared UM/CC and RN Source of Information: Patient Living Arrangements: Alone Support Systems: Family members Functional Status: Independent Type of Residence: Private residence Prior to Admission Home Care Services: No Insurance Coverage for Prescriptions: Yes Discharge Readiness Expected Discharge Date: 11/09/19 [facility] Disposition D/C Disposition: Short Term Hospital Agency/Destination: [facility] Same As Recommended : yes Transportation Type: Ambulance Transportation Company/Agency Name: Other (Comment)([facility]) Associated Order(s): IP CONSULT TO NEPHROLOGY NEPHROLOGY CONSULTATION NOTE [facility] Patient Name: Jeremy Rosas MR#: [id number] : 1970 Admit Date: [id number] Physicians: Physician No (Family); Mamadou Tillman* (Referring) Attending: [facility] Primary Car* Perpetual Assessment: 49 y.o. male with a history of hypertension (on Losartan), obesity, obstructive sleep apnea presenting with concern for necrotizing fasciitis of his bilateral legs. He has chronic venous insufficiency, on Lasix at home. Per notes, admission creatinine of 1.0. We are asked to manage acute kidney injury. Problems and Plan: Assessment: PORTIA, possibly due to the infection and shifts in blood pressure while on ARB, vs Vancomycin toxicity Baseline creatinine 1.0 Hypertension, controlled Cellulitis Chronic venous insufficiency Chronic edema Plan: Agree with holding Losartan Continue MIV for the time being Check Vancomycin level for completeness Doubt infectious mediated glomerulonephritis, only minimal hematuria and no proteinuria No acute indication for HD today Supportive care Renally adjust medications Comments: Thank you for the consultation. Call if questions arise. Will follow. Yelitza Ferreira MD [facility] [phone] (cell) [phone] (office, after 5pm/weekends/holidays) History of Presenting Illness: Chief complaint: PORTIA Subjective: Jeremy Rosas is a 49 y.o. male with a history of hypertension (on Losartan), obesity, obstructive sleep apnea presenting with concern for necrotizing fasciitis of his bilateral legs. He has chronic venous insufficiency, on Lasix at home. Per notes, admission creatinine of 1.0. Creatinine bumped to 3.4 yesterday and 4.1 today. Did get a dose of IV Lasix at outside hospital. Treated initially with Vancomycin and Zosyn at outside hospital (has been there for 3-4 days, unsure how many doses). Currently on Ancef. Had a drop in blood pressure to 106/57 overnight. He denies getting treatment with Bactrim or taking NSAIDs prior to admission. He is urinating OK, denies change in color or decrease in volume. He can't recall if his blood pressure dropped at outside hospital. He doesn't think that he had any CT with IV contrast at [place]. The patient denies nausea, vomiting, confusion, itching, twitching. The patient denies shortness of breath. He is not eating as well. The patient denies a family history of CKD or electrolyte problems. Review of Systems: The following system(s) were reviewed. Pertinent positive and negative findings are noted in the HPI, otherwise ROS negative. [x] Const [x] Eyes [x] ENT [x] Resp [x] CV [x] GI [x] [x] Neuro [x] Musc [x] Skin [] Psych [] Endo [x] Allergy [] Heme/Lymph [] Unable to obtain due to intubation and/or neurologic status. Objective Findings: Vitals: BP 133/75 (BP Location: Left arm, Patient Position: Sitting) Pulse 81 Temp 98 F (36.7 C) (Oral) Resp 16 Ht 5' 9 Wt (!) 176.9 kg (390 lb) SpO2 94% BMI 57.59 kg/m Intake/Output last 3 shifts: Intake/Output Summary (Last 24 hours) at 11/05/2019 1237 Last data filed at 11/05/2019 1200 Gross per 24 hour Intake 1472.12 ml Output 400 ml Net 1072.12 ml I/O last 3 completed shifts: In: - Out: 400 [Urine:400] Wt Readings from Last 3 Encounters: 11/04/19 (!) 176.9 kg (390 lb) Physical Examination: General: Age appropriate morbidly overweight white male, NAD. HEENT: Normocephalic, no scleral icterus. Neck: Thick. Heart: Regular, no murmur, no rub/gallop. Lungs: Clear to ascultation, no rales/wheezing/rhonchi. Abdomen: Soft, nontender. Extremities: 1+ bilateral edema. Rubor of both legs below knees. Skin: Warm, dry, normal turgor. Neuro: No myoclonus or tremor. Psych: Awake, alert. Normal affect. : Dark yellow urine in urinal. Results/Medications Reviewed: 11/05/19 12:37 PM: Laboratory, Microbiology, Pathology, Radiology, Cardiology, Medications and Transcriptions Scheduled Meds: ceFAZolin (ANCEF) IVPB 2,000 mg Intravenous Q8H heparin (porcine) 5,000 Units Subcutaneous Q8H AMBER pantoprazole 40 mg Oral Daily pravastatin 10 mg Oral Nightly senna-docusate 1 tablet Oral BID sodium chloride (PF) 10 mL Intracatheter Q8H AMBER Continuous Infusions: sodium chloride 0.9 % 75 mL/hr (11/05/19 1200) Laboratory: Results from last 7 days Lab Units 11/05/19 0329 11/04/19 1417 WBC K/mcL 13.69* 9.61 HGB g/dL 11.4* 12.5* HCT % 34.8* 38.0* PLT K/mcL 217 228 Results from last 7 days Lab Units 11/05/19 0329 11/04/19 1417 SODIUM mmol/L 133* 134* POTASSIUM mmol/L 4.0 4.1 CHLORIDE mmol/L 99 96* BICARB mmol/L 21 24 BUN mg/dL 57* 52* CREATININE mg/dL 4.06* 3.42* EGFR mL/min/1.73 m2 16* 20* GLUCOSE mg/dL 105* 114* CALCIUM mg/dL 8.3* 8.8 Urinalysis Results from last 7 days Lab Units 11/05/19 0444 11/05/19 0442 COLOR, UR -- Yellow CLARITY, UR -- Hazy* SPEC GRAV -- 1.013 PH, UR -- 5.0 GLUCOSE, UR mg/dL -- Negative KETONES, UR mg/dL -- Negative BILIRUBIN, UR -- Negative UROBILINOGEN, UR mg/dL -- <2.0 BLOOD, UR -- Small* NITRITE, UR -- Negative LEUK JEWEL, UR -- Negative WBC, UR /hpf -- 5 BACTERIA, UR /hpf -- Few* CREATININE UR mg/dL 140.5 -- Allergies: I have reviewed the patient's allergies. Patient has no known allergies. Home Medications: Prior to Admission medications Medication Sig Start Date End Date Taking? Authorizing Provider FLAXSEED ORAL Take 1 capsule by mouth daily . Yes Historical Provider, furosemide (LASIX) 40 MG tablet Take 40 mg by mouth 2 (two) times a day . Yes Historical Provider, lansoprazole (PREVACID) 30 MG capsule Take 30 mg by mouth every night at bedtime . Yes Historical Provider, losartan (COZAAR) 100 MG tablet Take 100 mg by mouth daily . Yes Historical Provider, omega 8-bdt-byf-fish oil (Fish Oil) 300-1,000 mg cap Take 1 capsule by mouth daily . Yes Historical Provider, pravastatin (PRAVACHOL) 10 MG tablet Take 10 mg by mouth every night at bedtime . Yes Historical Provider, History: Past Medical History: Diagnosis Date GERD (gastroesophageal reflux disease) Glaucoma Hyperlipidemia Hypertension Peripheral vascular disease (HCC) Past Surgical History: Procedure Laterality Date HERNIA REPAIR umbilical Family History Problem Relation Age of Onset Hypertension Father Diabetes Father Other (stents) Father Social History Socioeconomic History Marital status: Single Spouse name: Not on file Number of children: Not on file Years of education: Not on file Highest education level: Not on file Occupational History Not on file Social Needs Financial resource strain: Not on file Food insecurity Worry: Not on file Inability: Not on file Transportation needs Medical: Not on file Non-medical: Not on file Tobacco Use Smoking status: Never Smoker Smokeless tobacco: Never Used Substance and Sexual Activity Alcohol use: Never Frequency: Never Drug use: Never Sexual activity: Not on file Lifestyle Physical activity Days per week: Not on file Minutes per session: Not on file Stress: Not on file Relationships Social connections Talks on phone: Not on file Gets together: Not on file Attends buddhist service: Not on file Active member of club or organization: Not on file Attends meetings of clubs or organizations: Not on file Relationship status: Not on file Other Topics Concern Not on file Social History Narrative Not on file Living Arrangements: Alone Support Systems: Family members Functional Status: Independent Associated Order(s): IP CONSULT TO INFECTIOUS DISEASES INFECTIOUS DISEASE CONSULT NOTE ASSESSMENT: Jeremy Rosas is a 49 y.o. male with a PMH of morbid obesity, GERD, HTN, HLD, PVD, and venous insufficiency. He presented on 11/04/2019 as a transfer from [facility] for cellulitis. 1. Rash: Consider drug rash, vasculitis, autoimmune process. Obtain CBC/diff and repeat LFTs now to look for LFT elevations/eosinophilia which could be present with DRESS. The presence of significant PORTIA could go along with a drug reaction or systemic process. 2. Concern for cellulitis: Somewhat difficult to evaluate now given diffuse rash, but he had no leukocytosis or fever upon presentation to [place], and he didn't have any infectious type symptoms. Furthermore, cellulitis is almost never bilateral. His photos from yesterday look like more chronic changes to me, but this is somewhat challenging to evaluate. Given relatively low suspicion for infection, potential drug reaction, and the fact that his blood cultures are NGTD, will hold further antibiotic therapy for now. 3. Chronic venous insufficiency 4. PORTIA: Estimated Creatinine Clearance: 22.3 mL/min (A) (by C-G formula based on SCr of 4.06 mg/dL (H)). RECOMMENDATIONS: Diagnostics: Follow up pending cultures here and at [place] (lab number: [id number]) Consider punch biopsy to evaluate rash further (family medicine or general surgery can perform if consulted) Repeat CBC with diff and LFTs now Syphilis Ab HIV Ab Hepatitis panel ANCA MEAGHAN C3/C4 Therapeutics: Hold further antibiotic therapy Discussed with Dr. Kim Please call with questions. I will not be rounding at [facility] this coming week, I will ask one of my partners to follow up. Wendy Rodriguez, DO [facility] Reason for Consult: Please assist with antibiotic recommendations; 49 y/o male with bilateral LE cellulitis, not improving on clinda and zosyn at [facility] Chief Complaint: redness/pain of the distal BL LEs HPI: Jeremy Rosas is a 49 y.o. male with a PMH of morbid obesity, GERD, HTN, HLD, PVD, and venous insufficiency. He presented on 11/04/2019 as a transfer from [facility] for cellulitis. At [place], he had a normal WBC and was afebrile. He received Linezolid, Clindamycin, and Zosyn prior to transfer. He had an MRI of the LLE which showed soft tissue swelling. Upon presentation to [facility], he was afebrile with a WBC of 10K. He has since spiked a fever to 100.8. No cultures have been collected here. He is receiving Cefazolin. His CRP is 144, and his ESR is 52. He was evaluated by ortho, and they have low suspicion for necrotizing fasciitis and recommended continued medical therapy. I spoke with [place] [facility]. They obtained blood cultures and a LLE culture there prior to transfer, and all cultures are currently no growth to date. Jeremy tells me that earlier this week, he felt completely normal. He got new muck boots and had been wearing them and noticed that his distal BL LEs were red and painful and thought that it was probably related to his boots. He had cellulitis once years ago and was worried he had it again, so he went to [place]. He did not have any fevers, chills, or sweats. He felt systemically well up until the past day (since leaving [place]). Now, he is feeling more fatigued and achy. He has no other specific complaints. On exam, he has a diffuse rash. He is very itchy. His LEs don't actually hurt. Of note, he struggles to provide a detailed history and is difficult to keep on subject. Jeremy lives in [place] not far from his parent's farm. 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 He doesn't interact with the farm animals, and he doesn't drink unpasteurized milk. He doesn't smoke and denies illicit drug use. He states that he hasn't been sexually active in about 6 years and denies any history of STIs. Review of Systems Review of Systems Constitutional: Positive for fatigue. Negative for chills and fever. Respiratory: Positive for cough (intermittent, dry). Negative for shortness of breath. Cardiovascular: Negative for chest pain and leg swelling. Gastrointestinal: Negative for diarrhea, nausea and vomiting. Genitourinary: Negative for dysuria, frequency and urgency. Musculoskeletal: Negative for arthralgias and myalgias. Skin: Positive for rash (he did not realize how extensive this is. It itches.). Negative for wound. Neurological: Negative for dizziness and weakness. Past Medical History: Diagnosis Date GERD (gastroesophageal reflux disease) Glaucoma Hyperlipidemia Hypertension Peripheral vascular disease (HCC) Past Surgical History: Procedure Laterality Date HERNIA REPAIR umbilical Social History Socioeconomic History Marital status: Single Spouse name: Not on file Number of children: Not on file Years of education: Not on file Highest education level: Not on file Occupational History Not on file Social Needs Financial resource strain: Not on file Food insecurity Worry: Not on file Inability: Not on file Transportation needs Medical: Not on file Non-medical: Not on file Tobacco Use Smoking status: Never Smoker Smokeless tobacco: Never Used Substance and Sexual Activity Alcohol use: Never Frequency: Never Drug use: Never Sexual activity: Not on file Lifestyle Physical activity Days per week: Not on file Minutes per session: Not on file Stress: Not on file Relationships Social connections Talks on phone: Not on file Gets together: Not on file Attends buddhist service: Not on file Active member of club or organization: Not on file Attends meetings of clubs or organizations: Not on file Relationship status: Not on file Other Topics Concern Not on file Social History Narrative Not on file Family History Problem Relation Age of Onset Hypertension Father Diabetes Father Other (stents) Father Medications Prior to Admission Medication Sig Dispense Refill Last Dose FLAXSEED ORAL Take 1 capsule by mouth daily . furosemide (LASIX) 40 MG tablet Take 40 mg by mouth 2 (two) times a day . lansoprazole (PREVACID) 30 MG capsule Take 30 mg by mouth every night at bedtime . losartan (COZAAR) 100 MG tablet Take 100 mg by mouth daily . omega 1-rqz-mmk-fish oil (Fish Oil) 300-1,000 mg cap Take 1 capsule by mouth daily . pravastatin (PRAVACHOL) 10 MG tablet Take 10 mg by mouth every night at bedtime . Current Medications: ceFAZolin (ANCEF) IVPB 2,000 mg Intravenous Q8H heparin (porcine) 5,000 Units Subcutaneous Q8H AMBER pantoprazole 40 mg Oral Daily pravastatin 10 mg Oral Nightly senna-docusate 1 tablet Oral BID sodium chloride (PF) 10 mL Intracatheter Q8H AMBER No Known Allergies OBJECTIVE FINDINGS: Vital Signs (24hrs): Temp: [97.4 F (36.3 C)-100.8 F (38.2 C)] 98 F (36.7 C) Heart Rate: [73-91] 81 Resp: [14-19] 16 BP: (123-144)/(46-75) 133/75 Physical Exam Constitutional: He appears well-developed and well-nourished. No distress. HENT: Head: Normocephalic and atraumatic. Mouth/Throat: No oropharyngeal exudate. No oral/mucous membrane lesions Eyes: EOM are normal. No scleral icterus. Neck: Normal range of motion. Neck supple. Cardiovascular: Normal rate and regular rhythm. No murmur heard. Pulmonary/Chest: Effort normal. No respiratory distress. Challenging exam No wheezing Decreased breath sounds at the bases Requiring NC oxygen Abdominal: Soft. Bowel sounds are normal. There is no abdominal tenderness. Neurological: He is alert. Skin: Skin is warm. Rash noted. Psychiatric: He has a normal mood and affect. His behavior is normal. Photos from yesterday: Photos from today: Diagnostic Data: Lab Results Component Value Date WBC 13.69 (H) 11/05/2019 HGB 11.4 (L) 11/05/2019 HCT 34.8 (L) 11/05/2019 MCV 86.1 11/05/2019 PLT 217 11/05/2019 RBC 4.04 (L) 11/05/2019 Lab Results Component Value Date NEUTROABS 7.51 (H) 11/04/2019 Estimated Creatinine Clearance: 22.3 mL/min (A) (by C-G formula based on SCr of 4.06 mg/dL (H)). Lab Results Component Value Date CRP 144.2 (H) 11/04/2019 Lab Results Component Value Date SEDRATE 52 (H) 11/04/2019 CONSULT NOTE Patient Name: Jeremy Rosas Admit Date: [id number] MR #: [id number] : 1970 Physicians: Physician No (Family); Mamadou Tillman* (referring); Arjun Alcantar MD (Orthopedics) Assessment and Plan: Cellulitis 49 y/o male with chronic venous stasis who has bilateral LE cellulitis -No indication for surgical intervention at this time -Low concern for necrotizing infection. Symptoms have been present for 4 days. LRINEC score = 1. Patient is very minimally painful. -Will consult ID for IV antibiotic recommendations -No obvious fluctuance or consolidated area for drainage. MRI of LLE at [facility] with nonspecific swelling, but no organized fluid collection. -Supportive care -Orthopedics will continue to follow. Please call with questions or concerns. Chief Complaint/Reason for Visit: Cellulitis, b/l lower extremity History of Present Illness: Jeremy Rosas is a 49 y.o. male with PMH of HTN, HLD, PVD and GERD who presents to [facility] ED as a transfer from [facility] with bilateral LE cellulits, r/o necrotizing infection and reported advancement of erythema up to his groin. Mr. Rosas states that he wore work boots on early last week that rubbed sores on the back of his legs. On Wednesday, he began to develop increased redness. He went to [facility] on Wednesday. He was reportedly febrile. He has been treated inpatient with IV Clindamycin and Zosyn, but states that symptoms have failed to improve. He states that he has had chronic venous stasis for several years and has had similar episodes of cellulitis in the past. He has minimal pain at rest; it does worsen with attempted ambulation. The left side is worse in his opinion. He had an MRI of the left lower extremity without concern for fluid consolidation or osteomyelitis. He is not a diabetic and denies peripheral neuropathy. History: Past Medical History: Diagnosis Date GERD (gastroesophageal reflux disease) Glaucoma Hyperlipidemia Hypertension Peripheral vascular disease (HCC) Past Surgical History: Procedure Laterality Date HERNIA REPAIR umbilical Family History Problem Relation Age of Onset Hypertension Father Diabetes Father Other (stents) Father Social History Socioeconomic History Marital status: Single Spouse name: Not on file Number of children: Not on file Years of education: Not on file Highest education level: Not on file Occupational History Not on file Social Needs Financial resource strain: Not on file Food insecurity Worry: Not on file Inability: Not on file Transportation needs Medical: Not on file Non-medical: Not on file Tobacco Use Smoking status: Never Smoker Smokeless tobacco: Never Used Substance and Sexual Activity Alcohol use: Never Frequency: Never Drug use: Never Sexual activity: Not on file Lifestyle Physical activity Days per week: Not on file Minutes per session: Not on file Stress: Not on file Relationships Social connections Talks on phone: Not on file Gets together: Not on file Attends buddhist service: Not on file Active member of club or organization: Not on file Attends meetings of clubs or organizations: Not on file Relationship status: Not on file Other Topics Concern Not on file Social History Narrative Not on file Allergy Information: I have reviewed the patient's allergies. Patient has no known allergies. Home Medications: Outpatient Medications as of 11/04/2019 Medication Sig furosemide (LASIX) 40 MG tablet Take 40 mg by mouth 2 (two) times a day . lansoprazole (PREVACID) 30 MG capsule Take 30 mg by mouth every night at bedtime . losartan (COZAAR) 100 MG tablet Take 100 mg by mouth daily . omega 9-vzm-hsd-fish oil (Fish Oil) 300-1,000 mg cap Take 1 capsule by mouth daily . pravastatin (PRAVACHOL) 10 MG tablet Take 10 mg by mouth every night at bedtime . Review of Systems: The following system(s) were reviewed and pertinent findings noted: Constitutional Neuro Skin Musc Physical Examination: Vital Signs: BP (!) 123/46 (BP Location: Right arm, Patient Position: Sitting) Pulse 80 Temp 98 F (36.7 C) (Oral) Resp 16 Ht 5' 9 Wt (!) 176.9 kg (390 lb) SpO2 98% BMI 57.59 kg/m General: Alert, cooperative, no distress, appears stated age Lungs: Respirations unlabored, normal respiratory effort Cardiovascular: Regular rate. Bilateral LE: DP pulse 2+. Cap refill < 2 seconds. Skin: Bilateral LE: Skin tears on the posterior aspect of bilateral legs. Chronic skin darkening on bilateral lower legs, almost to the level of the knee. There is some faint erythema extending beyond the chronic skin changes into the thigh, specifically medially. L>R Musculoskeletal: Bilateral LE: No obvious fluctuance or consolidation appreciated. Pt tolerates palpation of the legs with minimal discomfort. He is able to flex and extend the knees and ankles with minimal discomfort. All compartments are soft. Neurologic: Bilateral LE: SILT in SP/DP/S/S/T nerve distributions. EHL/FHL, PF/DF are motor intact. Psych: Mood and affect appropriate Laboratory and Additional Data Reviewed: Laboratory 11/04/19 3:11 PM Radiology 11/04/19 3:11 PM Associated attestation - Arjun Alcantar MD - 11/05/2019 11:32 AM EST Discussed with MLP yesterday by phone, agree with above plan. Will follow.documented in this encounter Nahomy Naylor RN - 11/04/2019 2:40 PM Nahomy Aldana RN - 11/04/2019 2:40 PM Nahomy Aldana RN - 11/04/2019 2:18 PM Nahomy Esquivel RN - 11/04/2019 1:46 PM EST ED Notes (unrecognized secti on and content) Ed Physician authorized ok to draw blood from PICC line-- Cxray completed at bedside Blood work drawn from the Picc Line0-flushed w/ 20 ml -wasted 5 ml--blood drawn and sent. Flushed w/ 20 ml 0.9 nacl -denzel well ED PROVIDER NOTE [facility] SUR[facility] ORTHOPEDICS NAME: Jeremy Rosas AGE: 49 y.o. : 1970 VISIT DATE: 11/04/2019 CSN: [id number] PCP: Physician No Chief Complaint Patient presents with Cellulitis BLE --started 3 days ago --went in Wednesday ro [facility] -has been on antibiotic -has genoveva picc line #18 the was inserted yesterdy at [facility] Patient is a 49-year-old male who presents to [place] emergency department for evaluation of bilateral lower extremity cellulitis. Patient is a transfer from [facility] He has been admitted to the hospital for the past 3 days and has been receiving clindamycin and Zosyn via PICC line. The cellulitis has been worsening and spreading up into his groin so he was transferred to [place]. He was initially going to be direct admitted but admitting doctor wanted patient to first be evaluated in the emergency department and for orthopedics to see the patient. Patient says that he has had cellulitis in the past. Patient does endorse having some pain associated with his lower extremities. Pain is constant burning pain. Radiates throughout his lower legs. No numbness or tingling. Patient says he has increased pain when he is walking. He does endorse having intermittent chills. Patient denies fevers, shortness of breath, chest pain, nausea, vomiting. Past Medical History: Diagnosis Date GERD (gastroesophageal reflux disease) Glaucoma Hyperlipidemia Hypertension Peripheral vascular disease (HCC) Past Surgical History: Procedure Laterality Date HERNIA REPAIR umbilical Family History Problem Relation Age of Onset Hypertension Father Diabetes Father Other (stents) Father Social History Socioeconomic History Marital status: Single Spouse name: Not on file Number of children: Not on file Years of education: Not on file Highest education level: Not on file Occupational History Not on file Social Needs Financial resource strain: Not on file Food insecurity Worry: Not on file Inability: Not on file Transportation needs Medical: Not on file Non-medical: Not on file Tobacco Use Smoking status: Never Smoker Smokeless tobacco: Never Used Substance and Sexual Activity Alcohol use: Never Frequency: Never Drug use: Never Sexual activity: Not on file Lifestyle Physical activity Days per week: Not on file Minutes per session: Not on file Stress: Not on file Relationships Social connections Talks on phone: Not on file Gets together: Not on file Attends buddhist service: Not on file Active member of club or organization: Not on file Attends meetings of clubs or organizations: Not on file Relationship status: Not on file Other Topics Concern Not on file Social History Narrative Not on file Previous Medications Medication Sig FLAXSEED ORAL Take 1 capsule by mouth daily . furosemide (LASIX) 40 MG tablet Take 40 mg by mouth 2 (two) times a day . lansoprazole (PREVACID) 30 MG capsule Take 30 mg by mouth every night at bedtime . losartan (COZAAR) 100 MG tablet Take 100 mg by mouth daily . omega 2-isc-uiw-fish oil (Fish Oil) 300-1,000 mg cap Take 1 capsule by mouth daily . pravastatin (PRAVACHOL) 10 MG tablet Take 10 mg by mouth every night at bedtime . No Known Allergies Review of Systems Constitutional: Positive for chills. Negative for fever. HENT: Negative for congestion. Eyes: Negative for visual disturbance. Respiratory: Negative for shortness of breath. Cardiovascular: Negative for chest pain. Gastrointestinal: Negative for abdominal pain. Genitourinary: Negative for dysuria. Musculoskeletal: Positive for myalgias. Skin: Positive for wound. Neurological: Negative for light-headedness. Psychiatric/Behavioral: The patient is not nervous/anxious. Patient Vitals for the past 24 hrs: BP Temp Temp src Pulse Resp SpO2 Height Weight 11/04/19 1433 (!) 123/46 98 F (36.7 C) Oral 80 16 98 % 11/04/19 1348 (!) 136/56 97.9 F (36.6 C) Oral 73 (!) 19 97 % 5' 9 (!) 176.9 kg (390 lb) Physical Exam Constitutional: Appearance: Normal appearance. He is obese. HENT: Head: Normocephalic and atraumatic. Right Ear: External ear normal. Left Ear: External ear normal. Nose: Nose normal. Mouth/Throat: Pharynx: Oropharynx is clear. Eyes: Extraocular Movements: Extraocular movements intact. Conjunctiva/sclera: Conjunctivae normal. Pupils: Pupils are equal, round, and reactive to light. Neck: Musculoskeletal: Neck supple. Cardiovascular: Rate and Rhythm: Normal rate and regular rhythm. Pulmonary: Effort: Pulmonary effort is normal. Breath sounds: Normal breath sounds. Abdominal: Palpations: Abdomen is soft. Tenderness: There is no abdominal tenderness. Musculoskeletal: General: Tenderness present. Right lower leg: Edema present. Left lower leg: Edema present. Comments: Bilateral lower extremity edema and cellulitis. Slight TTP. There is a blister dorsal aspect of left foot. Abrasion plantar aspect left foot. Distal pulses palpable. Sensation intact. Skin: General: Skin is warm. Capillary Refill: Capillary refill takes less than 2 seconds. Neurological: General: No focal deficit present. Mental Status: He is alert and oriented to person, place, and time. Psychiatric: Mood and Affect: Mood normal. Behavior: Behavior normal. Laboratory & Radiographic Imaging (if done): Results for orders placed or performed during the hospital encounter of 11/04/19 BMP Result Value Ref Range Sodium 134 (L) 135 - 145 mmol/L Potassium 4.1 3.5 - 5.1 mmol/L Chloride 96 (L) 98 - 108 mmol/L Bicarbonate 24 21 - 32 mmol/L Anion Gap 18 10 - 20 mmol/L Glucose 114 (H) 65 - 99 mg/dL BUN 52 (H) 8 - 25 mg/dL Creatinine 3.42 (H) 0.50 - 1.30 mg/dL eGFR 20 (L) >=60 mL/min/1.73 m2 BUN/Creatinine Ratio 15.2 10.0 - 20.0 Calcium 8.8 8.4 - 10.2 mg/dL Sedimentation Rate Result Value Ref Range Sed Rate 52 (H) 0 - 15 mm/hr CRP, Inflammation Result Value Ref Range CRP(Inflammation) 144.2 (H) 0.0 - 10.0 mg/L CBC Auto Differential Result Value Ref Range WBC 9.61 4.50 - 11.00 K/mcL RBC 4.46 (L) 4.50 - 5.90 M/mcL Hemoglobin 12.5 (L) 13.5 - 17.5 g/dL Hematocrit 38.0 (L) 41.0 - 53.0 % MCV 85.2 80.0 - 100.0 fL MCH 28.0 26.0 - 34.0 pg MCHC 32.9 31.0 - 37.0 g/dL Platelets 228 150 - 400 K/mcL RDW - CV 14.3 11.6 - 14.8 % MPV 9.8 9.0 - 15.5 fL Neutrophils 78.2 % Lymphocytes 7.6 % Monocytes 8.3 % Eosinophils 5.4 % Basophils 0.1 % IG Percent 0.40 % Neutrophils Abs 7.51 (H) 1.70 - 7.00 K/mcL Lymphocytes Abs 0.73 (L) 0.90 - 4.00 K/mcL Monocytes Abs 0.80 0.30 - 0.90 K/mcL Eosinophils Abs 0.52 (H) 0.00 - 0.50 K/mcL Basophils Abs 0.01 0.00 - 0.30 K/mcL IG Absolute 0.04 0.00 - 0.30 K/mcL Nucleated RBC 0.0 % Nucleated RBC Abs 0.00 0.00 - 0.00 K/mcL MR Comparison Import Final Result XR Comparison Import Final Result XR Chest 1 View (Results Pending) Procedures MDM Number of Diagnoses or Management Options Cellulitis of lower extremity, unspecified laterality: Diagnosis management comments: Patient is a 49-year-old male who presented to [facility] as a transfer from [facility] for evaluation of bilateral lower extremity cellulitis. Patient was transferred for ID and orthopedic evaluation and to be admitted to the hospital. He has been receiving Zosyn and clindamycin. Symptoms have been worsening so he was sent to [facility]. On exam patient has bilateral lower extremity cellulitis. Slight TTP to lower extremities. Distal pulses palpable. Sensation intact. Heart RRR. Lungs are to auscultation bilaterally. Patient had creatinine 3.42, GFR 20. CRP 144.2 sed rate 52. No leukocytosis. Orthopedics was consulted. MRI of outlying hospital reviewed. Patient will be hospitalized for further evaluation and management of patient's bilateral lower extremity cellulitis. . Clinical Impression: 1. Cellulitis of lower extremity, unspecified laterality ED Disposition ED Disposition Condition Comment Hospitalize Phone call required?: No Follow-up Information Follow-up information has not been specified. Contact information for after-discharge care Follow-up information has not been specified. New Prescriptions This print group is not available in inpatient encounters. Please contact a terminal system operator. Joe Pineda PA-C 11/04/19 1505 [facility] 3 w/49 yr old male from [facility] with cellulitis of Bilateral lower legs -spreading to the groin -started 3 days ago Bed: 74 Expected date: Expected time: Means of arrival: Comments: procare / cellulitis / franasiak documented in this encounter Quick Note - Cecy Mccoy RN - 11/09/2019 7:44 PM ESTQuick Note - Jenifer Palacios RN - 11/09/2019 6:17 PM ESTSign Off Note - Ronaldo Nieves DO - 11/08/2019 3:38 PM EST Miscellaneous Notes (unrecog nized section and content) Nurse called report to [facility]. Patient to be transported at 9:30 p.m. via [facility]. ADDENDUM 18:42- Transfer center called w/ [facility], [address] [place] [address], [id number]. Will notify social work in attempts to set up transport. 18:15- Just spoke w/ [facility] transfer center. They stated the Pt will more then likely not receive a bed tonight. There has been little movement and states that their ED might be going on diversion soon. They will call with updates. Renal Sign-Off 49 year old male who developed either ATN from hemodynamic changes or AIN from multiple antibiotics at the transferring facility (did have peripheral eosinophilia as well as rash). Renal function has improved but unfortunately his rash (originally believed to be AGEP) has progressively worsened and he will be transferred to [facility] for a dermatologic evaluation as we do not have these services available at [facility]. Medications: Hold home diuretics and SANDY inhibitor until PORTIA resolves further. Labs: N/A Fax Labs To: N/A Renal Follow-up Appointment: Pending renal recovery. Additional Information: N/A Ronaldo Nieves D.O. Internal Medicine PGY3 Pager: [phone] General Surgery Sign-Off Discharge Medications: N/A Wound Care & Drain Instructions/Orders: keep biopsy site clean and dry, hold pressure if bleeding Diet: As tolerated Activity: As tolerated Follow-up Imaging, Testing: N/A Follow-up Appointment(s): As needed.. Infectious Disease Sign-Off Indication: skin rash Antibiotic: N/A Labs: N/A Imaging: N/A ID Follow-up: N/A Pt seen in follow-up earlier today. More pustules visible on torso and some on medial knee. Afebrile. Renal function slowly improving. HIV negative, hep B sAb positive. MEAGHAN, ANCA negative. With increasing pustules, AGEP seems to be more probable, or at least a dermatosis related to medications. I would continue to monitor off abx at this time. I discussed with pt that no dermatology available here, he did not seem interested in transfer to [facility]. If he does not see derm as inpatient, then consider skin biopsy and very close follow-up with outpatient dermatology. Continue skin care for legs. Zosyn seems like more likely cause, but may need formal allergy testing as outpatient to determine. Consider placing on allergy list for now until can be fully assessed. D/w [facility] and nephrology. ID service will sign off at this time. Please call with any questions or concerns, or if patient needs to be reassessed. Mikaela Galeas MD [facility] - Infectious Diseases Pager [phone] Office/answering service [phone] 11/07/2019 3:29 PM Pt was seen and examined independently by me. I reviewed all pertinent documentation and imaging. I agree with Merari Luo's note. In short this is a 49 year old male who presents to [facility] as a transfer for concern for necrotizing fascitis. Pt reports he has had painful redness and swelling his bilateral legs for 4-5 days. States this all started after he was wearing high work boots that irritated his legs. He has had cellulitis on his legs like this before. He also has chronic venous stasis changes to BLE. He does not feel that the pain or redness is getting better or worse. LRINEC is 1. Minimally painful with palpation. No fluctuance. MRI of the L foot was reviewed and shows superficial soft tissue swelling without drainable fluid collection. No concern for necrotizing fascitis at this time. Recommend ID consult for Abx recommendations. No further orthopedic intervention needed. Associated Problem(s): Cellulitis 49 y/o male with chronic venous stasis who has bilateral LE cellulitis -No indication for surgical intervention at this time -Low concern for necrotizing infection. Symptoms have been present for 4 days. LRINEC score = 1. Patient is very minimally painful. -Will consult ID for IV antibiotic recommendations -No obvious fluctuance or consolidated area for drainage. MRI of LLE at [facility] with nonspecific swelling, but no organized fluid collection. -Orthopedics will continue to follow. Please call with questions or concerns. ED Attestation I personally interviewed the patient. I personally examined the patient. I discussed the patient with SPECIAL DELIVERY WORKER/PA. I agree with the SPECIAL DELIVERY WORKER/PA treatment plan. I agree with the SPECIAL DELIVERY WORKER/PA plan of care. I agree with the SPECIAL DELIVERY WORKER/PA dispo as documented. Patient is a middle-age overweight male with PMHx of HTN, HLD, GERD, and venous insufficiency who is presenting with bilateral leg swelling and redness. Patient states he had this once before a few years ago when he was placed on antibiotics in the hospital and got better. Symptoms currently been going on for 2 weeks. Patient admitted to [facility] since Wednesday (x3 days ago) and reportedly developed some blistering overlying both lower extremities worse on the left. Reported fever at outside hospital but I cannot find documentation and paperwork sent. WBCs remain normal. There was a concern for necrotizing fasciitis given the blistering and overlying redness so patient was started on broad-spectrum antibiotics including linezolid, Zosyn, and clindamycin. MRI of the left lower extremity yesterday was performed and I reviewed the results of the paperwork sent which shows no evidence of osteomyelitis or subcutaneous emphysema and nonspecific swelling over that extremity which could be related to cellulitis. Patient transferred here for evaluation by orthopedics and admitted to the hospital. Upon arrival here patient was evaluated bedside by myself. Here patient is normotensive, afebrile, and not tachycardic. EKG here interpreted by myself as sinus rhythm with heart rate of 69 and normal axis without evidence of obvious ST elevation/depression or abnormal T wave inversions. OK interval normal 170. QRS normal 84. QTc normal 402. Patient very well-appearing on exam. Blistering to posterior left leg at resembles a pressure ulcer. Orthopedics made aware of patient's arrival in the emergency department and performed a bedside evaluation and will continue with recommendations. Based off patient's well appearance, lack of fever, normal WBCs, and lack of sudden worsening of his symptoms without any evidence of crepitus on exam and a normal MRI yesterday - I have a very low suspicion for necrotizing fasciitis at this time. Patient admitted to medicine. Patient Vitals for the past 24 hrs: BP Temp Temp src Pulse Resp SpO2 Height Weight 11/04/19 1348 (!) 136/56 97.9 F (36.6 C) Oral 73 (!) 19 97 % 5' 9 (!) 176.9 kg (390 lb) Medications Administered (if any) Medications - No data to display Laboratory Results Labs Reviewed BASIC METABOLIC PANEL CBC AND DIFFERENTIAL Narrative: The following orders were created for panel order CBC w/ Diff. Procedure Abnormality Status --------- ------ CBC Auto Differential[[id number]] Please view results for these tests on the individual orders. SEDIMENTATION RATE CRP, INFLAMMATION CBC WITH AUTO DIFFERENTIAL Imaging Results MR Comparison Import Final Result XR Comparison Import Final Result XR Chest 1 View (Results Pending) Procedures documented in this encounter Care Team (unrecognized sect ion and content) Care Team Related Persons Name: MAGALY ROSAS Name: KALI ROSAS Source Comments (unrecognize d section and content) In the event this informatio n is protected by the Federal Confidentiality of Alcohol and Drug Abuse Patient Records regulations: The Federal rules restrict any use of the information to criminally investigate or prosecute any alcohol or drug abuse patient.[facility] Care Teams (unrecognized sec tion and content) FOR RECORDS PERTAINING TO PATIENTS WHO ARE OR HAVE BEEN ENROLLED IN A CHEMICAL DEPENDENCY/SUBSTANCEABUSE PROGRAM, SOME INFORMATION MAY BE OMITTED. This clinical summary was aggregated from multiple sources. Caution should be exercised in using it in the provision of clinical care. This summary normalizes information from multiple sources, and as a consequence, information in this document may materially change the coding, format and clinical context of patient data. In addition, data may be omitted in some cases. CLINICAL DECISIONS SHOULD BE BASED ON THE PRIMARY CLINICAL RECORDS. [facility] [employer] [facility]. provides no warranty or guarantee of the accuracy or completeness of information in this document.
[2023-12-20 13:23] LABS: Cholesterol 123 mg/dL (200); High Density Lipoprotein 37 mg/dL; PSA,Total - Annual Screen 0.23 ng/mL (0.00-4.00); Triglycerides 84 mg/dL; Very Low Density Lipoprotein 17 mg/dL (5-40)
== END | disposition home or self-care (01) ==
LOC: BIMLAB 08:39
PROVIDERS: PCP Internal Medicine; Referring Provider Internal Medicine; Visit Provider Internal Medicine
DX: E78.2 Mixed hyperlipidemia (principal); Z80.42 Family history of malignant neoplasm of prostate
CPT/HCPCS: 36415; 80061; 84153; G0103

== ENCOUNTER 2023-12-21 08:00 | Outpatient (RCR) | payer BC, SELFPAY ==
[2023-11-29 00:16] VITALS: BP 130/71; PULSE 67; RESP 18; TEMP 36.2; BMI 51.7
[2023-11-30 08:11] VITALS: BP 171/78; PULSE 78; RESP 16; TEMP 36.4; BMI 51.7
--- NOTE | 2023-11-30 08:57 | PCM.WC.HP ---
History of Present Illness Date of Service: 11/30/23 Chief Complaint: Venous stasis dermatitis with swelling and edema bilaterally; venous stasis ulcerations of the lower extremities; bilateral lower extremity lymphedema History of Wound: This is a 53-year-old male with a longstanding history of chronic venous disease. He has previously been treated at this facility for venous stasis ulcerations of both lower extremities. He was most recently treated only several months prior to his current presentation. He presented at this time with bilateral lower extremity swelling, edema, and lymphedema, with venous ulcerations in the lower extremities. Upon his prior discharge, the patient had been instructed in the use of his Velcro compression garments. He had been advised to elevate his lower extremities as much as possible, to heart level, or higher. Efforts had been made to obtain pneumatic mechanical compression pumps, but the patient's insurance did not allow for this benefit. The patient has had chronic venous stasis dermatitis in his lower extremities for several years. 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 His profession requires him to sit for prolonged periods. The patient is morbidly obese. He denies a history of deep vein thrombosis in the past. He claims to sleep on a flat mattress at night. [facility] Medical History Chronic venous hypertension w/ulcer and inflammation involv left side Chronic venous hypertension w/ulcer and inflammation involv right side Chronic venous hypertension with inflammation involving left side Chronic venous insufficiency CPAP (continuous positive airway pressure) dependence GERD (gastroesophageal reflux disease) Hyperlipidemia Hyperpigmentation Hypertension Leg pain Leg swelling Lipodermatosclerosis Lymphedema due to venous disease Morbid obesity Non-smoker Sleep apnea Venous hypertension, chronic, with inflammation Venous hypertension, chronic, with ulcer and inflammation Venous stasis dermatitis of left lower extremity Venous stasis ulcer Venous ulcer of left leg Venous ulcer of right leg Home Medications furosemide 40 mg tablet 40 mg PO BID 06/24/21 [History Last Taken 09/20/23] lansoprazole 30 mg capsule,delayed release 30 mg PO DAILY 06/24/21 [History Last Taken 09/20/23] losartan 100 mg tablet 100 mg PO DAILY 06/24/21 [History Last Taken 09/20/23] pravastatin 10 mg tablet 10 mg PO DAILY 06/24/21 [History Last Taken 09/20/23] amoxicillin 875 mg-potassium clavulanate 125 mg tablet 1 tab PO BID #8 tabs 09/25/23 [Rx Last Taken Unknown] levofloxacin 750 mg tablet 750 mg PO DAILY #4 tabs 09/25/23 [Rx Last Taken Unknown] Allergy/AdvReac Type Severity Reaction Status Date / Time No Known Allergies Allergy Verified 09/21/23 09:25 Surgical History H/O umbilical hernia repair Social History 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 General Appearance: cooperative, comfortable, well kempt and well developed Orientation / Consciousness: awake, oriented to person, oriented to place and oriented to time HEENT normocephalic, head/scalp atraumatic and hearing grossly normal bilaterally Head and Scalp: normal to inspection, normocephalic and atraumatic Face and Sinus: normal facial exam External Ear: external ears normal Eyes PERRL and EOMs intact bilaterally General Eye: normal appearance of both eyes Resp normal respiratory effort, normal air movement, no retractions and no use of accessory muscles Effort and Inspection: able to speak in complete sentences and symmetric chest movement Extremity no calf tenderness General Extremity: Negative for clubbing or cyanosis Skin Wound Narrative: The swelling and edema in the patient's lower extremities is much improved, and remains at a minimum. Significant healing has occurred at the site of the large right calf ulceration. There has been significant epithelialization. Now, only 1 ulceration remains, which is generally pink and healthy in appearance. It is clustered, and located on the right colleen-lateral surface. Dimensions are documented elsewhere. There is no sign of infection or cellulitis. There is a small amount of bioburden. There has been significant improvement in the exfoliative dermatitis in the right lower extremity. The skin is largely soft and supple, markedly improved in recent weeks. The ulcerations in the patient's left lower extremity have healed and are completely epithelialized. Lipodermatosclerosis and hyperpigmentation are noted in the gaiter areas bilaterally. Neuro oriented x3, CN's II-XII intact bilaterally, moves all extremities and no focal motor deficits Sensorium / Orientation: awake, alert, oriented to person, oriented to place and oriented to time Psych Appearance: grossly normal and appropriate Attitude: calm Activity / Motor Behavior: appropriate eye contact Speech: normal speech Mood & Affect: euthymic mood Thought Process: normal thought process Thought Content: normal thought content Attention / Concentration: attention grossly intact Debridement Note Debridement Note Wound debrided: Right colleen-lateral calf Laterality: Right Type of Debridement: Excisional debridement Anesthesia Used: 5% Lidocaine Gel Depth: Down to and including healthy tissue and in the subcutaneous layer Percentage of wound debrided: 100 Instrument Used: 5mm curette Tissue Removed: Bioburden and nonviable tissue Severity: Fat Layer Exposed Amount of bleeding with debridement: Mild Bleeding Controlled with: Compression and gauze Patient tolerated procedure: Patient tolerated procedure well Post-Debridement Measurements and Additional Note: Post-Debridement Measurements/Treatment - Nurse 1 - General Ulcer Assessment Start: 11/30/23 08:11 Freq: Status: Active Protocol: .LOWEXT Activity Type Activity Date Activity User E-sign Co-sign Detail Recorded Client Recorded Date Recorded By Document 11/30/23 08:11 KW Desktop 11/30/23 08:17 KW 11/30/23 08:11 - Today's Visit Information Type of service Follow-up Visit (Physician/[employer]PERVISOR ) Arrival Mode Ambulatory Patient Identification Verified (Name & Yes ) Height and Weight Body Mass Index (BMI) 51.7 BMI Classification Obese Vital Signs Temperature (97.8 F-99.1 F) 97.5 F L Temperature Source Temporal Pulse Rate (60-100) 78 Pulse Location Monitor Respiratory Rate (12-18) 16 Respiratory rate source Observation Oxygen Delivery Method Room Air Blood Pressure (90/60-120/80) 171/78 H Blood Pressure Mean 109 Source Monitor Position Sitting Blood Pressure Location Right Forearm History Since Last Visit- (Skip if this is Patient's initial visit) Have you changed medications since your No last visit? Any new allergies or adverse reactions No Had a fall/change in ADL's that may No increase risk of falls Signs or symptoms of abuse and/or No neglect since last visit Have you been in the hospital since your No last visit? Has dressing in place as prescribed Yes Has compression in place as prescribed Yes Has offloadiing in place as prescribed N/A Experienced any changes in pain level or No management Left Footwear Regular Shoe Right Footwear Regular Shoe Pain Scale: 0-10 Numeric Is Patient Pain Free? Yes WC - Nurse 1 - General Ulcer Measurement Start: 11/30/23 08:11 Freq: Status: Active Protocol: Activity Type Activity Date Activity User E-sign Co-sign Detail Recorded Client Recorded Date Recorded By Document 11/30/23 08:11 KW Desktop 11/30/23 08:17 KW 11/30/23 08:11 Wound Center Nurse 1 #8 RLE POST CLUSTER -Combined with other wound No -Current Size (cm) - Length 1.5 -Current Size (cm) - Width 1.7 -Current Size (cm) - Depth 0.1 -Total Square Cm 2.55 -Date of Last Picture (Recall this 11/30/23 field) -Photo Taken Yes -Epithelialization Small 1-33% -Tunneling No -Undermining/Tunneling No -Circular Undermining No -Exudate Amt Medium -Exudate Type Serosanguineous -Wound Margin Distinct, Outline Attached -Granulation Amt Large (67-100%) -Granulation Quality Red -Slough/Fibrin Yes -Necrosis Amt Small (1-33%) -Necrotic Tissue Type Adherent Slough -Texture (Earlene-wound Skin Appearance) Scarring -Moisture (Earlene-wound Skin Appearance) Assessed,Dry/ Scaly -Color (Earlene-wound Skin Appearance) Assessed -Temperature (Earlene-wound Skin No Abnormality Appearance) (Pt Warm) -Tenderness on Palpation (Earlene-wound No Skin Appearance) -Ulcer Cleansing Soap and Water -Foul Odor after Cleansing No -Anesthetic Used 5% Lidocaine Gel Lower Limb Edema Present Yes Right Calf (cm) 48 Right Ankle (cm) 28 WC - Nurse 3 - General Ulcer D/C NN Start: 11/30/23 08:11 Freq: Status: Active Protocol: Activity Type Activity Date Activity User E-sign Co-sign Detail Recorded Client Recorded Date Recorded By Document 11/30/23 08:41 RB Desktop 11/30/23 08:43 RB 11/30/23 08:41 Wound Care Center Nurse 3 #8 RLE POST CLUSTER -Ulcer Cleansing Rinsed/ Irrigated with Saline -Other Dressing aquacel AG -Primary Dressing Covered/Secured with Dry Gauze,Dry Gauze & Roll Gauze,Secured with Tape -Other Covering abd Right -Tubular Bandage Single Layer -Size of Tubigrip Used Size E -Size E ($) 1 -Other circaid Left -Other circaid Treatment Response Procedure Tolerated Well Pain Scale: 0-10 Numeric Is Patient Pain Free? Yes Teaching: Wound Center Dressing Your Wound -Person Taught Patient -Teaching Method Discussion, Demonstration -Response to teaching Verbalize understanding WC - Visit Discharge Discharge Condition Stable Ambulatory Status Ambulatory Transportation Private Auto Medication Reconcilliation completed & No provided to patient/care provider Clinical Summary of Care Provided Yes Assessment/Plan Assessment/Plan (1) Lymphedema due to venous disease: CODE(S): I89.0 - Lymphedema, not elsewhere classified; I99.9 - Unspecified disorder of circulatory system (2) Venous ulcer of right leg: CODE(S): I83.019 - Varicose veins of right lower extremity with ulcer of unspecified site; L97.919 - Non-pressure chronic ulcer of unspecified part of right lower leg with unspecified severity (3) Chronic venous hypertension w/ulcer and inflammation involv right side: CODE(S): I87.331 - Chronic venous hypertension (idiopathic) with ulcer and inflammation of right lower extremity (4) Venous ulcer of left leg: CODE(S): I83.029 - Varicose veins of left lower extremity with ulcer of unspecified site; L97.929 - Non-pressure chronic ulcer of unspecified part of left lower leg with unspecified severity (5) Chronic venous hypertension w/ulcer and inflammation involv left side: CODE(S): I87.332 - Chronic venous hypertension (idiopathic) with ulcer and inflammation of left lower extremity (6) Chronic venous hypertension with inflammation involving left side: CODE(S): I87.322 - Chronic venous hypertension (idiopathic) with inflammation of left lower extremity (7) Venous stasis dermatitis of left lower extremity: CODE(S): I87.2 - Venous insufficiency (chronic) (peripheral) (8) Venous hypertension, chronic, with ulcer and inflammation: CODE(S): I87.339 - Chronic venous hypertension (idiopathic) with ulcer and inflammation of unspecified lower extremity; L97.909 - Non-pressure chronic ulcer of unspecified part of unspecified lower leg with unspecified severity QUALIFIERS: Laterality: right Qualified Code(s): I87.331 - Chronic venous hypertension (idiopathic) with ulcer and inflammation of right lower extremity; L97.919 - Non-pressure chronic ulcer of unspecified part of right lower leg with unspecified severity (9) Leg swelling: CODE(S): M79.89 - Other specified soft tissue disorders (10) Leg pain: CODE(S): M79.606 - Pain in leg, unspecified QUALIFIERS: Laterality: bilateral Qualified Code(s): M79.604 - Pain in right leg; M79.605 - Pain in left leg (11) Hyperlipidemia: CODE(S): E78.5 - Hyperlipidemia, unspecified (12) Hypertension: CODE(S): I10 - Essential (primary) hypertension (13) Lipodermatosclerosis: CODE(S): I83.10 - Varicose veins of unspecified lower extremity with inflammation (14) Hyperpigmentation: CODE(S): L81.9 - Disorder of pigmentation, unspecified (15) Morbid obesity: CODE(S): E66.01 - Morbid (severe) obesity due to excess calories (16) H/O umbilical hernia repair: CODE(S): Z98.890 - Other specified postprocedural states; Z87.19 - Personal history of other diseases of the digestive system (17) Chronic venous insufficiency: CODE(S): I87.2 - Venous insufficiency (chronic) (peripheral) PLAN: Plan This is a 53-year-old male with a longstanding history of chronic venous insufficiency, venous hypertension with inflammation and ulceration, and prior episodes of venous stasis ulcerations. He also experiences chronic swelling, edema, and lymphedema in his lower extremities. 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 The patient's occupation prevents him from elevating his lower extremities as recommended. The nature of his occupation requires long periods of idle sitting. A lengthy discussion has been undertaken as to the appropriate conservative treatment measures relative to the patient's presenting symptoms and manifestations. The patient has been treated for numerous weeks relative to the swelling, edema, and ulcerations in his lower extremities. However, the degree of swelling and edema, and the expanding ulcerations in the patient's lower extremities, associated with the development of cellulitis, prompted the patient to be referred to the emergency department for inpatient admission. The patient was admitted to [facility] on September 21, where an inpatient stay transpired for 4 days. During that period of time, the patient was treated with intravenous antibiotics which included Augmentin and Levaquin. The patient was subsequently discharged on oral Augmentin and Cipro, the course of which has now been completed. There continues to be significant improvement in the status of the patient's lower swelling, edema, and ulcerations. The swelling and edema in the lower extremities is minimized, and healing of the patient's ulcerations has been progressive in recent weeks. 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 This will enable him to continue with concerted efforts at leg elevation. 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 We are to continue with conservative treatment measures which include leg elevation, avoidance of idle sitting, activity as tolerated, and compression to the patient's lower extremities by means of CircAid's. The patient has received new CircAid garments, and is to continue wearing on a daily basis. Weight loss has also been recommended. We are to continue with the use of Aquacel Ag topically to the ulceration on the right lateral calf. Aquacel Ag is to be applied on a daily basis. The patient has been instructed in the appropriate means of application. Moisturizing skin lotion is to be applied topically to the intact skin in the gaiter areas bilaterally. We are in the process of attempting to procure pneumatic mechanical compression pumps for the patient's use. We are to seek preauthorization for the use of an EpiFix allograft on the remaining portions of the patient's right calf ulceration. The patient is to return in 1 week for reevaluation. Total time: 24 minutes
[2023-12-07 08:13] VITALS: BP 154/60; PULSE 55; RESP 18; TEMP 35.9; BMI 51.7
--- NOTE | 2023-12-07 08:43 | PCM.WC.HP ---
History of Present Illness Date of Service: 12/07/23 Chief Complaint: Venous stasis dermatitis with swelling and edema bilaterally; venous stasis ulcerations of the lower extremities; bilateral lower extremity lymphedema History of Wound: This is a 53-year-old male with a longstanding history of chronic venous disease. He has previously been treated at this facility for venous stasis ulcerations of both lower extremities. He was most recently treated only several months prior to his current presentation. He presented at this time with bilateral lower extremity swelling, edema, and lymphedema, with venous ulcerations in the lower extremities. Upon his prior discharge, the patient had been instructed in the use of his Velcro compression garments. He had been advised to elevate his lower extremities as much as possible, to heart level, or higher. Efforts had been made to obtain pneumatic mechanical compression pumps, but the patient's insurance did not allow for this benefit. The patient has had chronic venous stasis dermatitis in his lower extremities for several years. 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 His profession requires him to sit for prolonged periods. The patient is morbidly obese. He denies a history of deep vein thrombosis in the past. He claims to sleep on a flat mattress at night. [facility] Medical History Chronic venous hypertension w/ulcer and inflammation involv left side Chronic venous hypertension w/ulcer and inflammation involv right side Chronic venous hypertension with inflammation involving left side Chronic venous insufficiency CPAP (continuous positive airway pressure) dependence GERD (gastroesophageal reflux disease) Hyperlipidemia Hyperpigmentation Hypertension Leg pain Leg swelling Lipodermatosclerosis Lymphedema due to venous disease Morbid obesity Non-smoker Sleep apnea Venous hypertension, chronic, with inflammation Venous hypertension, chronic, with ulcer and inflammation Venous stasis dermatitis of left lower extremity Venous stasis ulcer Venous ulcer of left leg Venous ulcer of right leg Home Medications furosemide 40 mg tablet 40 mg PO BID 06/24/21 [History Last Taken 09/20/23] lansoprazole 30 mg capsule,delayed release 30 mg PO DAILY 06/24/21 [History Last Taken 09/20/23] losartan 100 mg tablet 100 mg PO DAILY 06/24/21 [History Last Taken 09/20/23] pravastatin 10 mg tablet 10 mg PO DAILY 06/24/21 [History Last Taken 09/20/23] amoxicillin 875 mg-potassium clavulanate 125 mg tablet 1 tab PO BID #8 tabs 09/25/23 [Rx Last Taken Unknown] levofloxacin 750 mg tablet 750 mg PO DAILY #4 tabs 09/25/23 [Rx Last Taken Unknown] Allergy/AdvReac Type Severity Reaction Status Date / Time No Known Allergies Allergy Verified 09/21/23 09:25 Surgical History H/O umbilical hernia repair Social History 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 General Appearance: cooperative, comfortable, well kempt and well developed Orientation / Consciousness: awake, oriented to person, oriented to place and oriented to time HEENT normocephalic, head/scalp atraumatic and hearing grossly normal bilaterally Head and Scalp: normal to inspection, normocephalic and atraumatic Face and Sinus: normal facial exam External Ear: external ears normal Eyes PERRL and EOMs intact bilaterally General Eye: normal appearance of both eyes Resp normal respiratory effort, normal air movement, no retractions and no use of accessory muscles Effort and Inspection: able to speak in complete sentences and symmetric chest movement Extremity no calf tenderness General Extremity: Negative for clubbing or cyanosis Skin Wound Narrative: The swelling and edema in the patient's lower extremities is much improved, and remains at a minimum. Significant healing has occurred at the site of the large right lateral calf ulceration. There has been significant epithelialization. Only 1 ulceration remains, which is generally pink and healthy in appearance. Dimensions are documented elsewhere. There is no sign of infection or cellulitis. There is a small amount of bioburden. There has been significant improvement in the exfoliative dermatitis in the right lower extremity. The skin is largely soft and supple, markedly improved in recent weeks. The ulcerations in the patient's left lower extremity have healed and are completely epithelialized. Lipodermatosclerosis and hyperpigmentation are noted in the gaiter areas bilaterally. Neuro oriented x3, CN's II-XII intact bilaterally, moves all extremities and no focal motor deficits Sensorium / Orientation: awake, alert, oriented to person, oriented to place and oriented to time Psych Appearance: grossly normal and appropriate Attitude: calm Activity / Motor Behavior: appropriate eye contact Speech: normal speech Mood & Affect: euthymic mood Thought Process: normal thought process Thought Content: normal thought content Attention / Concentration: attention grossly intact Debridement Note Debridement Note Wound debrided: Right lateral calf Laterality: Right Type of Debridement: Excisional debridement Anesthesia Used: 5% Lidocaine Gel Depth: Down to and including healthy tissue and in the subcutaneous layer Percentage of wound debrided: 100 Instrument Used: 5mm curette Tissue Removed: Bioburden and nonviable tissue Severity: Fat Layer Exposed Amount of bleeding with debridement: Mild Bleeding Controlled with: Compression and gauze Patient tolerated procedure: Patient tolerated procedure well Debridement Free Text: The excisional debridement was tolerated well. Following the excisional debridement, an 18 mm EpiFix allograft was applied. The 18 mm EpiFix allograft was removed from its sterile packaging. It was placed topically on the right lateral calf ulceration in the appropriate orientation. Adaptic Touch was then placed over the graft, and anchored in place using Steri-Strips. The entire site was then covered with a foam dressing. The patient tolerated the entire procedure well. This represents the first such application of an allograft. Post-Debridement Measurements and Additional Note: Post-Debridement Measurements/Treatment - Nurse 1 - General Ulcer Assessment Start: 11/30/23 08:11 Freq: Status: Active Protocol: JUSTINE Activity Type Activity Date Activity User E-sign Co-sign Detail Recorded Client Recorded Date Recorded By Document 11/30/23 08:11 KW Desktop 11/30/23 08:17 KW Document 12/07/23 08:13 RB Desktop 12/07/23 08:17 RB 11/30/23 12/07/23 08:11 08:13 - Today's Visit Information Type of service Follow-up Visit Follow-up Visit (Physician/ASSISTANT TRACK AND FIELD COACH (Physician/ASSISTANT TRACK AND FIELD COACH ) ) Arrival Mode Ambulatory Ambulatory Transfer Assistance None Patient Identification Verified (Name & Yes Yes ) Patient Requires Transmission-Based No Precautions Height and Weight Body Mass Index (BMI) 51.7 51.7 BMI Classification Obese Obese Vital Signs Temperature (97.8 F-99.1 F) 97.5 F L 96.7 F L Temperature Source Temporal Temporal Pulse Rate (60-100) 78 55 L Pulse Location Monitor Monitor Respiratory Rate (12-18) 16 18 Respiratory rate source Observation Observation Oxygen Delivery Method Room Air Blood Pressure (90/60-120/80) 171/78 H 154/60 H Blood Pressure Mean 109 91 Source Monitor Monitor Position Sitting Semi-Fowlers Blood Pressure Location Right Forearm Right Arm History Since Last Visit- (Skip if this is Patient's initial visit) Have you changed medications since your No No last visit? Any new allergies or adverse reactions No No Had a fall/change in ADL's that may No No increase risk of falls Signs or symptoms of abuse and/or No No neglect since last visit Have you been in the hospital since your No No last visit? Has dressing in place as prescribed Yes Yes Has compression in place as prescribed Yes Yes Has offloadiing in place as prescribed N/A No Experienced any changes in pain level or No No management Left Footwear Regular Shoe Right Footwear Regular Shoe Pain Scale: 0-10 Numeric Is Patient Pain Free? Yes Yes WC - Nurse 1 - General Ulcer Measurement Start: 11/30/23 08:11 Freq: Status: Active Protocol: Activity Type Activity Date Activity User E-sign Co-sign Detail Recorded Client Recorded Date Recorded By Document 11/30/23 08:11 KW Desktop 11/30/23 08:17 KW Document 12/07/23 08:13 RB Desktop 12/07/23 08:17 RB 11/30/23 12/07/23 08:11 08:13 Wound Center Nurse 1 #8 RLE POST CLUSTER -Combined with other wound No No -Current Size (cm) - Length 1.5 0.1 -Current Size (cm) - Width 1.7 0.1 -Current Size (cm) - Depth 0.1 0.1 -Total Square Cm 2.55 0.01 -Date of Last Picture (Recall this 11/30/23 field) -Photo Taken Yes Yes -Epithelialization Small 1-33% -Tunneling No No -Undermining/Tunneling No No -Circular Undermining No No -Exudate Amt Medium Medium -Exudate Type Serosanguineous Serosanguineous -Wound Margin Distinct, Distinct, Outline Outline Attached Attached -Granulation Amt Large (67-100%) Medium (34-66%) -Granulation Quality Red [place],Red -Slough/Fibrin Yes Yes -Necrosis Amt Small (1-33%) Small (1-33%) -Necrotic Tissue Type Adherent Slough Adherent Slough -Structure Exposed N/A -Texture (Earlene-wound Skin Appearance) Scarring Assessed -Moisture (Earlene-wound Skin Appearance) Assessed,Dry/ Dry/Scaly Scaly -Color (Earlene-wound Skin Appearance) Assessed Assessed -Temperature (Earlene-wound Skin No Abnormality No Abnormality Appearance) (Pt Warm) (Pt Warm) -Tenderness on Palpation (Earlene-wound No No Skin Appearance) -Ulcer Cleansing Soap and Water Wound Cleanser -Foul Odor after Cleansing No No -Anesthetic Used 5% Lidocaine 5% Lidocaine Gel Gel Lower Limb Edema Present Yes Yes Right Calf (cm) 48 47.5 Right Ankle (cm) 28 28.5 WC - Nurse 2 - General Ulcer CM Notes Start: 11/30/23 08:11 Freq: Status: Active Protocol: Activity Type Activity Date Activity User E-sign Co-sign Detail Recorded Client Recorded Date Recorded By Document 11/30/23 11:17 OVI [id number] 11/30/23 11:18 OVI 11/30/23 11:17 Wound Center Nurse 2 #8 RLE POST CLUSTER -Time 08:26 -Correct Patient Yes -Correct Side, Site, Position Yes -Correct Procedure Yes -Procedure Performed Yes -Type of Procedure Debridement -Clinical Debridement Subcutaneous -Tissue Removed Subcutaneous -Post Debridement (cm) - Length 1.5 -Post Debridement (cm) - Width 1.7 -Post Debridement (cm) - Depth 0.1 -Total Square (Post) (cm) 2.55 -Area of Debridement (cm) - Length 1.5 -Area of Debridement (cm) - Width 1.7 -Total Square (Area) (cm) 2.55 -Tunneling No -Undermining/Tunneling No -Circular Undermining No -Wound/Ulcer Outcome Not Healed -Ulcer Cleansing Rinsed/ Irrigated with Saline -Foul Odor after Cleansing No -Bioengineered Tissue No -Bleeding Controlled with Pressure -Treatment Response Procedure Tolerated Well -Debridement - Subq, 1st 20sq cm Yes Pain Scale: 0-10 Numeric Is Patient Pain Free? Yes - Nurse 3 - General Ulcer D/C NN Start: 11/30/23 08:11 Freq: Status: Active Protocol: Activity Type Activity Date Activity User E-sign Co-sign Detail Recorded Client Recorded Date Recorded By Document 11/30/23 08:41 RB Desktop 11/30/23 08:43 RB Document 12/07/23 08:38 KW Desktop 12/07/23 08:41 KW 11/30/23 12/07/23 08:41 08:38 Wound Care Center Nurse 3 #8 RLE POST CLUSTER -Ulcer Cleansing Rinsed/ Irrigated with Saline -Primary Dressing Applied Mepilex Border -Other Dressing aquacel AG -Primary Dressing Covered/Secured with Dry Gauze,Dry Gauze & Roll Gauze,Secured with Tape -Other Covering abd -Mepilex Border 1 Right -Tubular Bandage Single Layer -Size of Tubigrip Used Size E -Size E ($) 1 -Other circaid Left -Tubular Bandage Single Layer -Size of Tubigrip Used Size E -Size E ($) 1 -Other circaid Treatment Response Procedure Tolerated Well Pain Scale: 0-10 Numeric Is Patient Pain Free? Yes Yes Teaching: Wound Center Dressing Your Wound -Person Taught Patient -Teaching Method Discussion, Demonstration -Response to teaching Verbalize understanding WC - Visit Discharge Discharge Condition Stable Stable Ambulatory Status Ambulatory Ambulatory Transportation Private Auto Private Auto Medication Reconcilliation completed & No No provided to patient/care provider Clinical Summary of Care Provided Yes Yes Assessment/Plan Assessment/Plan (1) Lymphedema due to venous disease: CODE(S): I89.0 - Lymphedema, not elsewhere classified; I99.9 - Unspecified disorder of circulatory system (2) Venous ulcer of right leg: CODE(S): I83.019 - Varicose veins of right lower extremity with ulcer of unspecified site; L97.919 - Non-pressure chronic ulcer of unspecified part of right lower leg with unspecified severity (3) Chronic venous hypertension w/ulcer and inflammation involv right side: CODE(S): I87.331 - Chronic venous hypertension (idiopathic) with ulcer and inflammation of right lower extremity (4) Venous ulcer of left leg: CODE(S): I83.029 - Varicose veins of left lower extremity with ulcer of unspecified site; L97.929 - Non-pressure chronic ulcer of unspecified part of left lower leg with unspecified severity (5) Chronic venous hypertension w/ulcer and inflammation involv left side: CODE(S): I87.332 - Chronic venous hypertension (idiopathic) with ulcer and inflammation of left lower extremity (6) Chronic venous hypertension with inflammation involving left side: CODE(S): I87.322 - Chronic venous hypertension (idiopathic) with inflammation of left lower extremity (7) Venous stasis dermatitis of left lower extremity: CODE(S): I87.2 - Venous insufficiency (chronic) (peripheral) (8) Venous hypertension, chronic, with ulcer and inflammation: CODE(S): I87.339 - Chronic venous hypertension (idiopathic) with ulcer and inflammation of unspecified lower extremity; L97.909 - Non-pressure chronic ulcer of unspecified part of unspecified lower leg with unspecified severity QUALIFIERS: Laterality: right Qualified Code(s): I87.331 - Chronic venous hypertension (idiopathic) with ulcer and inflammation of right lower extremity; L97.919 - Non-pressure chronic ulcer of unspecified part of right lower leg with unspecified severity (9) Leg swelling: CODE(S): M79.89 - Other specified soft tissue disorders (10) Leg pain: CODE(S): M79.606 - Pain in leg, unspecified QUALIFIERS: Laterality: bilateral Qualified Code(s): M79.604 - Pain in right leg; M79.605 - Pain in left leg (11) Hyperlipidemia: CODE(S): E78.5 - Hyperlipidemia, unspecified (12) Hypertension: CODE(S): I10 - Essential (primary) hypertension (13) Lipodermatosclerosis: CODE(S): I83.10 - Varicose veins of unspecified lower extremity with inflammation (14) Hyperpigmentation: CODE(S): L81.9 - Disorder of pigmentation, unspecified (15) Morbid obesity: CODE(S): E66.01 - Morbid (severe) obesity due to excess calories (16) H/O umbilical hernia repair: CODE(S): Z98.890 - Other specified postprocedural states; Z87.19 - Personal history of other diseases of the digestive system (17) Chronic venous insufficiency: CODE(S): I87.2 - Venous insufficiency (chronic) (peripheral) PLAN: Plan This is a 53-year-old male with a longstanding history of chronic venous insufficiency, venous hypertension with inflammation and ulceration, and prior episodes of venous stasis ulcerations. He also experiences chronic swelling, edema, and lymphedema in his lower extremities. 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 The patient's occupation prevents him from elevating his lower extremities as recommended. The nature of his occupation requires long periods of idle sitting. A lengthy discussion has been undertaken as to the appropriate conservative treatment measures relative to the patient's presenting symptoms and manifestations. The patient has been treated for numerous weeks relative to the swelling, edema, and ulcerations in his lower extremities. However, the degree of swelling and edema, and the expanding ulcerations in the patient's lower extremities, associated with the development of cellulitis, prompted the patient to be referred to the emergency department for inpatient admission. The patient was admitted to [facility] on September 21, where an inpatient stay transpired for 4 days. During that period of time, the patient was treated with intravenous antibiotics which included Augmentin and Levaquin. The patient was subsequently discharged on oral Augmentin and Cipro, the course of which has now been completed. There continues to be significant improvement in the status of the patient's lower swelling, edema, and ulcerations. The swelling and edema in the lower extremities is minimized, and healing of the patient's ulcerations has been progressive in recent weeks. 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 This has enabled him to continue with concerted efforts at leg elevation. It appears as though the patient's absence from his truck cleaner employment, with idle sitting for 8 to 10 hours/day, has resulted in a significant improvement in the status of his lower extremities. We are to continue with conservative treatment measures which include leg elevation, avoidance of idle sitting, activity as tolerated, and compression to the patient's lower extremities by means of CircAid's. The patient has received new CircAid garments, and is to continue wearing on a daily basis. Weight loss has also been recommended. We are to continue with the use of Aquacel Ag topically to the ulceration on the right lateral calf. An EpiFix allograft has been applied [facility], the first such application of an allograft. The allograft and its overlying dressing is to remain in place, undisturbed, for the next week, and the patient is scheduled to return in 1 week for reassessment. Moisturizing skin lotion is to be applied topically to the intact skin in the gaiter areas bilaterally. We are in the process of attempting to procure pneumatic mechanical compression pumps for the patient's use. Total time: 26 minutes
[2023-12-14 08:21] VITALS: BP 131/54; PULSE 18; RESP 18; TEMP 36.2; BMI 51.7
--- NOTE | 2023-12-14 09:11 | PCM.WC.HP ---
History of Present Illness Date of Service: 12/14/23 Chief Complaint: Venous stasis dermatitis with swelling and edema bilaterally; venous stasis ulcerations of the lower extremities; bilateral lower extremity lymphedema History of Wound: This is a 53-year-old male with a longstanding history of chronic venous disease. He has previously been treated at this facility for venous stasis ulcerations of both lower extremities. He was most recently treated only several months prior to his current presentation. He presented at this time with bilateral lower extremity swelling, edema, and lymphedema, with venous ulcerations in the lower extremities. Upon his prior discharge, the patient had been instructed in the use of his Velcro compression garments. He had been advised to elevate his lower extremities as much as possible, to heart level, or higher. Efforts had been made to obtain pneumatic mechanical compression pumps, but the patient's insurance did not allow for this benefit. The patient has had chronic venous stasis dermatitis in his lower extremities for several years. 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 His profession requires him to sit for prolonged periods. The patient is morbidly obese. He denies a history of deep vein thrombosis in the past. He claims to sleep on a flat mattress at night. [facility] Medical History Chronic venous hypertension w/ulcer and inflammation involv left side Chronic venous hypertension w/ulcer and inflammation involv right side Chronic venous hypertension with inflammation involving left side Chronic venous insufficiency CPAP (continuous positive airway pressure) dependence GERD (gastroesophageal reflux disease) Hyperlipidemia Hyperpigmentation Hypertension Leg pain Leg swelling Lipodermatosclerosis Lymphedema due to venous disease Morbid obesity Non-smoker Sleep apnea Venous hypertension, chronic, with inflammation Venous hypertension, chronic, with ulcer and inflammation Venous stasis dermatitis of left lower extremity Venous stasis ulcer Venous ulcer of left leg Venous ulcer of right leg Home Medications furosemide 40 mg tablet 40 mg PO BID 06/24/21 [History Last Taken 09/20/23] lansoprazole 30 mg capsule,delayed release 30 mg PO DAILY 06/24/21 [History Last Taken 09/20/23] losartan 100 mg tablet 100 mg PO DAILY 06/24/21 [History Last Taken 09/20/23] pravastatin 10 mg tablet 10 mg PO DAILY 06/24/21 [History Last Taken 09/20/23] amoxicillin 875 mg-potassium clavulanate 125 mg tablet 1 tab PO BID #8 tabs 09/25/23 [Rx Last Taken Unknown] levofloxacin 750 mg tablet 750 mg PO DAILY #4 tabs 09/25/23 [Rx Last Taken Unknown] Allergy/AdvReac Type Severity Reaction Status Date / Time No Known Allergies Allergy Verified 09/21/23 09:25 Surgical History H/O umbilical hernia repair Social History 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 General Appearance: cooperative, comfortable, well kempt and well developed Orientation / Consciousness: awake, oriented to person, oriented to place and oriented to time HEENT normocephalic, head/scalp atraumatic and hearing grossly normal bilaterally Head and Scalp: normal to inspection, normocephalic and atraumatic Face and Sinus: normal facial exam External Ear: external ears normal Eyes PERRL and EOMs intact bilaterally General Eye: normal appearance of both eyes Resp normal respiratory effort, normal air movement, no retractions and no use of accessory muscles Effort and Inspection: able to speak in complete sentences and symmetric chest movement Extremity no calf tenderness General Extremity: Negative for clubbing or cyanosis Skin Wound Narrative: The swelling and edema in the patient's lower extremities is much improved, and remains at a minimum. Significant healing has occurred at the site of the large right lateral calf ulceration. There has been significant epithelialization and decrease in the size of the ulceration. The ulceration is generally pink and healthy in appearance. Dimensions are documented elsewhere. There is no sign of infection or cellulitis. There is a small amount of bioburden. There has been significant improvement in the exfoliative dermatitis in the right lower extremity. The skin is largely soft and supple, markedly improved in recent weeks. The ulcerations in the patient's left lower extremity have healed and are completely epithelialized. Lipodermatosclerosis and hyperpigmentation are noted in the gaiter areas bilaterally. A new wound is noted on the right pretibial surface, the result of a recent fall. Trauma has resulted in a wound which is quite superficial and located on the right pretibial surface. There is no sign of infection or cellulitis. Dimensions are documented elsewhere. Neuro oriented x3, CN's II-XII intact bilaterally, moves all extremities and no focal motor deficits Sensorium / Orientation: awake, alert, oriented to person, oriented to place and oriented to time Psych Appearance: grossly normal and appropriate Attitude: calm Activity / Motor Behavior: appropriate eye contact Speech: normal speech Mood & Affect: euthymic mood Thought Process: normal thought process Thought Content: normal thought content Attention / Concentration: attention grossly intact Debridement Note Debridement Note Wound debrided: Right lateral calf Laterality: Right Type of Debridement: Excisional debridement Anesthesia Used: 5% Lidocaine Gel Depth: Down to and including healthy tissue and in the subcutaneous layer Percentage of wound debrided: 100 Instrument Used: 3mm curette Tissue Removed: Bioburden and nonviable tissue Severity: Fat Layer Exposed Amount of bleeding with debridement: Mild Bleeding Controlled with: Compression and gauze Patient tolerated procedure: Patient tolerated procedure well Debridement Free Text: The excisional debridement was tolerated well. Following the excisional debridement, an 18 mm EpiFix allograft was applied. The 18 mm EpiFix allograft was removed from its sterile packaging. It was fashioned to the appropriate size and configuration, and placed topically on the right lateral calf ulceration in the appropriate orientation. Adaptic Touch was then placed over the graft, and anchored in place using Steri-Strips. The entire site was then covered with a foam dressing. The remaining 40% of the unused EpiFix allograft was then applied topically to the recent traumatic wound on the right pretibial surface. This was covered with Adaptic touch, and secured using Steri-Strips. A dry foam dressing was then applied. The patient tolerated the entire procedure well. This represents the second such application of an allograft. Post-Debridement Measurements and Additional Note: Post-Debridement Measurements/Treatment WC - Nurse 1 - General Ulcer Assessment Start: 11/30/23 08:11 Freq: Status: Active Protocol: JUSTINE Activity Type Activity Date Activity User E-sign Co-sign Detail Recorded Client Recorded Date Recorded By Document 11/30/23 08:11 KW Desktop 11/30/23 08:17 KW Document 12/07/23 08:13 RB Desktop 12/07/23 08:17 RB Document 12/14/23 08:21 MT Desktop 12/14/23 08:25 MT 11/30/23 12/07/23 12/14/23 08:11 08:13 08:21 - Today's Visit Information Type of service Follow-up Visit Follow-up Visit Follow-up Visit (Physician/CHICKEN CLEANER (Physician/CHICKEN CLEANER (Physician/CHICKEN CLEANER ) ) ) Arrival Mode Ambulatory Ambulatory Ambulatory Transfer Assistance None Patient Identification Verified (Name & Yes Yes Yes ) Patient Requires Transmission-Based No Precautions Height and Weight Body Mass Index (BMI) 51.7 51.7 51.7 BMI Classification Obese Obese Obese Vital Signs Temperature (97.8 F-99.1 F) 97.5 F L 96.7 F L 97.2 F L Temperature Source Temporal Temporal Temporal Pulse Rate (60-100) 78 55 L 18 L Pulse Location Monitor Monitor Monitor Respiratory Rate (12-18) 16 18 18 Respiratory rate source Observation Observation Observation Oxygen Delivery Method Room Air Room Air Blood Pressure (90/60-120/80) 171/78 H 154/60 H 131/54 H Blood Pressure Mean 109 91 79 Source Monitor Monitor Monitor Position Sitting Semi-Fowlers Semi-Fowlers Blood Pressure Location Right Forearm Right Arm Left Arm History Since Last Visit- (Skip if this is Patient's initial visit) Have you changed medications since your No No No last visit? Any new allergies or adverse reactions No No No Had a fall/change in ADL's that may No No Yes increase risk of falls Signs or symptoms of abuse and/or No No neglect since last visit Have you been in the hospital since your No No No last visit? Has dressing in place as prescribed Yes Yes Yes Has compression in place as prescribed Yes Yes Yes Has offloadiing in place as prescribed N/A No No Experienced any changes in pain level or No No No management Left Footwear Regular Shoe Regular Shoe Right Footwear Regular Shoe Regular Shoe Pain Scale: 0-10 Numeric Is Patient Pain Free? Yes Yes Yes WC - Nurse 1 - General Ulcer Measurement Start: 11/30/23 08:11 Freq: Status: Active Protocol: Activity Type Activity Date Activity User E-sign Co-sign Detail Recorded Client Recorded Date Recorded By Document 11/30/23 08:11 KW Desktop 11/30/23 08:17 KW Document 12/07/23 08:13 RB Desktop 12/07/23 08:17 RB Document 12/14/23 08:21 MT Desktop 12/14/23 08:25 MT 11/30/23 12/07/23 12/14/23 08:11 08:13 08:21 Wound Center Nurse 1 #8 RLE POST CLUSTER -Combined with other wound No No -Current Size (cm) - Length 1.5 0.1 -Current Size (cm) - Width 1.7 0.1 -Current Size (cm) - Depth 0.1 0.1 -Total Square Cm 2.55 0.01 -Date of Last Picture (Recall this 11/30/23 field) -Photo Taken Yes Yes -Epithelialization Small 1-33% -Tunneling No No -Undermining/Tunneling No No -Circular Undermining No No -Exudate Amt Medium Medium -Exudate Type Serosanguineous Serosanguineous -Wound Margin Distinct, Distinct, Outline Outline Attached Attached -Granulation Amt Large (67-100%) Medium (34-66%) -Granulation Quality Red [place],Red -Slough/Fibrin Yes Yes -Necrosis Amt Small (1-33%) Small (1-33%) -Necrotic Tissue Type Adherent Slough Adherent Slough -Structure Exposed N/A -Texture (Earlene-wound Skin Appearance) Scarring Assessed -Moisture (Earlene-wound Skin Appearance) Assessed,Dry/ Dry/Scaly Scaly -Color (Earlene-wound Skin Appearance) Assessed Assessed -Temperature (Earlene-wound Skin No Abnormality No Abnormality Appearance) (Pt Warm) (Pt Warm) -Tenderness on Palpation (Earlene-wound No No Skin Appearance) -Ulcer Cleansing Soap and Water Wound Cleanser -Foul Odor after Cleansing No No -Anesthetic Used 5% Lidocaine 5% Lidocaine Gel Gel 7. RLE anterior -Current Size (cm) - Length 0.1 -Current Size (cm) - Width 0.1 -Current Size (cm) - Depth 0.1 -Total Square Cm 0.01 -Exudate Amt Small -Exudate Type Serosanguineous -Wound Margin Thickened -Granulation Amt Small (1-33%) -Granulation Quality Red -Texture (Earlene-wound Skin Appearance) Assessed -Moisture (Earlene-wound Skin Appearance) Assessed -Color (Earlene-wound Skin Appearance) Erythema -Temperature (Earlene-wound Skin No Abnormality Appearance) (Pt Warm) -Ulcer Cleansing Soap and Water -Anesthetic Used 5% Lidocaine Gel Lower Limb Edema Present Yes Yes Right Calf (cm) 48 47.5 Right Ankle (cm) 28 28.5 WC - Nurse 2 - General Ulcer CM Notes Start: 11/30/23 08:11 Freq: Status: Active Protocol: Activity Type Activity Date Activity User E-sign Co-sign Detail Recorded Client Recorded Date Recorded By Document 11/30/23 11:17 PL [id number] 11/30/23 11:18 PL Document 12/07/23 10:54 PL [id number] 12/07/23 10:55 PL Document 12/14/23 08:40 PL Tablet 12/14/23 08:42 PL 11/30/23 12/07/23 12/14/23 11:17 10:54 08:40 Wound Center Nurse 2 #8 RLE POST CLUSTER -Time 08:26 08:22 -Correct Patient Yes Yes -Correct Side, Site, Position Yes Yes -Correct Procedure Yes Yes -Procedure Performed Yes Yes -Type of Procedure Debridement Debridement -Clinical Debridement Subcutaneous Subcutaneous -Tissue Removed Subcutaneous Subcutaneous -Post Debridement (cm) - Length 1.5 0.4 -Post Debridement (cm) - Width 1.7 0.4 -Post Debridement (cm) - Depth 0.1 0.1 -Total Square (Post) (cm) 2.55 0.16 -Area of Debridement (cm) - Length 1.5 0.4 -Area of Debridement (cm) - Width 1.7 0.4 -Total Square (Area) (cm) 2.55 0.16 -Tunneling No No -Undermining/Tunneling No No -Circular Undermining No No -Wound/Ulcer Outcome Not Healed Not Healed -Ulcer Cleansing Rinsed/ Rinsed/ Irrigated with Irrigated with Saline Saline -Foul Odor after Cleansing No No -Bioengineered Tissue No Yes -Type of Bioengineered Tissue Epifix 18mm Disc -Expiration Date 07/30/28 -Product Lot Number [id number] -Percent Used 100 -Bleeding Controlled with Pressure Pressure -Treatment Response Procedure Procedure Tolerated Well Tolerated Well -Debridement - Subq, 1st 20sq cm Yes No -Apply Skin Sub - 1st 25 sq cm - Legs 1 -Epifix 18mm Disc 3 7. RLE anterior -Time 08:30 -Correct Patient Yes -Correct Side, Site, Position Yes -Correct Procedure Yes -Procedure Performed Yes -Type of Procedure Debridement -Clinical Debridement Subcutaneous -Tissue Removed Subcutaneous -Post Debridement (cm) - Length 0.1 -Post Debridement (cm) - Width 0.1 -Post Debridement (cm) - Depth 0.1 -Total Square (Post) (cm) 0.01 -Area of Debridement (cm) - Length 0.1 -Area of Debridement (cm) - Width 0.1 -Total Square (Area) (cm) 0.01 -Tunneling No -Undermining/Tunneling No -Circular Undermining No -Wound/Ulcer Outcome Not Healed -Ulcer Cleansing Rinsed/ Irrigated with Saline -Foul Odor after Cleansing No -Bioengineered Tissue Yes -Type of Bioengineered Tissue Epifix 18mm Disc -Expiration Date 07/30/28 -Product Lot Number [id number] -Percent Used 100 -Bleeding Controlled with Pressure -Treatment Response Procedure Tolerated Well -Debridement - Subq, 1st 20sq cm No -Apply Skin Sub - 1st 25 sq cm - Legs 1 -Epifix 18mm Disc 3 Pain Scale: 0-10 Numeric Is Patient Pain Free? Yes Yes Yes WC - Nurse 3 - General Ulcer D/C NN Start: 11/30/23 08:11 Freq: Status: Active Protocol: Activity Type Activity Date Activity User E-sign Co-sign Detail Recorded Client Recorded Date Recorded By Document 11/30/23 08:41 RB Desktop 11/30/23 08:43 RB Document 12/07/23 08:38 KW Desktop 12/07/23 08:41 KW Document 12/14/23 08:41 MT Desktop 12/14/23 08:43 MT 11/30/23 12/07/23 12/14/23 08:41 08:38 08:41 Wound Care Center Nurse 3 #8 RLE POST CLUSTER -Ulcer Cleansing Rinsed/ Irrigated with Saline -Primary Dressing Applied Mepilex Border -Other Dressing aquacel AG -Primary Dressing Covered/Secured with Dry Gauze,Dry Gauze & Roll Gauze,Secured with Tape -Other Covering abd -Mepilex Border 1 7. RLE anterior -Ulcer Cleansing Soap and Water -Foul Odor after Cleansing No -Negative Pressure Wound Therapy N/A -Other Dressing epifix -Primary Dressing Covered/Secured with Dry Gauze & Roll Gauze, Secured with Tape Right -Tubular Bandage Single Layer Single Layer -Size of Tubigrip Used Size E Size E -Size E ($) 1 1 -Other circaid Left -Tubular Bandage Single Layer -Size of Tubigrip Used Size E -Size E ($) 1 -Other circaid Treatment Response Procedure Tolerated Well Pain Scale: 0-10 Numeric Is Patient Pain Free? Yes Yes Yes Teaching: Wound Center Dressing Your Wound -Person Taught Patient -Teaching Method Discussion, Demonstration -Response to teaching Verbalize understanding WC - Visit Discharge Discharge Condition Stable Stable Stable Ambulatory Status Ambulatory Ambulatory Ambulatory Transportation Private Auto Private Auto Private Auto Medication Reconcilliation completed & No No No provided to patient/care provider Clinical Summary of Care Provided Yes Yes Yes Assessment/Plan Assessment/Plan (1) Lymphedema due to venous disease: CODE(S): I89.0 - Lymphedema, not elsewhere classified; I99.9 - Unspecified disorder of circulatory system (2) Venous ulcer of right leg: CODE(S): I83.019 - Varicose veins of right lower extremity with ulcer of unspecified site; L97.919 - Non-pressure chronic ulcer of unspecified part of right lower leg with unspecified severity (3) Chronic venous hypertension w/ulcer and inflammation involv right side: CODE(S): I87.331 - Chronic venous hypertension (idiopathic) with ulcer and inflammation of right lower extremity (4) Venous ulcer of left leg: CODE(S): I83.029 - Varicose veins of left lower extremity with ulcer of unspecified site; L97.929 - Non-pressure chronic ulcer of unspecified part of left lower leg with unspecified severity (5) Chronic venous hypertension w/ulcer and inflammation involv left side: CODE(S): I87.332 - Chronic venous hypertension (idiopathic) with ulcer and inflammation of left lower extremity (6) Chronic venous hypertension with inflammation involving left side: CODE(S): I87.322 - Chronic venous hypertension (idiopathic) with inflammation of left lower extremity (7) Venous stasis dermatitis of left lower extremity: CODE(S): I87.2 - Venous insufficiency (chronic) (peripheral) (8) Venous hypertension, chronic, with ulcer and inflammation: CODE(S): I87.339 - Chronic venous hypertension (idiopathic) with ulcer and inflammation of unspecified lower extremity; L97.909 - Non-pressure chronic ulcer of unspecified part of unspecified lower leg with unspecified severity QUALIFIERS: Laterality: right Qualified Code(s): I87.331 - Chronic venous hypertension (idiopathic) with ulcer and inflammation of right lower extremity; L97.919 - Non-pressure chronic ulcer of unspecified part of right lower leg with unspecified severity (9) Leg swelling: CODE(S): M79.89 - Other specified soft tissue disorders (10) Leg pain: CODE(S): M79.606 - Pain in leg, unspecified QUALIFIERS: Laterality: bilateral Qualified Code(s): M79.604 - Pain in right leg; M79.605 - Pain in left leg (11) Hyperlipidemia: CODE(S): E78.5 - Hyperlipidemia, unspecified (12) Hypertension: CODE(S): I10 - Essential (primary) hypertension (13) Lipodermatosclerosis: CODE(S): I83.10 - Varicose veins of unspecified lower extremity with inflammation (14) Hyperpigmentation: CODE(S): L81.9 - Disorder of pigmentation, unspecified (15) Morbid obesity: CODE(S): E66.01 - Morbid (severe) obesity due to excess calories (16) H/O umbilical hernia repair: CODE(S): Z98.890 - Other specified postprocedural states; Z87.19 - Personal history of other diseases of the digestive system (17) Chronic venous insufficiency: CODE(S): I87.2 - Venous insufficiency (chronic) (peripheral) PLAN: Plan This is a 53-year-old male with a longstanding history of chronic venous insufficiency, venous hypertension with inflammation and ulceration, and prior episodes of venous stasis ulcerations. He also experiences chronic swelling, edema, and lymphedema in his lower extremities. 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 The patient's occupation prevents him from elevating his lower extremities as recommended. The nature of his occupation requires long periods of idle sitting. A lengthy discussion has been undertaken as to the appropriate conservative treatment measures relative to the patient's presenting symptoms and manifestations. The patient has been treated for numerous weeks relative to the swelling, edema, and ulcerations in his lower extremities. However, the degree of swelling and edema, and the expanding ulcerations in the patient's lower extremities, associated with the development of cellulitis, prompted the patient to be referred to the emergency department for inpatient admission. The patient was admitted to [facility] on September 21, where an inpatient stay transpired for 4 days. During that period of time, the patient was treated with intravenous antibiotics which included Augmentin and Levaquin. The patient was subsequently discharged on oral Augmentin and Cipro, the course of which has now been completed. There continues to be significant improvement in the status of the patient's lower swelling, edema, and ulcerations. The swelling and edema in the lower extremities is minimized, and healing of the patient's ulcerations has been progressive in recent weeks. 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 This has enabled him to continue with concerted efforts at leg elevation. 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 We are to continue with conservative treatment measures which include leg elevation, avoidance of idle sitting, activity as tolerated, and compression to the patient's lower extremities by means of CircAid's. The patient has received new CircAid garments, and is to continue wearing on a daily basis. Weight loss has also been recommended. An EpiFix allograft has been applied [facility], the second such application of an allograft. The allograft and its overlying dressing are to remain in place, undisturbed, for the next week, and the patient is scheduled to return in 1 week for reassessment. Moisturizing skin lotion is to be applied topically to the intact skin in the gaiter areas bilaterally. We are in the process of attempting to procure pneumatic mechanical compression pumps for the patient's use. Total time: 25 minutes
[2023-12-21 08:07] VITALS: BP 172/72; PULSE 51; RESP 18; TEMP 36.2; BMI 51.7
--- NOTE | 2023-12-21 08:53 | HP.PCM_ITS ---
History of Present Illness Date of Service: 12/21/23 Chief Complaint: Venous stasis dermatitis with swelling and edema bilaterally; venous stasis ulcerations of the lower extremities; bilateral lower extremity lymphedema History of Wound: This is a 53-year-old male with a longstanding history of chronic venous disease. He has previously been treated at this facility for venous stasis ulcerations of both lower extremities. He was most recently treated only several months prior to his current presentation. He presented at this time with bilateral lower extremity swelling, edema, and lymphedema, with venous ulcerations in the lower extremities. Upon his prior discharge, the patient had been instructed in the use of his Velcro compression garments. He had been advised to elevate his lower extremities as much as possible, to heart level, or higher. Efforts had been made to obtain pneumatic mechanical compression pumps, but the patient's insurance did not allow for this benefit. The patient has had chronic venous stasis dermatitis in his lower extremities for several years. 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 His profession requires him to sit for prolonged periods. The patient is morbidly obese. He denies a history of deep vein thrombosis in the past. He claims to sleep on a flat mattress at night. [facility] Medical History Chronic venous hypertension w/ulcer and inflammation involv left side Chronic venous hypertension w/ulcer and inflammation involv right side Chronic venous insufficiency CPAP (continuous positive airway pressure) dependence GERD (gastroesophageal reflux disease) Hyperlipidemia Hyperpigmentation Hypertension Leg pain Leg swelling Lipodermatosclerosis Lymphedema due to venous disease Morbid obesity Non-smoker Sleep apnea Venous stasis dermatitis of left lower extremity Venous ulcer of left leg Venous ulcer of right leg Home Medications furosemide 40 mg tablet 40 mg PO BID 06/24/21 [History Last Taken 09/20/23] lansoprazole 30 mg capsule,delayed release 30 mg PO DAILY 06/24/21 [History Last Taken 09/20/23] losartan 100 mg tablet 100 mg PO DAILY 06/24/21 [History Last Taken 09/20/23] pravastatin 10 mg tablet 10 mg PO DAILY 06/24/21 [History Last Taken 09/20/23] Allergy/AdvReac Type Severity Reaction Status Date / Time No Known Allergies Allergy Verified 12/20/23 07:33 Family History Father Cancer prostate Diabetes Heart disease Hypertension Grandfather Cancer unknown Grandmother Heart disease Surgical History H/O umbilical hernia repair Social History household members: none current occupational status: employed 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 Smoking Status: Never smoker Electronic Cigarette Use: not used alcohol intake: never details: The patient denies use of alcohol substance use type: does not use what type of physical activity do you participate in: none do you feel safe at home: Yes Vital Signs Vital Signs Vital Signs: 12/21/23 08:07 Temperature 97.2 F L Temperature Source Temporal Pulse Rate 51 L Respiratory Rate 18 Blood Pressure 172/72 H Blood Pressure Mean 105 Blood Pressure Source Monitor Blood Pressure Position Sitting Blood Pressure Location Left Forearm Oxygen Delivery Method Room Air Weight Weight: 350 lb Body Mass Index (BMI) 51.7 Physical Exam Const alert, oriented x3, no apparent distress and well nourished Constitutional Narrative: The patient is morbidly obese. General Appearance: cooperative, comfortable, well kempt and well developed Orientation / Consciousness: awake, oriented to person, oriented to place and oriented to time HEENT normocephalic, head/scalp atraumatic and hearing grossly normal bilaterally Head and Scalp: normal to inspection, normocephalic and atraumatic Face and Sinus: normal facial exam External Ear: external ears normal Eyes PERRL and EOMs intact bilaterally General Eye: normal appearance of both eyes Resp normal respiratory effort, normal air movement, no retractions and no use of accessory muscles Effort and Inspection: able to speak in complete sentences and symmetric chest movement Extremity no calf tenderness General Extremity: Negative for clubbing or cyanosis Skin Wound Narrative: The swelling and edema in the patient's lower extremities is much improved, and remains at a minimum. Significant healing has occurred at the site of the large right lateral calf ulceration. There has been significant epithelialization and decrease in the size of the ulceration. At this time, a small, superficial eschar remains on the right lateral calf ulceration and on the right pretibial ulceration. Dimensions are documented elsewhere. Each of the 2 eschars are dry, and appear to represent the end-stage of healing. Dimensions are documented elsewhere. There is no sign of infection or cellulitis. There has been significant improvement in the exfoliative dermatitis in the right lower extremity. The skin is largely soft and supple, markedly improved in recent weeks. The ulcerations in the patient's left lower extremity have healed and are completely epithelialized. Lipodermatosclerosis and hyperpigmentation are noted in the gaiter areas bilaterally. Neuro oriented x3, CN's II-XII intact bilaterally, moves all extremities and no focal motor deficits Sensorium / Orientation: awake, alert, oriented to person, oriented to place and oriented to time Psych Appearance: grossly normal and appropriate Attitude: calm Activity / Motor Behavior: appropriate eye contact Speech: normal speech Mood & Affect: euthymic mood Thought Process: normal thought process Thought Content: normal thought content Attention / Concentration: attention grossly intact Debridement Note Debridement Note No debridement was completed: No debridement was completed today Post-Debridement Measurements and Additional Note: Post-Debridement Measurements/Treatment - Nurse 1 - General Ulcer Assessment Start: 11/30/23 08:11 Freq: Status: Active Protocol: ELVER.CEM Activity Type Activity Date Activity User E-sign Co-sign Detail Recorded Client Recorded Date Recorded By Document 11/30/23 08:11 KW Desktop 11/30/23 08:17 KW Document 12/07/23 08:13 RB Desktop 12/07/23 08:17 RB Document 12/14/23 08:21 MT Desktop 12/14/23 08:25 MT Document 12/21/23 08:07 KW [id number] 12/21/23 08:09 KW 11/30/23 12/07/23 12/14/23 08:11 08:13 08:21 - Today's Visit Information Type of service Follow-up Visit Follow-up Visit Follow-up Visit (Physician/POLYGRAPH EXAMINER (Physician/POLYGRAPH EXAMINER (Physician/POLYGRAPH EXAMINER ) ) ) Arrival Mode Ambulatory Ambulatory Ambulatory Transfer Assistance None Patient Identification Verified (Name & Yes Yes Yes ) Patient Requires Transmission-Based No Precautions Height and Weight Body Mass Index (BMI) 51.7 51.7 51.7 BMI Classification Obese Obese Obese Vital Signs Temperature (97.8 F-99.1 F) 97.5 F L 96.7 F L 97.2 F L Temperature Source Temporal Temporal Temporal Pulse Rate (60-100) 78 55 L 18 L Pulse Location Monitor Monitor Monitor Respiratory Rate (12-18) 16 18 18 Respiratory rate source Observation Observation Observation Oxygen Delivery Method Room Air Room Air Blood Pressure (90/60-120/80) 171/78 H 154/60 H 131/54 H Blood Pressure Mean 109 91 79 Source Monitor Monitor Monitor Position Sitting Semi-Fowlers Semi-Fowlers Blood Pressure Location Right Forearm Right Arm Left Arm History Since Last Visit- (Skip if this is Patient's initial visit) Have you changed medications since your No No No last visit? Any new allergies or adverse reactions No No No Had a fall/change in ADL's that may No No Yes increase risk of falls Signs or symptoms of abuse and/or No No neglect since last visit Have you been in the hospital since your No No No last visit? Has dressing in place as prescribed Yes Yes Yes Has compression in place as prescribed Yes Yes Yes Has offloadiing in place as prescribed N/A No No Experienced any changes in pain level or No No No management Left Footwear Regular Shoe Regular Shoe Right Footwear Regular Shoe Regular Shoe Pain Scale: 0-10 Numeric Is Patient Pain Free? Yes Yes Yes 12/21/23 08:07 WC - Today's Visit Information Type of service Follow-up Visit (Physician/POLYGRAPH EXAMINER ) Arrival Mode Ambulatory Transfer Assistance Patient Identification Verified (Name & Yes ) Patient Requires Transmission-Based Precautions Height and Weight Body Mass Index (BMI) 51.7 BMI Classification Obese Vital Signs Temperature (97.8 F-99.1 F) 97.2 F L Temperature Source Temporal Pulse Rate (60-100) 51 L Pulse Location Monitor Respiratory Rate (12-18) 18 Respiratory rate source Observation Oxygen Delivery Method Room Air Blood Pressure (90/60-120/80) 172/72 H Blood Pressure Mean 105 Source Monitor Position Sitting Blood Pressure Location Left Forearm History Since Last Visit- (Skip if this is Patient's initial visit) Have you changed medications since your No last visit? Any new allergies or adverse reactions No Had a fall/change in ADL's that may No increase risk of falls Signs or symptoms of abuse and/or No neglect since last visit Have you been in the hospital since your No last visit? Has dressing in place as prescribed Yes Has compression in place as prescribed Yes Has offloadiing in place as prescribed N/A Experienced any changes in pain level or No management Left Footwear Regular Shoe Right Footwear Regular Shoe Pain Scale: 0-10 Numeric Is Patient Pain Free? Yes WC - Nurse 1 - General Ulcer Measurement Start: 11/30/23 08:11 Freq: Status: Active Protocol: Activity Type Activity Date Activity User E-sign Co-sign Detail Recorded Client Recorded Date Recorded By Document 11/30/23 08:11 KW Desktop 11/30/23 08:17 KW Document 12/07/23 08:13 RB Desktop 12/07/23 08:17 RB Document 12/14/23 08:21 MT Desktop 12/14/23 08:25 MT Document 12/21/23 08:07 KW [id number] 12/21/23 08:09 KW 11/30/23 12/07/23 12/14/23 08:11 08:13 08:21 Wound Center Nurse 1 #8 RLE POST CLUSTER -Combined with other wound No No -Current Size (cm) - Length 1.5 0.1 -Current Size (cm) - Width 1.7 0.1 -Current Size (cm) - Depth 0.1 0.1 -Total Square Cm 2.55 0.01 -Date of Last Picture (Recall this 11/30/23 field) -Photo Taken Yes Yes -Epithelialization Small 1-33% -Tunneling No No -Undermining/Tunneling No No -Circular Undermining No No -Exudate Amt Medium Medium -Exudate Type Serosanguineous Serosanguineous -Wound Margin Distinct, Distinct, Outline Outline Attached Attached -Granulation Amt Large (67-100%) Medium (34-66%) -Granulation Quality Red [place],Red -Slough/Fibrin Yes Yes -Necrosis Amt Small (1-33%) Small (1-33%) -Necrotic Tissue Type Adherent Slough Adherent Slough -Structure Exposed N/A -Texture (Earlene-wound Skin Appearance) Scarring Assessed -Moisture (Earlene-wound Skin Appearance) Assessed,Dry/ Dry/Scaly Scaly -Color (Earlene-wound Skin Appearance) Assessed Assessed -Temperature (Earlene-wound Skin No Abnormality No Abnormality Appearance) (Pt Warm) (Pt Warm) -Tenderness on Palpation (Earlene-wound No No Skin Appearance) -Ulcer Cleansing Soap and Water Wound Cleanser -Foul Odor after Cleansing No No -Anesthetic Used 5% Lidocaine 5% Lidocaine Gel Gel 7. RLE anterior -Current Size (cm) - Length 0.1 -Current Size (cm) - Width 0.1 -Current Size (cm) - Depth 0.1 -Total Square Cm 0.01 -Date of Last Picture (Recall this field) -Photo Taken -Exudate Amt Small -Exudate Type Serosanguineous -Wound Margin Thickened -Granulation Amt Small (1-33%) -Granulation Quality Red -Texture (Earlene-wound Skin Appearance) Assessed -Moisture (Earlene-wound Skin Appearance) Assessed -Color (Earlene-wound Skin Appearance) Erythema -Temperature (Earlene-wound Skin No Abnormality Appearance) (Pt Warm) -Ulcer Cleansing Soap and Water -Anesthetic Used 5% Lidocaine Gel -Wound Comment(s) Lower Limb Edema Present Yes Yes Right Calf (cm) 48 47.5 Right Ankle (cm) 28 28.5 12/21/23 08:07 Wound Center Nurse 1 #8 RLE POST CLUSTER -Combined with other wound -Current Size (cm) - Length -Current Size (cm) - Width -Current Size (cm) - Depth -Total Square Cm -Date of Last Picture (Recall this field) -Photo Taken -Epithelialization -Tunneling -Undermining/Tunneling -Circular Undermining -Exudate Amt -Exudate Type -Wound Margin -Granulation Amt -Granulation Quality -Slough/Fibrin -Necrosis Amt -Necrotic Tissue Type -Structure Exposed -Texture (Earlene-wound Skin Appearance) -Moisture (Earlene-wound Skin Appearance) -Color (Earlene-wound Skin Appearance) -Temperature (Earlene-wound Skin Appearance) -Tenderness on Palpation (Earlene-wound Skin Appearance) -Ulcer Cleansing -Foul Odor after Cleansing -Anesthetic Used 7. RLE anterior -Current Size (cm) - Length 0.3 -Current Size (cm) - Width 0.3 -Current Size (cm) - Depth 0.1 -Total Square Cm 0.09 -Date of Last Picture (Recall this 12/21/23 field) -Photo Taken Yes -Exudate Amt -Exudate Type -Wound Margin -Granulation Amt -Granulation Quality -Texture (Earlene-wound Skin Appearance) -Moisture (Earlene-wound Skin Appearance) -Color (Earlene-wound Skin Appearance) -Temperature (Earlene-wound Skin No Abnormality Appearance) (Pt Warm) -Ulcer Cleansing Soap and Water -Anesthetic Used 5% Lidocaine Gel -Wound Comment(s) scabbed area. Lower Limb Edema Present Right Calf (cm) Right Ankle (cm) WC - Nurse 2 - General Ulcer CM Notes Start: 11/30/23 08:11 Freq: Status: Active Protocol: Activity Type Activity Date Activity User E-sign Co-sign Detail Recorded Client Recorded Date Recorded By Document 11/30/23 11:17 PL [id number] 11/30/23 11:18 PL Document 12/07/23 10:54 PL [id number] 12/07/23 10:55 PL Document 12/14/23 08:40 PL Tablet 12/14/23 08:42 PL 11/30/23 12/07/23 12/14/23 11:17 10:54 08:40 Wound Center Nurse 2 #8 RLE POST CLUSTER -Time 08:26 08:22 -Correct Patient Yes Yes -Correct Side, Site, Position Yes Yes -Correct Procedure Yes Yes -Procedure Performed Yes Yes -Type of Procedure Debridement Debridement -Clinical Debridement Subcutaneous Subcutaneous -Tissue Removed Subcutaneous Subcutaneous -Post Debridement (cm) - Length 1.5 0.4 -Post Debridement (cm) - Width 1.7 0.4 -Post Debridement (cm) - Depth 0.1 0.1 -Total Square (Post) (cm) 2.55 0.16 -Area of Debridement (cm) - Length 1.5 0.4 -Area of Debridement (cm) - Width 1.7 0.4 -Total Square (Area) (cm) 2.55 0.16 -Tunneling No No -Undermining/Tunneling No No -Circular Undermining No No -Wound/Ulcer Outcome Not Healed Not Healed -Ulcer Cleansing Rinsed/ Rinsed/ Irrigated with Irrigated with Saline Saline -Foul Odor after Cleansing No No -Bioengineered Tissue No Yes -Type of Bioengineered Tissue Epifix 18mm Disc -Expiration Date 07/30/28 -Product Lot Number [id number] -Percent Used 100 -Bleeding Controlled with Pressure Pressure -Treatment Response Procedure Procedure Tolerated Well Tolerated Well -Debridement - Subq, 1st 20sq cm Yes No -Apply Skin Sub - 1st 25 sq cm - Legs 1 -Epifix 18mm Disc 3 7. RLE anterior -Time 08:30 -Correct Patient Yes -Correct Side, Site, Position Yes -Correct Procedure Yes -Procedure Performed Yes -Type of Procedure Debridement -Clinical Debridement Subcutaneous -Tissue Removed Subcutaneous -Post Debridement (cm) - Length 0.1 -Post Debridement (cm) - Width 0.1 -Post Debridement (cm) - Depth 0.1 -Total Square (Post) (cm) 0.01 -Area of Debridement (cm) - Length 0.1 -Area of Debridement (cm) - Width 0.1 -Total Square (Area) (cm) 0.01 -Tunneling No -Undermining/Tunneling No -Circular Undermining No -Wound/Ulcer Outcome Not Healed -Ulcer Cleansing Rinsed/ Irrigated with Saline -Foul Odor after Cleansing No -Bioengineered Tissue Yes -Type of Bioengineered Tissue Epifix 18mm Disc -Expiration Date 07/30/28 -Product Lot Number [id number] -Percent Used 100 -Bleeding Controlled with Pressure -Treatment Response Procedure Tolerated Well -Debridement - Subq, 1st 20sq cm No -Apply Skin Sub - 1st 25 sq cm - Legs 1 -Epifix 18mm Disc 3 Pain Scale: 0-10 Numeric Is Patient Pain Free? Yes Yes Yes WC - Nurse 3 - General Ulcer D/C NN Start: 11/30/23 08:11 Freq: Status: Active Protocol: Activity Type Activity Date Activity User E-sign Co-sign Detail Recorded Client Recorded Date Recorded By Document 11/30/23 08:41 RB Desktop 11/30/23 08:43 RB Document 12/07/23 08:38 KW Desktop 12/07/23 08:41 KW Document 12/14/23 08:41 MT Desktop 12/14/23 08:43 MT Document 12/21/23 08:35 Desktop 12/21/23 08:35 11/30/23 12/07/23 12/14/23 08:41 08:38 08:41 Wound Care Center Nurse 3 #8 RLE POST CLUSTER -Ulcer Cleansing Rinsed/ Irrigated with Saline -Primary Dressing Applied Mepilex Border -Other Dressing aquacel AG -Primary Dressing Covered/Secured with Dry Gauze,Dry Gauze & Roll Gauze,Secured with Tape -Other Covering abd -Mepilex Border 1 7. RLE anterior -Ulcer Cleansing Soap and Water -Foul Odor after Cleansing No -Negative Pressure Wound Therapy N/A -Primary Dressing Applied -Other Dressing epifix -Primary Dressing Covered/Secured with Dry Gauze & Roll Gauze, Secured with Tape Right -Tubular Bandage Single Layer Single Layer -Size of Tubigrip Used Size E Size E -Size E ($) 1 1 -Other circaid Left -Tubular Bandage Single Layer -Size of Tubigrip Used Size E -Size E ($) 1 -Other circaid Treatment Response Procedure Tolerated Well Pain Scale: 0-10 Numeric Is Patient Pain Free? Yes Yes Yes Teaching: Wound Center Dressing Your Wound -Person Taught Patient -Teaching Method Discussion, Demonstration -Response to teaching Verbalize understanding WC - Visit Discharge Discharge Condition Stable Stable Stable Ambulatory Status Ambulatory Ambulatory Ambulatory Transportation Private Auto Private Auto Private Auto Medication Reconcilliation completed & No No No provided to patient/care provider Clinical Summary of Care Provided Yes Yes Yes 12/21/23 08:35 Wound Care Center Nurse 3 #8 RLE POST CLUSTER -Ulcer Cleansing -Primary Dressing Applied -Other Dressing -Primary Dressing Covered/Secured with -Other Covering -Mepilex Border 7. RLE anterior -Ulcer Cleansing Rinsed/ Irrigated with Saline -Foul Odor after Cleansing -Negative Pressure Wound Therapy -Primary Dressing Applied C Hydrogel ($) -Other Dressing -Primary Dressing Covered/Secured with Dry Gauze & Roll Gauze, Secured with Tape Right -Tubular Bandage Single Layer -Size of Tubigrip Used Size E -Size E ($) 1 -Other Left -Tubular Bandage -Size of Tubigrip Used -Size E ($) -Other Treatment Response Pain Scale: 0-10 Numeric Is Patient Pain Free? Yes Teaching: Wound Center Dressing Your Wound -Person Taught -Teaching Method -Response to teaching WC - Visit Discharge Discharge Condition Stable Ambulatory Status Ambulatory Transportation Private Auto Medication Reconcilliation completed & No provided to patient/care provider Clinical Summary of Care Provided Yes Assessment/Plan Assessment/Plan (1) Lymphedema due to venous disease: CODE(S): I89.0 - Lymphedema, not elsewhere classified; I99.9 - Unspecified disorder of circulatory system (2) Venous ulcer of right leg: CODE(S): I83.019 - Varicose veins of right lower extremity with ulcer of unspecified site; L97.919 - Non-pressure chronic ulcer of unspecified part of right lower leg with unspecified severity (3) Chronic venous hypertension w/ulcer and inflammation involv right side: CODE(S): I87.331 - Chronic venous hypertension (idiopathic) with ulcer and inflammation of right lower extremity (4) Venous ulcer of left leg: CODE(S): I83.029 - Varicose veins of left lower extremity with ulcer of unspecified site; L97.929 - Non-pressure chronic ulcer of unspecified part of left lower leg with unspecified severity (5) Chronic venous hypertension w/ulcer and inflammation involv left side: CODE(S): I87.332 - Chronic venous hypertension (idiopathic) with ulcer and inflammation of left lower extremity (6) Chronic venous hypertension with inflammation involving left side: CODE(S): I87.322 - Chronic venous hypertension (idiopathic) with inflammation of left lower extremity (7) Venous stasis dermatitis of left lower extremity: CODE(S): I87.2 - Venous insufficiency (chronic) (peripheral) (8) Venous hypertension, chronic, with ulcer and inflammation: CODE(S): I87.339 - Chronic venous hypertension (idiopathic) with ulcer and inflammation of unspecified lower extremity; L97.909 - Non-pressure chronic ulcer of unspecified part of unspecified lower leg with unspecified severity QUALIFIERS: Laterality: right Qualified Code(s): I87.331 - Chronic venous hypertension (idiopathic) with ulcer and inflammation of right lower extremity; L97.919 - Non-pressure chronic ulcer of unspecified part of right lower leg with unspecified severity (9) Leg swelling: CODE(S): M79.89 - Other specified soft tissue disorders (10) Leg pain: CODE(S): M79.606 - Pain in leg, unspecified QUALIFIERS: Laterality: bilateral Qualified Code(s): M79.604 - Pain in right leg; M79.605 - Pain in left leg (11) Hyperlipidemia: CODE(S): E78.5 - Hyperlipidemia, unspecified (12) Hypertension: CODE(S): I10 - Essential (primary) hypertension (13) Lipodermatosclerosis: CODE(S): I83.10 - Varicose veins of unspecified lower extremity with inflammation (14) Hyperpigmentation: CODE(S): L81.9 - Disorder of pigmentation, unspecified (15) Morbid obesity: CODE(S): E66.01 - Morbid (severe) obesity due to excess calories (16) H/O umbilical hernia repair: CODE(S): Z98.890 - Other specified postprocedural states; Z87.19 - Personal history of other diseases of the digestive system (17) Chronic venous insufficiency: CODE(S): I87.2 - Venous insufficiency (chronic) (peripheral) PLAN: Plan This is a 53-year-old male with a longstanding history of chronic venous ins ufficiency, venous hypertension with inflammation and ulceration, and prior episodes of venous stasis ulcerations. He also experiences chronic swelling, edema, and lymphedema in his lower extremities. 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 The patient's occupation prevents him from elevating his lower extremities as recommended. The nature of his occupation requires long periods of idle sitting. A lengthy discussion has been undertaken as to the appropriate conservative treatment measures relative to the patient's presenting symptoms and manifestations. The patient has been treated for numerous weeks relative to the swelling, edema, and ulcerations in his lower extremities. However, the degree of swelling and edema, and the expanding ulcerations in the patient's lower extremities, associated with the development of cellulitis, prompted the patient to be referred to the emergency department for inpatient admission. The patient was admitted to [facility] on September 21, where an inpatient stay transpired for 4 days. During that period of time, the patient was treated with intravenous antibiotics which included Augmentin and Levaquin. The patient was subsequently discharged on oral Augmentin and Cipro, the course of which has now been completed. There continues to be significant improvement in the status of the patient's lower swelling, edema, and ulcerations. The swelling and edema in the lower extremities is minimized, and healing of the patient's ulcerations has been progressive in recent weeks. 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 This has enabled him to continue with concerted efforts at leg elevation. It appears as though the patient's absence from his truck driver employment, with idle sitting for 8 to 10 hours/day, has resulted in a significant improvement in the status of his lower extremities. We are to continue with conservative treatment measures which include leg elevation, avoidance of idle sitting, activity as tolerated, and compression to the patient's lower extremities by means of CircAid's. The patient has received new CircAid garments, and is to continue wearing on a daily basis. Weight loss has also been recommended. Recently, 2 EpiFix allografts were applied topically to the ulcerations in the patient's right lower extremity. There has been a good result. At this time, there is a very small, superficial eschar at each of the 2 sites, appearing to represent end-stage healing. Therefore, these sites have been left undisturbed, in anticipation that the eschars will slough, revealing healing beneath. The patient has been provided with collagen hydrogel, which is to be applied topically on a daily basis. The patient is to return in 2 weeks for reassessment. Moisturizing skin lotion is to be applied topically to the intact skin in the gaiter areas bilaterally. The patient has recently received pneumatic compression pumps for his lower extremities, which are to be used 2-3 times daily. Total time: 24 minutes
== END 2023-12-29 23:59 | disposition home or self-care (01) ==
LOC: WC 08:00
PROVIDERS: PCP Nurse Practitioner Family; Referring Provider Surgery; Visit Provider Surgery
DX: I83.212 Varicose veins of right lower extremity with both ulcer of calf and inflammation (principal); L97.212 Non-pressure chronic ulcer of right calf with fat layer exposed; E66.01 Morbid (severe) obesity due to excess calories; Z68.43 Body mass index [BMI] 50.0-59.9, adult; I89.0 Lymphedema, not elsewhere classified; E78.5 Hyperlipidemia, unspecified; K21.9 Gastro-esophageal reflux disease without esophagitis; Z79.899 Other long term (current) drug therapy
CPT/HCPCS: 11042; 15271; 99213; Q4186; G0463

== ENCOUNTER 2024-01-18 08:00 | Outpatient (RCR) | payer BC, SELFPAY ==
[2023-12-30 00:47] VITALS: BP 172/72; PULSE 51; RESP 18; TEMP 36.2; BMI 51.7
[2024-01-04 08:01] VITALS: BP 116/45; PULSE 62; RESP 18; TEMP 36.6; BMI 51.7
--- NOTE | 2024-01-04 08:31 | PCM.WC.HP ---
History of Present Illness Date of Service: 01/04/24 Chief Complaint: Venous stasis dermatitis with swelling and edema bilaterally; venous stasis ulcerations of the lower extremities; bilateral lower extremity lymphedema History of Wound: This is a 53-year-old male with a longstanding history of chronic venous disease. He has previously been treated at this facility for venous stasis ulcerations of both lower extremities. He was most recently treated only several months prior to his current presentation. He presented at this time with bilateral lower extremity swelling, edema, and lymphedema, with venous ulcerations in the lower extremities. Upon his prior discharge, the patient had been instructed in the use of his Velcro compression garments. He had been advised to elevate his lower extremities as much as possible, to heart level, or higher. Efforts had been made to obtain pneumatic mechanical compression pumps, but the patient's insurance did not allow for this benefit. The patient has had chronic venous stasis dermatitis in his lower extremities for several years. 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 His profession requires him to sit for prolonged periods. The patient is morbidly obese. He denies a history of deep vein thrombosis in the past. He claims to sleep on a flat mattress at night. [facility] Medical History Chronic venous hypertension w/ulcer and inflammation involv left side Chronic venous hypertension w/ulcer and inflammation involv right side Chronic venous insufficiency CPAP (continuous positive airway pressure) dependence GERD (gastroesophageal reflux disease) Hyperlipidemia Hyperpigmentation Hypertension Leg pain Leg swelling Lipodermatosclerosis Lymphedema due to venous disease Morbid obesity Non-smoker Sleep apnea Venous stasis dermatitis of left lower extremity Venous ulcer of left leg Venous ulcer of right leg Home Medications furosemide 40 mg tablet 40 mg PO BID 06/24/21 [History Last Taken 09/20/23] lansoprazole 30 mg capsule,delayed release 30 mg PO DAILY 06/24/21 [History Last Taken 09/20/23] losartan 100 mg tablet 100 mg PO DAILY 06/24/21 [History Last Taken 09/20/23] pravastatin 10 mg tablet 10 mg PO DAILY 06/24/21 [History Last Taken 09/20/23] Allergy/AdvReac Type Severity Reaction Status Date / Time No Known Allergies Allergy Verified 12/20/23 07:33 Family History Father Cancer prostate Diabetes Heart disease Hypertension Grandfather Cancer unknown Grandmother Heart disease Surgical History H/O umbilical hernia repair Social History household members: none current occupational status: employed 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 Smoking Status: Never smoker Electronic Cigarette Use: not used alcohol intake: never details: The patient denies use of alcohol substance use type: does not use what type of physical activity do you participate in: none do you feel safe at home: Yes Vital Signs Vital Signs Vital Signs: 01/04/24 08:01 Temperature 97.8 F Temperature Source Temporal Pulse Rate 62 Respiratory Rate 18 Blood Pressure 116/45 L Blood Pressure Mean 68 Blood Pressure Source Monitor Blood Pressure Position Sitting Blood Pressure Location Left Arm Oxygen Delivery Method Room Air Weight Weight: 350 lb Body Mass Index (BMI) 51.7 Physical Exam Const alert, oriented x3, no apparent distress and well nourished Constitutional Narrative: The patient is morbidly obese. General Appearance: cooperative, comfortable, well kempt and well developed Orientation / Consciousness: awake, oriented to person, oriented to place and oriented to time HEENT normocephalic, head/scalp atraumatic and hearing grossly normal bilaterally Head and Scalp: normal to inspection, normocephalic and atraumatic Face and Sinus: normal facial exam External Ear: external ears normal Eyes PERRL and EOMs intact bilaterally General Eye: normal appearance of both eyes Resp normal respiratory effort, normal air movement, no retractions and no use of accessory muscles Effort and Inspection: able to speak in complete sentences and symmetric chest movement Extremity no calf tenderness General Extremity: Negative for clubbing or cyanosis Skin Wound Narrative: The swelling and edema in the patient's lower extremities is much improved, and remains at a minimum. Significant healing has occurred at the site of the large right lateral calf ulceration. There has been significant epithelialization and decrease in the size of the ulceration. There is a small amount of bioburden. At this time, a small, superficial ulceration remains on the right lateral calf. Dimensions are documented elsewhere. The right pretibial ulceration is now healed. The right lateral calf ulceration appears to be smaller in size than noted previously. There is no sign of infection or cellulitis. There has been significant improvement in the exfoliative dermatitis in the right lower extremity. The skin is largely soft and supple, markedly improved in recent weeks. The ulcerations in the patient's left lower extremity have healed and are completely epithelialized. Lipodermatosclerosis and hyperpigmentation are noted in the gaiter areas bilaterally. Neuro oriented x3, CN's II-XII intact bilaterally, moves all extremities and no focal motor deficits Sensorium / Orientation: awake, alert, oriented to person, oriented to place and oriented to time Psych Appearance: grossly normal and appropriate Attitude: calm Activity / Motor Behavior: appropriate eye contact Speech: normal speech Mood & Affect: euthymic mood Thought Process: normal thought process Thought Content: normal thought content Attention / Concentration: attention grossly intact Debridement Note Debridement Note Wound debrided: Right lateral calf ulceration Laterality: Right Type of Debridement: Excisional debridement Anesthesia Used: 5% Lidocaine Gel Depth: Down to and including healthy tissue and in the subcutaneous layer Percentage of wound debrided: 100 Instrument Used: 3mm curette Tissue Removed: Bioburden Severity: Fat Layer Exposed Amount of bleeding with debridement: Mild Bleeding Controlled with: Compression and gauze Patient tolerated procedure: Patient tolerated procedure well Post-Debridement Measurements and Additional Note: Post-Debridement Measurements/Treatment - Nurse 1 - General Ulcer Assessment Start: 01/04/24 08:01 Freq: Status: Active Protocol: .LOWLOUIE Activity Type Activity Date Activity User E-sign Co-sign Detail Recorded Client Recorded Date Recorded By Document 01/04/24 08:01 Desktop 01/04/24 08:06 KW 01/04/24 08:01 - Today's Visit Information Type of service Follow-up Visit (Physician/[facility] OPERATOR ) Arrival Mode Ambulatory Patient Identification Verified (Name & Yes ) Height and Weight Body Mass Index (BMI) 51.7 BMI Classification Obese Vital Signs Temperature (97.8 F-99.1 F) 97.8 F Temperature Source Temporal Pulse Rate (60-100) 62 Pulse Location Monitor Respiratory Rate (12-18) 18 Respiratory rate source Observation Oxygen Delivery Method Room Air Blood Pressure (90/60-120/80) 116/45 L Blood Pressure Mean 68 Source Monitor Position Sitting Blood Pressure Location Left Arm History Since Last Visit- (Skip if this is Patient's initial visit) Have you changed medications since your No last visit? Any new allergies or adverse reactions No Had a fall/change in ADL's that may No increase risk of falls Signs or symptoms of abuse and/or No neglect since last visit Have you been in the hospital since your No last visit? Has dressing in place as prescribed Yes Has compression in place as prescribed Yes Has offloadiing in place as prescribed No Experienced any changes in pain level or No management Left Footwear Regular Shoe Right Footwear Regular Shoe Pain Scale: 0-10 Numeric Is Patient Pain Free? Yes WC - Nurse 1 - General Ulcer Measurement Start: 01/04/24 08:01 Freq: Status: Active Protocol: Activity Type Activity Date Activity User E-sign Co-sign Detail Recorded Client Recorded Date Recorded By Document 01/04/24 08:01 KW Desktop 01/04/24 08:06 KW 01/04/24 08:01 Wound Center Nurse 1 7. RLE anterior -Current Size (cm) - Length 0.3 -Current Size (cm) - Width 1 -Current Size (cm) - Depth 0.1 -Total Square Cm 0.3 -Exudate Amt Small -Exudate Type Serosanguineous -Wound Margin Distinct, Outline Attached -Granulation Amt Large (67-100%) -Granulation Quality Red -Texture (Earlene-wound Skin Appearance) Assessed, Scarring -Moisture (Earlene-wound Skin Appearance) Assessed -Color (Earlene-wound Skin Appearance) Assessed -Temperature (Earlene-wound Skin No Abnormality Appearance) (Pt Warm) -Ulcer Cleansing Rinsed/ Irrigated with Saline -Anesthetic Used 5% Lidocaine Gel Right Calf (cm) 45 Assessment/Plan Assessment/Plan (1) Lymphedema due to venous disease: CODE(S): I89.0 - Lymphedema, not elsewhere classified; I99.9 - Unspecified disorder of circulatory system (2) Venous ulcer of right leg: CODE(S): I83.019 - Varicose veins of right lower extremity with ulcer of unspecified site; L97.919 - Non-pressure chronic ulcer of unspecified part of right lower leg with unspecified severity (3) Chronic venous hypertension w/ulcer and inflammation involv right side: CODE(S): I87.331 - Chronic venous hypertension (idiopathic) with ulcer and inflammation of right lower extremity (4) Venous ulcer of left leg: CODE(S): I83.029 - Varicose veins of left lower extremity with ulcer of unspecified site; L97.929 - Non-pressure chronic ulcer of unspecified part of left lower leg with unspecified severity (5) Chronic venous hypertension w/ulcer and inflammation involv left side: CODE(S): I87.332 - Chronic venous hypertension (idiopathic) with ulcer and inflammation of left lower extremity (6) Chronic venous hypertension with inflammation involving left side: CODE(S): I87.322 - Chronic venous hypertension (idiopathic) with inflammation of left lower extremity (7) Venous stasis dermatitis of left lower extremity: CODE(S): I87.2 - Venous insufficiency (chronic) (peripheral) (8) Venous hypertension, chronic, with ulcer and inflammation: CODE(S): I87.339 - Chronic venous hypertension (idiopathic) with ulcer and inflammation of unspecified lower extremity; L97.909 - Non-pressure chronic ulcer of unspecified part of unspecified lower leg with unspecified severity QUALIFIERS: Laterality: right Qualified Code(s): I87.331 - Chronic venous hypertension (idiopathic) with ulcer and inflammation of right lower extremity; L97.919 - Non-pressure chronic ulcer of unspecified part of right lower leg with unspecified severity (9) Leg swelling: CODE(S): M79.89 - Other specified soft tissue disorders (10) Leg pain: CODE(S): M79.606 - Pain in leg, unspecified QUALIFIERS: Laterality: bilateral Qualified Code(s): M79.604 - Pain in right leg; M79.605 - Pain in left leg (11) Hyperlipidemia: CODE(S): E78.5 - Hyperlipidemia, unspecified (12) Hypertension: CODE(S): I10 - Essential (primary) hypertension (13) Lipodermatosclerosis: CODE(S): I83.10 - Varicose veins of unspecified lower extremity with inflammation (14) Hyperpigmentation: CODE(S): L81.9 - Disorder of pigmentation, unspecified (15) Morbid obesity: CODE(S): E66.01 - Morbid (severe) obesity due to excess calories (16) H/O umbilical hernia repair: CODE(S): Z98.890 - Other specified postprocedural states; Z87.19 - Personal history of other diseases of the digestive system (17) Chronic venous insufficiency: CODE(S): I87.2 - Venous insufficiency (chronic) (peripheral) PLAN: Plan This is a 53-year-old male with a longstanding history of chronic venous insufficiency, venous hypertension with inflammation and ulceration, and prior episodes of venous stasis ulcerations. He also experiences chronic swelling, edema, and lymphedema in his lower extremities. 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 The patient's occupation prevents him from elevating his lower extremities as recommended. The nature of his occupation requires long periods of idle sitting. A lengthy discussion has been undertaken as to the appropriate conservative treatment measures relative to the patient's presenting symptoms and manifestations. The patient has been treated for numerous weeks relative to the swelling, edema, and ulcerations in his lower extremities. However, the degree of swelling and edema, and the expanding ulcerations in the patient's lower extremities, associated with the development of cellulitis, prompted the patient to be referred to the emergency department for inpatient admission. The patient was admitted to [facility] on September 21, where an inpatient stay transpired for 4 days. During that period of time, the patient was treated with intravenous antibiotics which included Augmentin and Levaquin. The patient was subsequently discharged on oral Augmentin and Cipro, the course of which has now been completed. There continues to be significant improvement in the status of the patient's lower swelling, edema, and ulcerations. The swelling and edema in the lower extremities is minimized, and healing of the patient's ulcerations has been progressive in recent weeks. 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 This has enabled him to continue with concerted efforts at leg elevation. 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 We are to continue with conservative treatment measures which include leg elevation, avoidance of idle sitting, activity as tolerated, and compression to the patient's lower extremities by means of CircAid's. The patient has received new CircAid garments, and is to continue wearing on a daily basis. Weight loss has also been recommended. Recently, 2 EpiFix allografts were applied topically to the ulcerations in the patient's right lower extremity. There has been a good result. At this time, there is a very small, superficial ulceration on the right lateral calf. The right pretibial ulceration is completely healed. The patient has been provided with collagen hydrogel, which is to be applied topically on a daily basis to the remaining ulceration. The patient is to return in 2 weeks for reassessment. Moisturizing skin lotion is to be applied topically to the intact skin in the gaiter areas bilaterally. The patient has recently received pneumatic compression pumps for his lower extremities, which are to be used 2-3 times daily. Total time: 25 minutes
[2024-01-18 08:11] VITALS: BP 148/63; PULSE 64; RESP 18; TEMP 36.7; BMI 51.7
--- NOTE | 2024-01-18 08:29 | HP.PCM_ITS ---
History of Present Illness Date of Service: 01/18/24 Chief Complaint: Venous stasis dermatitis with swelling and edema bilaterally; venous stasis ulcerations of the lower extremities; bilateral lower extremity lymphedema History of Wound: This is a 53-year-old male with a longstanding history of chronic venous disease. He has previously been treated at this facility for venous stasis ulcerations of both lower extremities. He was most recently treated only several months prior to his current presentation. He presented at this time with bilateral lower extremity swelling, edema, and lymphedema, with venous ulcerations in the lower extremities. Upon his prior discharge, the patient had been instructed in the use of his Velcro compression garments. He had been advised to elevate his lower extremities as much as possible, to heart level, or higher. Efforts had been made to obtain pneumatic mechanical compression pumps, but the patient's insurance did not allow for this benefit. The patient has had chronic venous stasis dermatitis in his lower extremities for several years. 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 His profession requires him to sit for prolonged periods. The patient is morbidly obese. He denies a history of deep vein thrombosis in the past. He claims to sleep on a flat mattress at night. [facility] Medical History Chronic venous hypertension w/ulcer and inflammation involv left side Chronic venous hypertension w/ulcer and inflammation involv right side Chronic venous insufficiency CPAP (continuous positive airway pressure) dependence GERD (gastroesophageal reflux disease) Hyperlipidemia Hyperpigmentation Hypertension Leg pain Leg swelling Lipodermatosclerosis Lymphedema due to venous disease Morbid obesity Non-smoker Sleep apnea Venous stasis dermatitis of left lower extremity Venous ulcer of left leg Venous ulcer of right leg Home Medications furosemide 40 mg tablet 40 mg PO BID 06/24/21 [History Last Taken 09/20/23] lansoprazole 30 mg capsule,delayed release 30 mg PO DAILY 06/24/21 [History Last Taken 09/20/23] losartan 100 mg tablet 100 mg PO DAILY 06/24/21 [History Last Taken 09/20/23] pravastatin 10 mg tablet 10 mg PO DAILY 06/24/21 [History Last Taken 09/20/23] Allergy/AdvReac Type Severity Reaction Status Date / Time No Known Allergies Allergy Verified 12/20/23 07:33 Family History Father Cancer prostate Diabetes Heart disease Hypertension Grandfather Cancer unknown Grandmother Heart disease Surgical History H/O umbilical hernia repair Social History household members: none current occupational status: employed 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 Smoking Status: Never smoker Electronic Cigarette Use: not used alcohol intake: never details: The patient denies use of alcohol substance use type: does not use what type of physical activity do you participate in: none do you feel safe at home: Yes Vital Signs Vital Signs Vital Signs: 01/18/24 08:11 Temperature 98.1 F Temperature Source Temporal Pulse Rate 64 Respiratory Rate 18 Blood Pressure 148/63 H Blood Pressure Mean 91 Blood Pressure Source Monitor Blood Pressure Position Semi-Fowlers Blood Pressure Location Left Arm Oxygen Delivery Method Room Air Weight Weight: 350 lb Body Mass Index (BMI) 51.7 Physical Exam Const alert, oriented x3, no apparent distress and well nourished Constitutional Narrative: The patient is morbidly obese. General Appearance: cooperative, comfortable, well kempt and well developed Orientation / Consciousness: awake, oriented to person, oriented to place and oriented to time HEENT normocephalic, head/scalp atraumatic and hearing grossly normal bilaterally Head and Scalp: normal to inspection, normocephalic and atraumatic Face and Sinus: normal facial exam External Ear: external ears normal Eyes PERRL and EOMs intact bilaterally General Eye: normal appearance of both eyes Resp normal respiratory effort, normal air movement, no retractions and no use of accessory muscles Effort and Inspection: able to speak in complete sentences and symmetric chest movement Extremity no calf tenderness General Extremity: Negative for clubbing or cyanosis Skin Wound Narrative: The swelling and edema in the patient's lower extremities is much improved, and remains at a minimum. Significant healing has occurred at the site of the large right lateral calf ulceration. There has been significant epithelialization. Only a few superficial, scattered excoriations remain on the right pretibial surface. They are generally pink and healthy in appearance. There is no sign of infection or cellulitis. There is no significant bioburden. The right pretibial ulceration remains healed. There has been significant improvement in the exfoliative dermatitis in the right lower extremity. The skin is largely soft and supple, markedly improved in recent weeks. The ulcerations in the patient's left lower extremity have healed and are completely epithelialized. Lipodermatosclerosis and hyperpigmentation are noted in the gaiter areas bilaterally. Neuro oriented x3, CN's II-XII intact bilaterally, moves all extremities and no focal motor deficits Sensorium / Orientation: awake, alert, oriented to person, oriented to place and oriented to time Psych Appearance: grossly normal and appropriate Attitude: calm Activity / Motor Behavior: appropriate eye contact Speech: normal speech Mood & Affect: euthymic mood Thought Process: normal thought process Thought Content: normal thought content Attention / Concentration: attention grossly intact Debridement Note Debridement Note No debridement was completed: No debridement was completed today Post-Debridement Measurements and Additional Note: Post-Debridement Measurements/Treatment WC - Nurse 1 - General Ulcer Assessment Start: 01/04/24 08:01 Freq: Status: Active Protocol: JUSTINE Activity Type Activity Date Activity User E-sign Co-sign Detail Recorded Client Recorded Date Recorded By Document 01/04/24 08:01 KW Desktop 01/04/24 08:06 KW Document 01/18/24 08:11 KW Desktop 01/18/24 08:15 KW 01/04/24 01/18/24 08:01 08:11 - Today's Visit Information Type of service Follow-up Visit Follow-up Visit (Physician/PUBLIC SERVICE DIRECTOR (Physician/PUBLIC SERVICE DIRECTOR ) ) Arrival Mode Ambulatory Ambulatory Patient Identification Verified (Name & Yes Yes ) Height and Weight Body Mass Index (BMI) 51.7 51.7 BMI Classification Obese Obese Vital Signs Temperature (97.8 F-99.1 F) 97.8 F 98.1 F Temperature Source Temporal Temporal Pulse Rate (60-100) 62 64 Pulse Location Monitor Monitor Respiratory Rate (12-18) 18 18 Respiratory rate source Observation Observation Oxygen Delivery Method Room Air Room Air Blood Pressure (90/60-120/80) 116/45 L 148/63 H Blood Pressure Mean 68 91 Source Monitor Monitor Position Sitting Semi-Fowlers Blood Pressure Location Left Arm Left Arm History Since Last Visit- (Skip if this is Patient's initial visit) Have you changed medications since your No No last visit? Any new allergies or adverse reactions No No Had a fall/change in ADL's that may No No increase risk of falls Signs or symptoms of abuse and/or No No neglect since last visit Have you been in the hospital since your No No last visit? Has dressing in place as prescribed Yes Yes Has compression in place as prescribed Yes No Has offloadiing in place as prescribed No N/A Experienced any changes in pain level or No No management Left Footwear Regular Shoe Regular Shoe Right Footwear Regular Shoe Regular Shoe Pain Scale: 0-10 Numeric Is Patient Pain Free? Yes Yes WC - Nurse 1 - General Ulcer Measurement Start: 01/04/24 08:01 Freq: Status: Active Protocol: Activity Type Activity Date Activity User E-sign Co-sign Detail Recorded Client Recorded Date Recorded By Document 01/04/24 08:01 KW Desktop 01/04/24 08:06 KW Document 01/18/24 08:11 KW Desktop 01/18/24 08:15 KW 01/04/24 01/18/24 08:01 08:11 Wound Center Nurse 1 7. RLE anterior -Current Size (cm) - Length 0.3 0.1 -Current Size (cm) - Width 1 0.1 -Current Size (cm) - Depth 0.1 0.1 -Total Square Cm 0.3 0.01 -Date of Last Picture (Recall this 01/18/24 field) -Photo Taken Yes -Epithelialization Large 67-100% -Exudate Amt Small Small -Exudate Type Serosanguineous Serosanguineous -Wound Margin Distinct, Distinct, Outline Outline Attached Attached -Granulation Amt Large (67-100%) Large (67-100%) -Granulation Quality Red Red -Texture (Earlene-wound Skin Appearance) Assessed, Assessed Scarring -Moisture (Earlene-wound Skin Appearance) Assessed Assessed,Dry/ Scaly -Color (Earlene-wound Skin Appearance) Assessed Assessed -Temperature (Earlene-wound Skin No Abnormality No Abnormality Appearance) (Pt Warm) (Pt Warm) -Ulcer Cleansing Rinsed/ Rinsed/ Irrigated with Irrigated with Saline Saline -Anesthetic Used 5% Lidocaine 5% Lidocaine Gel Gel Right Calf (cm) 45 50 Right Ankle (cm) 27 WC - Nurse 2 - General Ulcer CM Notes Start: 01/04/24 08:01 Freq: Status: Active Protocol: Activity Type Activity Date Activity User E-sign Co-sign Detail Recorded Client Recorded Date Recorded By Document 01/04/24 08:33 PL [id number] 01/04/24 08:34 PL 01/04/24 08:33 Wound Center Nurse 2 7. RLE anterior -Time 08:22 -Correct Patient Yes -Correct Side, Site, Position Yes -Correct Procedure Yes -Procedure Performed Yes -Type of Procedure Debridement -Clinical Debridement Subcutaneous -Tissue Removed Subcutaneous -Post Debridement (cm) - Length 0.3 -Post Debridement (cm) - Width 0.3 -Post Debridement (cm) - Depth 0.1 -Total Square (Post) (cm) 0.09 -Area of Debridement (cm) - Length 0.3 -Area of Debridement (cm) - Width 0.3 -Total Square (Area) (cm) 0.09 -Tunneling No -Undermining/Tunneling No -Circular Undermining No -Wound/Ulcer Outcome Not Healed -Ulcer Cleansing Rinsed/ Irrigated with Saline -Foul Odor after Cleansing No -Bioengineered Tissue No -Bleeding Controlled with Pressure -Treatment Response Procedure Tolerated Well -Debridement - Subq, 1st 20sq cm Yes Pain Scale: 0-10 Numeric Is Patient Pain Free? Yes - Nurse 3 - General Ulcer D/C NN Start: 01/04/24 08:01 Freq: Status: Active Protocol: Activity Type Activity Date Activity User E-sign Co-sign Detail Recorded Client Recorded Date Recorded By Document 01/04/24 08:30 MT Desktop 01/04/24 08:33 MT Document 01/18/24 08:27 KW Desktop 01/18/24 08:28 KW 01/04/24 01/18/24 08:30 08:27 Wound Care Center Nurse 3 7. RLE anterior -Ulcer Cleansing Soap and Water -Other Dressing hydrogel -Primary Dressing Covered/Secured with Dry Gauze & Dry Gauze & Roll Gauze, Roll Gauze, Secured with Secured with Tape Tape Right -Other pt own circaid Left -Other pt own circaid Pain Scale: 0-10 Numeric Is Patient Pain Free? Yes Yes WC - Visit Discharge Discharge Condition Stable Stable Ambulatory Status Ambulatory Ambulatory Transportation Private Auto Private Auto Medication Reconcilliation completed & No No provided to patient/care provider Clinical Summary of Care Provided Yes Yes Assessment/Plan Assessment/Plan (1) Lymphedema due to venous disease: CODE(S): I89.0 - Lymphedema, not elsewhere classified; I99.9 - Unspecified disorder of circulatory system (2) Venous ulcer of right leg: CODE(S): I83.019 - Varicose veins of right lower extremity with ulcer of unspecified site; L97.919 - Non-pressure chronic ulcer of unspecified part of right lower leg with unspecified severity (3) Chronic venous hypertension w/ulcer and inflammation involv right side: CODE(S): I87.331 - Chronic venous hypertension (idiopathic) with ulcer and inflammation of right lower extremity (4) Venous ulcer of left leg: CODE(S): I83.029 - Varicose veins of left lower extremity with ulcer of unspecified site; L97.929 - Non-pressure chronic ulcer of unspecified part of left lower leg with unspecified severity (5) Chronic venous hypertension w/ulcer and inflammation involv left side: CODE(S): I87.332 - Chronic venous hypertension (idiopathic) with ulcer and inflammation of left lower extremity (6) Chronic venous hypertension with inflammation involving left side: CODE(S): I87.322 - Chronic venous hypertension (idiopathic) with inflammation of left lower extremity (7) Venous stasis dermatitis of left lower extremity: CODE(S): I87.2 - Venous insufficiency (chronic) (peripheral) (8) Venous hypertension, chronic, with ulcer and inflammation: CODE(S): I87.339 - Chronic venous hypertension (idiopathic) with ulcer and inflammation of unspecified lower extremity; L97.909 - Non-pressure chronic ulcer of unspecified part of unspecified lower leg with unspecified severity QUALIFIERS: Laterality: right Qualified Code(s): I87.331 - Chronic venous hypertension (idiopathic) with ulcer and inflammation of right lower extremity; L97.919 - Non-pressure chronic ulcer of unspecified part of right lower leg with unspecified severity (9) Leg swelling: CODE(S): M79.89 - Other specified soft tissue disorders (10) Leg pain: CODE(S): M79.606 - Pain in leg, unspecified QUALIFIERS: Laterality: bilateral Qualified Code(s): M79.604 - Pain in right leg; M79.605 - Pain in left leg (11) Hyperlipidemia: CODE(S): E78.5 - Hyperlipidemia, unspecified (12) Hypertension: CODE(S): I10 - Essential (primary) hypertension (13) Lipodermatosclerosis: CODE(S): I83.10 - Varicose veins of unspecified lower extremity with inflammation (14) Hyperpigmentation: CODE(S): L81.9 - Disorder of pigmentation, unspecified (15) Morbid obesity: CODE(S): E66.01 - Morbid (severe) obesity due to excess calories (16) H/O umbilical hernia repair: CODE(S): Z98.890 - Other specified postprocedural states; Z87.19 - Personal history of other diseases of the digestive system (17) Chronic venous insufficiency: CODE(S): I87.2 - Venous insufficiency (chronic) (peripheral) PLAN: Plan This is a 53-year-old male with a longstanding history of chronic venous insufficiency, venous hypertension with inflammation and ulceration, and prior episodes of venous stasis ulcerations. He also experiences chronic swelling, edema, and lymphedema in his lower extremities. 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 The patient's occupation prevents him from elevating his lower extremities as recommended. The nature of his occupation requires long periods of idle sitting. A lengthy discussion has been undertaken as to the appropriate conservative treatment measures relative to the patient's presenting symptoms and manifestations. The patient has been treated for numerous weeks relative to the swelling, edema, and ulcerations in his lower extremities. However, the degree of swelling and edema, and the expanding ulcerations in the patient's lower extremities, associated with the development of cellulitis, prompted the patient to be referred to the emergency department for inpatient admission. The patient was admitted to [facility] on September 21, where an inpatient stay transpired for 4 days. During that period of time, the patient was treated with intravenous antibiotics which included Augmentin and Levaquin. The patient was subsequently discharged on oral Augmentin and Cipro. There continues to be significant improvement in the status of the patient's lower swelling, edema, and ulcerations. The swelling and edema in the lower extremities is minimized, and healing of the patient's ulcerations has been progressive in recent weeks. 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 However, his route is now much shorter than previously, allowing him more time each day to elevate his legs and implement conservative treatment measures which have been recommended. 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 We are to continue with conservative treatment measures which include leg elevation, avoidance of idle sitting, activity as tolerated, and compression to the patient's lower extremities by means of CircAid's. The patient has received new CircAid garments, and is to continue wearing on a daily basis. Weight loss has also been recommended. Recently, 2 EpiFix allografts were applied topically to the ulcerations in the patient's right lower extremity. There has been a good result. At this time, only a few scattered, superficial excoriations remain on the right pretibial surface. The patient has been provided with collagen hydrogel, which is to be applied topically on a daily basis to the remaining excoriations. The patient is to return in 2 weeks for reassessment. Moisturizing skin lotion is to be applied topically to the intact skin in the gaiter areas bilaterally. The patient has in his possession pneumatic compression pumps for his lower extremities, which are to be used 2-3 times daily. Total time: 26 minutes
== END 2024-01-27 23:59 | disposition home or self-care (01) ==
LOC: WC 08:00
PROVIDERS: PCP Internal Medicine; Referring Provider Surgery; Visit Provider Podiatrist
DX: I83.212 Varicose veins of right lower extremity with both ulcer of calf and inflammation (principal); L97.212 Non-pressure chronic ulcer of right calf with fat layer exposed; E66.01 Morbid (severe) obesity due to excess calories; Z68.43 Body mass index [BMI] 50.0-59.9, adult; I89.0 Lymphedema, not elsewhere classified; E78.5 Hyperlipidemia, unspecified; I10 Essential (primary) hypertension; Z79.899 Other long term (current) drug therapy
CPT/HCPCS: 11042; 99213; G0463

== ENCOUNTER 2024-02-15 08:15 | Outpatient (RCR) | payer BC, SELFPAY ==
[2024-01-28 00:34] VITALS: BP 148/63; PULSE 64; RESP 18; TEMP 36.7; BMI 51.7
[2024-02-01 08:12] VITALS: BP 156/52; PULSE 67; RESP 18; TEMP 37; BMI 51.7
--- NOTE | 2024-02-01 08:47 | PCM.WC.PN ---
History of Present Illness Date of Service: 02/01/24 Chief Complaint: Venous stasis dermatitis with swelling and edema bilaterally; venous stasis ulcerations of the lower extremities; bilateral lower extremity lymphedema History of Wound: Patient follows up for right lower extremity ulceration in setting of venous insufficiency. Patient denies any fever chills nausea vomiting chest pain calf pain shortness of breath. Patient notes improvement to right lower extremity wound. Patient performing daily dressing changes with application of CircAid's compression wraps. 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 Objective Data Objective Data Vital Signs: Vital Signs Temp Pulse Resp BP 98.6 F 67 18 156/52 H 02/01/24 08:12 02/01/24 08:12 02/01/24 08:12 02/01/24 08:12 Weight: 158.757 kg Body Mass Index (BMI) 51.7 Physical Exam Narrative Vascular: Arterial status intact with palpable DP PT pulses. +1 pitting edema noted to bilateral lower extremity with evident varicosities noted. Neurologic: Light touch protective sensation intact bilateral feet. Dermatologic: Small full-thickness ulceration noted to the right lateral leg. Stable granular base noted. Clean skin edges noted. No deep probing or undermining. Pre and postdebridement measurements documented nursing notes. Musculoskeletal: Muscular strength full to bilateral lower extremity. No wound forming deformity noted. Debridement Note Debridement Note Post-Debridement Measurements and Additional Note: Post-Debridement Measurements/Treatment - Nurse 1 - General Ulcer Assessment Start: 02/01/24 08:12 Freq: Status: Active Protocol: .LOWEXT Activity Type Activity Date Activity User E-sign Co-sign Detail Recorded Client Recorded Date Recorded By Document 02/01/24 08:12 KW Desktop 02/01/24 08:18 KW 02/01/24 08:12 - Today's Visit Information Type of service Follow-up Visit (Physician/DATA CONVERSION ANALYST ) Arrival Mode Ambulatory Patient Identification Verified (Name & Yes ) Height and Weight Body Mass Index (BMI) 51.7 BMI Classification Obese Vital Signs Temperature (97.8 F-99.1 F) 98.6 F Temperature Source Temporal Pulse Rate (60-100) 67 Pulse Location Monitor Respiratory Rate (12-18) 18 Respiratory rate source Observation Blood Pressure (90/60-120/80) 156/52 H Blood Pressure Mean (mm Hg) 86 Source Monitor Position Semi-Fowlers Blood Pressure Location Left Arm History Since Last Visit- (Skip if this is Patient's initial visit) Have you changed medications since your No last visit? Any new allergies or adverse reactions No Had a fall/change in ADL's that may No increase risk of falls Signs or symptoms of abuse and/or No neglect since last visit Have you been in the hospital since your No last visit? Has dressing in place as prescribed Yes Has compression in place as prescribed Yes Has offloadiing in place as prescribed No Experienced any changes in pain level or No management Pain Scale: 0-10 Numeric Is Patient Pain Free? Yes ELVER - Nurse 1 - General Ulcer Measurement Start: 02/01/24 08:12 Freq: Status: Active Protocol: Activity Type Activity Date Activity User E-sign Co-sign Detail Recorded Client Recorded Date Recorded By Document 02/01/24 08:12 KW Desktop 02/01/24 08:18 KW 02/01/24 08:12 Wound Center Nurse 1 7. RLE anterior -Combined with other wound No -Current Size (cm) - Length 0.1 -Current Size (cm) - Width 0.1 -Current Size (cm) - Depth 0.1 -Total Square Cm 0.01 -Tunneling No -Undermining/Tunneling No -Circular Undermining No -Exudate Amt Small -Exudate Type Serosanguineous -Wound Margin Distinct, Outline Attached -Granulation Amt Medium (34-66%) -Granulation Quality [place] -Slough/Fibrin Yes -Necrosis Amt Medium (34-66%) -Necrotic Tissue Type Adherent Slough -Structure Exposed N/A -Texture (Earlene-wound Skin Appearance) Assessed -Moisture (Earlene-wound Skin Appearance) Assessed -Color (Earlene-wound Skin Appearance) Hemosiderin Staining -Temperature (Earlene-wound Skin No Abnormality Appearance) (Pt Warm) -Tenderness on Palpation (Earlene-wound No Skin Appearance) -Ulcer Cleansing Wound Cleanser -Foul Odor after Cleansing No Lower Limb Edema Present Yes Right Calf (cm) 43.7 Right Ankle (cm) 27.5 ELVER - Nurse 2 - General Ulcer CM Notes Start: 02/01/24 08:12 Freq: Status: Active Protocol: Activity Type Activity Date Activity User E-sign Co-sign Detail Recorded Client Recorded Date Recorded By Document 02/01/24 08:37 JF Laptop 02/01/24 08:39 02/01/24 08:37 Wound Center Nurse 2 7. RLE anterior -Time 08:38 -Correct Patient Yes -Correct Side, Site, Position Yes -Correct Procedure Yes -Procedure Performed Yes -Type of Procedure Debridement -Clinical Debridement Subcutaneous -Tissue Removed Subcutaneous -Tunneling No -Undermining/Tunneling No -Circular Undermining No -Wound/Ulcer Outcome Not Healed -Ulcer Cleansing Rinsed/ Irrigated with Saline -Foul Odor after Cleansing No -Bioengineered Tissue No -Bleeding Controlled with Pressure -Treatment Response Procedure Tolerated Well -Offloading No -Debridement - Subq, 1st 20sq cm Yes Pain Scale: 0-10 Numeric Is Patient Pain Free? Yes Assessment/Plan Assessment/Plan (1) Lymphedema due to venous disease: CODE(S): I89.0 - Lymphedema, not elsewhere classified; I99.9 - Unspecified disorder of circulatory system PLAN: Exam performed Previous arterial studies reviewed, within normal limit Previous venous studies reviewed, demonstrate venous insufficiency. Will continue current treatment. Left lower extremity ulcer with 6 debrided excisionally down to including level of subcutaneous tissue of all nonviable tissue with a 3 mm dermal curette. Hemostasis obtained with light compression. Patient tolerated procedure well. Topical anesthesia used. Pre and postdebridement measurements documented nursing notes. Continue daily dressing changes with hydrogel and application of CircAid compression wraps. There is some maceration to the plantar foot recommend daily application of Betadine paint and sock/shoe change if he gets his feet wet. Patient to follow-up in 2 weeks. (2) Chronic venous hypertension w/ulcer and inflammation involv left side: CODE(S): I87.332 - Chronic venous hypertension (idiopathic) with ulcer and inflammation of left lower extremity (3) Venous stasis dermatitis of left lower extremity: CODE(S): I87.2 - Venous insufficiency (chronic) (peripheral) (4) Non-pressure chronic ulcer of right calf with fat layer exposed: CODE(S): L97.212 - Non-pressure chronic ulcer of right calf with fat layer exposed
[2024-02-15 08:12] VITALS: BP 174/66; PULSE 56; RESP 18; TEMP 35.8; BMI 51.7
--- NOTE | 2024-02-15 09:10 | PN.PCM_ITS ---
History of Present Illness Date of Service: 02/15/24 Chief Complaint: Venous stasis dermatitis with swelling and edema bilaterally; venous stasis ulcerations of the lower extremities; bilateral lower extremity lymphedema History of Wound: Patient follows up for right lower extremity ulceration in setting of venous insufficiency. Patient denies any fever chills nausea vomiting chest pain calf pain shortness of breath. Patient notes improvement to right lower extremity wound. Patient performing daily dressing changes with application of CircAid's compression wraps. 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 Objective Data Objective Data Vital Signs: Vital Signs Temp Pulse Resp BP O2 Del Method 96.4 F L 56 L 18 174/66 H Room Air 02/15/24 08:12 02/15/24 08:12 02/15/24 08:12 02/15/24 08:12 02/15/24 08:12 Oxygen Delivery Method Room Air Weight: 158.757 kg Body Mass Index (BMI) 51.7 Physical Exam Narrative Vascular: Arterial status intact with palpable DP PT pulses. +1 pitting edema noted to bilateral lower extremity with evident varicosities noted. Neurologic: Light touch protective sensation intact bilateral feet. Dermatologic: Small full-thickness ulceration noted to the right lateral leg from a new blister additional bolus noted to the anterior leg. No signs of infection.. Pre and postdebridement measurements document nursing notes. Stable granular base noted. Clean skin edges noted. No deep probing or undermining. Pre and postdebridement measurements documented nursing notes. Musculoskeletal: Muscular strength full to bilateral lower extremity. No wound forming deformity noted. Debridement Note Debridement Note Post-Debridement Measurements and Additional Note: Post-Debridement Measurements/Treatment - Nurse 1 - General Ulcer Assessment Start: 02/01/24 08:12 Freq: Status: Active Protocol: [email or web address] Activity Type Activity Date Activity User E-sign Co-sign Detail Recorded Client Recorded Date Recorded By Document 02/01/24 08:12 KW Desktop 02/01/24 08:18 KW Document 02/15/24 08:12 KW Desktop 02/15/24 08:24 KW 02/01/24 02/15/24 08:12 08:12 - Today's Visit Information Type of service Follow-up Visit Follow-up Visit (Physician/PERSONAL INJURY LEGAL ASSISTANT (Physician/PERSONAL INJURY LEGAL ASSISTANT ) ) Arrival Mode Ambulatory Ambulatory Patient Identification Verified (Name & Yes Yes ) Height and Weight Body Mass Index (BMI) 51.7 51.7 BMI Classification Obese Obese Vital Signs Temperature (97.8 F-99.1 F) 98.6 F 96.4 F L Temperature Source Temporal Temporal Pulse Rate (60-100) 67 56 L Pulse Location Monitor Monitor Respiratory Rate (12-18) 18 18 Respiratory rate source Observation Observation Oxygen Delivery Method Room Air Blood Pressure (90/60-120/80) 156/52 H 174/66 H Blood Pressure Mean (mm Hg) 86 102 Source Monitor Monitor Position Semi-Fowlers Semi-Fowlers Blood Pressure Location Left Arm Left Arm History Since Last Visit- (Skip if this is Patient's initial visit) Have you changed medications since your No No last visit? Any new allergies or adverse reactions No No Had a fall/change in ADL's that may No No increase risk of falls Signs or symptoms of abuse and/or No No neglect since last visit Have you been in the hospital since your No No last visit? Has dressing in place as prescribed Yes Yes Has compression in place as prescribed Yes No Has offloadiing in place as prescribed No N/A Experienced any changes in pain level or No No management Left Footwear Regular Shoe Right Footwear Regular Shoe Pain Scale: 0-10 Numeric Is Patient Pain Free? Yes Yes WC - Nurse 1 - General Ulcer Measurement Start: 02/01/24 08:12 Freq: Status: Active Protocol: Activity Type Activity Date Activity User E-sign Co-sign Detail Recorded Client Recorded Date Recorded By Document 02/01/24 08:12 KW [employer] 02/01/24 08:18 KW Document 02/15/24 08:12 KW Desktop 02/15/24 08:24 KW 02/01/24 02/15/24 08:12 08:12 Wound Center Nurse 1 #10 RT LAT LEG INF -Current Size (cm) - Length 1 -Current Size (cm) - Width 0.4 -Current Size (cm) - Depth 0.1 -Total Square Cm 0.4 -Date of Last Picture (Recall this 02/15/24 field) -Exudate Amt Medium -Exudate Type Serosanguineous -Wound Margin Distinct, Outline Attached -Granulation Amt Large (67-100%) -Granulation Quality Red -Texture (Earlene-wound Skin Appearance) Assessed -Moisture (Aerlene-wound Skin Appearance) Assessed -Color (Earlene-wound Skin Appearance) Assessed -Temperature (Earlene-wound Skin No Abnormality Appearance) (Pt Warm) -Tenderness on Palpation (Earlene-wound Yes Skin Appearance) -Ulcer Cleansing Rinsed/ Irrigated with Saline -Anesthetic Used 5% Lidocaine Gel #9 RT LAT LEG -Current Size (cm) - Length 2.1 -Current Size (cm) - Width 5.2 -Current Size (cm) - Depth 0.1 -Total Square Cm 10.92 -Date of Last Picture (Recall this 02/15/24 field) -Photo Taken Yes -Exudate Amt Medium -Exudate Type Serosanguineous -Wound Margin Distinct, Outline Attached -Granulation Amt Large (67-100%) -Granulation Quality Red -Texture (Earlene-wound Skin Appearance) Assessed -Moisture (Earlene-wound Skin Appearance) Assessed -Color (Earlene-wound Skin Appearance) Assessed -Temperature (Earlene-wound Skin No Abnormality Appearance) (Pt Warm) -Ulcer Cleansing Rinsed/ Irrigated with Saline -Anesthetic Used 5% Lidocaine Gel 7. RLE anterior -Combined with other wound No -Current Size (cm) - Length 0.1 0.1 -Current Size (cm) - Width 0.1 0.1 -Current Size (cm) - Depth 0.1 0.1 -Total Square Cm 0.01 0.01 -Date of Last Picture (Recall this 02/15/24 field) -Photo Taken Yes -Tunneling No -Undermining/Tunneling No -Circular Undermining No -Exudate Amt Small -Exudate Type Serosanguineous -Wound Margin Distinct, Outline Attached -Granulation Amt Medium (34-66%) -Granulation Quality [place] -Slough/Fibrin Yes -Necrosis Amt Medium (34-66%) -Necrotic Tissue Type Adherent Slough -Structure Exposed N/A -Texture (Earlene-wound Skin Appearance) Assessed Assessed -Moisture (Earlene-wound Skin Appearance) Assessed Assessed,Dry/ Scaly -Color (Earlene-wound Skin Appearance) Hemosiderin Assessed Staining -Temperature (Earlene-wound Skin No Abnormality No Abnormality Appearance) (Pt Warm) (Pt Warm) -Tenderness on Palpation (Earlene-wound No Skin Appearance) -Ulcer Cleansing Wound Cleanser -Foul Odor after Cleansing No -Anesthetic Used 5% Lidocaine Gel Lower Limb Edema Present Yes Right Calf (cm) 43.7 46.6 Right Ankle (cm) 27.5 29.8 WC - Nurse 2 - General Ulcer CM Notes Start: 02/01/24 08:12 Freq: Status: Active Protocol: Activity Type Activity Date Activity User E-sign Co-sign Detail Recorded Client Recorded Date Recorded By Document 02/01/24 08:37 Laptop 02/01/24 08:39 Document 02/15/24 08:38 Laptop 02/15/24 08:44 02/01/24 02/15/24 08:37 08:38 Wound Center Nurse 2 #10 RT LAT LEG INF -Time 08:41 -Correct Patient Yes -Correct Side, Site, Position Yes -Correct Procedure Yes -Procedure Performed Yes -Type of Procedure Debridement -Clinical Debridement Subcutaneous -Tissue Removed Subcutaneous -Post Debridement (cm) - Length 2.0 -Post Debridement (cm) - Width 6.2 -Post Debridement (cm) - Depth 0.1 -Total Square (Post) (cm) 12.40 -Area of Debridement (cm) - Length 2.0 -Area of Debridement (cm) - Width 6.2 -Total Square (Area) (cm) 12.40 -Tunneling No -Undermining/Tunneling No -Circular Undermining No -Wound/Ulcer Outcome Not Healed -Ulcer Cleansing Rinsed/ Irrigated with Saline -Foul Odor after Cleansing No -Bioengineered Tissue No -Bleeding Controlled with Pressure -Treatment Response Procedure Tolerated Well -Offloading No -Debridement - Subq, 1st 20sq cm No #9 RT LAT LEG -Correct Patient No -Correct Side, Site, Position No -Correct Procedure No -Procedure Performed No -Wound/Ulcer Outcome Not Healed 7. RLE anterior -Time 08:38 08:44 -Correct Patient Yes Yes -Correct Side, Site, Position Yes Yes -Correct Procedure Yes Yes -Procedure Performed Yes Yes -Type of Procedure Debridement Debridement -Clinical Debridement Subcutaneous Subcutaneous -Tissue Removed Subcutaneous Subcutaneous -Post Debridement (cm) - Length 0.3 -Post Debridement (cm) - Width 1.3 -Post Debridement (cm) - Depth 0.1 -Total Square (Post) (cm) 0.39 -Area of Debridement (cm) - Length 0.3 -Area of Debridement (cm) - Width 1.3 -Total Square (Area) (cm) 0.39 -Tunneling No No -Undermining/Tunneling No No -Circular Undermining No No -Wound/Ulcer Outcome Not Healed Not Healed -Ulcer Cleansing Rinsed/ Rinsed/ Irrigated with Irrigated with Saline Saline -Foul Odor after Cleansing No No -Bioengineered Tissue No No -Bleeding Controlled with Pressure Pressure -Treatment Response Procedure Procedure Tolerated Well Tolerated Well -Offloading No No -Debridement - Subq, 1st 20sq cm Yes Yes Pain Scale: 0-10 Numeric Is Patient Pain Free? Yes Yes - Nurse 3 - General Ulcer D/C NN Start: 02/01/24 08:12 Freq: Status: Active Protocol: Activity Type Activity Date Activity User E-sign Co-sign Detail Recorded Client Recorded Date Recorded By Document 02/15/24 08:52 KW Desktop 02/15/24 08:53 KW 02/15/24 08:52 Wound Care Center Nurse 3 #10 RT LAT LEG INF -Other Dressing PT OWN AG -Primary Dressing Covered/Secured with Dry Gauze & Roll Gauze, Secured with Tape #9 RT LAT LEG -Primary Dressing Applied Aquacel AG 4x4 -Primary Dressing Covered/Secured with Dry Gauze -Aquacel AG 4x4 1 7. RLE anterior -Primary Dressing Covered/Secured with Dry Gauze Right -Tubular Bandage Double Layer -Size of Tubigrip Used Size E -Size E ($) 2 Pain Scale: 0-10 Numeric Is Patient Pain Free? Yes - Visit Discharge Discharge Condition Stable Ambulatory Status Ambulatory Transportation Private Auto Medication Reconcilliation completed & No provided to patient/care provider Clinical Summary of Care Provided Yes Assessment/Plan Assessment/Plan (1) Lymphedema due to venous disease: CODE(S): I89.0 - Lymphedema, not elsewhere classified; I99.9 - Unspecified disorder of circulatory system PLAN: Exam performed Previous arterial studies reviewed, within normal limit Previous venous studies reviewed, demonstrate venous insufficiency. New onset blister and wound to right lateral leg. Noninfected. Today wound was excisionally debrided using a 5 mm dermal curette down to including level of subcutaneous tissue of all nonviable tissue. Patient tolerated procedure well. Topical anesthesia used. Pre and postdebridement measurements document nursing notes. Hemostasis obtained with light compression. Will plan for 3 times a week dressing changes with silver alginate DSD and double Tubigrip with overlying CircAid's. Follow-up in 1 week Patient noted rubbing to lateral leg and this may have contributed to the patient's wound formation. 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 I discussed with patient that he should observe for any areas in which may be causing rubbing as it is unable to be clearly discerned at this time. He will follow-up next week to make sure he is being attentive to this.. (2) Chronic venous hypertension w/ulcer and inflammation involv left side: CODE(S): I87.332 - Chronic venous hypertension (idiopathic) with ulcer and inflammation of left lower extremity (3) Venous stasis dermatitis of left lower extremity: CODE(S): I87.2 - Venous insufficiency (chronic) (peripheral) (4) Non-pressure chronic ulcer of right calf with fat layer exposed: CODE(S): L97.212 - Non-pressure chronic ulcer of right calf with fat layer exposed
--- NOTE | 2024-02-21 13:13 | WC ---
3.19.24 RT LAT LEG SUPERIOR
--- NOTE | 2024-02-21 13:14 | WC ---
3.18.24 RT LAT LE INF
--- NOTE | 2024-02-21 13:15 | WC ---
RT ANT LEG
== END 2024-02-27 23:59 | disposition home or self-care (01) ==
LOC: WC 08:15
PROVIDERS: PCP Internal Medicine; Referring Provider Surgery; Visit Provider Podiatrist
DX: I87.332 Chronic venous hypertension (idiopathic) with ulcer and inflammation of left lower extremity (principal); L97.212 Non-pressure chronic ulcer of right calf with fat layer exposed; I89.0 Lymphedema, not elsewhere classified; I87.2 Venous insufficiency (chronic) (peripheral); Z79.899 Other long term (current) drug therapy
CPT/HCPCS: 11042

== ENCOUNTER 2024-02-29 07:51 | Outpatient (RCR) | payer OTHER, SELFPAY ==
[2024-02-28 00:46] VITALS: BP 174/66; PULSE 56; RESP 18; TEMP 35.8; BMI 51.7
[2024-02-29 08:10] VITALS: BP 160/75; PULSE 62; RESP 16; TEMP 36.5; BMI 51.7
--- NOTE | 2024-02-29 08:38 | PN.PCM_ITS ---
History of Present Illness Date of Service: 02/29/24 Chief Complaint: Venous stasis dermatitis with swelling and edema bilaterally; venous stasis ulcerations of the lower extremities; bilateral lower extremity lymphedema History of Wound: Patient follows up for right lower extremity ulceration in setting of venous insufficiency. Patient denies any fever chills nausea vomiting chest pain calf pain shortness of breath. Patient notes improvement to right lower extremity wound. Patient performing daily dressing changes with application of CircAid's compression wraps. 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 Objective Data Objective Data Vital Signs: Vital Signs Temp Pulse Resp BP O2 Del Method 97.7 F L 62 16 160/75 H Room Air 02/29/24 08:10 02/29/24 08:10 02/29/24 08:10 02/29/24 08:10 02/29/24 08:10 Oxygen Delivery Method Room Air Weight: 158.757 kg Body Mass Index (BMI) 51.7 Physical Exam Narrative Vascular: Arterial status intact with palpable DP PT pulses. +1 pitting edema noted to bilateral lower extremity with evident varicosities noted. Neurologic: Light touch protective sensation intact bilateral feet. Dermatologic: Small full-thickness ulceration noted to the right lateral leg from a new blister additional bolus noted to the anterior leg. No signs of infection.. Pre and postdebridement measurements document nursing notes. Stable granular base noted. Clean skin edges noted. No deep probing or undermining. Pre and postdebridement measurements documented nursing notes. Musculoskeletal: Muscular strength full to bilateral lower extremity. No wound forming deformity noted. Debridement Note Debridement Note Post-Debridement Measurements and Additional Note: Post-Debridement Measurements/Treatment [facility] Nurse 1 - General Ulcer Assessment Start: 02/29/24 08:10 Freq: Status: Active Protocol: [email or web address] Activity Type Activity Date Activity User E-sign Co-sign Detail Recorded Client Recorded Date Recorded By Document 02/29/24 08:10 Desktop 02/29/24 08:15 RB 02/29/24 08:10 - Today's Visit Information Type of service Follow-up Visit (Physician/AIRCRAFT INSTRUMENT TESTER ) Arrival Mode Ambulatory Transfer Assistance None Patient Identification Verified (Name & Yes ) Patient Requires Transmission-Based No Precautions Safety Precautions NA Height and Weight Body Mass Index (BMI) 51.7 BMI Classification Obese Vital Signs Temperature (97.8 F-99.1 F) 97.7 F L Temperature Source Temporal Pulse Rate (60-100) 62 Pulse Location Monitor Respiratory Rate (12-18) 16 Respiratory rate source Observation Oxygen Delivery Method Room Air Blood Pressure (90/60-120/80) 160/75 H Blood Pressure Mean (mm Hg) 103 Source Monitor Position Sitting Blood Pressure Location Left Arm History Since Last Visit- (Skip if this is Patient's initial visit) Have you changed medications since your No last visit? Any new allergies or adverse reactions No Had a fall/change in ADL's that may No increase risk of falls Signs or symptoms of abuse and/or No neglect since last visit Have you been in the hospital since your No last visit? Has dressing in place as prescribed Yes Has compression in place as prescribed Yes Has offloadiing in place as prescribed N/A Experienced any changes in pain level or No management Left Footwear Regular Shoe Right Footwear Regular Shoe Pain Scale: 0-10 Numeric Is Patient Pain Free? Yes WC - Nurse 1 - General Ulcer Measurement Start: 02/29/24 08:10 Freq: Status: Active Protocol: Activity Type Activity Date Activity User E-sign Co-sign Detail Recorded Client Recorded Date Recorded By Document 02/29/24 08:10 RB Desktop 02/29/24 08:15 RB 02/29/24 08:10 Wound Center Nurse 1 #10 RT LAT LEG INF -Current Size (cm) - Length 0.1 -Current Size (cm) - Width 0.1 -Current Size (cm) - Depth 0.1 -Total Square Cm 0.01 -Photo Taken Yes -Epithelialization Large 67-100% -Tunneling No -Undermining/Tunneling No -Circular Undermining No -Exudate Amt None Present -Wound Margin Flat & Intact -Structure Exposed N/A -Texture (Earlene-wound Skin Appearance) No Abnormality -Moisture (Earlene-wound Skin Appearance) Dry/Scaly -Color (Earlene-wound Skin Appearance) Hemosiderin Staining -Temperature (Earlene-wound Skin No Abnormality Appearance) (Pt Warm) -Tenderness on Palpation (Earlene-wound No Skin Appearance) -Anesthetic Used 5% Lidocaine Gel #9 RT LAT LEG -Current Size (cm) - Length 0.1 -Current Size (cm) - Width 0.1 -Current Size (cm) - Depth 0.1 -Total Square Cm 0.01 -Photo Taken Yes -Epithelialization Large 67-100% -Exudate Amt None Present -Wound Margin Flat & Intact -Structure Exposed N/A -Texture (Earlene-wound Skin Appearance) No Abnormality -Moisture (Earlene-wound Skin Appearance) Dry/Scaly -Color (Earlene-wound Skin Appearance) Hemosiderin Staining -Temperature (Earlene-wound Skin No Abnormality Appearance) (Pt Warm) -Tenderness on Palpation (Earlene-wound No Skin Appearance) -Ulcer Cleansing Rinsed/ Irrigated with Saline -Anesthetic Used 5% Lidocaine Gel 7. RLE anterior -Current Size (cm) - Length 0.1 -Current Size (cm) - Width 0.1 -Current Size (cm) - Depth 0.1 -Total Square Cm 0.01 -Photo Taken Yes -Epithelialization Large 67-100% -Tunneling No -Undermining/Tunneling No -Exudate Amt None Present -Wound Margin Flat & Intact -Necrosis Amt None Present (0 %) -Structure Exposed N/A -Texture (Earlene-wound Skin Appearance) No Abnormality -Moisture (Earlene-wound Skin Appearance) Dry/Scaly -Color (Earlene-wound Skin Appearance) Hemosiderin Staining -Temperature (Earlene-wound Skin No Abnormality Appearance) (Pt Warm) -Tenderness on Palpation (Earlene-wound No Skin Appearance) -Ulcer Cleansing Rinsed/ Irrigated with Saline -Anesthetic Used 5% Lidocaine Gel Right Calf (cm) 44.5 Right Ankle (cm) 27.1 Assessment/Plan Assessment/Plan (1) Lymphedema due to venous disease: CODE(S): I89.0 - Lymphedema, not elsewhere classified; I99.9 - Unspecified disorder of circulatory system PLAN: Exam performed Previous arterial studies reviewed, within normal limit Previous venous studies reviewed, demonstrate venous insufficiency. Resolved lateral leg ulcer - right lower extremity. continue circaids rx for compression stockings dispensed recommended exercise, elevation and compression follow up PRN (2) Chronic venous hypertension w/ulcer and inflammation involv left side: CODE(S): I87.332 - Chronic venous hypertension (idiopathic) with ulcer and inflammation of left lower extremity (3) Venous stasis dermatitis of left lower extremity: CODE(S): I87.2 - Venous insufficiency (chronic) (peripheral) (4) Non-pressure chronic ulcer of right calf with fat layer exposed: CODE(S): L97.212 - Non-pressure chronic ulcer of right calf with fat layer exposed
--- NOTE | 2024-03-03 12:03 | WC ---
04.2.24 RT ANT LOWER EXT
--- NOTE | 2024-03-03 12:03 | WC ---
..24 RT LAT INF/SUP LEG
== END 2024-03-28 23:59 | disposition home or self-care (01) ==
LOC: WC 07:51
PROVIDERS: PCP Internal Medicine; Referring Provider Surgery; Visit Provider Podiatrist
DX: I87.332 Chronic venous hypertension (idiopathic) with ulcer and inflammation of left lower extremity (principal); L97.212 Non-pressure chronic ulcer of right calf with fat layer exposed; I87.2 Venous insufficiency (chronic) (peripheral); I89.0 Lymphedema, not elsewhere classified; Z79.899 Other long term (current) drug therapy
CPT/HCPCS: 99213; G0463

== ENCOUNTER → 2024-06-20 | Outpatient (CLI) | payer OTHER, SELFPAY ==
[2024-06-20 11:54] LABS: Absolute Lymphocyte Count 1.86 X10^3/uL (0.83-4.51); Absolute Neutrophil Count 4.2 X10^3/uL (2.0-7.7); Basophil# 0.03 X10^3/uL; Basophil% 0.4 % (0-1); Eosinophil# 0.35 X10^3/uL; Eosinophils% 4.8 % (0-5); Hematocrit 43.1 % (40-54); Hemoglobin 13.6 g/dL (13.0-16.5); Lymphocyte # 1.86 X10^3/ul (0.83-4.51); Lymphocyte % 25.6 % (19-41); Mean Corp Hgb Conc 31.6 g/dL (32-36); Mean Corpuscular Hgb 27.6 pg (27.0-32.0); Mean Corpuscular Volume 87.6 fL (80-94); Monocyte# 0.77 X10^3/uL; Monocyte% 10.6 % (0-10); NRBC Flagged by Analyzer 0 % (0-5); Neutrophil # 4.19 X10^3/uL (2.7-7.7); Neutrophil % 57.8 % (47-70); Platelet Count 262 K/mm3 (150-450); RBC Distribution Width CV 14.2 % (11.6-14.6); RBC Distribution Width SD 45.5 fl (35.1-43.9); Red Blood Count 4.92 M/mm3 (4.6-6.2); White Blood Count 7.3 K/mm3 (4.4-11.0)
[2024-06-20 13:00] LABS: ALB/GLOB Ratio 0.8 RATIO (0.9-2.4); AST(SGOT) 13 U/L (15-37); Alanine Aminotransfer ALT/SGPT 23 U/L (16-61); Albumin, Serum 3.6 g/dL (3.2-5.0); Alkaline Phosphatase 65 U/L (45-117); Anion Gap 9 (5-15); BUN 15 mg/dL (7-18); BUN/Creat Ratio 16.2 RATIO (10-20); Chloride 104 mmol/L (98-107); Creatinine, Serum 0.93 mg/dL (0.70-1.30); EST Glomerular Filtration Rate 91 mL/min (>60); Est Glom Filt Rate - Afr Amer 110 mL/min (>60); Globulin 4.3 g/dL (2.2-4.2); Glucose 114 mg/dL (74-106); Potassium 3.8 mmol/L (3.5-5.1); Protein, Total 7.9 g/dL (6.4-8.2); Sodium Level 138 mmol/L (136-145)
== END | disposition home or self-care (01) ==
LOC: BIMLAB 08:36
PROVIDERS: PCP Internal Medicine; Referring Provider Nurse Practitioner; Visit Provider Nurse Practitioner
DX: I10 Essential (primary) hypertension (principal); E78.2 Mixed hyperlipidemia
CPT/HCPCS: 36415; 80053; 85025

== ENCOUNTER → 2024-08-23 | Outpatient (CLI) | payer OTHER, SELFPAY ==
--- NOTE | 2024-08-23 07:57 | US_ITS ---
STUDY: ABDOMINAL ULTRASOUND - RIGHT UPPER QUADRANT REASON FOR VISIT: Male, 54 years old . Right upper quadrant pain. TECHNIQUE: Ultrasound evaluation of the right upper quadrant was performed with real-time and static miles-scale imaging. TECHNICAL QUALITY: Limited. Examination limited due to obesity. COMPARISON: None. FINDINGS: Liver: The liver is enlarged and measures 21.7 cm. There is increased echogenicity consistent with fatty infiltration. The bile ducts are within normal limits. There is hepatic color flow. The direction of portal flow is hepatopetal. There is no demonstrated mass lesion. Gallbladder: Normal distended gallbladder. The gallbladder wall measures 3.1 mm. There is a negative sonographic Friend''s sign. There is no pericholecystic fluid. There are multiple echogenic structures within the gallbladder, consistent with multiple gallstones. Common Bile Duct (C.B.D.): The common bile duct measures 4 mm. Pancreas: Limited visualization of the pancreas due to overlying bowel gas. Right Kidney: Normal size of the right kidney. The right kidney measures 11.5 cm x 5.9 cm x 5.7 cm. Normal renal cortex. The right cortex measures 1.7 cm. There is no demonstrated renal mass or cyst. There is no right hydronephrosis. US/Abdomen Limited IMPRESSION: Hepatomegaly and fatty infiltration of the liver. Multiple gallstones. Electronically Signed: Mark Weeks MD at 14:48 EDT ,
== END | disposition home or self-care (01) ==
LOC: US 07:56
PROVIDERS: PCP Internal Medicine; Referring Provider Physician Assistant; Visit Provider Physician Assistant
DX: R10.11 Right upper quadrant pain (principal)
CPT/HCPCS: 76705

== ENCOUNTER → 2025-01-25 | Outpatient (CLI) | payer OTHER, SELFPAY ==
[2025-01-25 12:28] LABS: Absolute Lymphocyte Count 1.83 X10^3/uL (0.83-4.51); Basophil# 0.03 X10^3/uL; Basophil% 0.4 % (0-1); Eosinophil# 0.31 X10^3/uL; Eosinophils% 4.5 % (0-5); Hematocrit 43.8 % (40-54); Hemoglobin 14.1 g/dL (13.0-16.5); Lymphocyte # 1.83 X10^3/ul (0.83-4.51); Lymphocyte % 26.4 % (19-41); Mean Corp Hgb Conc 32.2 g/dL (32-36); Mean Corpuscular Hgb 28.4 pg (27.0-32.0); Mean Corpuscular Volume 88.3 fL (80-94); Monocyte# 0.68 X10^3/uL; Monocyte% 9.8 % (0-10); NRBC Flagged by Analyzer 0 % (0-5); Neutrophil # 4.02 X10^3/uL (2.7-7.7); Neutrophil % 58.2 % (47-70); Platelet Count 260 K/mm3 (150-450); RBC Distribution Width CV 14.2 % (11.6-14.6); RBC Distribution Width SD 45.5 fl (35.1-43.9); Red Blood Count 4.96 M/mm3 (4.6-6.2); White Blood Count 6.9 K/mm3 (4.4-11.0)
[2025-01-25 13:47] LABS: ALB/GLOB Ratio 1.2 RATIO (0.9-2.4); AST(SGOT) 23 U/L (<=37); Alanine Aminotransfer ALT/SGPT 24 U/L (<=46); Albumin, Serum 4.1 g/dL (3.5-5.0); Alkaline Phosphatase 55 U/L (40-129); Anion Gap 8 (5-15); BUN 22 mg/dL (4-19); BUN/Creat Ratio 26.1 RATIO (10-20); Calcium 9.2 mg/dL (7.6-11.0); Carbon Dioxide 25.8 mmol/L (22.0-29.0); Chloride 103 mmol/L (96-108); Creatinine, Serum 0.8 mg/dL (0.8-1.3); EST Glomerular Filtration Rate 105 (>60); Globulin 3.5 g/dL (2.2-4.2); Glucose 102 mg/dL (70-99); Potassium 4.3 mmol/L (3.3-5.1); Protein, Total 7.6 g/dL (5.9-8.4); Sodium Level 137 mmol/L (133-145); Total Bilirubin 0.71 mg/dL (0.00-1.30)
[2025-01-25 20:35] LABS: Cholesterol 132 mg/dL (<=200); High Density Lipoprotein 39 mg/dL; Low Density Lipoprotein Calc. 79 mg/dL; Triglycerides 71 mg/dL; Very Low Density Lipoprotein 14 mg/dL (5-40); cholesterol:hdl ratio screen 3.38
== END | disposition home or self-care (01) ==
LOC: BIMLAB 09:12
PROVIDERS: PCP Internal Medicine; Referring Provider Internal Medicine; Visit Provider Internal Medicine
DX: I10 Essential (primary) hypertension (principal); E78.2 Mixed hyperlipidemia
CPT/HCPCS: 36415; 80053; 80061; 85025

== ENCOUNTER → 2025-03-02 | Outpatient (CLI) | payer OTHER, SELFPAY ==
--- NOTE | 2025-03-02 07:31 | ECHOCS_ITS ---
Reason For Study Reason For Study: Dyspnea/SOB Procedure This was a 2D Doppler, Color Flow transthoracic echocardiogram. The study was technically difficult. Contrast injection was performed. Exam performed in department. Left Ventricle Normal LV size. Mild concentric left ventricular hypertrophy. Left ventricular systolic function is normal. The left ventricular ejection fraction is 60 %. No regional wall motion abnormalities noted. Right Ventricle Normal RV size. Normal systolic function. Atria The left atrium is moderately enlarged. Normal right atrium. Mitral Valve Normal mitral valve. Tricuspid Valve Normal tricuspid valve. Aortic Valve Normal aortic valve. Pulmonic Valve The pulmonic valve is not well visualized. Great Vessels Normal sized aortic root. The pulmonary artery is normal size. Inferior vena cava collapse with respiration. Pericardium/Pleural No pericardial effusion. Medication 22 gauge I.V. with prn adaptor inserted into right arm. Diluted definity 2ml given slow IV push to enhance endocardial definition. MMode/2D Measurements & Calculations LVIDd: 5.0 cm IVSd: 1.2 cm Ao root diam: 3.2 cm LVIDs: 3.2 cm LVPWd: 1.4 cm FS: 36.9 % LAV(MOD-bp): 106.0 ml LA A4 area: 29.3 cm2 LA dimension(2D): 4.9 cm LAV(MOD-bp) Indexed: 39.5 ml/m2 LAV(MOD-sp2): 89.7 ml LAV(MOD-sp4): 109.6 ml Time Measurements MV dec time: 0.19 sec Doppler Measurements & Calculations MV E max wily: 87.9 cm/sec Lat Peak E' Wily: 16.9 cm/sec Med Peak E' Wily: 14.7 cm/sec MV A max wily: 60.7 cm/sec E/E' lat: 5.2 E/E' med: 6.0 MV E/A: 1.4 MV V2 max: 89.3 cm/sec MV P1/2t max wily: 90.3 cm/sec Ao V2 max: 154.5 cm/sec MV max P.2 mmHg MV P1/2t: 61.6 msec Ao max P.5 mmHg MV V2 mean: 43.1 cm/sec MV dec slope: 429.3 cm/sec2 Ao V2 mean: 97.4 cm/sec MV mean P.90 mmHg Ao mean P.6 mmHg MV V2 VTI: 31.6 cm MVA(P1/2t): 3.6 cm2 Ao V2 VTI: 33.9 cm LV V1 max: 168.1 cm/sec PA V2 max: 125.5 cm/sec LV V1 max P.3 mmHg ECHO/Echo Complete W/ Contrast Interpretation Summary Normal LV size. Left ventricular systolic function is normal. The left ventricular ejection fraction is 60 %. The left atrium is moderately enlarged. Contrast injection was performed. Ordering Physician: Flower Esqueda Referring Physician: Flower Esqueda Performed By: Jay Arthur, RCS
== END | disposition home or self-care (01) ==
LOC: CVS 07:31
PROVIDERS: PCP Internal Medicine; Referring Provider Internal Medicine; Visit Provider Internal Medicine
DX: R06.02 Shortness of breath (principal)
CPT/HCPCS: 93306; Q9957; A4216; C8929